=== PATIENT | male | born 1930 | race Caucasian/White ===

== ENCOUNTER 2016-04-29 08:45 | Outpatient (RCR) | payer MEDICARE ==
--- OUTSIDE RECORDS SUMMARY | 2016-04-17 16:05 | XMS REPORT | Continuity of Care Document ---
Author Author [facility] Organization [facility] Address Unknown Phone Unavailable Care Team Providers Care Plant Accountant Name Role Phone Vipul Lincoln PCP [phone] Source Comments Some departments are not documenting in the electronic medical record. If you do not see the information that you expected, contact Release of Information in the Health Information Management department at [phone] for further assistance in locating additional records.[facility] Active Allergies and Adverse Reactions No Known Allergies Current Medications Prescription Sig. Disp. Refills Start End Date Status Date vitamins, multiple cap Take 1 Cap by mouth Active daily. Centrum Silver for Men lisinopril (PRINIVIL; Take 20 mg by mouth Active ZESTRIL) 20 mg tablet daily. aspirin 81 mg chewable Take 1 Tab by mouth 90 Tab 3 10/08/19 Active tablet daily. 15 warfarin (COUMADIN) 5 mg Take 5 mg by mouth every Active tablet other day as needed (alternate with 7.5 every other day). warfarin (COUMADIN) 7.5 Take 7.5 mg by mouth Active mg tablet every other day as needed (alternate with 5 mg). FOLIC Take by mouth daily. Active ACID/MULTIVIT-MIN/LUTEIN (CENTRUM SILVER PO) VIT Take 2 Caps by mouth Active C/E/ZN/COPPR/LUTEIN/ZEAXA daily. N (PRESERVISION AREDS 2 PO) calcium carb and Take 1 Tab by mouth three 10/18/19 Active citrate-vit D3 (CITRACAL times daily with meals. 16 + D SLOW RELEASE) 600 mg calcium- 500 unit ER tablet amLODIPine (NORVASC) 5 mg Take 5 mg by mouth daily. Active tablet atorvastatin (LIPITOR) 20 TAKE ONE TABLET BY MOUTH 90 Tab 0 02/18/20 Active mg tablet ONCE DAILY AT BEDTIME 16 leuprolide 3 month Inject 11.25 mg into the Active (LUPRON DEPOT) 11.25 muscle every 90 days. mg/1.5 mL injection docusate (COLACE) 100 mg Take 100 mg by mouth as Active capsule Needed for Constipation. melatonin 10 mg tab Take 1 Tab by mouth Active daily. ciprofloxacin HCl (CIPRO) Take 1 Tab by mouth twice 2 Tab 0 03/26/20 Active 500 mg tablet daily. 16 Active Problems Problem Noted Date Hematuria, gross 01/29/2016 Last Assessment & Plan: I had an extensive consultation w/ the pt reviewing possible causes of hematuria, including both benign & malignant etiologies. Indications for complete hematuria work-up reviewed in detail. Cystoscopy procedure reviewed in detail. Based on his history & physical exam I recommended cysto --> next avail. Hold off on CT Urogram at this time, per Dr. Harris's recommendation. After careful consideration he wishes to proceed w/ cysto. Mood changes (HCC) 01/29/2016 Last Assessment & Plan: Recommend f/u w/ PCP for further evaluation. Consider possible Haldol Rx, but this should be prescribed & managed by PCP. Insomnia 01/29/2016 Last Assessment & Plan: See mood changes A&P note. Osteopenia 10/15/2015 Overview: DEXA (10/15/2015): Severe osteopenia. Moderate to high risk for fracture. L ast Assessment & Plan: Continue calcium + Vit D supplements. Prostate cancer metastatic to bone ([facility]) 09/26/2015 Overview: Non-Nerve Sparing RRP -- 09/03/2006; Dr. Harris pT3b N0 Mx, [place] 4+3=7 w/ Tertiary 5, (+)margins. Biochemical recurrence s/p Salvage XRT, completed May 2007. Post-Salvage XRT PSA; initially undetectable, but started to increase in 2012. Bone scan (09/27/2015): Scattered osseous metastatic disease. Initiate ADT, first Lupron injection 10/15/2015. L ast Assessment & Plan: See prostate cancer A&P note. Non-ST elevated myocardial infarction (HCC) 10/26/2014 Coronary artery disease 10/26/2014 Overview: 09/20/14 Echo: EF 60%. Mild concentric LVH. Mild left atrial dilation. No significant valvular abnormalities. Mildly dilated sinuses of Valsalva. 10/02/14 Regadenoson Thallium: EF 57%. Large intense mid to distal anteroapical and inferoapical perfusion abnormality which is mostly reversible, implying high grade proximal to mid LAD disease. 10/04/14 Cath: Multivessel coronary artery disease with greater than 90% heavily calcified stenosis in the mid LAD. Moderate disease in the mid circumflex with a calcific 40% to 50% stenosis. Moderate to severe disease in a large RCA with mid RCA having 60-70% focal stenosis and a PLV branch having 70% stenosis. 10/05/14 PCI/Stent Successful orbital atherectomy and stenting with DEVORA (Promus 2.75 X 20 mm stent) in mid LAD, which was post dilated to a 3.25 size at 20 atmospheres. Dual antiplatelet therapy continued at least 1 year unless contraindicated by bleeding. Diverticulitis 09/20/2014 Prostate cancer (HCC) 07/14/2006 Overview: Non-Nerve Sparing RRP -- 09/03/2006; Dr. Harris pT3b N0 Mx, [place] 4+3=7 w/ Tertiary 5, (+)margins. Biochemical recurrence s/p Salvage XRT, completed May 2007. Post-Salvage XRT PSA; initially undetectable, but started to increase in 2012. Bone scan (09/27/2015): Scattered osseous metastatic disease. Initiate ADT, first Lupron injection 10/15/2015. L ast Assessment & Plan: PSA reviewed & responding appropriately to ADT. ED (erectile dysfunction) Overview: (+)baseline ED prior to non-nerve sparing prostatectomy. L ast Assessment & Plan: Not interested in further tx options. Obesity (BMI 30-39.9) Most Recent Encounters Date Type Specialty Providers Description 03/26/2016 Procedure visit Urology Joo Harris MD Hematuria , gross (Primary Dx) 03/19/2016 Telephone Cardiology Jessica Soares, RN Echo Results 03/14/2016 Telephone Cardiology Yesenia De Leon RN Medication Question - patient needs to hold ASA for procedure 03/26/16 03/10/2016 Hospital Cardiology Darrell Velez MD Encounter 03/10/2016 Office Visit Cardiology Darrell Velez MD Cardiac Eval - follow-up CAD, HFpEF, HTN 02/19/2016 Telephone Cardiology Jeremy Haney RN Lab Request 02/16/2016 Refill Cardiology Darrell Velez MD Medication Refill - atorvastatin 02/04/2016 Hospital Oncology Joo Harris MD Encounter 01/29/2016 Office Visit Urology Joo Harris MD Prostate cancer (HCC) (Primary Dx); Prostate cancer metastatic to bone (HCC); Osteopenia; Obesity (BMI 30-39.9); Hematuria, gross; Mood changes (HCC); Insomnia, unspecified type 01/25/2016 [facility] Maldonado Melo PA-C Malignant neoplasm of Encounter prostate Social History Tobacco Use Types Packs/Day Years Used Date Current Every Day Smoker Cigars Smokeless Tobacco: Never Used Comments: 2-5 cigars/ day. Alcohol Use Drinks/Week oz/Week Comments Yes 0.0 Last Filed Vital Signs Vital Sign Reading Time Taken Blood Pressure 148/69 03/26/2016 12:55 PM PAPER FEEDER Pulse 86 03/26/2016 12:55 PM PAPER FEEDER Temperature 36.4 C (97.6 F) 02/04/2016 12:00 PM CDT Respiratory Rate - - Height 1.626 m (5' 4") 03/26/2016 12:55 PM PAPER FEEDER Weight 89.177 kg (196 lb 9.6 oz) 03/26/2016 12:55 PM PAPER FEEDER Body Mass Index 33.73 03/26/2016 12:55 PM PAPER FEEDER Oxygen Saturation 92% 03/10/2016 9:19 AM PAPER FEEDER Plan of Care Date Type Specialty Providers Description 05/29/2016 Appointment Oncology 05/29/2016 Appointment Oncology 06/04/2016 Appointment Urology Joo Harris MD [address] [place] [address] [phone] (Fax) 06/09/2016 Appointment Cardiology Darrell Velez MD [address] [place] [address] [phone] (Fax) Health Maintenance Due Date Last Done Comments Physical (Comprehensive) 08/18/1937 Exam Pertussis Vaccine 08/18/1942 Tetanus Vaccine 08/18/1948 Shingles Vaccine 1991 Prevnar/Pneumovax (#1) 08/18/1996 Influenza Vaccine 12/06/2015 Procedures from Last 3 Months Procedure Name Priority Date/Time Associated Diagnosis Comments [facility] CYSTOURE[facility] Routine 03/26/2016 Hematuria, gross Results for this 1:26 PM PAPER FEEDER procedure are in the results section. Results from Last 3 Months CYSTOSCOPY (03/26/2016 1:26 PM) Cholo Harris MD 03/26/20161:26 PM Procedure:Cystoscopy Surgeon:Joo Harris MD Preoperative Diagnosis:History of Gross Hematuria while on Coumadin Postoperative Diagnosis:ANDREW Anesthesia:Intraurethral 2% Lidocaine Gel Complications:None. Indications for Procedure:85 y.o. male with GPH.He signed informed consent prior to procedure. Description of Operative Procedure:After he was prepped and draped in the usual sterile fashion and placed in the low lithotomy position, a flexible cystoscope was advanced into his urethra, which was noted to be nl.The membranous urethra was noted to be nl.Bladder was then entered and systematically reviewed.Bilateral ureteral orifices were nl in size, shape and position with clear efflux.Rest of the bladder was reviewed and has 2+ trabeculations.No evidence of diverticula, lesions or stones.He tolerated the procedure very well. I gave him one more day of antibiotics.I read his CT scan results to him verbatim.He says he will watch for any stone pain on the Right. Follow-up is already set up. Joo Harris MD 2-D + DOPPLER ECHOCARDIOGRAM (03/10/2016 11:30 AM) Component Value Range BSA 2.04 m2 ECHO EF 50 % Referring Provider Vipul Lincoln LVIDD 5.0 4.2-5.9 cm LVIDS 3.4 cm IVS 1.1 0.6-1.0 cm PW 1.1 0.6-1.0 cm FS 32.00 28-44 % EF 54.40 % LA size 4.2 3.0-4.0 cm LA volume 56.8 18-58 mL Left Atrium Index 27.84 10-32 Right Ventricular Basal 3.8 cm (2.4-4.2) Diameter Right Atrial Area 16.2 cm2 (<=18) Right Ventricular Mid 2.8 cm (2.0-3.5) Diameter Right Ventricular Long 6.9 cm (5.6-8.6) Diameter Ao root annulus 2.2 1.4-2.6 cm Sinus 3.8 2.1-3.5 cm STJ 2.7 1.7-3.4 cm Proximal aorta 3.4 2.1-3.4 cm AV peak velocity 1.4 m/s TV rest pulmonary artery 22 mmHg pressure E/A ratio 0.55 TDI e' 0.060 m/s E/E' ratio 10.00 MV Peak E Hamlet PW 0.600 m/s MV Peak A Hamlet 1.100 m/s Narrative LVEH=50-55% With Mild Abnormal Septal Motion And Mid To Distal Anterosepal-Apical Hypokinesis Mild Concentric LVH Mild Left Atrial Dilatation Mild Aortic Valve Sclerosis Poorly Seen Mild Mitral Annular Calcification Mild Aortic Root Dilatation No Pericardial Effusion PASP=22mmHg PROSTATIC SPECIFIC ANTIGEN-PSA (01/25/2016 10:29 AM) Component Value Range Prostatic Specific 0.03 <4.0 NG/ML Antigen Specimen Blood
[2016-04-17 16:31] LABS: BASOPHILS % (AUTO) 1 % (0-10); EOSINOPHILS # (AUTO) 0.4 10^3/uL (0.0-0.3); EOSINOPHILS % (AUTO) 7 % (0-10); LYMPHOCYTES # (AUTO) 1.4 X 10^3 (1.0-4.0); LYMPHOCYTES % (AUTO) 24 % (12-44); MEAN CORPUSCULAR HGB CONC 34 G/DL (32-36); MEAN CORPUSCULAR VOLUME 92 FL (80-99); MONOCYTES # (AUTO) 0.6 X 10^3 (0.0-1.0); MONOCYTES % (AUTO) 11 % (0-12); NEUTROPHILS # (AUTO) 3.5 X 10^3 (1.8-7.8); NEUTROPHILS % (AUTO) 58 % (42-75); PLATELET COUNT 262 10^3/uL (130-400); RED BLOOD COUNT 3.81 10^6/uL (4.35-5.85)
[2016-04-17 16:32] LABS: MEAN CORPUSCULAR HEMOGLOBIN 31 PG (25-34)
[2016-04-17 17:08] LABS: ALANINE AMINOTRANSFERASE 27 U/L (0-55); ALBUMIN 4.2 G/DL (3.2-4.5); ANION GAP 8 MMOL/L (5-14); ASPARTATE AMINO TRANSFERASE 22 U/L (5-34); BILIRUBIN,TOTAL 0.5 MG/DL (0.1-1.0); BLOOD UREA NITROGEN 24 MG/DL (7-18); BUN/CREATININE RATIO 21; CALCIUM 10.6 MG/DL (8.5-10.1); CARBON DIOXIDE 26 MMOL/L (21-32); CHLORIDE 106 MMOL/L (98-107); CREATININE SERUM 1.12 MG/DL (0.60-1.30); GFR ESTIMATED > 60; GLUCOSE 114 MG/DL (70-105); POTASSIUM 4.2 MMOL/L (3.6-5.0); SODIUM 140 MMOL/L (135-145); TOTAL PROTEIN 7.1 G/DL (6.4-8.2)
[~2016-04-29 08:45] MED LIST: CALC-732 PO; CALTRATE; DOCU100T7 PO; DOXY25TA43 PO; GLUC-194 PO; HYDR-757 PO; LISI20TA PO; LISI5TAB14 PO; MULT-873 PO; MULT1TAB63; NAPR220C11 PO; NAPR220T76 PO; SENN1TAB76; WARF10TA4 PO; WARF5TAB PO; WARF7.5T PO; WRF10T PO; WRF2.5T PO; ZLP10T PO
== END 2016-07-16 | disposition home or self-care (01) ==
LOC: ONC 08:45
PROVIDERS: ATTEND Internal Medicine Hematology & Oncology
DX: Z08 Encounter for follow-up examination after completed treatment for malignant neoplasm (principal); Z85.46 Personal history of malignant neoplasm of prostate; Z85.038 Personal history of other malignant neoplasm of large intestine
CPT/HCPCS: 36415; 80053; 82378; 84153; 85025; 99213

== ENCOUNTER 2016-10-28 10:06 | Outpatient (RCR) | payer MEDICARE ==
[2016-10-23 13:43] LABS: BASOPHILS % (AUTO) 0 % (0-10); EOSINOPHILS # (AUTO) 0.4 10^3/uL (0.0-0.3); EOSINOPHILS % (AUTO) 4 % (0-10); LYMPHOCYTES # (AUTO) 1.6 X 10^3 (1.0-4.0); LYMPHOCYTES % (AUTO) 17 % (12-44); MEAN CORPUSCULAR HEMOGLOBIN 31 PG (25-34); MEAN CORPUSCULAR HGB CONC 33 G/DL (32-36); MEAN CORPUSCULAR VOLUME 94 FL (80-99); MEAN PLATELET VOLUME 9.5 FL (7.4-10.4); MONOCYTES # (AUTO) 0.9 X 10^3 (0.0-1.0); MONOCYTES % (AUTO) 10 % (0-12); NEUTROPHILS # (AUTO) 6.3 X 10^3 (1.8-7.8); NEUTROPHILS % (AUTO) 69 % (42-75); PLATELET COUNT 266 10^3/uL (130-400); RED BLOOD COUNT 3.86 10^6/uL (4.35-5.85); WHITE BLOOD COUNT 9.1 10^3/uL (4.3-11.0)
[2016-10-23 14:23] LABS: ALANINE AMINOTRANSFERASE 21 U/L (0-55); ALBUMIN 3.9 GM/DL (3.2-4.5); ANION GAP 5 MMOL/L (5-14); ASPARTATE AMINO TRANSFERASE 17 U/L (5-34); BILIRUBIN,TOTAL 0.7 MG/DL (0.1-1.0); BLOOD UREA NITROGEN 19 MG/DL (7-18); BUN/CREATININE RATIO 18; CALCIUM 10.7 MG/DL (8.5-10.1); CARBON DIOXIDE 29 MMOL/L (21-32); CHLORIDE 105 MMOL/L (98-107); CREATININE SERUM 1.03 MG/DL (0.60-1.30); GFR ESTIMATED > 60; GLUCOSE 106 MG/DL (70-105); POTASSIUM 4.6 MMOL/L (3.6-5.0); SODIUM 139 MMOL/L (135-145); TOTAL PROTEIN 7.2 GM/DL (6.4-8.2)
== END 2017-01-03 | disposition home or self-care (01) ==
LOC: ONC 10:06
PROVIDERS: ATTEND Internal Medicine Hematology & Oncology
DX: Z08 Encounter for follow-up examination after completed treatment for malignant neoplasm (principal); C79.51 Secondary malignant neoplasm of bone; Z85.46 Personal history of malignant neoplasm of prostate; Z85.038 Personal history of other malignant neoplasm of large intestine; D64.9 Anemia, unspecified; E83.52 Hypercalcemia; Z86.718 Personal history of other venous thrombosis and embolism; Z79.01 Long term (current) use of anticoagulants; Z79.899 Other long term (current) drug therapy
CPT/HCPCS: 36415; 80053; 82378; 82728; 83540; 84153; 85025; 99213

== ENCOUNTER 2016-12-22 12:44 | Emergency (ER) | payer MEDICARE ==
[~2016-12-22] VITALS: Ht 162.6 cm; Wt 85.1 kg
--- OUTSIDE RECORDS SUMMARY | 2016-12-22 13:10 | XMS REPORT | Clinical Summary ---
Author Author [facility] Organization [facility] Address Unknown Phone Unavailable Care Team Providers Care Marketing Operations Assistant Name Role Phone PCP Unavailable Source Comments Some departments are not documenting in the electronic medical record. If you do not see the information that you expected, contact Release of Information in the Health Information Management department at [phone] for further assistance in locating additional records.[facility] Allergies No Known Allergies Current Medications Prescription Sig. [...] every Active tablet other day as needed (Thursday and ). warfarin (COUMADIN) 7.5 Take 7.5 mg by mouth Active mg tablet every other day as needed (Thursday, Thursday, Thursday, Thursday and Thursday). FOLIC Take by mouth daily. Active ACID/MULTIVIT-MIN/LUTEIN (CENTRUM SILVER PO) VIT Take 2 Caps by mouth Active C/E/ZN/COPPR/LUTEIN/ZEAXA daily. N (PRESERVISION AREDS 2 PO) calcium carb and Take 1 Tab by mouth three 10/18/19 Active citrate-vit D3 (CITRACAL times daily with meals. 16 + D SLOW RELEASE) 600 mg calcium- 500 unit ER tabletIndications: Osteopenia leuprolide 3 month Inject 11.25 mg into the Active (LUPRON DEPOT) 11.25 muscle every 90 days. mg/1.5 mL injection docusate (COLACE) 100 mg Take 100 mg by mouth as Active capsule Needed for Constipation. LOPERAMIDE HCL (IMODIUM Take by mouth. Active PO) FERROUS SULFATE (IRON PO) Take by mouth. Active carvedilol (COREG) 6.25 Take 1 Tab by mouth twice 180 Tab 3 06/10/19 Active mg tablet daily with meals. Take 17 with food. atorvastatin (LIPITOR) 20 1 Tab at bedtime daily. 90 Tab 2 06/18/19 Active mg tablet 17 amLODIPine (NORVASC) 2.5 TAKE ONE TABLET BY MOUTH 90 tablet 3 Active mg tablet ONCE DAILY 17 amLODIPine (NORVASC) 2.5 Take 1 Tab by mouth 90 Tab 1 06/10/1912/01 Discontin mg tablet daily. 17 17 ued Active Problems Problem Noted Date Candidal dermatitis 06/04/2016 Last Assessment & Plan: Recommend topical antifungal powder prn. Mood changes ([facility]) 01/29/2016 Last Assessment & Plan: Recommend f/u w/ PCP for further evaluation. Consider possible Haldol Rx, but this should be prescribed & managed by PCP. Insomnia 01/29/2016 Last Assessment & Plan: See mood changes A&P note. Osteopenia 10/15/2015 Overview: DEXA (10/15/2015): Severe osteopenia. Moderate to high risk for fracture. DEXA Scan (11/19/2016): Statistically significant interval increase in bone mineral density, now with findings of moderate osteopenia, greatest within the bilateral femoral necks. L ast Assessment & Plan: May decrease Ca + Vit D supplement down to 1 tab BID w/ meals. If Oncologist feels that Zometa may be indicated, do not see urologic contraindication at this time. Repeat DEXA ~ Nov 2018. Prostate cancer metastatic to bone ([facility]) 09/26/2015 Overview: Non-Nerve Sparing RRP -- 09/03/2006; Dr. Harris pT3b N0 Mx, [place] 4+3=7 w/ Tertiary 5, (+)margins. Biochemical recurrence s/p Salvage XRT, completed May 2007. Post-Salvage XRT PSA; initially undetectable, but started to increase in 2012. Bone scan (09/27/2015): Scattered osseous metastatic disease. Initiate ADT, first Lupron injection 10/15/2015. L ast Assessment & Plan: PSA reviewed & stable compared to prior results. Continue Lupron inj q 4 mo. RTC 8 mo w/ PSA. Non-ST elevated myocardial infarction (HCC) 10/26/2014 Coronary [...] least 1 year unless contraindicated by bleeding. 03/10/16 Echo: EF 50-55% with mild abnormal septal motion and mid to distal anteroseptal-apical hypokinesis. Mild concentric LVH. Mild LA dilatation. Mild AV sclerosis. Mild mitral annular calcification. Mild aortic root dilatation. PAP=22 MmHg. Diverticulitis 09/20/2014 Prostate cancer ([facility]) 07/14/2006 Overview: Non-Nerve Sparing RRP -- 09/03/2006; Dr. Harris pT3b N0 Mx, [place] 4+3=7 w/ Tertiary 5, (+)margins. Biochemical recurrence [...] in further tx options. 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 Androgen deprivation therapy Chronic anticoagulation Resolved Problems Problem Noted Date Resolved Date Hematuria, gross 01/29/2016 06/04/2016 Last Assessment & Plan: I had an [...] consideration he wishes to proceed w/ cysto. Encounters Date Type Specialty Care Team Description 12/01/2016 Refill Cardiology Darrell Velez MD Medication Refill (amlodipine) 11/18/2016 Office Visit Urology Joo Harris MD Prostate cancer metastatic to bone (HCC) (Primary Dx);Osteopenia of multiple sites;Hypogonadism, male;Androgen deprivation therapy;Obesity (BMI 30-39.9) 11/18/2016 [facility] Maldonado Melo PA-C Encounter 11/18/2016 [facility] Maldonado Melo PA-C Encounter 11/18/2016 [facility] Maldonado Melo PA-C Encounter 11/17/2016 [facility] Joo Harris MD Malignant neoplasm of Encounter prostate (HCC) 11/17/2016 Orders Only Urology Joo Harris MD Prostate cancer (HCC) (Primary Dx) 09/26/2016 [facility] Maldonado Melo PA-C Encounter 09/26/2016 [facility] Joo Harris MD Encounter Maldonado Melo PA-C 09/25/2016 Orders Only Urology Maldonado Melo PA-C 09/25/2016 Orders Only Oncology Joo Harris MD from Last 3 Months Family History Medical History Relation Name Comments Diabetes Brother Cancer Father Diabetes Mother Diabetes Sister Relation Name Status Comments Brother Father Mother Sister Social History Tobacco Use Types Packs/Day Years Used Date Former Smoker Cigars Quit: 09/04/2014 Smokeless Tobacco: Never Used Comments: 2-5 cigars/ day. Alcohol Use Drinks/Week oz/Week Comments Yes 0.0 Sex Assigned at Date Recorded Not on file Last Filed Vital Signs Vital Sign Reading Time Taken Blood Pressure 172/82 11/18/2016 3:48 PM CDT Pulse 78 11/18/2016 3:48 PM CDT Temperature 36.6 C (97.8 F) 09/26/2016 9:47 AM CDT Respiratory Rate 16 09/26/2016 9:47 AM CDT Oxygen Saturation 98% 09/26/2016 9:47 AM CDT Inhaled Oxygen - - Concentration Weight 90.7 kg (200 lb) 11/18/2016 3:48 PM CDT Height 162.6 cm (5' 4") 11/18/2016 3:48 PM CDT Body Mass Index 34.33 11/18/2016 3:48 PM CDT Plan of Treatment Health Maintenance Due Date Last Done Comments PHYSICAL (COMPREHENSIVE) 08/18/1937 EXAM PERTUSSIS VACCINE 08/18/1942 TETANUS VACCINE 08/18/1948 SHINGLES VACCINE 1991 PREVNAR/PNEUMOVAX (#1) 08/18/1996 INFLUENZA VACCINE 01/04/2017 Results * NM BONE SCAN WHOLEBODY (11/18/2016 1:02 PM) Specimen Performing Laboratory [facility] RESULTS Impressions Interval improvement in scattered osseous metastatic disease as described above. Approved by Morales Sanders M.D. on 11/18/2016 4:04 PM By my electronic signature, I attest that I have personally reviewed the images for this examination and formulated the interpretations and opinions expressed in this report Finalized by Tim Cyr M.D. on 11/18/2016 4:15 PM. Dictated by Morales Sanders M.D. on 11/18/2016 1:01 PM. Narrative BONE SCAN OF THE WHOLE BODY CLINICAL HISTORY: 86-year-old male. Prostate cancer. RADIOPHARMACEUTICAL: 23.9 mCi IV Technetium-99m methylene diphosphonate (MDP) TECHNIQUE: Three hours following the intravenous injection of Tc-99m MDP, a whole body bone scan was performed. Images were acquired in the anterior and posterior projections. COMPARISON: September 27, 2015 FINDINGS: Physiologic activity is present within the kidneys and bladder. Degenerative changes are seen within the shoulders, wrists/hands, hips, knees, and ankles/feet. Interval decreased uptake within focal areas of abnormal uptake within the sacrum/lumbar spine, posterior right fourth rib, posterior medial right seventh rib/costovertebral junction, and thoracic spine. Procedure Note Interface, Radiant Results - 11/18/2016 4:19 PM CDT BONE SCAN OF THE WHOLE BODY CLINICAL HISTORY: 86-year-old male. Prostate cancer. RADIOPHARMACEUTICAL: 23.9 mCi IV Technetium-99m methylene diphosphonate (MDP) TECHNIQUE: Three hours following the intravenous injection of Tc-99m MDP, a whole body bone scan was performed. Images were acquired in the anterior and posterior projections. COMPARISON: September 27, 2015 FINDINGS: Physiologic activity is present within the kidneys and bladder. Degenerative changes are seen within the shoulders, wrists/hands, hips, knees, and ankles/feet. Interval decreased uptake within focal areas of abnormal uptake within the sacrum/lumbar spine, posterior right fourth rib, posterior medial right seventh rib/costovertebral junction, and thoracic spine. IMPRESSION Interval improvement in scattered osseous metastatic disease as described above. Approved by Morales Sanders M.D. on 11/18/2016 4:04 PM By my electronic signature, I attest that I have personally reviewed the images for this examination and formulated the interpretations and opinions expressed in this report Finalized by Tim Cyr M.D. on 11/18/2016 4:15 PM. Dictated by Morales Sanders M.D. on 11/18/2016 1:01 PM. * BONE DENSITY SPINE/HIP (11/18/2016 9:11 AM) Specimen Performing Laboratory [facility] RESULTS Impressions Statistically significant interval increase in bone mineral density, now with findings of moderate osteopenia, greatest within the bilateral femoral necks. Patient is considered at moderate risk for fracture and follow-up in one year is recommended. Approved by Morales Sanders M.D. on 11/18/2016 10:30 AM By my electronic signature, I attest that I have personally reviewed the images for this examination and formulated the interpretations and opinions expressed in this report Finalized by Kang Goetz M.D. on 11/18/2016 10:57 AM. Dictated by Morales Sanders M.D. on 11/18/2016 10:14 AM. Narrative DEXA Bone Mineral Density Clinical History: 86-year-old male. Severe osteopenia. Findings: Comparison: October 15, 2015 LUMBAR SPINE, L1-L4 Current: 1.155 g/cm2, T-score of -0.7 Previous: 1.139 g/cm2, T-score of -0.8 LEFT FEMORAL NECK Current: 0.861 g/cm2, T-score of -1.6 Previous: 0.761 g/cm2, T-score of -2.4 LEFT TOTAL HIP Current: 0.945 g/cm2, T-score of -1.1 Previous: 0.908 g/cm2, T-score of -1.3 RIGHT FEMORAL NECK Current: 0.859 g/cm2, T-score of -1.6 Previous: 0.777 g/cm2, T-score of -2.3 RIGHT TOTAL HIP Current: 0.904 g/cm2, T-score of -1.4 Previous: 0.859 g/cm2, T-score of -1.7 Definitions: T-score> -0.99=Normal T-score-1.00 to -1.49=mild osteopenia T-score-1.50 to -1.99=moderate osteopenia T-score-2.00 to -2.49=severe osteopenia T-score< -2.50=osteoporosis Changes in density of <=0.05 g/cm2 are not statistically significant. RECOMMENDATIONS: Normal: Low risk for fracture - f/u in 2 years Mild/Mod osteopenia: Moderate risk for fracture - f/u in 1 year Severe osteopenia: Moderate/high risk for fracture - f/u in 1 year Osteoporosis: High risk for fracture - f/u in 1 year Procedure Note Interface, Radiant Results - 11/18/2016 11:00 AM CDT DEXA Bone Mineral Density Clinical History: 86-year-old male. Severe osteopenia. Findings: Comparison: October 15, 2015 LUMBAR SPINE, L1-L4 Current: 1.155 g/cm2, T-score of -0.7 Previous: 1.139 g/cm2, T-score of -0.8 LEFT FEMORAL NECK Current: 0.861 g/cm2, T-score of -1.6 Previous: 0.761 g/cm2, T-score of -2.4 LEFT TOTAL HIP Current: 0.945 g/cm2, T-score of -1.1 Previous: 0.908 g/cm2, T-score of -1.3 RIGHT FEMORAL NECK Current: 0.859 g/cm2, T-score of -1.6 Previous: 0.777 g/cm2, T-score of -2.3 RIGHT TOTAL HIP Current: 0.904 g/cm2, T-score of -1.4 Previous: 0.859 g/cm2, T-score of -1.7 Definitions: T-score > -0.99=Normal T-score -1.00 to -1.49=mild osteopenia T-score -1.50 to -1.99=moderate osteopenia T-score -2.00 to -2.49=severe osteopenia T-score < -2.50=osteoporosis Changes in density of <=0.05 g/cm2 are not statistically significant. RECOMMENDATIONS: Normal: Low risk for fracture - f/u in 2 years Mild/Mod osteopenia: Moderate risk for fracture - f/u in 1 year Severe osteopenia: Moderate/high risk for fracture - f/u in 1 year Osteoporosis: High risk for fracture - f/u in 1 year IMPRESSION Statistically significant interval increase in bone mineral density, now with findings of moderate osteopenia, greatest within the bilateral femoral necks. Patient is considered at moderate risk for fracture and follow-up in one year is recommended. Approved by Morales Sanders M.D. on 11/18/2016 10:30 AM By my electronic signature, I attest that I have personally reviewed the images for this examination and formulated the interpretations and opinions expressed in this report Finalized by Kang Goetz M.D. on 11/18/2016 10:57 AM. Dictated by Morales Sanders M.D. on 11/18/2016 10:14 AM. * PROSTATIC SPECIFIC ANTIGEN-PSA (11/17/2016 9:41 AM) Only the most recent of 2 results within the time period is included. Component Value Ref Range Prostatic Specific 0.02 <4.0 NG/ML Antigen Specimen Performing Laboratory Blood [facility] [address] [place] [address] from Last 3 Months
--- OUTSIDE RECORDS SUMMARY | 2016-12-22 13:11 | XMS REPORT | Encounter Summary ---
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) [address] Osteopenia of [place] [address] [place] [address] multiple sites [place], [place] Phone: P [phone] rocedures Phone: [place] BONE SCAN [phone] WHOLEBODY * Radiology Services Status Reason Specialty Diagnoses / Referred By Referred To Procedures Contact Contact No Auth Needed Radiology Diagnoses Maldonado Melo Ww Nuclear Med 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) [address] Osteopenia of [place] [address] [place] [address] multiple sites [place], [place] Phone: P [phone] rocedures Phone: [place] BONE SCAN [phone] WHOLEBODY Reason for Visit * Radiology Services Status Reason Specialty Diagnoses / Referred By Referred To Procedures Contact Contact No Auth Needed Radiology Diagnoses Maldonado Melo Ww Nuclear Med 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) [address] Osteopenia of [place] [address] [place] [address] multiple sites [place], [place] Phone: P [phone] rocedures Phone: NM BONE SCAN [phone] WHOLEBODY Encounter Details Date Type Department Care Team Description 11/18/2016 [facility] Maldonado Melo PA-C Encounter [facility] [address] [place] [address] [place] [address] [place] [address] [phone] Social History Tobacco Use Types Packs/Day Years Used Date Former Smoker Cigars Quit: 09/04/2014 Smokeless Tobacco: Never Used Comments: 2-5 cigars/ day. Alcohol Use Drinks/Week oz/Week Comments Yes 0.0 Sex Assigned at Date Recorded Not on file as of this encounter Medications at Time of Discharge Medication Sig. Disp. Refills Start Date End Date aspirin 81 mg chewable Take 1 Tab by mouth 90 Tab 3 10/07/2014 tablet daily. atorvastatin (LIPITOR) 20 1 Tab at bedtime daily. 90 Tab 2 06/17/2016 mg tablet calcium carb and Take 1 Tab by mouth three 10/18/2015 citrate-vit D3 (CITRACAL times daily with meals. + D SLOW RELEASE) 600 mg calcium- 500 unit ER tabletIndications: Osteopenia carvedilol (COREG) 6.25 Take 1 Tab by mouth twice 180 Tab 3 2016 mg tablet daily with meals. Take with food. docusate (COLACE) 100 mg Take 100 mg by mouth as capsule Needed for Constipation. FERROUS SULFATE (IRON PO) Take by mouth. FOLIC Take by mouth daily. ACID/MULTIVIT-MIN/LUTEIN (CENTRUM SILVER PO) leuprolide 3 month Inject 11.25 mg into the (LUPRON DEPOT) 11.25 muscle every 90 days. mg/1.5 mL injection lisinopril (PRINIVIL; Take 20 mg by mouth ZESTRIL) 20 mg tablet daily. LOPERAMIDE HCL (IMODIUM Take by mouth. PO) VIT Take 2 Caps by mouth C/E/ZN/COPPR/LUTEIN/ZEAXA daily. N (PRESERVISION AREDS 2 PO) vitamins, multiple cap Take 1 Cap by mouth daily. Centrum Silver for Men warfarin (COUMADIN) 5 mg Take 5 mg by mouth every tablet other day as needed (Thursday and ). warfarin (COUMADIN) 7.5 Take 7.5 mg by mouth mg tablet every other day as needed (Thursday, Thursday, Thursday, Thursday and Thursday). amLODIPine (NORVASC) 2.5 Take 1 Tab by mouth 90 Tab 1 06/09/2016 mg tablet daily. as of this encounter Plan of Treatment Not on fileas of this encounter Results * NM BONE SCAN WHOLEBODY (11/18/2016 [...] Morales Sanders M.D. on 11/18/2016 1:01 PM. in this encounter Visit Diagnoses Diagnosis Prostate cancer metastatic to bone (HCC) Osteopenia of multiple sites in this encounter Administered Medications Medication Order MAR Action Action Date Dose Rate Site RP DX Tc-99m medronate (MDP) injection Given 11/18/2016 23.9 25 millicurie 09:18 CDT millicuries 25 millicurie, Intravenous, ONCE, 1 dose, 11/18/16 at 0945 in this encounter
--- OUTSIDE RECORDS SUMMARY | 2016-12-22 13:11 | XMS REPORT | Encounter Summary ---
Author Author [facility] Organization [facility] Address Unknown Phone Unavailable Care Team Providers Care Spare Fixer Name Role Phone PCP Unavailable Encounter Details Date Type Department Care Team Description 11/17/2016 Orders Only [facility] Joo Harris MD Prostate cancer (HCC) Physicians - Urology [address] [facility] (Primary Dx) 2ND FLOOR POD A [place] [address] [place] [address] OFFICE BLDG [phone] [place] [address] Social History Tobacco Use Types Packs/Day Years Used Date Former Smoker Cigars Quit: 09/04/2014 Smokeless Tobacco: Never Used Comments: 2-5 cigars/ day. Alcohol Use Drinks/Week oz/Week Comments Yes 0.0 Sex Assigned at Date Recorded Not on file as of this encounter Plan of Treatment Not on fileas of this encounter Results * PROSTATIC SPECIFIC ANTIGEN-PSA (11/17/2016 9:41 AM) Component Value Ref Range Prostatic Specific 0.02 <4.0 NG/ML Antigen Specimen Performing Laboratory Blood [facility] [address] [place] [address] in this encounter Visit Diagnoses Diagnosis Prostate cancer (HCC) - Primary Malignant neoplasm of prostate in this encounter
--- OUTSIDE RECORDS SUMMARY | 2016-12-22 13:11 | XMS REPORT | Encounter Summary ---
Author Author [facility] Organization [facility] Address Unknown Phone Unavailable Care Team Providers Care Fingernail Sculpturer Name Role Phone PCP Unavailable Reason for Visit * Reason Comments Prostate Cancer Encounter Details Date Type Department Care Team Description 11/18/2016 Office Visit [facility] Joo Harris MD Prostate cancer Physicians - Urology [address] [facility] metastatic to bone (HCC) 2ND FLOOR POD A [place] [address] (Primary Dx);Osteopenia [address] [place] [address] of multiple OFFICE BL [phone] sites;Hypogonadism, [place], [place] male;Androgen deprivation [phone] therapy;Obesity (BMI [phone] 30-39.9) Social History Tobacco Use Types Packs/Day Years Used Date Former Smoker Cigars Quit: 09/04/2014 Smokeless Tobacco: Never Used Comments: 2-5 cigars/ day. Alcohol Use Drinks/Week oz/Week Comments Yes 0.0 Sex Assigned at Date Recorded Not on file as of this encounter Last Filed Vital Signs Vital Sign Reading Time Taken Blood Pressure 172/82 11/18/2016 3:48 PM CDT Pulse 78 11/18/2016 3:48 PM CDT Temperature - - Respiratory Rate - - Oxygen Saturation - - Inhaled Oxygen - - Concentration Weight 90.7 kg (200 lb) 11/18/2016 3:48 PM CDT Height 162.6 cm (5' 4") 11/18/2016 3:48 PM CDT Body Mass Index 34.33 11/18/2016 3:48 PM CDT in this encounter Progress Notes * Joo Harris MD - 11/18/2016 3:15 PM CDT Formatting of this note may be different from the original. Date of Service: 11/18/2016 Subjective: Darrell Brown is a 86 y.o. male. Chief Complaint Patient presents with Prostate Cancer History of Present Illness Very pleasant w/ Prostate Cancer s/p non-nerve sparing RRP on 09/03/2006. (+) BCR s/p Salvage XRT, completed May 2007. Post-Salvage XRT PSA was undetectable until May 2012. PSA slowly increasing since that time. PSA hx detailed below. Bone scan (09/27/2015): Scattered osseous metastatic disease. CT A/P (09/27/2015): 1. Prior prostatectomy and pelvic lymph node dissection without recurrent pelvic mass or lymphadenopathy. 2. 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 Initiate ADT, first Lupron injection 10/15/2015. (+)hot flashes, but not bothersome. Continues to get his Lupron injection at the [facility]. Last Lupron given on 09/26/2016. Denies appetite loss, wt loss, or bone pain. (+)more easily fatigued. Denies chest pain or [employer]. (+)h/o severe osteopenia. Currently managed w/ Calcium + Vit D supplements. States his local oncologist is concerned about his borderline elevated hypercalcemia (10/23/2016=10.7). (+)HIREN, (+)frequency, urgency. (+)interval gross hematuria presumably d/t elevated INR. Prior hematuria w/u (Mar 2016) --> Negative. Interval Hx: Notes increased weakness x 1-2 d after Lupron inj, but slowly improved w/ time. Notes increased forgetfulness. PSA Hx: Lab Results Component Value Date PSA 0.02 11/17/2016 PSA 0.01 09/26/2016 PSA 0.01 05/29/2016 PSA 0.03 01/25/2016 PSA 3.27 09/10/2015 PSA 1.41 06/08/2015 PSA 0.39 12/07/2014 PSA 0.30 06/06/2014 PSA 0.09 11/22/2013 PSA 0.05 05/27/2013 PSA 0.01 05/21/2012 PSA <0.01 05/28/2011 PSA <0.01 04/26/2010 PSA <0.01 10/25/2009 PSA 0.01 05/21/2009 PSA <0.01 11/10/2008 PSA 0.01 05/15/2008 PSA 0.01 10/27/2007 PSA 0.01 06/23/2007 PSA 0.02 02/17/2007 PSA 0.01 11/19/2006 PSA 8.62 (H) 05/11/2006 PSA 6.45 (H) 10/02/2005 PSA 6.64 (H) 12/26/2004 PSA 7.05 (H) 05/24/2004 PSA 7.00 (H) 12/18/2003 PSA 12/18/2003 Reference range: 0.0 to 4.0 Unit: ng/mL (NOTE) TEST INFORMATION: Prostate Specific Antigen The Juan Modular E170 PSA method was used. Results obtained with different assay methods or kits cannot be used interchangeably. The Juan Modular E170 PSA method is approved for use as an aid in the detection of prostate cancer when used in conjunction with a digital rectal exam in men age 50 and older. The Juan Modular E170 PSA method is also indicated for the serial measurement of PSA to aid in the prognosis and management of prostate cancer patients. Elevated PSA concentrations can only suggest the presence of prostate cancer until biopsy is performed. PSA concentrations can also be elevated in benign prostatic hyperplasia or inflammatory conditions of the prostate. PSA is generally not elevated in healthy men or men with non-prostatic carcinoma. PSA 6.70 (H) 05/25/2003 PSA 05/25/2003 Reference range: 0.0 to 4.0 Unit: ng/mL (NOTE) TEST INFORMATION: Prostate Specific Antigen The Juan Modular E170 PSA method is used. Results obtained with different assay methods or kits cannot be used interchangeably. The Juan Modular E170 PSA method is approved for use as an aid in the detection of prostate cancer when used in conjunction with a digital rectal exam in men age 50 and older. The Juan Modular E170 PSA method is also indicated for the serial measurement of PSA to aid in the prognosis and management of prostate cancer patients. Elevated PSA concentrations can only suggest the presence of prostate cancer until biopsy is performed. PSA concentrations can also be elevated in benign prostatic hyperplasia or inflammatory conditions of the prostate. PSA is generally not elevated in healthy men or men with non-prostatic carcinoma. Review of Systems Constitutional: Positive for diaphoresis and fatigue. Negative for activity change, appetite change, chills, fever and unexpected weight change. HENT: Positive for hearing loss. Negative for congestion, mouth sores and sinus pressure. Eyes: Positive for visual disturbance. Respiratory: Negative for apnea, cough, chest tightness and shortness of breath. Cardiovascular: Positive for leg swelling. Negative for chest pain and palpitations. Gastrointestinal: Negative for abdominal pain, blood in stool, constipation, diarrhea, nausea, rectal pain and vomiting. Genitourinary: Positive for hematuria. Negative for decreased urine volume, difficulty urinating, discharge, dysuria, enuresis, flank pain, frequency, genital sores, penile pain, penile swelling, scrotal swelling, testicular pain and urgency. Musculoskeletal: Negative for arthralgias, back pain, gait problem and myalgias. Skin: Negative for rash and wound. Neurological: Negative for dizziness, tremors, seizures, syncope, weakness, light-headedness, numbness and headaches. Hematological: Negative for adenopathy. Bruises/bleeds easily. Psychiatric/Behavioral: Negative for decreased concentration and dysphoric mood. The patient is not nervous/anxious. Objective: amLODIPine (NORVASC) 2.5 mg tablet Take 1 Tab by mouth daily. aspirin 81 mg chewable tablet Take 1 Tab by mouth daily. atorvastatin (LIPITOR) 20 mg tablet 1 Tab at bedtime daily. calcium carb and citrate-vit D3 (CITRACAL + D SLOW RELEASE) 600 mg calcium- 500 unit ER tablet Take 1 Tab by mouth three times daily with meals. carvedilol (COREG) 6.25 mg tablet Take 1 Tab by mouth twice daily with meals. Take with food. docusate (COLACE) 100 mg capsule Take 100 mg by mouth as Needed for Constipation. FERROUS SULFATE (IRON PO) Take by mouth. FOLIC ACID/MULTIVIT-MIN/LUTEIN (CENTRUM SILVER PO) Take by mouth daily. leuprolide 3 month (LUPRON DEPOT) 11.25 mg/1.5 mL injection Inject 11.25 mg into the muscle every 90 days. lisinopril (PRINIVIL; ZESTRIL) 20 mg tablet Take 20 mg by mouth daily. LOPERAMIDE HCL (IMODIUM PO) Take by mouth. VIT C/E/ZN/COPPR/LUTEIN/ZEAXAN (PRESERVISION AREDS 2 PO) Take 2 Caps by mouth daily. vitamins, multiple cap Take 1 Cap by mouth daily. Centrum Silver for Men warfarin (COUMADIN) 5 mg tablet Take 5 mg by mouth every other day as needed (Thursday and ). warfarin (COUMADIN) 7.5 mg tablet Take 7.5 mg by mouth every other day as needed (Thursday, Thursday, Thursday, Thursday and Thursday). Vitals: 11/18/16 1548 BP: 172/82 Pulse: 78 Weight: 90.7 kg (200 lb) Height: 162.6 cm (64") Body mass index is 34.33 kg/(m^2). Physical Exam Constitutional: He is oriented to person, place, and time. He appears well- developed and well-nourished. No distress. HENT: Head: Normocephalic and atraumatic. Eyes: No scleral icterus. Pulmonary/Chest: No respiratory distress. Abdominal: Obese. Neurological: He is alert and oriented to person, place, and time. No cranial nerve deficit. Psychiatric: He has a normal mood and affect. His behavior is normal. Judgment and thought content normal. Vitals reviewed. Lab Results Component Value Date PSA 0.02 11/17/2016 Imaging: DEXA Scan (11/19/2016): Statistically significant interval increase in bone mineral density, now with findings of moderate osteopenia, greatest within the bilateral femoral necks. Patient is considered at moderate risk for fracture and follow-up in one year is recommended. Bone Scan (11/19/2016): Interval improvement in scattered osseous metastatic disease as described above. 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 Harris pT3b N0 Mx, Pool 4+3=7 w/ Tertiary 5, (+)margins. Biochemical recurrence s/p Salvage XRT, completed May 2007. Post-Salvage XRT PSA; initially undetectable, but started to increase in 2012. Bone scan (09/27/2015): Scattered osseous metastatic disease. Initiate ADT, first Lupron injection 10/15/2015. Osteopenia DEXA (10/15/2015): Severe osteopenia. Moderate to high risk for fracture. DEXA Scan (11/19/2016): Statistically significant interval increase in bone mineral density, now with findings of moderate osteopenia, greatest within the bilateral femoral necks. Prostate cancer metastatic to bone (HCC) PSA reviewed & stable compared to prior results. Continue Lupron inj q 4 mo. RTC 8 mo w/ PSA. Osteopenia May decrease Ca + Vit D supplement down to 1 tab BID w/ meals. If Oncologist feels that Zometa may be indicated, do not see urologic contraindication at this time. Repeat DEXA ~ Nov 2018. Orders Placed This Encounter PROSTATIC SPECIFIC ANTIGEN-PSA Laz Melo PA-C Urology 100% of today's 25 min appt spent in direct [id number] consultation & coordination of care. ATTESTATION I personally interviewed and examined the patient. I have reviewed the history , physical, impression and plan outlined by the Physician Education Managers. The patient presents with (HPI) mCRPC, On examination there is stable disease*, My impression is as above, My plan is continue present rx and follow with oncology. Staff name: Joo Harris MD Date: 11/19/2016 in this encounter Plan of Treatment Name Priority Associated Diagnoses Order Schedule PROSTATIC SPECIFIC ANTIGEN-PSA Routine Prostate cancer Expected: 2017 metastatic to bone (HCC) (Approximate), Expires: 11/19/2017 as of this encounter Visit Diagnoses Diagnosis Prostate cancer metastatic to bone (HCC) - Primary Osteopenia of multiple sites Hypogonadism, male Other testicular hypofunction Androgen deprivation therapy Encounter for therapeutic drug monitoring Obesity (BMI 30-39.9) Obesity, unspecified in this encounter
--- OUTSIDE RECORDS SUMMARY | 2016-12-22 13:11 | XMS REPORT | Encounter Summary ---
Author Author [facility] Organization [facility] Address Unknown Phone Unavailable Care Team Providers Care Rn Heart Name Role Phone PCP Unavailable Reason for Visit * Reason Comments Medication Refill amlodipine Encounter Details Date Type Department Care Team Description 12/01/2016 Refill [facility] Darrell Velez MD Medication Refill [address] [place] [address] (amlodipine) [address] [place] [address] [place] [address] [phone] Social History Tobacco Use Types Packs/Day Years Used Date Former Smoker Cigars Quit: 09/04/2014 Smokeless Tobacco: Never Used Comments: 2-5 cigars/ day. Alcohol Use Drinks/Week oz/Week Comments Yes 0.0 Sex Assigned at Date Recorded Not on file as of this encounter Plan of Treatment Not on fileas of this encounter Visit Diagnoses Not on filein this encounter
--- OUTSIDE RECORDS SUMMARY | 2016-12-22 13:11 | XMS REPORT | Encounter Summary ---
Author Author [facility] Organization [facility] Address Unknown Phone Unavailable Care Team Providers Care Cartridge Assembler Name Role Phone PCP Unavailable Reason for Referral * Radiology Services Status Reason Specialty Diagnoses / Referred By Referred To Procedures Contact Contact No Auth Needed Radiology Diagnoses Maldonado Melo Ww Gen Radiology Osteopenia of [address] multiple sites [address] [place] [address] [address] [address] B[place] DENSITY [place], [place] Phone: SPINE/HIP [phone] * Radiology Services Status Reason Specialty Diagnoses / Referred By Referred To Procedures Contact Contact No Auth Needed Radiology Diagnoses Maldonado Melo Ww Gen Radiology Osteopenia of [place]-C [address] [place] [address] multiple sites [address] [place] [address] [address] [address] B[place]ENS[place], [place] Phone: SPINE/HIP [phone] Reason for Visit * Radiology Services Status Reason Specialty Diagnoses / Referred By Referred To Procedures Contact Contact No Auth Needed Radiology Diagnoses Maldonado Melo Ww Gen Radiology Osteopenia of [place]-C [address] [place] [address] multiple sites [address] [place] [address] [address] [address] BONE DENSITY [place], [place] Phone: SPINE/HIP [phone] Encounter Details Date Type Department Care Team Description 11/18/2016 [facility] Maldonado Melo PA-C Encounter [facility] [address] [place] [address] [place] [address] [phone] Social History Tobacco Use Types Packs/Day Years [...] on fileas of this encounter Results * BONE DENSITY SPINE/HIP (11/18/2016 9:11 AM) [...] Morales Sanders M.D. on 11/18/2016 10:14 AM. in this encounter Visit Diagnoses Diagnosis Osteopenia of multiple sites in this encounter
--- OUTSIDE RECORDS SUMMARY | 2016-12-22 13:11 | XMS REPORT | Encounter Summary ---
Author Author [facility] Organization [facility] Address Unknown Phone Unavailable Care Team Providers Care Supervisor Photocomposition Name Role Phone PCP Unavailable Reason for Visit * Radiology Services Status Reason Specialty Diagnoses / Referred By Referred To Procedures Contact Contact No Auth Needed Radiology Diagnoses Maldonado Melo Ww Nuclear Med Prostate cancer GIA [address] [place] metastatic to [address] bone (HCC) [address] Osteopenia of [place] [address] [place] [address] multiple sites [place], [place] Phone: P [phone] rocedures Phone: NM BONE SCAN [phone] WHOLEBODY Encounter Details Date Type Department Care Team Description 11/18/[address] [facility] Maldonado Melo PA-C Encounter [facility] [address] [place] [address] [place] [address] [place] [address] [phone] Social History Tobacco Use Types Packs/Day Years [...]
--- OUTSIDE RECORDS SUMMARY | 2016-12-22 13:11 | XMS REPORT | Encounter Summary ---
Author Author [facility] Organization [facility] Address Unknown Phone Unavailable Care Team Providers Care Conference Planner Name Role Phone PCP Unavailable Encounter Details Date Type Department Care Team Description 11/17/2016 [facility] Joo Harris MD Malignant neoplasm of Encounter [address] prostate ([place]CC) [place] [address] [address] [place] [address] [phone] Social History Tobacco Use Types Packs/Day Years [...] Performing Laboratory Blood [facility] [address] [place] [address] in this encounter Visit Diagnoses Diagnosis Prostate cancer (HCC) Malignant neoplasm of prostate in this encounter Admitting Diagnoses Diagnosis Malignant neoplasm of prostate (HCC) Malignant neoplasm of prostate in this encounter
--- OUTSIDE RECORDS SUMMARY | 2016-12-22 13:12 | XMS REPORT | Encounter Summary ---
Author Author [facility] Organization [facility] Address Unknown Phone Unavailable Care Team Providers Care Outpatient Receptionist Name Role Phone PCP Unavailable Reason for Visit * Reason Comments Heme/Onc Care Encounter Details Date Type Department Care Team Description 09/26/2016 Hospital [facility] Maldonado Melo PA-C Encounter Cancer [place] - [address] [place] [address] [address] [address] [place] [address] [phone] Social History Tobacco Use Types Packs/Day Years Used Date Former Smoker Cigars Quit: 09/04/2014 Smokeless Tobacco: Never Used Comments: 2-5 cigars/ day. Alcohol Use Drinks/Week oz/Week Comments Yes 0.0 Sex Assigned at Date Recorded Not on file as of this encounter Last Filed Vital Signs Vital Sign Reading Time Taken Blood Pressure 143/74 09/26/2016 9:47 AM CDT Pulse 88 09/26/2016 9:47 AM CDT Temperature 36.6 C (97.8 F) 09/26/2016 9:47 AM CDT Respiratory Rate 16 09/26/2016 9:47 AM CDT Oxygen Saturation 98% 09/26/2016 9:47 AM CDT Inhaled Oxygen - - Concentration Weight - - Height - - Body Mass Index - - in this encounter Discharge Instructions * Patient Instructions - Valerie Tapia RN - 09/26/2016 9:55 AM CDT [facility] Chemotherapy Instructions Darrell Brown 09/26/2016 Call Immediately to report the following: Unexplained bleeding or bleeding that will not stop Difficulty swallowing Shortness of breath, wheezing, or trouble breathing Rapid, irregular heartbeat; chest pain Dizziness, lightheadedness Rash or cut that swells or turns red, feels hot or painful, or begin to ooze Diarrhea Uncontrolled nausea or vomiting Fever of 100.4 F or higher, or chills Important Phone Numbers: Cancer Center Main Number (answered 24 hours a day) [phone] [facility] Center Scheduling (appointments) [phone] Manager Sql [phone] [employer] [phone] in this encounter Medications at Time of Discharge [...] mg tablet daily. as of this encounter Progress Notes * Valerie Tapia RN - 09/26/2016 9:56 AM CDT Patient received Lupron 30mg given to right gluteal intramuscular and tolerated without difficulty. No pertinent changes since last assessment. in this encounter Plan of Treatment Not on fileas of this encounter Visit Diagnoses Diagnosis Hypogonadism, male Other testicular hypofunction Androgen deprivation therapy Encounter for therapeutic drug monitoring Osteopenia of multiple sites Prostate cancer metastatic to bone (HCC) Prostate cancer (HCC) Malignant neoplasm of prostate in this encounter Administered Medications Medication Order MAR Action Action Date Dose Rate Site leuprolide(+) 4 month (LUPRON DEPOT) Given 09/26/2016 30 mg Gluteal, injection 30 mg 09:52 CDT Right 30 mg, Intramuscular, ONCE, 1 dose, Thu09/26/16 at 0945, For Intramuscular use ONLY. NOTE: This is a HIGH ALERT Medication. in this encounter
--- OUTSIDE RECORDS SUMMARY | 2016-12-22 13:12 | XMS REPORT | Encounter Summary ---
Author Author [facility] Organization [facility] Address Unknown Phone Unavailable Care Team Providers Care Architectural Technologist Name Role Phone PCP Unavailable Encounter Details Date Type Department Care Team Description 09/25/2016 Orders Only [facility] Joo Harris MD [facility] - [facility] Exam [address] [place] [address] [place] [address] [phone] Social History Tobacco Use Types Packs/Day Years [...]
--- OUTSIDE RECORDS SUMMARY | 2016-12-22 13:12 | XMS REPORT | Encounter Summary ---
Author Author [facility] Organization [facility] Address Unknown Phone Unavailable Care Team Providers Care Door And Arrival Attendant Name Role Phone PCP Unavailable Encounter Details Date Type Department Care Team Description 09/25/2016 Orders Only [facility] Maldonado Melo PA-C Physicians - Urology [address] MED [address] [place] [address] [address]LO[address] [phone] [place] [address] [phone] Social History Tobacco Use Types Packs/Day Years [...]
--- OUTSIDE RECORDS SUMMARY | 2016-12-22 13:12 | XMS REPORT | Encounter Summary ---
Author Author [facility] Organization [facility] Address Unknown Phone Unavailable Care Team Providers Care Computer Network Specialist Name Role Phone PCP Unavailable Encounter Details Date Type Department Care Team Description 09/26/2016 Hospital [facility] Joo Harris MD Encounter Cancer [facility] - [facility] Lab [address] [place] [address] [facility] [address] [place] [address] [phone] Maldonado Ferro PA-C [address] [place] [address] [phone] Social History Tobacco Use Types Packs/Day Years [...] this encounter Results * PROSTATIC SPECIFIC ANTIGEN-PSA (09/26/2016 9:00 AM) Component Value Ref Range Prostatic Specific 0.01 <4.0 NG/ML Antigen Specimen Performing Laboratory Blood [facility] [address] [place] [address] in this encounter Visit Diagnoses Diagnosis Prostate cancer metastatic to bone (HCC) in this encounter
--- NOTE | 2016-12-22 13:35 | ED Upper Extremity ---
General Chief Complaint: Trauma-Non Activation Stated Complaint: FALL/LEFT ARM LAC Nursing Triage Note: Patient reports falling last night about 2100, patient c/o hitting elbow on nightstand and not being able to get it to stop bleeding. patient denies LOC or hitting head. Nursing Sepsis Screen: No Definite Risk Source: patient Exam Limitations: no limitations History of Present Illness Time seen by provider: 13:32 Initial Comments To ER with a persistently bleeding wound to the dorsal left elbow after striking it on the bedside table last night at 2100. Tetanus is not up-to- date. He is on Coumadin. Onset: just prior to arrival Severity: moderate (910) Pain/Injury Location: left elbow Modifying Factors: Improves With Movement Allergies and Home Medications Allergies Coded Allergies: NKANo Known Allergies (Verified Allergy, Unknown, 01/22/06) Home Medications Docusate Sodium 100 Mg Tablet, 200 MG PO DAILY PRN for CONSTIPATION, (Reported) TAKES 2 (100MG) TABLETS Glucosam/Chondroit/C/Manganese 1 Each Capsule, 2 CAP PO DAILY, (Reported) Hydrocodone/Acetaminophen 1 Each Tablet, 1 EACH PO Q4H PRN for PAIN, #10 Prescribed by: TJ FLOWER on 02/21/16 1838 Lisinopril 20 Mg Tablet, 20 MG PO DAILY, (Reported) Multivitamins-Min/Fa/Ginkgo 1 Each Tablet, 1 TAB PO DAILY, (Reported) Naproxen Sodium 220 Mg Capsule, 220 MG PO DAILY, (Reported) Warfarin Sod 7.5 Mg Tablet, 7.5 MG PO UD, (Reported) TAKES SUN, MON, WED, THURS, FRI. Warfarin Sodium 10 Mg Tablet, 10 MG PO UD, (Reported) PATIENT TAKES ON AND SAT Constitutional: see HPI EENTM: see HPI Respiratory: no symptoms reported Cardiovascular: no symptoms reported Genitourinary: no symptoms reported Musculoskeletal: no symptoms reported Skin: no symptoms reported Psychiatric/Neurological: No Symptoms Reported Past Oyutsec-Ekaqbk-Nhsekh Hx Patient Social History Alcohol Use: Occasionally Uses Number of Drinks Today: BB Alcohol Beverage of Choice: [place] Recreational Drug Use: No Smoking Status: Never a Smoker Recent Foreign Travel: No Contact w/Someone Who Travel: No Recent Infectious Disease Expo: No Recent Hopitalizations: No Physical Abuse: No Sexual Abuse: No Immunizations Up To Date Date of Influenza Vaccine: Jan 04, 2011 Surgeries History of Surgeries: Yes (PROSTATE, HERNIA REPAIR, Colon resection) Surgeries: Abdominal Respiratory History of Respiratory Disorde: No (SMOKER/CIGARS) Cardiovascular History of Cardiac Disorders: Yes Cardiac Disorders: Hypertension Neurological History of Neurological Disord: No Reproductive System Hx Reproductive Disorders: No Gastrointestinal History of Gastrointestinal Di: Yes (Hernia repair, Colon resection) Gastrointestinal Disorders: Gastrointestinal Bleed, Diverticulosis Musculoskeletal History of Musculoskeletal Dis: No Endocrine History of Endocrine Disorders: No Cancer History of Cancer: Yes Cancer: Colon Psychosocial History of Psychiatric Problem: Yes Behavioral Health Disorders: Anxiety Suicide Risk Score: 0 Integumentary History of Skin or Integumenta: No Blood Transfusions History of Blood Disorders: Yes (SEPSIS) Family Medical History Family Medial History: Cancer of mouth 19 FATHER (PT UNSURE OF TYPE OF CANCER FATHER HAD) Diabetes mellitus 19 MOTHER G8 BROTHER Physical Exam Vital Signs Vital Sign - Last 12Hours 12/22/16 13:04 Temp 98.7 Pulse 87 Resp 18 B/P (MAP) 164/82 Pulse Ox 99 Capillary Refill : Less Than 3 Seconds General Appearance: WD/WN, no apparent distress HEENT: PERRL/EOMI, normal ENT inspection Neck: non-tender, full range of motion Respiratory: no respiratory distress, no accessory muscle use Gastrointestinal: non tender, soft Shoulder: normal inspection, non-tender Elbow/Forearm: Left, abrasions (there is a superficial skin tear to the dorsal aspect of the left elbow that is persistently oozing blood easily controlled with direct pressure. I did clean this with chlorhexidine/saline and closed with skin glue then wrapped with nonadherent gauze and Coban.) Neurologic/Psychiatric: alert, normal mood/affect, oriented x 3 Skin: normal color, warm/dry Progress/Results/Core Measures Results/Orders My Orders Orders - TJ FLOWER MEDICAL RECEPTION SPECIALIST Dipht,Pertuss(Acell),Tet Adult (Boostrix (12/22/16 13:45) Vital Signs/I&O Vital Sign - Last 12Hours 12/22/16 13:04 Temp 98.7 Pulse 87 Resp 18 B/P (MAP) 164/82 Pulse Ox 99 Blood Pressure Mean: 109 Departure Impression Impression: Primary Impression: Skin tear Disposition: 01 HOME, SELF-CARE Condition: Stable Departure-Patient Inst. Decision time for Depature: 13:34 Referrals: JOSE ALEJANDRO DONALDSON MD (PCP/Family) Primary Care Physician Patient Instructions: NO INSTRUCTIONS GIVEN Add. Discharge Instructions: 1. Return to ER for any concerns 2. You may remove the bandage tomorrow 3. All discharge instructions reviewed with patient and/or family. Voiced understanding. TJ FLOWER APRN Dec 22, 2016 13:35
[2016-12-22 13:43] VITALS: BP 164/82
[2016-12-22] MEDS ORDERED: TETANUS,DIPTH,PERTUSS P/F (BOOSTRIX) 0.5 ML VIAL IM ONE (13:45)
== END 2016-12-22 13:42 | disposition home or self-care (01) ==
LOC: EDUNIT# 12:44 → ER 12:47
DX: S51.012A Laceration without foreign body of left elbow, initial encounter (principal); I10 Essential (primary) hypertension; F41.9 Anxiety disorder, unspecified; Z80.0 Family history of malignant neoplasm of digestive organs; Z85.038 Personal history of other malignant neoplasm of large intestine; Z79.01 Long term (current) use of anticoagulants; Z87.19 Personal history of other diseases of the digestive system; W22.03XA Walked into furniture, initial encounter
CPT/HCPCS: 90715; 99284

== ENCOUNTER 2017-01-16 10:19 | Outpatient (RCR) | payer MEDICARE ==
[2017-01-16 10:32] LABS: BASOPHILS % (AUTO) 1 % (0-10); EOSINOPHILS # (AUTO) 0.4 10^3/uL (0.0-0.3); EOSINOPHILS % (AUTO) 7 % (0-10); HEMATOCRIT 37 % (40-54); HEMOGLOBIN 12.4 G/DL (13.3-17.7); LYMPHOCYTES # (AUTO) 1.3 X 10^3 (1.0-4.0); LYMPHOCYTES % (AUTO) 23 % (12-44); MEAN CORPUSCULAR HEMOGLOBIN 32 PG (25-34); MEAN CORPUSCULAR HGB CONC 34 G/DL (32-36); MEAN CORPUSCULAR VOLUME 95 FL (80-99); MEAN PLATELET VOLUME 9.5 FL (7.4-10.4); MONOCYTES # (AUTO) 0.5 X 10^3 (0.0-1.0); MONOCYTES % (AUTO) 9 % (0-12); NEUTROPHILS # (AUTO) 3.4 X 10^3 (1.8-7.8); NEUTROPHILS % (AUTO) 60 % (42-75); PLATELET COUNT 250 10^3/uL (130-400); RED CELL DISTRIBUTION WIDTH 13.8 % (10.0-14.5); WHITE BLOOD COUNT 5.7 10^3/uL (4.3-11.0)
[2017-01-16 10:55] LABS: ALBUMIN 3.9 GM/DL (3.2-4.5); BILIRUBIN,TOTAL 0.7 MG/DL (0.1-1.0); CALCIUM 10.7 MG/DL (8.5-10.1); CREATININE SERUM 1.15 MG/DL (0.60-1.30); POTASSIUM 4.6 MMOL/L (3.6-5.0); TOTAL PROTEIN 7.3 GM/DL (6.4-8.2)
== END 2017-04-16 | disposition home or self-care (01) ==
LOC: ONC 10:19
PROVIDERS: ATTEND Internal Medicine Hematology & Oncology
DX: Z08 Encounter for follow-up examination after completed treatment for malignant neoplasm (principal); C79.51 Secondary malignant neoplasm of bone; Z85.46 Personal history of malignant neoplasm of prostate; Z85.038 Personal history of other malignant neoplasm of large intestine; D64.9 Anemia, unspecified; E83.52 Hypercalcemia; Z86.718 Personal history of other venous thrombosis and embolism; Z79.01 Long term (current) use of anticoagulants; Z79.899 Other long term (current) drug therapy
CPT/HCPCS: 36415; 80053; 82378; 84153; 85025; 99213

== ENCOUNTER 2017-08-19 12:47 | Outpatient (RCR) | payer MEDICARE ==
[2017-07-17 11:47] LABS: BASOPHILS % (AUTO) 0 % (0-10); EOSINOPHILS # (AUTO) 0.4 10^3/uL (0.0-0.3); EOSINOPHILS % (AUTO) 8 % (0-10); HEMATOCRIT 36 % (40-54); HEMOGLOBIN 12.3 G/DL (13.3-17.7); LYMPHOCYTES # (AUTO) 1.6 X 10^3 (1.0-4.0); LYMPHOCYTES % (AUTO) 29 % (12-44); MEAN CORPUSCULAR HEMOGLOBIN 33 PG (25-34); MEAN CORPUSCULAR HGB CONC 35 G/DL (32-36); MEAN CORPUSCULAR VOLUME 95 FL (80-99); MEAN PLATELET VOLUME 9.8 FL (7.4-10.4); MONOCYTES # (AUTO) 0.6 X 10^3 (0.0-1.0); MONOCYTES % (AUTO) 11 % (0-12); NEUTROPHILS # (AUTO) 2.9 X 10^3 (1.8-7.8); NEUTROPHILS % (AUTO) 52 % (42-75); PLATELET COUNT 224 10^3/uL (130-400); RED BLOOD COUNT 3.76 10^6/uL (4.35-5.85); RED CELL DISTRIBUTION WIDTH 13.5 % (10.0-14.5); WHITE BLOOD COUNT 5.5 10^3/uL (4.3-11.0)
[2017-07-17 12:05] LABS: ALANINE AMINOTRANSFERASE 25 U/L (0-55); ALKALINE PHOSPHATASE 59 U/L (40-136); BILIRUBIN,TOTAL 0.6 MG/DL (0.1-1.0); BUN/CREATININE RATIO 22; CALCIUM 10.3 MG/DL (8.5-10.1); CARBON DIOXIDE 26 MMOL/L (21-32); CHLORIDE 105 MMOL/L (98-107); CREATININE SERUM 1.02 MG/DL (0.60-1.30); GFR ESTIMATED > 60; GLUCOSE 88 MG/DL (70-105); POTASSIUM 4.7 MMOL/L (3.6-5.0); SODIUM 140 MMOL/L (135-145)
== END 2017-10-15 | disposition home or self-care (01) ==
LOC: ONC 12:47
PROVIDERS: ATTEND Internal Medicine Hematology & Oncology
DX: C61 Malignant neoplasm of prostate (principal); C79.51 Secondary malignant neoplasm of bone; Z85.038 Personal history of other malignant neoplasm of large intestine; D64.9 Anemia, unspecified; E83.52 Hypercalcemia; Z86.718 Personal history of other venous thrombosis and embolism; Z79.01 Long term (current) use of anticoagulants; Z79.899 Other long term (current) drug therapy; Z90.49 Acquired absence of other specified parts of digestive tract
CPT/HCPCS: 36415; 80053; 82378; 82728; 83540; 85025; 99213

== ENCOUNTER 2017-09-21 12:02 | Emergency (ER) | payer MEDICARE ==
[~2017-09-21] VITALS: Ht 162.6 cm; Wt 90.7 kg
--- OUTSIDE RECORDS SUMMARY | 2017-09-21 12:10 | XMS REPORT | Clinical Summary ---
Author Author [facility] Organization [facility] Address Unknown Phone Unavailable Care Team Providers Care Gambling Dealer Name Role Phone Maldonado Melo PA-C Unavailable Joo Harris MD Unavailable Brijesh West RN Unavailable Unavailable Pamela Gallardo MD PCP Source Comments Some departments are not documenting in the electronic medical record. If you do not see the information that you expected, contact Release of Information in the Health Information Management department at [phone] for further assistance in locating additional records.[facility] Allergies No Known Allergies Current Medications Prescription [...] 5 mg by mouth every Active tablet Thursday. warfarin (COUMADIN) 7.5 Take 7.5 mg by mouth Active mg tablet every other day as needed (Thursday, Thursday, Thursday, , Thursday, Thursday). VIT Take 2 Caps by mouth Active C/E/ZN/COPPR/LUTEIN/ZEAXA daily. N (PRESERVISION AREDS 2 PO) leuprolide 3 month Inject 11.25 mg into the Active (LUPRON DEPOT) 11.25 muscle every 90 days. mg/1.5 mL injection docusate (COLACE) 100 mg Take 100 mg by mouth as Active capsule Needed for Constipation. LOPERAMIDE HCL (IMODIUM Take 1 tablet by mouth as Active PO) Needed. FERROUS SULFATE (IRON PO) Take 1 tablet by mouth as Active Needed. amLODIPine (NORVASC) 2.5 TAKE ONE TABLET BY MOUTH 90 tablet 3 Active mg tablet ONCE DAILY 17 carvedilol (COREG) 6.25 TAKE ONE TABLET BY MOUTH 180 tablet 1 Active mg tablet TWICE DAILY WITH MEALS 18 atorvastatin (LIPITOR) 20 Take 1 tablet by mouth 90 tablet 0 06/24/19 Active mg tablet daily. 18 calcium carb and Take 1 tablet by mouth Active citrate-vit D3 (CITRACAL twice daily. + D SLOW RELEASE) 600 mg calcium- 500 unit ER tablet pseudoephedrine (SUDAFED) Take 60 mg by mouth every Active 30 mg tablet 4 hours as needed for Congestion. carboxymethyl/glycerin/po Place into or around Active ly80 (REFRESH OPTIVE eye(s) as Needed. ADVANCED OP) Active Problems Problem Noted Date Candidal dermatitis 06/04/2016 Last Assessment & Plan: Recommend topical antifungal powder prn. Mood changes ([facility]) 01/29/2016 Last Assessment & Plan: Recommend [...] femoral necks. L ast Assessment & Plan: Continue Ca + Vit D BID w/ meals. If Oncologist feels that Zometa/ Xgeva may be indicated, do not see urologic contraindication at this time. -- pt is not interested in starting IV meds at this time. Consider repeat DEXA ~ Nov 2018. Prostate cancer metastatic to bone (HCC) 09/26/2015 Overview: Non-Nerve Sparing RRP -- 09/03/2006; Dr. Harris pT3b N0 Mx, [place] 4+3=7 w/ Tertiary 5, (+)margins. Biochemical recurrence s/p Salvage XRT, completed May 2007. Post-Salvage XRT PSA; initially undetectable, but started to increase in 2012. Bone scan (09/27/2015): Scattered osseous metastatic disease. Initiate ADT, first Lupron injection 10/15/2015. L ast Assessment & Plan: PSA reviewed --> remains low & stable. Continue Lupron injections & PSA q 4 mo. RTC 8 mo w/ Dr. Gorman, w/ repeat PSA. Non-ST elevated myocardial infarction (HCC) 10/26/2014 [...] calcification. Mild aortic root dilatation. PAP=22 MmHg. 03/18/17 Echo: EF 65%. Trace MV and TV regurgitation. Sinuses of Valsalva are mildly dilated. PAP=28 mmHg Diverticulitis 09/20/2014 Prostate cancer (HCC) 07/14/2006 Overview: Non-Nerve Sparing RRP -- 09/03/2006; Dr. Harris pT3b N0 Mx, [place] 4+3=7 w/ Tertiary 5, (+)margins. Biochemical recurrence s/p Salvage XRT, completed May 2007. Post-Salvage XRT PSA; initially undetectable, but started to increase in 2012. Bone scan (09/27/2015): Scattered osseous metastatic disease. Initiate ADT, first Lupron injection 10/15/2015. L ast Assessment & Plan: PSA reviewed & responding appropriately to ADT. Erectile dysfunction following radical prostatectomy Overview: (+)baseline ED prior to non-nerve sparing [...] Encounters Date Type Specialty Care Team Description 09/08/2017 Hospital Oncology Darrell Gorman MD Encounter Maldonado Melo PA-C 08/04/2017 Telephone Oncology Maldonado Melo PA-C Appointment Request 07/29/2017 Orders Only Oncology Joo Harris MD Prostate cancer metastatic to bone (HCC) (Primary Dx) 07/28/2017 Office Visit Urology Joo Harris MD Prostate cancer metastatic to bone (HCC) (Primary Dx); Androgen deprivation therapy; Osteopenia of multiple sites 07/27/2017 Hospital Lab Joo Harris MD Malignant neoplasm of Encounter prostate (HCC) 07/06/2017 Office Visit Cardiology Darrell Velez MD Cardiac Eval ( follow-up CAD) 06/23/2017 Refill Cardiology Darrell Velez MD Medication Refill (atorvastatin) from Last 3 Months Family History Medical History Relation Name Comments Diabetes Brother Cancer Father Diabetes Mother Diabetes Sister Relation Name Status Comments Brother Father Mother Sister Social History Tobacco Use Types Packs/Day Years Used Date Former Smoker Cigars, Cigarettes Quit: 09/04/2014 Smokeless Tobacco: Never Used Comments: 2-5 cigars/ day. Alcohol Use Drinks/Week oz/Week Comments Yes 0.0 Sex Assigned at Date Recorded Not on file Last Filed Vital Signs Vital Sign Reading Time Taken Blood Pressure 168/69 09/08/2017 11:05 AM CDT Pulse 73 09/08/2017 11:05 AM CDT Temperature 36.8 C (98.2 F) 09/08/2017 11:05 AM CDT Respiratory Rate 16 09/08/2017 11:05 AM CDT Oxygen Saturation 99% 09/08/2017 11:05 AM CDT Inhaled Oxygen - - Concentration Weight 90.9 kg (200 lb 6.4 oz) 07/28/2017 11:02 AM CDT Height 162.6 cm (5' 4") 07/28/2017 11:02 AM CDT Body Mass Index 34.4 07/28/2017 11:02 AM CDT Plan of Treatment Health Maintenance Due Date Last Done Comments PHYSICAL (COMPREHENSIVE) 08/18/1938 EXAM PERTUSSIS VACCINE 08/18/1942 TETANUS VACCINE 08/18/1948 SHINGLES VACCINE 1991 PNEUMONIA (PCV13/PPSV23) 08/18/1996 VACCINES (1 of 2 - PCV13) INFLUENZA VACCINE 01/04/2018 01/18/2010 Results * PROSTATIC SPECIFIC ANTIGEN-PSA (07/27/2017 12:18 PM) Component Value Ref Range Prostatic Specific 0.07 <6.01 NG/ML Antigen Comment: REFERENCE RANGES AGEPSA VALUE <50<=1.5 50-54 <=2.0 55-59 <=3.0 60-69 <=4.0 70+<=6.0 NOTE NEW REFERENCE RANGES Specimen Performing Laboratory Blood [facility] [address] [place] [address] from Last 3 Months
--- OUTSIDE RECORDS SUMMARY | 2017-09-21 12:10 | XMS REPORT | Encounter Summary ---
Author Author [facility] Organization [facility] Address Unknown Phone Unavailable Care Team Providers Care Cotton Presser Name Role Phone Maldonado Melo PA-C Unavailable Joo Harris MD Unavailable Brijesh West RN Unavailable Unavailable Pamela Gallardo MD PCP Reason for Visit * Reason Comments Medication Refill atorvastatin Encounter Details Date Type Department Care Team Description 06/23/2017 Refill [facility] Darrell Velez MD Medication Refill [address] [place] [address] (atorvastatin) [address] [place] [address] [place] [address] [phone] Social History Tobacco Use Types Packs/Day Years [...]
--- OUTSIDE RECORDS SUMMARY | 2017-09-21 12:10 | XMS REPORT | Encounter Summary ---
Author Author [facility] Organization [facility] Address Unknown Phone Unavailable Care Team Providers Care Procedure Manager Name Role Phone Maldonado Melo PA-C Unavailable Joo Harris MD Unavailable Brijesh West RN Unavailable Unavailable Pamela Gallardo MD PCP Reason for Visit * Reason Comments Heme/Onc Care Injection Lupron * Treatment (Routine) Status Reason Specialty Diagnoses / Referred By Referred To Procedures Contact Contact Authorized Oncology Diagnoses Joo Harris J Prostate cancer MD Wilton Núñez MD ([facility]) [address] [place] [address] [place], [place] bone (HCC) [place] [address] [place] [address] Phone: multiple sites Hypogonadism, male Fax: Androgen [phone] deprivation therapy P rocedures leuprolide(+) 4 month (LUPRON DEPOT) Encounter Details Date Type Department Care Team Description 09/08/2017 [facility] Darrell Gorman MD Encounter [facility] - [facility] [address] [place] [address] [phone] [facility] [address] [place] [phone] Maldonado rossi PA-C [address] [place] [address] [phone] Social History Tobacco Use Types Packs/Day Years [...] Mass Index - - in this encounter Medications at Time of Discharge Medication Sig. Disp. Refills Start Date End Date amLODIPine (NORVASC) 2.5 TAKE ONE TABLET BY MOUTH 90 tablet 3 2016 mg tablet ONCE DAILY aspirin 81 mg chewable Take 1 Tab by mouth 90 Tab 3 10/07/2014 tablet daily. atorvastatin (LIPITOR) 20 Take 1 tablet by mouth 90 tablet 0 2017 mg tablet daily. calcium carb and Take 1 tablet by mouth citrate-vit D3 (CITRACAL twice daily. + D SLOW RELEASE) 600 mg calcium- 500 unit ER tablet carboxymethyl/glycerin/po Place into or around ly80 (REFRESH OPTIVE eye(s) as Needed. ADVANCED OP) carvedilol (COREG) 6.25 TAKE ONE TABLET BY MOUTH 180 tablet 1 2017 mg tablet TWICE DAILY WITH MEALS docusate (COLACE) 100 mg Take 100 mg by mouth as capsule Needed for Constipation. FERROUS SULFATE (IRON PO) Take 1 tablet by mouth as Needed. leuprolide 3 month Inject 11.25 mg into the (LUPRON DEPOT) 11.25 muscle every 90 days. mg/1.5 mL injection lisinopril (PRINIVIL; Take 20 mg by mouth ZESTRIL) 20 mg tablet daily. LOPERAMIDE HCL (IMODIUM Take 1 tablet by mouth as PO) Needed. pseudoephedrine (SUDAFED) Take 60 mg by mouth every 30 mg tablet 4 hours as needed for Congestion. VIT Take 2 Caps by mouth C/E/ZN/COPPR/LUTEIN/ZEAXA daily. N (PRESERVISION AREDS 2 PO) vitamins, multiple cap Take 1 Cap by mouth daily. Centrum Silver for Men warfarin (COUMADIN) 5 mg Take 5 mg by mouth every tablet Thursday. warfarin (COUMADIN) 7.5 Take 7.5 mg by mouth mg tablet every other day as needed (Thursday, Thursday, Thursday, , Thursday, Thursday). as of this encounter Progress Notes * Debora Benson RN - 09/08/2017 11:27 AM CDT Patient received Lupron and tolerated without difficulty. No pertinent changes since last assessment. in this encounter Miscellaneous Notes * Addendum Note - Genaro Funes - 09/08/2017 11:59 PM CDT Encounter addended by: Genaro Funes on: 09/16/2017 8:26 AM
Actions taken: Charge Capture section accepted in this encounter Plan of Treatment Not on fileas of this encounter Visit Diagnoses Diagnosis Androgen deprivation therapy Encounter for therapeutic drug monitoring Prostate cancer metastatic to bone (HCC) Prostate cancer (HCC) Malignant neoplasm of prostate Administered Medications Medication Order MAR Action Action Date Dose Rate Site leuprolide(+) 4 month (LUPRON DEPOT) Given 09/08/2017 30 mg Gluteal, injection 30 mg 11:19 CDT Left 30 mg, Intramuscular, ONCE, 1 dose, Thu09/08/17 at 1115, NURSING: For IM administration only. NOTE: This is a HIGH ALERT Medication. in this encounter
--- OUTSIDE RECORDS SUMMARY | 2017-09-21 12:10 | XMS REPORT | Encounter Summary ---
Author Author [facility] Organization [facility] Address Unknown Phone Unavailable Care Team Providers Care Manager Media Relations Name Role Phone Maldonado Melo PA-C Unavailable Joo Harris MD Unavailable Brijesh West RN Unavailable Unavailable Pamela Gallardo MD PCP Reason for Referral * Status Reason Specialty Diagnoses / Referred By Referred To Procedures Contact Contact New Request Procedures Darrell Velez, REQUEST FOR CARDIOLOGY [address] [place] [address] Reason for Visit * Reason Comments Cardiac Eval follow-up CAD Encounter Details Date Type Department Care Team Description 07/06/[address] [facility] Cardiology Darrell Velez MD Cardiac Eval (follow-up [address] [place] [address] CAD) [address] [place] [address] [place] [address] [phone] Social History Tobacco Use Types Packs/Day Years Used Date Former Smoker Cigars Quit: 09/04/2014 Smokeless Tobacco: Never Used Comments: 2-5 cigars/ day. Alcohol Use Drinks/Week oz/Week Comments Yes 0.0 Sex Assigned at Date Recorded Not on file as of this encounter Last Filed Vital Signs Vital Sign Reading Time Taken Blood Pressure 118/68 07/06/2017 12:57 PM CDT Pulse 76 07/06/2017 12:57 PM CDT Temperature - - Respiratory Rate - - Oxygen Saturation 96% 07/06/2017 12:57 PM CDT Inhaled Oxygen - - Concentration Weight 92.1 kg (203 lb) 07/06/2017 12:57 PM CDT Height 167.6 cm (5' 6") 07/06/2017 12:57 PM CDT Body Mass Index 32.77 07/06/2017 12:57 PM CDT in this encounter Instructions * Patient Instructions - Killian Macdonald MBBS - 07/06/2017 1:45 PM CDT Continue the current dose of medications for high blood pressure Follow up in one year in this encounter Progress Notes * Killian Macdonald MBBS - 07/06/2017 1:45 PM CDT Formatting of this note may be different from the original. Date of Service: 07/06/2017 Darrell Brown is a 86 y.o. male. HPI: Darrell Brown is an 85 y.o. 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 He currently denies any symptoms. His blood pressure has been well controlled. He denies any chest pain, shortness of breath, palpitations, orthopnea, paroxysmal nocturnal dyspnea and weight gain. He underwent an echocardiogram in March 2017 which showed normal ejection fraction with mild diastolic dysfunction. No significant valvular abnormalities were noted. Denies other symptoms. Vitals: 07/06/17 1257 BP: 118/68 Pulse: 76 SpO2: 96% Weight: 92.1 kg (203 lb) Height: 1.676 m (5' 6") Body mass index is 32.77 kg/m. 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 Androgen deprivation therapy Chronic anticoagulation Mood changes (HCC) 01/29/2016 Insomnia 01/29/2016 Obesity (BMI 30-39.9) Osteopenia 10/15/2015 DEXA (10/15/2015): Severe osteopenia. Moderate to high risk for fracture. DEXA Scan (11/19/2016): Statistically significant interval increase in bone mineral density, now with findings of moderate osteopenia, greatest within the bilateral femoral necks. Prostate cancer metastatic to bone (HCC) 09/26/2015 Non-Nerve Sparing RRP -- 09/03/2006; Dr. Harris pT3b N0 Mx, [place] 4+3=7 w/ Tertiary 5, (+)margins. Biochemical recurrence s/p Salvage XRT, completed May 2007. Post-Salvage XRT PSA; initially undetectable, but started to increase in 2012. Bone scan (09/27/2015): Scattered osseous metastatic disease. Initiate ADT, first Lupron injection 10/15/2015. Non-ST elevated myocardial infarction (HCC) 10/26/2014 Coronary artery disease 10/26/2014 09/20/14 Echo: EF 60%. Mild concentric LVH. [...] focal stenosis and a PLV branch having 70 % stenosis. 10/05/14 PCI/Stent Successful orbital atherectomy and stenting with DEVORA ( Promus 2.75 X 20 mm stent) in mid [...] are mildly dilated. PAP=28 mmHg Diverticulitis 09/20/2014 ED (erectile dysfunction) (+)baseline ED prior to non-nerve sparing prostatectomy. Prostate cancer (HCC) 07/14/2006 Non-Nerve Sparing RRP -- 09/03/2006; Dr. Harris pT3b N0 Mx, [place] 4+3=7 w/ Tertiary 5, (+)margins. Biochemical recurrence s/p Salvage XRT, completed May 2007. Post-Salvage XRT PSA; initially undetectable, but started to increase in 2012. Bone scan (09/27/2015): Scattered osseous metastatic disease. Initiate ADT, first Lupron injection 10/15/2015. ROS A 14 point review of systems was performed and was found unremarkable except for HPI General: negative/normal. Eyes: negative/normal. Ears/Nose/Throat: negative/normal. Cardiovascular: negative/normal. Respiratory: negative/normal. Gastrointestinal: negative/normal. Genitourinary: negative/normal. Musculoskeletal: negative/normal. Skin: negative/normal. Neurologic: negative/normal. Psychiatric: negative/normal. Endocrine: negative/normal. Heme/Lymphatic: negative/normal. Physical Exam General Appearance: moderately overweight, no distress Skin: warm, no ulcers or xanthomas; few ecchymoses Eyes: conjunctivae and lids normal, pupils are equal and round Neck Veins: normal JVP , neck veins are not distended Thyroid: no nodules, masses, tenderness or enlargement Cardiovascular system: Pulse 76/min, regular rhythm , normal volume, no specific character, felt equally in all peripheries and there was no radio femoral delay. PMI undisplaced, no palpable thrills/heaves, S1 S2 heard, no murmurs, no rub, no jugular venous distension, no carotid bruit. Peripheral Circulation: normal peripheral circulation Pedal Pulses: normal symmetric pedal pulses Carotid Arteries: normal carotid upstroke bilaterally, no bruits Respiratory system: No acute distress No use of accessory muscles Normal vesicular breath sounds over all the lung lu bilaterally No added sounds Abdominal Exam: mildly protuberant but soft, non-tender, no masses, bowel sounds normal, no organomegaly Gait & Station: walks without assistance Muscle Strength: normal muscle tone Neurologic Exam: alert and oriented x 3, neurological assessment grossly intact Extremities: Trace nonpitting pedal edema is noted on bilateral lower extremities. No clubbing and cyanosis noted. Cardiovascular Studies 03/18/17 - 2-D + DOPPLER ECHOCARDIOGRAM Normal left ventricular systolic function, estimated ejection fraction is 65% . Grade I (mild) left ventricular diastolic dysfunction. Right Ventricle: normal size and ejection fraction. Trace mitral and tricuspid valve regurgitation. The sinuses of Valsalva are mildly dilated. Estimated Peak Systolic PA Pressure=28 mmHg Problems Addressed Today Encounter Diagnoses Name Primary? Coronary artery disease involving [place] coronary artery of [place] heart without angina pectoris Yes Non-ST elevated myocardial infarction (HCC) Essential hypertension Hyperlipidemia, unspecified hyperlipidemia type Assessment and Plan: 1. CAD/HFpEF: Pt is s/p NSTEMI after having his colectomy and s/p LHC showing 90 % mid LAD lesion, s/p DEVORA to mid LAD on 10/05/14. Had moderate disease in both RCA and circumflex. Continue current management with aspirin 81 mg daily, Coreg 6.25 mg twice dailyand statin. He will not need any cardiac investigation at this point as he is asymptomatic. 2. HFPEF/NYHA I-II/Stage C/EF:60%: His most recent echocardiogram in March 2017 showed preserved ejection fraction with mild diastolic dysfunction. He is currently euvolemic. We will continue his current dose of Coreg 6.25 mg daily and lisinopril 20 mg daily. 3. HTN:His blood pressure has been well controlled. He does have trace lower extremity edema which appears to be nonpitting. Patient states that his edema has not significantly changed over the last few years. At this point of time we will continue his current dose of Coreg 6.25 mg twice daily, Norvasc 2.5 mg daily and lisinopril 20 mg daily. In the future if his lower extremity edema worsens we will discontinue his Norvasc and increase his lisinopril to 30 mg. 4. HLD:Continue current dose of Lipitor. 5. DVTs: His INR levels have been within the therapeutic range with Coumadin. We would recommend him an INR range of 2-2.5, which will help prevent hematuria. 6. Obesity: Advised him to continue with calorie control for further weight loss. It was a pleasure taking care of Mr. Brown. Please feel free to contact us if you have any questions. Pt seen, examined and discussed with Dr. Velez. RTC in12 months. STEVE Kimble. Sleeping Car Conductor [phone] ATTESTATION I personally performed the aguiar portions of the E/M visit, examined the patient and reviewed all relevant information in chart, including the EKG and other test results. I discussed the case with Dr. Macdonald, returned goods inspector, and concur with the findings and documentation of history, physical exam, assessment, and the overall management plans unless otherwise noted. I have made additions and corrections to the entry as needed. Physician: Darrell Velez M.D. Date: 07/06/17 Current Medications (including today's revisions) amLODIPine (NORVASC) 2.5 mg tablet TAKE ONE TABLET BY MOUTH ONCE DAILY aspirin 81 mg chewable tablet Take 1 Tab by mouth daily. atorvastatin (LIPITOR) 20 mg tablet Take 1 tablet by mouth daily. calcium carb and citrate-vit D3 (CITRACAL + D SLOW RELEASE) 600 mg calcium- 500 unit ER tablet Take 1 tablet by mouth twice daily. carvedilol (COREG) 6.25 mg tablet TAKE ONE TABLET BY MOUTH TWICE DAILY WITH MEALS docusate (COLACE) 100 mg capsule Take 100 mg by mouth as Needed for Constipation. FERROUS SULFATE (IRON PO) Take 1 tablet by mouth as Needed. leuprolide 3 month (LUPRON DEPOT) 11.25 mg/1.5 mL injection Inject 11.25 mg into the muscle every 90 days. lisinopril (PRINIVIL; ZESTRIL) 20 mg tablet Take 20 mg by mouth daily. LOPERAMIDE HCL (IMODIUM PO) Take 1 tablet by mouth as Needed. VIT C/E/ZN/COPPR/LUTEIN/ZEAXAN (PRESERVISION AREDS 2 PO) Take 2 Caps by mouth daily. vitamins, multiple cap Take 1 Cap by mouth daily. Centrum Silver for Men warfarin (COUMADIN) 5 mg tablet Take 5 mg by mouth every other day as needed (Thursday and ). warfarin (COUMADIN) 7.5 mg tablet Take 7.5 mg by mouth every other day as needed (Thursday, Thursday, , Thursday and Thursday). in this encounter Plan of Treatment Not on fileas of this encounter Visit Diagnoses Diagnosis Coronary artery disease involving [place] coronary artery of [place] heart without angina pectoris - Primary Non-ST elevated myocardial infarction (HCC) Essential hypertension Unspecified essential hypertension Hyperlipidemia, unspecified hyperlipidemia type
--- OUTSIDE RECORDS SUMMARY | 2017-09-21 12:10 | XMS REPORT | Encounter Summary ---
Author Author [facility] Organization [facility] Address Unknown Phone Unavailable Care Team Providers Care Pipe Assembly Worker Name Role Phone Maldonado Melo PA-C Unavailable Joo Harris MD Unavailable Brijesh West RN Unavailable Unavailable Pamela Gallardo MD PCP Reason for Visit * Reason Comments Appointment Request Encounter Details Date Type Department Care Team Description 08/04/2017 Telephone [facility] Maldonado Melo PA-C Appointment Request [facility] Exam [address] [facility] [address] [place] [address] [place] [address] [phone] Social History Tobacco Use Types Packs/Day Years Used Date Former Smoker Cigars, Cigarettes Quit: 09/04/2014 Smokeless Tobacco: Never Used Comments: 2-5 cigars/ day. Alcohol Use Drinks/Week oz/Week Comments Yes 0.0 Sex Assigned at Date Recorded Not on file as of this encounter Miscellaneous Notes * Telephone Encounter - Raiza Juarez - 08/04/2017 1:43 PM CDT ----- Message from Maldonado Melo PA-C sent at 08/03/2017 11:40 AM CDT ----- Regarding: Needs Lupron inj appt Mr Brown needs a Lupron injection appt --> AIRAM. Laz Trejo Per orders above, treatment scheduled on 09/08. Patient verbalized understanding of appointment date and time. in this encounter Plan of Treatment Not on fileas of this encounter Visit Diagnoses Not on filein this encounter
--- OUTSIDE RECORDS SUMMARY | 2017-09-21 12:10 | XMS REPORT | Encounter Summary ---
Author Author [facility] Organization [facility] Address Unknown Phone Unavailable Care Team Providers Care Chip Silo Tender Name Role Phone Maldonado Melo PA-C Unavailable Joo Harris MD Unavailable Brijesh West RN Unavailable Unavailable Pamela Gallardo MD PCP Reason for Visit * Reason Comments Prostate Cancer Encounter Details Date Type Department Care Team Description 07/28/2017 Office Visit [facility] Joo Harris MD Prostate cancer Physicians - Urology [address] metastatic to bone (HCC) [address] (Primary Dx); [address] [place] [address] Androgen deprivation OFFICE BLDG [phone] therapy; [place], [place] Osteopenia of multiple [id number] sites [phone] Social History Tobacco Use Types Packs/Day Years Used Date Former Smoker Cigars, Cigarettes Quit: 09/04/2014 Smokeless Tobacco: Never Used Comments: 2-5 cigars/ day. Alcohol Use Drinks/Week oz/Week Comments Yes 0.0 Sex Assigned at Date Recorded Not on file as of this encounter Last Filed Vital Signs Vital Sign Reading Time Taken Blood Pressure 149/76 07/28/2017 11:02 AM CDT Pulse 79 07/28/2017 11:02 AM CDT Temperature - - Respiratory Rate - - Oxygen Saturation - - Inhaled Oxygen - - Concentration Weight 90.9 kg (200 lb 6.4 oz) 07/28/2017 11:02 AM CDT Height 162.6 cm (5' 4") 07/28/2017 11:02 AM CDT Body Mass Index 34.4 07/28/2017 11:02 AM CDT in this encounter Progress Notes * Joo Harris MD - 07/28/2017 11:15 AM CDT Formatting of this note may be different from the original. Date of Service: 07/28/2017 Subjective: Darrell Brown is a 86 y.o. male. Chief Complaint Patient presents with Prostate Cancer History of Present Illness Very pleasant w/ prostate cancer s/p non-nerve sparing Radical retropubic prostatectomy (RRP) on 09/03/2006. (+)BCR s/p salvage XRT, completed May 2007. Post-salvage XRT PSA was undetectable until May 2012. PSA slowly increasing since that time. PSA hx reviewed in chart. Bone scan (09/27/2015): Scattered osseous metastatic disease. CT A/P (09/27/2015): 1. Prior prostatectomy and pelvic lymph node dissection without recurrent pelvic mass or lymphadenopathy. 2. 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 Initiate ADT, first Lupron injection 10/15/2015. (+)hot flashes, but not bothersome. Continues to get his Lupron injection at the [facility]. Last Lupron given on 05/19/2017. Denies appetite loss, wt loss, or bone pain. (+)fatigued. Denies chest pain or [employer]. (+)h/o severe osteopenia. Currently managed w/ Calcium + Vit D supplements. States his local oncologist is remains concerned about his borderline elevated hypercalcemia. (+)HIREN, (+)frequency, urgency. (+)interval gross hematuria presumably d/t elevated INR. Prior hematuria w/u (Mar 2016) --> Negative. HPI reviewed on 07/28/2017 & unchanged since last visit. Review of Systems Constitutional: Positive for fatigue. Negative for activity change, appetite change, chills, diaphoresis, fever and unexpected weight change. HENT: Positive for hearing loss. Negative for congestion, mouth sores and sinus pressure. Eyes: Negative for visual disturbance. Respiratory: Negative for apnea, cough, chest tightness and shortness of breath. Cardiovascular: Negative for chest pain, palpitations and leg swelling. Gastrointestinal: Negative for abdominal pain, blood in stool, constipation, diarrhea, nausea, rectal pain and vomiting. Genitourinary: Positive for frequency. Negative for decreased urine volume, difficulty urinating, discharge, dysuria, enuresis, flank pain, genital sores, hematuria, penile pain, penile swelling, scrotal swelling, testicular pain and urgency. Musculoskeletal: Negative for arthralgias, back pain, gait problem and myalgias. Skin: Negative for rash and wound. Neurological: Negative for dizziness, tremors, seizures, syncope, weakness, light-headedness, numbness and headaches. Hematological: Negative for adenopathy. Does not bruise/bleed easily. Psychiatric/Behavioral: Negative for decreased concentration and dysphoric mood. The patient is not nervous/anxious. Objective: amLODIPine (NORVASC) 2.5 mg tablet TAKE ONE TABLET BY MOUTH ONCE DAILY aspirin 81 mg chewable tablet Take 1 Tab by mouth daily. atorvastatin (LIPITOR) 20 mg tablet Take 1 tablet by mouth daily. calcium carb and citrate-vit D3 (CITRACAL + D SLOW RELEASE) 600 mg calcium- 500 unit ER tablet Take 1 tablet by mouth twice daily. carboxymethyl/glycerin/poly80 (REFRESH OPTIVE ADVANCED OP) Place into or around eye(s) as Needed. carvedilol (COREG) 6.25 mg tablet TAKE ONE [...] Take 1 tablet by mouth as Needed. pseudoephedrine (SUDAFED) 30 mg tablet Take 60 mg by mouth every 4 hours as needed for Congestion. VIT C/E/ZN/COPPR/LUTEIN/ZEAXAN (PRESERVISION AREDS 2 PO) Take 2 Caps by mouth daily. vitamins, multiple cap Take 1 Cap by mouth daily. Centrum Silver for Men warfarin (COUMADIN) 5 mg tablet Take 5 mg by mouth every Thursday. warfarin (COUMADIN) 7.5 mg tablet Take 7.5 mg by mouth every other day as needed (Thursday, Thursday, Thursday, , Thursday, Thursday). Vitals: 07/28/17 1102 BP: 149/76 Pulse: 79 Weight: 90.9 kg (200 lb 6.4 oz) Height: 162.6 cm (64") Body mass index is 34.4 kg/m. Physical Exam Constitutional: He is oriented to [...] reviewed. Lab Results Component Value Date PSA 0.07 07/27/2017 Assessment and Plan: Problem Prostate Cancer Metastatic [...] osteopenia, greatest within the bilateral femoral necks. Erectile Dysfunction Following Radical Prostatectomy (+)baseline ED prior to non-nerve sparing prostatectomy. Prostate cancer metastatic to bone (HCC) PSA reviewed --> remains low & stable. Continue Lupron injections & PSA q 4 mo. RTC 8 mo w/ Dr. Gorman, w/ repeat PSA. Osteopenia Continue Ca + Vit D BID w/ meals. If Oncologist feels that Zometa/ Xgeva may be indicated, do not see urologic contraindication at this time. -- pt is not interested in starting IV meds at this time. Consider repeat DEXA ~ Nov 2018. Orders Placed This Encounter PROSTATIC SPECIFIC ANTIGEN-PSA PROSTATIC SPECIFIC ANTIGEN-PSA Laz Melo PA-C Urology 100% of today's 21 min appt spent in direct [id number] consultation & coordination of care. ATTESTATION I personally interviewed and examined the patient. I have reviewed the history , physical, impression and plan outlined by the Physician Professional Caster. The patient presents with (HPI) met CaP, On examination there is a very low PSA responding to ADT, My impression is responding well to ADT but he refuses to go on a bisphosphonate. , My plan is RTC in [address] Gorman. Staff name: Joo Harris MD Date: 07/28/2017 in this encounter Miscellaneous Notes * Assessment & Plan Note - Maldonado Melo PA-C - 07/28/2017 12:01 PM CDT Associated Problem(s): Osteopenia Continue Ca + Vit D BID w/ meals. If Oncologist feels that Zometa/ Xgeva may be indicated, do not see urologic contraindication at this time. -- pt is not interested in starting IV meds at this time. Consider repeat DEXA ~ Nov 2018. * Assessment & Plan Note - Maldonado Melo PA-C - 07/28/2017 11:59 AM CDT Associated Problem(s): Prostate cancer metastatic to bone (HCC) PSA reviewed --> remains low & stable. Continue Lupron injections & PSA q 4 mo. RTC 8 mo w/ minor [place]/ repeat PSA. in this encounter Plan of Treatment Name Priority Associated Diagnoses Order Schedule PROSTATIC SPECIFIC ANTIGEN-PSA Routine Prostate cancer Expected: 2017 metastatic to bone (HCC) (Approximate), Expires: Androgen deprivation 07/29/2018 therapy PROSTATIC SPECIFIC ANTIGEN-PSA Routine Prostate cancer Expected: 2017 metastatic to bone (HCC) (Approximate), Expires: Androgen deprivation 07/28/2018 therapy as of this encounter Visit Diagnoses Diagnosis Prostate cancer metastatic to bone (HCC) - Primary Androgen deprivation therapy Encounter for therapeutic drug monitoring Osteopenia of multiple sites
--- OUTSIDE RECORDS SUMMARY | 2017-09-21 12:10 | XMS REPORT | Encounter Summary ---
Author Author [facility] Organization [facility] Address Unknown Phone Unavailable Care Team Providers Care Quick Mixer Operator Name Role Phone Maldonado Melo PA-C Unavailable Joo Harris MD Unavailable Brijesh West RN Unavailable Unavailable Pamela Gallardo MD PCP Encounter Details Date Type Department Care Team Description 07/27/2017 Hospital [facility] Joo Harris MD Malignant neoplasm of Encounter [address] prostate ([place]) [place] [address] [address] [place] [address] [phone] Social History Tobacco Use Types Packs/Day Years [...] 600 mg calcium- 500 unit ER tablet carvedilol (COREG) 6.25 TAKE ONE TABLET BY [...] 1 tablet by mouth as PO) Needed. VIT Take 2 Caps by mouth C/E/ZN/COPPR/LUTEIN/ZEAXA daily. N (PRESERVISION AREDS 2 PO) vitamins, multiple cap Take 1 Cap by mouth daily. Centrum Silver for Men warfarin (COUMADIN) 5 mg Take 5 mg by mouth every tablet Thursday. warfarin (COUMADIN) 7.5 Take 7.5 mg by mouth mg tablet every other day as needed (Thursday, Thursday, Thursday, , Thursday, Thursday). as of this encounter Plan of Treatment Not on fileas of this encounter Results * PROSTATIC SPECIFIC ANTIGEN-PSA (07/27/2017 12:18 PM) Component Value Ref Range Prostatic Specific 0.07 <6.01 NG/ML Antigen Comment: REFERENCE RANGES AGEPSA VALUE <50<=1.5 50-54 <=2.0 55-59 <=3.0 60-69 <=4.0 70+<=6.0 NOTE NEW REFERENCE RANGES Specimen Performing Laboratory Blood [facility] [address] [place] [address] in this encounter Visit Diagnoses Diagnosis Prostate cancer metastatic to bone (HCC) Admitting Diagnoses Diagnosis Malignant neoplasm of prostate (HCC) Malignant neoplasm of prostate Secondary malignant neoplasm of bone (HCC) Secondary malignant neoplasm of bone
--- OUTSIDE RECORDS SUMMARY | 2017-09-21 12:10 | XMS REPORT | Encounter Summary ---
Author Author [facility] Organization [facility] Address Unknown Phone Unavailable Care Team Providers Care Stave Jointer Name Role Phone Maldonado Melo PA-C Unavailable Joo Harris MD Unavailable Brijesh West RN Unavailable Unavailable Pamela Gallardo MD PCP Encounter Details Date Type Department Care Team Description 07/29/2017 Orders Only [facility] Joo Harris MD Prostate cancer [facility] Exam [address] metastatic to bone (HCC) [address] [facility] [address] (Primary Dx) [place] [address] [place] [address] [phone] Social History Tobacco Use Types Packs/Day Years Used Date Former Smoker Cigars, Cigarettes Quit: 09/04/2014 Smokeless Tobacco: Never Used Comments: 2-5 cigars/ day. Alcohol Use Drinks/Week oz/Week Comments Yes 0.0 Sex Assigned at Date Recorded Not on file as of this encounter Plan of Treatment Not on fileas of this encounter Visit Diagnoses Diagnosis Prostate cancer metastatic to bone (HCC) - Primary
--- OUTSIDE RECORDS SUMMARY | 2017-09-21 12:12 | XMS REPORT | CCD ---
Author Author [facility]ela [facility]ardo Organization [facility] Address [address] [place] [address] Phone Care Team Providers Care Mobile Equipment Servicer Name Role Phone PP Unavailable CCM Unavailable Summary Purpose Interface Exchange Insurance Providers Payer name Policy type / Coverage type Covered libertarian ID Effective Begin Date Effective End Date WPS Medicare Part B Medicare Part B [id number] Unknown [facility] Medicare Part B [id number] Unknown Family history Father Diagnosis Age At Onset Cancer Unknown Mother Diagnosis Age At Onset Diabetes mellitus Type 2 Unknown Sister Diagnosis Age At Onset Diabetes mellitus Type 2 Unknown Brother Diagnosis Age At Onset Diabetes mellitus Type 2 Unknown Social History Social History Element Codes Description Effective Dates Marital status Unknown Collen 09/10/2016 Number of children Unknown 3 2 children and 1 step-son 11/21/2015 Employment Unknown Retired 11/21/[address]: 5778304 Former smoker Quit September 2014 11/21/[address]: 650645 Currently drinks alcohol 11/21/2015 Has the patient ever used illegal drugs? 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 ICD-9: V58.61 ICD-10: Z79.01 Active 06/16/2016 Unknown Gross hematuria ICD-9 : 599.71 ICD-10: R31.0 Active 07/08/2016 Unknown Hematuria, unspecified ICD-9: 599.70 ICD-10: R31.9 Active 03/12/2016 Unknown Encounter for immunization ICD-9: V04.81 ICD-10: Z23 Active 01/02/2016 Unknown Impacted cerumen, bilateral ICD-9: 380.4 ICD-10: H61.23 Active 11/20/2015 Unknown Problems Condition Codes Effective Dates Condition Status Essential (primary) hypertension ICD-9: 401.1 ICD-10: I10 01/30/2016 Active 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 11/07/2016 Active Mixed hyperlipidemia ICD-9: 272.2 ICD-10: E78.2 01/30/2016 Active Unsteadiness on feet ICD-9: 781.2 ICD-10: R26.81 03/16/2017 Active 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 ICD-9: V58.61 ICD-10: Z79.01 06/16/2016 Active Gross hematuria ICD-9 : 599.71 ICD-10: R31.0 07/08/2016 Active Hematuria, unspecified ICD-9: 599.70 ICD-10: R31.9 03/12/2016 Active Encounter for immunization ICD-9: V04.81 ICD-10: Z23 01/02/2016 Active Impacted cerumen, bilateral ICD-9: 380.4 ICD-10: H61.23 11/20/2015 Active Medications Medication Codes Instructions Start Date Stop Date Status Fill Instructions warfarin 5 mg tablet RxNorm: 730192 1 Tablet(s) PO UD on Thursday and - goal for INR is 2.3 02/11/2017 10/08/2017 Active lisinopril 20 mg tablet RxNorm: 779476 1 Tablet(s) PO daily 06/26/2017 Active warfarin 7.5 mg tablet RxNorm: 655159 1 Tablet(s) PO daily except 10/14/2016 10/08/2017 Active warfarin 5 mg tablet RxNorm: 246252 1 Tablet(s) PO UD on Thursday and - goal for INR is 2.3 10/14/2016 02/10/2017 Inactive warfarin 5 mg tablet RxNorm: 872534 1 Tablet(s) PO UD on Thursday10/14/2016 10/13/2016 Inactive warfarin 7.5 mg tablet RxNorm: 261020 1 Tablet(s) PO daily 10/13/2016 Inactive warfarin 7.5 mg tablet RxNorm: 386386 1 Tablet(s) PO daily 03/201708/17/2016 Inactive Norvasc 5 mg tablet RxNorm: 778020 1 Tablet(s) PO QPM 201512/14/2016 Inactive aspirin 81 mg chewable tablet RxNorm: 349933 1 Tablet(s) PO daily No Start Date Active amlodipine 2.5 mg tablet RxNorm: 438177 1 Tablet(s) PO daily No Start Date Active PreserVision AREDS 2 oral RxNorm: 8889412 oral No Start Date Active Citracal + D3 (calcium phosphate) oral RxNorm: 8983310 oral No Start Date Active Centrum Silver tablet RxNorm: 1 Tablet(s) PO daily No Start Date Active Colace 100 mg capsule RxNorm: 8361949 1-2 Capsule(s) PO as needed constipation No Start Date Active Imodium A-D 2 mg tablet RxNorm: 025552 1 Tablet(s) PO as needed diarrhea No Start Date Active atorvastatin 20 mg tablet RxNorm: 812219 1 Tablet(s) PO daily No Start Date Active carvedilol 6.25 mg tablet RxNorm: 156327 1 Tablet(s) PO BID No Start Date Active Lupron Depot intramuscular RxNorm: 905615 intramuscular No Start Date Active warfarin 5 mg tablet RxNorm: 466270 1 Tablet(s) PO every other day No Start Date 10/13/2016 Inactive warfarin 7.5 mg tablet RxNorm: 960504 1 Tablet(s) PO every other day No Start Date 07/15/2016 Inactive lisinopril 20 mg tablet RxNorm: 527620 1 Tablet(s) PO daily No Start Date 12/28/2016 Inactive clopidogrel 75 mg tablet RxNorm: 750814 1 Tablet(s) PO daily No Start Date 03/10/2016 Inactive Medication Administered No Medication Administered data Immunizations Vaccine Codes Date Status Influenza CVX: 141 01/03/2016 completed Assessments Condition Codes Effective Dates Unsteadiness on feet ICD-10: R26.81 ICD-9: 781.2 03/16/2017 Iron deficiency anemia secondary to blood loss (chronic) ICD -10: D50.0 ICD-9: 280.0 03/16/2017 Mixed hyperlipidemia ICD-10: E78.2 ICD-9: 272.2 03/16/2017 Essential (primary) hypertension ICD-10: I10 ICD-9: 401.1 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 ICD-10: Z79.01 ICD-9: V58.61 12/15/2016 Gross hematuria ICD-10: R31.0 ICD-9: 599.71 11/07/2016 Hematuria, unspecified ICD-10: R31.9 ICD-9: 599.70 03/13/2016 Encounter for immunization ICD-10: Z23 ICD-9: V04.81 01/03/2016 Impacted cerumen, bilateral ICD-10: H61.23 ICD-9: 380.4 11/21/2015 Reason For Visit Reason For Visit Effective Dates Notes hypertension 03/16/2017 hypertension 12/15/2016 anemia 11/07/2016 hypertension 10/14/2016 hypertension 09/10/2016 hematuria 07/08/2016 hypertension 06/16/2016 hypertension 01/31/2016 hypertension 01/03/2016 hypertension 11/21/2015 Results Observation Observation Code Item Item Code Result Date Pt [id number] PT 18.6 seconds 04/27/2017 Pt Azo7497 INR 1.6 04/27/2017 Pt Gxy6126 Low Intensity - 1.5-2.0 04/27/2017 Pt Yvy5361 Mod intensity - 2.0-3.0 04/27/2017 Pt Fgo1071 Hi intensity - 3.0-4.0 04/27/2017 Pt Vyb6499 PT 26.1 seconds 04/13/2017 Pt Olx0190 INR 2.4 04/13/2017 Pt Nqn4175 Low Intensity - 1.5-2.0 04/13/2017 Pt Ojp9223 Mod intensity - 2.0-3.0 04/13/2017 Pt Xif3988 Hi intensity - 3.0-4.0 04/13/2017 Lipid Ord30 CHOL 115 mg/dL 03/17/2017 Lipid Ord30 HDL 54.0 mg/dl 03/17/2017 Lipid Ord30 TRIG 94 mg/dL 03/17/2017 Lipid Ord30 LDL 42 mg/dL 03/17/2017 Lipid Ord30 C/HDL 2.1 Ratio 03/17/2017 Comp Metabolic Xzj904 NA 140 mEq/L 03/17/2017 Comp Metabolic Ffy750 K 4.4 mEq/L 03/17/2017 Comp Metabolic Fsi163 CL 104 mEq/L 03/17/2017 Comp Metabolic Kyr708 CO2 30.0 mEq/L 03/17/2017 Comp Metabolic Qbq641 ANION GAP 10 03/17/2017 Comp Metabolic Krq804 GLUCOSE 122 mg/dL 03/17/2017 Comp Metabolic Vkw281 Creat 0.9 mg/dL 03/17/2017 Comp Metabolic Fsc822 eGFR 82 ml/min/1.73m2 03/17/2017 Comp Metabolic Smh397 BUN 22 mg/dL 03/17/2017 Comp Metabolic Ugd773 B/C Ratio 23.7 Ratio 03/17/2017 Comp Metabolic Vzk905 CALCIUM 10.3 mg/dL 03/17/2017 Comp Metabolic Fat566 ALK PHOS 62 U/L 03/17/2017 Comp Metabolic Gbn772 AST(SGOT) 19 U/L 03/17/2017 Comp Metabolic Ctf369 ALT(SGPT) 21 U/L 03/17/2017 Comp Metabolic Jkh891 BILI T 0.5 mg/dL 03/17/2017 Comp Metabolic Pxm634 ALBUMIN 4.1 g/dL 03/17/2017 Comp Metabolic Aka574 TPRO 6.9 g/dL 03/17/2017 Comp Metabolic Guy218 GLOB 2.8 g/dL 03/17/2017 Comp Metabolic Aic657 A/G Ratio 1.5 Ratio 03/17/2017 Comp Metabolic Vyr253 Osmo 284 mOsmo 03/17/2017 Comp Metabolic Nos711 NA 140 mEq/L 03/17/2017 Comp Metabolic Bgk426 K 4.4 mEq/L 03/17/2017 Comp Metabolic Feq585 CL 104 mEq/L 03/17/2017 Comp Metabolic Lmx573 CO2 30.0 mEq/L 03/17/2017 Comp Metabolic Ssd378 ANION GAP 10 03/17/2017 Comp Metabolic Fdk960 GLUCOSE 122 mg/dL 03/17/2017 Comp Metabolic Nvk450 Creat 0.9 mg/dL 03/17/2017 Comp Metabolic Rtn834 eGFR 82 ml/min/1.73m2 03/17/2017 Comp Metabolic Kdf554 BUN 22 mg/dL 03/17/2017 Comp Metabolic Lvw045 B/C Ratio 23.7 Ratio 03/17/2017 Comp Metabolic Egf753 CALCIUM 10.3 mg/dL 03/17/2017 Comp Metabolic Ckr000 ALK PHOS 62 U/L 03/17/2017 Comp Metabolic Kal589 AST(SGOT) 19 U/L 03/17/2017 Comp Metabolic Ijo701 ALT(SGPT) 21 U/L 03/17/2017 Comp Metabolic Vxc794 BILI T 0.5 mg/dL 03/17/2017 Comp Metabolic Dwr427 ALBUMIN 4.1 g/dL 03/17/2017 Comp Metabolic Odt808 TPRO 6.9 g/dL 03/17/2017 Comp Metabolic Sap243 GLOB 2.8 g/dL 03/17/2017 Comp Metabolic Jgk578 A/G Ratio 1.5 Ratio 03/17/2017 Comp Metabolic Urk822 Osmo 284 mOsmo 03/17/2017 Lipid Ord30 CHOL 115 mg/dL 03/17/2017 Lipid Ord30 HDL 54.0 mg/dl 03/17/2017 Lipid Ord30 TRIG 94 mg/dL 03/17/2017 Lipid Ord30 LDL 42 mg/dL 03/17/2017 Lipid Ord30 C/HDL 2.1 Ratio 03/17/2017 Pt Nqh8752 PT 23.7 seconds 03/12/2017 Pt Cih8835 INR 2.1 03/12/2017 Pt Kav7721 Low Intensity - 1.5-2.0 03/12/2017 Pt Qpl5545 Mod intensity - 2.0-3.0 03/12/2017 Pt Tjq1859 Hi intensity - 3.0-4.0 03/12/2017 Pt Hdu6853 PT 21.3 seconds 02/10/2017 Pt Psk8956 INR 1.9 02/10/2017 Pt Fca0025 Low Intensity - 1.5-2.0 02/10/2017 Pt Cae6312 Mod intensity - 2.0-3.0 02/10/2017 Pt Yoj8421 Hi intensity - 3.0-4.0 02/10/2017 Pt Key9985 PT 21.4 seconds 01/27/2017 Pt Dcj2456 INR 1.9 01/27/2017 Pt Qkq9212 Low Intensity - 1.5-2.0 01/27/2017 Pt Nab7948 Mod intensity - 2.0-3.0 01/27/2017 Pt Trn0956 Hi intensity - 3.0-4.0 01/27/2017 Pt Asz6545 PT 22.0 seconds 01/19/2017 Pt Xgt4772 INR 1.9 01/19/2017 Pt Who0548 Low Intensity - 1.5-2.0 01/19/2017 Pt Fnm1966 Mod intensity - 2.0-3.0 01/19/2017 Pt Qvx6802 Hi intensity - 3.0-4.0 01/19/2017 Pt Wmj3702 PT 28.3 seconds 01/05/2017 Pt Eum8497 INR 2.6 01/05/2017 Pt Hxp0694 Low Intensity - 1.5-2.0 01/05/2017 Pt Sbc7359 Mod intensity - 2.0-3.0 01/05/2017 Pt Yee2015 Hi intensity - 3.0-4.0 01/05/2017 Pt Bez5158 PT 29.1 seconds 12/15/2016 Pt Vdn1227 INR 2.7 12/15/2016 Pt Acs6756 Low Intensity - 1.5-2.0 12/15/2016 Pt Qco5605 Mod intensity - 2.0-3.0 12/15/2016 Pt Uas4856 Hi intensity - 3.0-4.0 12/15/2016 Urine Culture Ucult Preliminary NO Growth Day 1 11/10/2016 Urine Culture Ucult Complete NO Growth Day 2 11/10/2016 Pt Qdm2356 PT 23.7 seconds 11/07/2016 Pt Bkt1067 INR 2.1 11/07/2016 Pt Xkp2961 Low Intensity - 1.5-2.0 11/07/2016 Pt Cob3316 Mod intensity - 2.0-3.0 11/07/2016 Pt Own3399 Hi intensity - 3.0-4.0 11/07/2016 Pt Say5839 PT 27.1 seconds 10/13/2016 Pt Gjt1205 INR 2.7 10/13/2016 Pt Rrh9352 Low Intensity - 1.5-2.0 10/13/2016 Pt Jsc4344 Mod intensity - 2.0-3.0 10/13/2016 Pt Jfi6707 Hi intensity - 3.0-4.0 10/13/2016 Pt Vhs2070 PT 26.3 seconds 09/23/2016 Pt Liq5058 INR 2.6 09/23/2016 Pt Rvl8693 Low Intensity - 1.5-2.0 09/23/2016 Pt Wfb1079 Mod intensity - 2.0-3.0 09/23/2016 Pt Qvm7985 Hi intensity - 3.0-4.0 09/23/2016 Pt Bqc6636 PT 20.4 seconds 09/09/2016 Pt Oqs8169 INR 1.8 09/09/2016 Pt Uwz6145 Low Intensity - 1.5-2.0 09/09/2016 Pt Tng1536 Mod intensity - 2.0-3.0 09/09/2016 Pt Oev5162 Hi intensity - 3.0-4.0 09/09/2016 Pt Eyj9136 PT 24.1 seconds 08/26/2016 Pt Gyz7063 INR 2.3 08/26/2016 Pt Www5941 Low Intensity - 1.5-2.0 08/26/2016 Pt Yrv0073 Mod intensity - 2.0-3.0 08/26/2016 Pt Odw0420 Hi intensity - 3.0-4.0 08/26/2016 Pt Mee1163 PT 26.1 seconds 08/12/2016 Pt Hax6966 INR 2.6 08/12/2016 Pt Imq5681 Low Intensity - 1.5-2.0 08/12/2016 Pt Pha8911 Mod intensity - 2.0-3.0 08/12/2016 Pt Pug6709 Hi intensity - 3.0-4.0 08/12/2016 Pt Bal8545 PT 23.5 seconds 07/15/2016 Pt Iki6225 INR 2.2 07/15/2016 Pt Iix4923 Low Intensity - 1.5-2.0 07/15/2016 Pt Zws1229 Mod intensity - 2.0-3.0 07/15/2016 Pt Owp5975 Hi intensity - 3.0-4.0 07/15/2016 Urine Culture Ucult Preliminary NO Growth Day 1 07/10/2016 Urine Culture Ucult Complete NO Growth Day 2 07/10/2016 Pt Mne3527 PT 27.9 seconds 06/30/2016 Pt Kud7052 INR 2.8 06/30/2016 Pt Mhh3582 Low Intensity - 1.5-2.0 06/30/2016 Pt Cnz2611 Mod intensity - 2.0-3.0 06/30/2016 Pt Tle1233 Hi intensity - 3.0-4.0 06/30/2016 Pt Dfc5392 PT 23.7 seconds 06/12/2016 Pt Gpu2725 INR 2.3 06/12/2016 Pt Kns1950 Low Intensity - 1.5-2.0 06/12/2016 Pt Xey9158 Mod intensity - 2.0-3.0 06/12/2016 Pt Izg8608 Hi intensity - 3.0-4.0 06/12/2016 Pt Zyg0897 PT 36.5 seconds 06/06/2016 Pt Ypl0536 INR 4.0 06/06/2016 Pt Pfb9339 Low Intensity - 1.5-2.0 06/06/2016 Pt Aah7161 Mod intensity - 2.0-3.0 06/06/2016 Pt Tti2519 Hi intensity - 3.0-4.0 06/06/2016 Tibc Ord40 Iron 76 ug/dl 05/05/2016 Tibc Ord40 UIBC 210 ug/dL 05/05/2016 Tibc Ord40 TIBC 286 ug/dL 05/05/2016 Tibc Ord40 Fe-%Sat 26.6 % 05/05/2016 Pt Oxf7001 PT 29.0 seconds 05/05/2016 Pt Hdy9784 INR 2.9 05/05/2016 Pt Yha5253 Low Intensity - 1.5-2.0 05/05/2016 Pt Iag2250 Mod intensity - 2.0-3.0 05/05/2016 Pt Vxs5338 Hi intensity - 3.0-4.0 05/05/2016 Ferritin Ord22 FERRITIN 32.7 ng/mL 05/05/2016 Pt Lzx3633 PT 31.1 seconds 04/08/2016 Pt Ngz6781 INR 3.2 04/08/2016 Pt Ugi8122 Low Intensity - 1.5-2.0 04/08/2016 Pt Gro9280 Mod intensity - 2.0-3.0 04/08/2016 Pt Tts8640 Hi intensity - 3.0-4.0 04/08/2016 Pt Ocn4706 PT 17.3 seconds 03/24/2016 Pt Ufx0406 INR 1.5 03/24/2016 Pt Oaq5844 Low Intensity - 1.5-2.0 03/24/2016 Pt Zxt7314 Mod intensity - 2.0-3.0 03/24/2016 Pt Ncx8061 Hi intensity - 3.0-4.0 03/24/2016 Cbc With Differential Ord2 WBC 6.64 K/ul 03/24/2016 Cbc With Differential Ord2 RBC 3.70 M/ul 03/24/2016 Cbc With Differential Ord2 HGB 12.0 g/dl 03/24/2016 Cbc With Differential Ord2 Neut% 45.5 % 03/24/2016 Cbc With Differential Ord2 HCT 35.4 % 03/24/2016 Cbc With Differential Ord2 MCV 95.7 fl 03/24/2016 Cbc With Differential Ord2 Lymph% 34.5 % 03/24/2016 Cbc With Differential Ord2 MCH 32.4 pg 03/24/2016 Cbc With Differential Ord2 Andrew% 11.3 % 03/24/2016 Cbc With Differential Ord2 MCHC 33.9 pg 03/24/2016 Cbc With Differential Ord2 Eos% 8.1 % 03/24/2016 Cbc With Differential Ord2 PLT 279 K/ul 03/24/2016 Cbc With Differential Ord2 Baso% 0.6 % 03/24/2016 Cbc With Differential Ord2 RDW 14.3 % 03/24/2016 Cbc With Differential Ord2 Neut ABS# 3.02 K/ul 03/24/2016 Cbc With Differential Ord2 Lymph ABS# 2.29 K/ul 03/24/2016 Cbc With Differential Ord2 Andrew ABS# 0.8 K/ul 03/24/2016 Cbc With Differential Ord2 Eos ABS# 0.5 K/ul 03/24/2016 Cbc With Differential Ord2 Baso ABS# 0.0 K/ul 03/24/2016 Pt Hor6077 PT 17.8 seconds 03/12/2016 Pt Jda5135 INR 1.5 03/12/2016 Pt Imx9457 Low Intensity - 1.5-2.0 03/12/2016 Pt Qcg7447 Mod intensity - 2.0-3.0 03/12/2016 Pt Mqy1975 Hi intensity - 3.0-4.0 03/12/2016 Urine Culture Ucult Complete NO Growth Day 2 02/29/2016 Urine Culture Ucult Preliminary NO Growth Day 1 02/29/2016 Lipid Ord30 CHOL 129 mg/dL 02/21/2016 Lipid Ord30 HDL 59.0 mg/dl 02/21/2016 Lipid Ord30 TRIG 90 mg/dL 02/21/2016 Lipid Ord30 LDL 52 mg/dL 02/21/2016 Lipid Ord30 C/HDL 2.2 Ratio 02/21/2016 Comp Metabolic Fvz310 NA 136 mEq/L 02/21/2016 Comp Metabolic Dov725 K 4.4 mEq/L 02/21/2016 Comp Metabolic Hsk994 CL 102 mEq/L 02/21/2016 Comp Metabolic Dgy455 CO2 29.0 mEq/L 02/21/2016 Comp Metabolic Cjb272 ANION GAP 9 02/21/2016 Comp Metabolic Qbe638 GLUCOSE 118 mg/dL 02/21/2016 Comp Metabolic Jen335 Creat 1.0 mg/dL 02/21/2016 Comp Metabolic Rxl248 eGFR 72 ml/min/1.73m2 02/21/2016 Comp Metabolic Cyq096 BUN 23 mg/dL 02/21/2016 Comp Metabolic Daq405 B/C Ratio 22.1 Ratio 02/21/2016 Comp Metabolic Gse817 CALCIUM 9.9 mg/dL 02/21/2016 Comp Metabolic Vzk983 ALK PHOS 57 U/L 02/21/2016 Comp Metabolic Iqj381 AST(SGOT) 17 U/L 02/21/2016 Comp Metabolic Pom837 ALT(SGPT) 19 U/L 02/21/2016 Comp Metabolic Ksf437 BILI T 0.6 mg/dL 02/21/2016 Comp Metabolic Vqn373 ALBUMIN 3.9 g/dL 02/21/2016 Comp Metabolic Jlm543 TPRO 6.9 g/dL 02/21/2016 Comp Metabolic Sow276 GLOB 3.0 g/dL 02/21/2016 Comp Metabolic Vng753 A/G Ratio 1.3 Ratio 02/21/2016 Comp Metabolic Tlr942 Osmo 277 mOsmo 02/21/2016 Pt Qbl1229 PT 19.8 seconds 02/21/2016 Pt Fgx8039 INR 1.8 02/21/2016 Pt Dir7441 Low Intensity - 1.5-2.0 02/21/2016 Pt Osd1269 Mod intensity - 2.0-3.0 02/21/2016 Pt Qdc8611 Hi intensity - 3.0-4.0 02/21/2016 Pt Zwv9794 PT 24.1 seconds 01/15/2016 Pt Fut1959 INR 2.3 01/15/2016 Pt Pyp0309 Low Intensity - 1.5-2.0 01/15/2016 Pt Mhz1749 Mod intensity - 2.0-3.0 01/15/2016 Pt Obh0445 Hi intensity - 3.0-4.0 01/15/2016 Pt Zta1157 PT 26.5 seconds 01/03/2016 Pt Dsu3326 INR 2.6 01/03/2016 Pt Krp4186 Low Intensity - 1.5-2.0 01/03/2016 Pt Dhw9931 Mod intensity - 2.0-3.0 01/03/2016 Pt Ezb3613 Hi intensity - 3.0-4.0 01/03/2016 Pt Slg5317 PT 15.3 seconds 11/30/2015 Pt Yzt9832 INR 1.3 11/30/2015 Pt Jre8472 Low Intensity - 1.5-2.0 11/30/2015 Pt Csw9893 Mod intensity - 2.0-3.0 11/30/2015 Pt Ypv8536 Hi intensity - 3.0-4.0 11/30/2015 Review of Systems System Result Effective Dates Constitutional No recent illness 2016 Constitutional No chills 03/16/2017 Constitutional fatigue 03/16/2017 Constitutional No fever 03/16/2017 Constitutional No malaise 03/16/2017 Eyes No blindness 03/16/2017 Eyes No vision change 03/16/2017 Ears/Nose/Throat/Neck No dental pain 02/2017 Ears/Nose/Throat/Neck No dizziness 2016 Ears/Nose/Throat/Neck No dysphagia 2016 Ears/Nose/Throat/Neck No headache 2016 Ears/Nose/Throat/Neck No hearing loss 02/2017 Ears/Nose/Throat/Neck No nasal allergies 03/16/2017 Ears/Nose/Throat/Neck No sore throat 02/2017 Ears/Nose/Throat/Neck No postnasal drip 03/16/2017 Ears/Nose/Throat/Neck No sinus congestion 03/16/2017 Cardiovascular No chest pain/pressure 02/2017 Cardiovascular No dyspnea 03/16/2017 Cardiovascular No edema 03/16/2017 Cardiovascular No exercise intolerance Cardiovascular No fatigue 03/16/2017 Cardiovascular hypertension 03/16/2017 Cardiovascular No near-syncope/dizziness 03/16/2017 Respiratory No chest tightness 2016 Respiratory No cough 03/16/2017 Respiratory No dyspnea 03/16/2017 Respiratory No pedal edema 03/16/2017 Gastrointestinal No abdominal pain 2016 Gastrointestinal No constipation 2016 Gastrointestinal No diarrhea 03/16/2017 Gastrointestinal No gastroesophageal reflux 03/16/2017 Gastrointestinal No nausea 03/16/2017 Gastrointestinal No vomiting 03/16/2017 Genitourinary/Nephrology No dysuria 03/16 Genitourinary/Nephrology hematuria 2016 Genitourinary/Nephrology No nocturia 02/2017 Genitourinary/Nephrology No urinary incontinence 03/16/2017 Musculoskeletal No stiffness 03/16/2017 Musculoskeletal No swelling 03/16/2017 Musculoskeletal No muscle weakness 2016 Musculoskeletal No myalgias 03/16/2017 Neurologic No dizziness 03/16/2017 Neurologic No headache 03/16/2017 Neurologic No neck pain 03/16/2017 Neurologic No syncope 03/16/2017 Psychiatric No anxiety 03/16/2017 Psychiatric No depression 03/16/2017 Constitutional No recent illness 2016 Constitutional No chills 12/15/2016 Constitutional fatigue 12/15/2016 Constitutional No fever 12/15/2016 Constitutional No malaise 12/15/2016 Eyes No blindness 12/15/2016 Eyes No vision change 12/15/2016 Ears/Nose/Throat/Neck No dental pain 02/2017 Ears/Nose/Throat/Neck No dizziness 2016 Ears/Nose/Throat/Neck No dysphagia 2016 Ears/Nose/Throat/Neck No headache 2016 Ears/Nose/Throat/Neck No hearing loss 02/2017 Ears/Nose/Throat/Neck No nasal allergies 12/15/2016 Ears/Nose/Throat/Neck No sore throat 02/2017 Ears/Nose/Throat/Neck No postnasal drip 12/15/2016 Ears/Nose/Throat/Neck No sinus congestion 12/15/2016 Cardiovascular No chest pain/pressure 02/2017 Cardiovascular No dyspnea 12/15/2016 Cardiovascular No edema 12/15/2016 Cardiovascular No exercise intolerance Cardiovascular No fatigue 12/15/2016 Cardiovascular hypertension 12/15/2016 Cardiovascular No near-syncope/dizziness 12/15/2016 Respiratory No chest tightness 2016 Respiratory No cough 12/15/2016 Respiratory No dyspnea 12/15/2016 Respiratory No pedal edema 12/15/2016 Gastrointestinal No abdominal pain 2016 Gastrointestinal No constipation 2016 Gastrointestinal No diarrhea 12/15/2016 Gastrointestinal No gastroesophageal reflux 12/15/2016 Gastrointestinal No nausea 12/15/2016 Gastrointestinal No vomiting 12/15/2016 Genitourinary/Nephrology No dysuria 12/15 Genitourinary/Nephrology hematuria 2016 Genitourinary/Nephrology No nocturia 02/2017 Genitourinary/Nephrology No urinary incontinence 12/15/2016 Musculoskeletal No stiffness 12/15/2016 Musculoskeletal No swelling 12/15/2016 Musculoskeletal No muscle weakness 2016 Musculoskeletal No myalgias 12/15/2016 Dermatologic No rash 12/15/2016 Neurologic No dizziness 12/15/2016 Neurologic No headache 12/15/2016 Neurologic No neck pain 12/15/2016 Neurologic No syncope 12/15/2016 Psychiatric No anxiety 12/15/2016 Psychiatric No depression 12/15/2016 Constitutional No recent illness 2016 Constitutional No chills 11/07/2016 Constitutional fatigue 11/07/2016 Constitutional No fever 11/07/2016 Constitutional No malaise 11/07/2016 Eyes No blindness 11/07/2016 Eyes No vision change 11/07/2016 Ears/Nose/Throat/Neck No dental pain 07/2016 Ears/Nose/Throat/Neck No dizziness 2016 Ears/Nose/Throat/Neck No dysphagia 2016 Ears/Nose/Throat/Neck No headache 2016 Ears/Nose/Throat/Neck No hearing loss 07/2016 Ears/Nose/Throat/Neck No nasal allergies 11/07/2016 Ears/Nose/Throat/Neck No sore throat 07/2016 Ears/Nose/Throat/Neck No postnasal drip 11/07/2016 Ears/Nose/Throat/Neck No sinus congestion 11/07/2016 Cardiovascular No chest pain/pressure 07/2016 Cardiovascular No dyspnea 11/07/2016 Cardiovascular No edema 11/07/2016 Cardiovascular No exercise intolerance Cardiovascular No fatigue 11/07/2016 Cardiovascular hypertension 11/07/2016 Cardiovascular No near-syncope/dizziness 11/07/2016 Respiratory No chest tightness 2016 Respiratory No cough 11/07/2016 Respiratory No dyspnea 11/07/2016 Respiratory No pedal edema 11/07/2016 Gastrointestinal No abdominal pain 2016 Gastrointestinal No constipation 2016 Gastrointestinal No diarrhea 11/07/2016 Gastrointestinal No gastroesophageal reflux 11/07/2016 Gastrointestinal No nausea 11/07/2016 Gastrointestinal No vomiting 11/07/2016 Genitourinary/Nephrology No dysuria 11/07 Genitourinary/Nephrology hematuria 2016 Genitourinary/Nephrology No nocturia 07/2016 Genitourinary/Nephrology No urinary incontinence 11/07/2016 Musculoskeletal No stiffness 11/07/2016 Musculoskeletal No swelling 11/07/2016 Musculoskeletal No muscle weakness 2016 Musculoskeletal No myalgias 11/07/2016 Dermatologic No rash 11/07/2016 Neurologic No dizziness 11/07/2016 Neurologic No headache 11/07/2016 Neurologic No neck pain 11/07/2016 Neurologic No syncope 11/07/2016 Psychiatric No anxiety 11/07/2016 Psychiatric No depression 11/07/2016 Constitutional No recent illness 2016 Constitutional No chills 10/14/2016 Constitutional fatigue 10/14/2016 Constitutional No fever 10/14/2016 Constitutional No malaise 10/14/2016 Eyes No blindness 10/14/2016 Eyes No vision change 10/14/2016 Ears/Nose/Throat/Neck No dental pain 02/2017 Ears/Nose/Throat/Neck No dizziness 2016 Ears/Nose/Throat/Neck No dysphagia 2016 Ears/Nose/Throat/Neck No headache 2016 Ears/Nose/Throat/Neck No hearing loss 02/2017 Ears/Nose/Throat/Neck No nasal allergies 10/14/2016 Ears/Nose/Throat/Neck No sore throat 02/2017 Ears/Nose/Throat/Neck No postnasal drip 10/14/2016 Ears/Nose/Throat/Neck No sinus congestion 10/14/2016 Cardiovascular No chest pain/pressure 02/2017 Cardiovascular No dyspnea 10/14/2016 Cardiovascular No edema 10/14/2016 Cardiovascular No exercise intolerance Cardiovascular No fatigue 10/14/2016 Cardiovascular hypertension 10/14/2016 Cardiovascular No near-syncope/dizziness 10/14/2016 Respiratory No chest tightness 2016 Respiratory No cough 10/14/2016 Respiratory No dyspnea 10/14/2016 Respiratory No pedal edema 10/14/2016 Gastrointestinal No abdominal pain 2016 Gastrointestinal No constipation 2016 Gastrointestinal No diarrhea 10/14/2016 Gastrointestinal No gastroesophageal reflux 10/14/2016 Gastrointestinal No nausea 10/14/2016 Gastrointestinal No vomiting 10/14/2016 Genitourinary/Nephrology No dysuria 10/14 Genitourinary/Nephrology hematuria 2016 Genitourinary/Nephrology No nocturia 02/2017 Genitourinary/Nephrology No urinary incontinence 10/14/2016 Musculoskeletal No stiffness 10/14/2016 Musculoskeletal No swelling 10/14/2016 Musculoskeletal No muscle weakness 2016 Musculoskeletal No myalgias 10/14/2016 Dermatologic No rash 10/14/2016 Neurologic No dizziness 10/14/2016 Neurologic No headache 10/14/2016 Neurologic No neck pain 10/14/2016 Neurologic No syncope 10/14/2016 Psychiatric No anxiety 10/14/2016 Psychiatric No depression 10/14/2016 Constitutional No recent illness 2016 Constitutional No chills 09/10/2016 Constitutional fatigue 09/10/2016 Constitutional No fever 09/10/2016 Constitutional No malaise 09/10/2016 Eyes No blindness 09/10/2016 Eyes No vision change 09/10/2016 Ears/Nose/Throat/Neck No dental pain 10/2016 Ears/Nose/Throat/Neck No dizziness 2016 Ears/Nose/Throat/Neck No dysphagia 2016 Ears/Nose/Throat/Neck No headache 2016 Ears/Nose/Throat/Neck No hearing loss 10/2016 Ears/Nose/Throat/Neck No nasal allergies 09/10/2016 Ears/Nose/Throat/Neck No sore throat 10/2016 Ears/Nose/Throat/Neck No postnasal drip 09/10/2016 Ears/Nose/Throat/Neck No sinus congestion 09/10/2016 Cardiovascular No chest pain/pressure 10/2016 Cardiovascular No dyspnea 09/10/2016 Cardiovascular No edema 09/10/2016 Cardiovascular No exercise intolerance Cardiovascular No fatigue 09/10/2016 Cardiovascular hypertension 09/10/2016 Cardiovascular No near-syncope/dizziness 09/10/2016 Respiratory No chest tightness 2016 Respiratory No cough 09/10/2016 Respiratory No dyspnea 09/10/2016 Respiratory No pedal edema 09/10/2016 Gastrointestinal No abdominal pain 2016 Gastrointestinal No constipation 2016 Gastrointestinal No diarrhea 09/10/2016 Gastrointestinal No gastroesophageal reflux 09/10/2016 Gastrointestinal No nausea 09/10/2016 Gastrointestinal No vomiting 09/10/2016 Genitourinary/Nephrology No dysuria 09/10 Genitourinary/Nephrology hematuria 2016 Genitourinary/Nephrology No nocturia 10/2016 Genitourinary/Nephrology No urinary incontinence 09/10/2016 Musculoskeletal No stiffness 09/10/2016 Musculoskeletal No swelling 09/10/2016 Musculoskeletal No muscle weakness 2016 Musculoskeletal No myalgias 09/10/2016 Dermatologic No rash 09/10/2016 Neurologic No dizziness 09/10/2016 Neurologic No headache 09/10/2016 Neurologic No neck pain 09/10/2016 Neurologic No syncope 09/10/2016 Psychiatric No anxiety 09/10/2016 Psychiatric No depression 09/10/2016 Constitutional No recent illness 2016 Constitutional No chills 07/08/2016 Constitutional No fever 07/08/2016 Eyes No eye erythema 07/08/2016 Ears/Nose/Throat/Neck No nasal allergies 07/08/2016 Cardiovascular No chest pain/pressure 07/2016 Cardiovascular No dyspnea 07/08/2016 Respiratory No dyspnea 07/08/2016 Respiratory No cough 07/08/2016 Gastrointestinal No abdominal pain 2016 Gastrointestinal No nausea 07/08/2016 Gastrointestinal No vomiting 07/08/2016 Genitourinary/Nephrology hematuria 2016 Genitourinary/Nephrology No flank pain Genitourinary/Nephrology No dysuria 07/08 Neurologic No alteration of consciousness 07/08/2016 Neurologic No mental status change 2016 Constitutional No recent illness 2016 Constitutional No chills 06/16/2016 Constitutional fatigue 06/16/2016 Constitutional No fever 06/16/2016 Constitutional No malaise 06/16/2016 Eyes No blindness 06/16/2016 Eyes No vision change 06/16/2016 Ears/Nose/Throat/Neck No dental pain Ears/Nose/Throat/Neck No dizziness 2016 Ears/Nose/Throat/Neck No dysphagia 2016 Ears/Nose/Throat/Neck No headache 2016 Ears/Nose/Throat/Neck No hearing loss Ears/Nose/Throat/Neck No nasal allergies 06/16/2016 Ears/Nose/Throat/Neck No sore throat Ears/Nose/Throat/Neck No postnasal drip 06/16/2016 Ears/Nose/Throat/Neck No sinus congestion 06/16/2016 Cardiovascular No chest pain/pressure Cardiovascular No dyspnea 06/16/2016 Cardiovascular No edema 06/16/2016 Cardiovascular No exercise intolerance Cardiovascular No fatigue 06/16/2016 Cardiovascular hypertension 06/16/2016 Cardiovascular No near-syncope/dizziness 06/16/2016 Respiratory No chest tightness 2016 Respiratory No cough 06/16/2016 Respiratory No dyspnea 06/16/2016 Respiratory No pedal edema 06/16/2016 Gastrointestinal No abdominal pain 2016 Gastrointestinal No constipation 2016 Gastrointestinal No diarrhea 06/16/2016 Gastrointestinal No gastroesophageal reflux 06/16/2016 Gastrointestinal No nausea 06/16/2016 Gastrointestinal No vomiting 06/16/2016 Genitourinary/Nephrology No dysuria 06/16 Genitourinary/Nephrology hematuria 2016 Genitourinary/Nephrology No nocturia Genitourinary/Nephrology No urinary incontinence 06/16/2016 Musculoskeletal No stiffness 06/16/2016 Musculoskeletal No swelling 06/16/2016 Musculoskeletal No muscle weakness 2016 Musculoskeletal No myalgias 06/16/2016 Dermatologic No rash 06/16/2016 Neurologic No dizziness 06/16/2016 Neurologic No headache 06/16/2016 Neurologic No neck pain 06/16/2016 Neurologic No syncope 06/16/2016 Psychiatric No anxiety 06/16/2016 Psychiatric No depression 06/16/2016 Constitutional No recent illness 2015 Constitutional No chills 01/31/2016 Constitutional fatigue 01/31/2016 Constitutional No fever 01/31/2016 Constitutional insomnia 01/31/2016 Constitutional No malaise 01/31/2016 Eyes No blindness 01/31/2016 Eyes No vision change 01/31/2016 Ears/Nose/Throat/Neck No dental pain Ears/Nose/Throat/Neck No dizziness 2015 Ears/Nose/Throat/Neck No dysphagia 2015 Ears/Nose/Throat/Neck No headache 2015 Ears/Nose/Throat/Neck No hearing loss Ears/Nose/Throat/Neck No nasal allergies 01/31/2016 Ears/Nose/Throat/Neck No sore throat Ears/Nose/Throat/Neck No postnasal drip 01/31/2016 Ears/Nose/Throat/Neck No sinus congestion 01/31/2016 Cardiovascular No chest pain/pressure Cardiovascular No dyspnea 01/31/2016 Cardiovascular No edema 01/31/2016 Cardiovascular No exercise intolerance Cardiovascular No fatigue 01/31/2016 Cardiovascular hypertension 01/31/2016 Cardiovascular No near-syncope/dizziness 01/31/2016 Respiratory No chest tightness 2015 Respiratory No cough 01/31/2016 Respiratory No dyspnea 01/31/2016 Respiratory No pedal edema 01/31/2016 Gastrointestinal No abdominal pain 2015 Gastrointestinal No constipation 2015 Gastrointestinal No diarrhea 01/31/2016 Gastrointestinal No gastroesophageal reflux 01/31/2016 Gastrointestinal No nausea 01/31/2016 Gastrointestinal No vomiting 01/31/2016 Genitourinary/Nephrology No dysuria 01/30 Genitourinary/Nephrology No nocturia Genitourinary/Nephrology No urinary incontinence 01/31/2016 Musculoskeletal No stiffness 01/31/2016 Musculoskeletal No swelling 01/31/2016 Musculoskeletal No muscle weakness 2015 Musculoskeletal No myalgias 01/31/2016 Dermatologic No rash 01/31/2016 Neurologic No dizziness 01/31/2016 Neurologic No headache 01/31/2016 Neurologic No neck pain 01/31/2016 Neurologic No syncope 01/31/2016 Psychiatric No anxiety 01/31/2016 Psychiatric No depression 01/31/2016 Genitourinary/Nephrology hematuria 2015 Constitutional No recent illness 2015 Constitutional No chills 01/03/2016 Constitutional fatigue 01/03/2016 Constitutional No fever 01/03/2016 Constitutional No insomnia 01/03/2016 Constitutional No malaise 01/03/2016 Eyes No blindness 01/03/2016 Eyes No vision change 01/03/2016 Ears/Nose/Throat/Neck No dental pain Ears/Nose/Throat/Neck No dizziness 2015 Ears/Nose/Throat/Neck No dysphagia 2015 Ears/Nose/Throat/Neck No headache 2015 Ears/Nose/Throat/Neck No hearing loss Ears/Nose/Throat/Neck No nasal allergies 01/03/2016 Ears/Nose/Throat/Neck No sore throat Ears/Nose/Throat/Neck No postnasal drip 01/03/2016 Ears/Nose/Throat/Neck No sinus congestion 01/03/2016 Cardiovascular No chest pain/pressure Cardiovascular No dyspnea 01/03/2016 Cardiovascular No edema 01/03/2016 Cardiovascular No exercise intolerance Cardiovascular No fatigue 01/03/2016 Cardiovascular hypertension 01/03/2016 Cardiovascular No near-syncope/dizziness 01/03/2016 Respiratory No chest tightness 2015 Respiratory No cough 01/03/2016 Respiratory No dyspnea 01/03/2016 Respiratory No pedal edema 01/03/2016 Gastrointestinal No abdominal pain 2015 Gastrointestinal No constipation 2015 Gastrointestinal No diarrhea 01/03/2016 Gastrointestinal No gastroesophageal reflux 01/03/2016 Gastrointestinal No nausea 01/03/2016 Gastrointestinal No vomiting 01/03/2016 Genitourinary/Nephrology No dysuria 01/02 Genitourinary/Nephrology No nocturia Genitourinary/Nephrology No urinary incontinence 01/03/2016 Musculoskeletal No stiffness 01/03/2016 Musculoskeletal No swelling 01/03/2016 Musculoskeletal No muscle weakness 2015 Musculoskeletal No myalgias 01/03/2016 Dermatologic No rash 01/03/2016 Dermatologic sores 01/03/2016 Dermatologic No scar 01/03/2016 Neurologic No dizziness 01/03/2016 Neurologic No headache 01/03/2016 Neurologic No neck pain 01/03/2016 Neurologic No syncope 01/03/2016 Psychiatric No anxiety 01/03/2016 Psychiatric No depression 01/03/2016 Constitutional No recent illness 2015 Constitutional No chills 11/21/2015 Constitutional fatigue 11/21/2015 Constitutional No fever 11/21/2015 Constitutional No insomnia 11/21/2015 Constitutional No malaise 11/21/2015 Eyes No blindness 11/21/2015 Eyes No vision change 11/21/2015 Ears/Nose/Throat/Neck No dental pain Ears/Nose/Throat/Neck No dizziness 2015 Ears/Nose/Throat/Neck No dysphagia 2015 Ears/Nose/Throat/Neck No headache 2015 Ears/Nose/Throat/Neck No hearing loss Ears/Nose/Throat/Neck No nasal allergies 11/21/2015 Ears/Nose/Throat/Neck No sore throat Ears/Nose/Throat/Neck No postnasal drip 11/21/2015 Ears/Nose/Throat/Neck No sinus congestion 11/21/2015 Cardiovascular No chest pain/pressure Cardiovascular No dyspnea 11/21/2015 Cardiovascular No edema 11/21/2015 Cardiovascular No exercise intolerance Cardiovascular No fatigue 11/21/2015 Cardiovascular No near-syncope/dizziness 11/21/2015 Respiratory No chest tightness 2015 Respiratory No cough 11/21/2015 Respiratory No dyspnea 11/21/2015 Respiratory No pedal edema 11/21/2015 Gastrointestinal No abdominal pain 2015 Gastrointestinal No constipation 2015 Gastrointestinal No diarrhea 11/21/2015 Gastrointestinal No gastroesophageal reflux 11/21/2015 Gastrointestinal No nausea 11/21/2015 Gastrointestinal No vomiting 11/21/2015 Genitourinary/Nephrology No dysuria 11/20 Genitourinary/Nephrology No nocturia Genitourinary/Nephrology No urinary incontinence 11/21/2015 Musculoskeletal No stiffness 11/21/2015 Musculoskeletal No swelling 11/21/2015 Musculoskeletal No muscle weakness 2015 Musculoskeletal No myalgias 11/21/2015 Dermatologic No rash 11/21/2015 Dermatologic No sores 11/21/2015 Dermatologic No scar 11/21/2015 Neurologic No dizziness 11/21/2015 Neurologic No headache 11/21/2015 Neurologic No neck pain 11/21/2015 Neurologic No syncope 11/21/2015 Psychiatric No anxiety 11/21/2015 Psychiatric No depression 11/21/2015 Cardiovascular hypertension 11/21/2015 Hematologic/Lymphatic abnormal ecchymoses 11/21/2015 Physical Exam Exam Name System Name Item Name Status Result Effective Dates Notes Full Exam - General 1994 Constitutional general appearance Development: well developed 03/16/2017 None Full Exam - General 1994 Constitutional general appearance Development: appears stated age 1203/16/2017 None Full Exam - General 1994 Constitutional general appearance Hygiene/Attention to Grooming: good hygiene 03/16/2017 None Full Exam - General 1994 Eyes conjunctiva /eyelids Overall: conjunctiva clear 03/16/2017 None Full Exam - General 1994 Eyes conjunctiva /eyelids Overall: cornea clear 03/16/2017 None Full Exam - General 1994 Eyes conjunctiva /eyelids Overall: eyelids normal 03/16/2017 None Full Exam - General 1994 Eyes pupils and irises Overall: pupils equal, round, reactive to light and accomodation 03/16/2017 None Full Exam - General 1994 Ears/Nose/Throat otoscopic exam External auditory canal: complete cerumen impaction 03/16/2017 None Full Exam - General 1994 Ears/Nose/Throat lips/teeth/gingiva Overall: benign lips 03/16/2017 None Full Exam - General 1994 Ears/Nose/Throat lips/teeth/gingiva Overall: normal dentition 03/16/2017 None Full Exam - General 1994 Ears/Nose/Throat oral cavity/pharynx/larynx Overall: oral mucosa clear 03/16/2017 None Full Exam - General 1994 Ears/Nose/Throat oral cavity/pharynx/larynx Overall: oropharyngeal mucosa clear 03/16/2017 None Full Exam - General 1994 Ears/Nose/Throat oral cavity/pharynx/larynx Overall: hypopharynx benign 03/16/2017 None Full Exam - General 1994 Ears/Nose/Throat oral cavity/pharynx/larynx Overall: no masses 03/16/2017 None Full Exam - General 1994 Respiratory auscultation Overall: breath sounds clear bilaterally 03/16/2017 None Full Exam - General 1994 Respiratory respiratory effort/rhythm Overall: no retractions 03/16/2017 None Full Exam - General 1994 Respiratory respiratory effort/rhythm Overall: normal rate 03/16/2017 None Full Exam - General 1994 Cardiovascular extremities Overall: no clubbing 03/16/2017 None Full Exam - General 1994 Cardiovascular auscultation of heart Overall: regular rate 03/16/2017 None Full Exam - General 1994 Cardiovascular auscultation of heart Overall: normal heart sounds 03/16/2017 None Full Exam - General 1994 Abdomen abdominal exam Overall: no tenderness 03/16/2017 None Full Exam - General 1994 Abdomen abdominal exam Overall: normal bowel sounds 03/16/2017 None Full Exam - General 1994 Musculoskeletal spine, ribs and pelvis Overall: spine benign 03/16/2017 None Full Exam - General 1994 Musculoskeletal spine, ribs and pelvis Overall: sacroiliac joint benign 03/16/2017 None Full Exam - General 1994 Musculoskeletal spine, ribs and pelvis Overall: good posture 03/16/2017 None Full Exam - General 1994 Musculoskeletal head and neck Overall: head atraumatic 03/16/2017 None Full Exam - General 1994 Musculoskeletal head and neck Overall: cervical spine benign 03/16/2017 None Full Exam - General 1994 Neurologic deep tendon reflexes Overall: deep tendon reflexes intact 03/16/2017 None Full Exam - General 1994 Neurologic cranial nerves Overall: crainial nerves 2 - 12 grossly intact 03/16/2017 None Full Exam - General 1994 Psychiatric orientation/consciousness Overall: oriented to person, place and time 03/16/2017 None Full Exam - General 1994 Psychiatric mood and affect Overall: normal mood and affect 03/16/2017 None Full Exam - General 1994 Constitutional general appearance Development: well developed 12/15/2016 None Full Exam - General 1994 Constitutional general appearance Development: appears stated age 0912/15/2016 None Full Exam - General 1994 Constitutional general appearance Hygiene/Attention to Grooming: good hygiene 12/15/2016 None Full Exam - General 1994 Eyes conjunctiva /eyelids Overall: conjunctiva clear 12/15/2016 None Full Exam - General 1994 Eyes conjunctiva /eyelids Overall: cornea clear 12/15/2016 None Full Exam - General 1994 Eyes conjunctiva /eyelids Overall: eyelids normal 12/15/2016 None Full Exam - General 1994 Eyes pupils and irises Overall: pupils equal, round, reactive to light and accomodation 12/15/2016 None Full Exam - General 1994 Ears/Nose/Throat otoscopic exam External auditory canal: complete cerumen impaction 12/15/2016 None Full Exam - General 1994 Ears/Nose/Throat lips/teeth/gingiva Overall: benign lips 12/15/2016 None Full Exam - General 1994 Ears/Nose/Throat lips/teeth/gingiva Overall: normal dentition 12/15/2016 None Full Exam - General 1994 Ears/Nose/Throat oral cavity/pharynx/larynx Overall: oral mucosa clear 12/15/2016 None Full Exam - General 1994 Ears/Nose/Throat oral cavity/pharynx/larynx Overall: oropharyngeal mucosa clear 12/15/2016 None Full Exam - General 1994 Ears/Nose/Throat oral cavity/pharynx/larynx Overall: hypopharynx benign 12/15/2016 None Full Exam - General 1994 Ears/Nose/Throat oral cavity/pharynx/larynx Overall: no masses 12/15/2016 None Full Exam - General 1994 Respiratory auscultation Overall: breath sounds clear bilaterally 12/15/2016 None Full Exam - General 1994 Respiratory respiratory effort/rhythm Overall: no retractions 12/15/2016 None Full Exam - General 1994 Respiratory respiratory effort/rhythm Overall: normal rate 12/15/2016 None Full Exam - General 1994 Cardiovascular extremities Overall: no clubbing 12/15/2016 None Full Exam - General 1994 Cardiovascular auscultation of heart Overall: regular rate 12/15/2016 None Full Exam - General 1994 Cardiovascular auscultation of heart Overall: normal heart sounds 12/15/2016 None Full Exam - General 1994 Abdomen abdominal exam Overall: no tenderness 12/15/2016 None Full Exam - General 1994 Abdomen abdominal exam Overall: normal bowel sounds 12/15/2016 None Full Exam - General 1994 Musculoskeletal spine, ribs and pelvis Overall: spine benign 12/15/2016 None Full Exam - General 1994 Musculoskeletal spine, ribs and pelvis Overall: sacroiliac joint benign 12/15/2016 None Full Exam - General 1994 Musculoskeletal spine, ribs and pelvis Overall: good posture 12/15/2016 None Full Exam - General 1994 Musculoskeletal head and neck Overall: head atraumatic 12/15/2016 None Full Exam - General 1994 Musculoskeletal head and neck Overall: cervical spine benign 12/15/2016 None Full Exam - General 1994 Neurologic deep tendon reflexes Overall: deep tendon reflexes intact 12/15/2016 None Full Exam - General 1994 Neurologic cranial nerves Overall: crainial nerves 2 - 12 grossly intact 12/15/2016 None Full Exam - General 1994 Psychiatric orientation/consciousness Overall: oriented to person, place and time 12/15/2016 None Full Exam - General 1994 Psychiatric mood and affect Overall: normal mood and affect 12/15/2016 None Full Exam - General 1994 Constitutional general appearance Development: well developed 11/07/2016 None Full Exam - General 1994 Constitutional general appearance Development: appears stated age 0811/07/2016 None Full Exam - General 1994 Constitutional general appearance Hygiene/Attention to Grooming: good hygiene 11/07/2016 None Full Exam - General 1994 Eyes conjunctiva /eyelids Overall: conjunctiva clear 11/07/2016 None Full Exam - General 1994 Eyes conjunctiva /eyelids Overall: cornea clear 11/07/2016 None Full Exam - General 1994 Eyes conjunctiva /eyelids Overall: eyelids normal 11/07/2016 None Full Exam - General 1994 Eyes pupils and irises Overall: pupils equal, round, reactive to light and accomodation 11/07/2016 None Full Exam - General 1994 Ears/Nose/Throat otoscopic exam External auditory canal: complete cerumen impaction 11/07/2016 None Full Exam - General 1994 Ears/Nose/Throat lips/teeth/gingiva Overall: benign lips 11/07/2016 None Full Exam - General 1994 Ears/Nose/Throat lips/teeth/gingiva Overall: normal dentition 11/07/2016 None Full Exam - General 1994 Ears/Nose/Throat oral cavity/pharynx/larynx Overall: oral mucosa clear 11/07/2016 None Full Exam - General 1994 Ears/Nose/Throat oral cavity/pharynx/larynx Overall: oropharyngeal mucosa clear 11/07/2016 None Full Exam - General 1994 Ears/Nose/Throat oral cavity/pharynx/larynx Overall: hypopharynx benign 11/07/2016 None Full Exam - General 1994 Ears/Nose/Throat oral cavity/pharynx/larynx Overall: no masses 11/07/2016 None Full Exam - General 1994 Respiratory auscultation Overall: breath sounds clear bilaterally 11/07/2016 None Full Exam - General 1994 Respiratory respiratory effort/rhythm Overall: no retractions 11/07/2016 None Full Exam - General 1994 Respiratory respiratory effort/rhythm Overall: normal rate 11/07/2016 None Full Exam - General 1994 Cardiovascular extremities Overall: no clubbing 11/07/2016 None Full Exam - General 1994 Cardiovascular auscultation of heart Overall: regular rate 11/07/2016 None Full Exam - General 1994 Cardiovascular auscultation of heart Overall: normal heart sounds 11/07/2016 None Full Exam - General 1994 Abdomen abdominal exam Overall: no tenderness 11/07/2016 None Full Exam - General 1994 Abdomen abdominal exam Overall: normal bowel sounds 11/07/2016 None Full Exam - General 1994 Lymphatic neck nodes Overall: anterior cervical chain benign 11/07/2016 None Full Exam - General 1994 Lymphatic neck nodes Overall: posterior cervical chain benign 11/07/2016 None Full Exam - General 1994 Musculoskeletal spine, ribs and pelvis Overall: spine benign 11/07/2016 None Full Exam - General 1994 Musculoskeletal spine, ribs and pelvis Overall: sacroiliac joint benign 11/07/2016 None Full Exam - General 1994 Musculoskeletal spine, ribs and pelvis Overall: good posture 11/07/2016 None Full Exam - General 1994 Musculoskeletal head and neck Overall: head atraumatic 11/07/2016 None Full Exam - General 1994 Musculoskeletal head and neck Overall: cervical spine benign 11/07/2016 None Full Exam - General 1994 Neurologic deep tendon reflexes Overall: deep tendon reflexes intact 11/07/2016 None Full Exam - General 1994 Neurologic cranial nerves Overall: crainial nerves 2 - 12 grossly intact 11/07/2016 None Full Exam - General 1994 Psychiatric orientation/consciousness Overall: oriented to person, place and time 11/07/2016 None Full Exam - General 1994 Psychiatric mood and affect Overall: normal mood and affect 11/07/2016 None Full Exam - General 1994 Constitutional general appearance Development: well developed 10/14/2016 None Full Exam - General 1994 Constitutional general appearance Development: appears stated age 0710/14/2016 None Full Exam - General 1994 Constitutional general appearance Hygiene/Attention to Grooming: good hygiene 10/14/2016 None Full Exam - General 1994 Eyes conjunctiva /eyelids Overall: conjunctiva clear 10/14/2016 None Full Exam - General 1994 Eyes conjunctiva /eyelids Overall: cornea clear 10/14/2016 None Full Exam - General 1994 Eyes conjunctiva /eyelids Overall: eyelids normal 10/14/2016 None Full Exam - General 1994 Eyes pupils and irises Overall: pupils equal, round, reactive to light and accomodation 10/14/2016 None Full Exam - General 1994 Ears/Nose/Throat otoscopic exam External auditory canal: complete cerumen impaction 10/14/2016 None Full Exam - General 1994 Ears/Nose/Throat lips/teeth/gingiva Overall: benign lips 10/14/2016 None Full Exam - General 1994 Ears/Nose/Throat lips/teeth/gingiva Overall: normal dentition 10/14/2016 None Full Exam - General 1994 Ears/Nose/Throat oral cavity/pharynx/larynx Overall: oral mucosa clear 10/14/2016 None Full Exam - General 1994 Ears/Nose/Throat oral cavity/pharynx/larynx Overall: oropharyngeal mucosa clear 10/14/2016 None Full Exam - General 1994 Ears/Nose/Throat oral cavity/pharynx/larynx Overall: hypopharynx benign 10/14/2016 None Full Exam - General 1994 Ears/Nose/Throat oral cavity/pharynx/larynx Overall: no masses 10/14/2016 None Full Exam - General 1994 Respiratory auscultation Overall: breath sounds clear bilaterally 10/14/2016 None Full Exam - General 1994 Respiratory respiratory effort/rhythm Overall: no retractions 10/14/2016 None Full Exam - General 1994 Respiratory respiratory effort/rhythm Overall: normal rate 10/14/2016 None Full Exam - General 1994 Cardiovascular extremities Overall: no clubbing 10/14/2016 None Full Exam - General 1994 Cardiovascular auscultation of heart Overall: regular rate 10/14/2016 None Full Exam - General 1994 Cardiovascular auscultation of heart Overall: normal heart sounds 10/14/2016 None Full Exam - General 1994 Abdomen abdominal exam Overall: no tenderness 10/14/2016 None Full Exam - General 1994 Abdomen abdominal exam Overall: normal bowel sounds 10/14/2016 None Full Exam - General 1994 Lymphatic neck nodes Overall: anterior cervical chain benign 10/14/2016 None Full Exam - General 1994 Lymphatic neck nodes Overall: posterior cervical chain benign 10/14/2016 None Full Exam - General 1994 Musculoskeletal spine, ribs and pelvis Overall: spine benign 10/14/2016 None Full Exam - General 1994 Musculoskeletal spine, ribs and pelvis Overall: sacroiliac joint benign 10/14/2016 None Full Exam - General 1994 Musculoskeletal spine, ribs and pelvis Overall: good posture 10/14/2016 None Full Exam - General 1994 Musculoskeletal head and neck Overall: head atraumatic 10/14/2016 None Full Exam - General 1994 Musculoskeletal head and neck Overall: cervical spine benign 10/14/2016 None Full Exam - General 1994 Neurologic deep tendon reflexes Overall: deep tendon reflexes intact 10/14/2016 None Full Exam - General 1994 Neurologic cranial nerves Overall: crainial nerves 2 - 12 grossly intact 10/14/2016 None Full Exam - General 1994 Psychiatric orientation/consciousness Overall: oriented to person, place and time 10/14/2016 None Full Exam - General 1994 Psychiatric mood and affect Overall: normal mood and affect 10/14/2016 None Full Exam - General 1994 Constitutional general appearance Development: well developed 09/10/2016 None Full Exam - General 1994 Constitutional general appearance Development: appears stated age 0609/10/2016 None Full Exam - General 1994 Constitutional general appearance Hygiene/Attention to Grooming: good hygiene 09/10/2016 None Full Exam - General 1994 Eyes conjunctiva /eyelids Overall: conjunctiva clear 09/10/2016 None Full Exam - General 1994 Eyes conjunctiva /eyelids Overall: cornea clear 09/10/2016 None Full Exam - General 1994 Eyes conjunctiva /eyelids Overall: eyelids normal 09/10/2016 None Full Exam - General 1994 Eyes pupils and irises Overall: pupils equal, round, reactive to light and accomodation 09/10/2016 None Full Exam - General 1994 Ears/Nose/Throat otoscopic exam External auditory canal: complete cerumen impaction 09/10/2016 None Full Exam - General 1994 Ears/Nose/Throat lips/teeth/gingiva Overall: benign lips 09/10/2016 None Full Exam - General 1994 Ears/Nose/Throat lips/teeth/gingiva Overall: normal dentition 09/10/2016 None Full Exam - General 1994 Ears/Nose/Throat oral cavity/pharynx/larynx Overall: oral mucosa clear 09/10/2016 None Full Exam - General 1994 Ears/Nose/Throat oral cavity/pharynx/larynx Overall: oropharyngeal mucosa clear 09/10/2016 None Full Exam - General 1994 Ears/Nose/Throat oral cavity/pharynx/larynx Overall: hypopharynx benign 09/10/2016 None Full Exam - General 1994 Ears/Nose/Throat oral cavity/pharynx/larynx Overall: no masses 09/10/2016 None Full Exam - General 1994 Respiratory auscultation Overall: breath sounds clear bilaterally 09/10/2016 None Full Exam - General 1994 Respiratory respiratory effort/rhythm Overall: no retractions 09/10/2016 None Full Exam - General 1994 Respiratory respiratory effort/rhythm Overall: normal rate 09/10/2016 None Full Exam - General 1994 Cardiovascular extremities Overall: no clubbing 09/10/2016 None Full Exam - General 1994 Cardiovascular auscultation of heart Overall: regular rate 09/10/2016 None Full Exam - General 1994 Cardiovascular auscultation of heart Overall: normal heart sounds 09/10/2016 None Full Exam - General 1994 Abdomen abdominal exam Overall: no tenderness 09/10/2016 None Full Exam - General 1994 Abdomen abdominal exam Overall: normal bowel sounds 09/10/2016 None Full Exam - General 1994 Lymphatic neck nodes Overall: anterior cervical chain benign 09/10/2016 None Full Exam - General 1994 Lymphatic neck nodes Overall: posterior cervical chain benign 09/10/2016 None Full Exam - General 1994 Musculoskeletal spine, ribs and pelvis Overall: spine benign 09/10/2016 None Full Exam - General 1994 Musculoskeletal spine, ribs and pelvis Overall: sacroiliac joint benign 09/10/2016 None Full Exam - General 1994 Musculoskeletal spine, ribs and pelvis Overall: good posture 09/10/2016 None Full Exam - General 1994 Musculoskeletal head and neck Overall: head atraumatic 09/10/2016 None Full Exam - General 1994 Musculoskeletal head and neck Overall: cervical spine benign 09/10/2016 None Full Exam - General 1994 Neurologic deep tendon reflexes Overall: deep tendon reflexes intact 09/10/2016 None Full Exam - General 1994 Neurologic cranial nerves Overall: crainial nerves 2 - 12 grossly intact 09/10/2016 None Full Exam - General 1994 Psychiatric orientation/consciousness Overall: oriented to person, place and time 09/10/2016 None Full Exam - General 1994 Psychiatric mood and affect Overall: normal mood and affect 09/10/2016 None Full Exam - General 1994 Constitutional general appearance Overall: well developed 07/08/2016 None Full Exam - General 1994 Constitutional general appearance Overall: in no acute distress 07/08/2016 None Full Exam - General 1994 Constitutional general appearance Overall: well nourished 07/08/2016 None Full Exam - General 1994 Eyes conjunctiva /eyelids Overall: conjunctiva clear 07/08/2016 None Full Exam - General 1994 Eyes conjunctiva /eyelids Overall: eyelids normal 07/08/2016 None Full Exam - General 1994 Ears/Nose/Throat lips/teeth/gingiva Overall: benign lips 07/08/2016 None Full Exam - General 1994 Ears/Nose/Throat oral cavity/pharynx/larynx Overall: oral mucosa clear 07/08/2016 None Full Exam - General 1994 Respiratory respiratory effort/rhythm Overall: no retractions 07/08/2016 None Full Exam - General 1994 Respiratory respiratory effort/rhythm Overall: normal rate 07/08/2016 None Full Exam - General 1994 Integument inspection of skin Overall: few scattered moles, no gross abnormalities 07/08/2016 None Full Exam - General 1994 Neurologic cranial nerves Overall: crainial nerves 2 - 12 grossly intact 07/08/2016 None Full Exam - General 1994 Psychiatric orientation/consciousness Overall: oriented to person, place and time 07/08/2016 None Full Exam - General 1994 Psychiatric mood and affect Overall: normal mood and affect 07/08/2016 None Full Exam - General 1994 Psychiatric appearance Overall: well-groomed, good eye contact 07/08/2016 None Full Exam - General 1994 Musculoskeletal head and neck Overall: head atraumatic 07/08/2016 None Full Exam - General 1994 Respiratory auscultation Overall: breath sounds clear bilaterally 07/08/2016 None Full Exam - General 1994 Cardiovascular auscultation of heart Overall: regular rate 07/08/2016 None Full Exam - General 1994 Cardiovascular auscultation of heart Overall: normal heart sounds 07/08/2016 None Full Exam - General 1994 Constitutional general appearance Development: well developed 06/16/2016 None Full Exam - General 1994 Constitutional general appearance Development: appears stated age 0306/16/2016 None Full Exam - General 1994 Constitutional general appearance Hygiene/Attention to Grooming: good hygiene 06/16/2016 None Full Exam - General 1994 Eyes conjunctiva /eyelids Overall: conjunctiva clear 06/16/2016 None Full Exam - General 1994 Eyes conjunctiva /eyelids Overall: cornea clear 06/16/2016 None Full Exam - General 1994 Eyes conjunctiva /eyelids Overall: eyelids normal 06/16/2016 None Full Exam - General 1994 Eyes pupils and irises Overall: pupils equal, round, reactive to light and accomodation 06/16/2016 None Full Exam - General 1994 Ears/Nose/Throat otoscopic exam External auditory canal: complete cerumen impaction 06/16/2016 None Full Exam - General 1994 Ears/Nose/Throat lips/teeth/gingiva Overall: benign lips 06/16/2016 None Full Exam - General 1994 Ears/Nose/Throat lips/teeth/gingiva Overall: normal dentition 06/16/2016 None Full Exam - General 1994 Ears/Nose/Throat oral cavity/pharynx/larynx Overall: oral mucosa clear 06/16/2016 None Full Exam - General 1994 Ears/Nose/Throat oral cavity/pharynx/larynx Overall: oropharyngeal mucosa clear 06/16/2016 None Full Exam - General 1994 Ears/Nose/Throat oral cavity/pharynx/larynx Overall: hypopharynx benign 06/16/2016 None Full Exam - General 1994 Ears/Nose/Throat oral cavity/pharynx/larynx Overall: no masses 06/16/2016 None Full Exam - General 1994 Respiratory auscultation Overall: breath sounds clear bilaterally 06/16/2016 None Full Exam - General 1994 Respiratory respiratory effort/rhythm Overall: no retractions 06/16/2016 None Full Exam - General 1994 Respiratory respiratory effort/rhythm Overall: normal rate 06/16/2016 None Full Exam - General 1994 Cardiovascular extremities Overall: no clubbing 06/16/2016 None Full Exam - General 1994 Cardiovascular auscultation of heart Overall: regular rate 06/16/2016 None Full Exam - General 1994 Cardiovascular auscultation of heart Overall: normal heart sounds 06/16/2016 None Full Exam - General 1994 Abdomen abdominal exam Overall: no tenderness 06/16/2016 None Full Exam - General 1994 Abdomen abdominal exam Overall: normal bowel sounds 06/16/2016 None Full Exam - General 1994 Lymphatic neck nodes Overall: anterior cervical chain benign 06/16/2016 None Full Exam - General 1994 Lymphatic neck nodes Overall: posterior cervical chain benign 06/16/2016 None Full Exam - General 1994 Musculoskeletal spine, ribs and pelvis Overall: spine benign 06/16/2016 None Full Exam - General 1994 Musculoskeletal spine, ribs and pelvis Overall: sacroiliac joint benign 06/16/2016 None Full Exam - General 1994 Musculoskeletal spine, ribs and pelvis Overall: good posture 06/16/2016 None Full Exam - General 1994 Musculoskeletal head and neck Overall: head atraumatic 06/16/2016 None Full Exam - General 1994 Musculoskeletal head and neck Overall: cervical spine benign 06/16/2016 None Full Exam - General 1994 Neurologic deep tendon reflexes Overall: deep tendon reflexes intact 06/16/2016 None Full Exam - General 1994 Neurologic cranial nerves Overall: crainial nerves 2 - 12 grossly intact 06/16/2016 None Full Exam - General 1994 Psychiatric orientation/consciousness Overall: oriented to person, place and time 06/16/2016 None Full Exam - General 1994 Psychiatric mood and affect Overall: normal mood and affect 06/16/2016 None Full Exam - General 1994 Constitutional general appearance Development: well developed 01/31/2016 None Full Exam - General 1994 Constitutional general appearance Development: appears stated age 1001/31/2016 None Full Exam - General 1994 Constitutional general appearance Hygiene/Attention to Grooming: good hygiene 01/31/2016 None Full Exam - General 1994 Eyes conjunctiva /eyelids Overall: conjunctiva clear 01/31/2016 None Full Exam - General 1994 Eyes conjunctiva /eyelids Overall: cornea clear 01/31/2016 None Full Exam - General 1994 Eyes conjunctiva /eyelids Overall: eyelids normal 01/31/2016 None Full Exam - General 1994 Eyes pupils and irises Overall: pupils equal, round, reactive to light and accomodation 01/31/2016 None Full Exam - General 1994 Ears/Nose/Throat otoscopic exam External auditory canal: complete cerumen impaction 01/31/2016 None Full Exam - General 1994 Ears/Nose/Throat lips/teeth/gingiva Overall: benign lips 01/31/2016 None Full Exam - General 1994 Ears/Nose/Throat lips/teeth/gingiva Overall: normal dentition 01/31/2016 None Full Exam - General 1994 Ears/Nose/Throat oral cavity/pharynx/larynx Overall: oral mucosa clear 01/31/2016 None Full Exam - General 1994 Ears/Nose/Throat oral cavity/pharynx/larynx Overall: oropharyngeal mucosa clear 01/31/2016 None Full Exam - General 1994 Ears/Nose/Throat oral cavity/pharynx/larynx Overall: hypopharynx benign 01/31/2016 None Full Exam - General 1994 Ears/Nose/Throat oral cavity/pharynx/larynx Overall: no masses 01/31/2016 None Full Exam - General 1994 Respiratory auscultation Overall: breath sounds clear bilaterally 01/31/2016 None Full Exam - General 1994 Respiratory respiratory effort/rhythm Overall: no retractions 01/31/2016 None Full Exam - General 1994 Respiratory respiratory effort/rhythm Overall: normal rate 01/31/2016 None Full Exam - General 1994 Cardiovascular extremities Overall: no clubbing 01/31/2016 None Full Exam - General 1994 Cardiovascular auscultation of heart Overall: regular rate 01/31/2016 None Full Exam - General 1994 Cardiovascular auscultation of heart Overall: normal heart sounds 01/31/2016 None Full Exam - General 1994 Abdomen abdominal exam Overall: no tenderness 01/31/2016 None Full Exam - General 1994 Abdomen abdominal exam Overall: normal bowel sounds 01/31/2016 None Full Exam - General 1994 Lymphatic neck nodes Overall: anterior cervical chain benign 01/31/2016 None Full Exam - General 1994 Lymphatic neck nodes Overall: posterior cervical chain benign 01/31/2016 None Full Exam - General 1994 Musculoskeletal spine, ribs and pelvis Overall: spine benign 01/31/2016 None Full Exam - General 1994 Musculoskeletal spine, ribs and pelvis Overall: sacroiliac joint benign 01/31/2016 None Full Exam - General 1994 Musculoskeletal spine, ribs and pelvis Overall: good posture 01/31/2016 None Full Exam - General 1994 Musculoskeletal head and neck Overall: head atraumatic 01/31/2016 None Full Exam - General 1994 Musculoskeletal head and neck Overall: cervical spine benign 01/31/2016 None Full Exam - General 1994 Neurologic deep tendon reflexes Overall: deep tendon reflexes intact 01/31/2016 None Full Exam - General 1994 Neurologic cranial nerves Overall: crainial nerves 2 - 12 grossly intact 01/31/2016 None Full Exam - General 1994 Psychiatric orientation/consciousness Overall: oriented to person, place and time 01/31/2016 None Full Exam - General 1994 Psychiatric mood and affect Overall: normal mood and affect 01/31/2016 None Full Exam - General 1994 Constitutional general appearance Development: well developed 01/03/2016 None Full Exam - General 1994 Constitutional general appearance Development: appears stated age 0901/03/2016 None Full Exam - General 1994 Constitutional general appearance Hygiene/Attention to Grooming: good hygiene 01/03/2016 None Full Exam - General 1994 Eyes conjunctiva /eyelids Overall: conjunctiva clear 01/03/2016 None Full Exam - General 1994 Eyes conjunctiva /eyelids Overall: cornea clear 01/03/2016 None Full Exam - General 1994 Eyes conjunctiva /eyelids Overall: eyelids normal 01/03/2016 None Full Exam - General 1994 Eyes pupils and irises Overall: pupils equal, round, reactive to light and accomodation 01/03/2016 None Full Exam - General 1994 Ears/Nose/Throat otoscopic exam External auditory canal: complete cerumen impaction 01/03/2016 None Full Exam - General 1994 Ears/Nose/Throat lips/teeth/gingiva Overall: benign lips 01/03/2016 None Full Exam - General 1994 Ears/Nose/Throat lips/teeth/gingiva Overall: normal dentition 01/03/2016 None Full Exam - General 1994 Ears/Nose/Throat oral cavity/pharynx/larynx Overall: oral mucosa clear 01/03/2016 None Full Exam - General 1994 Ears/Nose/Throat oral cavity/pharynx/larynx Overall: oropharyngeal mucosa clear 01/03/2016 None Full Exam - General 1994 Ears/Nose/Throat oral cavity/pharynx/larynx Overall: hypopharynx benign 01/03/2016 None Full Exam - General 1994 Ears/Nose/Throat oral cavity/pharynx/larynx Overall: no masses 01/03/2016 None Full Exam - General 1994 Respiratory auscultation Overall: breath sounds clear bilaterally 01/03/2016 None Full Exam - General 1994 Respiratory respiratory effort/rhythm Overall: no retractions 01/03/2016 None Full Exam - General 1994 Respiratory respiratory effort/rhythm Overall: normal rate 01/03/2016 None Full Exam - General 1994 Cardiovascular extremities Overall: no clubbing 01/03/2016 None Full Exam - General 1994 Cardiovascular auscultation of heart Overall: regular rate 01/03/2016 None Full Exam - General 1994 Cardiovascular auscultation of heart Overall: normal heart sounds 01/03/2016 None Full Exam - General 1994 Abdomen abdominal exam Overall: no tenderness 01/03/2016 None Full Exam - General 1994 Abdomen abdominal exam Overall: normal bowel sounds 01/03/2016 None Full Exam - General 1994 Lymphatic neck nodes Overall: anterior cervical chain benign 01/03/2016 None Full Exam - General 1994 Lymphatic neck nodes Overall: posterior cervical chain benign 01/03/2016 None Full Exam - General 1994 Musculoskeletal spine, ribs and pelvis Overall: spine benign 01/03/2016 None Full Exam - General 1994 Musculoskeletal spine, ribs and pelvis Overall: sacroiliac joint benign 01/03/2016 None Full Exam - General 1994 Musculoskeletal spine, ribs and pelvis Overall: good posture 01/03/2016 None Full Exam - General 1994 Musculoskeletal head and neck Overall: head atraumatic 01/03/2016 None Full Exam - General 1994 Musculoskeletal head and neck Overall: cervical spine benign 01/03/2016 None Full Exam - General 1994 Integument inspection of skin Overall: few scattered moles, no gross abnormalities 01/03/2016 None Full Exam - General 1994 Neurologic deep tendon reflexes Overall: deep tendon reflexes intact 01/03/2016 None Full Exam - General 1994 Neurologic cranial nerves Overall: crainial nerves 2 - 12 grossly intact 01/03/2016 None Full Exam - General 1994 Psychiatric orientation/consciousness Overall: oriented to person, place and time 01/03/2016 None Full Exam - General 1994 Psychiatric mood and affect Overall: normal mood and affect 01/03/2016 None Full Exam - General 1994 Constitutional general appearance Development: well developed 11/21/2015 None Full Exam - General 1994 Constitutional general appearance Development: appears stated age 0811/21/2015 None Full Exam - General 1994 Constitutional general appearance Hygiene/Attention to Grooming: good hygiene 11/21/2015 None Full Exam - General 1994 Eyes conjunctiva /eyelids Overall: conjunctiva clear 11/21/2015 None Full Exam - General 1994 Eyes conjunctiva /eyelids Overall: cornea clear 11/21/2015 None Full Exam - General 1994 Eyes conjunctiva /eyelids Overall: eyelids normal 11/21/2015 None Full Exam - General 1994 Eyes pupils and irises Overall: pupils equal, round, reactive to light and accomodation 11/21/2015 None Full Exam - General 1994 Ears/Nose/Throat lips/teeth/gingiva Overall: benign lips 11/21/2015 None Full Exam - General 1994 Ears/Nose/Throat lips/teeth/gingiva Overall: normal dentition 11/21/2015 None Full Exam - General 1994 Ears/Nose/Throat oral cavity/pharynx/larynx Overall: oral mucosa clear 11/21/2015 None Full Exam - General 1994 Ears/Nose/Throat oral cavity/pharynx/larynx Overall: oropharyngeal mucosa clear 11/21/2015 None Full Exam - General 1994 Ears/Nose/Throat oral cavity/pharynx/larynx Overall: hypopharynx benign 11/21/2015 None Full Exam - General 1994 Ears/Nose/Throat oral cavity/pharynx/larynx Overall: no masses 11/21/2015 None Full Exam - General 1994 Respiratory auscultation Overall: breath sounds clear bilaterally 11/21/2015 None Full Exam - General 1994 Respiratory respiratory effort/rhythm Overall: no retractions 11/21/2015 None Full Exam - General 1994 Respiratory respiratory effort/rhythm Overall: normal rate 11/21/2015 None Full Exam - General 1994 Cardiovascular extremities Overall: no clubbing 11/21/2015 None Full Exam - General 1994 Cardiovascular auscultation of heart Overall: regular rate 11/21/2015 None Full Exam - General 1994 Cardiovascular auscultation of heart Overall: normal heart sounds 11/21/2015 None Full Exam - General 1994 Abdomen abdominal exam Overall: no tenderness 11/21/2015 None Full Exam - General 1994 Abdomen abdominal exam Overall: normal bowel sounds 11/21/2015 None Full Exam - General 1994 Lymphatic neck nodes Overall: anterior cervical chain benign 11/21/2015 None Full Exam - General 1994 Lymphatic neck nodes Overall: posterior cervical chain benign 11/21/2015 None Full Exam - General 1994 Musculoskeletal spine, ribs and pelvis Overall: spine benign 11/21/2015 None Full Exam - General 1994 Musculoskeletal spine, ribs and pelvis Overall: sacroiliac joint benign 11/21/2015 None Full Exam - General 1994 Musculoskeletal spine, ribs and pelvis Overall: good posture 11/21/2015 None Full Exam - General 1994 Musculoskeletal head and neck Overall: head atraumatic 11/21/2015 None Full Exam - General 1994 Musculoskeletal head and neck Overall: cervical spine benign 11/21/2015 None Full Exam - General 1994 Integument inspection of skin Overall: few scattered moles, no gross abnormalities 11/21/2015 None Full Exam - General 1994 Neurologic deep tendon reflexes Overall: deep tendon reflexes intact 11/21/2015 None Full Exam - General 1994 Neurologic cranial nerves Overall: crainial nerves 2 - 12 grossly intact 11/21/2015 None Full Exam - General 1994 Psychiatric orientation/consciousness Overall: oriented to person, place and time 11/21/2015 None Full Exam - General 1994 Psychiatric mood and affect Overall: normal mood and affect 11/21/2015 None Full Exam - General 1994 Ears/Nose/Throat otoscopic exam External auditory canal: complete cerumen impaction 11/21/2015 None Procedures Procedure Codes Date URINALYSIS NONAUTO W/O SCOPE CPT-4: 47286 11/07/2016 URINALYSIS NONAUTO W/O SCOPE CPT-4: 89364 02/26/2016 ADMIN INFLUENZA VIRUS VAC CPT-4: G0008 01/03/2016 FLU VACC 4 ARIANNA 3 YRS PLUS IM SNOMED CT: [id number] CPT-4: 01037 01/03/2016 Vital Signs Date Vital 03/16/2017 Blood Pressure 1: 132/70 Code : 8480-6 BMI: 34.5 Code : 26057-0 Heart Rate 1 : 78 bpm Height: 5'4" SpO2: 98% Weight: 201 lbs 12/15/2016 Blood Pressure 1: 140/80 Code : 8480-6 BMI: 34.2 Code : 95536-8 Heart Rate 1 : 69 bpm Height: 5'4" SpO2: 98% Weight: 199 lbs 11/07/2016 Blood Pressure 1: 158/82 Code : 8480-6 BMI: 34.7 Code : 67323-1 Heart Rate 1 : 76 bpm Height: 5'4" SpO2: 98% Weight: 202 lbs 10/14/2016 Blood Pressure 1: 140/80 Code : 8480-6 BMI: 34.0 Code : 00814-1 Heart Rate 1 : 79 bpm Height: 5'4" SpO2: 96% Weight: 198 lbs 09/10/2016 Blood Pressure 1: 158/80 Code : 8480-6 BMI: 34.3 Code : 86249-9 Heart Rate 1 : 75 bpm Height: 5'4" SpO2: 98% Weight: 200 lbs 07/08/2016 Blood Pressure 1: 160/74 Code : 8480-6 BMI: 35.2 Code : 34233-2 Heart Rate 1 : 94 bpm Height: 5'4" SpO2: 97% Weight: 205 lbs 06/16/2016 Blood Pressure 1: 138/76 Code : 8480-6 BMI: 35.0 Code : 10353-1 Heart Rate 1 : 68 bpm Height: 5'4" SpO2: 98% Weight: 204 lbs 01/31/2016 Blood Pressure 1: 136/64 Code : 8480-6 BMI: 33.6 Code : 57760-9 Heart Rate 1 : 92 bpm Height: 5'4" SpO2: 98% Weight: 196 lbs 01/03/2016 Blood Pressure 1: 142/68 Code : 8480-6 BMI: 33.8 Code : 25378-1 Heart Rate 1 : 80 bpm Height: 5'4" SpO2: 97% Weight: 197 lbs 11/30/2015 Blood Pressure 1: 158/80 Code : 8480-6 Heart Rate 1: 83 bpm SpO2: 98% 11/21/2015 Blood Pressure 1: 172/80 Code : 8480-6 BMI: 32.8 Code : 39847-6 Heart Rate 1 : 87 bpm Height: 5'4" SpO2: 98% Weight: 191 lbs Functional Status No Functional Status data History of Present Illness Symptom Name Status Result Effective Date Notes hypertension Quality primary hypertension 03/16/2017 None hypertension Onset and Resolution ongoing 03/16/2017 None hypertension Onset of Symptom during adulthood 03/16/2017 None hypertension Alleviating Factors medication 03/16/2017 None hypertension Exacerbating Factors stress 03/16/2017 None hypertension Pertinent Findings Denies dizziness 03/16/2017 --Only on rare occasions hypertension Pertinent Findings Denies dyspnea 03/16/2017 None hypertension Pertinent Findings edema 03/16/2017 in his left leg-- from a blood clot in 2006 hypertension Blood Pressure Values not checking blood pressure at home 03/16/2017 None hypertension Quality primary hypertension 12/15/2016 None hypertension Onset and Resolution ongoing 12/15/2016 None hypertension Onset of Symptom during adulthood 12/15/2016 None hypertension Blood Pressure Values patient checking blood pressure at home - did not bring in readings 12/15/2016 None hypertension Alleviating Factors medication 12/15/2016 None hypertension Exacerbating Factors stress 12/15/2016 None hypertension Pertinent Findings Denies dizziness 12/15/2016 None hypertension Pertinent Findings Denies dyspnea 12/15/2016 None hypertension Pertinent Findings edema 12/15/2016 in his left leg-- from a blood clot in 2006 anemia Onset and Resolution ongoing 11/07/2016 None anemia Onset of Symptom during adulthood 11/07/2016 None anemia Pertinent Findings decreased energy 11/07/2016 None anemia Pertinent Findings Denies weakness 11/07/2016 None anemia Pertinent Findings Denies tachycardia 11/07/2016 None anemia Frequency of Episodes unchanged 11/07/2016 None anemia Triggers no known associated factors 11/07/2016 None anemia Significant Medical Conditions gastrointestinal bleeding 11/07/2016 None hypertension Quality primary hypertension 10/14/2016 None hypertension Onset and Resolution ongoing 10/14/2016 None hypertension Onset of Symptom during adulthood 10/14/2016 None hypertension Blood Pressure Values patient checking blood pressure at home - did not bring in readings 10/14/2016 None hypertension Alleviating Factors medication 10/14/2016 None hypertension Exacerbating Factors stress 10/14/2016 None hypertension Pertinent Findings Denies dizziness 10/14/2016 None hypertension Pertinent Findings Denies dyspnea 10/14/2016 None hypertension Pertinent Findings edema 10/14/2016 in his left leg-- from a blood clot in 2006 hematuria Quality intermittent 10/14/2016 None hematuria Onset and Resolution ongoing 10/14/2016 None hematuria Pertinent Findings Denies bladder pain 10/14/2016 None hematuria Pertinent Findings Denies pelvic pain 10/14/2016 None hematuria Pertinent Findings Denies testicular pain 10/14/2016 None hypertension Onset and Resolution ongoing 09/10/2016 None hypertension Onset of Symptom during adulthood 09/10/2016 None hypertension Alleviating Factors medication 09/10/2016 None hypertension Exacerbating Factors stress 09/10/2016 None hypertension Pertinent Findings Denies dizziness 09/10/2016 None hypertension Pertinent Findings Denies dyspnea 09/10/2016 None hypertension Pertinent Findings edema 09/10/2016 in his left leg-- from a blood clot in 2006 hyperlipidemia Onset and Resolution gradual in onset 09/10/2016 None hyperlipidemia Onset and Resolution ongoing 09/10/2016 None hyperlipidemia Onset of Symptom during adulthood 09/10/2016 None hyperlipidemia Alleviating Factors medication 09/10/2016 None hyperlipidemia Exacerbating Factors diet 09/10/2016 None hypertension Quality primary hypertension 09/10/2016 None hypertension Blood Pressure Values patient checking blood pressure at home - did not bring in readings 09/10/2016 None hematuria Quality intermittent 07/08/2016 None hematuria Onset and Resolution sudden in onset 07/08/2016 None hematuria Onset of Symptom 3 days ago 07/08/2016 None hypertension Onset and Resolution ongoing 06/16/2016 None hypertension Onset of Symptom during adulthood 06/16/2016 None hypertension Blood Pressure Values pt checking blood pressure - see scanned document 06/16/2016 None hypertension Alleviating Factors medication 06/16/2016 None hypertension Exacerbating Factors stress 06/16/2016 None hypertension Pertinent Findings Denies dizziness 06/16/2016 None hypertension Pertinent Findings Denies dyspnea 06/16/2016 None hypertension Pertinent Findings edema 06/16/2016 in his left leg-- from a blood clot in 2006 hyperlipidemia Onset and Resolution gradual in onset 06/16/2016 None hyperlipidemia Onset and Resolution ongoing 06/16/2016 None hyperlipidemia Onset of Symptom during adulthood 06/16/2016 None hyperlipidemia Alleviating Factors medication 06/16/2016 None hyperlipidemia Exacerbating Factors diet 06/16/2016 None hyperlipidemia Pertinent Findings edema 06/16/2016 None hyperlipidemia Pertinent Findings Denies weight loss 06/16/2016 None hyperlipidemia Pertinent Findings obesity 06/16/2016 None hypertension Onset and Resolution ongoing 01/31/2016 None hypertension Onset of Symptom during adulthood 01/31/2016 None hypertension Blood Pressure Values pt checking blood pressure - see scanned document 01/31/2016 None hypertension Alleviating Factors medication 01/31/2016 None hypertension Exacerbating Factors stress 01/31/2016 None hypertension Pertinent Findings Denies dizziness 01/31/2016 None hypertension Pertinent Findings Denies dyspnea 01/31/2016 None hypertension Pertinent Findings edema 01/31/2016 in his left leg-- from a blood clot in 2006 hyperlipidemia Onset and Resolution gradual in onset 01/31/2016 None hyperlipidemia Onset and Resolution ongoing 01/31/2016 None hyperlipidemia Onset of Symptom during adulthood 01/31/2016 None hyperlipidemia Alleviating Factors medication 01/31/2016 None hyperlipidemia Exacerbating Factors diet 01/31/2016 None hypertension Onset and Resolution ongoing 01/03/2016 None hypertension Onset of Symptom during adulthood 01/03/2016 None hypertension Blood Pressure Values pt checking blood pressure - see scanned document 01/03/2016 None hypertension Alleviating Factors medication 01/03/2016 None hypertension Exacerbating Factors stress 01/03/2016 None hypertension Pertinent Findings Denies dizziness 01/03/2016 None hypertension Pertinent Findings Denies dyspnea 01/03/2016 None hypertension Pertinent Findings edema 01/03/2016 in his left leg-- from a blood clot in 2006 hyperlipidemia Onset and Resolution gradual in onset 01/03/2016 None hyperlipidemia Onset and Resolution ongoing 01/03/2016 None hyperlipidemia Onset of Symptom during adulthood 01/03/2016 None hyperlipidemia Alleviating Factors medication 01/03/2016 None hyperlipidemia Exacerbating Factors diet 01/03/2016 None hypertension Quality constant 01/03/2016 None skin lesion Quality enlarging 01/03/2016 None skin lesion Onset of Symptom 2 weeks ago 01/03/2016 None skin lesion Quality firm 01/03/2016 None skin lesion Location on the nose 01/03/2016 None hypertension Onset and Resolution ongoing 11/21/2015 None hypertension Onset of Symptom during adulthood 11/21/2015 None hypertension Blood Pressure Values pt checking blood pressure - see scanned document 11/21/2015 None hypertension Alleviating Factors medication 11/21/2015 None hypertension Pertinent Findings Denies dizziness 11/21/2015 None hypertension Pertinent Findings Denies dyspnea 11/21/2015 None hypertension Pertinent Findings edema 11/21/2015 in his left leg-- from a blood clot in 2006 hyperlipidemia Onset and Resolution gradual in onset 11/21/2015 None hyperlipidemia Onset and Resolution ongoing 11/21/2015 None hyperlipidemia Onset of Symptom during adulthood 11/21/2015 None hyperlipidemia Alleviating Factors medication 11/21/2015 None hyperlipidemia Exacerbating Factors diet 11/21/2015 None hypertension Exacerbating Factors stress 11/21/2015 None Advance Directives No Advance Directive data Encounters Encounter Performer Location Codes Date ([id number]) [id number] EST. 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 PATIENT, LEVEL IV Diagnosis: Essential (primary) hypertension[ICD10: I10] Diagnosis: Mixed hyperlipidemia[ICD10: E78.2] Diagnosis: Gross hematuria[ICD10: R31.0] Pamela Gallardo MD [facility] CPT- 4: 28792 10/14/2016 ([id number]) 90151 EST. 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 PATIENT, LEVEL III Diagnosis: Gross hematuria[ICD10: R31.0] Octavia Gallardo MD [facility] CPT-4 : 03941 07/08/2016 ([id number]) 28172 EST. 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 PATIENT, LEVEL IV Diagnosis: Essential (primary) hypertension[ICD10: I10] Diagnosis: Mixed hyperlipidemia[ICD10: E78.2] Pamela Gallardo MD [facility] CPT-4: 62431 01/31/2016 ([id number]) 31486 EST. PATIENT, LEVEL IV Diagnosis: Essential (primary) hypertension[ICD10: I10] Diagnosis: Mixed hyperlipidemia[ICD10: E78.2] Diagnosis: Encounter for immunization[ICD10: Z23] Pamela Gallardo MD [facility] CPT-4: 86183 01/03/2016 ([id number]) Miscellaneous no charge Diagnosis: Essential (primary) hypertension[ICD10: I10] Octavia Gallardo MD, [facility] CPT-4: 03789 11/30/2015 ([id number]) OFFICE VISIT, NEW - LEVEL 4 Diagnosis: Essential (primary) hypertension[ICD10: I10] Diagnosis: Mixed hyperlipidemia[ICD10: E78.2] Diagnosis: Impacted cerumen, bilateral[ICD10: H61.23] [facility] CPT-4: 22420 11/21/2015 Plan of Care Planned Activity Notes Codes Status Date Visit Plan: Hypertension - well controlled - continue with current medications, continue with no added salt diet. Pt has been encouraged to exercise daily. The pt has been advised to call the office if there are any acute concerns about change in blood pressure readings at home. Unsteady on feet - discussed pt needs to be scheduled for physical therapy - he will talk to his and let us know who he would like to go to for physical therapy Hyperlipidemia - pt has been counseled about appropriate diet, exercise, and need for low fat food choices. I have discussed the need for the patient to take medications as prescribed. If the patient has negative side effects from the medication, they are to CALL the office and not abruptly discontinue the medication without discussion with a practitioner in the office. We will check labs in 3-6 months for follow up on the patient's chronic medical problem and to assure normal liver response to medications. Iron deficiency anemia - chronic but stable, monitor symptoms. 03/16/2017 Appointment: Pamela Gallardo WPtel: [address] [place], [place] [id number] (15 min) Moderate 03/16/2017 Patient Education: Patient Medication Summary Completed 03/16/2017 Patient Education: Obesity Completed 03/16/2017 Appointment: Pamela Gallardo WPtel: [address] [place], [place] [id number] (15 min) Moderate 12/30/2016 Visit Plan: Hypertension - well controlled - continue with current medications, continue with no added salt diet. Pt has been encouraged to exercise daily. The pt has been advised to call the office if there are any acute concerns about change in blood pressure readings at home. Hyperlipidemia - pt has been counseled about appropriate diet, exercise, and need for low fat food choices. I have discussed the need for the patient to take medications as prescribed. If the patient has negative side effects from the medication, they are to CALL the office and not abruptly discontinue the medication without discussion with a practitioner in the office. We will check labs in 3-6 months for follow up on the patient's chronic medical problem and to assure normal liver response to medications. Chronic anticoagulation - continue with current management - check labs today. 12/15/2016 Appointment: Pamela Gallardo WPtel: [phone] [facility] [place] (15 min) Moderate 12/15/2016 Patient Education: Patient Medication Summary Completed 12/15/2016 Visit Plan: Iron deficiency [id number] bleeding- INR has been stable-continue multivitamin with iron daily Hematuria-3+ blood in urine-check PT/INR today-culture urine 11/07/2016 Appointment: Kelli Mccullough WPtel: [phone] [phone] [place] (15 min) Moderate 11/07/2016 Patient Education: Patient Medication Summary Completed 11/07/2016 Patient Education: Obesity Completed 11/07/2016 Care Plan: Pt Pending 11/07/2016 Visit Plan: Hypertension - well controlled - continue with current medications, continue with no added salt diet. Pt has been encouraged to exercise daily. The pt has been advised to call the office if there are any acute concerns about change in blood pressure readings at home. Hematuria - due to his coumadin level being above 2.3 - will decrease dose of coumadin if needed to keep INR below 2.3. Hyperlipidemia - pt has been counseled about appropriate diet, exercise, and need for low fat food choices. I have discussed the need for the patient to take medications as prescribed. If the patient has negative side effects from the medication, they are to CALL the office and not abruptly discontinue the medication without discussion with a practitioner in the office. We will check labs in 3-6 months for follow up on the patient's chronic medical problem and to assure normal liver response to medications. 10/14/2016 Appointment: [phone] [facility] [place] (15 min) Moderate 10/14/2016 Patient Education: Patient Medication Summary Completed 10/14/2016 Patient Education: Obesity Completed 10/14/2016 Appointment: Pamela Gallardo WPtel: [phone] [facility] [place] (15 min) Moderate 10/09/2016 Visit Plan: Hypertension - well controlled - continue with current medications, continue with no added salt diet. Pt has been encouraged to exercise daily. The pt has been advised to call the office if there are any acute concerns about change in blood pressure readings at home. 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 Therapeutic goal for INR is between 2.0 and 3.5. Medication changes as follows: increase the coumadin to 5mg on Tuesdays, and 7.5mg all other days of the week - repeat INR in two weeks. 09/10/2016 Patient Education: Patient Medication Summary Completed 09/10/2016 Patient Education: Obesity Completed 09/10/2016 Visit Plan: Hematuria - normal cystoscopy on 03/26/16 - Pt states that Dr. Lincoln used to keep his INR between 2.1 and 2.3. Will have pt take coumadin 5mg on Thursday and 7.5mg all other days - repeat next Thursday morning. Will culture urine, if symptoms persist will order bladder US and have pt follow up with his urologist. Pt is to notify clinic if symptoms do not improve, if they worsen, or with any questions or concerns. 07/08/2016 Visit Plan: Hematuria - normal cystoscopy on 03/26/16 - Pt states that Dr. Lincoln used to keep his INR between 2.1 and 2.3. Will have pt take coumadin 5mg on Thursday and 7.5mg all other days - repeat next Thursday morning. Will culture urine, if symptoms persist will order bladder US and have pt follow up with his urologist. Pt is to notify clinic if symptoms do not improve, if they worsen, or with any questions or concerns. 07/08/2016 Appointment: [phone] [facility] [place] (15 min) Moderate 07/08/2016 Patient Education: Patient Medication Summary Completed 07/08/2016 Visit Plan: Hypertension - well controlled - continue with current medications, continue with no added salt diet. Pt has been encouraged to exercise daily. The pt has been advised to call the office if there are any acute concerns about change in blood pressure readings at home. Hyperlipidemia - pt has been counseled about appropriate diet, exercise, and need for low fat food choices. I have discussed the need for the patient to take medications as prescribed. If the patient has negative side effects from the medication, they are to CALL the office and not abruptly discontinue the medication without discussion with a practitioner in the office. We will check labs in 3-6 months for follow up on the patient's chronic medical problem and to assure normal liver response to medications. Chronic anticoagulation - continue with coumadin. 06/16/2016 Appointment: Pamela Gallardo WPtel: [phone] [facility] (15 min) Moderate 06/16/2016 Patient Education: Patient Medication Summary Completed 06/16/2016 Patient Education: Obesity Completed 06/16/2016 Appointment: Pamela Gallardo WPtel: [facility] [place] (15 min) Moderate 05/22/2016 Patient Education: Patient Medication Summary Completed 03/13/2016 Appointment: Nurse Visit 02/26/2016 Patient Education: Patient Medication Summary Completed 02/26/2016 Visit Plan: Hypertension - well controlled - continue with current medications, continue with no added salt diet. Pt has been encouraged to exercise daily. The pt has been advised to call the office if there are any acute concerns about change in blood pressure readings at home. Hyperlipidemia - pt has been counseled about appropriate diet, exercise, and need for low fat food choices. I have discussed the need for the patient to take medications as prescribed. If the patient has negative side effects from the medication, they are to CALL the office and not abruptly discontinue the medication without discussion with a practitioner in the office. We will check labs in 3-6 months for follow up on the patient's chronic medical problem and to assure normal liver response to medications. 01/31/2016 Appointment: Pamela Gallardo WPtel: [phone] [facility] (15 min) Moderate 01/31/2016 Patient Education: Patient Medication Summary Completed 01/31/2016 Patient Education: Obesity Completed 01/31/2016 Visit Plan: Hypertension - well controlled - continue with current medications, continue with no added salt diet. Pt has been encouraged to exercise daily. The pt has been advised to call the office if there are any acute concerns about change in blood pressure readings at home. Hyperlipidemia - pt has been counseled about appropriate diet, exercise, and need for low fat food choices. I have discussed the need for the patient to take medications as prescribed. If the patient has negative side effects from the medication, they are to CALL the office and not abruptly discontinue the medication without discussion with a practitioner in the office. We will check labs in 3-6 months for follow up on the patient's chronic medical problem and to assure normal liver response to medications. 01/03/2016 Appointment: Pamela Gallardo WPtel: [id number] (15 min) Moderate 01/03/2016 Patient Education: Patient Medication Summary Completed 01/03/2016 Patient Education: Obesity Completed 01/03/2016 Appointment: Nurse Visit 11/30/2015 Patient Education: Patient Medication Summary Completed 11/30/2015 Visit Plan: Hypertension - uncontrolled - the patient's medications have been modified as documented in the visit note. The patient has been counseled to cut back on salt in diet for a no added salt diet, low fat diet, start an exercise program with low weight bearing exercises and higher aerobic activity for heart health. The patient is to check blood pressure readings as an outpatient and either fax, call, or email the readings to the office next week for practitioner to review. The pt is to call for acute concerns. blood pressure is uncontrolled - i recommend pt to continue with lisinopril and to start on norvasc (amlodipine) 5mg daily - take in the evening. Cerumen impaction - -use sweet oil, or olive oil, or debrox ear wax drops to the plugged right ear nightly until hearing improves or until next office visit. Hyperlipidemia - pt has been counseled about appropriate diet, exercise, and need for low fat food choices. I have discussed the need for the patient to take medications as prescribed. If the patient has negative side effects from the medication, they are to CALL the office and not abruptly discontinue the medication without discussion with a practitioner in the office. We will check labs in 3-6 months for follow up on the patient's chronic medical problem and to assure normal liver response to medications. 11/21/2015 Appointment: Pamela Gallardo WPtel: [id number] New Patient 11/21/2015 Patient Education: Patient Medication Summary Completed 11/21/2015 Patient Education: Obesity Completed 11/21/2015 Instructions Comment blood pressure is uncontrolled - i recommend pt to continue with lisinopril and to start on norvasc (amlodipine) 5mg daily - take in the evening. use sweet oil, or olive oil, or debrox ear wax drops to the plugged right ear nightly until hearing improves or until next office visit. . Hypertension - uncontrolled - the patient's medications have been modified as documented in the visit note. The patient has been counseled to cut back on salt in diet for a no added salt diet, low fat diet, start an exercise program with low weight bearing exercises and higher aerobic activity for heart health. The patient is to check blood pressure readings as an outpatient and either fax , call, or email the readings to the office next week for practitioner to review. The pt is to call for acute concerns. blood pressure is uncontrolled - i recommend pt to continue with lisinopril and to start on norvasc (amlodipine) 5mg daily - take in the evening. Cerumen impaction - -use sweet oil, or olive oil, or debrox ear wax drops to the plugged right ear nightly until hearing improves or until next office visit. Hyperlipidemia - pt has been counseled about appropriate diet, exercise, and need for low fat food choices. I have discussed the need for the patient to take medications as prescribed. If the patient has negative side effects from the medication, they are to CALL the office and not abruptly discontinue the medication without discussion with a practitioner in the office. We will check labs in 3-6 months for follow up on the patient's chronic medical problem and to assure normal liver response to medications. . Iron deficiency kcqskf-[id number] bleeding-INR has been stable-continue multivitamin with iron daily Hematuria-3+ blood in urine-check PT/INR today-culture urine . Hypertension - well controlled - continue with current medications, continue with no added salt diet. Pt has been encouraged to exercise daily. The pt has been advised to call the office if there are any acute concerns about change in blood pressure readings at home. Hyperlipidemia - pt has been counseled about appropriate diet, exercise, and need for low fat food choices. I have discussed the need for the patient to take medications as prescribed. If the patient has negative side effects from the medication, they are to CALL the office and not abruptly discontinue the medication without discussion with a practitioner in the office. We will check labs in 3-6 months for follow up on the patient's chronic medical problem and to assure normal liver response to medications. . Hypertension - well controlled - continue with current medications, continue with no added salt diet. Pt has been encouraged to exercise daily. The pt has been advised to call the office if there are any acute concerns about change in blood pressure readings at home. Hyperlipidemia - pt has been counseled about appropriate diet, exercise, and need for low fat food choices. I have discussed the need for the patient to take medications as prescribed. If the patient has negative side effects from the medication, they are to CALL the office and not abruptly discontinue the medication without discussion with a practitioner in the office. We will check labs in 3-6 months for follow up on the patient's chronic medical problem and to assure normal liver response to medications. Dr. Lincoln always kept INR close to 2.1-2.3 Decrease coumadin 5mg on Thursday and 7.5 mg on all other days. Repeat INR next Thursday morning. . Hematuria - normal cystoscopy on 03/26/16 - Pt states that Dr. Lincoln used to keep his INR between 2.1 and 2.3. Will have pt take coumadin 5mg on Thursday and 7.5mg all other days - repeat next Thursday morning. Will culture urine, if symptoms persist will order bladder US and have pt follow up with his urologist. Pt is to notify clinic if symptoms do not improve, if they worsen, or with any questions or concerns. . Hypertension - well controlled - continue with current medications, continue with no added salt diet. Pt has been encouraged to exercise daily. The pt has been advised to call the office if there are any acute concerns about change in blood pressure readings at home. Hyperlipidemia - pt has been counseled about appropriate diet, exercise, and need for low fat food choices. I have discussed the need for the patient to take medications as prescribed. If the patient has negative side effects from the medication, they are to CALL the office and not abruptly discontinue the medication without discussion with a practitioner in the office. We will check labs in 3-6 months for follow up on the patient's chronic medical problem and to assure normal liver response to medications. Chronic anticoagulation - continue with current management - check labs today. increase the coumadin to 5mg on tuesdays, and 7.5mg all other days of the week - repeat INR in two weeks. check your blood pressures at home, come by with a copy of your blood pressure readings in one month when you have your repeat appointment. . Hypertension - well controlled - continue with current medications, continue with no added salt diet. Pt has been encouraged to exercise daily. The pt has been advised to call the office if there are any acute concerns about change in blood pressure readings at home. 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 Therapeutic goal for INR is between 2.0 and 3.5. Medication changes as follows : increase the coumadin to 5mg on Tuesdays, and 7.5mg all other days of the week - repeat INR in two weeks. . Hypertension - well controlled - continue with current medications, continue with no added salt diet. Pt has been encouraged to exercise daily. The pt has been advised to call the office if there are any acute concerns about change in blood pressure readings at home. Hematuria - due to his coumadin level being above 2.3 - will decrease dose of coumadin if needed to keep INR below 2.3. Hyperlipidemia - pt has been counseled about appropriate diet, exercise, and need for low fat food choices. I have discussed the need for the patient to take medications as prescribed. If the patient has negative side effects from the medication, they are to CALL the office and not abruptly discontinue the medication without discussion with a practitioner in the office. We will check labs in 3-6 months for follow up on the patient's chronic medical problem and to assure normal liver response to medications. . Hypertension - well controlled - continue with current medications, continue with no added salt diet. Pt has been encouraged to exercise daily. The pt has been advised to call the office if there are any acute concerns about change in blood pressure readings at home. Hyperlipidemia - pt has been counseled about appropriate diet, exercise, and need for low fat food choices. I have discussed the need for the patient to take medications as prescribed. If the patient has negative side effects from the medication, they are to CALL the office and not abruptly discontinue the medication without discussion with a practitioner in the office. We will check labs in 3-6 months for follow up on the patient's chronic medical problem and to assure normal liver response to medications. Chronic anticoagulation - continue with coumadin. . Hypertension - well controlled - continue with current medications, continue with no added salt diet. Pt has been encouraged to exercise daily. The pt has been advised to call the office if there are any acute concerns about change in blood pressure readings at home. Unsteady on feet - discussed pt needs to be scheduled for physical therapy - he will talk to his and let us know who he would like to go to for physical therapy Hyperlipidemia - pt has been counseled about appropriate diet, exercise, and need for low fat food choices. I have discussed the need for the patient to take medications as prescribed. If the patient has negative side effects from the medication, they are to CALL the office and not abruptly discontinue the medication without discussion with a practitioner in the office. We will check labs in 3-6 months for follow up on the patient's chronic medical problem and to assure normal liver response to medications. Iron deficiency anemia - chronic but stable, monitor symptoms. Dr. Lincoln always kept INR close to 2.1-2.3 Decrease coumadin 5mg on Thursday and 7.5 mg on all other days. Repeat INR next Thursday morning. . Hematuria - normal cystoscopy on 03/26/16 - Pt states that Dr. Lincoln used to keep his INR between 2.1 and 2.3. Will have pt take coumadin 5mg on Thursday and 7.5mg all other days - repeat next Thursday morning. Will culture urine, if symptoms persist will order bladder US and have pt follow up with his urologist. Pt is to notify clinic if symptoms do not improve, if they worsen, or with any questions or concerns.
--- OUTSIDE RECORDS SUMMARY | 2017-09-21 12:16 | XMS REPORT | Continuity of Care Document ---
Author Author [facility] Organization [facility] Address Unknown Phone Unavailable Allergies Active Description Code Type Severity Reaction Onset Reported/Identified Relationship to Patient Clinical Status Yes NKANo Known Allergies NKA Miscellaneous Allergy Unknown N/A 01/22/2006 Medications There is no data. 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 10/06/2011 Ot 185 MALIGN NEOPL PROSTATE 10/06/2011 Ot V10.05 HX OF COLONIC MALIGNANCY 04/13/2012 Ot 401.9 HYPERTENSION NOS 04/13/2012 Ot V10.05 HX OF COLONIC MALIGNANCY 04/13/2012 Ot V10.46 HX- PROSTATIC MALIGNANCY 04/13/2012 Ot V12.51 HX-VENOUS THROMBOSIS EMBOLISM 04/13/2012 Ot V45.72 ACQRD ABSENCE INTESTINE - LARGE/SMALL 04/13/2012 Ot V58.61 ANTICOAGULANTS,LT,CURRENT USE 04/13/2012 Ot V58.69 OTH MED,LT, CURRENT USE 04/13/2012 Ot V67.1 RADIOTHERAPY FOLLOW-UP 12/14/2012 REECE WILSON MD Ot 185 MALIGN NEOPL PROSTATE 12/14/2012 REECE WILSON MD Ot V10.05 HX OF COLONIC MALIGNANCY 06/14/2013 REECE WILSON MD Ot 185 MALIGN NEOPL PROSTATE 06/14/2013 REECE WILSON MD Ot V10.05 HX OF COLONIC MALIGNANCY 09/24/2013 SVITLANA SIMMONS MD Ot 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 09/24/2013 SVITLANA SIMMONS MD Ot 401.9 HYPERTENSION NOS 09/24/2013 SVITLANA SIMMONS MD Ot 719.7 DIFFICULTY IN WALKING 09/24/2013 SVITLANA SIMMONS MD Ot V58.61 ANTICOAGULANTS,LT,CURRENT USE 09/24/2013 SVITLANA SIMMONS MD Ot V58.69 OTH MED,LT,CURRENT USE 11/29/2013 QUYEN RAMIREZ MD Ot 305.1 TOBACCO USE DISORDER 11/29/2013 QUYEN RAMIREZ MD Ot 401.9 HYPERTENSION NOS 11/29/2013 QUYEN RAMIREZ MD S Ot 562.12 DIVERTICULOSIS OF COLON WITH HEMORRHAGE 11/29/2013 QUYEN RAMIREZ MD Ot V10.05 HX OF COLONIC MALIGNANCY 11/29/2013 QUYEN RAMIREZ MD Ot V12.51 HX-VENOUS THROMBOSIS EMBOLISM 11/29/2013 QUYEN RAMIREZ MD Ot V45.72 ACQRD ABSENCE INTESTINE - LARGE/SMALL 11/29/2013 QUYEN RAMIREZ MD Ot V58.61 ANTICOAGULANTS,LT,CURRENT USE 01/01/2014 REECE WILSON MD Ot 401.9 HYPERTENSION NOS 01/01/2014 REECE WILSON MD Ot V10.05 HX OF COLONIC MALIGNANCY 01/01/2014 REECE WILSON MD Ot V10.46 HX-PROSTATIC MALIGNANCY 01/01/2014 REECE WILSON MD Ot V12.51 HX-VENOUS THROMBOSIS EMBOLISM 01/01/2014 REECE WILSON MD Ot V45.72 ACQRD ABSENCE INTESTINE - LARGE/SMALL 01/01/2014 REECE WILSON MD Ot V58.61 ANTICOAGULANTS,LT,CURRENT USE 01/01/2014 REECE WILSON MD Ot V58.69 OTH MED,LT,CURRENT USE 01/01/2014 REECE WILSON MD Ot V67.1 RADIOTHERAPY FOLLOW-UP 04/12/2014 REECE WILSON MD Ot 401.9 04/12/2014 REECE WILSON MD Ot V10.05 04/12/2014 REECE WILSON MD Ot V10.46 04/12/2014 REECE WILSON MD Ot V12.51 04/12/2014 STEVE LEYVA, EUBANKS-RUBEN Ot V45.72 04/12/2014 STEVE LEYVA, EUBANKS-RUBEN Ot V58.61 04/12/2014 STEVE LEYVA, EUBANKS-RUBEN Ot V58.69 04/12/2014 STEVE LEYVA, EUBANKS-RUBEN Ot V67.1 04/12/2014 STEVE LEYVA, EUBANKS-RUBEN Ot 401.9 04/12/2014 STEVE LEYVA, EUBANKS-RUBEN Ot V10.05 04/12/2014 STEVE LEYVA, EUBANKS-RUBEN Ot V10.46 04/12/2014 STEVE LEYVA, EUBANKS-RUBEN Ot V12.51 04/12/2014 STEVE LEYVA, EUBANKS-RUBEN Ot V45.72 04/12/2014 STEVE LEYVA, EUBANKS-RUBEN Ot V58.61 04/12/2014 STEVE LEYVA, EUBANKS-RUBEN Ot V58.69 04/12/2014 STEVE LEYVA, EUBANKS-RUBEN Ot V67.1 04/17/2014 STEVE LEYVA, EUBANKS-RUBEN Ot 401.9 04/17/2014 STEVE LEYVA, EUBANKS-RUBEN Ot V10.05 04/17/2014 STEVE LEYVA, EUBANKS-RUBEN Ot V10.46 04/17/2014 STEVE LEYVA, EUBANKS-RUBEN Ot V12.51 04/17/2014 STEVE LEYVA, EUBANKS-RUBEN Ot V45.72 04/17/2014 STEVE LEYVA, EUBANKS-RUBEN Ot V58.61 04/17/2014 STEVE LEYVA, EUBANKS-RUBEN Ot V58.69 04/17/2014 STEVE LEYVA, EUBANKS-RUBEN Ot V67.1 04/18/2014 STEVE LEYVA, EUBANKS-RUBEN Ot 401.9 04/18/2014 STEVE LEYVA, EUBANKS-RUBEN Ot V10.05 04/18/2014 STEVE LEYVA, EUBANKS-RUBEN Ot V10.46 04/18/2014 STEVE LEYVA, EUBANKS-RUBEN Ot V12.51 04/18/2014 STEVE LEYVA, EUBANKS-RUBEN Ot V45.72 04/18/2014 STEVE LEYVA, EUBANKS-RUBEN Ot V58.61 04/18/2014 STEVE LEYVA, EUBANKS-RUBEN Ot V58.69 04/18/2014 STEVE LEYVA, EUBANKS-RUBEN Ot V67.1 06/01/2014 STEVE LEYVA, EUBANKS-RUBEN Ot 401.9 06/01/2014 STEVE LEYVA, EUBANKS-RUBEN Ot V10.05 06/01/2014 STEVE LEYVA, REECE Ot V10.46 06/01/2014 STEVE LEYVA, REECE Ot V12.51 06/01/2014 STEVE LEYVA, REECE Ot V45.72 06/01/2014 STEVE LEYVA, REECE Ot V58.61 06/01/2014 STEVE LEYVA, REECE Ot V58.69 06/01/2014 STEVE LEYVA, REECE Ot V67.1 06/01/2014 STEVE LEYVA, REECE Ot 401.9 06/01/2014 STEVE LEYVA, REECE Ot V10.05 06/01/2014 STEVE LEYVA, REECE Ot V10.46 06/01/2014 STEVE LEYVA, REECE Ot V12.51 06/01/2014 STEVE LEYVA, REECE Ot V45.72 06/01/2014 STEVE LEYVA, REECE Ot V58.61 06/01/2014 STEVE LEYVA, REECE Ot V58.69 06/01/2014 STEVE LEYVA, REECE Ot V67.1 07/16/2014 STEVE LEYVA, REECE Ot 401.9 HYPERTENSION NOS 07/16/2014 STEVE LEYVA, REECE Ot V10.05 HX OF COLONIC MALIGNANCY 07/16/2014 STEVE LEYVA, REECE Ot V10.46 HX-PROSTATIC MALIGNANCY 07/16/2014 STEVE LEYVA, REECE Ot V12.51 HX-VENOUS THROMBOSIS EMBOLISM 07/16/2014 STEVE LEYVA, REECE Ot V45.72 ACQRD ABSENCE INTESTINE - LARGE/SMALL 07/16/2014 STEVE LEYVA, REECE Ot V58.61 ANTICOAGULANTS,LT,CURRENT USE 07/16/2014 STEVE LEYVA, REECE Ot V58.69 OTH MED,LT,CURRENT USE 07/16/2014 STEVE LEYVA, REECE Ot V67.1 RADIOTHERAPY FOLLOW-UP 09/03/2014 QUYEN RAMIREZ MD Ot 305.1 TOBACCO USE DISORDER 09/03/2014 QUYEN RAMRIEZ MD Ot 401.9 HYPERTENSION NOS 09/03/2014 JAMES LEYVA, QUYEN Maravilla Ot 562.12 DIVERTICULOSIS OF COLON WITH HEMORRHAGE 09/03/2014 QUYEN RAMIREZ MD Ot 780.2 SYNCOPE AND COLLAPSE 09/03/2014 QUYEN RAMIREZ MD S Ot V10.05 HX OF COLONIC MALIGNANCY 09/03/2014 QUYEN RAMIREZ MD Ot V12.51 HX-VENOUS THROMBOSIS EMBOLISM 09/03/2014 QUYEN RAMIREZ MD Ot V15.88 HISTORY OF FALL 09/03/2014 QUYEN RAMIREZ MD Ot V45.72 ACQRD ABSENCE INTESTINE - LARGE/SMALL 09/03/2014 QUYEN RAMIREZ MD Ot V58.61 ANTICOAGULANTS,LT,CURRENT USE 09/20/2014 QUYEN RAMIREZ MD S Ot 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 09/20/2014 JAMES LEYVA, QUYEN S Ot 275.2 DIS MAGNESIUM METABOLISM 09/20/2014 QUYEN RAMIREZ MD Ot 276.51 DEHYDRATION 09/20/2014 QUYEN RAMIREZ MD Ot 276.8 HYPOPOTASSEMIA 09/20/2014 QUYEN RAMIREZ MD S Ot 300.00 ANXIETY STATE NOS 09/20/2014 JAMES LEYVA, QUYEN S Ot 305.1 TOBACCO USE DISORDER 09/20/2014 QUYEN RAMIREZ MD S Ot 338.29 OTHER CHRONIC PAIN 09/20/2014 QUYEN RAMIREZ MD S Ot 401.9 HYPERTENSION NOS 09/20/2014 JAMES LEYVA, QUYEN S Ot 410.91 ACUTE MYOCARD INFARCT,UNSPEC SITE,INITIA 09/20/2014 JAMES LEYVA, QUYEN S Ot 414.01 CORONARY ATHEROSCLEROSIS OF [place] CORON 09/20/2014 QUYEN RAMIREZ MD S Ot 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 09/20/2014 QUYEN RAMIREZ MD S Ot 530.11 REFLUX ESOPHAGITIS 09/20/2014 QUYEN RAMIREZ MD S Ot 530.3 ESOPHAGEAL STRICTURE 09/20/2014 QUYEN RAMIREZ MD S Ot 560.1 PARALYTIC ILEUS 09/20/2014 QUYEN RAMIREZ MD S Ot 562.12 DIVERTICULOSIS OF COLON WITH HEMORRHAGE 09/20/2014 QUYEN RAMIREZ MD S Ot 573.8 LIVER DISORDERS NEC 09/20/2014 QUYEN RAMIREZ MD S Ot 584.9 ACUTE RENAL FAILURE, UNSPECIFIED 09/20/2014 QUYEN RAMIREZ MD S Ot 719.40 JOINT PAIN-UNSPEC 09/20/2014 QUYEN RAMIREZ MD S Ot 724.5 BACKACHE NOS 09/20/2014 JAMES LEYVA, QUYEN Maravilla Ot 997.1 SURG COMPL-HEART 09/20/2014 JAMES LEYVA, QUYEN Maravilla Ot 997.49 OTHER DIGESTIVE SYSTEM COMPLICATIONS 09/20/2014 JAMES LEYVA, QUYEN Maravilla Ot V10.05 HX OF COLONIC MALIGNANCY 10/03/2014 STEVE LEYVA, REECE Ot 401.9 10/03/2014 STEVE LEYVA, CHA-RUBEN Ot V10.05 10/03/2014 STEVE LEYVA, CHA-RUBEN Ot V10.46 10/03/2014 STEVE LEYVA, CHA-RUBEN Ot V12.51 10/03/2014 STEVE LEYVA, CHA-RUBEN Ot V45.72 10/03/2014 STEVE LEYVA, CHA-RUBEN Ot V58.61 10/03/2014 STEVE LEYVA, CHA-RUBEN Ot V58.69 10/03/2014 STEVE LEYVA, CHA-RUBEN Ot V67.1 11/07/2014 STEVE LEYVA, CHA-RUBEN Ot 401.9 11/07/2014 STEVE LEYVA, CHA-RUBEN Ot V10.05 11/07/2014 STEVE LEYVA, CHA-RUBEN Ot V10.46 11/07/2014 STEVE LEYVA, CHA-RUBEN Ot V12.51 11/07/2014 STEVE LEYVA, CHA-RUBEN Ot V45.72 11/07/2014 STEVE LEYVA, CHA-RUBEN Ot V58.61 11/07/2014 STEVE LEYVA, CHA-RUBEN Ot V58.69 11/07/2014 STEVE LEYVA, CHA-RUBEN Ot V67.1 11/08/2014 STEVE LEYVA, CHA-RUBEN Ot 401.9 11/08/2014 STEVE LEYVA, CHA-RUBEN Ot V10.05 11/08/2014 STEVE LEYVA, CHA-RUBEN Ot V10.46 11/08/2014 STEVE LEYVA, CHA-RUBEN Ot V12.51 11/08/2014 STEVE LEYVA, CHA-RUBEN Ot V45.72 11/08/2014 STEVE LEYVA, HCA-RUBEN Ot V58.61 11/08/2014 STEVE LEYVA, CHA-RUBEN Ot V58.69 11/08/2014 STEVE LEYVA, CHA-RUBEN Ot V67.1 11/22/2014 STEVE LEYVA, CHA-RUBEN Ot 401.9 11/22/2014 STEVE LEYVA, CHA-RUBEN Ot V10.05 11/22/2014 STEVE LEYVA, HCA-RUBEN Ot V10.46 11/22/2014 STEVE LEYVA, CHA-RUBEN Ot V12.51 11/22/2014 STEVE LEYVA, REECE Ot V45.72 11/22/2014 STEVE LEYVA, REECE Ot V58.61 11/22/2014 STEVE LEYVA, REECE Ot V58.69 11/22/2014 STEVE LEYVA, REECE Ot V67.1 11/23/2014 OTHER, UNLISTED Ot V45.82 11/23/2014 OTHER, UNLISTED Ot V57.89 01/02/2015 STEVE LEYVA, REECE Ot 401.9 01/02/2015 STEVE LEYVA, REECE Ot V10.05 01/02/2015 STEVE LEYVA, REECE Ot V10.46 01/02/2015 STEVE LEYVA, REECE Ot V12.51 01/02/2015 STEVE LEYVA, REECE Ot V45.72 01/02/2015 STEVE LEYVA, REECE Ot V58.61 01/02/2015 STEVE LEYVA, REECE Ot V58.69 01/02/2015 STEVE LEYVA, REECE Ot V67.1 01/02/2015 OTHER, UNLISTED Ot V45.82 01/02/2015 OTHER, UNLISTED Ot V57.89 01/03/2015 STEVE LEYVA, REECE Ot 401.9 HYPERTENSION NOS 01/03/2015 STEVE LEYVA, REECE Ot V10.05 HX OF COLONIC MALIGNANCY 01/03/2015 STEVE LEYVA, REECE Ot V10.46 HX-PROSTATIC MALIGNANCY 01/03/2015 STEVE LEYVA, REECE Ot V12.51 HX-VENOUS THROMBOSIS EMBOLISM 01/03/2015 STEVE LEYVA, REECE Ot V45.72 ACQRD ABSENCE INTESTINE - LARGE/SMALL 01/03/2015 STEVE LEYVA, REECE Ot V58.61 ANTICOAGULANTS,LT,CURRENT USE 01/03/2015 STEVE LEYVA, REECE Ot V58.69 OTH MED,LT,CURRENT USE 01/03/2015 STEVE LEYVA, REECE Ot V67.1 RADIOTHERAPY FOLLOW-UP 01/03/2015 OTHER, UNLISTED Ot V45.82 PERCUTANEOUS TRANSLUM CORON ANGIOPLASTY 01/03/2015 OTHER, UNLISTED Ot V57.89 REHABILITATION PROC NEC 01/06/2015 OTHER, UNLISTED Ot V45.82 01/06/2015 OTHER, UNLISTED Ot V57.89 01/09/2015 OTHER, UNLISTED Ot V45.82 01/09/2015 OTHER, UNLISTED Ot V57.89 01/09/2015 OTHER, UNLISTED Ot V45.82 01/09/2015 OTHER, UNLISTED Ot V57.89 01/09/2015 OTHER, UNLISTED Ot V45.82 01/09/2015 OTHER, UNLISTED Ot V57.89 01/31/2015 OTHER, UNLISTED Ot V45.82 01/31/2015 OTHER, UNLISTED Ot V57.89 02/26/2015 OTHER, UNLISTED Ot Z48.812 02/26/2015 OTHER, UNLISTED Ot Z95.5 03/06/2015 OTHER, UNLISTED Ot Z48.812 03/06/2015 OTHER, UNLISTED Ot Z95.5 04/05/2015 OTHER, UNLISTED Ot Z48.812 ENCNTR FOR SURGICAL AFTCR FOLLOWING SURG 04/05/2015 OTHER, UNLISTED Ot Z95.5 PRESENCE OF CORONARY ANGIOPLASTY IMPLANT 04/27/2015 Ot F17.290 NICOTINE DEPENDENCE, OTHER TOBACCO PRODU 04/27/2015 Ot S01.512A LACERATION WITHOUT FOREIGN BODY OF ORAL 04/27/2015 Ot X58.XXXA EXPOSURE TO OTHER SPECIFIED FACTORS, INI 04/27/[address] IN [facility] NON-INSTITUT (PRIVATE 04/27/2015 Ot Y99.8 OTHER EXTERNAL CAUSE STATUS 04/27/2015 Ot Z79.01 HALFWAY ( CURRENT) USE OF ANTICOAGULANT 06/26/2015 STEVE LEYVA, REECE Ot Z08 06/26/2015 TSEVE LEYVA, REECE Ot Z85.038 06/26/2015 STEVE LEYVA, CHA-RUBEN Ot Z85.46 07/04/2015 STEVE LEYVA, CHA-RUBEN Ot Z08 07/04/2015 STEVE LEYVA, CHA-RUBEN Ot Z85.038 07/04/2015 STEVE LEYVA, CHA-RUBEN Ot Z85.46 08/12/2015 STEVE LEYVA, REECE Ot D64.9 ANEMIA, UNSPECIFIED 08/12/2015 STEVE LEYVA, REECE Ot Z08 ENCNTR FOR FOLLOW-UP EXAM AFTER TRTMT FO 08/12/2015 REECE WILSON MD Ot 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 08/12/2015 REECE WILSON MD Ot Z85.038 PERSONAL HISTORY OF MALIGNANT NEOPLASM O 08/12/2015 REECE WILSON MD Ot Z85.46 PERSONAL HISTORY OF MALIGNANT NEOPLASM O 08/12/2015 REECE WILSON MD Ot Z86.718 PERSONAL HISTORY OF OTHER VENOUS THROMBO 11/16/2015 REECE WILSON MD Ot Z08 ENCNTR FOR FOLLOW-UP EXAM AFTER TRTMT FO 11/16/2015 REECE WILSON MD Ot Z85.038 PERSONAL HISTORY OF MALIGNANT NEOPLASM O 11/16/2015 REECE WILSON MD, Ot Z85.46 PERSONAL HISTORY OF MALIGNANT NEOPLASM O 11/22/2015 Ot 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 11/22/2015 Ot 562.10 DIVERTICULOSIS COLON (W/O MENT OF HEMORR 11/22/2015 Ot 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 11/22/2015 Ot V45.72 ACQRD ABSENCE INTESTINE - LARGE/SMALL 11/22/2015 Ot V58.61 ANTICOAGULANTS,LT,CURRENT USE 11/22/2015 Ot V76.51 SCREEN MAL NEOP-COLON 11/22/2015 Ot 553.1 UMBILICAL HERNIA 11/22/2015 Ot V72.81 EXAM-PRE- OPERATIVE CARDIOVASCULAR 11/22/2015 Ot V74.8 SCREEN- BACTERIAL DIS NEC 11/22/2015 PETER HARDY MD Ot V72.84 EXAM PRE-OPERATIVE NOS 11/22/2015 HAYLEY LEYVA, PETER Ot 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 11/22/2015 PETER HARDY MD Ot 455.0 INT HEMORRHOID W/O COMPL 11/22/2015 PETER HARDY MD Ot 455.3 EXT HEMORRHOID W/O COMPL 11/22/2015 PETER HARDY MD Ot 562.10 DIVERTICULOSIS COLON (W/O MENT OF HEMORR 11/22/2015 PETER HARDY MD Ot V10.05 HX OF COLONIC MALIGNANCY 11/22/2015 PETER HARDY MD Ot V58.61 ANTICOAGULANTS,LT,CURRENT USE 11/22/2015 PETER HARDY MD Ot V58.69 OTH MED,LT,CURRENT USE 11/22/2015 TROY LEYVA, SVITLANA Salcedo Ot 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 11/22/2015 OTHER, UNLISTED Ot Z48.812 ENCNTR FOR SURGICAL AFTCR FOLLOWING SURG 11/22/2015 OTHER, UNLISTED Ot Z95.5 PRESENCE OF CORONARY ANGIOPLASTY IMPLANT 11/22/2015 REECE WILSON MD, Ot Z08 ENCNTR FOR FOLLOW-UP EXAM AFTER TRTMT FO 11/22/2015 REECE WILSON MD, Ot Z85.038 PERSONAL HISTORY OF MALIGNANT NEOPLASM O 11/22/2015 REECE WILSON MD, Ot Z85.46 PERSONAL HISTORY OF MALIGNANT NEOPLASM O 12/06/2015 REECE WILSON MD, Ot Z08 ENCNTR FOR FOLLOW-UP EXAM AFTER TRTMT FO 12/06/2015 REECE WILSON MD, Ot Z85.038 PERSONAL HISTORY OF MALIGNANT NEOPLASM O 12/06/2015 REECE WILSON MD, Ot Z85.46 PERSONAL HISTORY OF MALIGNANT NEOPLASM O 12/27/2015 JOSE ALEJANDRO DONALDSON MD Ot E78.2 MIXED HYPERLIPIDEMIA 12/27/2015 JOSE ALEJANDRO DONALDSON MD Ot I10 ESSENTIAL (PRIMARY) HYPERTENSION 12/27/2015 JOSE ALEJANDRO DONALDSON MD Ot Z79.01 HALFWAY (CURRENT) USE OF ANTICOAGULANT 01/02/2016 REECE WILSON MD, Ot Z08 ENCNTR FOR FOLLOW-UP EXAM AFTER TRTMT FO 01/02/2016 REECE WILSON MD, Ot Z85.038 PERSONAL HISTORY OF MALIGNANT NEOPLASM O 01/02/2016 REECE WILSON MD, Ot Z85.46 PERSONAL HISTORY OF MALIGNANT NEOPLASM O 01/27/2016 REECE WILSON MD Ot D64.9 ANEMIA, UNSPECIFIED 01/27/2016 REECE WILSON MD, Ot Z08 ENCNTR FOR FOLLOW-UP EXAM AFTER TRTMT FO 01/27/2016 REECE WILSON MD, Ot 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 01/27/2016 REECE WILSON MD, Ot Z85.038 PERSONAL HISTORY OF MALIGNANT NEOPLASM O 01/27/2016 REECE WILSON MD, Ot Z85.46 PERSONAL HISTORY OF MALIGNANT NEOPLASM O 01/27/2016 REECE WILSON MD, Ot Z86.718 PERSONAL HISTORY OF OTHER VENOUS THROMBO 01/28/2016 REECE WILSON MD, Ot D64.9 ANEMIA, UNSPECIFIED 01/28/2016 REECE WILSON MD, Ot Z08 ENCNTR FOR FOLLOW-UP EXAM AFTER TRTMT FO 01/28/2016 REECE WILSON MD, Ot 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 01/28/2016 REECE WILSON MD, Ot Z85.038 PERSONAL HISTORY OF MALIGNANT NEOPLASM O 01/28/2016 REECE WILSON MD, Ot Z85.46 PERSONAL HISTORY OF MALIGNANT NEOPLASM O 01/28/2016 REECE WILSON MD, Ot Z86.718 PERSONAL HISTORY OF OTHER VENOUS THROMBO 02/20/2016 JOSE ALEJANDRO DONALDSON MD Ot E78.2 MIXED HYPERLIPIDEMIA 02/20/2016 JOSE ALEJANDRO DONALDSON MD Ot I10 ESSENTIAL (PRIMARY) HYPERTENSION 02/20/2016 JOSE ALEJANDRO DONALDSON MD Ot Z79.01 HALFWAY (CURRENT) USE OF ANTICOAGULANT 02/21/2016 JOSE ALEJANDRO DONALDSON MD, Ot E78.2 MIXED HYPERLIPIDEMIA 02/21/2016 JOSE ALEJANDRO DONALDSON MD Ot I10 ESSENTIAL (PRIMARY) HYPERTENSION 02/21/2016 JOSE ALEJANDRO DONALDSON MD, Ot Z79.01 HALFWAY (CURRENT) USE OF ANTICOAGULANT 02/21/2016 TJ FLOWER APRN Ot F17.290 NICOTINE DEPENDENCE, OTHER TOBACCO PRODU 02/21/2016 TJ FLOWER APRN Ot I10 ESSENTIAL (PRIMARY) HYPERTENSION 02/21/2016 TJ FLOWER APRN Ot M19.071 PRIMARY OSTEOARTHRITIS, RIGHT ANKLE AND 02/21/2016 TJ FLOWER APRN Ot M77.31 CALCANEAL SPUR, RIGHT FOOT 02/21/2016 TJ FLOWER APRN Ot S92.424A NONDISP FX OF DISTAL PHALANX OF RIGHT GR 02/21/2016 TJ FLOWER APRN Ot S99.922A UNSPECIFIED INJURY OF LEFT FOOT, INITIAL 02/21/2016 TJ FLOWER APRN Ot W20.8XXA OTH CAUSE OF STRIKE BY THROWN, PROJECTED 02/21/2016 TJ FLOWER APRN Ot Y92.[address] IN [facility] NON-INSTITUT (PRIVATE 02/21/2016 TJ FLOWER APRN Ot Y93.9 ACTIVITY, UNSPECIFIED 02/21/2016 TJ FLOWER APRN Ot Y99.8 OTHER EXTERNAL CAUSE STATUS 02/21/2016 TJ FLOWER APRN Ot 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 02/21/2016 TJ FLOWER APRN Ot 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 02/21/2016 TJ FLOWER APRN Ot Z86.718 PERSONAL HISTORY OF OTHER VENOUS THROMBO 02/22/2016 TJ FLOWER APRN Ot F17.290 NICOTINE DEPENDENCE, OTHER TOBACCO PRODU 02/22/2016 TJ FLOWER APRN Ot I10 ESSENTIAL (PRIMARY) HYPERTENSION 02/22/2016 TJ FLOWER APRN Ot M19.071 PRIMARY OSTEOARTHRITIS, RIGHT ANKLE AND 02/22/2016 TJ FLOWER APRN Ot M77.31 CALCANEAL SPUR, RIGHT FOOT 02/22/2016 TJ FLOWER APRN Ot S92.424A NONDISP FX OF DISTAL PHALANX OF RIGHT GR 02/22/2016 TJ FLOWER APRN Ot S99.922A UNSPECIFIED INJURY OF LEFT FOOT, INITIAL 02/22/2016 TJ FLOWER APRN Ot W20.8XXA OTH CAUSE OF STRIKE BY THROWN, PROJECTED 02/22/2016 TJ FLOWER APRN Ot Y92.[address] [facility] [address] IN [facility] 02/22/2016 TJ FLOWER APRN Ot Y93.9 ACTIVITY, UNSPECIFIED 02/22/2016 TJ FLOWER APRN Ot Y99.8 OTHER EXTERNAL CAUSE STATUS 02/22/2016 TJ FLOWER APRN Ot 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 02/22/2016 TJ FLOWER APRN Ot Z79.899 OTHER HALFWAY (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 THERAPY 02/22/2016 TJ FLOWER APRN Ot Z86.718 PERSONAL HISTORY OF OTHER VENOUS THROMBO 02/22/2016 Ot 553.1 UMBILICAL HERNIA 02/22/2016 Ot V72.81 EXAM-PRE- OPERATIVE CARDIOVASCULAR 02/22/2016 Ot V74.8 SCREEN- BACTERIAL DIS NEC 02/22/2016 PETER HARDY MD Ot V72.84 EXAM PRE-OPERATIVE NOS 02/22/2016 HAYLEY LEYVA, PETER Ot 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 02/22/2016 PETER HARDY MD Ot 455.0 INT HEMORRHOID W/O COMPL 02/22/2016 PETER HARDY MD Ot 455.3 EXT HEMORRHOID W/O COMPL 02/22/2016 PETER HARDY MD Ot 562.10 DIVERTICULOSIS COLON (W/O MENT OF HEMORR 02/22/2016 PETER HARDY MD Ot V10.05 HX OF COLONIC MALIGNANCY 02/22/2016 PETER HARDY MD Ot V58.61 ANTICOAGULANTS,LT,CURRENT USE 02/22/2016 PETER HARDY MD, Ot V58.69 OTH MED,LT,CURRENT USE 02/22/2016 SVITLANA SIMMONS MD Ot 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 02/22/2016 OTHER, UNLISTED Ot Z48.812 ENCNTR FOR SURGICAL AFTCR FOLLOWING SURG 02/22/2016 OTHER, UNLISTED Ot Z95.5 PRESENCE OF CORONARY ANGIOPLASTY IMPLANT 02/22/2016 REECE WILSON MD, Ot Z08 ENCNTR FOR FOLLOW-UP EXAM AFTER TRTMT FO 02/22/2016 REECE WILSON MD Ot Z85.038 PERSONAL HISTORY OF MALIGNANT NEOPLASM O 02/22/2016 REECE WILSON MD Ot Z85.46 PERSONAL HISTORY OF MALIGNANT NEOPLASM O 02/22/2016 JOSE ALEJANDRO DONALDSON MD Ot E78.2 MIXED HYPERLIPIDEMIA 02/22/2016 JOSE ALEJANDRO DONALDSON MD Ot I10 ESSENTIAL (PRIMARY) HYPERTENSION 02/22/2016 JOSE ALEJANDRO DONALDSON MD Ot Z79.01 HALFWAY (CURRENT) USE OF ANTICOAGULANT 02/27/2016 TJ FLOWER APRN Ot F17.290 NICOTINE DEPENDENCE, OTHER TOBACCO PRODU 02/27/2016 TJ FLOWER APRN Ot I10 ESSENTIAL (PRIMARY) HYPERTENSION 02/27/2016 TJ FLOWER APRN Ot M19.071 PRIMARY OSTEOARTHRITIS, RIGHT ANKLE AND 02/27/2016 TJ FLOWER APRN Ot M77.31 CALCANEAL SPUR, RIGHT FOOT 02/27/2016 TJ FLOWER APRN Ot S92.424A NONDISP FX OF DISTAL PHALANX OF RIGHT GR 02/27/2016 TJ FLOWER APRN Ot S99.922A UNSPECIFIED INJURY OF LEFT FOOT, INITIAL 02/27/2016 TJ FLOWER APRN Ot W20.8XXA OTH CAUSE OF STRIKE BY THROWN, PROJECTED 02/27/2016 TJ FLOWER APRN Ot Y92.009 [facility] PL[facility] IN [facility] NON-INSTITUT (PRIVATE 02/27/2016 TJ FLOWER APRN Ot Y93.9 ACTIVITY, UNSPECIFIED 02/27/2016 TJ FLOWER APRN Ot Y99.8 OTHER EXTERNAL CAUSE STATUS 02/27/2016 TJ FLOWER APRN Ot 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 02/27/2016 TJ FLOWER APRN Ot Z79.899 OTHER HALFWAY (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 THERAPY 02/27/2016 TJ FLOWER APRN Ot Z86.718 PERSONAL HISTORY OF OTHER VENOUS THROMBO 05/14/2016 REECE WILSON MD, Ot Z08 ENCNTR FOR FOLLOW-UP EXAM AFTER TRTMT FO 05/14/2016 REECE WILSON MD Ot Z85.038 PERSONAL HISTORY OF MALIGNANT NEOPLASM O 05/14/2016 REECE WILSON MD Ot Z85.46 PERSONAL HISTORY OF MALIGNANT NEOPLASM O 06/02/2016 REECE WILSON MD, Ot Z08 ENCNTR FOR FOLLOW-UP EXAM AFTER TRTMT FO 06/02/2016 REECE WILSON MD Ot Z85.038 PERSONAL HISTORY OF MALIGNANT NEOPLASM O 06/02/2016 REECE WILSON MD Ot Z85.46 PERSONAL HISTORY OF MALIGNANT NEOPLASM O 06/05/2016 REECE WILSON MD, Ot Z08 ENCNTR FOR FOLLOW-UP EXAM AFTER TRTMT FO 06/05/2016 REECE WILSON MD Ot Z85.038 PERSONAL HISTORY OF MALIGNANT NEOPLASM O 06/05/2016 REECE WILSON MD Ot Z85.46 PERSONAL HISTORY OF MALIGNANT NEOPLASM O 07/16/2016 REECE WILSON MD, Ot Z08 ENCNTR FOR FOLLOW-UP EXAM AFTER TRTMT FO 07/16/2016 REECE WILSON MD Ot Z85.038 PERSONAL HISTORY OF MALIGNANT NEOPLASM O 07/16/2016 REECE WILSON MD Ot Z85.46 PERSONAL HISTORY OF MALIGNANT NEOPLASM O 11/12/2016 REECE WILSON MD Ot C79.51 SECONDARY MALIGNANT NEOPLASM OF BONE 11/12/2016 REECE WILSON MD Ot D64.9 ANEMIA, UNSPECIFIED 11/12/2016 REECE WILSON MD Ot E83.52 HYPERCALCEMIA 11/12/2016 REECE WILSON MD, Ot Z08 ENCNTR FOR FOLLOW-UP EXAM AFTER TRTMT FO 11/12/2016 REECE WILSON MD, Ot 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 11/12/2016 REECE WILSON MD Ot Z79.899 OTHER HALFWAY (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 THERAPY 11/12/2016 REECE WILSON MD, Ot Z85.038 PERSONAL HISTORY OF MALIGNANT NEOPLASM O 11/12/2016 REECE WILSON MD Ot Z85.46 PERSONAL HISTORY OF MALIGNANT NEOPLASM O 11/12/2016 REECE WILSON MD, Ot Z86.718 PERSONAL HISTORY OF OTHER VENOUS THROMBO 12/01/2016 REECE WILSON MD, Ot C79.51 SECONDARY MALIGNANT NEOPLASM OF BONE 12/01/2016 REECE WILSON MD, Ot D64.9 ANEMIA, UNSPECIFIED 12/01/2016 REECE WILSON MD Ot E83.52 HYPERCALCEMIA 12/01/2016 REECE WILSON MD, Ot Z08 ENCNTR FOR FOLLOW-UP EXAM AFTER TRTMT FO 12/01/2016 REECE WILSON MD, Ot Z79.01 HALFWAY (CURRENT) USE OF ANTICOAGULANT 12/01/2016 REECE WILSON MD Ot Z79.899 OTHER HALFWAY (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 THERAPY 12/01/2016 REECE WILSON MD Ot Z85.038 PERSONAL HISTORY OF MALIGNANT NEOPLASM O 12/01/2016 REECE WILSON MD, Ot Z85.46 PERSONAL HISTORY OF MALIGNANT NEOPLASM O 12/01/2016 REECE WILSON MD Ot Z86.718 PERSONAL HISTORY OF OTHER VENOUS THROMBO 12/09/2016 REECE WILSON MD Ot C79.51 SECONDARY MALIGNANT NEOPLASM OF BONE 12/09/2016 REECE WILSON MD, Ot D64.9 ANEMIA, UNSPECIFIED 12/09/2016 REECE WILSON MD Ot E83.52 HYPERCALCEMIA 12/09/2016 REECE WILSON MD Ot Z08 ENCNTR FOR FOLLOW-UP EXAM AFTER TRTMT FO 12/09/2016 REECE WILSON MD Ot 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 12/09/2016 REECE WILSON MD Ot Z79.899 OTHER HALFWAY (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 THERAPY 12/09/2016 REECE WILSON MD Ot Z85.038 PERSONAL HISTORY OF MALIGNANT NEOPLASM O 12/09/2016 REECE WILSON MD Ot Z85.46 PERSONAL HISTORY OF MALIGNANT NEOPLASM O 12/09/2016 REECE WILSON MD Ot Z86.718 PERSONAL HISTORY OF OTHER VENOUS THROMBO 12/22/2016 Ot 553.1 UMBILICAL HERNIA 12/22/2016 Ot V72.81 EXAM-PRE- OPERATIVE CARDIOVASCULAR 12/22/2016 Ot V74.8 SCREEN- BACTERIAL DIS NEC 12/22/2016 PETER HARDY MD, Ot V72.84 EXAM PRE-OPERATIVE NOS 12/22/2016 PETER HARDY MD Ot 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 12/22/2016 PETER HARDY MD Ot 455.0 INT HEMORRHOID W/O COMPL 12/22/2016 PETER HARDY MD Ot 455.3 EXT HEMORRHOID W/O COMPL 12/22/2016 EPTER HARDY MD Ot 562.10 DIVERTICULOSIS COLON (W/O MENT OF HEMORR 12/22/2016 PETER HARDY MD Ot V10.05 HX OF COLONIC MALIGNANCY 12/22/2016 PETER HARDY MD Ot V58.61 ANTICOAGULANTS,LT,CURRENT USE 12/22/2016 PETER HARDY MD, Ot V58.69 OTH MED,LT,CURRENT USE 12/22/2016 SVITLANA SIMMONS MD Ot 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 12/22/2016 OTHER, UNLISTED Ot Z48.812 ENCNTR FOR SURGICAL AFTCR FOLLOWING SURG 12/22/2016 OTHER, UNLISTED Ot Z95.5 PRESENCE OF CORONARY ANGIOPLASTY IMPLANT 12/22/2016 JOSE ALEJANDRO DONALDSON MD Ot E78.2 MIXED HYPERLIPIDEMIA 12/22/2016 JOSE ALEJANDRO DONALDSON MD Ot I10 ESSENTIAL (PRIMARY) HYPERTENSION 12/22/2016 JOSE ALEJANDRO DONALDSON MD Ot 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 12/22/2016 REECE WILSON MD Ot C79.51 SECONDARY MALIGNANT NEOPLASM OF BONE 12/22/2016 REECE WILSON MD Ot D64.9 ANEMIA, UNSPECIFIED 12/22/2016 REECE WILSON MD Ot E83.52 HYPERCALCEMIA 12/22/2016 REECE WILSON MD Ot Z08 ENCNTR FOR FOLLOW-UP EXAM AFTER TRTMT FO 12/22/2016 REECE WILSON MD Ot Z79.01 HALFWAY (CURRENT) USE OF ANTICOAGULANT 12/22/2016 REECE WILSON MD Ot Z79.899 OTHER HALFWAY (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 THERAPY 12/22/2016 REECE WILSON MD Ot Z85.038 PERSONAL HISTORY OF MALIGNANT NEOPLASM O 12/22/2016 REECE WILSON MD Ot Z85.46 PERSONAL HISTORY OF MALIGNANT NEOPLASM O 12/22/2016 REECE WILSON MD Ot Z86.718 PERSONAL HISTORY OF OTHER VENOUS THROMBO 12/22/2016 TJ FLOWER APRN Ot F41.9 ANXIETY DISORDER, UNSPECIFIED 12/22/2016 TJ FLOWER APRN Ot I10 ESSENTIAL (PRIMARY) HYPERTENSION 12/22/2016 TJ FLOWER APRN Ot M25.522 PAIN IN LEFT ELBOW 12/22/2016 TJ FLOWER APRN Ot S51.012A LACERATION WITHOUT FOREIGN BODY OF LEFT 12/22/2016 TJ FLOWER APRN Ot W22.03XA WALKED INTO FURNITURE, INITIAL ENCOUNTER 12/22/2016 TJ FLOWER APRN Ot Z79.01 HALFWAY (CURRENT) USE OF ANTICOAGULANT 12/22/2016 TJ FLOWER APRN Ot Z80.0 FAMILY HISTORY OF MALIGNANT NEOPLASM OF 12/22/2016 TJ FLOWER APRN Ot Z85.038 PERSONAL HISTORY OF MALIGNANT NEOPLASM O 12/22/2016 TJ FLOWER APRN Ot Z87.19 PERSONAL HISTORY OF OTHER DISEASES OF TH 12/28/2016 TJ FLOWER APRN Ot F41.9 ANXIETY DISORDER, UNSPECIFIED 12/28/2016 TJ FLOWER APRN Ot I10 ESSENTIAL (PRIMARY) HYPERTENSION 12/28/2016 TJ FLOWER APRN Ot M25.522 PAIN IN LEFT ELBOW 12/28/2016 TJ FLOWER APRN Ot S51.012A LACERATION WITHOUT FOREIGN BODY OF LEFT 12/28/2016 TJ FLOWER APRN Ot W22.03XA WALKED INTO FURNITURE, INITIAL ENCOUNTER 12/28/2016 TJ FLOWER APRN Ot 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 12/28/2016 TJ FLOWER APRN Ot Z80.0 FAMILY HISTORY OF MALIGNANT NEOPLASM OF 12/28/2016 TJ FLOWER APRN Ot Z85.038 PERSONAL HISTORY OF MALIGNANT NEOPLASM O 12/28/2016 TJ FLOWER APRN Ot Z87.19 PERSONAL HISTORY OF OTHER DISEASES OF TH 01/03/2017 REECE WILSON MD Ot C79.51 SECONDARY MALIGNANT NEOPLASM OF BONE 01/03/2017 REECE WILSON MD Ot D64.9 ANEMIA, UNSPECIFIED 01/03/2017 REECE WILSON MD Ot E83.52 HYPERCALCEMIA 01/03/2017 REECE WILSON MD, Ot Z08 ENCNTR FOR FOLLOW-UP EXAM AFTER TRTMT FO 01/03/2017 REECE WILSON MD, Ot 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 01/03/2017 REECE WILSON MD Ot Z79.899 OTHER HALFWAY (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 THERAPY 01/03/2017 REECE WILSON MD Ot Z85.038 PERSONAL HISTORY OF MALIGNANT NEOPLASM O 01/03/2017 REECE WILSON MD Ot Z85.46 PERSONAL HISTORY OF MALIGNANT NEOPLASM O 01/03/2017 REECE WILSON MD Ot Z86.718 PERSONAL HISTORY OF OTHER VENOUS THROMBO 02/09/2017 REECE WILSON MD Ot C79.51 SECONDARY MALIGNANT NEOPLASM OF BONE 02/09/2017 REECE WILSON MD Ot D64.9 ANEMIA, UNSPECIFIED 02/09/2017 REECE WILSON MD Ot E83.52 HYPERCALCEMIA 02/09/2017 REECE WILSON MD Ot Z08 ENCNTR FOR FOLLOW-UP EXAM AFTER TRTMT FO 02/09/2017 REECE WILSON MD Ot 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 02/09/2017 REECE WILSON MD Ot Z79.899 OTHER HALFWAY (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 THERAPY 02/09/2017 REECE WILSON MD Ot Z85.038 PERSONAL HISTORY OF MALIGNANT NEOPLASM O 02/09/2017 REECE WILSON MD Ot Z85.46 PERSONAL HISTORY OF MALIGNANT NEOPLASM O 02/09/2017 REECE WILSON MD Ot Z86.718 PERSONAL HISTORY OF OTHER VENOUS THROMBO 03/02/2017 REECE WILSON MD Ot C79.51 SECONDARY MALIGNANT NEOPLASM OF BONE 03/02/2017 REECE WILSON MD, Ot D64.9 ANEMIA, UNSPECIFIED 03/02/2017 REECE WILSON MD Ot E83.52 HYPERCALCEMIA 03/02/2017 REECE WILSON MD, Ot Z08 ENCNTR FOR FOLLOW-UP EXAM AFTER TRTMT FO 03/02/2017 REECE WILSON MD, Ot Z79.01 HALFWAY (CURRENT) USE OF ANTICOAGULANT 03/02/2017 REECE WILSON MD Ot 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 03/02/2017 REECE WILSON MD, Ot Z85.038 PERSONAL HISTORY OF MALIGNANT NEOPLASM O 03/02/2017 REECE WILSON MD, Ot Z85.46 PERSONAL HISTORY OF MALIGNANT NEOPLASM O 03/02/2017 REECE WILSON MD, Ot Z86.718 PERSONAL HISTORY OF OTHER VENOUS THROMBO 03/05/2017 REECE WILSON MD, Ot C79.51 SECONDARY MALIGNANT NEOPLASM OF BONE 03/05/2017 ERECE WILSON MD, Ot D64.9 ANEMIA, UNSPECIFIED 03/05/2017 REECE WILSON MD Ot E83.52 HYPERCALCEMIA 03/05/2017 REECE WILSON MD, Ot Z08 ENCNTR FOR FOLLOW-UP EXAM AFTER TRTMT FO 03/05/2017 REECE WILSON MD, Ot 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 03/05/2017 REECE WILSON MD Ot Z79.899 OTHER HALFWAY (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 THERAPY 03/05/2017 REECE WILSON MD Ot Z85.038 PERSONAL HISTORY OF MALIGNANT NEOPLASM O 03/05/2017 REECE WILSON MD Ot Z85.46 PERSONAL HISTORY OF MALIGNANT NEOPLASM O 03/05/2017 REECE WILSON MD, Ot Z86.718 PERSONAL HISTORY OF OTHER VENOUS THROMBO 04/16/2017 REECE WILSON MD Ot C79.51 SECONDARY MALIGNANT NEOPLASM OF BONE 04/16/2017 REECE WILSON MD, Ot D64.9 ANEMIA, UNSPECIFIED 04/16/2017 REECE WILSON MD Ot E83.52 HYPERCALCEMIA 04/16/2017 REECE WILSON MD, Ot Z08 ENCNTR FOR FOLLOW-UP EXAM AFTER TRTMT FO 04/16/2017 REECE WILSON MD, Ot Z79.01 HALFWAY (CURRENT) USE OF ANTICOAGULANT 04/16/2017 REECE WILSON MD, Ot 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 04/16/2017 REECE WILSON MD, Ot Z85.038 PERSONAL HISTORY OF MALIGNANT NEOPLASM O 04/16/2017 REECE WILSON MD, Ot Z85.46 PERSONAL HISTORY OF MALIGNANT NEOPLASM O 04/16/2017 REECE WILSON MD, Ot Z86.718 PERSONAL HISTORY OF OTHER VENOUS THROMBO 07/17/2017 PETER HARDY MD Ot V72.84 EXAM PRE-OPERATIVE NOS 07/17/2017 PETER HARDY MD Ot 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 07/17/2017 PETER HARDY MD Ot 455.0 INT HEMORRHOID W/O COMPL 07/17/2017 PETER HARDY MD, Ot 455.3 EXT HEMORRHOID W/O COMPL 07/17/2017 PETER HARDY MD Ot 562.10 DIVERTICULOSIS COLON (W/O MENT OF HEMORR 07/17/2017 PETER HARDY MD Ot V10.05 HX OF COLONIC MALIGNANCY 07/17/2017 PETER HARDY MD Ot V58.61 ANTICOAGULANTS,LT,CURRENT USE 07/17/2017 PETER HARDY MD, Ot V58.69 OTH MED,LT,CURRENT USE 07/17/2017 SVITLANA SIMMONS MD Ot 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 07/17/2017 OTHER, UNLISTED Ot Z48.812 ENCNTR FOR SURGICAL AFTCR FOLLOWING SURG 07/17/2017 OTHER, UNLISTED Ot Z95.5 PRESENCE OF CORONARY ANGIOPLASTY IMPLANT 07/17/2017 JOSE ALEJANDRO DONALDSON MD Ot E78.2 MIXED HYPERLIPIDEMIA 07/17/2017 JOSE ALEJANDRO DONALDSON MD Ot I10 ESSENTIAL (PRIMARY) HYPERTENSION 07/17/2017 JOSE ALEJANDRO DONALDSON MD Ot Z79.01 HALFWAY (CURRENT) USE OF ANTICOAGULANT 08/25/2017 REECE WILSON MD Ot C61 MALIGNANT NEOPLASM OF PROSTATE 08/25/2017 REECE WILSON MD, Ot C79.51 SECONDARY MALIGNANT NEOPLASM OF BONE 08/25/2017 REECE WILSON MD, Ot D64.9 ANEMIA, UNSPECIFIED 08/25/2017 REECE WILSON MD, Ot E83.52 HYPERCALCEMIA 08/25/2017 REECE WILSON MD, Ot 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 08/25/2017 REECE WILSON MD, Ot 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 08/25/2017 REECE WILSON MD, Ot Z85.038 PERSONAL HISTORY OF MALIGNANT NEOPLASM O 08/25/2017 REECE WILSON MD, Ot Z86.718 PERSONAL HISTORY OF OTHER VENOUS THROMBO 08/25/2017 REECE WILSON MD, Ot Z90.49 ACQUIRED ABSENCE OF OTHER SPECIFIED PART 09/02/2017 REECE WILSON MD, Ot C61 MALIGNANT NEOPLASM OF PROSTATE 09/02/2017 REECE WILSON MD, Ot C79.51 SECONDARY MALIGNANT NEOPLASM OF BONE 09/02/2017 REECE WILSON MD, Ot D64.9 ANEMIA, UNSPECIFIED 09/02/2017 REECE WILSON MD, Ot E83.52 HYPERCALCEMIA 09/02/2017 REECE WILSON MD, Ot 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 09/02/2017 REECE WILSON MD, Ot Z79.899 OTHER HALFWAY (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 THERAPY 09/02/2017 REECE WILSON MD, Ot Z85.038 PERSONAL HISTORY OF MALIGNANT NEOPLASM O 09/02/2017 REECE WILSON MD, Ot Z86.718 PERSONAL HISTORY OF OTHER VENOUS THROMBO 09/02/2017 REECE WILSON MD, Ot Z90.49 ACQUIRED ABSENCE OF OTHER SPECIFIED PART Procedures Code Description Performed By Performed On 45.23 COLONOSCOPY 11/28/2013 45.16 ESOPHAGOGASTRODUODENOSCOPY [ EGD] W/CLOSE 09/11/2014 45.23 COLONOSCOPY 09/11/2014 45.75 OPEN AND OTHER LEFT HEMICOLECTOMY 09/13/2014 38.93 VENOUS CATHETERIZATION NEC 09/19/2014 99.15 PARENTERAL INFUSION OF CONCENTRATED NUT. 09/19/2014 Results Test Result Range PT panel in platelet poor plasma by coagulation assay - 11/22/15 07:08 Prothrombin time (PT) in platelet poor plasma by coagulation assay 13.8 s 12.2-14.7 INR in platelet poor plasma or blood by coagulation assay 1.1 0.8-1.4 Lipid 1996 panel - 11/22/15 07:08 Serum or plasma triglyceride measurement (mass/volume) 51 mg/dL <150 Serum or plasma cholesterol measurement (mass/volume) 122 mg/dL < 200 Serum or plasma cholesterol in HDL measurement (mass/volume) 55 mg/ dL 40-60 Cholesterol in LDL [mass/volume] in serum or plasma by direct assay 52 mg/dL 1-129 Serum or plasma cholesterol in VLDL measurement (mass/volume) 10 mg/ dL 5-40 THYROID STIMULATING HORMONE - 11/22/15 07:08 THYROID STIMULATING HORMONE 2.17 u[iU]/mL 0.35-4.94 PT panel in platelet poor plasma by coagulation assay - 12/04/15 08:58 Prothrombin time (PT) in platelet poor plasma by coagulation assay 18.7 s 12.2-14.7 INR in platelet poor plasma or blood by coagulation assay 1.6 0.8-1.4 PT panel in platelet poor plasma by coagulation assay - 12/11/15 09:12 Prothrombin time (PT) in platelet poor plasma by coagulation assay 21.0 s 12.2-14.7 INR in platelet poor plasma or blood by coagulation assay 1.8 0.8-1.4 PT panel in platelet poor plasma by coagulation assay - 12/26/15 08:47 Prothrombin time (PT) in platelet poor plasma by coagulation assay 17.1 s 12.2-14.7 INR in platelet poor plasma or blood by coagulation assay 1.4 0.8-1.4 Encounters ACCT No. Visit Date/Time Discharge Status Pt. Type Provider Facility Loc./Unit Complaint [id number] 2017 12:47:00 2017 23:59:59 CLS Outpatient REECE WILSON MD [facility] ONC [id number] 01/16/2017 10:19:00 04/16/2017 00:01:00 DIS Outpatient REECE WILSON MD [facility] ONC [id number] 10/28/2016 10:06:00 01/03/2017 00:01:00 DIS Outpatient REECE WILSON MD [facility] ONC [id number] 12/22/2016 12:47:00 12/22/2016 13:42:00 DIS Emergency TJ FLOWER EQUITY DIRECTOR [facility] ER FALL/LEFT ARM LAC [id number] 04/29/2016 08:45:00 07/16/2016 00:01:00 DIS Outpatient REECE WILSON MD [facility] ONC [id number] 02/21/2016 00:08:00 02/21/2016 23:59:59 CLS Preadmit JOSE ALEJANDRO DONALDSON MD [facility] LAB HTN,HYPERLIPIDEMIA [id number] 02/21/2016 18:00:00 02/21/2016 18:51:00 DIS Emergency TJ FLOWER EQUITY DIRECTOR [facility] ER TOE INJ [id number] 12/26/2015 08:39:00 02/20/2016 00:01:00 DIS Outpatient JOSE ALEJANDRO DONALDSON MD [facility] LAB HTN,HYPERLIPIDEMIA [id number] 11/07/2015 13:12:00 01/27/2016 00:01:00 DIS Outpatient REECE WILSON MD [facility] ONC [id number] 05/28/2015 12:39:00 08/12/2015 00:01:00 DIS Outpatient REECE WILSON MD [facility] ONC [id number] 04/06/2015 11:00:00 04/06/2015 23:59:59 CLS Preadmit OTHER, UNLISTED [facility] CR STENT [id number] 02/26/2015 12:01:00 04/05/2015 00:01:00 DIS Outpatient OTHER, UNLISTED [facility] CR STENT [id number] 01/03/2015 11:43:00 01/03/2015 00:01:00 DIS Outpatient OTHER, UNLISTED [facility] CR STENT [id number] 11/14/2014 12:39:00 01/03/2015 00:01:00 DIS Outpatient REECE WILSON MD [facility] ONC LAB [id number] 09/08/2014 19:35:00 09/20/2014 15:15:00 DIS Inpatient QUYEN RAMIREZ MD [facility] SURGICAL GI BLEED [id number] 09/01/2014 13:25:00 09/03/2014 11:05:00 DIS Inpatient QUYEN RAMIREZ MD [facility] SURGICAL LOWER GI BLEED [id number] 04/18/2014 13:14:00 07/16/2014 00:01:00 DIS Outpatient REECE WILSON MD [facility] ONC LAB [id number] 01/09/2014 12:17:00 01/09/2014 23:59:59 CLS Outpatient SVITLANA SIMMONS MD [facility] RAD REDNESS, NODULES LEFT UPPER INNER THIGH [id number] 10/11/2013 13:19:00 01/01/2014 00:01:00 DIS Outpatient REECE WILSON MD [facility] ONC LAB [id number] 11/25/2013 22:50:00 11/29/2013 17:00:00 DIS Inpatient QUYEN RAMIREZ MD [facility] SURGICAL LOWER GI BLEED [id number] 09/24/2013 07:45:00 09/24/2013 09:53:00 DIS Emergency SVITLANA SIMMONS MD [facility] ER CONFUSION, DIFFICULTY WALKING [id number] 03/22/2013 09:16:00 06/14/2013 00:01:00 DIS Outpatient REECE WILSON MD [facility] ONC LAB [id number] 09/20/2012 09:16:00 12/14/2012 00:01:00 DIS Outpatient REECE WILSON MD [facility] ONC LAB [id number] 10/23/2012 09:06:00 10/23/2012 23:59:59 CLS Outpatient [id number] 09/01/2012 07:54:00 09/01/2012 23:59:59 CLS Outpatient PETER HARDY MD [facility] SDC HX POLYPS [id number] 08/25/2012 07:18:00 08/25/2012 23:59:59 CLS Outpatient PETER HARDY MD [facility] PREOP HX POLYPS [id number] 04/27/2015 18:16:00 Document Registration [id number] 01/19/2012 08:51:00 Document Registration [id number] 09/25/2011 05:51:00 Document Registration [id number] 09/22/2011 07:43:00 Document Registration [id number] 09/16/2011 10:49:00 Document Registration [id number] 01/14/2011 08:50:00 Document Registration [id number] 07/09/2010 09:11:00 Document Registration [id number] 07/08/2010 06:42:00 Document Registration [id number] 01/15/2015 13:25:27 ACT Document Registration [id number] 12/11/2016 23:49:04 12/11/2016 23:59:59 [facility] Outpatient
[2017-09-21 12:36] LABS: BASOPHILS % (AUTO) 0 % (0-10); EOSINOPHILS # (AUTO) 0.4 10^3/uL (0.0-0.3); EOSINOPHILS % (AUTO) 6 % (0-10); HEMATOCRIT 36 % (40-54); HEMOGLOBIN 12.4 G/DL (13.3-17.7); LYMPHOCYTES # (AUTO) 1.6 X 10^3 (1.0-4.0); LYMPHOCYTES % (AUTO) 25 % (12-44); MEAN CORPUSCULAR HEMOGLOBIN 33 PG (25-34); MEAN CORPUSCULAR HGB CONC 35 G/DL (32-36); MEAN CORPUSCULAR VOLUME 95 FL (80-99); MONOCYTES # (AUTO) 0.6 X 10^3 (0.0-1.0); MONOCYTES % (AUTO) 10 % (0-12); NEUTROPHILS # (AUTO) 3.8 X 10^3 (1.8-7.8); NEUTROPHILS % (AUTO) 59 % (42-75); PLATELET COUNT 256 10^3/uL (130-400); RED BLOOD COUNT 3.76 10^6/uL (4.35-5.85); WHITE BLOOD COUNT 6.4 10^3/uL (4.3-11.0)
--- NOTE | 2017-09-21 12:44 | ED Trauma-Multisystem ---
General Chief Complaint: Trauma-Non Activation Stated Complaint: FALL/LEFT SIDE PAIN Source of Information: Patient, Family Exam Limitations: No Limitations History of Present Illness Date Seen by Provider: Sep 21, 2017 Time Seen by Provider: 11:30 Initial Comments Patient is a 87-year-old male who presents to the emergency room with complaints of a fall causing left-sided abdominal and chest wall pain 4 days ago. He reports he was getting up from a chair when he lost his footing and fell landing on what he thinks was the armrest. He said he did not notice the pain at first but when he strains to have a bowel movement the pain is intensified. He denies any other injuries such as head or neck pain from the fall. Occurred: Last Week Pain/Injury Location: Abdomen, Chest Method of Injury: Fall Modifying Factors: Immobilization Associated Symptoms (Fall): Denies Symptoms Allergies and Home Medications Allergies Coded Allergies: NKANo Known Allergies (Verified Allergy, Unknown, 01/22/06) Home Medications Docusate Sodium 100 Mg Tablet, 200 MG PO DAILY PRN for CONSTIPATION, (Reported) TAKES 2 (100MG) TABLETS Glucosam/Chondroit/C/Manganese 1 Each Capsule, 2 CAP PO DAILY, (Reported) Hydrocodone/Acetaminophen 1 Each Tablet, 1 EACH PO Q4H PRN for PAIN Prescribed by: TJ FLOWER on 02/21/161837 Lisinopril 20 Mg Tablet, 20 MG PO DAILY, (Reported) Multivitamins-Min/Fa/Ginkgo 1 Each Tablet, 1 TAB PO DAILY, (Reported) Naproxen Sodium 220 Mg Capsule, 220 MG PO DAILY, (Reported) Warfarin Sod 7.5 Mg Tablet, 7.5 MG PO UD, (Reported) TAKES SUN, MON, WED, TH, FRI. Warfarin Sodium 10 Mg Tablet, 10 MG PO UD, (Reported) PATIENT TAKES ON AND THU Patient Home Medication List Home Medication List Reviewed: Yes Review of Systems Constitutional: see HPI; No chills, No diaphoresis Eyes: See HPI; Denies Blindness, Denies Blurred Vision Ears: See HPI; Denies Dizziness, Denies Pain Nose: See HPI; No Bloody Discharge, No Clear Discharge Mouth: See HPI; No Bloody Discharge, No Clear Discharge Throat: See HPI; No Aphonia, No Difficulty With Fluids Respiratory: see HPI; No dyspnea on exertion, No short of breath, No wheezing Cardiovascular: See HPI, Other (chest wall pain) Gastrointestinal: see HPI, abdominal pain; No constipation, No diarrhea, No nausea, No vomiting Genitourinary: see HPI; No discharge, No dysuria, No frequency, No hematuria Musculoskeletal: see HPI; No joint swelling, No muscle pain, No muscle stiffness Skin: see HPI; No dryness, No hx of skin cancer, No lesions Psychiatric/Neurological: See HPI; Denies Anxiety, Denies Depressed, Denies Emotional Problems All Other Systems Reviewed Negative Unless Noted: Yes Past Vgntzng-Dzmgii-Ymwmji Hx Past Med/Social Hx: Reviewed Nursing Past Med/Soc Hx Patient Social History Alcohol Beverage of Choice: [place] Recent Foreign Travel: No Contact w/Someone Who Travel: No Recent Hopitalizations: No Immunizations Up To Date Date of Influenza Vaccine: Jan 04, 2011 Past Medical History Surgeries: Yes (PROSTATE, HERNIA REPAIR, Colon resection) Abdominal Respiratory: No (SMOKER/CIGARS) Cardiac: Yes Hypertension Neurological: No Reproductive Disorders: No Gastrointestinal: Yes (Hernia repair, Colon resection) Gastrointestinal Bleed, Diverticulosis Musculoskeletal: No Endocrine: No Cancer: Yes Colon Psychosocial: Yes Anxiety Integumentary: No Blood Disorders: Yes (SEPSIS) Family Medical History Reviewed Nursing Family Hx Cancer of mouth 19 FATHER (PT UNSURE OF TYPE OF CANCER FATHER HAD) Diabetes mellitus 19 MOTHER G8 BROTHER Physical Exam Vital Signs Vital Signs - First Documented 09/21/17 12:13 Temp 97.0 Pulse 74 Resp 18 B/P (MAP) 162/78 (106) Pulse Ox 98 General Appearance: No Apparent Distress, WD/WN Head: No Evidence of Injury Ears, Nose, Throat: Hearing Grossly Normal, No Evidence of ENT Injury, No Dental Injury Neck: Full Range of Motion, Normal Inspection, Non Tender, Supple Cardiovascular: Regular Rate, Rhythm, No Edema, No Gallop, No JVD, No Murmur, Normal Peripheral Pulses Respiratory: Chest Non Tender, Lungs Clear, Normal Breath Sounds, No Accessory Muscle Use, No Respiratory Distress Gastrointestinal: Normal Bowel Sounds, No Organomegaly, No Pulsatile Mass, Non Tender, Soft Rectal: Normal Exam, Normal Rectal Tone, Heme Negative Stool, Deferred Genital/Rectal: Normal Genital Exam, Normal Rectal Exam, Normal Rectal Tone, Normal Vaginal Exam Back: Normal Inspection, No CVA Tenderness, No Vertebral Tenderness Extremity: Normal Capillary Refill, Normal Inspection, Normal Range of Motion, Non Tender, No Calf Tenderness Neurologic/Psychiatric: Alert, Oriented x3, Normal Mood/Affect Skin: Normal Color, Warm/Dry Lymphatic: No Adenopathy Progress/Results/Core Measures Results/Orders Lab Results Laboratory Tests Test 09/21/17 12:25 Range/Units White Blood Count 6.4 4.3-11.0 10^3/uL Red Blood Count 3.76 L 4.35-5.85 10^6/uL Hemoglobin 12.4 L 13.3-17.7 G/DL Hematocrit 36 L 40-54 % Mean Corpuscular Volume 95 80-99 FL Mean Corpuscular Hemoglobin 33 25-34 PG Mean Corpuscular Hemoglobin Concent 35 32-36 G/DL Red Cell Distribution Width 14.0 10.0-14.5 % Platelet Count 256 130-400 10^3/uL Mean Platelet Volume 9.0 7.4-10.4 FL Neutrophils (%) (Auto) 59 42-75 % Lymphocytes (%) (Auto) 25 12-44 % Monocytes (%) (Auto) 10 0-12 % Eosinophils (%) (Auto) 6 0-10 % Basophils (%) (Auto) 0 0-10 % Neutrophils # (Auto) 3.8 1.8-7.8 X 10^3 Lymphocytes # (Auto) 1.6 1.0-4.0 X 10^3 Monocytes # (Auto) 0.6 0.0-1.0 X 10^3 Eosinophils # (Auto) 0.4 H 0.0-0.3 10^3/uL Basophils # (Auto) 0.0 0.0-0.1 10^3/uL Prothrombin Time 33.0 H 12.2-14.7 SEC INR Comment 3.2 H 0.8-1.4 Sodium Level 141 135-145 MMOL/L Potassium Level 4.8 3.6-5.0 MMOL/L Chloride Level 107 98-107 MMOL/L Carbon Dioxide Level 28 21-32 MMOL/L Anion Gap 6 5-14 MMOL/L Blood Urea Nitrogen 22 H 7-18 MG/DL Creatinine 1.03 0.60-1.30 MG/DL Estimat Glomerular Filtration Rate > 60 BUN/Creatinine Ratio 21 Glucose Level 99 70-105 MG/DL Calcium Level 11.0 H 8.5-10.1 MG/DL Total Bilirubin 0.6 0.1-1.0 MG/DL Aspartate Amino Transf (AST/SGOT) 18 5-34 U/L Alanine Aminotransferase (ALT/SGPT) 24 0-55 U/L Alkaline Phosphatase 67 40-136 U/L Total Protein 7.3 6.4-8.2 GM/DL Albumin 4.1 3.2-4.5 GM/DL My Orders Orders - TJ FLOWER APRN Cbc With Automated Diff (09/21/17 12:17) Comprehensive Metabolic Panel (09/21/17 12:17) Protime With Inr (09/21/17 12:17) Ct Chest/Abdomen/Pelvis W (09/21/17 12:17) Iohexol Injection (Omnipaque 350 Mg/Ml 1 (09/21/17 13:00) Ns (Ivpb) (Sodium Chloride 0.9%) (09/21/17 13:00) Medications Given in ED Current Medications Medications Dose Ordered Sig/Yoni Route Start Time Stop Time Status Last Admin Dose Admin Iohexol 100 ml ONCE ONCE IV 09/21/17 13:00 09/21/17 13:01 DC 09/21/17 13:21 100 ML Sodium Chloride 250 ml ONCE ONCE IV 09/21/17 13:00 09/21/17 13:01 DC 09/21/17 13:21 80 ML Vital Signs/I&O 09/21/17 09/21/17 12:13 14:24 Temp 97.0 97.0 Pulse 74 74 Resp 18 18 B/P (MAP) 162/78 (106) 162/78 (106) Pulse Ox 98 98 Progress Progress Note : Time: 14:15 Progress Note After reviewing the CT results with the patient hhe reports the findings of bone metastasis is nothing new and he was aware of this. Diagnostic Imaging Diagonstic Imaging: CT Plain Films/CT/US/NM/MRI: chest, abdomen, pelvis Comments VIA [facility]. [place], [place] NAME: KYLEDOMITILA Bryanna [facility] REC#: [id number] PT STATUS: REG ER : 1930 PHYSICIAN: TJ FLOWER APRN ADMIT DATE: 09/21/17/ER Draft Date of Exam:06/18/18 CT CHEST/ABDOMEN/PELVIS W PROCEDURE: CT chest, abdomen, and pelvis with contrast. TECHNIQUE: Multiple contiguous axial images were obtained through the chest, abdomen, and pelvis after the administration of intravenous contrast. INDICATION: Fall with left-sided pain. COMPARISON: Comparison is made with prior CT abdomen and pelvis from 09/01/2014. FINDINGS: CT chest: No definite mediastinal hematoma or evidence of great vessel injury is seen. No pulmonary contusion or hemothorax is detected. Nonspecific sclerotic focus involving the left third posterior rib is seen. No definite rib fracture is identified. No axillary, hilar or mediastinal lymphadenopathy is seen. There are coronary arterial calcifications present. IMPRESSION: No acute feature in the chest is identified. CT abdomen and pelvis: No definite liver or splenic laceration is seen. Multiple rounded low density masses within the liver again noted suggestive of cysts. There is generalized low density throughout the liver consistent with hepatic steatosis. Gallbladder is unremarkable. Pancreas is unremarkable. No adrenal mass is seen. There are renal low densities, similar to prior exam and consistent with cysts. Aorta is heavily calcified but nonaneurysmal. Bowel loops are of normal caliber. There is no free fluid identified. Bladder is unremarkable. Several sclerotic foci have developed in the pelvis and lumbar spine since prior study. 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 Whole body bone scan would be useful for further evaluation. IMPRESSION: 1. No evidence of abdominal or pelvic visceral injury. 2. 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 Whole body bone scan would be useful for further evaluation. Dictated on workstation # [id number] Dict: 09/21/17 1348 Trans: 09/21/17 1401 [facility] [id number] Interpreted by: LELA WATKINS MD Electronically signed by: Departure Impression Primary Impression: Contusion Qualified Codes: S30.1XXA - Contusion of abdominal wall, initial encounter Disposition: 01 HOME, SELF-CARE Condition: Stable/Unchanged Departure-Patient Inst. Decision time for Depature: 14:13 Referrals: JOSE ALEJANDRO DONALDSON MD (PCP/Family) Primary Care Physician Patient Instructions: Contusion (DC) Add. Discharge Instructions: Continue medications as prescribed, follow up with your doctor within 1 week for recheck and call today for an appointment time. Return back to the emergency room for any worsening pain, shortness of breath, bleeding, or any other concerns as needed. All discharge instructions reviewed with patient and/ or family. Voiced understanding. [employer] Sep 21, 2017 12:44
[2017-09-21 12:45] LABS: INR 3.2 (0.8-1.4)
[2017-09-21 12:52] LABS: ALANINE AMINOTRANSFERASE 24 U/L (0-55); ALBUMIN 4.1 GM/DL (3.2-4.5); ALKALINE PHOSPHATASE 67 U/L (40-136); BILIRUBIN,TOTAL 0.6 MG/DL (0.1-1.0); BUN/CREATININE RATIO 21; CARBON DIOXIDE 28 MMOL/L (21-32); CHLORIDE 107 MMOL/L (98-107); CREATININE SERUM 1.03 MG/DL (0.60-1.30); GFR ESTIMATED > 60; GLUCOSE 99 MG/DL (70-105); POTASSIUM 4.8 MMOL/L (3.6-5.0); SODIUM 141 MMOL/L (135-145); TOTAL PROTEIN 7.3 GM/DL (6.4-8.2)
[2017-09-21] MEDS ORDERED: IOHEXOL 350 MG/ML 100 ML (OMNIPAQUE 350) VIAL IV ONE (13:00)
[2017-09-21] MEDS ORDERED: NS 250 ML (IVPB) BAG IV ONE (13:00)
--- NOTE | 2017-09-21 14:02 | Diagnostic Imaging Report ---
PROCEDURE: CT chest, abdomen, and pelvis with contrast. TECHNIQUE: Multiple contiguous axial images were obtained through the chest, abdomen, and pelvis after the administration of intravenous contrast. INDICATION: Fall with left-sided pain. COMPARISON: Comparison is made with prior CT abdomen and pelvis from 09/01/2014. FINDINGS: CT chest: No definite mediastinal hematoma or evidence of great vessel injury is seen. No pulmonary contusion or hemothorax is detected. Nonspecific sclerotic focus involving the left third posterior rib is seen. No definite rib fracture is identified. No axillary, hilar or mediastinal lymphadenopathy is seen. There are coronary arterial calcifications present. IMPRESSION: No acute feature in the chest is identified. CT abdomen and pelvis: No definite liver or splenic laceration is seen. Multiple rounded low density masses within the liver again noted suggestive of cysts. There is generalized low density throughout the liver consistent with hepatic steatosis. Gallbladder is unremarkable. Pancreas is unremarkable. No adrenal mass is seen. There are renal low densities, similar to prior exam and consistent with cysts. Aorta is heavily calcified but nonaneurysmal. Bowel loops are of normal caliber. There is no free fluid identified. Bladder is unremarkable. Several sclerotic foci have developed in the pelvis and lumbar spine since prior study. 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 Whole body bone scan would be useful for further evaluation. IMPRESSION: 1. No evidence of abdominal or pelvic visceral injury. 2. 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 Whole body bone scan would be useful for further evaluation. Dictated by: Dictated on workstation # [id number]
[2017-09-21 14:24] VITALS: BP 162/78
== END 2017-09-21 14:24 | disposition home or self-care (01) ==
LOC: EDUNIT# 12:02 → ER 12:05
DX: S30.1XXA Contusion of abdominal wall, initial encounter (principal); I10 Essential (primary) hypertension; F41.9 Anxiety disorder, unspecified; Z87.19 Personal history of other diseases of the digestive system; Z85.038 Personal history of other malignant neoplasm of large intestine; Z79.01 Long term (current) use of anticoagulants; Z90.49 Acquired absence of other specified parts of digestive tract; Z98.890 Other specified postprocedural states; W01.198A Fall on same level from slipping, tripping and stumbling with subsequent striking against other object, initial encounter
CPT/HCPCS: 36415; 71260; 74177; 80053; 85025; 85610

== ENCOUNTER 2017-11-10 05:35 | Outpatient (CLI) | payer MEDICARE ==
[~2017-11-10] VITALS: Ht 162.6 cm; Wt 90.7 kg
[2017-11-10] MEDS ORDERED: MULT-1061 PO (10:15)
[2017-11-10] MEDS ORDERED: ASPI-586 PO (10:15)
[2017-11-10] MEDS ORDERED: CALC-146 PO (10:15)
[2017-11-10] MEDS ORDERED: WARF-48 PO (10:15)
[2017-11-10] MEDS ORDERED: WARF7.5T49 PO (10:15)
[2017-11-10] MEDS ORDERED: ASCO1TAB12 PO (10:15)
[2017-11-10] MEDS ORDERED: LISI-552 PO (10:15)
[2017-11-10] MEDS ORDERED: AMLO2.5T PO (10:15)
[2017-11-10] MEDS ORDERED: DOCU100T2 PO (10:15)
[2017-11-10] MEDS ORDERED: ATOR20TA66 PO (10:15)
[2017-11-10] MEDS ORDERED: CARV6.252 PO (10:15)
== END 2017-11-10 10:16 | disposition home or self-care (01) ==
LOC: PREOP 05:35
PROVIDERS: ATTEND Surgery
DX: Z01.818 Encounter for other preprocedural examination (principal)

== ENCOUNTER 2018-01-11 22:06 | Emergency (ER) | payer MEDICARE ==
[~2018-01-11] VITALS: Ht 162.6 cm; Wt 90.7 kg
[~2018-01-11 22:06] MED LIST changes: +AMLO2.5T3 PO; +ASCO1TAB12 PO; +ASPI-586 PO; +ATOR20TA66 PO; +CALC-146 PO; +CARV6.252 PO; +DOCU100T2 PO; +HYDR-4226 PO; -HYDR-757 PO; +LISI-552 PO; +MULT-1061 PO; +WARF-48 PO; +WARF7.5T49 PO
[2018-01-11 22:35] LABS: BASOPHILS % (AUTO) 0 % (0-10); EOSINOPHILS # (AUTO) 0.6 10^3/uL (0.0-0.3); EOSINOPHILS % (AUTO) 9 % (0-10); HEMATOCRIT 33 % (40-54); HEMOGLOBIN 11.4 G/DL (13.3-17.7); LYMPHOCYTES # (AUTO) 1.9 X 10^3 (1.0-4.0); LYMPHOCYTES % (AUTO) 30 % (12-44); MEAN CORPUSCULAR HEMOGLOBIN 33 PG (25-34); MEAN CORPUSCULAR HGB CONC 35 G/DL (32-36); MEAN CORPUSCULAR VOLUME 96 FL (80-99); MEAN PLATELET VOLUME 9.4 FL (7.4-10.4); MONOCYTES # (AUTO) 0.6 X 10^3 (0.0-1.0); MONOCYTES % (AUTO) 10 % (0-12); NEUTROPHILS # (AUTO) 3.3 X 10^3 (1.8-7.8); NEUTROPHILS % (AUTO) 51 % (42-75); PLATELET COUNT 239 10^3/uL (130-400); RED BLOOD COUNT 3.41 10^6/uL (4.35-5.85); RED CELL DISTRIBUTION WIDTH 13.9 % (10.0-14.5); WHITE BLOOD COUNT 6.4 10^3/uL (4.3-11.0)
[2018-01-11 22:57] LABS: INR 2.4 (0.8-1.4); PROTHROMBIN TIME PATIENT 26.6 SEC (12.2-14.7)
[2018-01-11] MEDS ORDERED: LIDOCAINE/EPI 2% 1:100,00 (XYLOCAINE) 20 ML VIAL INJ ONE (23:00)
[2018-01-11 23:05] LABS: ALANINE AMINOTRANSFERASE 23 U/L (0-55); ALKALINE PHOSPHATASE 53 U/L (40-136); BILIRUBIN,TOTAL 0.4 MG/DL (0.1-1.0); BUN/CREATININE RATIO 24; CARBON DIOXIDE 21 MMOL/L (21-32); CHLORIDE 109 MMOL/L (98-107); CREATININE SERUM 0.99 MG/DL (0.60-1.30); GFR ESTIMATED > 60; GLUCOSE 103 MG/DL (70-105); POTASSIUM 3.6 MMOL/L (3.6-5.0); SODIUM 141 MMOL/L (135-145); TOTAL PROTEIN 6.8 GM/DL (6.4-8.2)
[2018-01-12] MEDS ORDERED: RX-HYDROCODONE/APAP 5/325 MG #4 TAB PK PO PRN (00:15)
[2018-01-12] MEDS ORDERED: HYDR-3812 PO (00:20)
--- NOTE | 2018-01-12 00:23 | ED Lower Extremity ---
General Chief Complaint: Lower Extremity Stated Complaint: TOE INJURY Nursing Triage Note: TO ED VIA AMBULANCE C/O LEFT PINKY TOE SLICED BY LADDER. Nursing Sepsis Screen: No Definite Risk Source: patient, family, EMS Exam Limitations: no limitations History of Present Illness Date Seen by Provider: Jan 11, 2018 Time Seen by Provider: 22:08 Initial Comments This 87 year old gentleman presents to the ER via EMS after suffering a near amputation of the left fifth toe. Patient was walking in his living room when he snagged the toe on a ladder that was in the room. He denies any other injury. There was significant bleeding at the seen but no bleeding on arrival. Patient reports drinking some bourbon tonight but does not appear intoxicated. He is alert and oriented. He denies significant pain. 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 Onset: just prior to arrival Allergies and Home Medications Allergies Coded Allergies: Ajit Known Allergies (Verified Allergy, Unknown, 01/22/06) Home Medications Amlodipine Besylate 2.5 Mg Tablet, 2.5 MG PO DAILY, (Reported) Ascorbate Calcium/Bioflavonoid 1 Each Tablet, 1 EACH PO BID, (Reported) Aspirin 81 Mg Tablet.dr, 81 MG PO DAILY, (Reported) Atorvastatin Calcium 20 Mg Tablet, 20 MG PO DAILY, (Reported) Calcium Crb&Cit/D3/Min34/Ana 1 Each Tablet, 1 EACH PO BID, (Reported) Carvedilol 6.25 Mg Tablet, 6.25 MG PO BID, (Reported) Docusate Sodium 100 Mg Tablet, 100 MG PO DAILY PRN for CONSTIPATION-1ST LINE, ( Reported) Hydrocodone/Acetaminophen 1 Each Tablet, 0.5-1 EACH PO Q4-6HR PRN for PAIN- MODERATE Prescribed by: NALDO SIFUENTES on 01/12/18 0020 Lisinopril 20 Mg Tablet, 20 MG PO DAILY, (Reported) Multivit-Min/FA/Lycopen/Lutein 1 Each Tablet, 1 EACH PO DAILY, (Reported) Sulfamethoxazole/Trimethoprim 1 Each Tablet, 1 EACH PO BID Prescribed by: NLADO SIFUENTES on 01/12/18 002 Warfarin Sodium 7.5 Mg Tablet, 7.5 MG PO [id number], (Reported) Warfarin Sodium 5 Mg Tablet, 5 MG PO Sa, (Reported) Patient Home Medication List Home Medication List Reviewed: Yes Review of Systems Constitutional: no symptoms reported EENTM: no symptoms reported Respiratory: no symptoms reported Cardiovascular: no symptoms reported Gastrointestinal: no symptoms reported Genitourinary: no symptoms reported Musculoskeletal: see HPI Skin: see HPI Psychiatric/Neurological: See HPI Past Zzqmgta-Mkxllw-Qkmrld Hx Past Med/Social Hx: Reviewed and Corrections made Patient Social History Alcohol Use: Regular Use Number of Drinks Today: BB Alcohol Beverage of Choice: [place] Recreational Drug Use: No Smoking Status: Former Smoker Type Used: Cigarettes Former Smoker, Quit: Oct 10, 2014 2nd Hand Smoke Exposure: No Recent Foreign Travel: No Contact w/Someone Who Travel: No Recent Infectious Disease Expo: No Recent Hopitalizations: No Immunizations Up To Date Tetanus Booster (TDap): Unknown Date of Influenza Vaccine: Jan 04, 2011 Seasonal Allergies Seasonal Allergies: No Past Medical History Surgeries: Yes (PROSTATE, HERNIA REPAIR, Colon resection x2) Abdominal, Prostatectomy Respiratory: No (SMOKER/CIGARS) Currently Using CPAP: No Currently Using BIPAP: No Cardiac: Yes Deep Vein Thrombosis, Hypertension Neurological: No Reproductive Disorders: No Sexually Transmitted Disease: No HIV/AIDS: No Gastrointestinal: Yes (Hernia repair, Colon resection) Gastrointestinal Bleed, Diverticulosis Musculoskeletal: No Endocrine: No Cancer: Yes Prostate, Colon Did You Recieve Any Treatments: Yes What Type of Treatment Did You: Radiation, Surgical Intervention Psychosocial: Yes Anxiety Integumentary: No Blood Disorders: Yes (hx of SEPSIS, hx of dvt) Family Medical History Reviewed Nursing Family Hx Cancer of mouth 19 FATHER (PT UNSURE OF TYPE OF CANCER FATHER HAD) Diabetes mellitus 19 MOTHER G8 BROTHER Physical Exam Vital Signs Vital Signs - First Documented 01/11/18 01/12/18 22:09 00:40 Temp 98.7 Pulse 75 Resp 19 B/P (MAP) 132/75 (94) Pulse Ox 98 Capillary Refill : Less Than 3 Seconds Height, Weight, BMI Height: 5'4.00" Weight: 200lbs. 0.0oz. 90.740806qp; 34.3 BMI Method:Stated General Appearance: WD/WN, no apparent distress HEENT: PERRL/EOMI, normal ENT inspection Neck: normal inspection Cardiovascular: regular rate, rhythm, no edema, no murmur Respiratory: lungs clear, normal breath sounds, no respiratory distress Gastrointestinal: non tender, soft Hips: bilateral hip normal inspection, bilateral hip no evidence of injury Legs: bilateral leg non-tender, bilateral leg normal inspection, bilateral leg normal range of motion, bilateral leg no evidence of injury Knees: bilateral knee non-tender, bilateral knee normal inspection, bilateral knee normal range of motion, bilateral knee no evidence of injury Ankles: bilateral ankle non-tender, bilateral ankle normal inspection, bilateral ankle normal range of motion, bilateral ankle no evidence of injury Feet: right foot normal inspection, right foot no evidence of injury; bilateral foot other (near amputation of the left fifth toe with no significant bleeding) 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 Tissue was anesthetized with lidocaine with epinephrine. Wound was then irrigated. The remaining tissue was removed with scissors. Excess tendon was also removed. Wound was then approximated with 4-0 Prolene. It was dressed with Xeroform and sterile gauze. Pain patient tolerated the procedure well. Progress/Results/Core Measures Results/Orders Lab Results Laboratory Tests Test 01/11/18 22:12 Range/Units White Blood Count 6.4 4.3-11.0 10^3/uL Red Blood Count 3.41 L 4.35-5.85 10^6/uL Hemoglobin 11.4 L 13.3-17.7 G/DL Hematocrit 33 L 40-54 % Mean Corpuscular Volume 96 80-99 FL Mean Corpuscular Hemoglobin 33 25-34 PG Mean Corpuscular Hemoglobin Concent 35 32-36 G/DL Red Cell Distribution Width 13.9 10.0-14.5 % Platelet Count 239 130-400 10^3/uL Mean Platelet Volume 9.4 7.4-10.4 FL Neutrophils (%) (Auto) 51 42-75 % Lymphocytes (%) (Auto) 30 12-44 % Monocytes (%) (Auto) 10 0-12 % Eosinophils (%) (Auto) 9 0-10 % Basophils (%) (Auto) 0 0-10 % Neutrophils # (Auto) 3.3 1.8-7.8 X 10^3 Lymphocytes # (Auto) 1.9 1.0-4.0 X 10^3 Monocytes # (Auto) 0.6 0.0-1.0 X 10^3 Eosinophils # (Auto) 0.6 H 0.0-0.3 10^3/uL Basophils # (Auto) 0.0 0.0-0.1 10^3/uL Prothrombin Time 26.6 H 12.2-14.7 SEC INR Comment 2.4 H 0.8-1.4 Activated Partial Thromboplast Time 40 H 24-35 SEC Sodium Level 141 135-145 MMOL/L Potassium Level 3.6 3.6-5.0 MMOL/L Chloride Level 109 H 98-107 MMOL/L Carbon Dioxide Level 21 21-32 MMOL/L Anion Gap 11 5-14 MMOL/L Blood Urea Nitrogen 24 H 7-18 MG/DL Creatinine 0.99 0.60-1.30 MG/DL Estimat Glomerular Filtration Rate > 60 BUN/Creatinine Ratio 24 Glucose Level 103 70-105 MG/DL Calcium Level 10.0 8.5-10.1 MG/DL Corrected Calcium 10.0 8.5-10.1 MG/DL Total Bilirubin 0.4 0.1-1.0 MG/DL Aspartate Amino Transf (AST/SGOT) 20 5-34 U/L Alanine Aminotransferase (ALT/SGPT) 23 0-55 U/L Alkaline Phosphatase 53 40-136 U/L Total Protein 6.8 6.4-8.2 GM/DL Albumin 4.0 3.2-4.5 GM/DL My Orders Orders - NALDO GLEASON MD Cbc With Automated Diff (01/11/18 22:21) Comprehensive Metabolic Panel (01/11/18 22:21) Protime With Inr (01/11/18 22:21) Partial Thromboplastin Time (01/11/18 22:21) Foot, Left, 3 Views (01/11/18 22:21) Lidocaine/Epi 2% 1:100,000 (Xylocaine/Ep (01/11/18 23:00) Rx-Hydrocodone/Apap 5-325 Mg (Rx-Vicodin (01/12/18 00:15) Vital Signs/I&O 01/11/18 01/12/18 22:09 00:40 Temp 98.7 98.7 Pulse 75 75 Resp 19 19 B/P (MAP) 132/75 (94) 132/75 (94) Pulse Ox 98 Blood Pressure Mean: 94 Progress Progress Note : Progress Note X-rays were obtained. There was a fracture of the proximal phalanx of the little toe but no other fractures identified. Dr. Lehman was consulted and advised removal of the remaining tissue, treatment with antibiotics, repair with suture, and follow-up in the clinic. Wound was anesthetized, irrigated, and repaired. The remaining tissue was removed during repair. Patient reports he is up-to-date on his tetanus immunization. Antibiotics were prescribed. Hydrocodone was given prior to dismissal. Wound was dressed with Xeroform and sterile gauze. A postop shoe was provided. See discharge instructions. Diagnostic Imaging Diagonstic Imaging: Xray Plain Films/CT/US/NM/MRI: other Comments Left foot x-ray viewed by me. Report not yet available. There is a displaced fracture of the proximal phalanx of the left fifth toe with no other injuries identified. Departure Impression Primary Impression: Traumatic amputation of toe of left foot Qualified Codes: S98.132A - Complete traumatic amputation of one left lesser toe, initial encounter Disposition: HOME, SELF-CARE Condition: Improved Departure-Patient Inst. Decision time for Depature: 00:00 Referrals: JOSE ALEJANDRO DONALDSON MD (PCP/Family) Primary Care Physician NEREYDA LEHMAN MD Patient Instructions: Amputation of the Foot or Toe Add. Discharge Instructions: Keep the wound clean and dry. After 24 hours you may shower but do not submerge or scrub directly over the sutures. Change the dressing within 48 hours. Apply the yellow Xeroform directly over the sutures and then wrap with gauze. Follow-up with Dr. Lehman as soon as possible. Please contact his office in the morning to schedule a follow-up. You may bear weight on your foot as tolerated. Complete your antibiotics as prescribed. Monitor the wound for signs of infection such as increasing redness, increasing swelling, puslike drainage, fever, or increasing pain. Return to care promptly if you notice these problems. Elevate the foot when possible at rest. You may wear the postop shoe or a soft shoe such as a house shoe if tolerated. Use your pain medications as prescribed. Have your INR monitored closely while you are on antibiotics. It would be advisable to have your INR checked again toward the end of this week. All discharge instructions reviewed with patient and/or family. Voiced understanding. Scripts Sulfamethoxazole/Trimethoprim (Bactrim Ds Tablet) 1 Each Tablet 1 EACH PO BID, #20 TAB Prov: NALDO GLEASON MD 01/12/18 Hydrocodone/Acetaminophen (Hydrocodone-Acetamin 5-325 mg) 1 Each Tablet 0.5-1 EACH PO Q4-6HR PRN for PAIN-MODERATE, #15 TAB Prov: NALDO GLEASON MD 01/12/18 Copy Copies To 1: JOSE ALEJANDRO DONALDSON MD Copies To 2: NEREYDA LEHMAN MD, JOSHUA T MD Jan 12, 2018 00:23
[2018-01-12] MEDS ORDERED: SULF1TAB35 PO (00:24)
[2018-01-12 00:40] VITALS: BP 132/75
--- NOTE | 2018-01-12 08:24 | Diagnostic Imaging Report ---
EXAMINATION: Left foot at 1034 AM INDICATION: Laceration to toes Three views were obtained. The prior left foot exam of 02/21/2016 noted a nondisplaced fracture of the distal phalanx of the great toe. That fracture has healed. However, in the interval since the prior exam a displaced fracture of the base of the proximal phalanx of the fifth digit has developed. The distal fracture fragment is displaced laterally by half the width of the phalangeal shaft. There is no other fracture or acute bony abnormality appreciated. 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 These findings are similar to the prior study. The soft tissues are unremarkable. In particular, there is no sign of a radiopaque foreign body. IMPRESSION: There is a displaced fracture of the proximal phalanx of the fifth digit. There is no acute bony abnormality noted otherwise. Dictated by: Dictated on workstation # [id number]
== END 2018-01-12 00:45 | disposition home or self-care (01) ==
LOC: EDUNIT# 22:06 → ER 22:08
DX: S98.132A Complete traumatic amputation of one left lesser toe, initial encounter (principal); I10 Essential (primary) hypertension; F41.9 Anxiety disorder, unspecified; Z85.46 Personal history of malignant neoplasm of prostate; Z85.038 Personal history of other malignant neoplasm of large intestine; Z79.82 Long term (current) use of aspirin; Z80.0 Family history of malignant neoplasm of digestive organs; Z79.01 Long term (current) use of anticoagulants; Z87.891 Personal history of nicotine dependence; Z98.890 Other specified postprocedural states; Z87.19 Personal history of other diseases of the digestive system; Z90.49 Acquired absence of other specified parts of digestive tract; W26.8XXA Contact with other sharp object(s), not elsewhere classified, initial encounter
CPT/HCPCS: 36415; 73630; 80053; 85025; 85610; 85730

== ENCOUNTER 2018-01-14 11:22 | Emergency (ER) | payer MEDICARE ==
[~2018-01-14] VITALS: Ht 162.6 cm; Wt 90.7 kg
[~2018-01-14 11:22] MED LIST changes: +HYDR-3812 PO; +SULF1TAB35 PO
--- NOTE | 2018-01-14 11:52 | ED Suture Removal/Wound Check ---
Suture/Wound Re-check General Appearance: WD/WN, no apparent distress Skin Exam: normal color, warm/dry Comments Minimal erythema surrounding the wound extending about 2-3 cm proximal. No fluctuance, minimal tenderness. No drainage. The wound is clean dry and intact. Looks to be healing very well. Dressing was changed, new Xeroform gauze was applied and wrapped with gauze roll. Physical Exam Vital Signs Vital Signs - First Documented 01/14/18 11:39 Pulse 80 Resp 18 B/P (MAP) 117/83 Pulse Ox 97 O2 Delivery Room Air Capillary Refill : General Appearance: WD/WN, no apparent distress Respiratory: no respiratory distress, no accessory muscle use Skin: normal color, warm/dry Skin Problem Location: lower extremities Skin Problem Character: other (as mentioned previously) Departure Impression Primary Impression: Encounter for wound re-check Disposition: 01 HOME, SELF-CARE Condition: Stable Departure-Patient Inst. Decision time for Depature: 11:52 Referrals: JOSE ALEJANDRO DONALDSON MD (PCP/Family) Primary Care Physician NEREYDA LEHMAN MD Patient Instructions: Wound Care (DC) Add. Discharge Instructions: Return to ER for any fevers, swelling, increasing redness or other concerns. Continue to take pain medication and antibiotics as directed. Change the dressing every other day. Call Dr. Lehman today to make an appointment to be seen for follow-up. All discharge instructions reviewed with patient and/or family. Voiced understanding. TJ FLOWER APRN Jan 14, 2018 11:52
[2018-01-14 11:57] VITALS: BP 117/83
== END 2018-01-14 11:57 | disposition home or self-care (01) ==
LOC: EDUNIT# 11:22 → ER 11:24
DX: S98.132D Complete traumatic amputation of one left lesser toe, subsequent encounter (principal); X58.XXXD Exposure to other specified factors, subsequent encounter
CPT/HCPCS: 99282

== ENCOUNTER 2018-01-26 14:13 | Outpatient (RCR) | payer MEDICARE ==
[2018-01-19 08:23] LABS: BASOPHILS % (AUTO) 0 % (0-10); EOSINOPHILS # (AUTO) 0.5 10^3/uL (0.0-0.3); EOSINOPHILS % (AUTO) 8 % (0-10); HEMATOCRIT 34 % (40-54); HEMOGLOBIN 11.5 G/DL (13.3-17.7); LYMPHOCYTES # (AUTO) 1.4 X 10^3 (1.0-4.0); LYMPHOCYTES % (AUTO) 24 % (12-44); MEAN CORPUSCULAR HEMOGLOBIN 33 PG (25-34); MEAN CORPUSCULAR HGB CONC 34 G/DL (32-36); MEAN CORPUSCULAR VOLUME 97 FL (80-99); MEAN PLATELET VOLUME 9.2 FL (7.4-10.4); MONOCYTES # (AUTO) 0.5 X 10^3 (0.0-1.0); MONOCYTES % (AUTO) 9 % (0-12); NEUTROPHILS # (AUTO) 3.5 X 10^3 (1.8-7.8); NEUTROPHILS % (AUTO) 59 % (42-75); PLATELET COUNT 331 10^3/uL (130-400); RED BLOOD COUNT 3.53 10^6/uL (4.35-5.85); RED CELL DISTRIBUTION WIDTH 14.2 % (10.0-14.5); WHITE BLOOD COUNT 5.9 10^3/uL (4.3-11.0)
[2018-01-19 08:47] LABS: BILIRUBIN,TOTAL 0.5 MG/DL (0.1-1.0); CALCIUM 10.4 MG/DL (8.5-10.1); CREATININE SERUM 1.34 MG/DL (0.60-1.30); POTASSIUM 4.9 MMOL/L (3.6-5.0); TOTAL PROTEIN 7.3 GM/DL (6.4-8.2)
== END 2018-04-19 | disposition home or self-care (01) ==
LOC: ONC 14:13
PROVIDERS: ATTEND Internal Medicine Hematology & Oncology
DX: C61 Malignant neoplasm of prostate (principal); C79.51 Secondary malignant neoplasm of bone; Z85.038 Personal history of other malignant neoplasm of large intestine; D64.9 Anemia, unspecified; E83.52 Hypercalcemia; Z86.718 Personal history of other venous thrombosis and embolism; Z79.01 Long term (current) use of anticoagulants; Z79.899 Other long term (current) drug therapy; Z90.49 Acquired absence of other specified parts of digestive tract
CPT/HCPCS: 36415; 80053; 82378; 84153; 85025; 99213

== ENCOUNTER 2018-02-20 09:03 | Emergency (ER) | payer MEDICARE ==
[~2018-02-20] VITALS: Ht 170.2 cm; Wt 79.4 kg
--- OUTSIDE RECORDS SUMMARY | 2018-02-20 09:10 | XMS REPORT | Clinical Summary ---
Author Author [facility] Organization [facility] Address Unknown Phone Unavailable Care Team Providers Care Helicopter Pilot Name Role Phone Maldonado Melo PA-C Unavailable Joo Harris MD Unavailable Pamela Gallardo MD PCP Source Comments Some departments are not documenting in the electronic medical record. If you do not see the information that you expected, contact Release of Information in the Health Information Management department at [phone] for further assistance in locating additional records.[facility] Allergies No Known Allergies Current Medications [...] 1 tablet by mouth as Active Needed. calcium carb and Take 1 tablet by mouth Active citrate-vit D3 (CITRACAL twice daily. + D SLOW RELEASE) 600 mg calcium- 500 unit ER tablet pseudoephedrine (SUDAFED) Take 60 mg by mouth every Active 30 mg tablet 4 hours as needed for Congestion. carboxymethyl/glycerin/po Place into or around Active ly80 (REFRESH OPTIVE eye(s) as Needed. ADVANCED OP) atorvastatin (LIPITOR) 20 TAKE 1 TABLET BY MOUTH 90 tablet 1 10/10/19 Active mg tablet ONCE DAILY 18 carvedilol (COREG) 6.25 TAKE 1 TABLET BY MOUTH 180 tablet 1 12/17/19 Active mg tablet TWICE DAILY WITH MEALS 18 amLODIPine (NORVASC) 2.5 TAKE ONE TABLET BY MOUTH 90 tablet 1 Active mg tablet ONCE DAILY 18 Active Problems Problem Noted Date Candidal dermatitis 06/04/2016 Last Assessment & Plan: Recommend topical antifungal powder prn. Mood changes 01/29/2016 Last Assessment & Plan: Recommend f/u [...] -- 09/03/2006; Dr. Harris pT3b N0 Mx, Happy 4+3=7 w/ Tertiary 5, (+)margins. Biochemical recurrence [...] -- 09/03/2006; Dr. Harris pT3b N0 Mx, Happy 4+3=7 w/ Tertiary 5, (+)margins. Biochemical recurrence [...] Encounters Date Type Specialty Care Team Description 01/13/2018 Hospital Oncology Darrell Gorman MD Encounter 12/29/2017 Refill Cardiology Darrell Velez MD Medication Refill (amlodipine) 12/16/2017 Refill Cardiology Darrell Velez MD Medication Refill (carvediolol) 11/24/2017 Telephone Urology Maldonado Melo PA-C Results (PSA) 11/23/2017 Hospital Lab Maldonado Melo PA-C Malignant neoplasm of Encounter prostate (HCC) from Last 3 Months Family History Medical [...] Vital Sign Reading Time Taken Blood Pressure 155/56 01/13/2018 12:45 PM CDT Pulse 75 01/13/2018 12:45 PM CDT Temperature 36.7 C (98.1 F) 01/13/2018 12:45 PM CDT Respiratory Rate 16 01/13/2018 12:45 PM CDT Oxygen Saturation 100% 01/13/2018 12:45 PM CDT Inhaled Oxygen - - Concentration Weight 90.9 kg (200 lb 6.4 oz) 07/28/2017 11:02 AM CDT Height 162.6 cm (5' 4") 07/28/2017 11:02 AM CDT Body Mass Index 34.4 07/28/2017 11:02 AM CDT Plan of Treatment Health Maintenance Due Date Last Done Comments PHYSICAL (COMPREHENSIVE) 08/18/1937 EXAM DTAP/TDAP VACCINES (1 - 08/18/1949 Tdap) SHINGLES RECOMBINANT 08/18/1981 VACCINE (1 of 2) PNEUMONIA (PCV13/PPSV23) 08/18/1996 VACCINES (1 of 2 - PCV13) INFLUENZA VACCINE 11/04/2017 01/18/2010 Procedures Procedure Name Priority Date/Time Associated Diagnosis Comments PROSTATIC SPECIFIC Routine 11/23/2017 Prostate cancer Results for this ANTIGEN-PSA 3:20 PM CDT 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 therapy from Last 3 Months Results * PROSTATIC SPECIFIC ANTIGEN-PSA (11/23/2017 3:20 PM) Prostatic Specific 0.24 <6.01 NG/ML [facility] Antigen Comment: REFERENCE RANGES AGEPSA VALUE <50<=1.5 50-54 <=2.0 55-59 <=3.0 60-69 <=4.0 70+<=6.0 Specimen Blood Performing Organization Address City/State/Zipcode Phone Number [facility] [address] [place] [address] from Last 3 Months
--- OUTSIDE RECORDS SUMMARY | 2018-02-20 09:10 | XMS REPORT | Encounter Summary ---
Author Author [facility] Organization [facility] Address Unknown Phone Unavailable Care Team Providers Care Top And Seat Cover Fitter Name Role Phone Maldonado Melo PA-C Unavailable Joo Harris MD Unavailable Pamela Gallardo MD PCP Reason for Visit * Treatment (Routine) Status Reason Specialty Diagnoses / Referred By Referred To Procedures Contact Contact Authorized Oncology Diagnoses Joo Harris J Prostate cancer MD Wilton Núñez MD ([facility]) [address] [place] [address] metastatic to [place] [address] [facility] bone (HCC) [place] [address] [place] [phone] Phone: multiple sites Hypogonadism, male Fax: Androgen [phone] deprivation therapy P rocedures leuprolide(+) 4 month (LUPRON DEPOT) Encounter Details Date Type Department Care Team Description 01/13/2018 Hospital [facility] Darrell Gorman MD Encounter [facility] [address] [place] [address] [facility] [place] [phone] [facility] [address] [place], [place] [phone] Social History Tobacco Use Types Packs/Day Years [...] ONE TABLET BY MOUTH 90 tablet 1 2017 mg tablet ONCE DAILY aspirin 81 mg chewable Take 1 Tab by mouth 90 Tab 3 10/07/2014 tablet daily. atorvastatin (LIPITOR) 20 TAKE 1 TABLET BY MOUTH 90 tablet 1 2017 mg tablet ONCE DAILY calcium carb and Take 1 tablet by mouth citrate-vit D3 (CITRACAL twice daily. + D SLOW RELEASE) 600 mg calcium- 500 unit ER tablet carboxymethyl/glycerin/po Place into or around ly80 (REFRESH OPTIVE eye(s) as Needed. ADVANCED OP) carvedilol (COREG) 6.25 TAKE 1 TABLET BY MOUTH 180 tablet 1 2017 [...] as of this encounter Progress Notes * Janie Garcia RN - 01/13/2018 12:47 PM CDT Patient received Lupron and tolerated without difficulty. No pertinent changes since last assessment. in this encounter Miscellaneous Notes * Addendum Note - Shikha Chen - 01/13/2018 11:59 PM CDT Encounter addended by: Shikha Chen on: 01/18/2018 11:39 AM
Actions taken: Charge Capture section accepted in this encounter Plan of Treatment Not on fileas of this encounter Visit Diagnoses Diagnosis Androgen deprivation therapy Encounter for therapeutic drug monitoring Prostate cancer metastatic to bone (HCC) Prostate cancer (HCC) Malignant neoplasm of prostate Administered Medications Medication Order MAR Action Action Date Dose Rate Site leuprolide(+) 4 month (LUPRON DEPOT) Given 01/13/2018 30 mg Abdomen: RLQ injection 30 mg 12:44 CDT 30 mg, Intramuscular, ONCE, 1 dose, Thu01/13/18 at 1245, NURSING: For IM administration only. NOTE: This is a HIGH ALERT Medication. in this encounter
--- OUTSIDE RECORDS SUMMARY | 2018-02-20 09:11 | XMS REPORT | Encounter Summary ---
Author Author [facility] Organization [facility] Address Unknown Phone Unavailable Care Team Providers Care Cda Teacher Name Role Phone Maldonado Melo PA-C Unavailable Joo Harris MD Unavailable Pamela Gallardo MD PCP Reason for Visit * Reason Comments Results PSA Encounter Details Date Type Department Care Team Description 11/24/2017 Telephone [facility] Maldonado Melo PA-C Results (PSA) Physicians - Urology [address] [facility] [address] [place] [address] [address] [facility] [phone] [place] [address] Social History Tobacco Use Types Packs/Day Years Used Date Former Smoker Cigars, Cigarettes Quit: 09/04/2014 Smokeless Tobacco: Never Used Comments: 2-5 cigars/ day. Alcohol Use Drinks/Week oz/Week Comments Yes 0.0 Sex Assigned at Date Recorded Not on file as of this encounter Miscellaneous Notes * Telephone Encounter - Maldonado Melo PA-C - 11/25/2017 1:44 PM CDT Formatting of this note may be different from the original. Called pt w/ PSA result. I read the results verbatim & then explained them in non-medical terms. PSA slightly higher than prior results Lab Results Component Value Date PSA 0.24 11/23/2017 RTC as scheduled w/ Dr. Gorman w/ PSA ~ 1 wk prior. Pt demonstrated an understanding & agrees w/ plan. Laz Melo PA-C Urology Non-Urgent Medical Question You routed conversation to You 1 hour ago (11/25/2017 @ 12:18 PM) Darrell Harris MD 3 hours ago (9:48 AM) This is Darrell Brown-- date--31 I received a message on my home phone to call J"yamilka Ramirez @ [phone] option 2" to review lab results, etc---I cannot reach a Laz Ramirez--when I do make a selection i 'm returned to the lagging machine operator who trys to make a selection--one time I received the "receiving Dock" Can you let me know what I should do? Thanks Returning call Received: 11/25/2017 Message Contents Joelle Lopez James, PA-C Mr. Brown called, returning your phone call. Joelle Trejo in this encounter Plan of Treatment Not on fileas of this encounter Visit Diagnoses Not on filein this encounter
--- OUTSIDE RECORDS SUMMARY | 2018-02-20 09:11 | XMS REPORT | Encounter Summary ---
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
--- OUTSIDE RECORDS SUMMARY | 2018-02-20 09:11 | XMS REPORT | Encounter Summary ---
Author Author [facility] Organization [facility] Address Unknown Phone Unavailable Care Team Providers Care Sales Operations Manager Name Role Phone Maldonado Melo PA-C Unavailable Joo Harris MD Unavailable Brijesh West RN Unavailable Unavailable Pamela Gallardo MD PCP Encounter Details Date Type Department Care Team Description 11/23/2017 Hospital [facility] Maldonado Melo PA-C Malignant neoplasm of Encounter [facility] 1st fl [address] prostate (HCC) [address] [place] [address] [place] [address] [phone] Social History Tobacco Use Types Packs/Day Years [...] (REFRESH OPTIVE eye(s) as Needed. ADVANCED OP) docusate (COLACE) 100 mg Take 100 mg [...] needed (Thursday, Thursday, Thursday, , Thursday, Thursday). amLODIPine (NORVASC) 2.5 TAKE ONE TABLET BY MOUTH 90 tablet 3 201612/29/2017 mg tablet ONCE DAILY carvedilol (COREG) 6.25 TAKE ONE TABLET BY MOUTH 180 tablet 1 201712/16/2017 mg tablet TWICE DAILY WITH MEALS as of this encounter Plan of Treatment Not on fileas of this encounter Procedures Procedure Name Priority Date/Time Associated Diagnosis Comments PROSTATIC SPECIFIC Routine 11/23/2017 Prostate cancer Results for this ANTIGEN-PSA 3:20 PM CDT 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 therapy in this encounter Results * PROSTATIC SPECIFIC ANTIGEN-PSA (11/23/2017 3:20 PM) Prostatic Specific 0.24 <6.01 NG/ML [facility] Antigen Comment: REFERENCE RANGES AGEPSA VALUE <50<=1.5 50-54 <=2.0 55-59 <=3.0 60-69 <=4.0 70+<=6.0 Specimen Blood Performing Organization Address City/State/Zipcode Phone Number [facility]IN [facility] [address] [place] [address] in this encounter Visit Diagnoses Diagnosis Prostate cancer metastatic to bone (HCC) Androgen deprivation therapy Encounter for therapeutic drug monitoring Admitting Diagnoses Diagnosis Malignant neoplasm of prostate (HCC) Malignant neoplasm of prostate
--- OUTSIDE RECORDS SUMMARY | 2018-02-20 09:11 | XMS REPORT | Encounter Summary ---
Author Author [facility] Organization [facility] Address Unknown Phone Unavailable Care Team Providers Care Activities Assistant Name Role Phone Maldonado Melo PA-C Unavailable Joo Harris MD Unavailable Pamela Gallardo MD PCP Reason for Visit * Reason Comments Medication Refill amlodipine Encounter Details Date Type Department Care Team Description 12/29/2017 Refill Cardiovascular Medicine Darrell Velez MD Medication Refill [facility] [id number] Forwarding Address (amlodipine) [address] [place] [address] Social History Tobacco Use Types [...]
--- OUTSIDE RECORDS SUMMARY | 2018-02-20 09:13 | XMS REPORT | CCD ---
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 Unknown Has never used illegal drugs 11/21/2015 Allergies, Adverse Reactions, Alerts Substance Reaction Codes Entered Date Inactivated Date Status * NO KNOWN DRUG ALLERGIES Unknown 11/21/2015 No Inactive Date Active Past Medical History Illness Codes Condition Status Onset Date Resolved Date Cellulitis of left lower limb ICD-9: 682.7 ICD-10: L03.116 Active 01/28/2018 Unknown Encounter for immunization ICD-9: V04.81 ICD-10: Z23 Active 01/02/2016 Unknown Essential (primary) hypertension ICD-9: 401.1 ICD-10: I10 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/2016 Unknown correction (current) use of anticoagulants ICD-9: V58.61 ICD-10: Z79.01 Active 06/16/2016 Unknown Nocturia ICD-9: 788.43 ICD-10: R35.1 Active 12/29/2017 Unknown Urge incontinence ICD- 9: 788.31 ICD-10: N39.41 Active 09/29/2017 Unknown Mixed hyperlipidemia ICD-9: 272.2 ICD-10: E78.2 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/2016 Unknown 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 Active 11/07/2016 Unknown Unsteadiness on feet ICD-9: 781.2 ICD-10: R26.81 Active 03/16/2017 Unknown Gross hematuria ICD-9 : 599.71 ICD-10: R31.0 Active 07/08/2016 Unknown Hematuria, unspecified ICD-9: 599.70 ICD-10: R31.9 Active 03/12/2016 Unknown Impacted cerumen, bilateral ICD-9: 380.4 ICD-10: H61.23 Active 11/20/2015 Unknown Problems Condition Codes Effective Dates Condition Status Cellulitis of left lower limb ICD-9: 682.7 ICD-10: L03.116 01/28/2018 Active Encounter for immunization ICD-9: V04.81 ICD-10: Z23 01/02/2016 Active Essential (primary) hypertension ICD-9: 401.1 ICD-10: I10 01/30/2016 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 ICD-9: V58.61 ICD-10: Z79.01 06/16/2016 Active Nocturia ICD-9: 788.43 ICD-10: R35.1 12/29/2017 Active Urge incontinence ICD- 9: 788.31 ICD-10: N39.41 09/29/2017 Active Mixed hyperlipidemia ICD-9: 272.2 ICD-10: E78.2 01/30/2016 Active 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 11/07/2016 Active Unsteadiness on feet ICD-9: 781.2 ICD-10: R26.81 03/16/2017 Active Gross hematuria ICD-9 : 599.71 ICD-10: R31.0 07/08/2016 Active Hematuria, unspecified ICD-9: 599.70 ICD-10: R31.9 03/12/2016 Active Impacted cerumen, bilateral ICD-9: 380.4 ICD-10: H61.23 11/20/2015 Active Medications Medication Codes Instructions Start Date Stop Date Status Fill Instructions Bactrim DS 800 mg-160 mg tablet RxNorm: 559472 1 Tablet(s) PO BID 01/28/2018 02/06/2018 Inactive warfarin 5 mg tablet RxNorm: 419779 1 Tablet(s) PO UD on Thursday - goal for INR is 2.3 12/25/2017 08/21/2018 Active warfarin 7.5 mg tablet RxNorm: 367633 1 Tablet(s) PO daily except Sat take 5mg 12/25/2017 12/19/2018 Active Lovenox 40 mg/0.4 mL subcutaneous syringe RxNorm: 652095 1 Milliliter(s) SQ BID 10/14/2017 No Stop Date Active Holding coumadin x 5 days. Start the day after stopping coumadin for procedure. Hold the day of surgery. The day after surgery resume BID x 4 days. Vesicare 10 mg tablet RxNorm: 294084 1 Tablet(s) PO QPM 2017 No Stop Date Active lisinopril 20 mg tablet RxNorm: 564532 TAKE ONE TABLET BY MOUTH ONCE DAILY 06/23/2017 No Stop Date Active warfarin 5 mg tablet RxNorm: 120144 1 Tablet(s) PO UD on Thursday and - goal for INR is 2.3 02/11/2017 10/08/2017 Inactive lisinopril 20 mg tablet RxNorm: 209999 1 Tablet(s) PO daily 06/22/2017 Inactive warfarin 7.5 mg tablet RxNorm: 736446 1 Tablet(s) PO daily except 10/14/2016 10/08/2017 Inactive warfarin 5 mg tablet RxNorm: 039910 1 Tablet(s) PO UD on Thursday and - goal for INR is 2.3 10/14/2016 02/10/2017 Inactive warfarin 5 mg tablet RxNorm: 279099 1 Tablet(s) PO UD on Thursday10/14/2016 10/13/2016 Inactive warfarin 7.5 mg tablet RxNorm: 783816 1 Tablet(s) PO daily 10/13/2016 Inactive warfarin 7.5 mg tablet RxNorm: 222441 1 Tablet(s) PO daily 03/201708/17/2016 Inactive Norvasc 5 mg tablet RxNorm: 567780 1 Tablet(s) PO QPM 201512/14/2016 Inactive aspirin 81 mg chewable tablet RxNorm: 024684 1 Tablet(s) PO daily No Start Date Active amlodipine 2.5 mg tablet RxNorm: 443242 1 Tablet(s) PO daily No Start Date Active PreserVision AREDS 2 oral RxNorm: 6414133 oral No Start Date Active Citracal + D3 (calcium phosphate) oral RxNorm: 9364607 oral No Start Date Active Centrum Silver tablet RxNorm: 1 Tablet(s) PO daily No Start Date Active Colace 100 mg capsule RxNorm: 8416335 1-2 Capsule(s) PO as needed constipation No Start Date Active Imodium A-D 2 mg tablet RxNorm: 486123 1 Tablet(s) PO as needed diarrhea No Start Date Active atorvastatin 20 mg tablet RxNorm: 115970 1 Tablet(s) PO daily No Start Date Active carvedilol 6.25 mg tablet RxNorm: 374652 1 Tablet(s) PO BID No Start Date Active Lupron Depot intramuscular RxNorm: 318574 intramuscular No Start Date Active Lovenox 40 mg/0.4 mL subcutaneous syringe RxNorm: 358542 1 Milliliter(s) SQ BID No Start Date 10/13/2017 Inactive Holding coumadin x 5 days. Start the day after stopping coumadin for procedure. Hold the day of surgery. The day after surgery resume BID x 4 days. warfarin 5 mg tablet RxNorm: 986840 1 Tablet(s) PO every other day No Start Date 10/13/2016 Inactive warfarin 7.5 mg tablet RxNorm: 409176 1 Tablet(s) PO every other day No Start Date 07/15/2016 Inactive lisinopril 20 mg tablet RxNorm: 541917 1 Tablet(s) PO daily No Start Date 12/28/2016 Inactive clopidogrel 75 mg tablet RxNorm: 071815 1 Tablet(s) PO daily No Start Date 03/10/2016 Inactive Medication Administered No Medication Administered data Immunizations Vaccine Codes Date Status Influenza CVX: 141 01/04/2018 completed Influenza CVX: 141 01/03/2016 completed Assessments Condition Codes Effective Dates Cellulitis of left lower limb ICD-10: L03.116 ICD-9: 682.7 01/28/2018 Encounter for immunization ICD-10: Z23 ICD-9: V04.81 01/04/2018 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 ICD-10: Z79.01 ICD-9: V58.61 12/29/2017 Essential (primary) hypertension ICD-10: I10 ICD-9: 401.1 12/29/2017 Nocturia ICD-10: R35.1 ICD-9: 788.43 12/29/2017 Urge incontinence ICD-10: N39.41 ICD-9: 788.31 09/29/2017 Mixed hyperlipidemia ICD-10: E78.2 ICD-9: 272.2 08/11/2017 Unsteadiness on feet ICD-10: R26.81 ICD-9: 781.2 03/16/2017 Iron deficiency anemia secondary to blood loss (chronic) ICD -10: D50.0 ICD-9: 280.0 03/16/2017 Gross hematuria ICD-10: R31.0 ICD-9: 599.71 11/07/2016 Hematuria, unspecified ICD-10: R31.9 ICD-9: 599.70 03/13/2016 Impacted cerumen, bilateral ICD-10: H61.23 ICD-9: 380.4 11/21/2015 Reason For Visit Reason For Visit Effective Dates Notes foot pain 01/28/2018 vaccination against influenza 01/04/2018 nocturia 12/29/2017 Hospital Follow Up 09/29/2017 hypertension 08/11/2017 hypertension 03/16/2017 hypertension 12/15/2016 anemia 11/07/2016 hypertension 10/14/2016 hypertension 09/10/2016 hematuria 07/08/2016 hypertension 06/16/2016 hypertension 01/31/2016 hypertension 01/03/2016 hypertension 11/21/2015 Results Observation Observation Code Item Item Code Result Date Pt Qff3087 PT 28.9 seconds 02/15/2018 Pt Xcg6736 INR 2.8 02/15/2018 Pt Kkx9370 Low Intensity - 1.5-2.0 02/15/2018 Pt Cja7311 Mod intensity - 2.0-3.0 02/15/2018 Pt Oiy5352 Hi intensity - 3.0-4.0 02/15/2018 Pt Rbl8773 PT 27.2 seconds 02/02/2018 Pt Wcb3327 INR 2.6 02/02/2018 Pt Pny9745 Low Intensity - 1.5-2.0 02/02/2018 Pt Ffx8022 Mod intensity - 2.0-3.0 02/02/2018 Pt Uqd0870 Hi intensity - 3.0-4.0 02/02/2018 Pt Jql2882 PT 18.2 seconds 01/28/2018 Pt Fwu5979 INR 1.6 01/28/2018 Pt Zxx0649 Low Intensity - 1.5-2.0 01/28/2018 Pt Sne3160 Mod intensity - 2.0-3.0 01/28/2018 Pt Dsn4881 Hi intensity - 3.0-4.0 01/28/2018 Pt Pxc6289 PT 19.8 seconds 01/22/2018 Pt Qwx0322 INR 1.7 01/22/2018 Pt Isk8902 Low Intensity - 1.5-2.0 01/22/2018 Pt Gta5934 Mod intensity - 2.0-3.0 01/22/2018 Pt Bgb2400 Hi intensity - 3.0-4.0 01/22/2018 Pt Xyx7895 PT 38.3 seconds 01/15/2018 Pt Sgx0748 INR 3.8 01/15/2018 Pt Rjx4657 Low Intensity - 1.5-2.0 01/15/2018 Pt Skz2663 Mod intensity - 2.0-3.0 01/15/2018 Pt Asa1953 Hi intensity - 3.0-4.0 01/15/2018 Pt Wdz1841 PT 27.1 seconds 01/05/2018 Pt Qeb2028 INR 2.5 01/05/2018 Pt Zko9096 Low Intensity - 1.5-2.0 01/05/2018 Pt Dpk0897 Mod intensity - 2.0-3.0 01/05/2018 Pt Hhk3759 Hi intensity - 3.0-4.0 01/05/2018 Pt Npy7756 PT 27.2 seconds 12/25/2017 Pt Qsb5983 INR 2.5 12/25/2017 Pt Xxr9040 Low Intensity - 1.5-2.0 12/25/2017 Pt Iqp7741 Mod intensity - 2.0-3.0 12/25/2017 Pt Fwj0773 Hi intensity - 3.0-4.0 12/25/2017 Pt Lkj2602 PT 22.2 seconds 12/09/2017 Pt Haz2549 INR 2.0 12/09/2017 Pt Wec9075 Low Intensity - 1.5-2.0 12/09/2017 Pt Zsk6896 Mod intensity - 2.0-3.0 12/09/2017 Pt Jsk2074 Hi intensity - 3.0-4.0 12/09/2017 Pt Wqi4321 PT 20.5 seconds 11/27/2017 Pt Fyi4730 INR 1.8 11/27/2017 Pt Rxo3412 Low Intensity - 1.5-2.0 11/27/2017 Pt Fwj2515 Mod intensity - 2.0-3.0 11/27/2017 Pt Fob9140 Hi intensity - 3.0-4.0 11/27/2017 Pt Crl6130 PT 16.8 seconds 11/23/2017 Pt Iyk2828 INR 1.4 11/23/2017 Pt Jen1948 Low Intensity - 1.5-2.0 11/23/2017 Pt Rha3185 Mod intensity - 2.0-3.0 11/23/2017 Pt Uue8862 Hi intensity - 3.0-4.0 11/23/2017 Pt Cil7356 PT 13.4 seconds 11/20/2017 Pt Hjk6115 INR 1.1 11/20/2017 Pt Hsr6259 Low Intensity - 1.5-2.0 11/20/2017 Pt Sdb4770 Mod intensity - 2.0-3.0 11/20/2017 Pt Hth8331 Hi intensity - 3.0-4.0 11/20/2017 Pt Neq3442 PT 29.3 seconds 09/22/2017 Pt Qux0096 INR 2.7 09/22/2017 Pt Det5237 Low Intensity - 1.5-2.0 09/22/2017 Pt Gef3250 Mod intensity - 2.0-3.0 09/22/2017 Pt Jnn4262 Hi intensity - 3.0-4.0 09/22/2017 Pt Eni9196 PT 24.6 seconds 08/27/2017 Pt Xxv6399 INR 2.2 08/27/2017 Pt Bqa3106 Low Intensity - 1.5-2.0 08/27/2017 Pt Bmo7379 Mod intensity - 2.0-3.0 08/27/2017 Pt Sfr6683 Hi intensity - 3.0-4.0 08/27/2017 Pt Ppq5159 PT 24.9 seconds 08/03/2017 Pt Xsg1253 INR 2.3 08/03/2017 Pt Uqc0552 Low Intensity - 1.5-2.0 08/03/2017 Pt Bhj9963 Mod intensity - 2.0-3.0 08/03/2017 Pt Ctd4990 Hi intensity - 3.0-4.0 08/03/2017 Pt Jau8406 PT 24.4 seconds 06/17/2017 Pt Wqh9164 INR 2.2 06/17/2017 Pt Lsl7585 Low Intensity - 1.5-2.0 06/17/2017 Pt Usn8200 Mod intensity - 2.0-3.0 06/17/2017 Pt Yhn7045 Hi intensity - 3.0-4.0 06/17/2017 Pt Idj6933 PT 26.8 seconds 06/01/2017 Pt Lmk4645 INR 2.5 06/01/2017 Pt Nsp2074 Low Intensity - 1.5-2.0 06/01/2017 Pt Lbt4322 Mod intensity - 2.0-3.0 06/01/2017 Pt Dgu3579 Hi intensity - 3.0-4.0 06/01/2017 Pt Poj7707 PT 18.8 seconds 05/18/2017 Pt Dow2775 INR 1.6 05/18/2017 Pt Rgr2768 Low Intensity - 1.5-2.0 05/18/2017 Pt Yus7268 Mod intensity - 2.0-3.0 05/18/2017 Pt Xjh5556 Hi intensity - 3.0-4.0 05/18/2017 Pt Fia2148 PT 18.6 seconds 04/27/2017 Pt Que6024 INR 1.6 04/27/2017 Pt Avz6260 Low Intensity - 1.5-2.0 04/27/2017 Pt Kyp4326 Mod intensity - 2.0-3.0 04/27/2017 Pt Dhj5266 Hi intensity - 3.0-4.0 04/27/2017 Pt Ebu9918 PT 26.1 seconds 04/13/2017 Pt Pfh7639 INR 2.4 04/13/2017 Pt Jfj3360 Low Intensity - 1.5-2.0 04/13/2017 Pt Yvh4754 Mod intensity - 2.0-3.0 04/13/2017 Pt Pgj4705 Hi intensity - 3.0-4.0 04/13/2017 Lipid Ord30 CHOL 115 mg/dL 03/17/2017 Lipid Ord30 HDL 54.0 mg/dl 03/17/2017 Lipid Ord30 TRIG 94 mg/dL 03/17/2017 Lipid Ord30 LDL 42 mg/dL 03/17/2017 Lipid Ord30 C/HDL 2.1 Ratio 03/17/2017 Comp Metabolic Mfo626 NA 140 mEq/L 03/17/2017 Comp Metabolic Nup839 K 4.4 mEq/L 03/17/2017 Comp Metabolic Ced122 CL 104 mEq/L 03/17/2017 Comp Metabolic Vvv556 CO2 30.0 mEq/L 03/17/2017 Comp Metabolic Bpz916 ANION GAP 10 03/17/2017 Comp Metabolic Huw034 GLUCOSE 122 mg/dL 03/17/2017 Comp Metabolic Vyd557 Creat 0.9 mg/dL 03/17/2017 Comp Metabolic Tcd772 eGFR 82 ml/min/1.73m2 03/17/2017 Comp Metabolic Smk592 BUN 22 mg/dL 03/17/2017 Comp Metabolic Ldi048 B/C Ratio 23.7 Ratio 03/17/2017 Comp Metabolic Vua967 CALCIUM 10.3 mg/dL 03/17/2017 Comp Metabolic Olx049 ALK PHOS 62 U/L 03/17/2017 Comp Metabolic Yos747 AST(SGOT) 19 U/L 03/17/2017 Comp Metabolic Gll966 ALT(SGPT) 21 U/L 03/17/2017 Comp Metabolic Nsa517 BILI T 0.5 mg/dL 03/17/2017 Comp Metabolic Aeh038 ALBUMIN 4.1 g/dL 03/17/2017 Comp Metabolic Deu867 TPRO 6.9 g/dL 03/17/2017 Comp Metabolic Jzq204 GLOB 2.8 g/dL 03/17/2017 Comp Metabolic Zwv483 A/G Ratio 1.5 Ratio 03/17/2017 Comp Metabolic Pke817 Osmo 284 mOsmo 03/17/2017 Comp Metabolic Sjs846 NA 140 mEq/L 03/17/2017 Comp Metabolic Lyz750 K 4.4 mEq/L 03/17/2017 Comp Metabolic Khl937 CL 104 mEq/L 03/17/2017 Comp Metabolic Mpd344 CO2 30.0 mEq/L 03/17/2017 Comp Metabolic Kok702 ANION GAP 10 03/17/2017 Comp Metabolic Lud094 GLUCOSE 122 mg/dL 03/17/2017 Comp Metabolic Nhl091 Creat 0.9 mg/dL 03/17/2017 Comp Metabolic Awc311 eGFR 82 ml/min/1.73m2 03/17/2017 Comp Metabolic Ouh117 BUN 22 mg/dL 03/17/2017 Comp Metabolic Cjr249 B/C Ratio 23.7 Ratio 03/17/2017 Comp Metabolic Tdr814 CALCIUM 10.3 mg/dL 03/17/2017 Comp Metabolic Bvf999 ALK PHOS 62 U/L 03/17/2017 Comp Metabolic Elp068 AST(SGOT) 19 U/L 03/17/2017 Comp Metabolic Uzw062 ALT(SGPT) 21 U/L 03/17/2017 Comp Metabolic Lta067 BILI T 0.5 mg/dL 03/17/2017 Comp Metabolic Kak297 ALBUMIN 4.1 g/dL 03/17/2017 Comp Metabolic Mgv274 TPRO 6.9 g/dL 03/17/2017 Comp Metabolic Uuj575 GLOB 2.8 g/dL 03/17/2017 Comp Metabolic Fvd156 A/G Ratio 1.5 Ratio 03/17/2017 Comp Metabolic Qvg083 Osmo 284 mOsmo 03/17/2017 Lipid Ord30 CHOL 115 mg/dL 03/17/2017 Lipid Ord30 HDL 54.0 mg/dl 03/17/2017 Lipid Ord30 TRIG 94 mg/dL 03/17/2017 Lipid Ord30 LDL 42 mg/dL 03/17/2017 Lipid Ord30 C/HDL 2.1 Ratio 03/17/2017 Pt Erw8038 PT 23.7 seconds 03/12/2017 Pt Zlf8480 INR 2.1 03/12/2017 Pt Bnv8708 Low Intensity - 1.5-2.0 03/12/2017 Pt Fwo6715 Mod intensity - 2.0-3.0 03/12/2017 Pt Oek2620 Hi intensity - 3.0-4.0 03/12/2017 Pt Sth3690 PT 21.3 seconds 02/10/2017 Pt Oyw2234 INR 1.9 02/10/2017 Pt Ocz0281 Low Intensity - 1.5-2.0 02/10/2017 Pt Pgc7161 Mod intensity - 2.0-3.0 02/10/2017 Pt Mxv7266 Hi intensity - 3.0-4.0 02/10/2017 Pt Pqr1993 PT 21.4 seconds 01/27/2017 Pt Jwg7098 INR 1.9 01/27/2017 Pt Hrd4639 Low Intensity - 1.5-2.0 01/27/2017 Pt Lrj1925 Mod intensity - 2.0-3.0 01/27/2017 Pt Lyd3046 Hi intensity - 3.0-4.0 01/27/2017 Pt Myq0305 PT 22.0 seconds 01/19/2017 Pt Phd5626 INR 1.9 01/19/2017 Pt Dez4263 Low Intensity - 1.5-2.0 01/19/2017 Pt Llo9759 Mod intensity - 2.0-3.0 01/19/2017 Pt Ggk5078 Hi intensity - 3.0-4.0 01/19/2017 Pt Jqa1622 PT 28.3 seconds 01/05/2017 Pt Jef9966 INR 2.6 01/05/2017 Pt Zgg0924 Low Intensity - 1.5-2.0 01/05/2017 Pt Ldp6621 Mod intensity - 2.0-3.0 01/05/2017 Pt Kwk7006 Hi intensity - 3.0-4.0 01/05/2017 Pt Umt5702 PT 29.1 seconds 12/15/2016 Pt Bui7008 INR 2.7 12/15/2016 Pt Pkj7898 Low Intensity - 1.5-2.0 12/15/2016 Pt Rnc5997 Mod intensity - 2.0-3.0 12/15/2016 Pt Vha4006 Hi intensity - 3.0-4.0 12/15/2016 Urine Culture Ucult Preliminary NO Growth Day 1 11/10/2016 Urine Culture Ucult Complete NO Growth Day 2 11/10/2016 Pt Cst6410 PT 23.7 seconds 11/07/2016 Pt Esc7477 INR 2.1 11/07/2016 Pt Yfj3167 Low Intensity - 1.5-2.0 11/07/2016 Pt Bez2171 Mod intensity - 2.0-3.0 11/07/2016 Pt Ckr8361 Hi intensity - 3.0-4.0 11/07/2016 Pt Ity2791 PT 27.1 seconds 10/13/2016 Pt Dpq4589 INR 2.7 10/13/2016 Pt Rvk1424 Low Intensity - 1.5-2.0 10/13/2016 Pt Fgw9556 Mod intensity - 2.0-3.0 10/13/2016 Pt Xhb5240 Hi intensity - 3.0-4.0 10/13/2016 Pt Ltp0519 PT 26.3 seconds 09/23/2016 Pt Hpi6455 INR 2.6 09/23/2016 Pt Umz3309 Low Intensity - 1.5-2.0 09/23/2016 Pt Ruf6078 Mod intensity - 2.0-3.0 09/23/2016 Pt Uuf4576 Hi intensity - 3.0-4.0 09/23/2016 Pt Btd3385 PT 20.4 seconds 09/09/2016 Pt Brl4173 INR 1.8 09/09/2016 Pt Eve1126 Low Intensity - 1.5-2.0 09/09/2016 Pt Kwm1383 Mod intensity - 2.0-3.0 09/09/2016 Pt Ofy0498 Hi intensity - 3.0-4.0 09/09/2016 Pt Lqc4961 PT 24.1 seconds 08/26/2016 Pt Jmt1163 INR 2.3 08/26/2016 Pt Mun9660 Low Intensity - 1.5-2.0 08/26/2016 Pt Qvi3585 Mod intensity - 2.0-3.0 08/26/2016 Pt Shy3500 Hi intensity - 3.0-4.0 08/26/2016 Pt Sun5170 PT 26.1 seconds 08/12/2016 Pt Ntz0442 INR 2.6 08/12/2016 Pt Xkj1974 Low Intensity - 1.5-2.0 08/12/2016 Pt Wqk0709 Mod intensity - 2.0-3.0 08/12/2016 Pt Dzt6619 Hi intensity - 3.0-4.0 08/12/2016 Pt Fka2803 PT 23.5 seconds 07/15/2016 Pt Xem1781 INR 2.2 07/15/2016 Pt Qma7197 Low Intensity - 1.5-2.0 07/15/2016 Pt Eba6466 Mod intensity - 2.0-3.0 07/15/2016 Pt Ikk3202 Hi intensity - 3.0-4.0 07/15/2016 Urine Culture Ucult Preliminary NO Growth Day 1 07/10/2016 Urine Culture Ucult Complete NO Growth Day 2 07/10/2016 Pt Kwq1538 PT 27.9 seconds 06/30/2016 Pt Rji2702 INR 2.8 06/30/2016 Pt Tki9394 Low Intensity - 1.5-2.0 06/30/2016 Pt Xsv4721 Mod intensity - 2.0-3.0 06/30/2016 Pt Xgb8975 Hi intensity - 3.0-4.0 06/30/2016 Pt Brp8628 PT 23.7 seconds 06/12/2016 Pt Tiy6083 INR 2.3 06/12/2016 Pt Xfs3368 Low Intensity - 1.5-2.0 06/12/2016 Pt Zkx7936 Mod intensity - 2.0-3.0 06/12/2016 Pt Bxu1345 Hi intensity - 3.0-4.0 06/12/2016 Pt Aza2464 PT 36.5 seconds 06/06/2016 Pt Dkb7468 INR 4.0 06/06/2016 Pt Bdm1140 Low Intensity - 1.5-2.0 06/06/2016 Pt Iud7511 Mod intensity - 2.0-3.0 06/06/2016 Pt Nzm5874 Hi intensity - 3.0-4.0 06/06/2016 Tibc Ord40 Iron 76 ug/dl 05/05/2016 Tibc Ord40 UIBC 210 ug/dL 05/05/2016 Tibc Ord40 TIBC 286 ug/dL 05/05/2016 Tibc Ord40 Fe-%Sat 26.6 % 05/05/2016 Pt Uyz8109 PT 29.0 seconds 05/05/2016 Pt Igd8859 INR 2.9 05/05/2016 Pt Xux8867 Low Intensity - 1.5-2.0 05/05/2016 Pt Hwd9063 Mod intensity - 2.0-3.0 05/05/2016 Pt Suc9974 Hi intensity - 3.0-4.0 05/05/2016 Ferritin Ord22 FERRITIN 32.7 ng/mL 05/05/2016 Pt Izu6396 PT 31.1 seconds 04/08/2016 Pt Hrz8372 INR 3.2 04/08/2016 Pt Zmm1151 Low Intensity - 1.5-2.0 04/08/2016 Pt Lzq3084 Mod intensity - 2.0-3.0 04/08/2016 Pt Jyw6346 Hi intensity - 3.0-4.0 04/08/2016 Cbc With Differential Ord2 WBC 6.64 K/ul 03/24/2016 Cbc With Differential Ord2 RBC 3.70 M/ul 03/24/2016 Cbc With Differential Ord2 HGB 12.0 g/dl 03/24/2016 Cbc With Differential Ord2 HCT 35.4 % 03/24/2016 Cbc With Differential Ord2 Neut% 45.5 % 03/24/2016 Cbc With Differential Ord2 Lymph% 34.5 % 03/24/2016 Cbc With Differential Ord2 MCV 95.7 fl 03/24/2016 Cbc With Differential Ord2 [place]% 11.3 % 03/24/2016 Cbc With Differential Ord2 MCH 32.4 pg 03/24/2016 Cbc With Differential Ord2 MCHC 33.9 pg 03/24/2016 Cbc With Differential Ord2 Eos% 8.1 % 03/24/2016 Cbc With Differential Ord2 PLT 279 K/ul 03/24/2016 Cbc With Differential Ord2 Baso% 0.6 % 03/24/2016 Cbc With Differential Ord2 Neut ABS# 3.02 K/ul 03/24/2016 Cbc With Differential Ord2 RDW 14.3 % 03/24/2016 Cbc With Differential Ord2 Lymph ABS# 2.29 K/ul 03/24/2016 Cbc With Differential Ord2 [place] ABS# 0.8 K/ul 03/24/2016 Cbc With Differential Ord2 Eos ABS# 0.5 K/ul 03/24/2016 Cbc With Differential Ord2 Baso ABS# 0.0 K/ul 03/24/2016 Pt Ybj5223 PT 17.3 seconds 03/24/2016 Pt Hkh4976 INR 1.5 03/24/2016 Pt Bah5487 Low Intensity - 1.5-2.0 03/24/2016 Pt Cht7043 Mod intensity - 2.0-3.0 03/24/2016 Pt Fok5255 Hi intensity - 3.0-4.0 03/24/2016 Pt Qlj5058 PT 17.8 seconds 03/12/2016 Pt Sox6483 INR 1.5 03/12/2016 Pt Syh5005 Low Intensity - 1.5-2.0 03/12/2016 Pt Aux3094 Mod intensity - 2.0-3.0 03/12/2016 Pt Fbs4204 Hi intensity - 3.0-4.0 03/12/2016 Urine Culture Ucult Complete NO Growth Day 2 02/29/2016 Urine Culture Ucult Preliminary NO Growth Day 1 02/29/2016 Lipid Ord30 CHOL 129 mg/dL 02/21/2016 Lipid Ord30 HDL 59.0 mg/dl 02/21/2016 Lipid Ord30 TRIG 90 mg/dL 02/21/2016 Lipid Ord30 LDL 52 mg/dL 02/21/2016 Lipid Ord30 C/HDL 2.2 Ratio 02/21/2016 Comp Metabolic Pgv994 NA 136 mEq/L 02/21/2016 Comp Metabolic Bbj350 K 4.4 mEq/L 02/21/2016 Comp Metabolic Adl102 CL 102 mEq/L 02/21/2016 Comp Metabolic Clq223 CO2 29.0 mEq/L 02/21/2016 Comp Metabolic Eat757 ANION GAP 9 02/21/2016 Comp Metabolic Wjv580 GLUCOSE 118 mg/dL 02/21/2016 Comp Metabolic Mkd861 Creat 1.0 mg/dL 02/21/2016 Comp Metabolic Crh023 eGFR 72 ml/min/1.73m2 02/21/2016 Comp Metabolic Zya978 BUN 23 mg/dL 02/21/2016 Comp Metabolic Zpf127 B/C Ratio 22.1 Ratio 02/21/2016 Comp Metabolic Bbk391 CALCIUM 9.9 mg/dL 02/21/2016 Comp Metabolic Puf065 ALK PHOS 57 U/L 02/21/2016 Comp Metabolic Qwb026 AST(SGOT) 17 U/L 02/21/2016 Comp Metabolic Kzt544 ALT(SGPT) 19 U/L 02/21/2016 Comp Metabolic Ugl422 BILI T 0.6 mg/dL 02/21/2016 Comp Metabolic Vfs693 ALBUMIN 3.9 g/dL 02/21/2016 Comp Metabolic Bwo401 TPRO 6.9 g/dL 02/21/2016 Comp Metabolic Hpf653 GLOB 3.0 g/dL 02/21/2016 Comp Metabolic Pva667 A/G Ratio 1.3 Ratio 02/21/2016 Comp Metabolic Nzi732 Osmo 277 mOsmo 02/21/2016 Pt Izb3586 PT 19.8 seconds 02/21/2016 Pt Pdv4984 INR 1.8 02/21/2016 Pt Kti5729 Low Intensity - 1.5-2.0 02/21/2016 Pt Cxz3252 Mod intensity - 2.0-3.0 02/21/2016 Pt Skv7667 Hi intensity - 3.0-4.0 02/21/2016 Pt Jog9311 PT 24.1 seconds 01/15/2016 Pt Jzt0834 INR 2.3 01/15/2016 Pt Dup4624 Low Intensity - 1.5-2.0 01/15/2016 Pt Uii5469 Mod intensity - 2.0-3.0 01/15/2016 Pt Fgs1972 Hi intensity - 3.0-4.0 01/15/2016 Pt Qbz4694 PT 26.5 seconds 01/03/2016 Pt Gyc3998 INR 2.6 01/03/2016 Pt [id number] Low Intensity - 1.5-2.0 01/03/2016 Pt [id number] Mod intensity - 2.0-3.0 01/03/2016 Pt [id number] Hi intensity - 3.0-4.0 01/03/2016 Pt [id number] PT 15.3 seconds 11/30/2015 Pt [id number] INR 1.3 11/30/2015 Pt [id number] Low Intensity - 1.5-2.0 11/30/2015 Pt [id number] Mod intensity - 2.0-3.0 11/30/2015 Pt [id number] Hi intensity - 3.0-4.0 11/30/2015 Review of Systems System Result Effective Dates Constitutional No recent illness 2017 Constitutional No chills 01/28/2018 Constitutional No diaphoresis 01/28/2018 Constitutional No fever 01/28/2018 Eyes No eye erythema 01/28/2018 Ears/Nose/Throat/Neck No nasal discharge 01/28/2018 Respiratory No dyspnea 01/28/2018 Musculoskeletal joint complaint 2017 Dermatologic erythema 01/28/2018 Neurologic No alteration of consciousness 01/28/2018 Neurologic No mental status change 2017 Constitutional No recent illness 2017 Constitutional No chills 12/29/2017 Constitutional fatigue 12/29/2017 Constitutional No fever 12/29/2017 Constitutional No malaise 12/29/2017 Eyes No blindness 12/29/2017 Eyes No vision change 12/29/2017 Ears/Nose/Throat/Neck No dental pain Ears/Nose/Throat/Neck No dizziness 2017 Ears/Nose/Throat/Neck No dysphagia 2017 Ears/Nose/Throat/Neck No headache 2017 Ears/Nose/Throat/Neck No hearing loss Ears/Nose/Throat/Neck No nasal allergies 12/29/2017 Ears/Nose/Throat/Neck No sore throat Ears/Nose/Throat/Neck No postnasal drip 12/29/2017 Ears/Nose/Throat/Neck No sinus congestion 12/29/2017 Cardiovascular No chest pain/pressure Cardiovascular No dyspnea 12/29/2017 Cardiovascular No edema 12/29/2017 Cardiovascular No exercise intolerance Cardiovascular No fatigue 12/29/2017 Cardiovascular hypertension 12/29/2017 Cardiovascular No near-syncope/dizziness 12/29/2017 Respiratory No chest tightness 2017 Respiratory No cough 12/29/2017 Respiratory No dyspnea 12/29/2017 Respiratory No pedal edema 12/29/2017 Gastrointestinal No abdominal pain 2017 Gastrointestinal No constipation 2017 Gastrointestinal No diarrhea 12/29/2017 Gastrointestinal No gastroesophageal reflux 12/29/2017 Gastrointestinal No nausea 12/29/2017 Gastrointestinal No vomiting 12/29/2017 Genitourinary/Nephrology No dysuria 12/29 Genitourinary/Nephrology hematuria 2017 Genitourinary/Nephrology nocturia 2017 Genitourinary/Nephrology No urinary incontinence 12/29/2017 Musculoskeletal No stiffness 12/29/2017 Musculoskeletal No swelling 12/29/2017 Musculoskeletal No muscle weakness 2017 Musculoskeletal No myalgias 12/29/2017 Dermatologic No rash 12/29/2017 Neurologic No dizziness 12/29/2017 Neurologic No headache 12/29/2017 Neurologic No neck pain 12/29/2017 Neurologic No syncope 12/29/2017 Psychiatric No anxiety 12/29/2017 Psychiatric No depression 12/29/2017 Constitutional No recent illness 2017 Constitutional No chills 09/29/2017 Constitutional fatigue 09/29/2017 Constitutional No fever 09/29/2017 Constitutional No malaise 09/29/2017 Eyes No blindness 09/29/2017 Eyes No vision change 09/29/2017 Ears/Nose/Throat/Neck No dental pain Ears/Nose/Throat/Neck No dizziness 2017 Ears/Nose/Throat/Neck No dysphagia 2017 Ears/Nose/Throat/Neck No headache 2017 Ears/Nose/Throat/Neck No hearing loss Ears/Nose/Throat/Neck No nasal allergies 09/29/2017 Ears/Nose/Throat/Neck No sore throat Ears/Nose/Throat/Neck No postnasal drip 09/29/2017 Ears/Nose/Throat/Neck No sinus congestion 09/29/2017 Cardiovascular No chest pain/pressure Cardiovascular No dyspnea 09/29/2017 Cardiovascular No edema 09/29/2017 Cardiovascular No exercise intolerance Cardiovascular No fatigue 09/29/2017 Cardiovascular hypertension 09/29/2017 Cardiovascular No near-syncope/dizziness 09/29/2017 Respiratory No chest tightness 2017 Respiratory No cough 09/29/2017 Respiratory No dyspnea 09/29/2017 Respiratory No pedal edema 09/29/2017 Gastrointestinal No abdominal pain 2017 Gastrointestinal No constipation 2017 Gastrointestinal No diarrhea 09/29/2017 Gastrointestinal No gastroesophageal reflux 09/29/2017 Gastrointestinal No nausea 09/29/2017 Gastrointestinal No vomiting 09/29/2017 Genitourinary/Nephrology No dysuria 09/29 Genitourinary/Nephrology hematuria 2017 Genitourinary/Nephrology No nocturia Genitourinary/Nephrology urinary incontinence 09/29/2017 Musculoskeletal No stiffness 09/29/2017 Musculoskeletal No swelling 09/29/2017 Musculoskeletal No muscle weakness 2017 Musculoskeletal No myalgias 09/29/2017 Dermatologic No rash 09/29/2017 Neurologic No dizziness 09/29/2017 Neurologic No headache 09/29/2017 Neurologic No neck pain 09/29/2017 Neurologic No syncope 09/29/2017 Psychiatric No anxiety 09/29/2017 Psychiatric No depression 09/29/2017 Genitourinary/Nephrology urinary urgency 09/29/2017 Constitutional No recent illness 2017 Constitutional No chills 08/11/2017 Constitutional fatigue 08/11/2017 Constitutional No fever 08/11/2017 Constitutional No malaise 08/11/2017 Eyes No blindness 08/11/2017 Eyes No vision change 08/11/2017 Ears/Nose/Throat/Neck No dental pain 11/2017 Ears/Nose/Throat/Neck No dizziness 2017 Ears/Nose/Throat/Neck No dysphagia 2017 Ears/Nose/Throat/Neck No headache 2017 Ears/Nose/Throat/Neck No hearing loss 11/2017 Ears/Nose/Throat/Neck No nasal allergies 08/11/2017 Ears/Nose/Throat/Neck No sore throat 11/2017 Ears/Nose/Throat/Neck No postnasal drip 08/11/2017 Ears/Nose/Throat/Neck No sinus congestion 08/11/2017 Cardiovascular No chest pain/pressure 11/2017 Cardiovascular No dyspnea 08/11/2017 Cardiovascular No edema 08/11/2017 Cardiovascular No exercise intolerance Cardiovascular No fatigue 08/11/2017 Cardiovascular hypertension 08/11/2017 Cardiovascular No near-syncope/dizziness 08/11/2017 Respiratory No chest tightness 2017 Respiratory No cough 08/11/2017 Respiratory No dyspnea 08/11/2017 Respiratory No pedal edema 08/11/2017 Gastrointestinal No abdominal pain 2017 Gastrointestinal No constipation 2017 Gastrointestinal No diarrhea 08/11/2017 Gastrointestinal No gastroesophageal reflux 08/11/2017 Gastrointestinal No nausea 08/11/2017 Gastrointestinal No vomiting 08/11/2017 Genitourinary/Nephrology No dysuria 08/11 Genitourinary/Nephrology hematuria 2017 Genitourinary/Nephrology No nocturia 11/2017 Genitourinary/Nephrology No urinary incontinence 08/11/2017 Musculoskeletal No stiffness 08/11/2017 Musculoskeletal No swelling 08/11/2017 Musculoskeletal No muscle weakness 2017 Musculoskeletal No myalgias 08/11/2017 Dermatologic No rash 08/11/2017 Neurologic No dizziness 08/11/2017 Neurologic No headache 08/11/2017 Neurologic No neck pain 08/11/2017 Neurologic No syncope 08/11/2017 Psychiatric No anxiety 08/11/2017 Psychiatric No depression 08/11/2017 Constitutional No recent illness 2016 Constitutional No [...] Result Effective Dates Notes Full Exam - Dermatology Constitutional general appearance Overall: well nourished 01/28/2018 None Full Exam - Dermatology Constitutional general appearance Overall: well developed 01/28/2018 None Full Exam - Dermatology Constitutional general appearance Overall: in no acute distress 01/28/2018 None Full Exam - Dermatology Eyes conjunctiva/ eyelids Overall: clear conjunctiva bilaterally 01/28/2018 None Full Exam - Dermatology Eyes conjunctiva/ eyelids Overall: clear corneas 01/28/2018 None Full Exam - Dermatology Eyes conjunctiva/ eyelids Overall: normal eyelids 01/28/2018 None Full Exam - Dermatology Ears/Nose/Throat lips/teeth/gingiva Overall: benign lips 01/28/2018 None Full Exam - Dermatology Ears/Nose/Throat oropharynx Overall: clear oral mucosa 01/28/2018 None Full Exam - Dermatology Respiratory respiratory effort/rhythm Overall: normal rate 01/28/2018 None Full Exam - Dermatology Respiratory respiratory effort/rhythm Overall: no retractions 01/28/2018 None Full Exam - Dermatology Musculoskeletal gait and station Overall: normal station 01/28/2018 None Full Exam - Dermatology Musculoskeletal gait and station Overall: normal gait 01/28/2018 None Full Exam - Dermatology Integument insp & palp - left lower extremity Location: on the foot 01/28/2018 None Full Exam - Dermatology Integument insp & palp - left lower extremity Color: erythematous 01/28/2018 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 stitches in place - edges well approximated no erythema at incision site. Full Exam - Dermatology Psychiatric orientation Overall: oriented to person, place and time 01/28/2018 None Full Exam - Dermatology Psychiatric mood and affect Overall: normal mood and affect 01/28/2018 None Full Exam - General 1994 Constitutional general appearance Development: well developed 12/29/2017 None Full Exam - General 1994 Constitutional general appearance Development: appears stated age 0912/29/2017 None Full Exam - General 1994 Constitutional general appearance Hygiene/Attention to Grooming: good hygiene 12/29/2017 None Full Exam - General 1994 Eyes conjunctiva /eyelids Overall: conjunctiva clear 12/29/2017 None Full Exam - General 1994 Eyes conjunctiva /eyelids Overall: cornea clear 12/29/2017 None Full Exam - General 1994 Eyes conjunctiva /eyelids Overall: eyelids normal 12/29/2017 None Full Exam - General 1994 Eyes pupils and irises Overall: pupils equal, round, reactive to light and accomodation 12/29/2017 None Full Exam - General 1994 Ears/Nose/Throat otoscopic exam External auditory canal: complete cerumen impaction 12/29/2017 None Full Exam - General 1994 Ears/Nose/Throat lips/teeth/gingiva Overall: benign lips 12/29/2017 None Full Exam - General 1994 Ears/Nose/Throat lips/teeth/gingiva Overall: normal dentition 12/29/2017 None Full Exam - General 1994 Ears/Nose/Throat oral cavity/pharynx/larynx Overall: oral mucosa clear 12/29/2017 None Full Exam - General 1994 Ears/Nose/Throat oral cavity/pharynx/larynx Overall: oropharyngeal mucosa clear 12/29/2017 None Full Exam - General 1994 Ears/Nose/Throat oral cavity/pharynx/larynx Overall: hypopharynx benign 12/29/2017 None Full Exam - General 1994 Ears/Nose/Throat oral cavity/pharynx/larynx Overall: no masses 12/29/2017 None Full Exam - General 1994 Respiratory auscultation Overall: breath sounds clear bilaterally 12/29/2017 None Full Exam - General 1994 Respiratory respiratory effort/rhythm Overall: no retractions 12/29/2017 None Full Exam - General 1994 Respiratory respiratory effort/rhythm Overall: normal rate 12/29/2017 None Full Exam - General 1994 Cardiovascular extremities Overall: no clubbing 12/29/2017 None Full Exam - General 1994 Cardiovascular auscultation of heart Overall: regular rate 12/29/2017 None Full Exam - General 1994 Cardiovascular auscultation of heart Overall: normal heart sounds 12/29/2017 None Full Exam - General 1994 Abdomen abdominal exam Overall: no tenderness 12/29/2017 None Full Exam - General 1994 Abdomen abdominal exam Overall: normal bowel sounds 12/29/2017 None Full Exam - General 1994 Musculoskeletal spine, ribs and pelvis Overall: spine benign 12/29/2017 None Full Exam - General 1994 Musculoskeletal spine, ribs and pelvis Overall: sacroiliac joint benign 12/29/2017 None Full Exam - General 1994 Musculoskeletal spine, ribs and pelvis Overall: good posture 12/29/2017 None Full Exam - General 1994 Musculoskeletal head and neck Overall: head atraumatic 12/29/2017 None Full Exam - General 1994 Musculoskeletal head and neck Overall: cervical spine benign 12/29/2017 None Full Exam - General 1994 Neurologic deep tendon reflexes Overall: deep tendon reflexes intact 12/29/2017 None Full Exam - General 1994 Neurologic cranial nerves Overall: crainial nerves 2 - 12 grossly intact 12/29/2017 None Full Exam - General 1994 Psychiatric orientation/consciousness Overall: oriented to person, place and time 12/29/2017 None Full Exam - General 1994 Psychiatric mood and affect Overall: normal mood and affect 12/29/2017 None Full Exam - General 1994 Constitutional general appearance Development: well developed 09/29/2017 None Full Exam - General 1994 Constitutional general appearance Development: appears stated age 0609/29/2017 None Full Exam - General 1994 Constitutional general appearance Hygiene/Attention to Grooming: good hygiene 09/29/2017 None Full Exam - General 1994 Eyes conjunctiva /eyelids Overall: conjunctiva clear 09/29/2017 None Full Exam - General 1994 Eyes conjunctiva /eyelids Overall: cornea clear 09/29/2017 None Full Exam - General 1994 Eyes conjunctiva /eyelids Overall: eyelids normal 09/29/2017 None Full Exam - General 1994 Eyes pupils and irises Overall: pupils equal, round, reactive to light and accomodation 09/29/2017 None Full Exam - General 1994 Ears/Nose/Throat otoscopic exam External auditory canal: complete cerumen impaction 09/29/2017 None Full Exam - General 1994 Ears/Nose/Throat lips/teeth/gingiva Overall: benign lips 09/29/2017 None Full Exam - General 1994 Ears/Nose/Throat lips/teeth/gingiva Overall: normal dentition 09/29/2017 None Full Exam - General 1994 Ears/Nose/Throat oral cavity/pharynx/larynx Overall: oral mucosa clear 09/29/2017 None Full Exam - General 1994 Ears/Nose/Throat oral cavity/pharynx/larynx Overall: oropharyngeal mucosa clear 09/29/2017 None Full Exam - General 1994 Ears/Nose/Throat oral cavity/pharynx/larynx Overall: hypopharynx benign 09/29/2017 None Full Exam - General 1994 Ears/Nose/Throat oral cavity/pharynx/larynx Overall: no masses 09/29/2017 None Full Exam - General 1994 Respiratory auscultation Overall: breath sounds clear bilaterally 09/29/2017 None Full Exam - General 1994 Respiratory respiratory effort/rhythm Overall: no retractions 09/29/2017 None Full Exam - General 1994 Respiratory respiratory effort/rhythm Overall: normal rate 09/29/2017 None Full Exam - General 1994 Cardiovascular extremities Overall: no clubbing 09/29/2017 None Full Exam - General 1994 Cardiovascular auscultation of heart Overall: regular rate 09/29/2017 None Full Exam - General 1994 Cardiovascular auscultation of heart Overall: normal heart sounds 09/29/2017 None Full Exam - General 1994 Abdomen abdominal exam Overall: no tenderness 09/29/2017 None Full Exam - General 1994 Abdomen abdominal exam Overall: normal bowel sounds 09/29/2017 None Full Exam - General 1994 Musculoskeletal spine, ribs and pelvis Overall: spine benign 09/29/2017 None Full Exam - General 1994 Musculoskeletal spine, ribs and pelvis Overall: sacroiliac joint benign 09/29/2017 None Full Exam - General 1994 Musculoskeletal spine, ribs and pelvis Overall: good posture 09/29/2017 None Full Exam - General 1994 Musculoskeletal head and neck Overall: head atraumatic 09/29/2017 None Full Exam - General 1994 Musculoskeletal head and neck Overall: cervical spine benign 09/29/2017 None Full Exam - General 1994 Neurologic deep tendon reflexes Overall: deep tendon reflexes intact 09/29/2017 None Full Exam - General 1994 Neurologic cranial nerves Overall: crainial nerves 2 - 12 grossly intact 09/29/2017 None Full Exam - General 1994 Psychiatric orientation/consciousness Overall: oriented to person, place and time 09/29/2017 None Full Exam - General 1994 Psychiatric mood and affect Overall: normal mood and affect 09/29/2017 None Full Exam - General 1994 Constitutional general appearance Development: well developed 08/11/2017 None Full Exam - General 1994 Constitutional general appearance Development: appears stated age 0508/11/2017 None Full Exam - General 1994 Constitutional general appearance Hygiene/Attention to Grooming: good hygiene 08/11/2017 None Full Exam - General 1994 Eyes conjunctiva /eyelids Overall: conjunctiva clear 08/11/2017 None Full Exam - General 1994 Eyes conjunctiva /eyelids Overall: cornea clear 08/11/2017 None Full Exam - General 1994 Eyes conjunctiva /eyelids Overall: eyelids normal 08/11/2017 None Full Exam - General 1994 Eyes pupils and irises Overall: pupils equal, round, reactive to light and accomodation 08/11/2017 None Full Exam - General 1994 Ears/Nose/Throat otoscopic exam External auditory canal: complete cerumen impaction 08/11/2017 None Full Exam - General 1994 Ears/Nose/Throat lips/teeth/gingiva Overall: benign lips 08/11/2017 None Full Exam - General 1994 Ears/Nose/Throat lips/teeth/gingiva Overall: normal dentition 08/11/2017 None Full Exam - General 1994 Ears/Nose/Throat oral cavity/pharynx/larynx Overall: oral mucosa clear 08/11/2017 None Full Exam - General 1994 Ears/Nose/Throat oral cavity/pharynx/larynx Overall: oropharyngeal mucosa clear 08/11/2017 None Full Exam - General 1994 Ears/Nose/Throat oral cavity/pharynx/larynx Overall: hypopharynx benign 08/11/2017 None Full Exam - General 1994 Ears/Nose/Throat oral cavity/pharynx/larynx Overall: no masses 08/11/2017 None Full Exam - General 1994 Respiratory auscultation Overall: breath sounds clear bilaterally 08/11/2017 None Full Exam - General 1994 Respiratory respiratory effort/rhythm Overall: no retractions 08/11/2017 None Full Exam - General 1994 Respiratory respiratory effort/rhythm Overall: normal rate 08/11/2017 None Full Exam - General 1994 Cardiovascular extremities Overall: no clubbing 08/11/2017 None Full Exam - General 1994 Cardiovascular auscultation of heart Overall: regular rate 08/11/2017 None Full Exam - General 1994 Cardiovascular auscultation of heart Overall: normal heart sounds 08/11/2017 None Full Exam - General 1994 Abdomen abdominal exam Overall: no tenderness 08/11/2017 None Full Exam - General 1994 Abdomen abdominal exam Overall: normal bowel sounds 08/11/2017 None Full Exam - General 1994 Musculoskeletal spine, ribs and pelvis Overall: spine benign 08/11/2017 None Full Exam - General 1994 Musculoskeletal spine, ribs and pelvis Overall: sacroiliac joint benign 08/11/2017 None Full Exam - General 1994 Musculoskeletal spine, ribs and pelvis Overall: good posture 08/11/2017 None Full Exam - General 1994 Musculoskeletal head and neck Overall: head atraumatic 08/11/2017 None Full Exam - General 1994 Musculoskeletal head and neck Overall: cervical spine benign 08/11/2017 None Full Exam - General 1994 Neurologic deep tendon reflexes Overall: deep tendon reflexes intact 08/11/2017 None Full Exam - General 1994 Neurologic cranial nerves Overall: crainial nerves 2 - 12 grossly intact 08/11/2017 None Full Exam - General 1994 Psychiatric orientation/consciousness Overall: oriented to person, place and time 08/11/2017 None Full Exam - General 1994 Psychiatric mood and affect Overall: normal mood and affect 08/11/2017 None Full Exam - General 1994 Constitutional [...] impaction 11/21/2015 None Procedures Procedure Codes Date ADMIN INFLUENZA VIRUS VAC CPT-4: G0008 01/04/2018 FLU VACC PRSV FREE INC ANTIG Formatting Model/CDA Sections, Assigned to/Arabella Carballo CPT-4: 60275Cirulrp 01/04/2018 URINALYSIS NONAUTO W/O SCOPE CPT-4: 32970 11/07/2016 URINALYSIS NONAUTO W/O SCOPE CPT-4: 75803 02/26/2016 ADMIN INFLUENZA VIRUS VAC CPT-4: G0008 01/03/2016 FLU VACC 4 ARIANNA 3 YRS PLUS IM SNOMED CT: 83485102 CPT-4: 24397 01/03/2016 Vital Signs Date Vital 01/28/2018 Blood Pressure 1: 150/60 Code : 8480-6 Heart Rate 1: 91 bpm SpO2: 92% 12/29/2017 Blood Pressure 1: 144/62 Code : 8480-6 BMI: 34.7 Code : 83453-7 Heart Rate 1 : 73 bpm Height: 5'4" SpO2: 97% Weight: 202 lbs 09/29/2017 Blood Pressure 1: 132/80 Code : 8480-6 Heart Rate 1: 76 bpm SpO2: 97% Weight: 204 lbs 08/11/2017 Blood Pressure 1: 132/66 Code : 8480-6 BMI: 35.0 Code : 35084-4 Heart Rate 1 : 81 bpm Height: 5'4" SpO2: 96% Weight: 204 lbs 03/16/2017 Blood Pressure 1: 132/70 Code : 8480-6 BMI: 34.5 Code : 03891-8 Heart Rate 1 : 78 bpm Height: 5'4" SpO2: 98% Weight: 201 lbs 12/15/2016 Blood Pressure 1: 140/80 Code : 8480-6 BMI: 34.2 Code : 51371-5 Heart Rate 1 : 69 bpm Height: 5'4" SpO2: 98% Weight: 199 lbs 11/07/2016 Blood Pressure 1: 158/82 Code : 8480-6 BMI: 34.7 Code : 88484-5 Heart Rate 1 : 76 bpm Height: 5'4" SpO2: 98% Weight: 202 lbs 10/14/2016 Blood Pressure 1: 140/80 Code : 8480-6 BMI: 34.0 Code : 00415-7 Heart Rate 1 : 79 bpm Height: 5'4" SpO2: 96% Weight: 198 lbs 09/10/2016 Blood Pressure 1: 158/80 Code : 8480-6 BMI: 34.3 Code : 88356-4 Heart Rate 1 : 75 bpm Height: 5'4" SpO2: 98% Weight: 200 lbs 07/08/2016 Blood Pressure 1: 160/74 Code : 8480-6 BMI: 35.2 Code : 34074-7 Heart Rate 1 : 94 bpm Height: 5'4" SpO2: 97% Weight: 205 lbs 06/16/2016 Blood Pressure 1: 138/76 Code : 8480-6 BMI: 35.0 Code : 97997-6 Heart Rate 1 : 68 bpm Height: 5'4" SpO2: 98% Weight: 204 lbs 01/31/2016 Blood Pressure 1: 136/64 Code : 8480-6 BMI: 33.6 Code : 41513-1 Heart Rate 1 : 92 bpm Height: 5'4" SpO2: 98% Weight: 196 lbs 01/03/2016 Blood Pressure 1: 142/68 Code : 8480-6 BMI: 33.8 Code : 02569-3 Heart Rate 1 : 80 bpm Height: 5'4" SpO2: 97% Weight: 197 lbs 11/30/2015 Blood Pressure 1: 158/80 Code : 8480-6 Heart Rate 1: 83 bpm SpO2: 98% 11/21/2015 Blood Pressure 1: 172/80 Code : 8480-6 BMI: 32.8 Code : 35551-2 Heart Rate 1 : 87 bpm Height: 5'4" SpO2: 98% Weight: 191 lbs Functional Status No Functional Status data History of Present Illness Symptom Name Status Result Effective Date Notes foot pain Location on the left 01/28/2018 None foot pain Location at the MP joint of the fifth toe 01/28/2018 None foot pain Quality intermittent 01/28/2018 None foot pain Onset of Symptom 2 weeks ago 01/28/2018 None foot pain Frequency of Episodes daily 01/28/2018 None foot pain Pertinent Findings limping 01/28/2018 None foot pain Pertinent Findings redness 01/28/2018 None foot pain Pertinent Findings swelling 01/28/2018 None nocturia Quality intermittent 12/29/2017 None nocturia Onset and Resolution ongoing 12/29/2017 None nocturia Pertinent Findings Denies back pain 12/29/2017 None nocturia Pertinent Findings Denies bladder pain 12/29/2017 None hypertension Quality chronic 12/29/2017 None hypertension Onset and Resolution ongoing 12/29/2017 None hypertension Onset of Symptom during adulthood 12/29/2017 None Hospital Follow Up _ pain 09/29/2017 left ribs Hospital Follow Up Quality acute 09/29/2017 None Hospital Follow Up Onset and Resolution resolved 09/29/2017 None nocturia Quality intermittent 09/29/2017 None nocturia Onset and Resolution ongoing 09/29/2017 None nocturia Pertinent Findings Denies back pain 09/29/2017 None nocturia Pertinent Findings Denies bladder pain 09/29/2017 None hypertension Quality primary hypertension 08/11/2017 None hypertension Onset and Resolution ongoing 08/11/2017 None hypertension Onset of Symptom during adulthood 08/11/2017 None hypertension Blood Pressure Values not checking blood pressure at home 08/11/2017 None hypertension Alleviating Factors medication 08/11/2017 None hypertension Exacerbating Factors stress 08/11/2017 None hypertension Pertinent Findings Denies dizziness 08/11/2017 --Only on rare occasions hypertension Pertinent Findings Denies dyspnea 08/11/2017 None hypertension Pertinent Findings edema 08/11/2017 in his left leg-- from a blood clot in 2006 hypertension Quality primary hypertension 03/16/2017 None hypertension [...] data Encounters Encounter Performer Location Codes Date EST. PATIENT, LEVEL III Diagnosis: Cellulitis of left lower limb[ICD10: L03.116] Octavia Gallardo MD, [facility] CPT-4: 57536 01/28/2018 ([id number]) [id number] EST. 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 PATIENT, LEVEL IV Diagnosis: Essential (primary) hypertension[ICD10: I10] Diagnosis: Urge incontinence[ICD10: N39.41] Pamela Gallardo MD, [facility] CPT-4: 59027 09/29/2017 ([id number]) [id number] EST. 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 PATIENT, LEVEL IV Diagnosis: Essential (primary) hypertension[ICD10: I10] Diagnosis: Mixed hyperlipidemia[ICD10: E78.2] Diagnosis: Gross hematuria[ICD10: R31.0] Pamela Gallardo MD, [facility] CPT- 4: 77913 10/14/2016 ([id number]) 60657 EST. PATIENT, LEVEL IV Diagnosis: Essential (primary) hypertension[ICD10: I10] Diagnosis: correction (current) use of anticoagulants[ICD10: Z79.01] Diagnosis: Mixed hyperlipidemia[ICD10: E78.2] Pamela Gallardo MD, [facility] CPT-4: 75825 09/10/2016 [id number] EST. PATIENT, LEVEL III Diagnosis: Gross hematuria[ICD10: R31.0] Octavia Gallardo MD, [facility] CPT-4 : 99765 07/08/2016 ([id number]) 70297 EST. PATIENT, LEVEL IV Diagnosis: Essential (primary) hypertension[ICD10: I10] Diagnosis: Mixed hyperlipidemia[ICD10: E78.2] Diagnosis: correction (current) use of anticoagulants[ICD10: Z79.01] Pamela Gallardo MD, [facility] CPT-4: 80419 06/16/2016 ([id number]) 33952 EST. PATIENT, LEVEL IV Diagnosis: Essential (primary) hypertension[ICD10: I10] Diagnosis: Mixed hyperlipidemia[ICD10: E78.2] Pamela Gallardo MD [facility] CPT-4: 89068 01/31/2016 ([id number]) 27940 EST. PATIENT, LEVEL IV Diagnosis: Essential (primary) hypertension[ICD10: I10] Diagnosis: Mixed hyperlipidemia[ICD10: E78.2] Diagnosis: Encounter for immunization[ICD10: Z23] Pamela Gallardo MD, [facility] CPT-4: 47964 01/03/2016 ([id number]) Miscellaneous no charge Diagnosis: Essential (primary) hypertension[ICD10: I10] [facility] CPT-4: 94398 11/30/2015 ([id number]) OFFICE VISIT, NEW - LEVEL 4 Diagnosis: Essential (primary) hypertension[ICD10: I10] Diagnosis: Mixed hyperlipidemia[ICD10: E78.2] Diagnosis: Impacted cerumen, bilateral[ICD10: H61.23] [facility] CPT-4: 81791 11/21/2015 Plan of Care Planned Activity Notes Codes Status Date Visit Plan: Cellulitis - pt is to follow up with his surgeon - continue with oral antibiotics as previously directed, return to clinic as previously directed, call for acute change in symptoms, worsening redness, warmth, discharge. 01/28/2018 Appointment: Octavia Zarate WPtel: [facility] (15 min) Moderate 01/28/2018 Patient Education: Patient Medication Summary Completed 01/28/2018 Appointment: Nurse Visit 01/15/2018 Appointment: Injection 01/04/2018 Patient Education: Patient Medication Summary Completed 01/04/2018 Visit Plan: Hypertension - well controlled - continue with current medications, continue with no added salt diet. Pt has been encouraged to exercise daily. The pt has been advised to call the office if there are any acute concerns about change in blood pressure readings at home. Chronic anticoagulation - continue with current management - check labs serially - last INR good Nocturia - continue with supportive care. 12/29/2017 Appointment: Pamela Gallardo WPtel: [address] [place], [place] [id number] [place] (15 min) Moderate 12/29/2017 Patient Education: Patient Medication Summary Completed 12/29/2017 Appointment: Pamela Gallardo WPtel: [address] [place], [place] [id number] Same Day appointments 12/16/2017 Visit Plan: Hypertension - well controlled - continue with current medications, continue with no added salt diet. Pt has been encouraged to exercise daily. The pt has been advised to call the office if there are any acute concerns about change in blood pressure readings at home. Urge incontinence - vesicare 10mg one pill nightly - call to let me know if the symptoms are improving - if not, we can try a different medication - if it has helped, we can send a script for it to the pharmacy 09/29/2017 Appointment: Pamela Gallardo WPtel: [phone] [id number] (15 min) Moderate 09/29/2017 Patient Education: Patient Medication Summary Completed 09/29/2017 Visit Plan: Hypertension - well controlled - [...] to assure normal liver response to medications. His last labs were in March of 2017 and his LDL was in the 40's, HDL was in the 50's - Chol/HDL ratio was 2.1. Chronic anticoagulation - continue with current management - check labs serially - last INR good 08/11/2017 Appointment: Pamela Gallardo WPtel: [phone] [id number] (15 min) Moderate 08/11/2017 Patient Education: Patient Medication Summary Completed 08/11/2017 [phone] [facility] [place] (15 min) Moderate 08/06/2017 Appointment: Pamela Gallardo [facility]Ptel[id number] (15 min) Moderate 08/04/2017 Visit Plan: Hypertension - well controlled - [...] monitor symptoms. 03/16/2017 Appointment: Pamela Gallardo WPtel: [phone] [facility] (15 min) Moderate 03/16/2017 Patient Education: Patient Medication Summary Completed 03/16/2017 Patient Education: Obesity Completed 03/16/2017 Appointment: Pamela Gallardo WPtel: [phone] [facility] [place] (15 min) Moderate 12/30/2016 Visit Plan: Hypertension [...] labs today. 12/15/2016 Appointment: Pamela Gallardo WPtel: [phone] [facility] (15 min) Moderate 12/15/2016 Patient Education: Patient Medication Summary Completed 12/15/2016 Visit Plan: Iron deficiency [id number]-[id number] bleeding- INR has been stable-continue multivitamin with iron daily Hematuria-3+ blood in urine-check PT/INR today-culture urine 11/07/2016 Appointment: Kelli Mccullough WPtel: [phone] (15 min) Moderate 11/07/2016 Patient Education: Patient [...] to medications. 10/14/2016 Appointment: Pamela Gallardo WPtel: [facility] (15 min) Moderate 10/14/2016 Patient Education: Patient Medication Summary Completed 10/14/2016 Patient Education: Obesity Completed 10/14/2016 Appointment: Pamela Gallardo WPtel: [facility] [place] (15 min) Moderate 10/09/2016 Visit [...] or concerns. 07/08/2016 Appointment: Octavia Zarate WPtel: [address] [place], [place] [id number] (15 min) Moderate 07/08/2016 Patient Education: Patient [...] with coumadin. 06/16/2016 Appointment: Pamela Gallardo WPtel: [phone] [facility] (15 min) Moderate 06/16/2016 Patient Education: Patient Medication Summary Completed 06/16/2016 Patient Education: Obesity Completed 06/16/2016 Appointment: Pamela Gallardo WPtel: [phone] [facility] (15 min) Moderate 05/22/2016 Patient Education: Patient [...] to medications. 01/31/2016 Appointment: Pamela Gallardo WPtel: [phone] [facility] (15 min) Moderate 01/31/2016 Patient Education: [...] to medications. 01/03/2016 [facility]ment: [phone] [facility] ([facility] min) Moderate 01/03/2016 Patient Education: Patient [...] to medications. 11/21/2015 Appointment: [phone] [facility] [facility] 11/21/2015 Patient Education: Patient Medication Summary Completed 11/21/2015 Patient Education: Obesity Completed 11/21/2015 Instructions Comment . Hypertension - well controlled - continue [...] worsen, or with any questions or concerns. Dr. Lincoln always kept INR close to [...] worsen, or with any questions or concerns. blood pressure is uncontrolled - i [...] to assure normal liver response to medications. vesicare 10mg one pill nightly - call to let me know if the symptoms are improving - if not, we can try a different medication - if it has helped, we can send a script for it to the pharmacy . Hypertension - well controlled - continue with current medications, continue with no added salt diet. Pt has been encouraged to exercise daily. The pt has been advised to call the office if there are any acute concerns about change in blood pressure readings at home. Urge incontinence - vesicare 10mg one pill nightly - call to let me know if the symptoms are improving - if not, we can try a different medication - if it has helped, we can send a script for it to the pharmacy . Iron deficiency [id number] bleeding-INR has been stable-continue multivitamin with iron [...] to assure normal liver response to medications. His last labs were in March of 2017 and his LDL was in the 40's, HDL was in the 50's - Chol/HDL ratio was 2.1. Chronic anticoagulation - continue with current management - check labs serially - last INR good . Cellulitis - pt is to follow up with his surgeon - continue with oral antibiotics as previously directed, return to clinic as previously directed, call for acute change in symptoms, worsening redness, warmth, discharge. . Hypertension - well controlled - continue [...] in blood pressure readings at home. Chronic anticoagulation - continue with current management - check labs serially - last INR good Nocturia - continue with supportive care.
--- OUTSIDE RECORDS SUMMARY | 2018-02-20 09:15 | XMS REPORT | CCD ---
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 Name Role Phone PP Unavailable CCM Unavailable Summary Purpose Interface Exchange Insurance Providers Payer name Policy type / Coverage type Covered democrat ID Effective Begin Date Effective End Date WPS Medicare Part B Medicare Part B [id number] Unknown [facility] Medicare Part B [id number] Unknown Family history Father Diagnosis Age At [...] Unknown Retired 11/21/[address]: 0979687 Former smoker Quit September 2014 11/21/[address]: 634273 Currently drinks alcohol 11/21/2015 Has the patient [...] ICD-9: 401.1 ICD-10: I10 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/2016 Unknown custodial (current) use of anticoagulants ICD-9: V58.61 ICD-10: [...] hypertension ICD-9: 401.1 ICD-10: I10 01/30/2016 Active 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 Start the day after stopping coumadin for procedure. Hold the day of surgery. The day after surgery resume BID x 4 days. Vesicare 10 mg tablet RxNorm: 873403 1 Tablet(s) PO QPM 2017 No Stop Date Active lisinopril 20 mg tablet RxNorm: 099431 TAKE ONE TABLET BY MOUTH ONCE DAILY 06/23/2017 No Stop Date Active warfarin 5 mg tablet RxNorm: 792701 1 Tablet(s) PO UD on Thursday and - goal for INR is 2.3 02/11/2017 10/08/2017 Inactive lisinopril 20 mg tablet RxNorm: 269169 1 Tablet(s) PO daily 06/22/2017 Inactive warfarin 7.5 mg tablet RxNorm: 811565 1 Tablet(s) PO daily except 10/14/2016 10/08/2017 Inactive warfarin 5 mg tablet RxNorm: 975877 1 Tablet(s) PO UD on Thursday and - goal for INR is 2.3 10/14/2016 02/10/2017 Inactive warfarin 5 mg tablet RxNorm: 445383 1 Tablet(s) PO UD on Thursday10/14/2016 10/13/2016 Inactive warfarin 7.5 mg tablet RxNorm: 417073 1 Tablet(s) PO daily 10/13/2016 Inactive warfarin 7.5 mg tablet RxNorm: 036119 1 Tablet(s) PO daily 03/201708/17/2016 Inactive Norvasc 5 mg tablet RxNorm: 005046 1 Tablet(s) PO QPM 201512/14/2016 Inactive aspirin 81 mg chewable tablet RxNorm: 450189 1 Tablet(s) PO daily No Start Date Active amlodipine 2.5 mg tablet RxNorm: 486316 1 Tablet(s) PO daily No Start Date Active PreserVision AREDS 2 oral RxNorm: 3635425 oral No Start Date Active Citracal + D3 (calcium phosphate) oral RxNorm: 4340750 oral No Start Date Active Centrum Silver tablet RxNorm: 1 Tablet(s) PO daily No Start Date Active Colace 100 mg capsule RxNorm: 8126060 1-2 Capsule(s) PO as needed constipation No Start Date Active Imodium A-D 2 mg tablet RxNorm: 794158 1 Tablet(s) PO as needed diarrhea No Start Date Active atorvastatin 20 mg tablet RxNorm: 874331 1 Tablet(s) PO daily No Start Date Active carvedilol 6.25 mg tablet RxNorm: 492542 1 Tablet(s) PO BID No Start Date Active Lupron Depot intramuscular RxNorm: 354463 intramuscular No Start Date Active Lovenox 40 mg/0.4 mL subcutaneous syringe RxNorm: 023501 1 Milliliter(s) SQ BID No Start Date 10/13/2017 Inactive Holding coumadin x 5 days. Start the day after stopping coumadin for procedure. Hold the day of surgery. The day after surgery resume BID x 4 days. warfarin 5 mg tablet RxNorm: 205722 1 Tablet(s) PO every other day No Start Date 10/13/2016 Inactive warfarin 7.5 mg tablet RxNorm: 309554 1 Tablet(s) PO every other day No Start Date 07/15/2016 Inactive lisinopril 20 mg tablet RxNorm: 086561 1 Tablet(s) PO daily No Start Date 12/28/2016 Inactive clopidogrel 75 mg tablet RxNorm: 644667 1 Tablet(s) PO daily No Start Date 03/10/2016 Inactive Medication Administered No Medication Administered data Immunizations Vaccine Codes Date Status Influenza CVX: 141 01/04/2018 completed Influenza CVX: 141 01/03/2016 completed Assessments Condition Codes Effective Dates Cellulitis of left lower limb ICD-10: L03.116 ICD-9: 682.7 01/28/2018 Encounter for immunization ICD-10: Z23 ICD-9: V04.81 01/04/2018 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 ICD-10: Z79.01 ICD-9: [...] Code Item Item Code Result Date Pt Kau2544 PT 27.2 seconds 02/02/2018 Pt Tuu5783 INR 2.6 02/02/2018 Pt Lxa5036 Low Intensity - 1.5-2.0 02/02/2018 Pt Xoo1655 Mod intensity - 2.0-3.0 02/02/2018 Pt Skk7142 Hi intensity - 3.0-4.0 02/02/2018 Pt Ynu3584 PT 18.2 seconds 01/28/2018 Pt Irt6121 INR 1.6 01/28/2018 Pt Cgv7441 Low Intensity - 1.5-2.0 01/28/2018 Pt Ghu4046 Mod intensity - 2.0-3.0 01/28/2018 Pt Nws1611 Hi intensity - 3.0-4.0 01/28/2018 Pt Tdn5066 PT 19.8 seconds 01/22/2018 Pt Huz3422 INR 1.7 01/22/2018 Pt Xoi5176 Low Intensity - 1.5-2.0 01/22/2018 Pt Wqb0364 Mod intensity - 2.0-3.0 01/22/2018 Pt Fbi8849 Hi intensity - 3.0-4.0 01/22/2018 Pt Wjp8981 PT 38.3 seconds 01/15/2018 Pt Ccu5060 INR 3.8 01/15/2018 Pt Stg7511 Low Intensity - 1.5-2.0 01/15/2018 Pt Fcb7109 Mod intensity - 2.0-3.0 01/15/2018 Pt Bdn2863 Hi intensity - 3.0-4.0 01/15/2018 Pt Had3323 PT 27.1 seconds 01/05/2018 Pt Rdb1435 INR 2.5 01/05/2018 Pt Twd2000 Low Intensity - 1.5-2.0 01/05/2018 Pt Qvz4888 Mod intensity - 2.0-3.0 01/05/2018 Pt Ziz8203 Hi intensity - 3.0-4.0 01/05/2018 Pt Dos3325 PT 27.2 seconds 12/25/2017 Pt Mtz4219 INR 2.5 12/25/2017 Pt Jab4287 Low Intensity - 1.5-2.0 12/25/2017 Pt Dvg1895 Mod intensity - 2.0-3.0 12/25/2017 Pt Uev5679 Hi intensity - 3.0-4.0 12/25/2017 Pt Csr3244 PT 22.2 seconds 12/09/2017 Pt Rkp8323 INR 2.0 12/09/2017 Pt Xuo8493 Low Intensity - 1.5-2.0 12/09/2017 Pt Zoa7242 Mod intensity - 2.0-3.0 12/09/2017 Pt Dwr8650 Hi intensity - 3.0-4.0 12/09/2017 Pt Vpz3950 PT 20.5 seconds 11/27/2017 Pt Cgi9444 INR 1.8 11/27/2017 Pt Ysc6258 Low Intensity - 1.5-2.0 11/27/2017 Pt Kye7928 Mod intensity - 2.0-3.0 11/27/2017 Pt Rrb4442 Hi intensity - 3.0-4.0 11/27/2017 Pt Ofk3975 PT 16.8 seconds 11/23/2017 Pt Adm1818 INR 1.4 11/23/2017 Pt Lfz7985 Low Intensity - 1.5-2.0 11/23/2017 Pt Gys3397 Mod intensity - 2.0-3.0 11/23/2017 Pt Cir2157 Hi intensity - 3.0-4.0 11/23/2017 Pt Hyz0833 PT 13.4 seconds 11/20/2017 Pt Lvh6225 INR 1.1 11/20/2017 Pt Gim6075 Low Intensity - 1.5-2.0 11/20/2017 Pt Jiv2142 Mod intensity - 2.0-3.0 11/20/2017 Pt Zqi7214 Hi intensity - 3.0-4.0 11/20/2017 Pt Oeh8858 PT 29.3 seconds 09/22/2017 Pt Txg3025 INR 2.7 09/22/2017 Pt Uql2962 Low Intensity - 1.5-2.0 09/22/2017 Pt Lti5158 Mod intensity - 2.0-3.0 09/22/2017 Pt Hgp1067 Hi intensity - 3.0-4.0 09/22/2017 Pt Tjr2908 PT 24.6 seconds 08/27/2017 Pt Bxu3403 INR 2.2 08/27/2017 Pt Bqu7590 Low Intensity - 1.5-2.0 08/27/2017 Pt Vrp9379 Mod intensity - 2.0-3.0 08/27/2017 Pt Hmp4575 Hi intensity - 3.0-4.0 08/27/2017 Pt Uez4612 PT 24.9 seconds 08/03/2017 Pt Ujk0770 INR 2.3 08/03/2017 Pt Eyh9491 Low Intensity - 1.5-2.0 08/03/2017 Pt Dyv2151 Mod intensity - 2.0-3.0 08/03/2017 Pt Oxq3898 Hi intensity - 3.0-4.0 08/03/2017 Pt Lxh3888 PT 24.4 seconds 06/17/2017 Pt Idf1046 INR 2.2 06/17/2017 Pt Rme5787 Low Intensity - 1.5-2.0 06/17/2017 Pt Bzr5806 Mod intensity - 2.0-3.0 06/17/2017 Pt Bjm2466 Hi intensity - 3.0-4.0 06/17/2017 Pt Uvo7180 PT 26.8 seconds 06/01/2017 Pt Udp5743 INR 2.5 06/01/2017 Pt Mcs8747 Low Intensity - 1.5-2.0 06/01/2017 Pt Hhz5126 Mod intensity - 2.0-3.0 06/01/2017 Pt Sug3976 Hi intensity - 3.0-4.0 06/01/2017 Pt Hmp5173 PT 18.8 seconds 05/18/2017 Pt Axz2886 INR 1.6 05/18/2017 Pt Rdl7771 Low Intensity - 1.5-2.0 05/18/2017 Pt Qvh0517 Mod intensity - 2.0-3.0 05/18/2017 Pt Egw2330 Hi intensity - 3.0-4.0 05/18/2017 Pt Tkh6937 PT 18.6 seconds 04/27/2017 Pt Wzc6437 INR 1.6 04/27/2017 Pt Jlh4272 Low Intensity - 1.5-2.0 04/27/2017 Pt Szm0216 Mod intensity - 2.0-3.0 04/27/2017 Pt Sqb4786 Hi intensity - 3.0-4.0 04/27/2017 Pt Tjv8308 PT 26.1 seconds 04/13/2017 Pt Tmx6971 INR 2.4 04/13/2017 Pt Gvl8396 Low Intensity - 1.5-2.0 04/13/2017 Pt Qfg9077 Mod intensity - 2.0-3.0 04/13/2017 Pt Aim1173 Hi intensity - 3.0-4.0 04/13/2017 Lipid Ord30 CHOL 115 mg/dL 03/17/2017 Lipid Ord30 HDL 54.0 mg/dl 03/17/2017 Lipid Ord30 TRIG 94 mg/dL 03/17/2017 Lipid Ord30 LDL 42 mg/dL 03/17/2017 Lipid Ord30 C/HDL 2.1 Ratio 03/17/2017 Comp Metabolic Yae271 NA 140 mEq/L 03/17/2017 Comp Metabolic Wpi626 K 4.4 mEq/L 03/17/2017 Comp Metabolic Vhs753 CL 104 mEq/L 03/17/2017 Comp Metabolic Ghv883 CO2 30.0 mEq/L 03/17/2017 Comp Metabolic Yvg673 ANION GAP 10 03/17/2017 Comp Metabolic Kxc606 GLUCOSE 122 mg/dL 03/17/2017 Comp Metabolic Iks978 Creat 0.9 mg/dL 03/17/2017 Comp Metabolic Kzs906 eGFR 82 ml/min/1.73m2 03/17/2017 Comp Metabolic Ezy474 BUN 22 mg/dL 03/17/2017 Comp Metabolic Mzx818 B/C Ratio 23.7 Ratio 03/17/2017 Comp Metabolic Dym883 CALCIUM 10.3 mg/dL 03/17/2017 Comp Metabolic Bfd074 ALK PHOS 62 U/L 03/17/2017 Comp Metabolic Czo330 AST(SGOT) 19 U/L 03/17/2017 Comp Metabolic Fdb185 ALT(SGPT) 21 U/L 03/17/2017 Comp Metabolic Hlp931 BILI T 0.5 mg/dL 03/17/2017 Comp Metabolic Hye693 ALBUMIN 4.1 g/dL 03/17/2017 Comp Metabolic Jre436 TPRO 6.9 g/dL 03/17/2017 Comp Metabolic Trb050 GLOB 2.8 g/dL 03/17/2017 Comp Metabolic Fvz180 A/G Ratio 1.5 Ratio 03/17/2017 Comp Metabolic Tuf148 Osmo 284 mOsmo 03/17/2017 Comp Metabolic Dwy846 NA 140 mEq/L 03/17/2017 Comp Metabolic Rky109 K 4.4 mEq/L 03/17/2017 Comp Metabolic Qfk249 CL 104 mEq/L 03/17/2017 Comp Metabolic Hpw760 CO2 30.0 mEq/L 03/17/2017 Comp Metabolic Itm971 ANION GAP 10 03/17/2017 Comp Metabolic Zfg191 GLUCOSE 122 mg/dL 03/17/2017 Comp Metabolic Wpw355 Creat 0.9 mg/dL 03/17/2017 Comp Metabolic Xlw160 eGFR 82 ml/min/1.73m2 03/17/2017 Comp Metabolic Ncv714 BUN 22 mg/dL 03/17/2017 Comp Metabolic Hmo508 B/C Ratio 23.7 Ratio 03/17/2017 Comp Metabolic Gyb043 CALCIUM 10.3 mg/dL 03/17/2017 Comp Metabolic Upq779 ALK PHOS 62 U/L 03/17/2017 Comp Metabolic Qnj626 AST(SGOT) 19 U/L 03/17/2017 Comp Metabolic Wxw677 ALT(SGPT) 21 U/L 03/17/2017 Comp Metabolic Vwz121 BILI T 0.5 mg/dL 03/17/2017 Comp Metabolic Drw346 ALBUMIN 4.1 g/dL 03/17/2017 Comp Metabolic Zbb376 TPRO 6.9 g/dL 03/17/2017 Comp Metabolic Wdq709 GLOB 2.8 g/dL 03/17/2017 Comp Metabolic Eff309 A/G Ratio 1.5 Ratio 03/17/2017 Comp Metabolic Bdj206 Osmo 284 mOsmo 03/17/2017 Lipid Ord30 CHOL 115 mg/dL 03/17/2017 Lipid Ord30 HDL 54.0 mg/dl 03/17/2017 Lipid Ord30 TRIG 94 mg/dL 03/17/2017 Lipid Ord30 LDL 42 mg/dL 03/17/2017 Lipid Ord30 C/HDL 2.1 Ratio 03/17/2017 Pt Hct0416 PT 23.7 seconds 03/12/2017 Pt Jos1749 INR 2.1 03/12/2017 Pt Hqx8902 Low Intensity - 1.5-2.0 03/12/2017 Pt Mtj0900 Mod intensity - 2.0-3.0 03/12/2017 Pt Qjr0040 Hi intensity - 3.0-4.0 03/12/2017 Pt Hud0212 PT 21.3 seconds 02/10/2017 Pt Gvs4076 INR 1.9 02/10/2017 Pt Mnz7849 Low Intensity - 1.5-2.0 02/10/2017 Pt Gur5939 Mod intensity - 2.0-3.0 02/10/2017 Pt Xov8462 Hi intensity - 3.0-4.0 02/10/2017 Pt Wnr2553 PT 21.4 seconds 01/27/2017 Pt Htf7131 INR 1.9 01/27/2017 Pt Fcu9818 Low Intensity - 1.5-2.0 01/27/2017 Pt Jfq1086 Mod intensity - 2.0-3.0 01/27/2017 Pt Zrg6159 Hi intensity - 3.0-4.0 01/27/2017 Pt Ncz7030 PT 22.0 seconds 01/19/2017 Pt Ghs6726 INR 1.9 01/19/2017 Pt Brk0730 Low Intensity - 1.5-2.0 01/19/2017 Pt Nwh0346 Mod intensity - 2.0-3.0 01/19/2017 Pt Tsw4249 Hi intensity - 3.0-4.0 01/19/2017 Pt Fxk0489 PT 28.3 seconds 01/05/2017 Pt Vjs6561 INR 2.6 01/05/2017 Pt Njs2167 Low Intensity - 1.5-2.0 01/05/2017 Pt Obj0736 Mod intensity - 2.0-3.0 01/05/2017 Pt Puc2432 Hi intensity - 3.0-4.0 01/05/2017 Pt Itj1803 PT 29.1 seconds 12/15/2016 Pt Gir3301 INR 2.7 12/15/2016 Pt Dip6436 Low Intensity - 1.5-2.0 12/15/2016 Pt Qqq7039 Mod intensity - 2.0-3.0 12/15/2016 Pt Qom3109 Hi intensity - 3.0-4.0 12/15/2016 Urine Culture Ucult Preliminary NO Growth Day 1 11/10/2016 Urine Culture Ucult Complete NO Growth Day 2 11/10/2016 Pt Zhe5792 PT 23.7 seconds 11/07/2016 Pt Ldb0251 INR 2.1 11/07/2016 Pt Niv1146 Low Intensity - 1.5-2.0 11/07/2016 Pt Azo8694 Mod intensity - 2.0-3.0 11/07/2016 Pt Iuw0339 Hi intensity - 3.0-4.0 11/07/2016 Pt Mgt0077 PT 27.1 seconds 10/13/2016 Pt Swp7825 INR 2.7 10/13/2016 Pt Bkj6070 Low Intensity - 1.5-2.0 10/13/2016 Pt Hdb6383 Mod intensity - 2.0-3.0 10/13/2016 Pt Hgp9257 Hi intensity - 3.0-4.0 10/13/2016 Pt Ymr1834 PT 26.3 seconds 09/23/2016 Pt Zsu9596 INR 2.6 09/23/2016 Pt Bgj3699 Low Intensity - 1.5-2.0 09/23/2016 Pt Rqb9484 Mod intensity - 2.0-3.0 09/23/2016 Pt Pdj2006 Hi intensity - 3.0-4.0 09/23/2016 Pt Nbw0138 PT 20.4 seconds 09/09/2016 Pt Nnz2496 INR 1.8 09/09/2016 Pt Igl1571 Low Intensity - 1.5-2.0 09/09/2016 Pt Wbz5520 Mod intensity - 2.0-3.0 09/09/2016 Pt Lmg1196 Hi intensity - 3.0-4.0 09/09/2016 Pt Cuy3458 PT 24.1 seconds 08/26/2016 Pt Yqn4564 INR 2.3 08/26/2016 Pt Sxe1797 Low Intensity - 1.5-2.0 08/26/2016 Pt Ppn0049 Mod intensity - 2.0-3.0 08/26/2016 Pt Rjr6038 Hi intensity - 3.0-4.0 08/26/2016 Pt Bsa1965 PT 26.1 seconds 08/12/2016 Pt Vco1947 INR 2.6 08/12/2016 Pt Erq5675 Low Intensity - 1.5-2.0 08/12/2016 Pt Ryz6481 Mod intensity - 2.0-3.0 08/12/2016 Pt Lpv5851 Hi intensity - 3.0-4.0 08/12/2016 Pt Tut0696 PT 23.5 seconds 07/15/2016 Pt Xjp5338 INR 2.2 07/15/2016 Pt Wiy5592 Low Intensity - 1.5-2.0 07/15/2016 Pt Wsm2773 Mod intensity - 2.0-3.0 07/15/2016 Pt Azp2738 Hi intensity - 3.0-4.0 07/15/2016 Urine Culture Ucult Preliminary NO Growth Day 1 07/10/2016 Urine Culture Ucult Complete NO Growth Day 2 07/10/2016 Pt Ivl4320 PT 27.9 seconds 06/30/2016 Pt Hgj1708 INR 2.8 06/30/2016 Pt Tlo3670 Low Intensity - 1.5-2.0 06/30/2016 Pt Whq2848 Mod intensity - 2.0-3.0 06/30/2016 Pt Oxc9769 Hi intensity - 3.0-4.0 06/30/2016 Pt Oar1198 PT 23.7 seconds 06/12/2016 Pt Hxk0981 INR 2.3 06/12/2016 Pt Ivc7160 Low Intensity - 1.5-2.0 06/12/2016 Pt Yjn3358 Mod intensity - 2.0-3.0 06/12/2016 Pt Kju0944 Hi intensity - 3.0-4.0 06/12/2016 Pt Gvc7068 PT 36.5 seconds 06/06/2016 Pt Ejm2475 INR 4.0 06/06/2016 Pt Zyb6495 Low Intensity - 1.5-2.0 06/06/2016 Pt Rat7915 Mod intensity - 2.0-3.0 06/06/2016 Pt Yrg6359 Hi intensity - 3.0-4.0 06/06/2016 Tibc Ord40 Iron 76 ug/dl 05/05/2016 Tibc Ord40 UIBC 210 ug/dL 05/05/2016 Tibc Ord40 TIBC 286 ug/dL 05/05/2016 Tibc Ord40 Fe-%Sat 26.6 % 05/05/2016 Pt Qdc9312 PT 29.0 seconds 05/05/2016 Pt Cwh2066 INR 2.9 05/05/2016 Pt Vkm6865 Low Intensity - 1.5-2.0 05/05/2016 Pt Uks5036 Mod intensity - 2.0-3.0 05/05/2016 Pt Lbb1639 Hi intensity - 3.0-4.0 05/05/2016 Ferritin Ord22 FERRITIN 32.7 ng/mL 05/05/2016 Pt Tes0738 PT 31.1 seconds 04/08/2016 Pt Ibf0450 INR 3.2 04/08/2016 Pt Ggp9041 Low Intensity - 1.5-2.0 04/08/2016 Pt Hjn4613 Mod intensity - 2.0-3.0 04/08/2016 Pt Yss9178 Hi intensity - 3.0-4.0 04/08/2016 Cbc With [...] 95.7 fl 03/24/2016 Cbc With Differential Ord2 Posey% 11.3 % 03/24/2016 Cbc With Differential Ord2 [...] 2.29 K/ul 03/24/2016 Cbc With Differential Ord2 Posey ABS# 0.8 K/ul 03/24/2016 Cbc With Differential Ord2 Eos ABS# 0.5 K/ul 03/24/2016 Cbc With Differential Ord2 Baso ABS# 0.0 K/ul 03/24/2016 Pt Rwt6633 PT 17.3 seconds 03/24/2016 Pt Kgp3031 INR 1.5 03/24/2016 Pt Lus6252 Low Intensity - 1.5-2.0 03/24/2016 Pt Hon6349 Mod intensity - 2.0-3.0 03/24/2016 Pt Tcm3954 Hi intensity - 3.0-4.0 03/24/2016 Pt Mpj0617 PT 17.8 seconds 03/12/2016 Pt Wef7367 INR 1.5 03/12/2016 Pt Aqn3509 Low Intensity - 1.5-2.0 03/12/2016 Pt Xrj6532 Mod intensity - 2.0-3.0 03/12/2016 Pt Zeg8908 Hi intensity - 3.0-4.0 03/12/2016 Urine Culture Ucult Preliminary NO Growth Day 1 02/29/2016 Urine Culture Ucult Complete NO Growth Day 2 02/29/2016 Lipid Ord30 CHOL 129 mg/dL 02/21/2016 Lipid Ord30 HDL 59.0 mg/dl 02/21/2016 Lipid Ord30 TRIG 90 mg/dL 02/21/2016 Lipid Ord30 LDL 52 mg/dL 02/21/2016 Lipid Ord30 C/HDL 2.2 Ratio 02/21/2016 Comp Metabolic Fzu213 NA 136 mEq/L 02/21/2016 Comp Metabolic Rat419 K 4.4 mEq/L 02/21/2016 Comp Metabolic Uda755 CL 102 mEq/L 02/21/2016 Comp Metabolic Ccz387 CO2 29.0 mEq/L 02/21/2016 Comp Metabolic Bfd553 ANION GAP 9 02/21/2016 Comp Metabolic Dle466 GLUCOSE 118 mg/dL 02/21/2016 Comp Metabolic Vah888 Creat 1.0 mg/dL 02/21/2016 Comp Metabolic Uct931 eGFR 72 ml/min/1.73m2 02/21/2016 Comp Metabolic Xua716 BUN 23 mg/dL 02/21/2016 Comp Metabolic Qai410 B/C Ratio 22.1 Ratio 02/21/2016 Comp Metabolic Ued369 CALCIUM 9.9 mg/dL 02/21/2016 Comp Metabolic Jzi665 ALK PHOS 57 U/L 02/21/2016 Comp Metabolic Biz827 AST(SGOT) 17 U/L 02/21/2016 Comp Metabolic Fvq546 ALT(SGPT) 19 U/L 02/21/2016 Comp Metabolic Sck507 BILI T 0.6 mg/dL 02/21/2016 Comp Metabolic Tre646 ALBUMIN 3.9 g/dL 02/21/2016 Comp Metabolic Cxh057 TPRO 6.9 g/dL 02/21/2016 Comp Metabolic Uhv426 GLOB 3.0 g/dL 02/21/2016 Comp Metabolic Yfm027 A/G Ratio 1.3 Ratio 02/21/2016 Comp Metabolic Oej764 Osmo 277 mOsmo 02/21/2016 Pt Gse7831 PT 19.8 seconds 02/21/2016 Pt Iej5463 INR 1.8 02/21/2016 Pt Hmz2927 Low Intensity - 1.5-2.0 02/21/2016 Pt She5407 Mod intensity - 2.0-3.0 02/21/2016 Pt Rcu4895 Hi intensity - 3.0-4.0 02/21/2016 Pt Qxa9892 PT 24.1 seconds 01/15/2016 Pt Blf6712 INR 2.3 01/15/2016 Pt Caq7521 Low Intensity - 1.5-2.0 01/15/2016 Pt Eep2903 Mod intensity - 2.0-3.0 01/15/2016 Pt Ixf3847 Hi intensity - 3.0-4.0 01/15/2016 Pt Zvg7024 PT 26.5 seconds 01/03/2016 Pt Wqg8114 INR 2.6 01/03/2016 Pt Tmc5418 Low Intensity - 1.5-2.0 01/03/2016 Pt Sqj3541 Mod intensity - 2.0-3.0 01/03/2016 Pt Ceh3146 Hi intensity - 3.0-4.0 01/03/2016 Pt Hlj8396 PT 15.3 seconds 11/30/2015 Pt Ity0703 INR 1.3 11/30/2015 Pt Kns6656 Low Intensity - 1.5-2.0 11/30/2015 Pt Ltg5584 Mod intensity - 2.0-3.0 11/30/2015 Pt Jtb7641 Hi intensity - 3.0-4.0 11/30/2015 Review of [...] impaction 09/10/2016 None Full Exam - General 1995 Ears/Nose/Throat lips/teeth/gingiva Overall: benign lips 09/10/2016 None Full Exam - General 1995 Ears/Nose/Throat lips/teeth/gingiva Overall: normal dentition 09/10/2016 None Full Exam - General 1994 Ears/Nose/Throat oral cavity/pharynx/larynx Overall: oral mucosa clear 09/10/2016 None Full Exam - General 1994 Ears/Nose/Throat oral cavity/pharynx/larynx Overall: oropharyngeal mucosa clear 09/10/2016 None Full Exam - General 1995 Ears/Nose/Throat oral cavity/pharynx/larynx Overall: hypopharynx benign 09/10/2016 [...] Formatting Model/CDA Sections, Assigned to/Arabella Carballo CPT-4: [id number] 01/04/2018 URINALYSIS NONAUTO W/O SCOPE CPT-4: 77192 11/07/2016 URINALYSIS NONAUTO W/O SCOPE CPT-4: 24079 02/26/2016 ADMIN INFLUENZA VIRUS VAC CPT-4: G0008 01/03/2016 FLU VACC 4 ARIANNA 3 YRS PLUS IM SNOMED CT: [id number] CPT-4: 84733 01/03/2016 Vital Signs Date Vital 01/28/2018 Blood Pressure 1: 150/60 Code : 8480-6 Heart Rate 1: 91 bpm SpO2: 92% 12/29/2017 Blood Pressure 1: 144/62 Code : 8480-6 BMI: 34.7 Code : 45827-6 Heart Rate 1 : 73 bpm Height: 5'4" SpO2: 97% Weight: 202 lbs 09/29/2017 Blood Pressure 1: 132/80 Code : 8480-6 Heart Rate 1: 76 bpm SpO2: 97% Weight: 204 lbs 08/11/2017 Blood Pressure 1: 132/66 Code : 8480-6 BMI: 35.0 Code : 99992-3 Heart Rate 1 : 81 bpm Height: 5'4" SpO2: 96% Weight: 204 lbs 03/16/2017 Blood Pressure 1: 132/70 Code : 8480-6 BMI: 34.5 Code : 27654-5 Heart Rate 1 : 78 bpm Height: 5'4" SpO2: 98% Weight: 201 lbs 12/15/2016 Blood Pressure 1: 140/80 Code : 8480-6 BMI: 34.2 Code : 67231-4 Heart Rate 1 : 69 bpm Height: 5'4" SpO2: 98% Weight: 199 lbs 11/07/2016 Blood Pressure 1: 158/82 Code : 8480-6 BMI: 34.7 Code : 66546-0 Heart Rate 1 : 76 bpm Height: 5'4" SpO2: 98% Weight: 202 lbs 10/14/2016 Blood Pressure 1: 140/80 Code : 8480-6 BMI: 34.0 Code : 63053-9 Heart Rate 1 : 79 bpm Height: 5'4" SpO2: 96% Weight: 198 lbs 09/10/2016 Blood Pressure 1: 158/80 Code : 8480-6 BMI: 34.3 Code : 71906-7 Heart Rate 1 : 75 bpm Height: 5'4" SpO2: 98% Weight: 200 lbs 07/08/2016 Blood Pressure 1: 160/74 Code : 8480-6 BMI: 35.2 Code : 03722-1 Heart Rate 1 : 94 bpm Height: 5'4" SpO2: 97% Weight: 205 lbs 06/16/2016 Blood Pressure 1: 138/76 Code : 8480-6 BMI: 35.0 Code : 55266-6 Heart Rate 1 : 68 bpm Height: 5'4" SpO2: 98% Weight: 204 lbs 01/31/2016 Blood Pressure 1: 136/64 Code : 8480-6 BMI: 33.6 Code : 08516-7 Heart Rate 1 : 92 bpm Height: 5'4" SpO2: 98% Weight: 196 lbs 01/03/2016 Blood Pressure 1: 142/68 Code : 8480-6 BMI: 33.8 Code : 86044-0 Heart Rate 1 : 80 bpm Height: 5'4" SpO2: 97% Weight: 197 lbs 11/30/2015 Blood Pressure 1: 158/80 Code : 8480-6 Heart Rate 1: 83 bpm SpO2: 98% 11/21/2015 Blood Pressure 1: 172/80 Code : 8480-6 BMI: 32.8 Code : 97552-0 Heart Rate 1 : 87 bpm Height: [...] Hospital Follow Up _ pain 09/29/2017 left [facility] Hospital Follow Up Quality acute 09/29/2017 None [...] data Encounters Encounter Performer Location Codes Date [id number] EST. PATIENT, LEVEL III Diagnosis: Cellulitis of left lower limb[ICD10: L03.116] [facility] CPT-4: 03582 01/28/2018 ([id number]) [id number] EST. 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 PATIENT, LEVEL IV Diagnosis: Essential (primary) hypertension[ICD10: I10] Diagnosis: Urge incontinence[ICD10: N39.41] Pamela Gallardo MD [facility] CPT-4: 51461 09/29/2017 ([id number]) 21144 EST. 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 PATIENT, LEVEL IV Diagnosis: Essential (primary) hypertension[ICD10: I10] Diagnosis: Mixed hyperlipidemia[ICD10: E78.2] Diagnosis: Gross hematuria[ICD10: R31.0] Pamela Gallardo MD, [facility] CPT- 4: 59418 10/14/2016 ([id number]) 16464 EST. 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 PATIENT, LEVEL III Diagnosis: Gross hematuria[ICD10: R31.0] Octavia Gallardo MD, [facility] CPT-4 : 53306 07/08/2016 ([id number]) 73670 EST. 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 PATIENT, LEVEL IV Diagnosis: Essential (primary) hypertension[ICD10: I10] Diagnosis: Mixed hyperlipidemia[ICD10: E78.2] Pamela Gallardo MD, [facility] CPT-4: 14166 01/31/2016 ([id number]) 54103 EST. PATIENT, LEVEL IV Diagnosis: Essential (primary) hypertension[ICD10: I10] Diagnosis: Mixed hyperlipidemia[ICD10: E78.2] Diagnosis: Encounter for immunization[ICD10: Z23] [facility] CPT-4: 19921 01/03/2016 ([id number]) Miscellaneous no charge Diagnosis: Essential (primary) hypertension[ICD10: I10] [facility] CPT-4: 92482 11/30/2015 ([id number]) OFFICE VISIT, NEW - LEVEL 4 Diagnosis: Essential (primary) hypertension[ICD10: I10] Diagnosis: Mixed hyperlipidemia[ICD10: E78.2] Diagnosis: Impacted cerumen, bilateral[ICD10: H61.23] [facility] CPT-4: 70571 11/21/2015 Plan of Care Planned Activity Notes Codes Status Date Visit Plan: Cellulitis - pt is to follow up with his surgeon - continue with oral antibiotics as previously directed, return to clinic as previously directed, call for acute change in symptoms, worsening redness, warmth, discharge. 01/28/2018 Appointment: Octavia Zarate WPtel: [phone] [facility] (15 min) Moderate 01/28/2018 Patient Education: Patient [...] supportive care. 12/29/2017 Appointment: Pamela Gallardo WPtel: [facility] [place] (15 min) Moderate 12/29/2017 Patient Education: Patient Medication Summary Completed 12/29/2017 Appointment: Pamela Gallardo WPtel: [facility] Same Day appointments 12/16/2017 Visit Plan: Hypertension [...] pharmacy 09/29/2017 Appointment: Pamela Gallardo WPtel: [phone] [facility] [place] (15 min) Moderate 09/29/2017 Patient Education: Patient [...] good 08/11/2017 Appointment: Pamela Gallardo WPtel: [phone] [facility] (15 min) Moderate 08/11/2017 Patient Education: Patient Medication Summary Completed 08/11/2017 Appointment: Pam[facility]el[facility] ([facility]) Moderate 08/06/2017 Appointment: Pamela Gallardo WPtel: [facility] (15 min) Moderate 08/04/2017 Visit Plan: Hypertension [...] monitor symptoms. 03/16/2017 [facility]: [phone] [place] (15 min) Moderate 03/16/2017 Patient Education: Patient Medication Summary Completed 03/16/2017 Patient Education: Obesity Completed 03/16/2017 [facility]: [phone] [place] (15 min) Moderate 12/30/2016 Visit Plan: [...] labs today. 12/15/2016 [phone] [place] (15 min) Moderate 12/15/2016 Patient Education: Patient Medication Summary Completed 12/15/2016 Visit Plan: Iron deficiency nogyar-zlzj-bewmnc bleeding- INR has been stable-continue multivitamin with iron daily Hematuria-3+ blood in urine-check PT/INR today-culture urine 11/07/2016 Appointment: Kelli Mccullough WPtel: [phone] [phone] [place] (15 min) Moderate 11/07/2016 Patient Education: [...] to medications. 10/14/2016 Appointment: Pamela Gallardo WPtel: [facility] (15 min) Moderate 10/14/2016 Patient Education: Patient Medication Summary Completed 10/14/2016 Patient Education: Obesity Completed 10/14/2016 Appointment: Pamela Gallardo WPtel[facility] (15 min) Moderate 10/09/2016 Visit Plan: Hypertension [...] or concerns. 07/08/2016 Appointment: Octavia Zarate WPtel[facility] [place] (15 min) Moderate 07/08/2016 Patient [...] with coumadin. 06/16/2016 Appointment: Pamela Gallardo WPtel[facility] [place] (15 min) Moderate 06/16/2016 Patient Education: Patient Medication Summary Completed 06/16/2016 Patient Education: Obesity Completed 06/16/2016 [facility]ment: [phone] (15 min) Moderate 05/22/2016 Patient Education: Patient [...] to medications. 01/31/2016 App[facility]ment: [phone] (15 min) Moderate 01/31/2016 Patient Education: Patient [...] to medications. 01/03/2016 Appointment: [phone] [place] (15 min) Moderate 01/03/2016 Patient Education: Patient [...] to medications. 11/21/2015 Appointment: Pamela Gallardo WPtel[facility] [facility] 11/21/2015 Patient Education: Patient Medication [...] with current management - check labs today. . Hypertension - well controlled - continue [...] check labs serially - last INR good increase the coumadin to 5mg on tuesdays, [...] - repeat INR in two weeks. . Cellulitis - pt is to follow [...] good Nocturia - continue with supportive care. . Hypertension - well controlled - continue [...] close to 2.1-2.3 Decrease coumadin 5mg on Jennie and 7.5 mg on all other days. [...] close to 2.1-2.3 Decrease coumadin 5mg on Jennie and 7.5 mg on all other days. Repeat INR next Thursday morning. . Hematuria - normal cystoscopy on 03/26/16 - Pt states that Dr. Lincoln used to keep his INR between 2.1 and 2.3. Will have pt take coumadin 5mg on Jennie and 7.5mg all other days - repeat [...] it to the pharmacy . Iron deficiency emjxtv-fein-btultx bleeding-INR has been stable-continue multivitamin with iron [...]
--- OUTSIDE RECORDS SUMMARY | 2018-02-20 09:18 | XMS REPORT | CCD ---
Author Author [facility] Organization [facility] Address [address] [place] [address] Phone Care Team Providers Care Admitting Interviewer Name Role Phone PP Unavailable CCM Unavailable Summary Purpose Interface Exchange Insurance Providers Payer name Policy type / Coverage type Covered republican ID Effective Begin Date Effective End Date WPS Medicare Part B Medicare Part B [id number] Unknown [facility] Medicare Part B [id number] Unknown Family history Father Diagnosis Age At [...] Unknown Retired 11/21/[address]: 6641642 Former smoker Quit September 2014 11/21/[address]: 649376 Currently drinks alcohol 11/21/2015 Has the patient ever used illegal drugs? 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: [...] Problems Condition Codes Effective Dates Condition Status Encounter for immunization ICD-9: V04.81 ICD-10: Z23 01/02/2016 Active Essential (primary) hypertension ICD-9: 401.1 ICD-10: I10 01/30/2016 Active [facility] (current) use of anticoagulants ICD-9: V58.61 ICD-10: [...] Fill Instructions warfarin 5 mg tablet RxNorm: 254815 1 Tablet(s) PO UD on Thursday - goal for INR is 2.3 12/25/2017 08/21/2018 Active warfarin 7.5 mg tablet RxNorm: 560608 1 Tablet(s) PO daily except Sat take 5mg 12/25/2017 12/19/2018 Active Lovenox 40 mg/0.4 mL subcutaneous syringe RxNorm: 176576 1 Milliliter(s) SQ BID 10/14/2017 No Stop Date Active Holding coumadin x 5 days. Start the day after stopping coumadin for procedure. Hold the day of surgery. The day after surgery resume BID x 4 days. Vesicare 10 mg tablet RxNorm: 463193 1 Tablet(s) PO QPM 2017 No Stop Date Active lisinopril 20 mg tablet RxNorm: 151736 TAKE ONE TABLET BY MOUTH ONCE DAILY 06/23/2017 No Stop Date Active warfarin 5 mg tablet RxNorm: 150844 1 Tablet(s) PO UD on Thursday and - goal for INR is 2.3 02/11/2017 10/08/2017 Inactive lisinopril 20 mg tablet RxNorm: 408412 1 Tablet(s) PO daily 06/22/2017 Inactive warfarin 7.5 mg tablet RxNorm: 288772 1 Tablet(s) PO daily except 10/14/2016 10/08/2017 Inactive warfarin 5 mg tablet RxNorm: 018045 1 Tablet(s) PO UD on Thursday and - goal for INR is 2.3 10/14/2016 02/10/2017 Inactive warfarin 5 mg tablet RxNorm: 194321 1 Tablet(s) PO UD on Thursday10/14/2016 10/13/2016 Inactive warfarin 7.5 mg tablet RxNorm: 244892 1 Tablet(s) PO daily 10/13/2016 Inactive warfarin 7.5 mg tablet RxNorm: 253803 1 Tablet(s) PO daily 03/201708/17/2016 Inactive Norvasc 5 mg tablet RxNorm: 752771 1 Tablet(s) PO QPM 201512/14/2016 Inactive aspirin 81 mg chewable tablet RxNorm: 155051 1 Tablet(s) PO daily No Start Date Active amlodipine 2.5 mg tablet RxNorm: 843726 1 Tablet(s) PO daily No Start Date Active PreserVision AREDS 2 oral RxNorm: 9432380 oral No Start Date Active Citracal + D3 (calcium phosphate) oral RxNorm: 7729177 oral No Start Date Active Centrum Silver tablet RxNorm: 1 Tablet(s) PO daily No Start Date Active Colace 100 mg capsule RxNorm: 3285151 1-2 Capsule(s) PO as needed constipation No Start Date Active Imodium A-D 2 mg tablet RxNorm: 073917 1 Tablet(s) PO as needed diarrhea No Start Date Active atorvastatin 20 mg tablet RxNorm: 330715 1 Tablet(s) PO daily No Start Date Active carvedilol 6.25 mg tablet RxNorm: 064702 1 Tablet(s) PO BID No Start Date Active Lupron Depot intramuscular RxNorm: 211762 intramuscular No Start Date Active Lovenox 40 mg/0.4 mL subcutaneous syringe RxNorm: 214725 1 Milliliter(s) SQ BID No Start Date 10/13/2017 Inactive Holding coumadin x 5 days. Start the day after stopping coumadin for procedure. Hold the day of surgery. The day after surgery resume BID x 4 days. warfarin 5 mg tablet RxNorm: 509126 1 Tablet(s) PO every other day No Start Date 10/13/2016 Inactive warfarin 7.5 mg tablet RxNorm: 878182 1 Tablet(s) PO every other day No Start Date 07/15/2016 Inactive lisinopril 20 mg tablet RxNorm: 496805 1 Tablet(s) PO daily No Start Date 12/28/2016 Inactive clopidogrel 75 mg tablet RxNorm: 500537 1 Tablet(s) PO daily No Start Date 03/10/2016 Inactive Medication Administered No Medication Administered data Immunizations Vaccine Codes Date Status Influenza CVX: 141 01/04/2018 completed Influenza CVX: 141 01/03/2016 completed Assessments Condition Codes Effective Dates Encounter for immunization ICD-10: Z23 ICD-9: V04.81 01/04/2018 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: [...] Visit Reason For Visit Effective Dates Notes vaccination against influenza 01/04/2018 nocturia 12/29/2017 Hospital Follow Up 09/29/2017 hypertension 08/11/2017 hypertension 03/16/2017 hypertension 12/15/2016 anemia 11/07/2016 hypertension 10/14/2016 hypertension 09/10/2016 hematuria 07/08/2016 hypertension 06/16/2016 hypertension 01/31/2016 hypertension 01/03/2016 hypertension 11/21/2015 Results Observation Observation Code Item Item Code Result Date Pt Dug7653 PT 18.2 seconds 01/28/2018 Pt Ckr7182 INR 1.6 01/28/2018 Pt Zkf2805 Low Intensity - 1.5-2.0 01/28/2018 Pt Bau2300 Mod intensity - 2.0-3.0 01/28/2018 Pt Pwr2624 Hi intensity - 3.0-4.0 01/28/2018 Pt Cyf9266 PT 19.8 seconds 01/22/2018 Pt Onu7298 INR 1.7 01/22/2018 Pt Tjy5210 Low Intensity - 1.5-2.0 01/22/2018 Pt Dkt5210 Mod intensity - 2.0-3.0 01/22/2018 Pt Qnv5663 Hi intensity - 3.0-4.0 01/22/2018 Pt Bwv1512 PT 38.3 seconds 01/15/2018 Pt Iam2285 INR 3.8 01/15/2018 Pt Grq9893 Low Intensity - 1.5-2.0 01/15/2018 Pt Uds0714 Mod intensity - 2.0-3.0 01/15/2018 Pt Btm1296 Hi intensity - 3.0-4.0 01/15/2018 Pt Nln8578 PT 27.1 seconds 01/05/2018 Pt Bwr1723 INR 2.5 01/05/2018 Pt Ole5985 Low Intensity - 1.5-2.0 01/05/2018 Pt Ulx3413 Mod intensity - 2.0-3.0 01/05/2018 Pt Vrw1006 Hi intensity - 3.0-4.0 01/05/2018 Pt Rjq5989 PT 27.2 seconds 12/25/2017 Pt Cti0112 INR 2.5 12/25/2017 Pt Oji7347 Low Intensity - 1.5-2.0 12/25/2017 Pt Hci8585 Mod intensity - 2.0-3.0 12/25/2017 Pt Ewt3357 Hi intensity - 3.0-4.0 12/25/2017 Pt Uks3928 PT 22.2 seconds 12/09/2017 Pt Rkb4029 INR 2.0 12/09/2017 Pt Nqm5098 Low Intensity - 1.5-2.0 12/09/2017 Pt Ljt1275 Mod intensity - 2.0-3.0 12/09/2017 Pt Hjx0122 Hi intensity - 3.0-4.0 12/09/2017 Pt Umq2592 PT 20.5 seconds 11/27/2017 Pt Lvx8671 INR 1.8 11/27/2017 Pt Ekv2586 Low Intensity - 1.5-2.0 11/27/2017 Pt Qev5998 Mod intensity - 2.0-3.0 11/27/2017 Pt Lwc4461 Hi intensity - 3.0-4.0 11/27/2017 Pt Mel0169 PT 16.8 seconds 11/23/2017 Pt Yxv0532 INR 1.4 11/23/2017 Pt Wvb8993 Low Intensity - 1.5-2.0 11/23/2017 Pt Fnr8089 Mod intensity - 2.0-3.0 11/23/2017 Pt Kyf4275 Hi intensity - 3.0-4.0 11/23/2017 Pt Svu6548 PT 13.4 seconds 11/20/2017 Pt Vlw8504 INR 1.1 11/20/2017 Pt Exv9929 Low Intensity - 1.5-2.0 11/20/2017 Pt Cna4633 Mod intensity - 2.0-3.0 11/20/2017 Pt Rqx9943 Hi intensity - 3.0-4.0 11/20/2017 Pt Liq8750 PT 29.3 seconds 09/22/2017 Pt Zoy6630 INR 2.7 09/22/2017 Pt Hpf8794 Low Intensity - 1.5-2.0 09/22/2017 Pt Lhm9222 Mod intensity - 2.0-3.0 09/22/2017 Pt Fyu4939 Hi intensity - 3.0-4.0 09/22/2017 Pt Cnk8641 PT 24.6 seconds 08/27/2017 Pt Pdz4982 INR 2.2 08/27/2017 Pt Lzm4223 Low Intensity - 1.5-2.0 08/27/2017 Pt Bcc7431 Mod intensity - 2.0-3.0 08/27/2017 Pt Ymu7763 Hi intensity - 3.0-4.0 08/27/2017 Pt Rql4068 PT 24.9 seconds 08/03/2017 Pt Wwq9527 INR 2.3 08/03/2017 Pt Fin6330 Low Intensity - 1.5-2.0 08/03/2017 Pt Qbj5342 Mod intensity - 2.0-3.0 08/03/2017 Pt Udc2769 Hi intensity - 3.0-4.0 08/03/2017 Pt Dox5333 PT 24.4 seconds 06/17/2017 Pt Xtc5026 INR 2.2 06/17/2017 Pt Emz8066 Low Intensity - 1.5-2.0 06/17/2017 Pt Muq6417 Mod intensity - 2.0-3.0 06/17/2017 Pt Kfk1659 Hi intensity - 3.0-4.0 06/17/2017 Pt Tty3332 PT 26.8 seconds 06/01/2017 Pt Bwm4132 INR 2.5 06/01/2017 Pt Fai6010 Low Intensity - 1.5-2.0 06/01/2017 Pt Wuk7058 Mod intensity - 2.0-3.0 06/01/2017 Pt Woc6542 Hi intensity - 3.0-4.0 06/01/2017 Pt Owl8089 PT 18.8 seconds 05/18/2017 Pt Ata6772 INR 1.6 05/18/2017 Pt Tsz6282 Low Intensity - 1.5-2.0 05/18/2017 Pt Uua9367 Mod intensity - 2.0-3.0 05/18/2017 Pt Dkc9622 Hi intensity - 3.0-4.0 05/18/2017 Pt Cub1315 PT 18.6 seconds 04/27/2017 Pt Tjw3879 INR 1.6 04/27/2017 Pt Vvb9765 Low Intensity - 1.5-2.0 04/27/2017 Pt Eod2950 Mod intensity - 2.0-3.0 04/27/2017 Pt Fqi1427 Hi intensity - 3.0-4.0 04/27/2017 Pt Wiv8938 PT 26.1 seconds 04/13/2017 Pt Jiw9309 INR 2.4 04/13/2017 Pt Qfw5725 Low Intensity - 1.5-2.0 04/13/2017 Pt Rbv5771 Mod intensity - 2.0-3.0 04/13/2017 Pt Zxs4412 Hi intensity - 3.0-4.0 04/13/2017 Lipid Ord30 CHOL 115 mg/dL 03/17/2017 Lipid Ord30 HDL 54.0 mg/dl 03/17/2017 Lipid Ord30 TRIG 94 mg/dL 03/17/2017 Lipid Ord30 LDL 42 mg/dL 03/17/2017 Lipid Ord30 C/HDL 2.1 Ratio 03/17/2017 Comp Metabolic Swb915 NA 140 mEq/L 03/17/2017 Comp Metabolic Yom205 K 4.4 mEq/L 03/17/2017 Comp Metabolic Nzi686 CL 104 mEq/L 03/17/2017 Comp Metabolic Amz753 CO2 30.0 mEq/L 03/17/2017 Comp Metabolic Rth048 ANION GAP 10 03/17/2017 Comp Metabolic Uan272 GLUCOSE 122 mg/dL 03/17/2017 Comp Metabolic Sfe226 Creat 0.9 mg/dL 03/17/2017 Comp Metabolic Daf261 eGFR 82 ml/min/1.73m2 03/17/2017 Comp Metabolic Lxr059 BUN 22 mg/dL 03/17/2017 Comp Metabolic Kkk462 B/C Ratio 23.7 Ratio 03/17/2017 Comp Metabolic Kqb729 CALCIUM 10.3 mg/dL 03/17/2017 Comp Metabolic Bbo958 ALK PHOS 62 U/L 03/17/2017 Comp Metabolic Lfw621 AST(SGOT) 19 U/L 03/17/2017 Comp Metabolic Kuu260 ALT(SGPT) 21 U/L 03/17/2017 Comp Metabolic Awr753 BILI T 0.5 mg/dL 03/17/2017 Comp Metabolic Grx045 ALBUMIN 4.1 g/dL 03/17/2017 Comp Metabolic Dhi124 TPRO 6.9 g/dL 03/17/2017 Comp Metabolic Epv430 GLOB 2.8 g/dL 03/17/2017 Comp Metabolic Kjs053 A/G Ratio 1.5 Ratio 03/17/2017 Comp Metabolic Vox071 Osmo 284 mOsmo 03/17/2017 Comp Metabolic Frq515 NA 140 mEq/L 03/17/2017 Comp Metabolic Yow017 K 4.4 mEq/L 03/17/2017 Comp Metabolic Pyg226 CL 104 mEq/L 03/17/2017 Comp Metabolic Yad539 CO2 30.0 mEq/L 03/17/2017 Comp Metabolic Yjz650 ANION GAP 10 03/17/2017 Comp Metabolic Zxm614 GLUCOSE 122 mg/dL 03/17/2017 Comp Metabolic Nsn131 Creat 0.9 mg/dL 03/17/2017 Comp Metabolic Sgs932 eGFR 82 ml/min/1.73m2 03/17/2017 Comp Metabolic Lwg416 BUN 22 mg/dL 03/17/2017 Comp Metabolic Gqp054 B/C Ratio 23.7 Ratio 03/17/2017 Comp Metabolic Uhh517 CALCIUM 10.3 mg/dL 03/17/2017 Comp Metabolic Jfn001 ALK PHOS 62 U/L 03/17/2017 Comp Metabolic Zsm712 AST(SGOT) 19 U/L 03/17/2017 Comp Metabolic Owo342 ALT(SGPT) 21 U/L 03/17/2017 Comp Metabolic Ebi084 BILI T 0.5 mg/dL 03/17/2017 Comp Metabolic Upu879 ALBUMIN 4.1 g/dL 03/17/2017 Comp Metabolic Yop382 TPRO 6.9 g/dL 03/17/2017 Comp Metabolic Suq973 GLOB 2.8 g/dL 03/17/2017 Comp Metabolic Xgw741 A/G Ratio 1.5 Ratio 03/17/2017 Comp Metabolic Ucb396 Osmo 284 mOsmo 03/17/2017 Lipid Ord30 CHOL 115 mg/dL 03/17/2017 Lipid Ord30 HDL 54.0 mg/dl 03/17/2017 Lipid Ord30 TRIG 94 mg/dL 03/17/2017 Lipid Ord30 LDL 42 mg/dL 03/17/2017 Lipid Ord30 C/HDL 2.1 Ratio 03/17/2017 Pt Ien9461 PT 23.7 seconds 03/12/2017 Pt Eak8338 INR 2.1 03/12/2017 Pt Ave2624 Low Intensity - 1.5-2.0 03/12/2017 Pt Ffv3562 Mod intensity - 2.0-3.0 03/12/2017 Pt Tho3288 Hi intensity - 3.0-4.0 03/12/2017 Pt Skb1493 PT 21.3 seconds 02/10/2017 Pt Uzz8524 INR 1.9 02/10/2017 Pt Svu8505 Low Intensity - 1.5-2.0 02/10/2017 Pt Eys7325 Mod intensity - 2.0-3.0 02/10/2017 Pt Dxt2111 Hi intensity - 3.0-4.0 02/10/2017 Pt Pqj0680 PT 21.4 seconds 01/27/2017 Pt Axn5037 INR 1.9 01/27/2017 Pt Enq3596 Low Intensity - 1.5-2.0 01/27/2017 Pt Tfu5406 Mod intensity - 2.0-3.0 01/27/2017 Pt Iou6157 Hi intensity - 3.0-4.0 01/27/2017 Pt Ocs4711 PT 22.0 seconds 01/19/2017 Pt Rbi7243 INR 1.9 01/19/2017 Pt Smp8530 Low Intensity - 1.5-2.0 01/19/2017 Pt Vju7545 Mod intensity - 2.0-3.0 01/19/2017 Pt Wqf8027 Hi intensity - 3.0-4.0 01/19/2017 Pt Spu5814 PT 28.3 seconds 01/05/2017 Pt Eeq2582 INR 2.6 01/05/2017 Pt Bqs7131 Low Intensity - 1.5-2.0 01/05/2017 Pt Rkb8044 Mod intensity - 2.0-3.0 01/05/2017 Pt Ldm4217 Hi intensity - 3.0-4.0 01/05/2017 Pt Qut7592 PT 29.1 seconds 12/15/2016 Pt Sws8026 INR 2.7 12/15/2016 Pt Pdx1346 Low Intensity - 1.5-2.0 12/15/2016 Pt Jxn4520 Mod intensity - 2.0-3.0 12/15/2016 Pt Qhv6797 Hi intensity - 3.0-4.0 12/15/2016 Urine Culture Ucult Preliminary NO Growth Day 1 11/10/2016 Urine Culture Ucult Complete NO Growth Day 2 11/10/2016 Pt Kjx0838 PT 23.7 seconds 11/07/2016 Pt Vam2240 INR 2.1 11/07/2016 Pt Ysf3669 Low Intensity - 1.5-2.0 11/07/2016 Pt Luq7893 Mod intensity - 2.0-3.0 11/07/2016 Pt Qsg8984 Hi intensity - 3.0-4.0 11/07/2016 Pt Yfk3851 PT 27.1 seconds 10/13/2016 Pt Kxq7820 INR 2.7 10/13/2016 Pt Pfk4825 Low Intensity - 1.5-2.0 10/13/2016 Pt Lrk8375 Mod intensity - 2.0-3.0 10/13/2016 Pt Qxl4478 Hi intensity - 3.0-4.0 10/13/2016 Pt Mmw6690 PT 26.3 seconds 09/23/2016 Pt Ygg5697 INR 2.6 09/23/2016 Pt Gsl8589 Low Intensity - 1.5-2.0 09/23/2016 Pt Dcs8966 Mod intensity - 2.0-3.0 09/23/2016 Pt Ugb2691 Hi intensity - 3.0-4.0 09/23/2016 Pt Vsx3075 PT 20.4 seconds 09/09/2016 Pt Ezj8503 INR 1.8 09/09/2016 Pt Ufj8024 Low Intensity - 1.5-2.0 09/09/2016 Pt Qwn8004 Mod intensity - 2.0-3.0 09/09/2016 Pt Kvc6815 Hi intensity - 3.0-4.0 09/09/2016 Pt Cxb2034 PT 24.1 seconds 08/26/2016 Pt Uho1210 INR 2.3 08/26/2016 Pt Ufq7957 Low Intensity - 1.5-2.0 08/26/2016 Pt Jjd0041 Mod intensity - 2.0-3.0 08/26/2016 Pt Lak2682 Hi intensity - 3.0-4.0 08/26/2016 Pt Fei0338 PT 26.1 seconds 08/12/2016 Pt Dqt0857 INR 2.6 08/12/2016 Pt Ywa7896 Low Intensity - 1.5-2.0 08/12/2016 Pt Djh7813 Mod intensity - 2.0-3.0 08/12/2016 Pt Qis7051 Hi intensity - 3.0-4.0 08/12/2016 Pt Hvc7552 PT 23.5 seconds 07/15/2016 Pt Nbz6749 INR 2.2 07/15/2016 Pt Qhw2701 Low Intensity - 1.5-2.0 07/15/2016 Pt Zhq5579 Mod intensity - 2.0-3.0 07/15/2016 Pt Qxl3462 Hi intensity - 3.0-4.0 07/15/2016 Urine Culture Ucult Preliminary NO Growth Day 1 07/10/2016 Urine Culture Ucult Complete NO Growth Day 2 07/10/2016 Pt Lpa1104 PT 27.9 seconds 06/30/2016 Pt Xtb1442 INR 2.8 06/30/2016 Pt Ela0191 Low Intensity - 1.5-2.0 06/30/2016 Pt Hzx3541 Mod intensity - 2.0-3.0 06/30/2016 Pt Isb0604 Hi intensity - 3.0-4.0 06/30/2016 Pt Njo5885 PT 23.7 seconds 06/12/2016 Pt Cke2264 INR 2.3 06/12/2016 Pt Coy8060 Low Intensity - 1.5-2.0 06/12/2016 Pt Ojp0594 Mod intensity - 2.0-3.0 06/12/2016 Pt Kwn8135 Hi intensity - 3.0-4.0 06/12/2016 Pt Fmv2851 PT 36.5 seconds 06/06/2016 Pt Noc1898 INR 4.0 06/06/2016 Pt Iry1230 Low Intensity - 1.5-2.0 06/06/2016 Pt Jkd8968 Mod intensity - 2.0-3.0 06/06/2016 Pt Xgi4874 Hi intensity - 3.0-4.0 06/06/2016 Tibc Ord40 Iron 76 ug/dl 05/05/2016 Tibc Ord40 UIBC 210 ug/dL 05/05/2016 Tibc Ord40 TIBC 286 ug/dL 05/05/2016 Tibc Ord40 Fe-%Sat 26.6 % 05/05/2016 Pt Jxk2556 PT 29.0 seconds 05/05/2016 Pt Aqn4747 INR 2.9 05/05/2016 Pt Evs7296 Low Intensity - 1.5-2.0 05/05/2016 Pt Tbf3919 Mod intensity - 2.0-3.0 05/05/2016 Pt Wry7622 Hi intensity - 3.0-4.0 05/05/2016 Ferritin Ord22 FERRITIN 32.7 ng/mL 05/05/2016 Pt Hmg8227 PT 31.1 seconds 04/08/2016 Pt Jrx5113 INR 3.2 04/08/2016 Pt Byp2201 Low Intensity - 1.5-2.0 04/08/2016 Pt Qxn0305 Mod intensity - 2.0-3.0 04/08/2016 Pt Stb8195 Hi intensity - 3.0-4.0 04/08/2016 Cbc With [...] 95.7 fl 03/24/2016 Cbc With Differential Ord2 [place]% 11.3 % 03/24/2016 Cbc With Differential Ord2 [...] 2.29 K/ul 03/24/2016 Cbc With Differential Ord2 [place] ABS# 0.8 K/ul 03/24/2016 Cbc With Differential Ord2 Eos ABS# 0.5 K/ul 03/24/2016 Cbc With Differential Ord2 Baso ABS# 0.0 K/ul 03/24/2016 Pt Dxy9264 PT 17.3 seconds 03/24/2016 Pt Hxr8617 INR 1.5 03/24/2016 Pt Ryt8595 Low Intensity - 1.5-2.0 03/24/2016 Pt Vbm8633 Mod intensity - 2.0-3.0 03/24/2016 Pt Get0408 Hi intensity - 3.0-4.0 03/24/2016 Pt Nwa2169 PT 17.8 seconds 03/12/2016 Pt Yez1914 INR 1.5 03/12/2016 Pt Oia6621 Low Intensity - 1.5-2.0 03/12/2016 Pt Ase9010 Mod intensity - 2.0-3.0 03/12/2016 Pt Ugg5491 Hi intensity - 3.0-4.0 03/12/2016 Urine Culture Ucult Complete NO Growth Day 2 02/29/2016 Urine Culture Ucult Preliminary NO Growth Day 1 02/29/2016 Lipid Ord30 CHOL 129 mg/dL 02/21/2016 Lipid Ord30 HDL 59.0 mg/dl 02/21/2016 Lipid Ord30 TRIG 90 mg/dL 02/21/2016 Lipid Ord30 LDL 52 mg/dL 02/21/2016 Lipid Ord30 C/HDL 2.2 Ratio 02/21/2016 Comp Metabolic Uln964 NA 136 mEq/L 02/21/2016 Comp Metabolic Qro417 K 4.4 mEq/L 02/21/2016 Comp Metabolic Clb090 CL 102 mEq/L 02/21/2016 Comp Metabolic Yeu367 CO2 29.0 mEq/L 02/21/2016 Comp Metabolic Ktp234 ANION GAP 9 02/21/2016 Comp Metabolic Iau257 GLUCOSE 118 mg/dL 02/21/2016 Comp Metabolic Dgg076 Creat 1.0 mg/dL 02/21/2016 Comp Metabolic Qfx975 eGFR 72 ml/min/1.73m2 02/21/2016 Comp Metabolic Zdu111 BUN 23 mg/dL 02/21/2016 Comp Metabolic Jca322 B/C Ratio 22.1 Ratio 02/21/2016 Comp Metabolic Oej459 CALCIUM 9.9 mg/dL 02/21/2016 Comp Metabolic Laz386 ALK PHOS 57 U/L 02/21/2016 Comp Metabolic Whv811 AST(SGOT) 17 U/L 02/21/2016 Comp Metabolic Afl566 ALT(SGPT) 19 U/L 02/21/2016 Comp Metabolic Hih344 BILI T 0.6 mg/dL 02/21/2016 Comp Metabolic Wxi945 ALBUMIN 3.9 g/dL 02/21/2016 Comp Metabolic Onz804 TPRO 6.9 g/dL 02/21/2016 Comp Metabolic Ixd773 GLOB 3.0 g/dL 02/21/2016 Comp Metabolic Xax816 A/G Ratio 1.3 Ratio 02/21/2016 Comp Metabolic Cxi636 Osmo 277 mOsmo 02/21/2016 Pt Jew2557 PT 19.8 seconds 02/21/2016 Pt Spw2577 INR 1.8 02/21/2016 Pt Isb3598 Low Intensity - 1.5-2.0 02/21/2016 Pt Lrh2917 Mod intensity - 2.0-3.0 02/21/2016 Pt Bwq4151 Hi intensity - 3.0-4.0 02/21/2016 Pt Cwe2427 PT 24.1 seconds 01/15/2016 Pt Cvz9561 INR 2.3 01/15/2016 Pt Ekk2325 Low Intensity - 1.5-2.0 01/15/2016 Pt Fnn2938 Mod intensity - 2.0-3.0 01/15/2016 Pt Snq5784 Hi intensity - 3.0-4.0 01/15/2016 Pt Lnq6409 PT 26.5 seconds 01/03/2016 Pt Vru1407 INR 2.6 01/03/2016 Pt Ebl3727 Low Intensity - 1.5-2.0 01/03/2016 Pt Hwd4017 Mod intensity - 2.0-3.0 01/03/2016 Pt Vwv3166 Hi intensity - 3.0-4.0 01/03/2016 Pt Qtu4745 PT 15.3 seconds 11/30/2015 Pt Jwg9639 INR 1.3 11/30/2015 Pt Ppu2846 Low Intensity - 1.5-2.0 11/30/2015 Pt Ytl5200 Mod intensity - 2.0-3.0 11/30/2015 Pt Pfl9421 Hi intensity - 3.0-4.0 11/30/2015 Review of [...] clear 12/15/2016 None Full Exam - General 1995 Ears/Nose/Throat oral cavity/pharynx/larynx Overall: oropharyngeal mucosa clear 12/15/2016 None Full Exam - General 1995 Ears/Nose/Throat oral cavity/pharynx/larynx Overall: hypopharynx benign 12/15/2016 [...] affect 11/21/2015 None Full Exam - General 1995 Ears/Nose/Throat otoscopic exam External auditory canal: complete cerumen impaction 11/21/2015 None Procedures Procedure Codes Date ADMIN INFLUENZA VIRUS VAC CPT-4: G0008 01/04/2018 FLU VACC PRSV FREE INC ANTIG Formatting Model/CDA Sections, Assigned to/Arabella Carballo CPT-4: 59361Gsihfrw 01/04/2018 URINALYSIS NONAUTO W/O SCOPE CPT-4: 54781 11/07/2016 URINALYSIS NONAUTO W/O SCOPE CPT-4: 63792 02/26/2016 ADMIN INFLUENZA VIRUS VAC CPT-4: G0008 01/03/2016 FLU VACC 4 ARIANNA 3 YRS PLUS IM SNOMED CT: [id number] CPT-4: 05828 01/03/2016 Vital Signs Date Vital 12/29/2017 Blood Pressure 1: 144/62 Code : 8480-6 BMI: 34.7 Code : 10377-6 Heart Rate 1 : 73 bpm Height: 5'4" SpO2: 97% Weight: 202 lbs 09/29/2017 Blood Pressure 1: 132/80 Code : 8480-6 Heart Rate 1: 76 bpm SpO2: 97% Weight: 204 lbs 08/11/2017 Blood Pressure 1: 132/66 Code : 8480-6 BMI: 35.0 Code : 98174-3 Heart Rate 1 : 81 bpm Height: 5'4" SpO2: 96% Weight: 204 lbs 03/16/2017 Blood Pressure 1: 132/70 Code : 8480-6 BMI: 34.5 Code : 17649-7 Heart Rate 1 : 78 bpm Height: 5'4" SpO2: 98% Weight: 201 lbs 12/15/2016 Blood Pressure 1: 140/80 Code : 8480-6 BMI: 34.2 Code : 59192-4 Heart Rate 1 : 69 bpm Height: 5'4" SpO2: 98% Weight: 199 lbs 11/07/2016 Blood Pressure 1: 158/82 Code : 8480-6 BMI: 34.7 Code : 72048-0 Heart Rate 1 : 76 bpm Height: 5'4" SpO2: 98% Weight: 202 lbs 10/14/2016 Blood Pressure 1: 140/80 Code : 8480-6 BMI: 34.0 Code : 47956-1 Heart Rate 1 : 79 bpm Height: 5'4" SpO2: 96% Weight: 198 lbs 09/10/2016 Blood Pressure 1: 158/80 Code : 8480-6 BMI: 34.3 Code : 69183-6 Heart Rate 1 : 75 bpm Height: 5'4" SpO2: 98% Weight: 200 lbs 07/08/2016 Blood Pressure 1: 160/74 Code : 8480-6 BMI: 35.2 Code : 76877-8 Heart Rate 1 : 94 bpm Height: 5'4" SpO2: 97% Weight: 205 lbs 06/16/2016 Blood Pressure 1: 138/76 Code : 8480-6 BMI: 35.0 Code : 49977-4 Heart Rate 1 : 68 bpm Height: 5'4" SpO2: 98% Weight: 204 lbs 01/31/2016 Blood Pressure 1: 136/64 Code : 8480-6 BMI: 33.6 Code : 38088-4 Heart Rate 1 : 92 bpm Height: 5'4" SpO2: 98% Weight: 196 lbs 01/03/2016 Blood Pressure 1: 142/68 Code : 8480-6 BMI: 33.8 Code : 12816-0 Heart Rate 1 : 80 bpm Height: 5'4" SpO2: 97% Weight: 197 lbs 11/30/2015 Blood Pressure 1: 158/80 Code : 8480-6 Heart Rate 1: 83 bpm SpO2: 98% 11/21/2015 Blood Pressure 1: 172/80 Code : 8480-6 BMI: 32.8 Code : 99273-1 Heart Rate 1 : 87 bpm Height: 5'4" SpO2: 98% Weight: 191 lbs Functional Status No Functional Status data History of Present Illness Symptom Name Status Result Effective Date Notes nocturia Quality intermittent 12/29/2017 None nocturia Onset [...] data Encounters Encounter Performer Location Codes Date ([id number]) [id number] EST. 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 PATIENT, LEVEL IV Diagnosis: Essential (primary) hypertension[ICD10: I10] Diagnosis: Urge incontinence[ICD10: N39.41] Pamela Gallardo MD, [facility] CPT-4: 06661 09/29/2017 ([id number]) 42199 EST. 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 PATIENT, LEVEL IV Diagnosis: Essential (primary) hypertension[ICD10: I10] Diagnosis: Mixed hyperlipidemia[ICD10: E78.2] Diagnosis: [facility] (current) use of anticoagulants[ICD10: Z79.01] Pamela Gallardo MD [facility] CPT-4: 24317 12/15/2016 ([id number]) 50020 EST. 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 PATIENT, LEVEL IV Diagnosis: Essential (primary) hypertension[ICD10: I10] Diagnosis: Mixed hyperlipidemia[ICD10: E78.2] Diagnosis: Gross hematuria[ICD10: R31.0] Pamela Gallardo MD [facility] CPT- 4: 99218 10/14/2016 ([id number]) 21561 EST. PATIENT, LEVEL IV Diagnosis: Essential (primary) hypertension[ICD10: I10] Diagnosis: [facility] (current) use of anticoagulants[ICD10: Z79.01] Diagnosis: Mixed hyperlipidemia[ICD10: E78.2] Pamela Gallardo MD [facility] CPT-4: 87916 09/10/2016 [id number] EST. PATIENT, LEVEL III Diagnosis: Gross hematuria[ICD10: R31.0] Octavia Gallardo MD [facility] CPT-4 : 24563 07/08/2016 ([id number]) 71687 EST. PATIENT, LEVEL IV Diagnosis: Essential (primary) hypertension[ICD10: I10] Diagnosis: Mixed hyperlipidemia[ICD10: E78.2] Diagnosis: [facility] (current) use of anticoagulants[ICD10: Z79.01] Pamela Gallardo MD [facility] CPT-4: 32297 06/16/2016 ([id number]) 06381 EST. PATIENT, LEVEL IV Diagnosis: Essential (primary) hypertension[ICD10: I10] Diagnosis: Mixed hyperlipidemia[ICD10: E78.2] Pamela Gallardo MD [facility] CPT-4: 59701 01/31/2016 ([id number]) 03883 EST. PATIENT, LEVEL IV Diagnosis: Essential (primary) hypertension[ICD10: I10] Diagnosis: Mixed hyperlipidemia[ICD10: E78.2] Diagnosis: Encounter for immunization[ICD10: Z23] [facility] CPT-4: 61411 01/03/2016 ([id number]) Miscellaneous no charge Diagnosis: Essential (primary) hypertension[ICD10: I10] Octavia [facility] CPT-4: 43614 11/30/2015 ([id number]) OFFICE VISIT, NEW - LEVEL 4 Diagnosis: Essential (primary) hypertension[ICD10: I10] Diagnosis: Mixed hyperlipidemia[ICD10: E78.2] Diagnosis: Impacted cerumen, bilateral[ICD10: H61.23] [facility] CPT-4: 45343 11/21/2015 Plan of Care Planned Activity Notes Codes Status Date Appointment: Nurse Visit 01/15/2018 Appointment: Injection 01/04/2018 [...] supportive care. 12/29/2017 Appointment: Pamela Gallardo WPtel: [facility] (15 min) Moderate 12/29/2017 Patient Education: Patient Medication Summary Completed 12/29/2017 Appointment: Pamela Gallardo WPtel: [facility] [facility] 12/16/2017 Visit Plan: Hypertension [...] pharmacy 09/29/2017 Appointment: Pamela Gallardo WPtel: [phone] [facility] (15 min) Moderate 09/29/2017 Patient Education: Patient [...] INR good 08/11/2017 Appointment: Pamela Gallardo WPtel: [facility] (15 min) Moderate 08/11/2017 Patient Education: Patient Medication Summary Completed 08/11/2017 Appointment: Pamela Gallardo WPtel: [phone] [facility] (15 min) Moderate 08/06/2017 Appointment: [phone] (15 min) Moderate 08/04/2017 Visit Plan: Hypertension [...] monitor symptoms. 03/16/2017 Appointment: Pamela Gallardo WPtel: [phone] [facility] (15 min) Moderate 03/16/2017 Patient Education: Patient Medication Summary Completed 03/16/2017 Patient Education: Obesity Completed 03/16/2017 Appointment: Pamela Gallardo WPtel: [phone] [facility] (15 min) Moderate 12/30/2016 Visit Plan: Hypertension [...] labs today. 12/15/2016 Appointment: Pamela Gallardo WPtel: [phone] [facility] [place] (15 min) Moderate 12/15/2016 Patient Education: Patient Medication Summary Completed 12/15/2016 Visit Plan: Iron deficiency chvtjq-ktmy-waigov bleeding- INR has been stable-continue multivitamin with iron daily Hematuria-3+ blood in urine-check PT/INR today-culture urine 11/07/2016 [facility]ment[id number] [place] (15 min) Moderate 11/07/2016 Patient Education: [...] to medications. 10/14/2016 Appointment: [phone] (15 min) Moderate 10/14/2016 Patient Education: Patient Medication Summary Completed 10/14/2016 Patient Education: Obesity Completed 10/14/2016 Appointment: [phone] (15 min) Moderate 10/09/2016 Visit Plan: [...] concerns. 07/08/2016 Appointment: Octavia Zarate WPtel: [phone] [facility] (15 min) Moderate 07/08/2016 Patient Education: Patient [...] coumadin. 06/16/2016 Appointment: Pamela Gallardo WPtel: [phone] [facility] (15 min) Moderate 06/16/2016 Patient Education: Patient Medication Summary Completed 06/16/2016 Patient Education: Obesity Completed 06/16/2016 Appointment: Pamela Gallardo WPtel: [phone] [facility] (15 min) Moderate 05/22/2016 Patient Education: Patient [...] medications. 01/31/2016 Appointment: Pamela Gallardo WPtel: [phone] [facility] (15 min) Moderate 01/31/2016 Patient Education: Patient [...] medications. 01/03/2016 Appointment: [phone] (15 min) Moderate 01/03/2016 Patient Education: Patient [...] to medications. 11/21/2015 Appointment: [facility]Ptel[phone] [facility] 11/21/2015 Patient Education: Patient [...] good Nocturia - continue with supportive care. Dr. Lincoln always kept INR close to [...] or with any questions or concerns. . Iron deficiency hrchdu-bbsw-wsbxor bleeding-INR has been stable-continue multivitamin with iron [...]
--- OUTSIDE RECORDS SUMMARY | 2018-02-20 09:20 | XMS REPORT | CCD ---
Author Author [facility] Organization [facility] Address [address] [place] [address] Phone Care Team Providers Care Manager Validation Name Role Phone PP Unavailable CCM Unavailable Summary Purpose Interface Exchange Insurance Providers Payer name Policy type / Coverage type Covered alliance party ID Effective Begin Date Effective End Date WPS Medicare Part B Medicare Part B [id number] Unknown [facility] Medicare Part B [id number] Unknown Family history Father Diagnosis Age At [...] Unknown Retired 11/21/[address]: 6818771 Former smoker Quit September 2014 11/21/[address]: 085079 Currently drinks alcohol 11/21/2015 Has the patient ever used illegal drugs? 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 Start the day after stopping coumadin for procedure. Hold the day of surgery. The day after surgery resume BID x 4 days. Vesicare 10 mg tablet RxNorm: 630613 1 Tablet(s) PO QPM 2017 No Stop Date Active lisinopril 20 mg tablet RxNorm: 520621 TAKE ONE TABLET BY MOUTH ONCE DAILY 06/23/2017 No Stop Date Active warfarin 5 mg tablet RxNorm: 423442 1 Tablet(s) PO UD on Thursday and - goal for INR is 2.3 02/11/2017 10/08/2017 Inactive lisinopril 20 mg tablet RxNorm: 097337 1 Tablet(s) PO daily 06/22/2017 Inactive warfarin 7.5 mg tablet RxNorm: 529502 1 Tablet(s) PO daily except Thu10/14/2016 10/08/2017 Inactive warfarin 5 mg tablet RxNorm: 816582 1 Tablet(s) PO UD on Thursday and - goal for INR is 2.3 10/14/2016 02/10/2017 Inactive warfarin 5 mg tablet RxNorm: 453766 1 Tablet(s) PO UD on Thursday10/14/2016 10/13/2016 Inactive warfarin 7.5 mg tablet RxNorm: 981714 1 Tablet(s) PO daily 10/13/2016 Inactive warfarin 7.5 mg tablet RxNorm: 815614 1 Tablet(s) PO daily 03/201708/17/2016 Inactive Norvasc 5 mg tablet RxNorm: 650364 1 Tablet(s) PO QPM 201512/14/2016 Inactive aspirin 81 mg chewable tablet RxNorm: 962969 1 Tablet(s) PO daily No Start Date Active amlodipine 2.5 mg tablet RxNorm: 961805 1 Tablet(s) PO daily No Start Date Active PreserVision AREDS 2 oral RxNorm: 8738895 oral No Start Date Active Citracal + D3 (calcium phosphate) oral RxNorm: 9034762 oral No Start Date Active Centrum Silver tablet RxNorm: 1 Tablet(s) PO daily No Start Date Active Colace 100 mg capsule RxNorm: 8120564 1-2 Capsule(s) PO as needed constipation No Start Date Active Imodium A-D 2 mg tablet RxNorm: 641010 1 Tablet(s) PO as needed diarrhea No Start Date Active atorvastatin 20 mg tablet RxNorm: 272411 1 Tablet(s) PO daily No Start Date Active carvedilol 6.25 mg tablet RxNorm: 658349 1 Tablet(s) PO BID No Start Date Active Lupron Depot intramuscular RxNorm: 772263 intramuscular No Start Date Active Lovenox 40 mg/0.4 mL subcutaneous syringe RxNorm: 719950 1 Milliliter(s) SQ BID No Start Date 10/13/2017 Inactive Holding coumadin x 5 days. Start the day after stopping coumadin for procedure. Hold the day of surgery. The day after surgery resume BID x 4 days. warfarin 5 mg tablet RxNorm: 985069 1 Tablet(s) PO every other day No Start Date 10/13/2016 Inactive warfarin 7.5 mg tablet RxNorm: 540048 1 Tablet(s) PO every other day No Start Date 07/15/2016 Inactive lisinopril 20 mg tablet RxNorm: 283968 1 Tablet(s) PO daily No Start Date 12/28/2016 Inactive clopidogrel 75 mg tablet RxNorm: 256761 1 Tablet(s) PO daily No Start Date 03/10/2016 Inactive Medication Administered No Medication Administered data Immunizations Vaccine Codes Date Status Influenza CVX: 141 01/03/2016 completed Assessments Condition Codes Effective Dates Essential (primary) hypertension ICD-10: I10 ICD-9: 401.1 09/29/2017 Urge incontinence ICD-10: N39.41 ICD-9: 788.31 09/29/2017 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 ICD-10: Z79.01 ICD-9: V58.61 08/11/2017 Mixed hyperlipidemia ICD-10: E78.2 ICD-9: 272.2 08/11/2017 [...] Visit Reason For Visit Effective Dates Notes Hospital Follow Up 09/29/2017 hypertension 08/11/2017 hypertension 03/16/2017 hypertension 12/15/2016 anemia 11/07/2016 hypertension 10/14/2016 hypertension 09/10/2016 hematuria 07/08/2016 hypertension 06/16/2016 hypertension 01/31/2016 hypertension 01/03/2016 hypertension 11/21/2015 Results Observation Observation Code Item Item Code Result Date Pt Clk1811 PT 13.4 seconds 11/20/2017 Pt Khq7214 INR 1.1 11/20/2017 Pt Fwk3861 Low Intensity - 1.5-2.0 11/20/2017 Pt Wyf8374 Mod intensity - 2.0-3.0 11/20/2017 Pt Jcx0015 Hi intensity - 3.0-4.0 11/20/2017 Pt Rum6774 PT 29.3 seconds 09/22/2017 Pt Fgf9724 INR 2.7 09/22/2017 Pt Zrk0035 Low Intensity - 1.5-2.0 09/22/2017 Pt Spv9059 Mod intensity - 2.0-3.0 09/22/2017 Pt Fpd8008 Hi intensity - 3.0-4.0 09/22/2017 Pt Zzw5349 PT 24.6 seconds 08/27/2017 Pt Xib3725 INR 2.2 08/27/2017 Pt Nic6982 Low Intensity - 1.5-2.0 08/27/2017 Pt Puf1287 Mod intensity - 2.0-3.0 08/27/2017 Pt Ipi1961 Hi intensity - 3.0-4.0 08/27/2017 Pt Clr3896 PT 24.9 seconds 08/03/2017 Pt Jtn6590 INR 2.3 08/03/2017 Pt Kjm3094 Low Intensity - 1.5-2.0 08/03/2017 Pt Ibk7794 Mod intensity - 2.0-3.0 08/03/2017 Pt Ggq4539 Hi intensity - 3.0-4.0 08/03/2017 Pt Aew6209 PT 24.4 seconds 06/17/2017 Pt Yyg1261 INR 2.2 06/17/2017 Pt Uzu4742 Low Intensity - 1.5-2.0 06/17/2017 Pt Zex8159 Mod intensity - 2.0-3.0 06/17/2017 Pt Uph0378 Hi intensity - 3.0-4.0 06/17/2017 Pt Gsz7132 PT 26.8 seconds 06/01/2017 Pt Obe3631 INR 2.5 06/01/2017 Pt Uux5512 Low Intensity - 1.5-2.0 06/01/2017 Pt Oye0559 Mod intensity - 2.0-3.0 06/01/2017 Pt Ghd8996 Hi intensity - 3.0-4.0 06/01/2017 Pt Ejn3886 PT 18.8 seconds 05/18/2017 Pt Nvj0724 INR 1.6 05/18/2017 Pt Ics7930 Low Intensity - 1.5-2.0 05/18/2017 Pt Rkx3416 Mod intensity - 2.0-3.0 05/18/2017 Pt Elz2403 Hi intensity - 3.0-4.0 05/18/2017 Pt Uac2077 PT 18.6 seconds 04/27/2017 Pt Plk4027 INR 1.6 04/27/2017 Pt Zlb9796 Low Intensity - 1.5-2.0 04/27/2017 Pt Iuw2812 Mod intensity - 2.0-3.0 04/27/2017 Pt Ska9740 Hi intensity - 3.0-4.0 04/27/2017 Pt Lgt9234 PT 26.1 seconds 04/13/2017 Pt Woh7677 INR 2.4 04/13/2017 Pt Oal5151 Low Intensity - 1.5-2.0 04/13/2017 Pt Quo7498 Mod intensity - 2.0-3.0 04/13/2017 Pt Hjt3394 Hi intensity - 3.0-4.0 04/13/2017 Comp Metabolic Ykl278 NA 140 mEq/L 03/17/2017 Comp Metabolic Xbi019 K 4.4 mEq/L 03/17/2017 Comp Metabolic Muj269 CL 104 mEq/L 03/17/2017 Comp Metabolic Doj398 CO2 30.0 mEq/L 03/17/2017 Comp Metabolic Fsb733 ANION GAP 10 03/17/2017 Comp Metabolic Faa695 GLUCOSE 122 mg/dL 03/17/2017 Comp Metabolic Ylu624 Creat 0.9 mg/dL 03/17/2017 Comp Metabolic Qon313 eGFR 82 ml/min/1.73m2 03/17/2017 Comp Metabolic Sfs488 BUN 22 mg/dL 03/17/2017 Comp Metabolic Lvv262 B/C Ratio 23.7 Ratio 03/17/2017 Comp Metabolic Xyp220 CALCIUM 10.3 mg/dL 03/17/2017 Comp Metabolic Pfc113 ALK PHOS 62 U/L 03/17/2017 Comp Metabolic Auj956 AST(SGOT) 19 U/L 03/17/2017 Comp Metabolic Guf710 ALT(SGPT) 21 U/L 03/17/2017 Comp Metabolic Bxk095 BILI T 0.5 mg/dL 03/17/2017 Comp Metabolic Orh990 ALBUMIN 4.1 g/dL 03/17/2017 Comp Metabolic Giu312 TPRO 6.9 g/dL 03/17/2017 Comp Metabolic Ybu309 GLOB 2.8 g/dL 03/17/2017 Comp Metabolic Hgs493 A/G Ratio 1.5 Ratio 03/17/2017 Comp Metabolic Koh232 Osmo 284 mOsmo 03/17/2017 Lipid Ord30 CHOL 115 mg/dL 03/17/2017 Lipid Ord30 HDL 54.0 mg/dl 03/17/2017 Lipid Ord30 TRIG 94 mg/dL 03/17/2017 Lipid Ord30 LDL 42 mg/dL 03/17/2017 Lipid Ord30 C/HDL 2.1 Ratio 03/17/2017 Lipid Ord30 CHOL 115 mg/dL 03/17/2017 Lipid Ord30 HDL 54.0 mg/dl 03/17/2017 Lipid Ord30 TRIG 94 mg/dL 03/17/2017 Lipid Ord30 LDL 42 mg/dL 03/17/2017 Lipid Ord30 C/HDL 2.1 Ratio 03/17/2017 Comp Metabolic Ebc073 NA 140 mEq/L 03/17/2017 Comp Metabolic Oov090 K 4.4 mEq/L 03/17/2017 Comp Metabolic Dzx829 CL 104 mEq/L 03/17/2017 Comp Metabolic Aap873 CO2 30.0 mEq/L 03/17/2017 Comp Metabolic Uja857 ANION GAP 10 03/17/2017 Comp Metabolic Dkt193 GLUCOSE 122 mg/dL 03/17/2017 Comp Metabolic Eae808 Creat 0.9 mg/dL 03/17/2017 Comp Metabolic Uho524 eGFR 82 ml/min/1.73m2 03/17/2017 Comp Metabolic Oyy283 BUN 22 mg/dL 03/17/2017 Comp Metabolic Uuu502 B/C Ratio 23.7 Ratio 03/17/2017 Comp Metabolic Pex596 CALCIUM 10.3 mg/dL 03/17/2017 Comp Metabolic Qhx017 ALK PHOS 62 U/L 03/17/2017 Comp Metabolic Sjd821 AST(SGOT) 19 U/L 03/17/2017 Comp Metabolic Ovd814 ALT(SGPT) 21 U/L 03/17/2017 Comp Metabolic Jrg450 BILI T 0.5 mg/dL 03/17/2017 Comp Metabolic Jpa998 ALBUMIN 4.1 g/dL 03/17/2017 Comp Metabolic Agz706 TPRO 6.9 g/dL 03/17/2017 Comp Metabolic Dkf282 GLOB 2.8 g/dL 03/17/2017 Comp Metabolic Wlc677 A/G Ratio 1.5 Ratio 03/17/2017 Comp Metabolic Qhi116 Osmo 284 mOsmo 03/17/2017 Pt Wyz2117 PT 23.7 seconds 03/12/2017 Pt Nzd4074 INR 2.1 03/12/2017 Pt Zcm0106 Low Intensity - 1.5-2.0 03/12/2017 Pt Vzq1336 Mod intensity - 2.0-3.0 03/12/2017 Pt Ueg5659 Hi intensity - 3.0-4.0 03/12/2017 Pt Oow2682 PT 21.3 seconds 02/10/2017 Pt Dgm0878 INR 1.9 02/10/2017 Pt Nbu5475 Low Intensity - 1.5-2.0 02/10/2017 Pt Dku2159 Mod intensity - 2.0-3.0 02/10/2017 Pt Spp0966 Hi intensity - 3.0-4.0 02/10/2017 Pt Ikr4326 PT 21.4 seconds 01/27/2017 Pt Cct6869 INR 1.9 01/27/2017 Pt Qse9118 Low Intensity - 1.5-2.0 01/27/2017 Pt Iqc9111 Mod intensity - 2.0-3.0 01/27/2017 Pt Ucb3147 Hi intensity - 3.0-4.0 01/27/2017 Pt Ojq8897 PT 22.0 seconds 01/19/2017 Pt Opu8510 INR 1.9 01/19/2017 Pt Kxy8168 Low Intensity - 1.5-2.0 01/19/2017 Pt Ogk3553 Mod intensity - 2.0-3.0 01/19/2017 Pt Txj5804 Hi intensity - 3.0-4.0 01/19/2017 Pt Xbo2042 PT 28.3 seconds 01/05/2017 Pt Djs2060 INR 2.6 01/05/2017 Pt Rrs4797 Low Intensity - 1.5-2.0 01/05/2017 Pt Qsh3544 Mod intensity - 2.0-3.0 01/05/2017 Pt Ked4668 Hi intensity - 3.0-4.0 01/05/2017 Pt Sjv5677 PT 29.1 seconds 12/15/2016 Pt Uhs4720 INR 2.7 12/15/2016 Pt Ils1653 Low Intensity - 1.5-2.0 12/15/2016 Pt Nif5501 Mod intensity - 2.0-3.0 12/15/2016 Pt Lyi7732 Hi intensity - 3.0-4.0 12/15/2016 Urine Culture Ucult Complete NO Growth Day 2 11/10/2016 Urine Culture Ucult Preliminary NO Growth Day 1 11/10/2016 Pt Jdd4164 PT 23.7 seconds 11/07/2016 Pt Bjq1918 INR 2.1 11/07/2016 Pt Ndk6000 Low Intensity - 1.5-2.0 11/07/2016 Pt Szg7934 Mod intensity - 2.0-3.0 11/07/2016 Pt Hhb9840 Hi intensity - 3.0-4.0 11/07/2016 Pt Mjr4598 PT 27.1 seconds 10/13/2016 Pt Nuu8976 INR 2.7 10/13/2016 Pt Ggq6518 Low Intensity - 1.5-2.0 10/13/2016 Pt Hfx8004 Mod intensity - 2.0-3.0 10/13/2016 Pt Ied7209 Hi intensity - 3.0-4.0 10/13/2016 Pt Nii8520 PT 26.3 seconds 09/23/2016 Pt Mhs2297 INR 2.6 09/23/2016 Pt Sgh7287 Low Intensity - 1.5-2.0 09/23/2016 Pt Ezv3033 Mod intensity - 2.0-3.0 09/23/2016 Pt Ghh4229 Hi intensity - 3.0-4.0 09/23/2016 Pt Aeg8089 PT 20.4 seconds 09/09/2016 Pt Hal4372 INR 1.8 09/09/2016 Pt Wes6600 Low Intensity - 1.5-2.0 09/09/2016 Pt Hfa8588 Mod intensity - 2.0-3.0 09/09/2016 Pt Ysr6178 Hi intensity - 3.0-4.0 09/09/2016 Pt Svk9078 PT 24.1 seconds 08/26/2016 Pt Wjc3940 INR 2.3 08/26/2016 Pt Bqo7743 Low Intensity - 1.5-2.0 08/26/2016 Pt Ojd4831 Mod intensity - 2.0-3.0 08/26/2016 Pt Ani8965 Hi intensity - 3.0-4.0 08/26/2016 Pt Btj0505 PT 26.1 seconds 08/12/2016 Pt Pqg4468 INR 2.6 08/12/2016 Pt Fuf1239 Low Intensity - 1.5-2.0 08/12/2016 Pt Pzr8668 Mod intensity - 2.0-3.0 08/12/2016 Pt Aya1944 Hi intensity - 3.0-4.0 08/12/2016 Pt Sdj2551 PT 23.5 seconds 07/15/2016 Pt Zsw3647 INR 2.2 07/15/2016 Pt Bnq0339 Low Intensity - 1.5-2.0 07/15/2016 Pt Sxa5502 Mod intensity - 2.0-3.0 07/15/2016 Pt Vzt6304 Hi intensity - 3.0-4.0 07/15/2016 Urine Culture Ucult Complete NO Growth Day 2 07/10/2016 Urine Culture Ucult Preliminary NO Growth Day 1 07/10/2016 Pt Jra4632 PT 27.9 seconds 06/30/2016 Pt Ssa0153 INR 2.8 06/30/2016 Pt Upt1487 Low Intensity - 1.5-2.0 06/30/2016 Pt Ons8672 Mod intensity - 2.0-3.0 06/30/2016 Pt Evp5667 Hi intensity - 3.0-4.0 06/30/2016 Pt Iib8396 PT 23.7 seconds 06/12/2016 Pt Mbm2220 INR 2.3 06/12/2016 Pt Azv2704 Low Intensity - 1.5-2.0 06/12/2016 Pt Vlr7307 Mod intensity - 2.0-3.0 06/12/2016 Pt Dvj6071 Hi intensity - 3.0-4.0 06/12/2016 Pt Ucx1525 PT 36.5 seconds 06/06/2016 Pt Muq4190 INR 4.0 06/06/2016 Pt Jui0545 Low Intensity - 1.5-2.0 06/06/2016 Pt Igw6312 Mod intensity - 2.0-3.0 06/06/2016 Pt Rtp0947 Hi intensity - 3.0-4.0 06/06/2016 Pt Vnf2306 PT 29.0 seconds 05/05/2016 Pt Lta1058 INR 2.9 05/05/2016 Pt Ljb5597 Low Intensity - 1.5-2.0 05/05/2016 Pt Dbq9839 Mod intensity - 2.0-3.0 05/05/2016 Pt Dio6772 Hi intensity - 3.0-4.0 05/05/2016 Ferritin Ord22 FERRITIN 32.7 ng/mL 05/05/2016 Tibc Ord40 Iron 76 ug/dl 05/05/2016 Tibc Ord40 UIBC 210 ug/dL 05/05/2016 Tibc Ord40 TIBC 286 ug/dL 05/05/2016 Tibc Ord40 Fe-%Sat 26.6 % 05/05/2016 Pt Xsx6333 PT 31.1 seconds 04/08/2016 Pt Cpz3689 INR 3.2 04/08/2016 Pt Ufg2874 Low Intensity - 1.5-2.0 04/08/2016 Pt Qyu0220 Mod intensity - 2.0-3.0 04/08/2016 Pt Dqq2384 Hi intensity - 3.0-4.0 04/08/2016 Pt Cao4683 PT 17.3 seconds 03/24/2016 Pt Djj3508 INR 1.5 03/24/2016 Pt Swh2268 Low Intensity - 1.5-2.0 03/24/2016 Pt Rro7510 Mod intensity - 2.0-3.0 03/24/2016 Pt Voc9480 Hi intensity - 3.0-4.0 03/24/2016 Cbc With [...] 32.4 pg 03/24/2016 Cbc With Differential Ord2 Frio% 11.3 % 03/24/2016 Cbc With Differential Ord2 Eos% 8.1 % 03/24/2016 Cbc With Differential Ord2 MCHC 33.9 pg 03/24/2016 Cbc With Differential Ord2 Baso% 0.6 % 03/24/2016 Cbc With Differential Ord2 PLT 279 K/ul 03/24/2016 Cbc With Differential Ord2 Neut ABS# 3.02 K/ul 03/24/2016 Cbc With Differential Ord2 RDW 14.3 % 03/24/2016 Cbc With Differential Ord2 Lymph ABS# 2.29 K/ul 03/24/2016 Cbc With Differential Ord2 Frio ABS# 0.8 K/ul 03/24/2016 Cbc With Differential Ord2 Eos ABS# 0.5 K/ul 03/24/2016 Cbc With Differential Ord2 Baso ABS# 0.0 K/ul 03/24/2016 Pt Tfr6666 PT 17.8 seconds 03/12/2016 Pt Hni0076 INR 1.5 03/12/2016 Pt Wsz7391 Low Intensity - 1.5-2.0 03/12/2016 Pt Dym0706 Mod intensity - 2.0-3.0 03/12/2016 Pt Qzx9602 Hi intensity - 3.0-4.0 03/12/2016 Urine Culture Ucult Preliminary NO Growth Day 1 02/29/2016 Urine Culture Ucult Complete NO Growth Day 2 02/29/2016 Lipid Ord30 CHOL 129 mg/dL 02/21/2016 Lipid Ord30 HDL 59.0 mg/dl 02/21/2016 Lipid Ord30 TRIG 90 mg/dL 02/21/2016 Lipid Ord30 LDL 52 mg/dL 02/21/2016 Lipid Ord30 C/HDL 2.2 Ratio 02/21/2016 Pt Ida6843 PT 19.8 seconds 02/21/2016 Pt Swl1076 INR 1.8 02/21/2016 Pt Wbc6332 Low Intensity - 1.5-2.0 02/21/2016 Pt Ckk0967 Mod intensity - 2.0-3.0 02/21/2016 Pt Qtx6540 Hi intensity - 3.0-4.0 02/21/2016 Comp Metabolic Uam887 NA 136 mEq/L 02/21/2016 Comp Metabolic Atw219 K 4.4 mEq/L 02/21/2016 Comp Metabolic Gcb395 CL 102 mEq/L 02/21/2016 Comp Metabolic Pam474 CO2 29.0 mEq/L 02/21/2016 Comp Metabolic Mhm900 ANION GAP 9 02/21/2016 Comp Metabolic Yyf252 GLUCOSE 118 mg/dL 02/21/2016 Comp Metabolic Gsn692 Creat 1.0 mg/dL 02/21/2016 Comp Metabolic Hgx524 eGFR 72 ml/min/1.73m2 02/21/2016 Comp Metabolic Pql363 BUN 23 mg/dL 02/21/2016 Comp Metabolic Oqa707 B/C Ratio 22.1 Ratio 02/21/2016 Comp Metabolic Zvf888 CALCIUM 9.9 mg/dL 02/21/2016 Comp Metabolic Lkx038 ALK PHOS 57 U/L 02/21/2016 Comp Metabolic Oma412 AST(SGOT) 17 U/L 02/21/2016 Comp Metabolic Jxi173 ALT(SGPT) 19 U/L 02/21/2016 Comp Metabolic Dwl850 BILI T 0.6 mg/dL 02/21/2016 Comp Metabolic Prj790 ALBUMIN 3.9 g/dL 02/21/2016 Comp Metabolic Osm523 TPRO 6.9 g/dL 02/21/2016 Comp Metabolic Gnw197 GLOB 3.0 g/dL 02/21/2016 Comp Metabolic Evf086 A/G Ratio 1.3 Ratio 02/21/2016 Comp Metabolic Dfm383 Osmo 277 mOsmo 02/21/2016 Pt Fqs2464 PT 24.1 seconds 01/15/2016 Pt Woz4159 INR 2.3 01/15/2016 Pt Umu8332 Low Intensity - 1.5-2.0 01/15/2016 Pt Xzv5719 Mod intensity - 2.0-3.0 01/15/2016 Pt Ovn7500 Hi intensity - 3.0-4.0 01/15/2016 Pt Qis0592 PT 26.5 seconds 01/03/2016 Pt Yyr2361 INR 2.6 01/03/2016 Pt Wqf4511 Low Intensity - 1.5-2.0 01/03/2016 Pt Ydz4476 Mod intensity - 2.0-3.0 01/03/2016 Pt Sdj6430 Hi intensity - 3.0-4.0 01/03/2016 Pt Hqv9008 PT 15.3 seconds 11/30/2015 Pt Sqw1486 INR 1.3 11/30/2015 Pt Udc3698 Low Intensity - 1.5-2.0 11/30/2015 Pt Bmc7532 Mod intensity - 2.0-3.0 11/30/2015 Pt Tdq3217 Hi intensity - 3.0-4.0 11/30/2015 Review of [...] lips 12/15/2016 None Full Exam - General 1995 Ears/Nose/Throat lips/teeth/gingiva Overall: normal dentition 12/15/2016 None [...] lips 10/14/2016 None Full Exam - General 1995 Ears/Nose/Throat lips/teeth/gingiva Overall: normal dentition 10/14/2016 None [...] Codes Date URINALYSIS NONAUTO W/O SCOPE CPT-4: 61559 11/07/2016 URINALYSIS NONAUTO W/O SCOPE CPT-4: 75117 02/26/2016 ADMIN INFLUENZA VIRUS VAC CPT-4: G0008 01/03/2016 FLU VACC 4 ARIANNA 3 YRS PLUS IM SNOMED CT: 10519825 CPT-4: 88289 01/03/2016 Vital Signs Date Vital 09/29/2017 Blood Pressure 1: 132/80 Code : 8480-6 Heart Rate 1: 76 bpm SpO2: 97% Weight: 204 lbs 08/11/2017 Blood Pressure 1: 132/66 Code : 8480-6 BMI: 35.0 Code : 60188-9 Heart Rate 1 : 81 bpm Height: 5'4" SpO2: 96% Weight: 204 lbs 03/16/2017 Blood Pressure 1: 132/70 Code : 8480-6 BMI: 34.5 Code : 24219-6 Heart Rate 1 : 78 bpm Height: 5'4" SpO2: 98% Weight: 201 lbs 12/15/2016 Blood Pressure 1: 140/80 Code : 8480-6 BMI: 34.2 Code : 75131-3 Heart Rate 1 : 69 bpm Height: 5'4" SpO2: 98% Weight: 199 lbs 11/07/2016 Blood Pressure 1: 158/82 Code : 8480-6 BMI: 34.7 Code : 07797-6 Heart Rate 1 : 76 bpm Height: 5'4" SpO2: 98% Weight: 202 lbs 10/14/2016 Blood Pressure 1: 140/80 Code : 8480-6 BMI: 34.0 Code : 41652-2 Heart Rate 1 : 79 bpm Height: 5'4" SpO2: 96% Weight: 198 lbs 09/10/2016 Blood Pressure 1: 158/80 Code : 8480-6 BMI: 34.3 Code : 28145-8 Heart Rate 1 : 75 bpm Height: 5'4" SpO2: 98% Weight: 200 lbs 07/08/2016 Blood Pressure 1: 160/74 Code : 8480-6 BMI: 35.2 Code : 09880-4 Heart Rate 1 : 94 bpm Height: 5'4" SpO2: 97% Weight: 205 lbs 06/16/2016 Blood Pressure 1: 138/76 Code : 8480-6 BMI: 35.0 Code : 49906-8 Heart Rate 1 : 68 bpm Height: 5'4" SpO2: 98% Weight: 204 lbs 01/31/2016 Blood Pressure 1: 136/64 Code : 8480-6 BMI: 33.6 Code : 92890-6 Heart Rate 1 : 92 bpm Height: 5'4" SpO2: 98% Weight: 196 lbs 01/03/2016 Blood Pressure 1: 142/68 Code : 8480-6 BMI: 33.8 Code : 56441-3 Heart Rate 1 : 80 bpm Height: 5'4" SpO2: 97% Weight: 197 lbs 11/30/2015 Blood Pressure 1: 158/80 Code : 8480-6 Heart Rate 1: 83 bpm SpO2: 98% 11/21/2015 Blood Pressure 1: 172/80 Code : 8480-6 BMI: 32.8 Code : 04515-5 Heart Rate 1 : 87 bpm Height: 5'4" SpO2: 98% Weight: 191 lbs Functional Status No Functional Status data History of Present Illness Symptom Name Status Result Effective Date Notes Hospital Follow Up _ pain 09/29/2017 left [...] data Encounters Encounter Performer Location Codes Date ([id number]) [id number] EST. PATIENT, LEVEL IV Diagnosis: Essential (primary) hypertension[ICD10: I10] Diagnosis: Urge incontinence[ICD10: N39.41] [facility] CPT-4: 98975 09/29/2017 ([id number]) [id number] EST. PATIENT, LEVEL IV Diagnosis: Essential (primary) hypertension[ICD10: I10] Diagnosis: Mixed hyperlipidemia[ICD10: E78.2] Diagnosis: [facility] (current) use of anticoagulants[ICD10: Z79.01] Pamela [facility] MD [facility] CPT-4: 70567 08/11/2017 ([id number]) [id number] EST. 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 PATIENT, LEVEL IV Diagnosis: Essential (primary) hypertension[ICD10: I10] Diagnosis: Mixed hyperlipidemia[ICD10: E78.2] Diagnosis: [facility] (current) use of anticoagulants[ICD10: Z79.01] Pamela Gallardo MD [facility] CPT-4: 40652 12/15/2016 ([id number]) 62939 EST. 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 PATIENT, LEVEL IV Diagnosis: Essential (primary) hypertension[ICD10: I10] Diagnosis: Mixed hyperlipidemia[ICD10: E78.2] Diagnosis: Gross hematuria[ICD10: R31.0] Pamela Gallardo MD [facility] CPT- 4: 47008 10/14/2016 ([id number]) 73840 EST. PATIENT, LEVEL IV Diagnosis: Essential (primary) hypertension[ICD10: I10] Diagnosis: [facility] (current) use of anticoagulants[ICD10: Z79.01] Diagnosis: Mixed hyperlipidemia[ICD10: E78.2] Pamela Gallardo MD [facility] CPT-4: 93809 09/10/2016 [id number] EST. PATIENT, LEVEL III Diagnosis: Gross hematuria[ICD10: R31.0] Octavia Gallardo MD [facility] CPT-4 : 12235 07/08/2016 [id number]) [id number] EST. PATIENT, LEVEL IV Diagnosis: Essential (primary) hypertension[ICD10: I10] Diagnosis: Mixed hyperlipidemia[ICD10: E78.2] Diagnosis: [facility] (current) use of anticoagulants[ICD10: Z79.01] [facility] CPT-4: 42429 06/16/2016 ([id number]) [id number] EST. PATIENT, LEVEL IV Diagnosis: Essential (primary) hypertension[ICD10: I10] Diagnosis: Mixed hyperlipidemia[ICD10: E78.2] [facility] CPT-4: 26008 01/31/2016 ([id number]) [id number] EST. PATIENT, LEVEL IV Diagnosis: Essential (primary) hypertension[ICD10: I10] Diagnosis: Mixed hyperlipidemia[ICD10: E78.2] Diagnosis: Encounter for immunization[ICD10: Z23] [facility] CPT-4: 21262 01/03/2016 ([id number]) Miscellaneous no charge Diagnosis: Essential (primary) hypertension[ICD10: I10] [facility] CPT-4: 03834 11/30/2015 ([id number]) OFFICE VISIT, NEW - LEVEL 4 Diagnosis: Essential (primary) hypertension[ICD10: I10] Diagnosis: Mixed hyperlipidemia[ICD10: E78.2] Diagnosis: Impacted cerumen, bilateral[ICD10: H61.23] [facility] CPT-4: 52090 11/21/2015 Plan of Care Planned Activity Notes [...] the pharmacy 09/29/2017 Appointment: Pamela Gallardo WPtel: [address] [place], [place] [id number] [place] (15 min) Moderate 09/29/2017 Patient Education: [...] good 08/11/2017 [facility] [phone] [facility] ([facility]) Moderate 08/11/2017 Patient Education: Patient Medication Summary Completed 08/11/2017 Appointment: Pam[facility]ardo [facility]el[facility] ([facility] min) Moderate 08/06/2017 Appointment: Pam[facility] Gallardo WPtel[facility] (15 min) Moderate 08/04/2017 Visit Plan: [...] monitor symptoms. 03/16/2017 [facility]: [facility] [phone] [facility] [place] (15 min) Moderate 03/16/2017 Patient Education: Patient Medication Summary Completed 03/16/2017 Patient Education: Obesity Completed 03/16/2017 [facility]: [facility] [phone] [facility] [place] (15 min) Moderate 12/30/2016 Visit Plan: [...] today. 12/15/2016 [facility]: [facility] [phone] [facility] [place] (15 min) Moderate 12/15/2016 Patient Education: Patient Medication Summary Completed 12/15/2016 Visit Plan: Iron deficiency rinjiv-bbvm-oilsrx bleeding- INR has been stable-continue multivitamin with iron daily Hematuria-3+ blood in urine-check PT/INR today-culture urine 11/07/2016 Appointment: [facility]ccullough [facility] [phone] [facility] [phone] [place] (15 min) Moderate 11/07/2016 Patient Education: [...] to medications. 10/14/2016 Appointment: Pamela Gallardo WPtel: [facility] (15 min) Moderate 10/14/2016 Patient Education: Patient Medication Summary Completed 10/14/2016 Patient Education: Obesity Completed 10/14/2016 Appointment: Pamela Gallardo WPtel[id number] (15 min) Moderate 10/09/2016 Visit Plan: Hypertension [...] concerns. 07/08/2016 Appointment: Oct[facility]arate [facility] [phone] [facility] [id number] [place] (15 min) Moderate 07/08/2016 Patient Education: [...] with coumadin. 06/16/2016 Appointment: Pam[facility] Gallardo [facility] [phone] [id number] [place] (15 min) Moderate 06/16/2016 Patient Education: Patient Medication Summary Completed 06/16/2016 Patient Education: Obesity Completed 06/16/2016 App[facility]ment: [facility] [phone] [id number] (15 min) Moderate 05/22/2016 Patient Education: Patient [...] to medications. 01/31/2016 Appointment: [facility] [phone] [id number] (15 min) Moderate 01/31/2016 Patient Education: Patient [...] to medications. 01/03/2016 Appointment: [facility] [phone] [id number] [place] (15 min) Moderate 01/03/2016 Patient Education: [...] to medications. 11/21/2015 Appointment: Pamela Gallardo WPtel: [address] [place], [place] [id number] New Patient 11/21/2015 Patient Education: Patient Medication Summary Completed 11/21/2015 Patient Education: Obesity Completed 11/21/[address] Lincoln always kept INR close to [...] any questions or concerns. . Iron deficiency mgoxvi-hnez-ryaoto bleeding-INR has been stable-continue multivitamin with iron [...] labs serially - last INR good . Hypertension - well controlled - continue [...] medications. Chronic anticoagulation - continue with coumadin. blood pressure is uncontrolled - i recommend [...]
--- OUTSIDE RECORDS SUMMARY | 2018-02-20 09:25 | XMS REPORT | Continuity of Care Document ---
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 09/20/2014 QUYEN RAMIREZ MD S Ot [...] LEYVA, CHA-RUBEN Ot V45.72 11/08/2014 STEVE LEYVA, CHA-RUBEN Ot V58.61 11/08/2014 STEVE LEYVA, CHA-RUBEN Ot V58.69 11/08/2014 STEVE LEYVA, CHA-RUBEN Ot V67.1 11/22/2014 STEVE LEYVA, CHA-RUBEN Ot 401.9 11/22/2014 STEVE LEYVA, CHA-RUBEN Ot V10.05 11/22/2014 STEVE LEYVA, CHA-RUBEN Ot V10.46 11/22/2014 STEVE LEYVA, CAH-RUBEN Ot V12.51 11/22/2014 STEVE LEYVA, REECE Ot [...] INI 04/27/[address] IN [facility] NON-INSTITUT (PRIVATE 04/27/2015 Ot Y99.8 OTHER EXTERNAL CAUSE STATUS 04/27/2015 Ot Z79.01 FPC ( CURRENT) USE OF ANTICOAGULANT 06/26/2015 STEVE LEYVA, REECE Ot Z08 06/26/2015 STEVE LEYVA, REECE Ot Z85.038 06/26/2015 STEVE LEYVA, CHA-RUBEN Ot Z85.46 07/04/2015 STEVE LEYVA, CHA-RUBEN Ot Z08 07/04/2015 STEVE LEYVA, CHA-RUBEN Ot Z85.038 07/04/2015 STEVE LEYVA, CHA-RUBEN Ot Z85.46 08/12/2015 STEVE LEYVA, REECE Ot D64.9 ANEMIA, UNSPECIFIED 08/12/2015 STEVE LEYVA, REECE Ot Z08 ENCNTR FOR FOLLOW-UP EXAM AFTER TRTMT FO 08/12/2015 REECE WILSON MD Ot Z79.01 DIGITAL PRODUCTION MANAGER (CURRENT) USE OF ANTICOAGULANT 08/12/2015 REECE WILSON [...] 12/27/2015 JOSE ALEJANDRO DONALDSON MD Ot Z79.01 FPC (CURRENT) USE OF ANTICOAGULANT 01/02/2016 REECE WILSON MD, Ot Z08 ENCNTR FOR FOLLOW-UP EXAM AFTER TRTMT FO 01/02/2016 REECE WILSON MD, Ot Z85.038 PERSONAL HISTORY OF MALIGNANT NEOPLASM O 01/02/2016 REECE WILSON MD, Ot Z85.46 PERSONAL HISTORY OF MALIGNANT NEOPLASM O 01/27/2016 REECE WILSON MD Ot D64.9 ANEMIA, UNSPECIFIED 01/27/2016 ERECE WILSON MD, Ot Z08 ENCNTR FOR FOLLOW-UP EXAM AFTER TRTMT FO 01/27/2016 REECE WILSON MD, Ot Z79.01 DIGITAL PRODUCTION MANAGER (CURRENT) USE OF ANTICOAGULANT 01/27/2016 REECE WILSON [...] FO 01/28/2016 REECE WILSON MD, Ot Z79.01 DIGITAL PRODUCTION MANAGER (CURRENT) USE OF ANTICOAGULANT 01/28/2016 REECE WILSON [...] 02/20/2016 JOSE ALEJANDRO DONALDSON MD Ot Z79.01 FPC (CURRENT) USE OF ANTICOAGULANT 02/21/2016 JOSE ALEJANDRO DONALDSON MD, Ot E78.2 MIXED HYPERLIPIDEMIA 02/21/2016 JOSE ALEJANDRO DONALDSON MD Ot I10 ESSENTIAL (PRIMARY) HYPERTENSION 02/21/2016 JOSE ALEJANDRO DONALDSON MD, Ot Z79.01 FPC (CURRENT) USE OF ANTICOAGULANT 02/21/2016 TJ FLOWER [...] FLOWER APRN Ot Y92.[address] IN [facility] NON-INSTITUT (PRIVATE 02/21/2016 TJ FLOWER APRN Ot Y93.9 ACTIVITY, UNSPECIFIED 02/21/2016 TJ FLOWER APRN Ot Y99.8 OTHER EXTERNAL CAUSE STATUS 02/21/2016 TJ FLOWER APRN Ot Z79.01 DIGITAL PRODUCTION MANAGER (CURRENT) USE OF ANTICOAGULANT 02/21/2016 TJ FLOWER APRN Ot Z79.899 OTHER DIGITAL PRODUCTION MANAGER (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 THERAPY 02/21/2016 TJ FLOWER APRN [...] PROJECTED 02/22/2016 TJ FLOWER APRN Ot Y92.[address] [facility] [address] IN [facility] 02/22/2016 TJ FLOWER APRN Ot Y93.9 ACTIVITY, UNSPECIFIED 02/22/2016 TJ FLOWER APRN Ot Y99.8 OTHER EXTERNAL CAUSE STATUS 02/22/2016 TJ FLOWER APRN Ot Z79.01 DIGITAL PRODUCTION MANAGER (CURRENT) USE OF ANTICOAGULANT 02/22/2016 TJ FLOWER APRN Ot Z79.899 OTHER FPC (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 THERAPY 02/22/2016 TJ FLOWER APRN [...] 02/22/2016 JOSE ALEJANDRO DONALDSON MD Ot Z79.01 FPC (CURRENT) USE OF ANTICOAGULANT 02/27/2016 TJ FLOWER [...] PROJECTED 02/27/2016 TJ FLOWER APRN Ot Y92.[address] [facility] [address] IN [facility] NON-INSTIT[facility] (PRIVATE 02/27/2016 TJ FLOWER APRN Ot Y93.9 ACTIVITY, UNSPECIFIED 02/27/2016 TJ FLOWER APRN Ot Y99.8 OTHER EXTERNAL CAUSE STATUS 02/27/2016 TJ FLOWER APRN Ot Z79.01 DIGITAL PRODUCTION MANAGER (CURRENT) USE OF ANTICOAGULANT 02/27/2016 TJ FLOWER APRN Ot Z79.899 OTHER FPC (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 THERAPY 02/27/2016 TJ FLOWER APRN [...] FO 11/12/2016 REECE WILSON MD, Ot Z79.01 DIGITAL PRODUCTION MANAGER (CURRENT) USE OF ANTICOAGULANT 11/12/2016 REECE WILSON MD Ot Z79.899 OTHER FPC (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 THERAPY 11/12/2016 REECE WILSON MD, [...] FO 12/01/2016 REECE WILSON MD, Ot Z79.01 FPC (CURRENT) USE OF ANTICOAGULANT 12/01/2016 REECE WILSON MD Ot Z79.899 OTHER FPC (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 THERAPY 12/01/2016 REECE WILSON MD [...] FO 12/09/2016 REECE WILSON MD Ot Z79.01 DIGITAL PRODUCTION MANAGER (CURRENT) USE OF ANTICOAGULANT 12/09/2016 REECE WILSON MD Ot Z79.899 OTHER FPC (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 THERAPY 12/09/2016 REECE WILSON MD [...] Ot 455.3 EXT HEMORRHOID W/O COMPL 12/22/2016 PETER HARDY MD Ot 562.10 DIVERTICULOSIS COLON [...] 12/22/2016 JOSE ALEJANDRO DONALDSON MD Ot Z79.01 DIGITAL PRODUCTION MANAGER (CURRENT) USE OF ANTICOAGULANT 12/22/2016 REECE WILSON MD Ot C79.51 SECONDARY MALIGNANT NEOPLASM OF BONE 12/22/2016 REECE WILSON MD Ot D64.9 ANEMIA, UNSPECIFIED 12/22/2016 REECE WILSON MD Ot E83.52 HYPERCALCEMIA 12/22/2016 REECE WILSON MD Ot Z08 ENCNTR FOR FOLLOW-UP EXAM AFTER TRTMT FO 12/22/2016 REECE WILSON MD Ot Z79.01 FPC (CURRENT) USE OF ANTICOAGULANT 12/22/2016 REECE WILSON MD Ot Z79.899 OTHER FPC (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 THERAPY 12/22/2016 REECE WILSON MD [...] ENCOUNTER 12/22/2016 TJ FLOWER APRN Ot Z79.01 FPC (CURRENT) USE OF ANTICOAGULANT 12/22/2016 TJ FLOWER [...] ENCOUNTER 12/28/2016 TJ FLOWER APRN Ot Z79.01 DIGITAL PRODUCTION MANAGER (CURRENT) USE OF ANTICOAGULANT 12/28/2016 TJ FLOWER [...] FO 01/03/2017 REECE WILSON MD, Ot Z79.01 DIGITAL PRODUCTION MANAGER (CURRENT) USE OF ANTICOAGULANT 01/03/2017 REECE WILSON MD Ot Z79.899 OTHER FPC (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 THERAPY 01/03/2017 REECE WILSON MD [...] FO 02/09/2017 REECE WILSON MD Ot Z79.01 DIGITAL PRODUCTION MANAGER (CURRENT) USE OF ANTICOAGULANT 02/09/2017 REECE WILSON MD Ot Z79.899 OTHER FPC (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 THERAPY 02/09/2017 REECE WILSON MD [...] FO 03/02/2017 REECE WILSON MD, Ot Z79.01 FPC (CURRENT) USE OF ANTICOAGULANT 03/02/2017 REECE WILSON MD Ot Z79.899 OTHER DIGITAL PRODUCTION MANAGER (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 THERAPY 03/02/2017 REECE WILSON MD, Ot Z85.038 PERSONAL HISTORY OF MALIGNANT NEOPLASM O 03/02/2017 REECE WILSON MD, Ot Z85.46 PERSONAL HISTORY OF MALIGNANT NEOPLASM O 03/02/2017 REECE WILSON MD, Ot Z86.718 PERSONAL HISTORY OF OTHER VENOUS THROMBO 03/05/2017 REECE WILSON MD, Ot C79.51 SECONDARY MALIGNANT NEOPLASM OF BONE 03/05/2017 REECE WILSON MD, Ot D64.9 ANEMIA, UNSPECIFIED 03/05/2017 REECE WILSON MD Ot E83.52 HYPERCALCEMIA 03/05/2017 REECE WILSON MD, Ot Z08 ENCNTR FOR FOLLOW-UP EXAM AFTER TRTMT FO 03/05/2017 REECE WILSON MD, Ot Z79.01 DIGITAL PRODUCTION MANAGER (CURRENT) USE OF ANTICOAGULANT 03/05/2017 REECE WILSON MD Ot Z79.899 OTHER FPC (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 THERAPY 03/05/2017 REECE WILSON MD [...] FO 04/16/2017 REECE WILSON MD, Ot Z79.01 FPC (CURRENT) USE OF ANTICOAGULANT 04/16/2017 REECE WILSON MD, Ot Z79.899 OTHER DIGITAL PRODUCTION MANAGER (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 THERAPY 04/16/2017 REECE WILSON MD, [...] 07/17/2017 JOSE ALEJANDRO DONALDSON MD Ot Z79.01 FPC (CURRENT) USE OF ANTICOAGULANT 08/25/2017 REECE WILSON MD Ot C61 MALIGNANT NEOPLASM OF PROSTATE 08/25/2017 REECE WILSON MD, Ot C79.51 SECONDARY MALIGNANT NEOPLASM OF BONE 08/25/2017 REECE WILSON MD, Ot D64.9 ANEMIA, UNSPECIFIED 08/25/2017 REECE WILSON MD, Ot E83.52 HYPERCALCEMIA 08/25/2017 REECE WILSON MD, Ot Z79.01 DIGITAL PRODUCTION MANAGER (CURRENT) USE OF ANTICOAGULANT 08/25/2017 REECE WILSON MD, Ot Z79.899 OTHER DIGITAL PRODUCTION MANAGER (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 THERAPY 08/25/2017 REECE WILSON MD, [...] HYPERCALCEMIA 09/02/2017 REECE WILSON MD, Ot Z79.01 DIGITAL PRODUCTION MANAGER (CURRENT) USE OF ANTICOAGULANT 09/02/2017 REECE WILSON MD, Ot Z79.899 OTHER FPC (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 THERAPY 09/02/2017 REECE WILSON MD, Ot Z85.038 PERSONAL HISTORY OF MALIGNANT NEOPLASM O 09/02/2017 REECE WILSON MD, Ot Z86.718 PERSONAL HISTORY OF OTHER VENOUS THROMBO 09/02/2017 REECE WILSON MD, Ot Z90.49 ACQUIRED ABSENCE OF OTHER SPECIFIED PART 09/21/2017 PETER HARDY MD, Ot V72.84 EXAM PRE-OPERATIVE NOS 09/21/2017 PETER HARDY MD, Ot 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 09/21/2017 PETER HARDY MD, Ot 455.0 INT HEMORRHOID W/O COMPL 09/21/2017 PETER HARDY MD, Ot 455.3 EXT HEMORRHOID W/O COMPL 09/21/2017 PETER HARDY MD Ot 562.10 DIVERTICULOSIS COLON (W/O MENT OF HEMORR 09/21/2017 PETER HARDY MD, Ot V10.05 HX OF COLONIC MALIGNANCY 09/21/2017 PETER HARDY MD Ot V58.61 ANTICOAGULANTS,LT,CURRENT USE 09/21/2017 PETER HARDY MD Ot V58.69 OTH MED,LT,CURRENT USE 09/21/2017 TROY LEYVA, SVITLANA Salcedo Ot 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 09/21/2017 OTHER, UNLISTED Ot Z48.812 ENCNTR FOR SURGICAL AFTCR FOLLOWING SURG 09/21/2017 OTHER, UNLISTED Ot Z95.5 PRESENCE OF CORONARY ANGIOPLASTY IMPLANT 09/21/2017 JOSE ALEJANDRO DONALDSON MD Ot E78.2 MIXED HYPERLIPIDEMIA 09/21/2017 JOSE ALEJANDRO DONALDSON MD Ot I10 ESSENTIAL (PRIMARY) HYPERTENSION 09/21/2017 JOSE ALEJANDRO DONALDSON MD Ot Z79.01 FPC (CURRENT) USE OF ANTICOAGULANT 09/21/2017 REECE WILSON MD Ot C61 MALIGNANT NEOPLASM OF PROSTATE 09/21/2017 REECE WILSON MD Ot C79.51 SECONDARY MALIGNANT NEOPLASM OF BONE 09/21/2017 REECE WILSON MD Ot D64.9 ANEMIA, UNSPECIFIED 09/21/2017 REECE WILSON MD Ot E83.52 HYPERCALCEMIA 09/21/2017 REECE WILSON MD, Ot Z79.01 DIGITAL PRODUCTION MANAGER (CURRENT) USE OF ANTICOAGULANT 09/21/2017 REECE WILSON MD, Ot Z79.899 OTHER DIGITAL PRODUCTION MANAGER (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 THERAPY 09/21/2017 REECE WILSON MD Ot Z85.038 PERSONAL HISTORY OF MALIGNANT NEOPLASM O 09/21/2017 REECE WILSON MD Ot Z86.718 PERSONAL HISTORY OF OTHER VENOUS THROMBO 09/21/2017 REECE WILSON MD Ot Z90.49 ACQUIRED ABSENCE OF OTHER SPECIFIED PART 09/21/2017 TJ FLOWER APRN Ot F41.9 ANXIETY DISORDER, UNSPECIFIED 09/21/2017 TJ FLOWER APRN Ot I10 ESSENTIAL (PRIMARY) HYPERTENSION 09/21/2017 TJ FLOWER APRN Ot R07.89 OTHER CHEST PAIN 09/21/2017 TJ FLOWER APRN Ot S30.1XXA CONTUSION OF ABDOMINAL WALL, INITIAL ENC 09/21/2017 TJ FLOWER APRN Ot W01.198A FALL SAME LEV FROM SLIP/TRIP W STRIKE AG 09/21/2017 TJ FLOWER APRN Ot Z79.01 DIGITAL PRODUCTION MANAGER (CURRENT) USE OF ANTICOAGULANT 09/21/2017 TJ FLOWER APRN Ot Z85.038 PERSONAL HISTORY OF MALIGNANT NEOPLASM O 09/21/2017 TJ FLOWER APRN Ot Z87.19 PERSONAL HISTORY OF OTHER DISEASES OF TH 09/21/2017 TJ FLOWER APRN Ot Z90.49 ACQUIRED ABSENCE OF OTHER SPECIFIED PART 09/21/2017 TJ FLOWER APRN Ot Z98.890 OTHER SPECIFIED POSTPROCEDURAL STATES 09/23/2017 TJ FLOWER APRN Ot F41.9 ANXIETY DISORDER, UNSPECIFIED 09/23/2017 TJ FLOWER APRN Ot I10 ESSENTIAL (PRIMARY) HYPERTENSION 09/23/2017 TJ FLOWER APRN Ot R07.89 OTHER CHEST PAIN 09/23/2017 TJ FLOWER APRN Ot S30.1XXA CONTUSION OF ABDOMINAL WALL, INITIAL ENC 09/23/2017 TJ FLOWER APRN Ot W01.198A FALL SAME LEV FROM SLIP/TRIP W STRIKE AG 09/23/2017 TJ FLOWER APRN Ot Z79.01 DIGITAL PRODUCTION MANAGER (CURRENT) USE OF ANTICOAGULANT 09/23/2017 TJ FLOWER APRN Ot Z85.038 PERSONAL HISTORY OF MALIGNANT NEOPLASM O 09/23/2017 TJ FLOWER APRN Ot Z87.19 PERSONAL HISTORY OF OTHER DISEASES OF TH 09/23/2017 TJ FLOWER APRN Ot Z90.49 ACQUIRED ABSENCE OF OTHER SPECIFIED PART 09/23/2017 TJ FLOWER APRN Ot Z98.890 OTHER SPECIFIED POSTPROCEDURAL STATES 10/15/2017 REECE WILSON MD Ot C61 MALIGNANT NEOPLASM OF PROSTATE 10/15/2017 REECE WILSON MD Ot C79.51 SECONDARY MALIGNANT NEOPLASM OF BONE 10/15/2017 REECE WILSON MD Ot D64.9 ANEMIA, UNSPECIFIED 10/15/2017 REECE WILSON MD Ot E83.52 HYPERCALCEMIA 10/15/2017 REECE WILSON MD Ot Z79.01 DIGITAL PRODUCTION MANAGER (CURRENT) USE OF ANTICOAGULANT 10/15/2017 REECE WILSON MD Ot Z79.899 OTHER FPC (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 THERAPY 10/15/2017 REECE WILSON MD, Ot Z85.038 PERSONAL HISTORY OF MALIGNANT NEOPLASM O 10/15/2017 STEVE LEYVA, REECE Ot Z86.718 PERSONAL HISTORY OF OTHER VENOUS THROMBO 10/15/2017 REECE WILSON MD Ot Z90.49 ACQUIRED ABSENCE OF OTHER SPECIFIED PART 11/17/2017 ORTIZ HONEYCUTT DO Ot D12.0 BENIGN NEOPLASM OF CECUM 11/17/2017 ORTIZ HONEYCUTT DO Ot D12.3 BENIGN NEOPLASM OF TRANSVERSE COLON 11/17/2017 ORTIZ HONEYCUTT DO Ot I10 ESSENTIAL (PRIMARY) HYPERTENSION 11/17/2017 ORTIZ HONEYCUTT DO Ot K21.9 GASTRO-ESOPHAGEAL REFLUX DISEASE WITHOUT 11/17/2017 ORTIZ HONEYCUTT DO Ot Z12.11 ENCOUNTER FOR SCREENING FOR MALIGNANT NE 11/17/2017 ORTIZ HONEYCUTT DO Ot Z79.01 DIGITAL PRODUCTION MANAGER (CURRENT) USE OF ANTICOAGULANT 11/17/2017 ORTIZ HONEYCUTT DO Ot Z79.82 DIGITAL PRODUCTION MANAGER (CURRENT) USE OF ASPIRIN 11/17/2017 ORTIZ HONEYCUTT DO Ot Z85.038 PERSONAL HISTORY OF MALIGNANT NEOPLASM O 11/17/2017 ORTIZ HONEYCUTT DO Ot Z87.891 PERSONAL HISTORY OF NICOTINE DEPENDENCE 11/17/2017 ORTIZ HONEYCUTT DO Ot Z95.5 PRESENCE OF CORONARY ANGIOPLASTY IMPLANT 11/17/2017 ORTIZ HONEYCUTT DO Ot 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 11/26/2017 ORTIZ HONEYCUTT DO Ot D12.0 BENIGN NEOPLASM OF CECUM 11/26/2017 ORTIZ HONEYCUTT DO Ot D12.3 BENIGN NEOPLASM OF TRANSVERSE COLON 11/26/2017 ORTIZ HONEYCUTT DO Ot I10 ESSENTIAL (PRIMARY) HYPERTENSION 11/26/2017 ORTIZ HONEYCUTT DO Ot K21.9 GASTRO-ESOPHAGEAL REFLUX DISEASE WITHOUT 11/26/2017 ORTIZ HONEYCUTT DO Ot Z12.11 ENCOUNTER FOR SCREENING FOR MALIGNANT NE 11/26/2017 ORTZI HONEYCUTT DO Ot Z79.01 DIGITAL PRODUCTION MANAGER (CURRENT) USE OF ANTICOAGULANT 11/26/2017 ORTIZ HONEYCUTT DO Ot Z79.82 DIGITAL PRODUCTION MANAGER (CURRENT) USE OF ASPIRIN 11/26/2017 ORTIZ HONEYCUTT DO Ot Z85.038 PERSONAL HISTORY OF MALIGNANT NEOPLASM O 11/26/2017 ORTIZ HONEYCUTT DO Ot Z87.891 PERSONAL HISTORY OF NICOTINE DEPENDENCE 11/26/2017 ORTIZ HONEYCUTT DO Ot Z95.5 PRESENCE OF CORONARY ANGIOPLASTY IMPLANT 11/26/2017 ORTIZ HONEYCUTT DO Ot 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 01/12/2018 NALDO GLEASON MD, Ot F41.9 ANXIETY DISORDER, UNSPECIFIED 01/12/2018 NALDO GLEASON MD Ot I10 ESSENTIAL (PRIMARY) HYPERTENSION 01/12/2018 NALDO GLEASON MD Ot S91.115A LAC W/O FB OF LEFT LESSER TOE(S) W/O DAM 01/12/2018 NALDO GLEASON MD Ot 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 01/12/2018 NALDO GLEASON MD Ot W26.8XXA CONTACT WITH OTHER SHARP OBJECT(S), NEC, 01/12/2018 NALDO GLEASON MD Ot Z79.01 DIGITAL PRODUCTION MANAGER (CURRENT) USE OF ANTICOAGULANT 01/12/2018 NALDO GLEASON MD Ot Z79.82 DIGITAL PRODUCTION MANAGER (CURRENT) USE OF ASPIRIN 01/12/2018 NALDO GLEASON MD Ot Z80.0 FAMILY HISTORY OF MALIGNANT NEOPLASM OF 01/12/2018 NALDO GLEASON MD Ot Z85.038 PERSONAL HISTORY OF MALIGNANT NEOPLASM O 01/12/2018 NALDO GLEASON MD Ot Z85.46 PERSONAL HISTORY OF MALIGNANT NEOPLASM O 01/12/2018 NALDO GLEASON MD Ot Z87.19 PERSONAL HISTORY OF OTHER DISEASES OF TH 01/12/2018 NALDO GLEASON MD Ot Z87.891 PERSONAL HISTORY OF NICOTINE DEPENDENCE 01/12/2018 NALDO GLEASON MD Ot Z90.49 ACQUIRED ABSENCE OF OTHER SPECIFIED PART 01/12/2018 NALDO GLEASON MD Ot Z98.890 OTHER SPECIFIED POSTPROCEDURAL STATES 01/13/2018 NALDO GLEASON MD, Ot F41.9 ANXIETY DISORDER, UNSPECIFIED 01/13/2018 NALDO GLEASON MD Ot I10 ESSENTIAL (PRIMARY) HYPERTENSION 01/13/2018 NALDO GLEASON MD Ot S91.115A LAC W/O FB OF LEFT LESSER TOE(S) W/O DAM 01/13/2018 NALDO GLEASON MD Ot 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 01/13/2018 NALDO GLEASON MD, Ot W26.8XXA CONTACT WITH OTHER SHARP OBJECT(S), NEC, 01/13/2018 NALDO GLEASON MD Ot Z79.01 DIGITAL PRODUCTION MANAGER (CURRENT) USE OF ANTICOAGULANT 01/13/2018 NALDO GLEASON MD Ot Z79.82 FPC (CURRENT) USE OF ASPIRIN 01/13/2018 NALDO GLEASON MD Ot Z80.0 FAMILY HISTORY OF MALIGNANT NEOPLASM OF 01/13/2018 NALDO GLEASON MD Ot Z85.038 PERSONAL HISTORY OF MALIGNANT NEOPLASM O 01/13/2018 NALDO GLEASON MD Ot Z85.46 PERSONAL HISTORY OF MALIGNANT NEOPLASM O 01/13/2018 NALDO GLEASON MD Ot Z87.19 PERSONAL HISTORY OF OTHER DISEASES OF TH 01/13/2018 NALDO GLEASON MD Ot Z87.891 PERSONAL HISTORY OF NICOTINE DEPENDENCE 01/13/2018 NALDO GLEASON MD Ot Z90.49 ACQUIRED ABSENCE OF OTHER SPECIFIED PART 01/13/2018 NALDO GLEASON MD Ot Z98.890 OTHER SPECIFIED POSTPROCEDURAL STATES 01/14/2018 TJ FLOWER GAS UTILITY WORKER Ot 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 01/14/2018 TJ FLOWER GAS UTILITY WORKER Ot X58.XXXD EXPOSURE TO OTHER SPECIFIED FACTORS, SUB 01/21/2018 NALDO GLEASON MD Ot F41.9 ANXIETY DISORDER, UNSPECIFIED 01/21/2018 NALDO GLEASON MD Ot I10 ESSENTIAL (PRIMARY) HYPERTENSION 01/21/2018 NALDO GLEASON MD Ot S91.115A LAC W/O FB OF LEFT LESSER TOE(S) W/O DAM 01/21/2018 NALDO GLEASON MD Ot 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 01/21/2018 NALDO GLEASON MD, Ot W26.8XXA CONTACT WITH OTHER SHARP OBJECT(S), NEC, 01/21/2018 NALDO GLEASON MD, Ot Z79.01 DIGITAL PRODUCTION MANAGER (CURRENT) USE OF ANTICOAGULANT 01/21/2018 NALDO GLEASON MD, Ot Z79.82 DIGITAL PRODUCTION MANAGER (CURRENT) USE OF ASPIRIN 01/21/2018 NALDO GLEASON MD, Ot Z80.0 FAMILY HISTORY OF MALIGNANT NEOPLASM OF 01/21/2018 NALDO GLEASON MD, Ot Z85.038 PERSONAL HISTORY OF MALIGNANT NEOPLASM O 01/21/2018 NALDO GLEASON MD, Ot Z85.46 PERSONAL HISTORY OF MALIGNANT NEOPLASM O 01/21/2018 NALDO GLEASON MD, Ot Z87.19 PERSONAL HISTORY OF OTHER DISEASES OF TH 01/21/2018 NALDO GLEASON MD, Ot Z87.891 PERSONAL HISTORY OF NICOTINE DEPENDENCE 01/21/2018 NALDO GLEASON MD, Ot Z90.49 ACQUIRED ABSENCE OF OTHER SPECIFIED PART 01/21/2018 NALDO GLEASON MD, Ot Z98.890 OTHER SPECIFIED POSTPROCEDURAL STATES Procedures Code Description Performed By Performed On [...] or blood by coagulation assay 1.4 0.8-1.4 Complete blood count (CBC) with automated white blood cell (WBC) differential - 09/21/17 12:25 Blood leukocytes automated count (number/volume) 6.4 10*3/uL 4.3-11.0 Blood erythrocytes automated count (number/volume) 3.76 10*6/uL 4.35-5.85 Venous blood hemoglobin measurement (mass/volume) 12.4 g/dL 13.3-17.7 Blood hematocrit (volume fraction) 36 % 40-54 Automated erythrocyte mean corpuscular volume 95 [foz_us] 80-99 Automated erythrocyte mean corpuscular hemoglobin (mass per erythrocyte) 33 pg 25-34 Automated erythrocyte mean corpuscular hemoglobin concentration measurement ( mass/volume) 35 g/dL 32-36 Automated erythrocyte distribution width ratio 14.0 % 10.0-14.5 Automated blood platelet count (count/volume) 256 10*3/uL 130-400 Automated blood platelet mean volume measurement 9.0 [foz_us] 7.4-10.4 Automated blood neutrophils/100 leukocytes 59 % 42-75 Automated blood lymphocytes/100 leukocytes 25 % 12-44 Blood monocytes/100 leukocytes 10 % 0-12 Automated blood eosinophils/100 leukocytes 6 % 0-10 Automated blood basophils/100 leukocytes 0 % 0-10 Blood neutrophils automated count (number/volume) 3.8 10*3 1.8-7.8 Blood lymphocytes automated count (number/volume) 1.6 10*3 1.0-4.0 Blood monocytes automated count (number/volume) 0.6 10*3 0.0-1.0 Automated eosinophil count 0.4 10*3/uL 0.0-0.3 Automated blood basophil count (count/volume) 0.0 10*3/uL 0.0-0.1 PT panel in platelet poor plasma by coagulation assay - 09/21/17 12:25 Prothrombin time (PT) in platelet poor plasma by coagulation assay 33.0 s 12.2-14.7 INR in platelet poor plasma or blood by coagulation assay 3.2 0.8-1.4 Comprehensive metabolic panel - 09/21/17 12:25 Serum or plasma sodium measurement (moles/volume) 141 mmol/L 135-145 Serum or plasma potassium measurement (moles/volume) 4.8 mmol/L 3.6-5.0 Serum or plasma chloride measurement (moles/volume) 107 mmol/L 98-107 Carbon dioxide 28 mmol/L 21-32 Serum or plasma anion gap determination (moles/volume) 6 mmol/L 5-14 Serum or plasma urea nitrogen measurement (mass/volume) 22 mg/dL 7-18 Serum or plasma creatinine measurement (mass/volume) 1.03 mg/dL 0.60-1.30 Serum or plasma urea nitrogen/creatinine mass ratio 21 NRG Serum or plasma creatinine measurement with calculation of estimated glomerular filtration rate > NRG Serum or plasma glucose measurement (mass/volume) 99 mg/dL 70-105 Serum or plasma calcium measurement (mass/volume) 11.0 mg/dL 8.5-10.1 Serum or plasma total bilirubin measurement (mass/volume) 0.6 mg/dL 0.1-1.0 Serum or plasma alkaline phosphatase measurement (enzymatic activity/volume) 67 U/L 40-136 Serum or plasma aspartate aminotransferase measurement (enzymatic activity/ volume) 18 U/L 5-34 Serum or plasma alanine aminotransferase measurement (enzymatic activity/volume ) 24 U/L 0-55 Serum or plasma protein measurement (mass/volume) 7.3 g/dL 6.4-8.2 Serum or plasma albumin measurement (mass/volume) 4.1 g/dL 3.2-4.5 Complete blood count (CBC) with automated white blood cell (WBC) differential - 01/11/18 22:12 Blood leukocytes automated count (number/volume) 6.4 10*3/uL 4.3-11.0 Blood erythrocytes automated count (number/volume) 3.41 10*6/uL 4.35-5.85 Venous blood hemoglobin measurement (mass/volume) 11.4 g/dL 13.3-17.7 Blood hematocrit (volume fraction) 33 % 40-54 Automated erythrocyte mean corpuscular volume 96 [foz_us] 80-99 Automated erythrocyte mean corpuscular hemoglobin (mass per erythrocyte) 33 pg 25-34 Automated erythrocyte mean corpuscular hemoglobin concentration measurement ( mass/volume) 35 g/dL 32-36 Automated erythrocyte distribution width ratio 13.9 % 10.0-14.5 Automated blood platelet count (count/volume) 239 10*3/uL 130-400 Automated blood platelet mean volume measurement 9.4 [foz_us] 7.4-10.4 Automated blood neutrophils/100 leukocytes 51 % 42-75 Automated blood lymphocytes/100 leukocytes 30 % 12-44 Blood monocytes/100 leukocytes 10 % 0-12 Automated blood eosinophils/100 leukocytes 9 % 0-10 Automated blood basophils/100 leukocytes 0 % 0-10 Blood neutrophils automated count (number/volume) 3.3 10*3 1.8-7.8 Blood lymphocytes automated count (number/volume) 1.9 10*3 1.0-4.0 Blood monocytes automated count (number/volume) 0.6 10*3 0.0-1.0 Automated eosinophil count 0.6 10*3/uL 0.0-0.3 Automated blood basophil count (count/volume) 0.0 10*3/uL 0.0-0.1 PT panel in platelet poor plasma by coagulation assay - 01/11/18 22:12 Prothrombin time (PT) in platelet poor plasma by coagulation assay 26.6 s 12.2-14.7 INR in platelet poor plasma or blood by coagulation assay 2.4 0.8-1.4 Activated partial thromboplastin time (aPTT) in platelet poor plasma bycoagulation assay - 01/11/18 22:12 Activated partial thromboplastin time (aPTT) in platelet poor plasma bycoagulation assay 40 s 24-35 Comprehensive metabolic panel - 01/11/18 22:12 Serum or plasma sodium measurement (moles/volume) 141 mmol/L 135-145 Serum or plasma potassium measurement (moles/volume) 3.6 mmol/L 3.6-5.0 Serum or plasma chloride measurement (moles/volume) 109 mmol/L 98-107 Carbon dioxide 21 mmol/L 21-32 Serum or plasma anion gap determination (moles/volume) 11 mmol/L 5-14 Serum or plasma urea nitrogen measurement (mass/volume) 24 mg/dL 7-18 Serum or plasma creatinine measurement (mass/volume) 0.99 mg/dL 0.60-1.30 Serum or plasma urea nitrogen/creatinine mass ratio 24 NRG Serum or plasma creatinine measurement with calculation of estimated glomerular filtration rate > NRG Serum or plasma glucose measurement (mass/volume) 103 mg/dL 70-105 Serum or plasma calcium measurement (mass/volume) 10.0 mg/dL 8.5-10.1 Serum or plasma total bilirubin measurement (mass/volume) 0.4 mg/dL 0.1-1.0 Serum or plasma alkaline phosphatase measurement (enzymatic activity/volume) 53 U/L 40-136 Serum or plasma aspartate aminotransferase measurement (enzymatic activity/ volume) 20 U/L 5-34 Serum or plasma alanine aminotransferase measurement (enzymatic activity/volume ) 23 U/L 0-55 Serum or plasma protein measurement (mass/volume) 6.8 g/dL 6.4-8.2 Serum or plasma albumin measurement (mass/volume) 4.0 g/dL 3.2-4.5 CALCIUM CORRECTED 10.0 mg/dL 8.5-10.1 Encounters ACCT No. Visit Date/Time Discharge Status Pt. Type Provider Facility Loc./Unit Complaint [id number] 01/26/2018 14:13:00 01/26/2018 23:59:59 CLS Outpatient STEVE LEYVA, REECE [facility] ONC [id number] 01/14/2018 11:24:00 01/14/2018 11:57:00 DIS Emergency TJ FLOWER APRN [facility] ER WOUND CHECK [id number] 01/11/2018 22:08:00 01/12/2018 00:45:00 DIS Emergency NALDO GLEASON MD [facility] ER TOE INJURY [id number] 10/27/2017 09:30:00 10/27/2017 23:59:59 CLS Outpatient ORTIZ HONEYCUTT DO [facility] ENDO SCREENING/HX COLON CANCER [id number] 2017 12:47:00 10/15/2017 00:01:00 DIS Outpatient REECE WILSON MD [facility] ONC [id number] 09/21/2017 12:05:00 09/21/2017 14:24:00 DIS Emergency [facility] [facility] [id number] 01/16/2017 10:19:00 04/16/2017 00:01:00 DIS Outpatient REECE WILSON MD [facility] ONC [id number] 10/28/2016 10:06:00 01/03/2017 00:01:00 DIS Outpatient REECE WILSON MD [facility] ONC [id number] 12/22/2016 12:47:00 12/22/2016 13:42:00 DIS Emergency TJ FLOWER APRN [facility] ER FALL/LEFT ARM LAC [id number] 04/29/2016 08:45:00 07/16/2016 00:01:00 DIS Outpatient REEEC WILSON MD [facility] ONC [id number] 02/21/2016 00:08:00 02/21/2016 23:59:59 CLS Preadmit JOSE ALEJANDRO DONALDSON MD [facility] LAB HTN,HYPERLIPIDEMIA [id number] 02/21/2016 18:00:00 02/21/2016 18:51:00 DIS Emergency TJ FLOWER APRN [facility] ER TOE INJ [id number] 12/26/2015 08:39:00 02/20/2016 00:01:00 DIS Outpatient JOSE ALEJANDRO DONALDSON MD [facility] LAB HTN,HYPERLIPIDEMIA [id number] 11/07/2015 13:12:00 01/27/2016 00:01:00 DIS Outpatient REECE WILSON MD [facility] ONC [id number] 05/28/2015 12:39:00 08/12/2015 00:01:00 DIS Outpatient REECE WILSON MD [facility] ONC [id number] 04/06/2015 11:00:00 04/06/2015 23:59:59 CLS Preadmit OTHER, UNLISTED [facility] CR STENT [id number] 02/26/2015 12:01:00 04/05/2015 00:01:00 DIS Outpatient OTHER, UNLISTED [facility] CR STENT [id number] 01/03/2015 11:43:00 01/03/2015 00:01:00 DIS Outpatient OTHER, UNLISTED [facility] CR STENT [id number] 11/14/2014 12:39:00 01/03/2015 00:01:00 DIS Outpatient REECE WILSON MD [facility] ONC LAB [id number] 09/08/2014 19:35:00 09/20/2014 15:15:00 DIS Inpatient QUYEN RAMIREZ MD [facility] SURGICAL GI BLEED [id number] 09/01/2014 13:25:00 09/03/2014 11:05:00 DIS Inpatient QUYEN RAMIREZ MD [facility] SURGICAL LOWER GI BLEED [id number] 04/18/2014 13:14:00 07/16/2014 00:01:00 DIS Outpatient REECE WILSON MD [facility] ONC LAB [id number] 01/09/2014 12:17:00 01/09/2014 23:59:59 CLS Outpatient SVITLANA SIMMONS MD [facility] RAD REDNESS, NODULES LEFT UPPER INNER THIGH [id number] 10/11/2013 13:19:00 01/01/2014 00:01:00 DIS Outpatient REECE WILSON MD [facility] ONC LAB [id number] 11/25/2013 22:50:00 11/29/2013 17:00:00 DIS Inpatient QUYEN RAMIREZ MD [facility] SURGICAL LOWER GI BLEED [id number] 09/24/2013 07:45:00 09/24/2013 09:53:00 DIS Emergency TROY LEYVA, SVITLANA Salcedo [facility] ER CONFUSION, DIFFICULTY WALKING [id number] 03/22/2013 09:16:00 06/14/2013 00:01:00 DIS Outpatient REECE WILSON MD [facility] ONC LAB [id number] 09/20/2012 09:16:00 12/14/2012 00:01:00 DIS Outpatient REECE WILSON MD [facility] ONC LAB [id number] 10/23/2012 09:06:00 10/23/2012 23:59:59 CLS Outpatient [id number] 09/01/2012 07:54:00 09/01/2012 23:59:59 CLS Outpatient PETER HARDY MD [facility] SDC HX POLYPS [id number] 08/25/2012 07:18:00 08/25/2012 23:59:59 CLS Outpatient PETER HARDY MD [facility] PREOP HX POLYPS [id number] 04/27/2015 18:16:00 Document Registration [id number] 01/19/2012 08:51:00 Document Registration [id number] 09/25/2011 05:51:00 Document Registration [id number] 09/22/2011 07:43:00 Document Registration [id number] 09/16/2011 10:49:00 Document Registration [id number] 01/14/2011 08:50:00 Document Registration [id number] 07/09/2010 09:11:00 Document Registration [id number] 07/08/2010 06:42:00 Document Registration [id number] 01/15/2015 13:25:27 ACT Document Registration [id number] 12/11/2016 23:49:04 12/11/2016 23:59:59 CLS Outpatient
--- NOTE | 2018-02-20 09:28 | ED Lower Extremity ---
General Stated Complaint: FALL,RIGHT FOOT PAIN Source: patient Exam Limitations: no limitations History of Present Illness Date Seen by Provider: Feb 20, 2018 Time Seen by Provider: 09:14 Initial Comments Here with complaint of right foot pain after slipping and falling today. Did not hit his head or injure anything else. States that he twisted his foot. He' s been able to walk on for the last 2 days but states that it swelling and it hurts and is noted that it started black and blue. He is on blood thinners. States that it hurts when he puts his sock on and he is having a hard time bending his foot. Pain is mostly to the lateral aspect. Onset: other (2 days ago) Severity: mild Pain/Injury Location: right leg, right foot, right ankle Method of Injury: fell, twisted Modifying Factors: Improves With Immobilization; Worse With Movement Allergies and Home Medications Allergies Coded Allergies: Ajit Known Allergies (Verified Allergy, Unknown, 01/22/06) Home Medications Amlodipine Besylate 2.5 Mg Tablet, 2.5 MG PO DAILY, (Reported) Ascorbate Calcium/Bioflavonoid 1 Each Tablet, 1 EACH PO BID, (Reported) Aspirin 81 Mg Tablet.dr, 81 MG PO DAILY, (Reported) Atorvastatin Calcium 20 Mg Tablet, 20 MG PO DAILY, (Reported) Calcium Crb&Cit/D3/Min34/Ana 1 Each Tablet, 1 EACH PO BID, (Reported) Carvedilol 6.25 Mg Tablet, 6.25 MG PO BID, (Reported) Docusate Sodium 100 Mg Tablet, 100 MG PO DAILY PRN for CONSTIPATION-1ST LINE, ( Reported) Hydrocodone/Acetaminophen 1 Each Tablet, 0.5-1 EACH PO Q4-6HR PRN for PAIN- MODERATE Prescribed by: NALDO SIFUENTES on 01/12/18 0020 Lisinopril 20 Mg Tablet, 20 MG PO DAILY, (Reported) Multivit-Min/FA/Lycopen/Lutein 1 Each Tablet, 1 EACH PO DAILY, (Reported) Sulfamethoxazole/Trimethoprim 1 Each Tablet, 1 EACH PO BID Prescribed by: NALDO SIFUENTES on 01/12/18 0024 Warfarin Sodium 7.5 Mg Tablet, 7.5 MG PO [id number], (Reported) Warfarin Sodium 5 Mg Tablet, 5 MG PO Sa, (Reported) Patient Home Medication List Home Medication List Reviewed: Yes Review of Systems Constitutional: see HPI; No chills, No fever Respiratory: no symptoms reported Cardiovascular: no symptoms reported Musculoskeletal: see HPI, joint pain, joint swelling, muscle pain Skin: change in color; No lesions Past Kbcmvgg-Qizuia-Knwunt Hx Past Med/Social Hx: Reviewed Nursing Past Med/Soc Hx Patient Social History Alcohol Use: Occasionally Uses Alcohol Beverage of Choice: Hoke Smoking Status: Former Smoker Type Used: Cigarettes Former Smoker, Quit: Oct 10, 2014 2nd Hand Smoke Exposure: No Recent Foreign Travel: No Contact w/Someone Who Travel: No Recent Hopitalizations: No Immunizations Up To Date Tetanus Booster (TDap): Unknown Date of Influenza Vaccine: Jan 04, 2011 Seasonal Allergies Seasonal Allergies: No Past Medical History Surgeries: Yes (PROSTATE, HERNIA REPAIR, Colon resection x2) Abdominal Respiratory: No (SMOKER/CIGARS) Currently Using CPAP: No Currently Using BIPAP: No Cardiac: Yes Hypertension Neurological: No Reproductive Disorders: No Sexually Transmitted Disease: No HIV/AIDS: No Gastrointestinal: Yes (Hernia repair, Colon resection) Gastrointestinal Bleed, Diverticulosis Musculoskeletal: No Endocrine: No Cancer: Yes Prostate, Colon What Type of Treatment Did You: Radiation, Surgical Intervention Psychosocial: Yes Anxiety Integumentary: No Blood Disorders: Yes (hx of SEPSIS, hx of dvt) Family Medical History Reviewed Nursing Family Hx Cancer of mouth 19 FATHER (PT UNSURE OF TYPE OF CANCER FATHER HAD) Diabetes mellitus 19 MOTHER G8 BROTHER Physical Exam Vital Signs Vital Signs - First Documented 02/20/18 09:12 Temp 98.0 Pulse 71 Resp 16 B/P (MAP) 169/89 (115) Pulse Ox 97 O2 Delivery Room Air Capillary Refill : Height, Weight, BMI Height: 5'4.00" Weight: 200lbs. 0.0oz. 90.569476nm; 28.12 BMI Method:Stated General Appearance: WD/WN, no apparent distress Cardiovascular: regular rate, rhythm, no murmur Respiratory: lungs clear, normal breath sounds Ankles: right ankle limited range of motion, right ankle pain, right ankle soft tissue tenderness, right ankle swelling, right ankle other (tenderness noted to the lateral aspect and slightly above the lateral malleolus. Bruising noted throughout the ankle and foot down to the toes.) Feet: right foot ecchymosis (noted throughout the foot from lateral aspect of the ankle to the toes.), right foot soft tissue tenderness (proximal lateral aspect) Neurologic/Psychiatric: alert, oriented x 3 Skin: warm/dry, ecchymosis (as noted above) Progress/Results/Core Measures Results/Orders My Orders Orders - MARYBEL REYNOLDS MD Foot, Right, 3 View (02/20/18 09:20) Ankle, Right, 3 Views (02/20/18 09:20) Vital Signs/I&O 02/20/18 09:12 Temp 98.0 Pulse 71 Resp 16 B/P (MAP) 169/89 (115) Pulse Ox 97 O2 Delivery Room Air Progress Progress Note : Progress Note Seen and evaluated. X-ray right foot and ankle ordered. Monitor patient. 1000 : Distal fibula fracture noted. Walking boot applied. I did discuss with the patient and family about orthopedic follow-up. They have establish care with Dr. LEHMAN. They will call him on Thursday. Pain is otherwise controlled. I will send a copy of the chart to Dr. LEHMAN. Discharged home with return precautions. Patient and family verbalize understanding of instructions and agreement with plan. Diagnostic Imaging Diagonstic Imaging: Xray Plain Films/CT/US/NM/MRI: ankle Comments [facility]IA [facility]. [place], [place] NAME: DOMITILA WRIGHT [facility] REC#: [id number] PT STATUS: REG ER : 1930 PHYSICIAN: MARYBEL REYNOLDS MD ADMIT DATE: 02/20/18/ER Draft Date of Exam:02/20/18 ANKLE, RIGHT, 3 VIEWS EXAMINATION: Right ankle, 3 views. COMPARISON: None. HISTORY: 87-year-old male, fall. Right ankle and foot pain. FINDINGS: There is an oblique mildly displaced distal fibular diaphyseal fracture extending upwards from the level of the tibial plafond. There is no identified large tibiotalar joint effusion. The alignment of the ankle mortise is unremarkable. There is soft tissue swelling adjacent to the lateral malleolus. There is no additional identified fracture. There are vascular calcifications. IMPRESSION: 1. Oblique mildly displaced distal fibular fracture extending upwards from the level of the tibial plafond. 2. No identified abnormal alignment of the ankle mortise. 3. No additional identified fracture. Dictated on workstation # [id number] Dict: 02/20/18950 Trans: 02/20/1855 [facility] [id number] Interpreted by: JAMARCUS KERR MD Electronically signed by: [facility]o Imaging: Xray Plain Films/CT/US/NM/MRI: other Comments NAME: DOMITILA WRIGHT [facility] REC#: [id number] PT STATUS: REG ER : 1930 PHYSICIAN: MARYBEL REYNOLDS MD ADMIT DATE: 02/20/18/ER Draft Date of Exam:02/20/18 FOOT, RIGHT, 3 VIEW INDICATION: Fall, right foot pain. COMPARISON: None. FINDINGS: 3 views of right foot demonstrate advanced degenerative changes of the first metatarsophalangeal joint. There is no acute fracture or dislocation. No bony erosion identified. There is no radiopaque foreign body. IMPRESSION: No acute fracture or dislocation. Dictated on workstation # [id number] Dict: 02/20/1851 Trans: 02/20/1858 [id number] Interpreted by: MARCI PEREZ Electronically signed by: Departure Impression Primary Impression: Fracture of right fibula Qualified Codes: S82.831A - Other fracture of upper and lower end of right fibula, initial encounter for closed fracture Disposition: HOME, SELF-CARE Condition: Stable Departure-Patient Inst. Decision time for Depature: 10:03 Referrals: JOSE ALEJANDRO DONALDSON MD (PCP/Family) Primary Care Physician NEREYDA LEHMAN MD Patient Instructions: Ankle Fracture (DC) Add. Discharge Instructions: Use walking boot at all times while moving around. You may take it off if you' re not walking. Call Dr. Lehman's office on Thursday for appointment for recheck and further evaluation. You may use walker or cane as needed to assist with balance. You may take Tylenol/acetaminophen 1000 mg every 8 hours as needed for pain. Use ice packs 20 minutes per hour as needed for swelling to area of concern. Elevate leg to reduce swelling. Return for worse pain, swelling, weakness, numbness or other concerns as needed. Copy Copies To 1: IPSEN,MARYBEL PHILIP MD, MD Feb 20, 2018 09:28
--- NOTE | 2018-02-20 09:56 | Diagnostic Imaging Report ---
EXAMINATION: Right ankle, 3 views. COMPARISON: None. HISTORY: 87-year-old male, fall. Right ankle and foot pain. FINDINGS: There is an oblique mildly displaced distal fibular diaphyseal fracture extending upwards from the level of the tibial plafond. There is no identified large tibiotalar joint effusion. The alignment of the ankle mortise is unremarkable. There is soft tissue swelling adjacent to the lateral malleolus. There is no additional identified fracture. There are vascular calcifications. IMPRESSION: 1. Oblique mildly displaced distal fibular fracture extending upwards from the level of the tibial plafond. 2. No identified abnormal alignment of the ankle mortise. 3. No additional identified fracture. Dictated by: Dictated on workstation # [id number]
--- NOTE | 2018-02-20 09:58 | Diagnostic Imaging Report ---
INDICATION: Fall, right foot pain. COMPARISON: None. FINDINGS: 3 views of right foot demonstrate advanced degenerative changes of the first metatarsophalangeal joint. There is no acute fracture or dislocation. No bony erosion identified. There is no radiopaque foreign body. IMPRESSION: No acute fracture or dislocation. Dictated by: Dictated on workstation # [id number]
[2018-02-20 10:10] VITALS: BP 169/89
== END 2018-02-20 10:10 | disposition home or self-care (01) ==
LOC: EDUNIT# 09:03 → ER 09:06
DX: S82.831A Other fracture of upper and lower end of right fibula, initial encounter for closed fracture (principal); I10 Essential (primary) hypertension; F41.9 Anxiety disorder, unspecified; Z85.038 Personal history of other malignant neoplasm of large intestine; Z85.46 Personal history of malignant neoplasm of prostate; Z80.0 Family history of malignant neoplasm of digestive organs; Z87.19 Personal history of other diseases of the digestive system; Z79.82 Long term (current) use of aspirin; Z79.01 Long term (current) use of anticoagulants; Z87.891 Personal history of nicotine dependence; Z98.890 Other specified postprocedural states; Z90.49 Acquired absence of other specified parts of digestive tract; W01.0XXA Fall on same level from slipping, tripping and stumbling without subsequent striking against object, initial encounter; X50.1XXA Overexertion from prolonged static or awkward postures, initial encounter
CPT/HCPCS: 73610; 73630

== ENCOUNTER 2018-07-09 11:01 | Emergency (ER) | payer MEDICARE ==
[~2018-07-09] VITALS: Ht 162.6 cm; Wt 90.7 kg
[~2018-07-09 11:01] MED LIST changes: -AMLO2.5T3 PO; +AMLO2.5T4 PO
--- OUTSIDE RECORDS SUMMARY | 2018-07-09 11:07 | XMS REPORT | Clinical Summary ---
Author Author [facility] Organization [facility] Address Unknown Phone Unavailable Care Team Providers Care Classroom Coordinator Name Role Phone Maldonado Melo PA-C Unavailable Joo Harris MD Unavailable Pamela Gallardo MD PCP Adriana Amin MD 3 Darrell Gorman MD 3 Source Comments Some departments are not documenting in the electronic medical record. If you do not see the information that you expected, contact Release of Information in the Health Information Management department at [phone] for further assistance in locating additional records.[facility] Allergies No Known Allergies Medications End Date Status Medication Sig Dispensed Refills Start Date Active vitamins, multiple cap Take 1 Cap by 0 mouth daily. Centrum Silver for Men Active lisinopril (PRINIVIL; Take 20 mg by 0 ZESTRIL) 20 mg tablet mouth daily. Active aspirin 81 mg chewable Take 1 Tab by 90 Tab 3 tablet mouth daily. 5 Active warfarin (COUMADIN) 7.5 Take 7.5 mg 0 mg tablet by mouth as directed. Take 7.5 mg on Thursday, Thursday, Thursday, , Thursday, Thursday; take 5 mg by mouth on Saturdays Active VIT Take 2 Caps 0 C/E/ZN/COPPR/LUTEIN/ZEAXA by mouth N (PRESERVISION AREDS 2 daily. PO) Active leuprolide 3 month Inject 11.25 0 (LUPRON DEPOT) 11.25 mg into the mg/1.5 mL injection muscle every 90 days. Active docusate (COLACE) 100 mg Take 100 mg 0 capsule by mouth as Needed for Constipation. Active LOPERAMIDE HCL (IMODIUM Take 1 tablet 0 PO) by mouth as Needed. Active FERROUS SULFATE (IRON PO) Take 1 tablet 0 by mouth as Needed. Active pseudoephedrine (SUDAFED) Take 60 mg by 0 30 mg tablet mouth every 4 hours as needed for Congestion. Active carboxymethyl/glycerin/po Place into 0 ly80 (REFRESH OPTIVE or around ADVANCED OP) eye(s) as Needed. Active atorvastatin (LIPITOR) 20 TAKE 1 TABLET 90 tablet 0 mg tablet BY MOUTH ONCE 8 DAILY Active prednisone (DELTASONE) 5 Take one 60 tablet 3 201 mg tabletIndications: tablet by 9 Prostate cancer mouth twice metastatic to bone (HCC) daily with meals. Active abiraterone (ZYTIGA) 500 Take 2 60 tablet 3 mg tabletIndications: tablets 9 Prostate cancer (1,000 mg by metastatic to bone (HCC) mouth daily. Take on an empty stomach, at least 1 hour before or 2 hours after food. Active carvedilol (COREG) 6.25 TAKE 1 TABLET 180 tablet 1 201 mg tablet BY MOUTH 9 TWICE DAILY WITH MEALS Active ascorbate Twice A Day 0 calcium-bioflavonoid 1,000-200 mg tab Active Calcium Carbonate-Vit Take by 0 D3-Min 600 mg calcium- mouth. 3 400 unit tab Active amLODIPine (NORVASC) 2.5 TAKE 1 TABLET 90 tablet 3 201 mg tablet BY MOUTH ONCE 9 DAILY 06/18/2018 Discontinued warfarin (COUMADIN) 5 mg Take 5 mg by 0 tablet mouth every Thursday. 06/12/2018 Discontinued carvedilol (COREG) 6.25 TAKE 1 TABLET 180 tablet 1 mg tablet BY MOUTH 8 TWICE DAILY WITH MEALS 07/03/2018 Discontinued amLODIPine (NORVASC) 2.5 TAKE ONE 90 tablet 1 12/29/201 mg tablet TABLET BY 8 MOUTH ONCE DAILY 06/18/2018 Discontinued other medication Take 1 Dose 0 by mouth daily. Medication Name & Strength: Oriana-C Dose(how many): 1000mg (2) Frequency(how often): daukt 06/18/2018 Discontinued other medication Take 1 Dose 0 by mouth daily. Medication Name & Strength: Citracal+D Dose(how many): 630mg Frequency(how often): daily 06/28/2018 Discontinued calcium phosphate Citracal + D3 0 trib/vit D3 (CALCIUM (calcium PHOSPHATE-VITAMIN D3 PO) phosphate) oral Active Problems Problem Noted Date Essential hypertension 06/18/2018 Other hyperlipidemia 06/18/2018 Osteopenia of lumbar spine 05/17/2018 Candidal dermatitis 06/04/2016 Last Assessment & Plan: [...] Nov 2018. 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 Harris pT3b N0 Mx, [place] 4+3=7 w/ Tertiary 5, (+)margins. Biochemical recurrence s/p Salvage XRT, completed May 2007. Post-Salvage XRT PSA; initially undetectable, but started to increase in 2012. Bone scan (09/27/2015): Scattered osseous metastatic disease. Initiate ADT, first Lupron injection 10/15/2015. L ast Assessment & Plan: I had the pleasure of visiting with Mr. Brown. Based on his current PSA and presentation he has metastatic castration resistant prostate cancer with a recent skeletal related event secondary to his severe osteopenia. I recommended: 1. Continue Calcium and Vitamin D 2. Medical oncology consultation to discuss the role of advance ADT for his mCRPC and in particular bone anti-resorptive treatment given his recent fracture. I explained that my role, as a surgeon, would be to address surgical related issues, but that his prostate cancer treatment needs to be performed under the auspices of a medical oncologist given his progression to castrate resistant disease. Plan: 1. Referral to medical oncology - Dr. Adams 2. Follow-up to be determined based on evaluation and treatment recommendations by Dr. Adams Non-ST elevated myocardial infarction 10/26/2014 Coronary artery disease 10/26/2014 Overview: 1. 09/20/14 Echo: EF 60%. Mild concentric LVH. Mild left atrial dilation. No significant valvular abnormalities. Mildly dilated sinuses of Valsalva. 2. 10/02/14 Regadenoson Thallium: EF 57%. Large intense mid to distal anteroapical and inferoapical perfusion abnormality which is mostly reversible, implying high grade proximal to mid LAD disease. 3. 10/04/14 Cath: Multivessel coronary artery disease with greater than 90% heavily calcified stenosis in the mid LAD. Moderate disease in the mid circumflex with a calcific 40% to 50% stenosis. Moderate to severe disease in a large RCA with mid RCA having 60-70% focal stenosis and a PLV branch having 70% stenosis. 4. 10/05/14 PCI/Stent Successful orbital atherectomy and stenting with DEVORA (Promus 2.75 X 20 mm stent) in mid LAD, which was post dilated to a 3.25 size at 20 atmospheres. Dual antiplatelet therapy continued at least 1 year unless contraindicated by bleeding. 5. 03/10/16 Echo: EF 50-55% with mild abnormal septal motion and mid to distal anteroseptal-apical hypokinesis. Mild concentric LVH. Mild LA dilatation. Mild AV sclerosis. Mild mitral annular calcification. Mild aortic root dilatation. PAP=22 MmHg. 6. 03/18/17 Echo: EF 65%. Trace MV and TV regurgitation. Sinuses of Valsalva are mildly dilated. PAP=28 mmHg Diverticulitis 09/20/2014 Prostate cancer 07/14/2006 Overview: Non-Nerve Sparing RRP -- 09/03/2006; [...] he wishes to proceed w/ cysto. Encounters Care Team Description Date Type Specialty Francisco Javier Lee MD Medication Refill (amlodipine) 07/03/2018 Refill Cardiology Adriana Amin MD 06/29/2018 Documentation Oncology Cher Cee RN Results (Nuc results discussed wit patient) 06/29/2018 Telephone Cardiology Adriana Amin MD Prostate cancer metastatic to bone (HCC) ( Primary Dx); Hot flash due to medication 06/28/2018 Office Visit Oncology Adriana Amin MD 06/28/2018 Hospital Lab Encounter Francisco Javier Lee MD 06/28/2018 Hospital Cardiology Encounter Melania Rodríguez RN Lab Results (FLP) 06/28/2018 Telephone Cardiology Nanci Lopez Stress Test Instructions (Thall Prep reviewed w/ pt. RX Meds ok in AM. Hold diuretics & OTC Meds. Advised to get labs prior (Cher) to Nuclear Stress, Understanding expressed) 06/24/2018 Telephone Cardiology Sofie Perkins RN Lab Results (FLP, ALT, AST) 06/23/2018 Documentation Cardiology Sofie Perkins RN Other hyperlipidemia 06/23/2018 Orders Only Cardiology Francisco Javier Lee MD Cardiac Eval 06/18/2018 Office Visit Cardiology Darrell Velez MD Medication Refill 06/12/2018 Refill Cardiology Adriana Amin MD 05/18/2018 Orders Only Oncology Adriana Amin MD 05/17/2018 Hospital Oncology Encounter Adriana Amin MD Prostate cancer (HCC) (Primary Dx); Osteopenia of lumbar spine; Secondary malignant neoplasm of bone (HCC); Diarrhea due to drug 05/17/2018 Office Visit Oncology Adriana Amin MD Hypogonadism, male (Primary Dx); Prostate cancer metastatic to bone (HCC); Prostate cancer (HCC) 05/17/2018 Lab Only Oncology Adriana Amin MD 05/17/2018 Hospital Radiology Encounter Shiloh Alcazar PHARMD Chemotherapy Follow up 05/05/2018 Telephone Oncology Raymundo Brady PHARMD Chemotherapy Follow up 04/28/2018 Telephone Oncology Adriana Amin MD Medication Follow-up 04/20/2018 Telephone Oncology Leonila Shepard 04/14/2018 Documentation Leonila Shepard 04/13/2018 Documentation Raymundo Brady PHARMD Chemotherapy Follow up 04/12/2018 Telephone Oncology Raymundo Brady PHARMD Chemotherapy 04/12/2018 Documentation Oncology from Last 3 Months Family History Medical History Relation Name Comments Diabetes Brother Cancer Father Diabetes Mother Diabetes Sister Relation Name Status Comments Brother Father Mother Sister Social History Date Tobacco Use Types Packs/Day Years Used Quit: 09/04/2014 Former Smoker Cigars, Cigarettes Smokeless Tobacco: Never Used Comments: 2-5 cigars/ day. Alcohol Use Drinks/Week oz/Week Comments Yes 0.0 Sex Assigned at Date Recorded Not on file Industry Job Start Date Occupation Not on file Not on file Not on file Travel End Travel History Travel Start No recent travel history available. Last Filed Vital Signs Time Taken Vital Sign Reading 06/28/2018 11:03 AM CDT Blood Pressure 133/84 06/28/2018 11:03 AM CDT Pulse 93 06/28/2018 11:03 AM CDT Temperature 36.6 C (97.8 F) 06/28/2018 11:03 AM CDT Respiratory Rate 16 06/28/2018 11:03 AM CDT Oxygen Saturation 98% - Inhaled Oxygen - Concentration 06/28/2018 11:03 AM CDT Weight 92.8 kg (204 lb 9.6 oz) 06/28/2018 11:03 AM CDT Height 167.6 cm (5' 5.98") 06/28/2018 11:03 AM CDT Body Mass Index 33.04 Plan of Treatment Health Maintenance Due Date Last Done Comments PHYSICAL (COMPREHENSIVE) 08/18/1937 EXAM DTAP/TDAP VACCINES (1 - 08/18/1949 Tdap) SHINGLES RECOMBINANT 08/18/1981 VACCINE (1 of 2) PNEUMONIA (PCV13/PPSV23) 08/18/1996 VACCINES (1 of 2 - PCV13) INFLUENZA VACCINE 11/04/2018 01/04/2018, 01/18/2010 Procedures Comments Procedure Name Priority Date/Time Associated Diagnosis PROSTATIC SPECIFIC Routine 06/28/2018 Prostate cancer (HCC) ANTIGEN-PSA 10:31 AM CDT COMPREHENSIVE METABOLIC Routine 06/28/2018 Prostate cancer (HCC) PANEL 10:31 AM CDT MULTI GATED Routine 06/28/2018 Coronary artery disease 10:12 AM CDT involving sitka coronary artery of sitka heart without angina pectoris Essential hypertension ALT (SGPT) Routine 06/21/2018 Other hyperlipidemia AST (SGOT) Routine 06/21/2018 Other hyperlipidemia LIPID PROFILE Routine 06/21/2018 Other hyperlipidemia CBC AND DIFF Routine 05/17/2018 Prostate cancer (HCC) 10:53 AM CLINICAL RN TESTOSTERONE,TOTAL Routine 05/17/2018 Hypogonadism, male 10:53 AM CLINICAL RN Prostate cancer metastatic to bone (HCC) Prostate cancer (HCC) COMPREHENSIVE METABOLIC Routine 05/17/2018 Hypogonadism, male PANEL 10:53 AM CLINICAL RN Prostate cancer metastatic to bone (HCC) Prostate cancer (HCC) PROSTATIC SPECIFIC Routine 05/17/2018 Hypogonadism, male ANTIGEN-PSA 10:53 AM CLINICAL RN Prostate cancer metastatic to bone (HCC) Prostate cancer (HCC) BONE DENSITY SPINE/HIP Routine 05/17/2018 Prostate cancer 10:46 AM CLINICAL RN metastatic to bone (HCC) Osteopenia of multiple sites from Last 3 Months Results * PROSTATIC SPECIFIC ANTIGEN-PSA (06/28/2018 10:31 AM CDT) Only the most recent of 2 results within the time period is included. Prostatic 0.54 <6.01 NG/ML [facility] MAIN [facility] Specific Comment: Antigen REFERENCE RANGES AGEPSA VALUE <50<=1.5 50-54 <=2.0 55-59 <=3.0 60-69 <=4.0 70+<=6.0 Specimen Blood Performing Organization Address City/State/Zipcode Phone Number MAIN LAB [address] [place] [address] * COMPREHENSIVE METABOLIC PANEL (06/28/2018 10:31 AM CDT) Only the most recent of 2 results within the time period is included. Sodium 137 137 - 147 MMOL/L [facility] Potassium 3.9 3.5 - 5.1 MMOL/L [facility] Chloride 104 98 - 110 MMOL/L [facility] Glucose 116 (H) 70 - 100 MG/DL [facility] Blood Urea 24 7 - 25 MG/DL [facility] Nitrogen Creatinine 1.14 0.4 - 1.24 MG/DL [facility] Calcium 10.8 (H) 8.5 - 10.6 MG/DL [facility] Total Protein 7.3 6.0 - 8.0 G/DL [facility] Total Bilirubin 0.9 0.3 - 1.2 MG/DL [facility] Albumin 4.2 3.5 - 5.0 G/DL [facility] Alk Phosphatase 55 25 - 110 U/L [facility] AST (SGOT) 15 7 - 40 U/L [facility] CO2 29 21 - 30 MMOL/L [facility] ALT (SGPT) 15 7 - 56 U/L [facility] Anion Gap 4 3 - 12 [facility] eGFR Non >60 >60 mL/min [facility] Comment: [place] The eGFR is not validated for use in drug dosing adjustments.Continue to use estimated creatinine clearance per dosing reference text.Please contact the Clinical Pharmacist for questions. eGFR >60 >60 mL/min [facility] [place]ian Comment: The eGFR is not validated for use in drug dosing adjustments.Continue to use estimated creatinine clearance per dosing reference text.Please contact the Clinical Pharmacist for questions. Specimen Blood Performing Organization Address City/State/Zipcode Phone Number [facility] [address] [place] [address] * REGADENOSON MPI STRESS TEST (06/28/2018 10:12 AM CDT) Baseline HR 74 bpm OTHER OUTSIDE LAB Baseline BP - 114 mmHg OTHER OUTSIDE Sys LAB Peak HR 90 bpm OTHER OUTSIDE LAB Peak BP - Sys 129 mmHg OTHER OUTSIDE LAB Referring Pamela Gallardo MD OTHER OUTSIDE Provider LAB Stress Dose 2.36 mCi OTHER OUTSIDE LAB CV NUCLEAR BMI 34.7 kg/m2 OTHER OUTSIDE LAB Baseline BP - 80 mmHg OTHER OUTSIDE Abel LAB Peak BP - Abel 64 OTHER OUTSIDE LAB Study Number [id number] OTHER OUTSIDE LAB PUL TO MARRY 0.29 OTHER OUTSIDE COUNT RATIO LAB Rest Dose 0.52 mCi OTHER OUTSIDE LAB MPI EF 50 % OTHER OUTSIDE LAB TID Ratio 1.11 OTHER OUTSIDE LAB Summed Stress 0 OTHER OUTSIDE Score LAB Summed Rest 0 OTHER OUTSIDE Score LAB LV volume 50 mL OTHER OUTSIDE LAB Nuclear In aggregate the current study OTHER OUTSIDE Cardiology is low risk in regards to LAB Mortality Risk predicted annual cardiovascular mortality rate. Narrative Performed At OTHER OUTSIDE LAB Nuclear Report [facility] Division of Nuclear Cardiac Imaging Consultation Report EXAMINATION:D-SPECT Gated [id number] Chloride myocardial perfusion single-photon emission computed tomography for viability, resting regional wall function, resting ejection fraction, and perfusion imaging utilizing Regadenoson pharmacological stress. Date of Study:06/28/18 Study #:[id number] [facility] Billing ID:[id number] Referring Physician:Pamela Gallardo MD Requested by:Francisco Javier Lee MD BMI: 34.7 kg/m2 INDICATIONS FOR STUDY (HISTORY):This is a 87 year old male with a history of Hypertension, Hypercholesterolemia and Coronary artery disease status- post percutaneous intervention.This study is being done to rule out significant myocardial ischemia. PROCEDURAL DETAILS:Initially, the patient received a 5 ml intravenous infusion of Regadenoson at 0.08 mg/ml over 10 to 15 seconds. Approximately 20 seconds later 2.36 mCi of [id number] was injected intravenously. Throughout the infusion continuous electrocardiographic monitoring and serial electrocardiograms were obtained, as well as intermittent blood pressure recordings.Gated upright D-SPECT tomographic images were then acquired approximately 5 minutes after discontinuation of the regadenoson infusion. When indicated supine D-SPECT images were also obtained.The patient returned in approximately 4 hours and received an additional intravenous injection of 0.52 mCi of [id number] Chloride as a reinjected dose to assist in the detection of myocardial ischemia and viability.Images were then reacquired and compared to post stress images. FINDINGS: Pharmacological Stress Electrocardiogram:The patient's resting heart rate was 74 bpm and the resting blood pressure was 114/80.The patient s peak stress heart rate was 90 bpm and the peak stress blood pressure was 129/64. The patient experienced shortness of breath and flushing. The resting ECG shows Sinus rhythm with T wave inversion in lead aVR and V1.Following Regadenoson infusion there are no new diagnostic ECG changes and there is no significant ectopy. Conclusion:Pharmacologic stress ECG is negative for ischemia. Tzfxmiwxf-yr-Kfhbkapuxe Count Ratio:0.29(normal=or < 0.52). Scintigraphic Findings:Raw images reveal the left ventricular cavity is normal in size.There is normal pulmonary tracer uptake.There is a mild degree of diaphragmatic attenuation present.No transient ischemic dilation is present. Tomographic images were reconstructed in three orthogonal views.There is scattered inhomogeneity noted in the inferior wall in all 3 image acquisitions.There are no definite perfusion defects in all 3 image acquisitions were carefully compared and analyzed.All myocardial segments appear viable. Polar coordinate map identifies no perfusion abnormalities. TID Ratio:1.11(normal <1.36). Summed Stress Score:0 , Summed Rest Score:0 Regional Wall Thickening and Motion Post Stress: There is normal left ventricular wall motion and thickening of all myocardial segments. Left Ventricular Ejection Fraction=50 %. Left Ventricular End Diastolic Volume: 50 mL SUMMARY/OPINION:This study is probably normal with no evidence of significant myocardial ischemia. Left ventricular systolic function is borderline normal. There are no high risk prognostic indicators present. The ECG portion of the study is negative for ischemia. Comparison is made with a prior [facility] study completed 10/02/2014.Ejection fraction was 57 %.There was a large, mostly reversible, mid to distal anteroapical and inferoapical perfusion abnormality.The mentioned perfusion abnormality is not present in the current study. I personally reviewed this myocardial perfusion study and jointly formulated the interpretation and opinion as outlined by the piggery worker, Dr. Carlos Hampton In aggregate the current study is low risk in regards to predicted annual cardiovascular mortality rate. Performing Organization Address City/[facility] [[email or web address] Phone Number OTHER OUTSIDE LAB * ALT (SGPT) (06/21/2018) ALT (SGPT) 18 MAIN LAB Specimen Blood - Blood Performing Organization Address [facility] [[email or web address] Phone Number MAIN LAB [address] [phone] * AST (SGOT) (06/21/2018) AST (SGOT) 14 MAIN LAB Specimen Blood - Blood Performing Organization Address [facility] Phone Number [facility] [address] [place] [address] * LIPID PROFILE (06/21/2018) [facility] Cholesterol 121 [facility] MAIN [facility] Triglycerides 76 [facility] MAIN [facility] HDL 57 [facility] MA[facility] LDL 49 [facility] MAIN [facility] VLDL [facility] MAIN LAB Non HDL [facility] MAIN LAB Cholesterol Cholesterol/HDL 2.1 [facility] MAIN LAB Ratio Specimen Blood - Blood Narrative Performed At MAIN LAB Pt on Lipitor 20 mg daily Performing Organization Address [facility] [[email or web address] Phone Number MAIN LAB [address] [place] [address] * CBC AND DIFF (05/17/2018 10:53 AM CLINICAL RN) White Blood 8.0 4.5 - 11.0 K/UL [facility] Cells RBC 3.92 (L) 4.4 - 5.5 M/UL [facility] Hemoglobin 12.9 (L) 13.5 - 16.5 GM/DL [facility] Hematocrit 36.9 (L) 40 - 50 % [facility] MCV 94.1 80 - 100 FL [facility] MCH 32.9 26 - 34 PG [facility] MCHC 34.9 32.0 - 36.0 G/DL [facility] RDW 14.4 11 - 15 % [facility] Platelet Count 259 150 - 400 K/UL [facility] MPV 7.7 7 - 11 FL [facility] Neutrophils 69 41 - 77 % [facility] Lymphocytes 18 (L) 24 - 44 % [facility] Monocytes 10 4 - 12 % [facility] Eosinophils 2 0 - 5 % [facility] Basophils 1 0 - 2 % [facility] Absolute 5.60 1.8 - 7.0 K/UL [facility] Neutrophil Count Absolute Lymph 1.40 1.0 - 4.8 K/UL [facility] Count Absolute 0.80 0 - 0.80 K/UL [facility] Monocyte Count Absolute 0.20 0 - 0.45 K/UL [facility] Eosinophil Count Absolute 0.00 0 - 0.20 K/UL [facility] Basophil Count Specimen Blood Performing Organization Address City/State/Zipcode Phone Number [facility] [address] [place] [address] * TESTOSTERONE,TOTAL (05/17/2018 10:53 AM CLINICAL RN) Testosterone,To <10 (L) 270 - 1070 NG/DL [facility] MAIN LAB ulises Specimen Blood Performing Organization Address City/[facility]/Zipcode Phone Number MAIN LAB [address] [place] [address] * BONE DENSITY SPINE/HIP (05/17/2018 10:46 AM CLINICAL RN) Impressions Performed At Statistically stable bone mineral density of lumbar spine and both hips. [facility] RAD RESULTS Persistent low bone mass (osteopenia). General comments regarding interpretation of bone mineral density measurements : a) Consider FDA-approved medical therapies in the setting of 1) Hip or vertebral fracture, 2) Osteoporosis, and 3) low bone mass, referred to as osteopenia, with FRAX score of greater than or equal to 3% for hip fracture or greater than or equal to 20% for major osteoporotic fracture. Treatment may also be indicated based on clinical judgement and/or patient preference. b) Interval between BMD testing should be determined according to each patient 's clinical status: typically one year after initiation or change of therapy is appropriate, with longer intervals once therapeutic effect is established. In conditions with rapid bone loss, such as glucocorticoid therapy, testing more frequently is appropriate. Finalized by Tim Cyr M.D. on 05/17/2018 1:01 PM. Dictated by Tim Cyr M.D. on 05/17/2018 12:59 PM. Narrative Performed At BONE DENSITOMETRY [facility] RESULTS CLINICAL INDICATION:87 years old Male, prostate cancer metastatic to bone. Osteopenia of multiple sites. COMPARISON: 11/18/2016 FINDINGS: DEXA scan of the lumbar spine and bilateral hips were performed with [employer]. FRAX score was calculated from patient reported risk factors and femoral neck bone density. LUMBAR SPINE, L1-L4 Current: 1.148 g/cm2, T-score of -0.7 Previous: 1.155 g/cm2, T-score of -0.7 There are however hypertrophic degenerative changes of the lumbar spine which could artificially elevate the bone mineral density. LEFT FEMORAL NECK Current: 0.838 g/cm2, T-score of -1.8 Previous: 0.861 g/cm2, T-score of -1.6 LEFT TOTAL HIP Current: 0.929 g/cm2, T-score of -1.2 Previous: 0.945 g/cm2, T-score of -1.1 RIGHT FEMORAL NECK Current: 0.825 g/cm2, T-score of -1.9 Previous:0.859 g/cm2, T-score of -1.6 RIGHT TOTAL HIP Current: 0.864 g/cm2, T-score of -1.6 Previous: 0.904 g/cm2, T-score of -1.4 FRAX SCORE 10 year risk hip fracture=2.8% 10 year risk major osteoporotic fracture=6.9% WHO Criteria for Diagnosis of Osteoporosis (T-score)* Normal (-1.0 and above) Low bone mass, referred to as osteopenia (Between -1.0 and -2.5) Osteoporosis (-2.5 and below) *Based on region with lowest bone mineral density. Procedure Note Interface, Radiant Results - 05/17/2018 1:05 PM CLINICAL RN BONE DENSITOMETRY CLINICAL INDICATION: 87 years old Male, prostate cancer metastatic to bone. Osteopenia of multiple sites. COMPARISON: 11/18/2016 FINDINGS: DEXA scan of the lumbar spine and bilateral hips were performed with [employer]. FRAX score was calculated from patient reported risk factors and femoral neck bone density. LUMBAR SPINE, L1-L4 Current: 1.148 g/cm2, T-score of -0.7 Previous: 1.155 g/cm2, T-score of -0.7 There are however hypertrophic degenerative changes of the lumbar spine which could artificially elevate the bone mineral density. LEFT FEMORAL NECK Current: 0.838 g/cm2, T-score of -1.8 Previous: 0.861 g/cm2, T-score of -1.6 LEFT TOTAL HIP Current: 0.929 g/cm2, T-score of -1.2 Previous: 0.945 g/cm2, T-score of -1.1 RIGHT FEMORAL NECK Current: 0.825 g/cm2, T-score of -1.9 Previous: 0.859 g/cm2, T-score of -1.6 RIGHT TOTAL HIP Current: 0.864 g/cm2, T-score of -1.6 Previous: 0.904 g/cm2, T-score of -1.4 FRAX SCORE 10 year risk hip fracture=2.8% 10 year risk major osteoporotic fracture=6.9% WHO Criteria for Diagnosis of Osteoporosis (T-score)* Normal (-1.0 and above) Low bone mass, referred to as osteopenia (Between -1.0 and -2.5) Osteoporosis (-2.5 and below) *Based on region with lowest bone mineral density. IMPRESSION Statistically stable bone mineral density of lumbar spine and both hips. Persistent low bone mass (osteopenia). General comments regarding interpretation of bone mineral density measurements: a) Consider FDA-approved medical therapies in the setting of 1) Hip or vertebral fracture, 2) Osteoporosis, and 3) low bone mass, referred to as osteopenia, with FRAX score of greater than or equal to 3% for hip fracture or greater than or equal to 20% for major osteoporotic fracture. Treatment may also be indicated based on clinical judgement and/or patient preference. b) Interval between BMD testing should be determined according to each patient' s clinical status: typically one year after initiation or change of therapy is appropriate, with longer intervals once therapeutic effect is established. In conditions with rapid bone loss, such as glucocorticoid therapy, testing more frequently is appropriate. Finalized by Tim Cyr M.D. on 05/17/2018 1:01 PM. Dictated by Tim Cyr M.D. on 05/17/2018 12:59 PM. Performing Organization Address City/State/Zipcode Phone Number [facility] RAD RESULTS from Last 3 Months Insurance Type Payer Benefit Subscriber ID Effective Phone Address Plan / Dates Group Medicare MEDICARE MEDICARE xxxxxxxxxxx 1996-P PART A AND resent B Medicare BCBS JESSE BCBS xxxxxxxxxxxx 1985-P SUPPLEMENT resent Dr lee ([place]) [place] [address] Advance Directives Patient has advance care planning documents, and code status on file. For more information, please contact: [facility] [address] [place] [address] Date Inactivated Comments Code Status Date Activated 10/07/2014 8:25 PM Full Code 09/20/2014 5:48 PM Provider has discussed Code Status Yes w/Patient or Family?
--- OUTSIDE RECORDS SUMMARY | 2018-07-09 11:08 | XMS REPORT | Encounter Summary ---
Author Author [facility] Organization [facility] Address Unknown Phone Unavailable Care Team Providers Care Seat Cover Cutter Name Role Phone Maldonado Melo PA-C Unavailable Joo Harris MD Unavailable Pamela Gallardo MD PCP Adriana Amin MD 3 Darrell Gorman MD 3 Reason for Referral * Consult, Test & Treat (Routine) Referred By Contact Referred To Contact Status Reason Specialty Diagnoses / Procedures Francisco Javier Lee MD [address] [place] [address] [facility] [address] [place] [address] No Auth Needed Cardiology Diagnoses Coronary artery disease involving jackson coronary artery of jackson heart without angina pectoris Essential hypertension P rocedures REGADENOSON MPI STRESS TEST CHG MYOCARDIAL SPECT MULTIPLE STUDIES * Consult, Test & Treat (Routine) Referred By Contact Referred To Contact Status Reason Specialty Diagnoses / Procedures Francisco Javier Lee MD [address] [place] [address] [facility] [address] [place], [place] [id number] No Auth Needed Cardiology Diagnoses Coronary artery disease involving jackson coronary artery of jackson heart without angina pectoris Essential hypertension P rocedures REGADENOSON MPI STRESS TEST CHG MYOCARDIAL SPECT MULTIPLE STUDIES Reason for Visit * Consult, Test & Treat (Routine) Referred By Contact Referred To Contact Status Reason Specialty Diagnoses / Procedures Francisco Javier Lee MD [address] [address] [facility] [address] [address] No Auth Needed Cardiology Diagnoses Coronary artery disease involving jackson coronary artery of jackson heart without angina pectoris Essential hypertension P rocedures REGADENOSON MPI STRESS TEST CHG MYOCARDIAL SPECT MULTIPLE STUDIES Encounter Details Care Team Description Date Type Department Francisco Javier Lee MD [address] [address] [phone] 06/28/2018 [facility] [address] [address] Social History Date Tobacco Use Types Packs/Day Years Used Quit: 09/04/2014 Former Smoker Cigars, Cigarettes Smokeless Tobacco: Never Used Comments: 2-5 cigars/ day. Alcohol Use Drinks/Week oz/Week Comments Yes 0.0 Sex Assigned at Date Recorded Not on file Industry Job Start Date Occupation Not on file Not on file Not on file Travel End Travel History Travel Start No recent travel history available. documented as of this encounter Medications at Time of Discharge Start Date End Date Medication Sig Dispensed Refills 04/09/2018 abiraterone (ZYTIGA) 500 Take 2 60 tablet 3 mg tabletIndications: tablets Prostate cancer (1,000 mg by metastatic to bone (HCC) mouth daily. Take on an empty stomach, at least 1 hour before or 2 hours after food. ascorbate Twice A Day 0 calcium-bioflavonoid 1,000-200 mg tab 10/07/2014 aspirin 81 mg chewable Take 1 Tab by 90 Tab 3 tablet mouth daily. 03/15/2018 atorvastatin (LIPITOR) 20 TAKE 1 TABLET 90 tablet 0 mg tablet BY MOUTH ONCE DAILY 08/27/2012 Calcium Carbonate-Vit Take by 0 D3-Min 600 mg calcium- mouth. 400 unit tab carboxymethyl/glycerin/po Place into 0 ly80 (REFRESH OPTIVE or around ADVANCED OP) eye(s) as Needed. 06/14/2018 carvedilol (COREG) 6.25 TAKE 1 TABLET 180 tablet 1 mg tablet BY MOUTH TWICE DAILY WITH MEALS docusate (COLACE) 100 mg Take 100 mg 0 capsule by mouth as Needed for Constipation. FERROUS SULFATE (IRON PO) Take 1 tablet 0 by mouth as Needed. leuprolide 3 month Inject 11.25 0 (LUPRON DEPOT) 11.25 mg into the mg/1.5 mL injection muscle every 90 days. lisinopril (PRINIVIL; Take 20 mg by 0 ZESTRIL) 20 mg tablet mouth daily. LOPERAMIDE HCL (IMODIUM Take 1 tablet 0 PO) by mouth as Needed. 04/09/2018 prednisone (DELTASONE) 5 Take one 60 tablet 3 mg tabletIndications: tablet by Prostate cancer mouth twice metastatic to bone (HCC) daily with meals. pseudoephedrine (SUDAFED) Take 60 mg by 0 30 mg tablet mouth every 4 hours as needed for Congestion. VIT Take 2 Caps 0 C/E/ZN/COPPR/LUTEIN/ZEAXA by mouth N (PRESERVISION AREDS 2 daily. PO) vitamins, multiple cap Take 1 Cap by 0 mouth daily. Centrum Silver for Men warfarin (COUMADIN) 7.5 Take 7.5 mg 0 mg tablet by mouth as directed. Take 7.5 mg on Thursday, Thursday, Thursday, , Thursday, Thursday; take 5 mg by mouth on Saturdays12/29/2017 07/03/2018 amLODIPine (NORVASC) 2.5 TAKE ONE 90 tablet 1 mg tablet TABLET BY MOUTH ONCE DAILY documented as of this encounter Progress Notes * Adriana Rendon RN - 06/28/2018 8:52 AM CDT Peripheral IV Insertion Note: Patient Side: right Line Orientation:Antecubital IV Catheter Size: 22G Number of Attempts:1. IV capped and flushed with Normal Saline. IV site without redness, swelling, or pain. New dressing placed. After procedure IV cannula removed intact and hemostasis achieved. documented in this encounter Plan of Treatment Not on filedocumented as of this encounter Procedures Comments Procedure Name Priority Date/Time Associated Diagnosis MULTI GATED Routine 06/28/2018 Coronary artery disease 10:12 AM CDT involving jackson coronary artery of jackson heart without angina pectoris Essential hypertension documented in this encounter Results * REGADENOSON MPI STRESS TEST (06/28/2018 10:12 [...] Abel 64 OTHER OUTSIDE LAB Study Number [id number] OTHER OUTSIDE LAB PUL TO MARRY 0.29 [...] At OTHER OUTSIDE LAB Nuclear Report [facility] Division of Nuclear Cardiac Imaging Consultation Report EXAMINATION:D-SPECT Gated [id number] Chloride myocardial perfusion single-photon emission computed tomography for viability, resting regional wall function, resting ejection fraction, and perfusion imaging utilizing Regadenoson pharmacological stress. Date of Study:06/28/18 Study #:[id number] [facility] Billing ID:[id number] Referring Physician:Pamela Gallardo MD Requested by:Francisco Javier [...] Approximately 20 seconds later 2.36 mCi of [id number] was injected intravenously. Throughout the infusion continuous electrocardiographic monitoring and serial electrocardiograms were obtained, as well as intermittent blood pressure recordings.Gated upright D-SPECT tomographic images were then acquired approximately 5 minutes after discontinuation of the regadenoson infusion. When indicated supine D-SPECT images were also obtained.The patient returned in approximately 4 hours and received an additional intravenous injection of 0.52 mCi of [id number] Chloride as a reinjected dose to assist [...] Conclusion:Pharmacologic stress ECG is negative for ischemia. Nmrkpmzmg-em-Yelltxmizp Count Ratio:0.29(normal=or < 0.52). Scintigraphic Findings:Raw images [...] ischemia. Comparison is made with a prior [facility] study completed 10/02/2014.Ejection fraction was 57 %.There was a large, mostly reversible, mid to distal anteroapical and inferoapical perfusion abnormality.The mentioned perfusion abnormality is not present in the current study. I personally reviewed this myocardial perfusion study and jointly formulated the interpretation and opinion as outlined by the computer programmer analyst, Dr. Carlos Hampton In aggregate the current study is low risk in regards to predicted annual cardiovascular mortality rate. Performing Organization Address City/State/Zipcode Phone Number OTHER OUTSIDE LAB documented in this encounter Visit Diagnoses Diagnosis Coronary artery disease involving jackson coronary artery of jackson heart without angina pectoris Essential hypertension Unspecified essential hypertension documented in this encounter Administered Medications Action Date Dose Rate Site Medication Order MAR Action 06/28/2018 8:57 AM CDT 0.4 mg regadenoson (LEXISCAN) injection 0.4 mg Given 0.4 mg, Intravenous, ONCE, 1 dose, 06/28/18 at 0845, Inject 0.4 mg Regadenoson IV over 10 to 15 seconds, flush with 10 mL 0.9% Sodium Chloride solution IV over 10-20 seconds., MAC Procedure Area Only - Medications documented in this encounter
--- OUTSIDE RECORDS SUMMARY | 2018-07-09 11:08 | XMS REPORT | Encounter Summary ---
Author Author [facility] Organization [facility] Address Unknown Phone Unavailable Care Team Providers Care Senior Sourcing Manager Name Role Phone Maldonado Melo PA-C Unavailable Joo Harris MD Unavailable Pamela Gallardo MD PCP Adriana Amin MD 3 Darrell Gorman MD 3 Reason for Visit * Reason Comments Lab Results FLP Encounter Details Care Team Description Date Type Department Melania Rodríguez RN Lab Results (FLP) 06/28/2018 Telephone [facility] [address] [place], [place] [address] Social History Date Tobacco Use Types Packs/Day [...] history available. documented as of this encounter Miscellaneous Notes * Telephone Encounter - Melania Rodríguez RN - 06/28/2018 3:58 PM CDT Called and spoke with patient and his . I told them JOHN had reviewed his FLP and it was excellent. He is to continue Lipitor 20mg daily * Telephone Encounter - Melania Rodríguez RN - 06/28/2018 3:58 PM CDT ----- Message from Francisco Javier Lee MD sent at 06/27/2018 1:13 PM CDT ----- Continue same medications ----- Message ----- From: Sofie Perkins RN Sent: 06/24/2018 11:41 AM To: Francisco Javier Lee MD Pt on Lipitor 20 mg daily. documented in this encounter Plan of Treatment Not on filedocumented as of this encounter Visit Diagnoses Not on filedocumented in this encounter
--- OUTSIDE RECORDS SUMMARY | 2018-07-09 11:08 | XMS REPORT | Encounter Summary ---
Author Author [facility] Organization [facility] Address Unknown Phone Unavailable Care Team Providers Care Tear Down Man Name Role Phone Maldonado Melo PA-C Unavailable Joo Harris MD Unavailable Pamela Gallardo MD PCP Adriana Amin MD 3 Darrell Gorman MD 3 Reason for Visit * Reason Comments Medication Refill amlodipine Encounter Details Care Team Description Date Type Department Francisco Javier Lee MD [address] [address] [phone] Medication Refill (amlodipine) 07/03/2018 Refill [facility] [address] [address] Social History Date Tobacco Use Types Packs/Day [...] history available. documented as of this encounter Plan of Treatment Not on filedocumented as of this encounter Visit Diagnoses Not on filedocumented in this encounter
--- OUTSIDE RECORDS SUMMARY | 2018-07-09 11:08 | XMS REPORT | Encounter Summary ---
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 documented as of this encounter Last Filed Vital Signs Time Taken Vital [...] 11:03 AM CDT Body Mass Index 33.04 documented in this encounter Patient Instructions * Patient Instructions* Adriana Amin MD - 06/28/2018 11:40 AM CDT - Please stop taking Citrical because your calcium level in the blood was a little on the high side. documented in this encounter Progress Notes * Adriana Amin MD - 06/28/2018 11:40 AM CDT Name: Darrell Brown : 1930 AGE: 87 y.o. DATE OF SERVICE: 06/28/2018 Subjective: Reason for Visit: Heme/Onc Care Cancer Staging Prostate cancer metastatic to bone (HCC) Staging form: Prostate, AJCC 8th Edition - Pathologic stage from 09/26/2005: Stage IVB (pT3b, pN0, cM1b, Grade Group: 3) - Signed by Adriana Amin MD on 04/07/2018 Prostate cancer (HCC) 07/14/2006 Initial Diagnosis Prostate cancer (HCC) 09/03/2006 Surgery Oqk-ouvuo-gijsfxc radical retropubic prostatectomy, pathology revealing pT3bN0 , Marixa 4+3=7, tertiary 5, positive margins. 03/2007 - 05/2007 Radiation Salvage radiation 09/27/2015 Progression Nuclear medicine bone scan: multifocal osseous metastatic disease 10/15/2015 - Chemotherapy Lupron 22.5 mg IM q12 weeks 04/08/2018 Progression Nuclear medicine bone scan with progressive metastatic disease 04/09/2018 - Chemotherapy Abiraterone 1000 mg PO daily + Prednisone 5 mg PO BID History of Present Illness Mr. Brown returns for ongoing symptom and lab evaluation while on Abiraterone + prednisone with ADT. He reports that he has been doing quite well overall lately. He has mild fatigue and has been taking 1 short nap per day, but this seems to refresh him nicely. He has good sleep quality at night and feels rested in the morning. He also reports that the diarrhea he initially experienced after starting Abiraterone has resolved and he has one soft but formed stool per day. Denies abdominal pain, nausea, vomiting. He has been having hot flashes 1-2 times per day, which is a notable improvement. States that this is not distressing to him and doesn't take away from his QOL. Review of Systems Constitutional: +hot flashes HENT: Negative. Eyes: Negative. Respiratory: Negative. Cardiovascular: Negative. Gastrointestinal: Negative. Negative for diarrhea. Endocrine: Negative. Genitourinary: Positive for frequency and urgency. Musculoskeletal: Negative. Skin: Negative. Allergic/Immunologic: Negative. Neurological: Negative. Hematological: Negative. Psychiatric/Behavioral: Negative. 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 Harris HX CORONARY STENT PLACEMENT 10/06/2014 COLON SURGERY HX HERNIA REPAIR Umbilical Hernia Repair HX PROSTATECTOMY SIGMOIDECTOMY Family History Problem Relation Age of Onset Diabetes Mother Cancer Father Diabetes Sister Diabetes Brother Social History Socioeconomic History Marital status: Spouse name: Not on file Number of children: Not on file Years of education: Not on file Highest education level: Not on file Occupational History Not on file Tobacco Use Smoking status: Former Smoker Types: Cigars, Cigarettes Last attempt to quit: 09/04/2014 Years since quittin.8 Smokeless tobacco: Never Used Tobacco comment: 2-5 cigars/ day. Substance and Sexual Activity Alcohol use: Yes Alcohol/week: 0.0 oz Drug use: No Sexual activity: Never Other Topics Concern Not on file Social History Narrative Not on file Mr. Brown is and lives with his in [place], [place]. abiraterone (ZYTIGA) 500 mg tablet Take 2 tablets (1,000 mg by mouth daily. Take on an empty stomach, at least 1 hour before or 2 hours after food. amLODIPine (NORVASC) 2.5 mg tablet TAKE ONE TABLET BY MOUTH ONCE DAILY ascorbate calcium-bioflavonoid 1,000-200 mg tab Twice A Day aspirin 81 mg chewable tablet Take 1 Tab by mouth daily. atorvastatin (LIPITOR) 20 mg tablet TAKE 1 TABLET BY MOUTH ONCE DAILY Calcium Carbonate-Vit D3-Min 600 mg calcium- 400 unit tab Take by mouth. carboxymethyl/glycerin/poly80 (REFRESH OPTIVE ADVANCED OP) Place into or around eye(s) as Needed. carvedilol (COREG) 6.25 mg tablet TAKE 1 TABLET BY MOUTH TWICE DAILY WITH MEALS [...] Take 1 tablet by mouth as Needed. prednisone (DELTASONE) 5 mg tablet Take one tablet by mouth twice daily with meals. (Patient taking differently: Take 5 mg by mouth twice daily with meals.) pseudoephedrine (SUDAFED) 30 mg tablet Take 60 mg by mouth every 4 hours as needed for Congestion. VIT C/E/ZN/COPPR/LUTEIN/ZEAXAN (PRESERVISION AREDS 2 PO) Take 2 Caps by mouth daily. vitamins, multiple cap Take 1 Cap by mouth daily. Centrum Silver for Men warfarin (COUMADIN) 7.5 mg tablet Take 7.5 mg by mouth as directed. Take 7.5 mg on Thursday, Thursday, Thursday, , Thursday, Thursday; take 5 mg by mouth on Saturdays Vitals: 06/28/18 1103 BP: 133/84 Pulse: 93 Resp: 16 Temp: 36.6 C (97.8 F) TempSrc: Oral SpO2: 98% Weight: 92.8 kg (204 lb 9.6 oz) Height: 167.6 cm (65.98") Body mass index is 33.04 kg/m. Pain Score: Zero Pain Addressed: Patient declines intervention Patient Evaluated for a Clinical Trial: No treatment clinical trial available for this patient. Eastern Cooperative Oncology Group performance status is 1, Restricted in physically strenuous activity but ambulatory and able to carry out work of a light or sedentary nature, e.g., light house work, office work. Physical Exam Constitutional: Well-developed, well-nourished older gentleman sitting comfortably in exam room. Eyes: EOMI, no conjunctival injection, anicteric sclerae ENT: Nares patent, lips and oral mucosae moist, no exudates or ulcerations. Good dentition. No stridor. CV: Normal rate, regular rhythm, no murmur, rub, or gallop. No pitting edema. Respiratory: Normal work of breathing on room air. Good air movement throughout chest, no wheeze, rales, or rhonchi. GI: Abdomen soft and nondistended. Bowel sounds present in all 4 quadrants. No tenderness to palpation. No hepatomegaly, spleen tip not palpated. : No catheter present Msk: Normal muscle bulk and tone. No joint deformities or arthritic abnormalities. Neuro: Cranial nerves grossly intact and symmetric. No focal neurologic deficits. Slow, cautious gait. Integument/skin: No rash visualized nor any skin eruptions palpated. Heme/lymph: No pathologic-appearing bruising. No cervical or supraclavicular lymphdenopathy. Psych: Alert and oriented to person, place, date, and situation. Affect normal. Good insight and judgement. Data: I have ordered and reviewed the patient's CBC/differential and compared to prior values. The full CBC is as follows: CBC with Diff Latest Ref Rng & Units 05/17/2018 04/09/2018 10/07/2014 10/06/20142014 WBC 4.5 - 11.0 K/UL 8.0 7.0 6.7 7.9 8.8 RBC 4.4 - 5.5 M/UL 3.92(L) 3.90(L) 3.01(L) 3.27(L) 3.31(L) HGB 13.5 - 16.5 GM/DL 12.9(L) 12.5(L) 9.1(L) 9.8(L) 10.1(L) HCT 40 - 50 % 36.9(L) 36.7(L) 27.5(L) 29.8(L) 30.3(L) MCV 80 - 100 FL 94.1 94.2 91.5 91.1 91.6 MCH 26 - 34 PG 32.9 32.1 30.2 29.9 30.4 MCHC 32.0 - 36.0 G/DL 34.9 34.0 33.0 32.9 33.2 RDW 11 - 15 % 14.4 14.1 15.5(H) 15.5(H) 15.1(H) PLT 150 - 400 K/UL 259 289 377 412(H) 398 MPV 7 - 11 FL 7.7 7.5 6.7(L) 6.5(L) 6.6(L) NEUT 41 - 77 % 69 60 72 - 81(H) ANC 1.8 - 7.0 K/UL 5.60 4.30 4.90 - 7.10(H) LYMA 24 - 44 % 18(L) 23(L) 14(L) - 9(L) ALYM 1.0 - 4.8 K/UL 1.40 1.60 0.90(L) - 0.80(L) JONES 4 - 12 % 10 9 8 - 8 AMONO 0 - 0.80 K/UL 0.80 0.60 0.50 - 0.70 EOSA 0 - 5 % 2 7(H) 5 - 2 AEOS 0 - 0.45 K/UL 0.20 0.50(H) 0.30 - 0.20 BASA 0 - 2 % 1 1 1 - 0 ABAS 0 - 0.20 K/UL 0.00 0.10 0.00 - 0.00 I have ordered and reviewed the patient's CMP and compared to prior values. The full CMP is as follows: CMP Latest Ref Rng & Units 06/28/2018 06/21/2018 05/17/2018 04/09/2018 03/17/2017 NA 137 - 147 MMOL/L 137 - 137 137 140 K 3.5 - 5.1 MMOL/L 3.9 - 4.6 4.8 4.4 CL 98 - 110 MMOL/L 104 - 104 103 104 CO2 21 - 30 MMOL/L 29 - 30 28 30.0 GAP 3 - 12 4 - 3 6 10 BUN 7 - 25 MG/DL 24 - 23 22 22 CR 0.4 - 1.24 MG/DL 1.14 - 1.25(H) 1.09 0.9 GLUX 70 - 100 MG/DL 116(H) - 86 96 122 CA 8.5 - 10.6 MG/DL 10.8(H) - 10.3 10.5 10.3 TP 6.0 - 8.0 G/DL 7.3 - 6.9 7.2 6.9 ALB 3.5 - 5.0 G/DL 4.2 - 3.9 4.0 4.1 ALKP 25 - 110 U/L 55 - 63 67 62 ALT 7 - 56 U/L 15 18 17 16 21 TBILI 0.3 - 1.2 MG/DL 0.9 - 0.6 0.5 0.6 GFR >60 mL/min >60 - 55(L) >60 82 GFRAA >60 mL/min >60 - >60 >60 - I have reviewed the patient's magnesium and compared to prior values. The magnesium value is as follows: Lab Results Component Value Date MG 1.9 10/07/2014 MG 1.7 10/06/2014 MG 1.8 10/06/2014 MG 1.7 10/05/2014 MG 1.8 10/05/2014 I have reviewed the patient's PSA and compared to prior values. PSA trend is as follows: Lab Results Component Value Date PSA 0.54 06/28/2018 PSA 0.54 05/17/2018 PSA 2.24 04/09/2018 PSA 1.76 03/18/2018 PSA 0.24 11/23/2017 TESTOSTER <10 (L) 05/17/2018 TESTOSTER <10 (L) 04/09/2018 Assessment and Plan: Mr. Brown is a 87 y.o. gentleman with metastatic, castrate- resistant prostate cancer and presents for ongoing evaluation and management of this. 1. mCRPC: Reviewed PSA trend, and informed Mr. Brown (and by phone) that this is consistent with ongoing biochemical response to treatment. RTC 6 weeks for lab/toxicity check while on ADT + Abiraterone and prednisone and to receive Lupron. Will reach out to his dentist (Dr. Torres Salter in [place], [place]) to discuss dental clearance for antiresorptive therapy. If Mr. Brown has dental clearance, we will also proceed with Denosumab at that time. 2. Osteopenia (by imaging, although R ankle fracture more clinically consistent with osteoporosis): Denosumab 120 mg SQ q3 months for mCRPC 3. Diarrhea: Resolved 4. Hot flashes: Grade 1, stable, no indication for treatment 5. Goals: 04/09/18: Mr. Brown voiced a goal to try more cancer treatment with the intent of helping prolong his life but ideally without resulting in significant symptom burden or frequent travel. Total cgdw-np-fady time for visit: 19minutes, all (> 50%) of which was spent in education and counseling with patient and in clinic. Discussed the patient' s cancer diagnosis, management, and reviewed goals. documented in this encounter Plan of Treatment Not on filedocumented as of this encounter Visit Diagnoses Diagnosis Prostate cancer metastatic to bone (HCC) - Primary Hot flash due to medication documented in this encounter
--- OUTSIDE RECORDS SUMMARY | 2018-07-09 11:08 | XMS REPORT | Encounter Summary ---
Author Author [facility] Organization [facility] Address Unknown Phone Unavailable Care Team Providers Care Nuclear Operator Name Role Phone Maldonado Melo PA-C Unavailable Joo Harris MD Unavailable Pamela Gallardo MD PCP Adriana Amin MD 3 Darrell Gorman MD 3 Encounter Details Care Team Description Date Type Department Adriana Amin MD [address] [place] [address] [phone] 06/29/2018 Documentation The [address] [address] Social History Date Tobacco Use Types Packs/Day [...] history available. documented as of this encounter Progress Notes * Jeremy Milton RN - 06/29/2018 3:57 PM CDT Results request on PSA. Message to Dr. Bonilla Dodd . Left VM to patient should receive results by tomorrow am documented in this encounter Plan of Treatment Not on filedocumented as of this encounter Visit Diagnoses Not on filedocumented in this encounter
--- OUTSIDE RECORDS SUMMARY | 2018-07-09 11:08 | XMS REPORT | Encounter Summary ---
Author Author [facility] Organization [facility] Address Unknown Phone Unavailable Care Team Providers Care Production Planner Name Role Phone Maldonado Melo PA-C Unavailable Joo Harris MD Unavailable Pamela Gallardo MD PCP Adriana Amin MD 3 Darrell Gorman MD 3 Reason for Visit * Reason Comments Results Nuc results discussed wit patient Encounter Details Care Team Description Date Type Department Cher Cee RN Results (Nuc results discussed wit patient) 06/29/2018 Telephone The [facility] [address] [place], [place] [id number] Social History Date Tobacco Use Types Packs/Day [...] encounter Miscellaneous Notes * Telephone Encounter - Cher Cee RN - 06/29/2018 1:46 PM CDT ----- Message from Francisco Javier Lee MD sent at 06/29/2018 12:51 PM CDT ----- Stress test is ok. Please let the patient know. documented in this encounter Plan of Treatment Not on filedocumented as of this encounter Visit Diagnoses Not on filedocumented in this encounter
--- OUTSIDE RECORDS SUMMARY | 2018-07-09 11:08 | XMS REPORT | Encounter Summary ---
Author Author [facility] Organization [facility] Address Unknown Phone Unavailable Care Team Providers Care Dishwashing Machine Operator Name Role Phone Maldonado Melo PA-C Unavailable Joo Harris MD Unavailable Pamela Gallardo MD PCP Adriana Amin MD 3 Darrell Gorman MD 3 Encounter Details Care Team Description [place] [address] [place] [address] [phone] 06/28/2018 [facility] [address] [place] [address] Social History Date Tobacco Use Types Packs/Day [...] ONCE DAILY documented as of this encounter Plan of Treatment Not on filedocumented as of this encounter Procedures Comments Procedure Name Priority Date/Time Associated Diagnosis PROSTATIC SPECIFIC Routine 06/28/2018 Prostate cancer (HCC) ANTIGEN-PSA 10:31 AM CDT COMPREHENSIVE METABOLIC Routine 06/28/2018 Prostate cancer (HCC) PANEL 10:31 AM CDT documented in this encounter Results * PROSTATIC SPECIFIC ANTIGEN-PSA (06/28/2018 10:31 AM CDT) Prostatic 0.54 <6.01 NG/ML [facility] Specific Comment: Antigen REFERENCE RANGES AGEPSA VALUE <50<=1.5 50-54 <=2.0 55-59 <=3.0 60-69 <=4.0 70+<=6.0 Specimen Blood Performing Organization Address City/State/Zipcode Phone Number [facility] [address] [place] [address] * COMPREHENSIVE METABOLIC PANEL (06/28/2018 10:31 AM CDT) Sodium 137 137 - 147 MMOL/L [facility] [...] AST (SGOT) 15 7 - 40 U/L [facility] CO2 29 21 - 30 MMOL/L [facility] ALT (SGPT) 15 7 - 56 U/L [facility] Anion Gap 4 3 - 12 [facility] eGFR Non >60 >60 mL/min [facility] Comment: [place] The eGFR is not validated for use in drug dosing adjustments.Continue to use estimated creatinine clearance per dosing reference text.Please contact the Clinical Pharmacist for questions. eGFR >60 >60 mL/min [facility] [place] Comment: The eGFR is not validated for use in drug dosing adjustments.Continue to use estimated creatinine clearance per dosing reference text.Please contact the Clinical Pharmacist for questions. Specimen Blood Performing Organization Address City/State/Zipcode Phone Number [facility] [address] [place] [address] documented in this encounter Visit Diagnoses Diagnosis Prostate cancer (HCC) Malignant neoplasm of prostate documented in this encounter
--- OUTSIDE RECORDS SUMMARY | 2018-07-09 11:09 | XMS REPORT | Encounter Summary ---
Author Author [facility] Organization [facility] Address Unknown Phone Unavailable Care Team Providers Care Front Load Trash Truck Driver Name Role Phone Maldonado Melo PA-C Unavailable Joo Harris MD Unavailable Pamela Gallardo MD PCP Adriana Amin MD 3 Darrell Gorman MD 3 Reason for Visit * Reason Comments Lab Results FLP, ALT, AST Encounter Details Care Team Description Date Type Department Sofie Perkins, surgical corsetier Results (FLP, ALT, AST) 06/23/2018 Documentation The [facility] [address] [place] [address] Social History Date Tobacco Use Types Packs/Day [...]
--- OUTSIDE RECORDS SUMMARY | 2018-07-09 11:09 | XMS REPORT | Encounter Summary ---
Author Author [facility] Organization [facility] Address Unknown Phone Unavailable Care Team Providers Care Precision Lens Generator Name Role Phone Maldonado Melo PA-C Unavailable Joo Harris MD Unavailable Pamela Gallardo MD PCP Adriana Amin MD 3 Darrell Gorman MD 3 Reason for Visit * Reason Comments Stress Test Instructions Thall Prep reviewed w/ pt. RX Meds ok in AM. Hold diuretics & OTC Meds. Advised to get labs prior (Cher) to Nuclear Stress, Understanding expressed Encounter Details Care Team Description Date Type Department August, Stress Test Instructions (Thall Prep reviewed w/ pt. RX Meds ok in AM. Hold diuretics & OTC Meds. Advised to get labs prior (Cher) to Nuclear Stress, Understanding expressed) 06/24/2018 Telephone The [facility] [id number] [place] [address] Social History Date Tobacco Use Types Packs/Day [...]
--- OUTSIDE RECORDS SUMMARY | 2018-07-09 11:09 | XMS REPORT | Encounter Summary ---
Author Author [facility] Organization [facility] Address Unknown Phone Unavailable Care Team Providers Care Waste Treatment Operator Name Role Phone Maldonado Melo PA-C Unavailable Joo Harris MD Unavailable Pamela Gallardo MD PCP Adriana Amin MD 3 Darrell Gorman MD 3 Reason for Referral * Radiology Services (Routine) Referred By Contact Referred To Contact Status Reason Specialty Diagnoses / Procedures Adriana Amin MD [address] [place] [address] [facility] [address] [place] [address] No Auth Needed Radiology Diagnoses Prostate cancer metastatic to bone (HCC) Osteopenia of multiple sites P rocedures BONE DENSITY SPINE/HIP * Radiology Services (Routine) Referred By Contact Referred To Contact Status Reason Specialty Diagnoses / Procedures Adriana Amin MD [address] [place] [address] [facility] [address] [place], [place] [id number] No Auth Needed Radiology Diagnoses Prostate cancer metastatic to bone (HCC) Osteopenia of multiple sites P rocedures BONE DENSITY SPINE/HIP Reason for Visit * Radiology Services (Routine) Referred By Contact Referred To Contact Status Reason Specialty Diagnoses / [place] [address] [place] [address] [facility] [address] [place] [address] No Auth Needed Radiology Diagnoses Prostate cancer metastatic to bone (HCC) Osteopenia of multiple sites P rocedures BONE DENSITY SPINE/HIP Encounter Details Care Team Description Date [place] [address] [place] [address] 05/17/[address] [address] Social History Date Tobacco Use Types Packs/Day [...] hour before or 2 hours after food. 10/07/2014 aspirin 81 mg chewable Take 1 Tab by 90 Tab 3 tablet mouth daily. 03/15/2018 atorvastatin (LIPITOR) 20 TAKE 1 TABLET 90 tablet 0 mg tablet BY MOUTH ONCE DAILY 08/27/2012 Calcium Carbonate-Vit Take by 0 D3-Min 600 mg calcium- mouth. 400 unit tab carboxymethyl/glycerin/po Place into 0 ly80 (REFRESH OPTIVE or around ADVANCED OP) eye(s) as Needed. docusate (COLACE) 100 mg Take 100 mg [...] mg tablet TABLET BY MOUTH ONCE DAILY 06/28/2018 calcium phosphate Citracal + D3 0 trib/vit D3 (CALCIUM (calcium PHOSPHATE-VITAMIN D3 PO) phosphate) oral 12/16/2017 06/12/2018 carvedilol (COREG) 6.25 TAKE 1 TABLET 180 tablet 1 mg tablet BY MOUTH TWICE DAILY WITH MEALS 06/18/2018 other medication Take 1 Dose 0 by mouth daily. Medication Name & Strength: Oriana-C Dose(how many): 1000mg (2) Frequency(how often): daukt 06/18/2018 other medication Take 1 Dose 0 by mouth daily. Medication Name & Strength: Citracal+D Dose(how many): 630mg Frequency(how often): daily 06/18/2018 warfarin (COUMADIN) 5 mg Take 5 mg by 0 tablet mouth every Thursday. documented as of this encounter Plan of Treatment Not on filedocumented as of this encounter Procedures Comments Procedure Name Priority Date/Time Associated Diagnosis BONE DENSITY SPINE/HIP Routine 05/17/2018 Prostate cancer 10:46 AM PIPE PULLER metastatic to bone (HCC) Osteopenia of multiple sites documented in this encounter Results * BONE DENSITY SPINE/HIP (05/17/2018 10:46 AM PIPE PULLER) Impressions Performed At Statistically stable bone mineral [...] 12:59 PM. Narrative Performed At BONE DENSITOMETRY [facility] CLINICAL INDICATION:87 years old Male, prostate cancer metastatic to bone. Osteopenia of multiple sites. COMPARISON: 11/18/2016 FINDINGS: DEXA scan of the lumbar spine and bilateral hips were performed with [employer]. FRAX score was calculated from patient reported [...] Interface, Radiant Results - 05/17/2018 1:05 PM PIPE PULLER BONE DENSITOMETRY CLINICAL INDICATION: 87 years old Male, prostate cancer metastatic to bone. Osteopenia of multiple sites. COMPARISON: 11/18/2016 FINDINGS: DEXA scan of the lumbar spine and bilateral hips were performed with [employer]. FRAX score was calculated from patient reported [...] Address City/State/Zipcode Phone Number [facility] documented in this encounter Visit Diagnoses Diagnosis Prostate cancer metastatic to bone (HCC) Osteopenia of multiple sites documented in this encounter
--- OUTSIDE RECORDS SUMMARY | 2018-07-09 11:09 | XMS REPORT | Encounter Summary ---
Author Author [facility] Organization [facility] Address Unknown Phone Unavailable Care Team Providers Care Framing Machine Tender Name Role Phone Maldonado Melo PA-C Unavailable Joo Harris MD Unavailable Pamela Gallardo MD PCP Adriana Amin MD 3 Darrell Gorman MD 3 Reason for Visit * Reason Comments Injection Lupron * Treatment (Routine) Referred By Contact Referred To Contact Status Reason Specialty Diagnoses / Procedures Joo Harris MD [address] [address] [place] [address] Joo Harris MD [address] [facility] [address] [place] [address] Authorized Oncology Diagnoses Prostate cancer (HCC) Prostate cancer metastatic to bone (HCC) Osteopenia of multiple sites Hypogonadism, male Androgen deprivation therapy P rocedures leuprolide(+) 4 month (LUPRON DEPOT) Encounter Details Care Team Description Date Type Department Adriana Amin MD [address] [place] [address] [phone] 05/17/2018 [facility] [place] [address] [place] [phone] Social History Date Tobacco Use Types Packs/Day [...] every Thursday. documented as of this encounter Progress Notes * Graeme Liu RN - 05/17/2018 2:24 PM FOOD SAFETY OFFICER Patient received Lupron and tolerated without difficulty. No pertinent changes since last assessment. 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 NOTE: This is a HIGH ALERT Medication., documented in this encounter
--- OUTSIDE RECORDS SUMMARY | 2018-07-09 11:09 | XMS REPORT | Encounter Summary ---
Author Author [facility] Organization [facility] Address Unknown Phone Unavailable Care Team Providers Care Manager Field Service Name Role Phone Maldonado Melo PA-C Unavailable Joo Harris MD Unavailable Pamela Gallardo MD PCP Adriana Amin MD 3 Darrell Gorman MD 3 Encounter Details Care Team Description Date Type Department Adriana Amin MD [address] [place] [address] [phone] 05/18/2018 Orders Only The [address] [address] Social History Date Tobacco Use Types Packs/Day [...]
--- OUTSIDE RECORDS SUMMARY | 2018-07-09 11:09 | XMS REPORT | Encounter Summary ---
Author Author [facility] Organization [facility] Address Unknown Phone Unavailable Care Team Providers Care Traffic Enumerator Name Role Phone Maldonado Melo PA-C Unavailable Joo Harris MD Unavailable Pamela Gallardo MD PCP Adriana Amin MD 3 Darrell Gorman MD 3 Reason for Referral * Consult, Test & Treat (Routine) Referred By Contact Referred To Contact Status Reason Specialty Diagnoses / Procedures Francisco Javier Lee MD [address] [place] [address] New Request Procedures REQUEST FOR CARDIOLOGY APPOINTMENT * Consult, Test & Treat (Routine) Referred By Contact Referred To Contact Status Reason Specialty Diagnoses / Procedures Francisco Javier Lee MD [address] [place] [id number] [facility] [address] [place], [place] [id number] No Auth Needed Cardiology Diagnoses Coronary artery disease involving [place] coronary artery of [place] heart without angina pectoris Essential hypertension P rocedures REGADENOSON MPI STRESS TEST CHG MYOCARDIAL SPECT MULTIPLE STUDIES * Consult, Test & Treat Referred By Contact Referred To Contact Status Reason Specialty Diagnoses / Procedures Darrell Velez MD Forwarding Address Unknown [facility] [address] [address] Closed Cardiology Procedures REQUEST FOR CARDIOLOGY APPOINTMENT Reason for Visit * Reason Comments Cardiac Eval * Consult, Test & Treat Referred By Contact Referred To Contact Status Reason Specialty Diagnoses / Procedures Darrell Velez MD Forwarding Address Unknown [facility] [address] [place] [id number] Closed Cardiology Procedures REQUEST FOR CARDIOLOGY APPOINTMENT Encounter Details Care Team Description Date Type Department Francisco Javier Lee MD [address] [place], [place] [id number] [phone] Cardiac Eval 06/18/2018 Office Visit [facility] [place] [id number] Social History Date Tobacco Use Types Packs/Day [...] Vital Signs Time Taken Vital Sign Reading 06/18/2018 12:42 PM CDT Blood Pressure 138/72 06/18/2018 12:42 PM CDT Pulse 65 - Temperature - - Respiratory Rate - - Oxygen Saturation - - Inhaled Oxygen - Concentration 06/18/2018 12:42 PM CDT Weight 97.5 kg (215 lb) 06/18/2018 12:42 PM CDT Height 167.6 cm (5' 6") 06/18/2018 12:42 PM CDT Body Mass Index 34.7 documented in this encounter Patient Instructions * Patient Instructions* Francisco Javier Lee MD - 06/18/2018 1:00 PM CDT Lipid, AST and ALT Reg stress thallium Continue same medications Follow up in 6 months [facility] Stress Test Instructions PLEASE REPORT TO: ____[facility] ([address], [address], [place], [place]) - ____[place] ([address], [address], [place], [place]) - ____[place] [facility] ([address], [place]) - ____[place] [facility] ([address], [place], [place]) - ____[facility] ([address], [place], [place]) - ____[place] [facility] ([address] [place] ) - [facility] Date of Test at for Are you able to raise your arm up by your head for about 20 minutes? yes Can you lie on your back for approximately 20 minutes with minimal movement? yes The Thallium evaluation has two parts -- two nuclear scans. The first scan is done in the morning and the second three to four hours later. Wear comfortable clothing. Bring or wear comfortable walking shoes. It is recommended not to hold infants for 2 to 3 days after the test. Please let the nuclear technologists know if you plan on flying after the test. NO CAFFEINE 24 HOURS PRIOR TO TEST. Examples: coffee, tea, decaf coffee or tea, cola, chocolate. DO NOT EAT OR DRINK THE MORNING OF YOUR TEST unless otherwise instructed. (You may have a couple sips of water.) If you are a diabetic, if insulin dependent: please take one third of your insulin with a light breakfast (two pieces of dry toast and a small juice). Bring insulin and medication with you to the test. _X__ TAKE MORNING MEDICATIONS WITH A COUPLE SIPS OF WATER PRIOR TO TEST. HOLD THE FOLLOWING MEDICATIONS INDICATED BELOW: Beta blockers -- carvedilol -- on the morning before the procedure. Please hold all vitamins morning of the procedure. WHAT TO DO BETWEEN THE FIRST TWO THALLIUM SCANS: 1. No strenuous exercise should be performed during this time. 2. A light lunch is permissible. The technologist will give you a list of appropriate foods. 3. Please return 15 minutes prior to the schedule of your second scan. Our nuclear licensing engineer will tell you exactly what time to return. 4. Please do not use tobacco products in between scans. 5. After the first scan is completed, you may resume usual medications. TEST FINDINGS: You will receive the results of the test within 7 business days of its completion by telephone, unless arranged differently at the time of the procedure. If you have any questions concerning your thallium test or if you do not hear from your MAC physician/or nurse within 7 business days, please call the appropriate office checked above. Instructions given by Sofie Perkins RN documented in this encounter Progress Notes * Francisco Javier Lee MD - 06/18/2018 1:00 PM CDT Date of Service: 06/18/2018 Darrell Brown is a 87 y.o. male. HPI Mr. Brown is a pleasant 87-year-old male with a history of hypertension, hyperlipidemia, coronary artery disease status post stenting of the left anterior descending artery in 2014. He had an abnormal stress thallium study at that time. LAD had 90% mid-stenosis. There was also about 60% to 70% stenosis in the mid-right coronary artery and posterolateral branch had 70% stenosis. An echocardiogram in March 2017 demonstrated ejection fraction of 65%, trace mitral and tricuspid regurgitation. Sinus of Valsalva was mildly dilated. He had a history of prostate cancer as well as deep venous thrombosis. He has been on Coumadin for a long time. Deep venous thrombosis mostly involved left lower extremity. His recent INR has been 1.5, which has been checked through your office. He denies any blood in the stool or black stool. The patient denies any complaint of chest pain at rest or with limited walking. He and his used to walk about 20-25 minutes before the winter weather, but in the last couple of months, they have not done much walking. They started again and walked for about 10 minutes. He has some leg swelling in the left lower extremity off and on because of history of deep venous thrombosis. He denies any orthopnea or paroxysmal nocturnal dyspnea. His cholesterol was not checked recently. He denies any muscle ache. He is currently on Lipitor 20 mg daily. His blood pressure has been a bit on the high side during [facility] over the last 3 months and varies between 140-155 mmHg systolic. He denies any headache or blurred vision. CARDIOVASCULAR STUDIES: EKG demonstrates sinus rhythm and no significant ST-T abnormalities. QTc is 391 milliseconds. ASSESSMENT AND PLAN: 1. Coronary artery disease. The patient had stenting of the LAD in 2014 but had moderate disease in the right coronary artery as well. No stenting was done to the right coronary artery. I will schedule him for a pharmacological stress thallium study to evaluate significant ischemia. He will not be able to walk on the treadmill. He is to continue with the aspirin 81 mg daily. 2. Hypertension. His blood pressure is borderline today. We discussed the option of increasing the medications. We can increase both lisinopril or amlodipine which he is on lower doses. Coreg is also low dose, but his heart rate is already in the 60s. I will prefer to increase BEN inhibitors or amlodipine if needed. His left ventricular systolic function has been normal in the past, and we can increase either of these medications. Likely, I will consider increasing the dose of amlodipine which is a very low dose at present. I advised him to check his blood pressure at home and call us and we will make a determination at that time. 3. Hypercholesterolemia. He is to continue the Lipitor. I have given him a lab slip to have repeat lipid check, which he will get it checked in [place]. Patient is to continue to follow in your office for INR management for deep venous thrombosis. ([id number]) We appreciate the opportunity in taking care of Darrell Brown, please feel free to contact us if there is any further question. On examination, the patient is sitting comfortably on exam bed in no respiratory distress. No cyanosis, clubbing or icterus noted. Neck is supple. No jugular venous distention, lymphadenopathy or carotid bruit. Chest is clear to auscultation. No wheeze or crackles. Cardiovascular: S1, S2 are normal. No S3 , S4 or murmur. Abdomen is soft, nontender. There is no organomegaly. Neurologically, the patient is alert, oriented times 3. Strength is normal. Extremities: No pedal edema noted. Peripheral pulses, anterior and posterior tibial are 2+. 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 Androgen deprivation therapy Chronic anticoagulation Mood changes 01/29/2016 Insomnia 01/29/2016 Obesity (BMI 30-39.9) Osteopenia [...] infarction (HCC) 10/26/2014 Coronary artery disease 10/26/2014 1. 09/20/14 Echo: EF 60%. Mild concentric [...] a PLV branch having 70 % stenosis. 4. 10/05/14 PCI/Stent Successful orbital atherectomy [...] are mildly dilated. PAP=28 mmHg Diverticulitis 09/20/2014 Erectile dysfunction following radical prostatectomy (+)baseline ED prior to non-nerve sparing prostatectomy. Prostate cancer (HCC) 07/14/2006 Non-Nerve Sparing RRP -- 09/03/2006; Dr. Harris pT3b N0 Mx, [place] 4+3=7 w/ Tertiary 5, (+)margins. Biochemical recurrence s/p Salvage XRT, completed May 2007. Post-Salvage XRT PSA; initially undetectable, but started to increase in 2012. Bone scan (09/27/2015): Scattered osseous metastatic disease. Initiate ADT, first Lupron injection 10/15/2015. Vitals: 06/18/18 1242 BP: 138/72 Pulse: 65 Weight: 97.5 kg (215 lb) Height: 1.676 m (5' 6") Body mass index is 34.7 kg/m. 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 Androgen deprivation therapy Chronic anticoagulation Mood changes 01/29/2016 Insomnia 01/29/2016 Obesity (BMI 30-39.9) Osteopenia 10/15/2015 DEXA (10/15/2015): Severe osteopenia. Moderate to high risk for fracture. DEXA Scan (11/19/2016): Statistically significant interval increase in bone mineral density, now with findings of moderate osteopenia, greatest within the bilateral femoral necks. 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 Harris pT3b N0 Mx, [place] 4+3=7 w/ Tertiary 5, (+)margins. Biochemical recurrence s/p Salvage XRT, completed May 2007. Post-Salvage XRT PSA; initially undetectable, but started to increase in 2012. Bone scan (09/27/2015): Scattered osseous metastatic disease. Initiate ADT, first Lupron injection 10/15/2015. Non-ST elevated myocardial infarction (HCC) 10/26/2014 Coronary artery disease 10/26/2014 7. 09/20/14 Echo: EF 60%. Mild concentric LVH. Mild left atrial dilation. No significant valvular abnormalities. Mildly dilated sinuses of Valsalva. 8. 10/02/14 Regadenoson Thallium: EF 57%. Large intense mid to distal anteroapical and inferoapical perfusion abnormality which is mostly reversible, implying high grade proximal to mid LAD disease. 9. 10/04/14 Cath: Multivessel coronary artery disease with greater than 90% heavily calcified stenosis in the mid LAD. Moderate disease in the mid circumflex with a calcific 40% to 50% stenosis. Moderate to severe disease in a large RCA with mid RCA having 60-70% focal stenosis and a PLV branch having 70 % stenosis. 10. 10/05/14 PCI/Stent Successful orbital atherectomy and stenting with DEVORA ( Promus 2.75 X 20 mm stent) in mid LAD, which was post dilated to a 3.25 size at 20 atmospheres. Dual antiplatelet therapy continued at least 1 year unless contraindicated by bleeding. 11. 03/10/16 Echo: EF 50-55% with mild abnormal septal motion and mid to distal anteroseptal-apical hypokinesis. Mild concentric LVH. Mild LA dilatation. Mild AV sclerosis. Mild mitral annular calcification. Mild aortic root dilatation. PAP=22 MmHg. 12. 03/18/17 Echo: EF 65%. Trace MV and TV regurgitation. Sinuses of Valsalva are mildly dilated. PAP=28 mmHg Diverticulitis 09/20/2014 Erectile dysfunction following radical prostatectomy (+)baseline ED prior to non-nerve sparing prostatectomy. Prostate cancer (HCC) 07/14/2006 Non-Nerve Sparing RRP -- 09/03/2006; Dr. Harris pT3b N0 Mx, [place] 4+3=7 w/ Tertiary 5, (+)margins. Biochemical recurrence s/p Salvage XRT, completed May 2007. Post-Salvage XRT PSA; initially undetectable, but started to increase in 2012. Bone scan (09/27/2015): Scattered osseous metastatic disease. Initiate ADT, first Lupron injection 10/15/2015. Review of Systems Constitution: Positive for weakness. HENT: Positive for congestion, hearing loss, stridor and tinnitus. Eyes: Positive for photophobia. Cardiovascular: Positive for leg swelling. Respiratory: Positive for cough. Endocrine: Positive for polyuria. Hematologic/Lymphatic: Bruises/bleeds easily. Skin: Negative. Musculoskeletal: Positive for back pain. Gastrointestinal: Positive for flatus. Genitourinary: Positive for bladder incontinence, decreased libido, incomplete emptying and nocturia. Psychiatric/Behavioral: Positive for memory loss. The patient has insomnia. Allergic/Immunologic: Negative. Physical Exam Cardiovascular Studies Problems Addressed Today Encounter Diagnoses Name Primary? Coronary artery disease involving [place] coronary artery of [place] heart without angina pectoris Yes Essential hypertension Other hyperlipidemia Assessment and Plan Current Medications (including today's revisions) abiraterone (ZYTIGA) 500 mg tablet Take 2 [...] calcium- 400 unit tab Take by mouth. calcium phosphate trib/vit D3 (CALCIUM PHOSPHATE-VITAMIN D3 PO) Citracal + D3 (calcium phosphate) oral carboxymethyl/glycerin/poly80 (REFRESH OPTIVE ADVANCED OP) Place into [...] needed (Thursday, Thursday, Thursday, , Thursday, Thursday). documented in this encounter Plan of Treatment Order Schedule Name Priority Associated Diagnoses Ordered: 06/18/2018 ECG 12-LEAD Routine Coronary artery disease involving [place] coronary artery of [place] heart without angina pectoris Essential hypertension documented as of this encounter Results * REGADENOSON MPI STRESS [...] Abel 64 OTHER OUTSIDE LAB Study Number [id number] OTHER OUTSIDE LAB PUL TO MARRY 0.29 [...] At OTHER OUTSIDE LAB Nuclear Report [facility] Division of Nuclear Cardiac Imaging Consultation Report EXAMINATION:D-SPECT Gated [id number] Chloride myocardial perfusion single-photon emission computed tomography for viability, resting regional wall function, resting ejection fraction, and perfusion imaging utilizing Regadenoson pharmacological stress. Date of Study:06/28/18 Study #:[id number] [facility] Billing ID:[id number] Referring Physician:Pamela Gallardo MD Requested by:Francisco Javier [...] Approximately 20 seconds later 2.36 mCi of [id number] was injected intravenously. Throughout the infusion continuous electrocardiographic monitoring and serial electrocardiograms were obtained, as well as intermittent blood pressure recordings.Gated upright D-SPECT tomographic images were then acquired approximately 5 minutes after discontinuation of the regadenoson infusion. When indicated supine D-SPECT images were also obtained.The patient returned in approximately 4 hours and received an additional intravenous injection of 0.52 mCi of [id number] Chloride as a reinjected dose to assist [...] Conclusion:Pharmacologic stress ECG is negative for ischemia. Jncjupkhp-id-Luzldgiktp Count Ratio:0.29(normal=or < 0.52). Scintigraphic Findings:Raw images [...] ischemia. Comparison is made with a prior [facility] study completed 10/02/2014.Ejection fraction was 57 %.There was a large, mostly reversible, mid to distal anteroapical and inferoapical perfusion abnormality.The mentioned perfusion abnormality is not present in the current study. I personally reviewed this myocardial perfusion study and jointly formulated the interpretation and opinion as outlined by the biomedical photographer, Dr. Carlos Hampton In aggregate the current study is low risk in regards to predicted annual cardiovascular mortality rate. Performing Organization Address [facility] [employer] Phone Number OTHER OUTSIDE LAB * ALT (SGPT) (06/21/2018) ALT (SGPT) 18 [facility] Specimen Blood - Blood Performing Organization Address [facility] [place] Phone Number [facility] [address] [place] [address] * AST (SGOT) (06/21/2018) AST (SGOT) 14 [facility] Specimen Blood - Blood Performing Organization Address [facility] [place] Phone Number [facility] [address] [place] [address] * LIPID PROFILE (06/21/2018) Cholesterol 121 [facility] Triglycerides 76 [facility] HDL 57 [facility] LDL 49 [facility] VLDL [facility] Non HDL [facility] Cholesterol Cholesterol/HDL 2.1 [facility] Ratio Specimen Blood - Blood Narrative Performed At [facility] Pt on Lipitor 20 mg daily Performing Organization Address [facility]/[employer] Phone Number MAIN LAB [address] [place] [address] documented in this encounter Visit Diagnoses Diagnosis Coronary artery disease involving [place] coronary artery of [place] heart without angina pectoris - Primary Essential hypertension Unspecified essential hypertension Other hyperlipidemia documented in this encounter
--- OUTSIDE RECORDS SUMMARY | 2018-07-09 11:09 | XMS REPORT | Encounter Summary ---
Author Author [facility] Organization [facility] Address Unknown Phone Unavailable Care Team Providers Care Horologist Apprentice Name Role Phone Maldonado Melo PA-C Unavailable Joo Harris MD Unavailable Pamela Gallardo MD PCP Adriana Amin MD 3 Darrell Gorman MD 3 Reason for Visit * Reason Comments Heme/Onc Care Encounter Details Care Team Description Date Type Department Adriana Amin MD [address] [place], [place] [id number] Prostate cancer (HCC) (Primary Dx); Osteopenia of lumbar spine; Secondary malignant neoplasm of bone (HCC); Diarrhea due to drug 05/17/2018 Office Visit The [address] [phone] Social History Date Tobacco Use Types Packs/Day [...] Vital Signs Time Taken Vital Sign Reading 05/17/2018 1:00 PM [facility] Blood Pressure 155/75 05/17/2018 1:00 PM [facility] Pulse 69 05/17/2018 1:00 PM [facility] Temperature 36.8 C (98.2 F) 05/17/2018 1:00 PM [facility] Respiratory Rate 16 05/17/2018 1:00 PM [facility] Oxygen Saturation 98% - Inhaled Oxygen - Concentration 05/17/2018 1:00 PM [facility] Weight 94 kg (207 lb 3.2 oz) 05/17/2018 1:00 PM [facility] Height 162.7 cm (5' 4.06") 05/17/2018 1:00 PM [facility] Body Mass Index 35.5 documented in this encounter Patient Instructions * Patient Instructions* Adriana Amin MD - 05/17/2018 1:00 PM [facility] Today your PSA was quite a bit lower than before, as it has decreased from 2.24 to 0.54. You have osteopenia, but because of being treated for prostate cancer you are at a qgimhx-epup-gxikvj risk for a broken bone. Therefore, we will give you a dose of a medication called Reclast at the time of your next Lupron. We will give it to you as a one-hour injection once per day. For diarrhea you can take Imodium (Loperamide) as needed for diarrhea, maximum of 8 pills per day. IFFS documented in this encounter Progress Notes * Adriana Amin MD - 05/17/2018 1:00 PM [facility] Name: Darrell Brown : 1930 AGE: 87 y.o. DATE OF SERVICE: 05/17/2018 Subjective: Reason for Visit: Heme/Onc Care Cancer Staging Prostate cancer metastatic to bone (HCC) Staging form: Prostate, AJCC 8th Edition - Pathologic stage from 09/26/2005: Stage IVB (pT3b, pN0, cM1b, Grade Group: 3) - Signed by Adriana Amin MD on 04/07/2018 Prostate cancer (HCC) 07/14/2006 Initial Diagnosis Prostate cancer (HCC) 09/03/2006 Surgery Lpz-jdlku-rivvbtp radical retropubic prostatectomy, pathology revealing pT3bN0 , [...] while on Abiraterone + prednisone with ADT. Will also review bone density testing. Mr. Brown states that he has been feeling great overall, but that he has developed two weeks of mild bloating and diarrhea. He notes that this developed approximately 2 weeks ago and is characterized by loose stools 2-3 times per day. This was accompanied by bloating not any melena, hematochezia, abdominal pain, nausea, or vomiting. He has not tried any treatment for this and reports that it is not distressing to him. He has ongoing hot flashes that have been stable for years. They occur multiple times per day and are associated with mild sweating. Denies any significant night sweats. He reports that these are "hardly anything" and do not interrupt his life much right now. Otherwise, he denies any other new concerns or symptoms. Denies any pain, dyspnea, cough, chest pain, headache, rash, or other symptoms. Review of Systems Constitutional: +hot flashes HENT: Negative. Eyes: Negative. Respiratory: Negative. Cardiovascular: Negative. Gastrointestinal: Positive for diarrhea (with bloating). Endocrine: Negative. Genitourinary: Positive for frequency and urgency. Musculoskeletal: Negative. Skin: Negative. Allergic/Immunologic: Negative. Neurological: Negative. Hematological: Negative. Psychiatric/Behavioral: Negative. Objective: Past medical, surgical, family, and social history have been reviewed with the patient on 05/17/2018, and confirmed accuracy of the information outlined [...] file Highest education level: Not on file Social Needs Financial resource strain: Not on file Food insecurity - worry: Not on file Food insecurity - inability: Not on file Transportation needs - medical: Not on file Transportation needs - non-medical: Not on file Occupational History Not on file Tobacco Use Smoking status: Former Smoker Types: Cigars, Cigarettes Last attempt to quit: 09/04/2014 Years since quittin.7 Smokeless tobacco: Never Used Tobacco comment: 2-5 cigars/ day. Substance and Sexual Activity Alcohol use: Yes Alcohol/week: 0.0 oz Drug use: No Sexual activity: No Other Topics Concern Not on file Social History Narrative Not on file Mr. Brown is and lives with his in [place], [place]. abiraterone (ZYTIGA) 500 mg tablet Take 1,000 mg by mouth daily. Take on an empty stomach, at least 1 hour before or 2 hours after food. amLODIPine (NORVASC) 2.5 mg tablet TAKE ONE TABLET BY MOUTH ONCE DAILY aspirin 81 mg chewable tablet Take 1 Tab by mouth daily. atorvastatin (LIPITOR) 20 mg tablet TAKE 1 TABLET BY MOUTH ONCE DAILY calcium phosphate trib/vit D3 (CALCIUM PHOSPHATE-VITAMIN D3 [...] Take 1 tablet by mouth as Needed. other medication Take 1 Dose by mouth daily. Medication Name & Strength: Oriana-C Dose(how many): 1000mg (2) Frequency(how often): daukt other medication Take 1 Dose by mouth daily. Medication Name & Strength: Citracal+D Dose(how many): 630mg Frequency(how often): daily prednisone (DELTASONE) 5 mg tablet Take one tablet by mouth twice daily with meals. pseudoephedrine (SUDAFED) 30 mg tablet Take 60 [...] (Thursday, Thursday, Thursday, , Thursday, Thursday). Vitals: 05/17/18 1300 BP: 155/75 Pulse: 69 Resp: 16 Temp: 36.8 C (98.2 F) TempSrc: Oral SpO2: 98% Weight: 94 kg (207 lb 3.2 oz) Height: 162.7 cm (64.06") Body mass index is 35.5 kg/m. Pain Score: Zero Pain Addressed: Patient [...] follows: CMP Latest Ref Rng & Units 05/17/2018 04/09/2018 03/17/2017 01/30/2015 10/07/2014 NA 137 - 147 MMOL/L 137 137 140 - 139 K 3.5 - 5.1 MMOL/L 4.6 4.8 4.4 - 3.9 CL 98 - 110 MMOL/L 104 103 104 - 108 CO2 21 - 30 MMOL/L 30 28 30.0 - 27 GAP 3 - 12 3 6 10 - 4 BUN 7 - 25 MG/DL 23 22 22 - 16 CR 0.4 - 1.24 MG/DL 1.25(H) 1.09 0.9 - 0.98 GLUX 70 - 100 MG/DL 86 96 122 - 107(H) CA 8.5 - 10.6 MG/DL 10.3 10.5 10.3 - 10.1 TP 6.0 - 8.0 G/DL 6.9 7.2 6.9 - 6.1 ALB 3.5 - 5.0 G/DL 3.9 4.0 4.1 - 3.1(L) ALKP 25 - 110 U/L 63 67 62 - 47 ALT 7 - 56 U/L 17 16 21 14 9 TBILI 0.3 - 1.2 MG/DL 0.6 0.5 0.6 - 0.5 GFR >60 mL/min 55(L) >60 82 - >60 GFRAA >60 mL/min >60 >60 - - >60 I have reviewed the patient's magnesium and compared to prior values. The magnesium value is as follows: Lab Results Component Value Date MG 1.9 10/07/2014 MG 1.7 10/06/2014 MG 1.8 10/06/2014 MG 1.7 10/05/2014 MG 1.8 10/05/2014 I have reviewed the patient's PSA and compared to prior values. PSA trend is as follows: Lab Results Component Value Date PSA 0.54 05/17/2018 PSA 2.24 04/09/2018 PSA 1.76 03/18/2018 PSA 0.24 11/23/2017 PSA 0.07 07/27/2017 TESTOSTER <10 (L) 05/17/2018 TESTOSTER <10 (L) 04/09/2018 I reviewed results of bone density test, which are as follows: "IMPRESSION Statistically stable bone mineral density of lumbar [...] testing should be determined according to each patient's clinical status: typically one year after initiation or change of therapy is appropriate, with longer intervals once therapeutic effect is established. In conditions with rapid bone loss, such as glucocorticoid therapy, testing more frequently is appropriate. Finalized by Tim Cyr M.D. on 05/17/2018 1:01 PM. Dictated by Tim Cyr M.D. on 05/17/2018 12:59 PM." Assessment and Plan: Mr. Brown is a 87 y.o. gentleman with metastatic, castrate- resistant prostate cancer and presents for ongoing evaluation and management of this. 1. mCRPC: Reviewed PSA trend, and informed Mr. Brown (and by phone) that this is consistent with biochemical response to treatment. Reviewed bone density test: No osteoporosis but given that he has castrate- resistant prostate cancer I would recommend Denosumab 120 mg SQ q3 months, beginning at the time of his next Lupron. He will obtain dental clearance in the interim. RTC 6 weeks for lab/toxicity check while on ADT + Abiraterone and prednisone 2. Osteopenia (by imaging, although R ankle fracture more clinically consistent with osteoporosis): Denosumab 120 mg SQ q3 months for mCRPC 3. Diarrhea: Grade 1, duspect due to Abiraterone acetate (incidence in literature ~20%). Begin Loperamide 2 mg PO PRN, max of 8 per day 4. Goals: 04/09/18: Mr. Brown voiced a goal to try more cancer treatment with the intent of helping prolong his life but ideally without resulting in significant symptom burden or frequent travel. Total uynu-aw-pdsw time for visit: 20 minutes, all (> 50%) of which was spent in education and counseling with patient in clinic and by phone. Discussed the patient's cancer diagnosis, management, and reviewed goals. IFFS documented in this encounter Plan of Treatment Not on filedocumented as of this encounter Results * PROSTATIC SPECIFIC ANTIGEN-PSA (06/28/2018 10:31 AM CDT) Prostatic 0.54 <6.01 NG/ML [facility] Specific Comment: Antigen REFERENCE RANGES AGEPSA VALUE <50<=1.5 50-54 <=2.0 55-59 <=3.0 60-69 <=4.0 70+<=6.0 Specimen Blood Performing Organization Address City/State/Zipcode Phone Number [facility] [address] [place] [address] * COMPREHENSIVE METABOLIC PANEL (06/28/2018 10:31 AM CDT) Sodium 137 137 - 147 MMOL/L [facility] Potassium 3.9 3.5 - 5.1 MMOL/L [facility] Chloride 104 98 - 110 MMOL/L [...] Non >60 >60 mL/min [facility] Comment: [place] The eGFR is not validated for use in drug dosing adjustments.Continue to use estimated creatinine clearance per dosing reference text.Please contact the Clinical Pharmacist for questions. eGFR >60 >60 mL/min [facility] [place] Comment: The eGFR is not validated for use in drug dosing adjustments.Continue to use estimated creatinine clearance per dosing reference text.Please contact the Clinical Pharmacist for questions. 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
--- OUTSIDE RECORDS SUMMARY | 2018-07-09 11:09 | XMS REPORT | Encounter Summary ---
Author Author [facility] Organization [facility] Address Unknown Phone Unavailable Care Team Providers Care Lubricating Machine Tender Name Role Phone Maldonado Melo PA-C Unavailable Joo Harris MD Unavailable Pamela Gallardo MD PCP Adriana Amin MD 3 Darrell Gorman MD 3 Encounter Details Care Team Description Date Type Department Sofie Perkins RN Other hyperlipidemia 06/23/[address] [facility] [address] [place] [address] Social History Date Tobacco Use Types Packs/Day [...] Comments Procedure Name Priority Date/Time Associated Diagnosis ALT (SGPT) Routine 06/21/2018 Other hyperlipidemia AST (SGOT) Routine 06/21/2018 Other hyperlipidemia LIPID PROFILE Routine 06/21/2018 Other hyperlipidemia documented in this encounter Results * ALT (SGPT) (06/21/2018) ALT (SGPT) 18 [facility] Specimen Blood - Blood Performing Organization Address [facility] Phone Number [facility] [address] [place] [address] * AST (SGOT) (06/21/2018) AST (SGOT) 14 [facility] Specimen Blood - Blood Performing Organization Address [facility] Phone Number [facility] [address] [place] [address] * LIPID PROFILE (06/21/2018) Cholesterol 121 [facility] Triglycerides 76 [facility] HDL 57 [facility] LDL 49 [facility] VLDL [facility] Non HDL [facility] Cholesterol Cholesterol/HDL 2.1 [facility] Ratio Specimen Blood - Blood Narrative Performed At [facility] Pt on Lipitor 20 mg daily Performing Organization Address [facility] Phone Number [facility] [address] [place] [address] documented in this encounter Visit Diagnoses Diagnosis Other hyperlipidemia documented in this encounter
--- OUTSIDE RECORDS SUMMARY | 2018-07-09 11:09 | XMS REPORT | Encounter Summary ---
Author Author [facility] Organization [facility] Address Unknown Phone Unavailable Care Team Providers Care Slat Grader Name Role Phone Maldonado Melo PA-C Unavailable Joo Harris MD Unavailable Pamela Gallardo MD PCP Adriana Amin MD 3 Darrell Gorman MD 3 Reason for Visit * Reason Comments Medication Refill Encounter Details Care Team Description Date Type Department Darrell Velez MD Forwarding Address Unknown Medication Refill 06/12/2018 Refill The [facility] [address] [facility] [place] [address] Social History Date Tobacco Use Types Packs/Day [...]
--- OUTSIDE RECORDS SUMMARY | 2018-07-09 11:10 | XMS REPORT | Encounter Summary ---
Author Author [facility] Organization [facility] Address Unknown Phone Unavailable Care Team Providers Care Counsellors Name Role Phone Maldonado Melo PA-C Unavailable Joo Harris MD Unavailable Pamela Gallardo MD PCP Adriana Amin MD 3 Darrell Gorman MD 3 Reason for Visit * Reason Comments Medication Follow-up Encounter Details Care Team Description Date Type Department Adriana Amin MD [address] [place] [address] [phone] Medication Follow-up 04/20/[address] [phone] Social History Date Tobacco Use Types Packs/Day [...] encounter Miscellaneous Notes * Telephone Encounter - Betty Thomason RN - 04/20/2018 3:43 PM PRINCIPAL BIOSTATISTICIAN Patient left a message checking on status of Zytiga. This RN called [facility] who will be reaching out to patient to set up delivery. Left patient a message with this information. Left call back number to clinic for any other questions or concerns. CIPAL BIOSTATISTICIAN documented in this encounter Plan of Treatment Not on filedocumented as of this encounter Visit Diagnoses Not on filedocumented in this encounter
--- OUTSIDE RECORDS SUMMARY | 2018-07-09 11:10 | XMS REPORT | Encounter Summary ---
Author Author [facility] Organization [facility] Address Unknown Phone Unavailable Care Team Providers Care Prn Physical Therapist Name Role Phone Maldonado Melo PA-C Unavailable Joo Harris MD Unavailable Pamela Gallardo MD PCP Adriana Amin MD 3 Darrell Gorman MD 3 Reason for Visit * Reason Comments Chemotherapy Follow up Encounter Details Care Team Description Date Type Department Shiloh Alcazar PHARMD Chemotherapy Follow up 05/05/2018 Telephone [facility] [address] [place] [phone] Social History Date Tobacco Use Types Packs/Day [...] as of this encounter Progress Notes * Shiloh Alcazar PHARMD - 05/05/2018 9:36 AM BURIAL AGENT Oral Chemotherapy Cycle 1 Toxicity Check Summary of Therapy/Adherence Assessment Darrell Cincinnaticharlee Brown continues on abiraterone for the treatment of prostate cancer. Cycle 1 start date was 04/25/18. Darrell Brown confirms he is taking the medication as prescribed - 1000mg daily on empty stomach. Darrell Brown reports missing 0 doses over the past 2 week(s) not related to toxicity. Patient was re-educated on importance of adherence. No dose adjustments based on toxicity are required at this time. Treatment will continue until progression or unacceptable toxicity. CBC w/Diff Lab Results Component Value Date/Time WBC 7.0 04/09/2018 10:29 AM RBC 3.90 (L) 04/09/2018 10:29 AM HGB 12.5 (L) 04/09/2018 10:29 AM HCT 36.7 (L) 04/09/2018 10:29 AM MCV 94.2 04/09/2018 10:29 AM MCH 32.1 04/09/2018 10:29 AM MCHC 34.0 04/09/2018 10:29 AM RDW 14.1 04/09/2018 10:29 AM PLTCT 289 04/09/2018 10:29 AM MPV 7.5 04/09/2018 10:29 AM Lab Results Component Value Date/Time NEUT 60 04/09/2018 10:29 AM ANC 4.30 04/09/2018 10:29 AM LYMA 23 (L) 04/09/2018 10:29 AM ALC 1.60 04/09/2018 10:29 AM JONES 9 04/09/2018 10:29 AM AMC 0.60 04/09/2018 10:29 AM EOSA 7 (H) 04/09/2018 10:29 AM AEC 0.50 (H) 04/09/2018 10:29 AM BASA 1 04/09/2018 10:29 AM ABC 0.10 04/09/2018 10:29 AM Comprehensive Metabolic Profile Lab Results Component Value Date/Time NA 137 04/09/2018 10:29 AM K 4.8 04/09/2018 10:29 AM CL 103 04/09/2018 10:29 AM CO2 28 04/09/2018 10:29 AM GAP 6 04/09/2018 10:29 AM BUN 22 04/09/2018 10:29 AM CR 1.09 04/09/2018 10:29 AM GLU 96 04/09/2018 10:29 AM GLU 129 (H) 09/04/2006 04:40 AM Lab Results Component Value Date/Time CA 10.5 04/09/2018 10:29 AM PO4 2.1 10/07/2014 04:50 AM ALBUMIN 4.0 04/09/2018 10:29 AM TOTPROT 7.2 04/09/2018 10:29 AM ALKPHOS 67 04/09/2018 10:29 AM AST 16 04/09/2018 10:29 AM ALT 16 04/09/2018 10:29 AM TOTBILI 0.5 04/09/2018 10:29 AM GFR >60 04/09/2018 10:29 AM GFRAA >60 04/09/2018 10:29 AM Serum creatinine: 1.09 mg/dL 04/09/18 1029 Estimated creatinine clearance: 50.6 mL/min Adverse Effects Assessment Darrell Brown is not experiencing any significant adverse effects to this medication regimen. Interaction Check Darrell Brown reports the following medication changes since the last medication history during their education visit: none Drug-drug and drug-food interactions were assessed and reviewed. DDIs were evaluated:there is a category D drug-drug interaction between abiraterone and carvedilol, as abiraterone has the potential to elevate serum carvedilol concentrations due to CYP2D6 enzyme inhibition. This will be monitored by educating the patient regarding the importance of routine BP monitoring, and his BP will be followed closely in clinic. The patient was instructed to speak with their health care provider and/or the oral chemotherapy pharmacist before starting any new drug, including prescription or over the counter, natural / herbal products, or vitamins. Risk Evaluation and Mitigation Strategy (REMS) Assessment No REMS is required for this medication. Followup Plan The patient was encouraged to call the oral chemotherapy pharmacist at [phone] with questions. Re-assessment has been completed. Next reassessment planned for 1 year. Shiloh Alcazar PHARMD Oncology Clinical Pharmacist 05/05/2018 AL AGENT documented in this encounter Plan of Treatment Not on filedocumented as of this encounter Visit Diagnoses Not on filedocumented in this encounter
--- OUTSIDE RECORDS SUMMARY | 2018-07-09 11:10 | XMS REPORT | Encounter Summary ---
Author Author [facility] Organization [facility] Address Unknown Phone Unavailable Care Team Providers Care Intranet Developer Name Role Phone Maldonado Melo PA-C Unavailable Joo Harris MD Unavailable Pamela Gallardo MD PCP Adriana Amin MD 3 Darrell Gorman MD 3 Reason for Visit * Reason Comments Chemotherapy Encounter Details Care Team Description Date Type Department Raymundo Brady PHARMD Chemotherapy 04/12/2018 Documentation The [facility] [address] [place] [phone] Social History Date Tobacco Use Types Packs/Day [...] as of this encounter Progress Notes * Raymundo Brady PHARMD - 04/12/2018 9:11 AM IT SALES REPRESENTATIVE Initial Assessment: Oral Chemotherapy Abiraterone (Zytiga) and Prednisone Darrell Brown is a 87 y.o. male with a diagnosis of metastatic castration- resistant prostate cancer. Indication/Regimen Abiraterone (Zytiga) is being used appropriately for treatment of metastatic castration-resistant prostate cancer. The dosing regimen of 1000 mg (two 500-mg tablets) by mouth once daily is appropriate for Darrell Brown. It is planned to continue until progression or unacceptable toxicity. Abiraterone (Zytiga) is being prescribed in combination with prednisone 5 mg by mouth twice daily. Patient History: Cancer Diagnosis: Metastatic prostate cancer Relevant drug-specific markers: PSA 04/09/2018: 2.24 Past Treatment Plans SUPPORTIVE CARE Plan Name Cycles Start Date Discontinue Date Discontinue Reason Discontinue User OP SUPPORT LEUPROLIDE DEPOT (EVERY 4 MONTHS) 3 of 3 cycles started 10/15/2015 Therapy Complete Deidre Davies, PHARMD Wt Readings from Last 1 Encounters: 04/09/18 95.1 kg (209 lb 9.6 oz) Estimated body surface area is 2.07 meters squared as calculated from the following: Height as of 04/09/18: 162.7 cm (64.06"). Weight as of 04/09/18: 95.1 kg (209 lb 9.6 oz). Allergies: No Known Allergies Baseline Labs: CBC w/Diff Lab Results Component Value Date/Time [...] 04/09/18 1029 Estimated creatinine clearance: 50.6 mL/min status As patient is a male, education will be provided regarding adequate contraception for female partners of reproductive potential and contacting his physician immediately should his partner become . Medication Reconciliation Home Medications Medication Sig abiraterone (ZYTIGA) 500 mg tablet Take 1,000 mg by mouth daily. Take on an empty stomach, at least 1 hour before or 2 hours after food. amLODIPine (NORVASC) 2.5 mg tablet TAKE ONE TABLET BY MOUTH ONCE DAILY aspirin 81 mg chewable tablet Take 1 Tab by mouth daily. atorvastatin (LIPITOR) 20 mg tablet TAKE 1 TABLET BY MOUTH ONCE DAILY calcium carb and citrate-vit D3 (CITRACAL + [...] needed (Thursday, Thursday, Thursday, , Thursday, Thursday). Medication reconciliation is based on the patients most recent medication list in the electronic medical record (EMR) including herbal products and OTC medications. The patient's medication list will be updated during patient education, after speaking with the patient and prior to dispensing the medication. Drug-drug interactions (DDIs) DDIs were evaluated: there is a category D drug-drug interaction between abiraterone and carvedilol, as abiraterone has the potential to elevate serum carvedilol concentrations due to CYP2D6 enzyme inhibition. This will be monitored by educating the patient regarding the importance of routine BP monitoring, and his BP will be followed closely in clinic. Follow up plan: will discuss with Patient and determine if alternative therapy is appropriate. Drug-Food Interactions Drug-food interactions were evaluated. Doses should be administered on an empty stomach, at least 1 hour before and 2 hours after food. Contraindications No contraindications to therapy were identified as there are no contraindications in the prescribing information. Safety Precautions The following safety precautions to the use of Abiraterone (Zytiga) were reviewed: Adrenocortical insufficiency Hepatotoxicity Mineralocorticoid excess (hypertension, hypokalemia, fluid retention) Cardiovascular disease Safety precautions for this medication have been reviewed. No concerns have been identified. Risk Evaluation and Mitigation Strategy (REMS) Assessment No REMS is required for this medication. Initial therapy assessment has been completed and the patient will be contacted to complete education on their regimen. Raymundo Brady PHARMD Clinical Pharmacist 04/12/18 SALES REPRESENTATIVE documented in this encounter Plan of Treatment Not on filedocumented as of this encounter Visit Diagnoses Not on filedocumented in this encounter
--- OUTSIDE RECORDS SUMMARY | 2018-07-09 11:10 | XMS REPORT | Encounter Summary ---
Author Author [facility] Address Unknown Phone Unavailable Care Team Providers Care Fancy Wire Drawer Name Role Phone Maldonado Melo PA-C Unavailable Joo Harris MD Unavailable Pamela Gallardo MD PCP Adriana Amin MD 3 Darrell Gorman MD 3 Reason for Visit * Reason Comments Chemotherapy Follow up Encounter Details Care Team Description Date Type Department Raymundo Brady PHARMD Chemotherapy Follow up 04/28/2018 Telephone [facility] [address] [place] [phone] Social History Date Tobacco Use Types Packs/Day [...] encounter Miscellaneous Notes * Telephone Encounter - Raymundo Brady PHARMD - 04/28/2018 10:56 AM PIPE LAYER HELPER Attempted to call Darrell Licea Kevin to perform a cycle 1 toxicity assessment. Mr. Brown reports that he just started taking abiraterone on 04/25/18, and has not yet experienced adverse effects. Will call Mr. Brown next week to perform cycle 1 toxicity assessment, as he has had fewer than 5 doses of the medication. Provided Mr. Brown with our contact information at [phone]. Raymundo Brady, SABRINAD Oncology Clinical Pharmacist 04/28/2018 LAYER HELPER documented in this encounter Plan of Treatment Not on filedocumented as of this encounter Visit Diagnoses Not on filedocumented in this encounter
--- OUTSIDE RECORDS SUMMARY | 2018-07-09 11:10 | XMS REPORT | Encounter Summary ---
Author Author [facility] Organization [facility] Address Unknown Phone Unavailable Care Team Providers Care Health Analyst Name Role Phone Maldonado Melo PA-C Unavailable Joo Harris MD Unavailable Pamela Gallardo MD PCP Adriana Amin MD 3 Darrell Gorman MD 3 Encounter Details Care Team Description Date Type Department Adriana Amin MD [address] [place] [address] [phone] Hypogonadism, male (Primary Dx); Prostate cancer metastatic to bone (HCC); Prostate cancer (HCC) 05/17/2018 Lab Only The [address] [phone] Social History Date Tobacco Use Types Packs/Day [...] Comments Procedure Name Priority Date/Time Associated Diagnosis CBC AND DIFF Routine 05/17/2018 Prostate cancer (HCC) 10:53 AM HOTEL ASSISTANT GENERAL MANAGER TESTOSTERONE,TOTAL Routine 05/17/2018 Hypogonadism, male 10:53 AM HOTEL ASSISTANT GENERAL MANAGER Prostate cancer metastatic to bone (HCC) Prostate cancer (HCC) PROSTATIC SPECIFIC Routine 05/17/2018 Hypogonadism, male ANTIGEN-PSA 10:53 AM HOTEL ASSISTANT GENERAL MANAGER Prostate cancer metastatic to bone (HCC) Prostate cancer (HCC) COMPREHENSIVE METABOLIC Routine 05/17/2018 Hypogonadism, male PANEL 10:53 AM HOTEL ASSISTANT GENERAL MANAGER Prostate cancer metastatic to bone (HCC) Prostate cancer (HCC) documented in this encounter Results * CBC AND DIFF (05/17/2018 10:53 AM HOTEL ASSISTANT GENERAL MANAGER) White Blood 8.0 4.5 - 11.0 K/UL [facility] Cells RBC 3.92 (L) 4.4 - 5.5 M/UL [facility] Hemoglobin 12.9 (L) 13.5 - 16.5 GM/DL [facility] Hematocrit 36.9 (L) 40 - 50 [...] Organization Address City/State/Zipcode Phone Number [facility] [address] [place] [address] * TESTOSTERONE,TOTAL (05/17/2018 10:53 AM HOTEL ASSISTANT GENERAL MANAGER) Pathologist [facility] Testosterone,To <10 (L) 270 - 1070 NG/DL [facility] ulises Specimen Blood Performing Organization Address [facility] Phone Number [facility] [address] [place] [address] * COMPREHENSIVE METABOLIC PANEL (05/17/2018 10:53 AM HOTEL ASSISTANT GENERAL MANAGER) [facility] Sodium 137 137 - 147 MMOL/L [facility] Potassium 4.6 3.5 - 5.1 MMOL/L [facility] Chloride 104 98 - 110 MMOL/L [facility] Glucose 86 70 - 100 MG/DL [facility] Blood Urea 23 7 - 25 MG/DL [facility] Nitrogen Creatinine 1.25 (H) 0.4 - 1.24 MG/DL [facility] Calcium 10.3 8.5 - 10.6 MG/DL [facility] Total Protein 6.9 6.0 - 8.0 G/DL [facility] Total Bilirubin 0.6 0.3 - 1.2 MG/DL [facility] Albumin 3.9 3.5 - 5.0 G/DL [facility] Alk Phosphatase 63 25 - 110 U/L [facility] AST (SGOT) 13 7 - 40 U/L [facility] CO2 30 21 - 30 MMOL/L [facility] ALT (SGPT) 17 7 - 56 U/L [facility] Anion Gap 3 3 - 12 [facility] eGFR Non 55 (L) >60 mL/min [facility] Comment: Greek The eGFR is not validated for use in drug dosing adjustments.Continue to use estimated creatinine clearance per dosing reference text.Please contact the Clinical Pharmacist for questions. eGFR >60 >60 mL/min [facility] Greek Comment: The eGFR is not validated for use in drug dosing adjustments.Continue to use estimated creatinine clearance per dosing reference text.Please contact the Clinical Pharmacist for questions. Specimen Blood Performing Organization Address [facility]/Zipcode Phone Number [facility] [address] [place] [address] * PROSTATIC SPECIFIC ANTIGEN-PSA (05/17/2018 10:53 AM HOTEL ASSISTANT GENERAL MANAGER) [facility] Prostatic 0.54 <6.01 NG/ML [facility] Specific Comment: Antigen REFERENCE RANGES AGEPSA VALUE <50<=1.5 50-54 <=2.0 55-59 <=3.0 60-69 <=4.0 70+<=6.0 Specimen Blood Performing Organization Address City/State/Zipcode Phone Number [facility] [address] [place] [address] documented in this encounter Visit Diagnoses Diagnosis Hypogonadism, male - Primary 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
--- OUTSIDE RECORDS SUMMARY | 2018-07-09 11:10 | XMS REPORT | Encounter Summary ---
Author Author [facility] Organization [facility] Address Unknown Phone Unavailable Care Team Providers Care Estimator Lumber Name Role Phone Maldonado Melo PA-C Unavailable Joo Harris MD Unavailable Pamela Gallardo MD PCP Adriana Amin MD 3 Darrell Gorman MD 3 Encounter Details Care Team Description Date Type Department Leonila Shepard 04/13/2018 Documentation The [address] [id number] Social History Date Tobacco Use Types Packs/Day [...] as of this encounter Progress Notes * Leonila Shepard - 04/13/2018 9:04 AM CLIENT SALES AND SERVICE OFFICER The Prior Authorization for Zytiga was submitted for Darrell Brown via CM. Will continue to follow. Leonila Shepard Pharmacy Patient Advocate NT SALES AND SERVICE OFFICER documented in this encounter Plan of Treatment Not on filedocumented as of this encounter Visit Diagnoses Not on filedocumented in this encounter
--- OUTSIDE RECORDS SUMMARY | 2018-07-09 11:10 | XMS REPORT | Encounter Summary ---
Author Author [facility] Organization [facility] Address Unknown Phone Unavailable Care Team Providers Care Aluminum Sheet Cutter Name Role Phone Maldonado Melo PA-C Unavailable Joo Harris MD Unavailable Pamela Gallardo MD PCP Adriana Amin MD 3 Darrell Gorman MD 3 Reason for Visit * Reason Comments Chemotherapy Follow up Encounter Details Care Team Description Date Type Department Raymundo Brady PHARMD Chemotherapy Follow up 04/12/2018 Telephone [facility] [address] [place] [phone] Social History Date Tobacco Use Types Packs/Day [...] Telephone Encounter - Raymundo Brady PHARMD - 04/12/2018 9:[address] STREETCAR STARTER Oral Specialty Medication Counseling Abiraterone (Zytiga) and Prednisone Darrell Licea Brown was provided medication education regarding his new oral hormonal agent. I reviewed the role of [facility] specialty pharmacy, including access to medication assistance specialists if needed. How to take the medication: Darrell Brown was educated on abiraterone (Zytiga) and prednisone for metastatic prostate cancer; the indication for treatment, dose, route, frequency and duration of therapy were reviewed. Directions: Abiraterone (Zytiga) 1000 mg (two 500mg tablets) by mouth on an empty stomach, at least 1 hour before and 2 hours after food, once daily until unacceptable toxicity or lack of efficacy. Take in combination with prednisone 5 mg by mouth twice daily. Patient was educated to swallow tablets whole and not to crush, chew or open capsules. How to Store Medication: Darrell Brown was educated to store abiraterone (Zytiga) at room temperature in a safe place away from humidity, pets, and children. I instructed the patient that it was okay to store abiraterone (Zytiga) in a pill box, if needed. I recommended if family members would be handling the medication, they should use gloves. Additionally, I recommended cleaning any surfaces touched by abiraterone (Zytiga) with bleach, if possible. Adherence: Patient was educated on the importance of adherence and that the consequences of non-adherence could include disease progression. The patient's ability to be adherent with drug therapies was discussed and the patient was provided options for tools/resources that promote adherence to therapy. For Darrell Brown, alarms, calendars, pillboxes, and technology (reminder apps) were recommended and/or provided. How to Manage Missed Doses: I instructed the patient that if a dose is missed, he should take it as soon as he remembers on the same day and to return to normally scheduled doses the following day; however, not to take extra tablets to make up for the missed dose. If tablets are vomited up, I recommended not taking additional doses that day. Instead, resume the medication at the next scheduled dose. Contraindications / Safety Precautions / Adverse Effects: Contraindications to therapy, safety precautions, and common adverse effects ( listed below) were discussed with the patient. I explained that most patients do NOT experience all these side effects and that this list was not inclusive. I instructed patient to report any adverse effects to their doctor, pharmacist or nurse. ? Mineralocorticoid excess (hypertension, hypokalemia, fluid retention) ? Fatigue or insomnia ? Excessive bruising ? Hypertriglyceridemia, hyperglycemia ? Hot flashes ? Constipation, diarrhea, or dyspepsia ? Myalgia ? Transaminitis REMS Program: No REMS is required for this medication. Drug-Drug Interactions: A medication history and reconciliation was performed (including prescription medications, supplements, over the counter medications, and herbal products). The medication list was updated and the patients current medication list is included below. I stressed the importance of maintaining an accurate medication list and informing their medical team prior to taking any new medications. Home Medications Medication Sig abiraterone (ZYTIGA) 500 [...] needed (Thursday, Thursday, Thursday, , Thursday, Thursday). Drug-drug and drug-food interactions with the new therapy were assessed and reviewed with the patient. DDIs were evaluated: there is a category D drug-drug interaction between abiraterone and carvedilol, as abiraterone has the potential to elevate serum carvedilol concentrations due to CYP2D6 enzyme inhibition. This will be monitored by educating the patient regarding the importance of routine BP monitoring, and his BP will be followed closely in clinic. Reproductive Concerns: Reproductive concerns were reviewed with the patient. As patient is a male, education was provided regarding adequate contraception for female partners of reproductive potential and contacting his physician immediately should his partner become . What to do with any unused or medications: Darrell Brown was instructed to return any unused or medication to a disposal bin at one of the retail pharmacy locations or to utilize a community drug take back program. Instructed the patient not to flush the medication down the toilet. Monitoring: Monitoring and follow-up plan was discussed with patient. Darrell Brown was instructed to contact the oral chemotherapy/specialty medication pharmacist at [phone] if they have any questions or concerns regarding their medication therapy. Informed the patient that we would send the prescription to a specialty pharmacy and that the pharmacy would be calling the patient to schedule a shipment. Emphasized if their phone calls were not answered, the specialty pharmacy would not ship the medication. This medication is considered low risk per our internal oral chemotherapy risk categorization and the patient will be contacted for education, toxicity check at 2 weeks, and reassessment annually, if applicable (low risk monitoring). Patient was given the opportunity to ask questions. Patient verbalized understanding, agreed with the plan and had no questions or concerns regarding therapy. Raymundo Brady PHARMD Clinical Pharmacist 04/12/18 ETCAR STARTER documented in this encounter Plan of Treatment Not on filedocumented as of this encounter Visit Diagnoses Not on filedocumented in this encounter
--- OUTSIDE RECORDS SUMMARY | 2018-07-09 11:10 | XMS REPORT | Encounter Summary ---
Author Author [facility] Organization [facility] Address Unknown Phone Unavailable Care Team Providers Care Load Dispatcher Name Role Phone Maldonado Melo PA-C Unavailable Joo Harris MD Unavailable Pamela Gallardo MD PCP Adriana Amin MD 3 Darrell Gorman MD 3 Encounter Details Care Team Description Date Type Department Leonila Shepard 04/14/2018 Documentation The [address] [phone] Social History Date Tobacco Use Types Packs/Day [...] encounter Progress Notes * Leonila Shepard - 04/14/2018 4:12 PM PI/SENIOR RESEARCH ASSOCIATE The Prior Authorization for Zytiga was approved for Darrell Brown from to 04/05/19. The copay is $0. Copay assistance of $6500 was obtained for the patient using PAF and now the copay is $0. I left Darrell Brown a voicemail to set up the delivery. Leonila Shepard Pharmacy Patient Advocate /SENIOR RESEARCH ASSOCIATE documented in this encounter Plan of Treatment Not on filedocumented as of this encounter Visit Diagnoses Not on filedocumented in this encounter
--- OUTSIDE RECORDS SUMMARY | 2018-07-09 11:13 | XMS REPORT | CCD ---
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 Role Phone PP Unavailable CCM Unavailable Summary Purpose Interface Exchange Insurance Providers Payer name Policy type / Coverage type Covered democrat ID Effective Begin Date Effective End Date WPS Medicare Part B Medicare Part B [id number] Unknown [facility] Medicare Part B [id number] Unknown Family history Father Diagnosis Age At [...] Unknown Retired 11/21/[address]: 0169494 Former smoker Quit September 2014 11/21/[address]: 366723 Currently drinks alcohol 11/21/2015 Has the patient ever used illegal drugs? Unknown Has never used illegal drugs 11/21/2015 Allergies, Adverse Reactions, Alerts Substance Reaction Codes Entered Date Inactivated Date Status * NO KNOWN DRUG ALLERGIES Unknown 11/21/2015 No Inactive Date Active Past Medical History Illness Codes Condition Status Onset Date Resolved Date Acute laryngopharyngitis ICD-9: 465.0 ICD-10: J06.0 Active 06/16/2018 Unknown [facility] (current) use of anticoagulants ICD-9: V58.61 ICD-10: Z79.01 Active 06/16/2016 Unknown Other allergic rhinitis ICD-9: 477.8 ICD-10: J30.89 Active 06/16/2018 Unknown Acute upper respiratory infection, unspecified ICD-9: 465.9 ICD-10: J06.9 Active 04/23/2018 Unknown Cough ICD-9: 786.2 ICD-10: R05 Active 04/23/2018 Unknown Essential (primary) hypertension ICD-9: 401.1 ICD-10: I10 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/2016 Unknown Malignant neoplasm of prostate ICD-9: 185 ICD-10: C61 Active 04/12/2018 Unknown Personal history of malignant neoplasm of prostate ICD-9: V10.46 ICD-10: Z85.46 Active 04/12/2018 Unknown Cellulitis of right lower limb ICD-9: 682.6 ICD-10: L03.115 Active 02/26/2018 Unknown Cellulitis of left lower limb ICD-9: 682.7 ICD-10: L03.116 Active 01/28/2018 Unknown Encounter for immunization ICD-9: V04.81 ICD-10: Z23 Active 01/02/2016 Unknown Nocturia ICD-9: 788.43 ICD-10: R35.1 Active [...] Problems Condition Codes Effective Dates Condition Status Acute laryngopharyngitis ICD-9: 465.0 ICD-10: J06.0 06/16/2018 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 ICD-9: V58.61 ICD-10: Z79.01 06/16/2016 Active Other allergic rhinitis ICD-9: 477.8 ICD-10: J30.89 06/16/2018 Active Acute upper respiratory infection, unspecified ICD-9: 465.9 ICD-10: J06.9 04/23/2018 Active Cough ICD-9: 786.2 ICD-10: R05 04/23/2018 Active Essential (primary) hypertension ICD-9: 401.1 ICD-10: I10 01/30/2016 Active Malignant neoplasm of prostate ICD-9: 185 ICD-10: C61 04/12/2018 Active Personal history of malignant neoplasm of prostate ICD-9: V10.46 ICD-10: Z85.46 04/12/2018 Active Cellulitis of right lower limb ICD-9: 682.6 ICD-10: L03.115 02/26/2018 Active Cellulitis of left lower limb ICD-9: 682.7 ICD-10: L03.116 01/28/2018 Active Encounter for immunization ICD-9: V04.81 ICD-10: Z23 01/02/2016 Active Nocturia ICD-9: 788.43 ICD-10: R35.1 12/29/2017 [...] Start Date Stop Date Status Fill Instructions lisinopril 20 mg tablet RxNorm: 364986 TAKE 1 TABLET BY MOUTH ONCE DAILY 07/05/2018 No Stop Date Active mupirocin 2 % topical ointment RxNorm: 823806 1 Application TOP BID 06/17/2018 No Stop Date Active amoxicillin 500 mg capsule RxNorm: 425509 1 Capsule(s) PO TID 06/17/2018 06/16/2018 Inactive amoxicillin 500 mg capsule RxNorm: 877947 1 Capsule(s) PO TID 06/17/2018 06/26/2018 Inactive Kenalog 40 mg/mL suspension for injection RxNorm: 1212049 Milliliter(s) Inj 06/16/2018 06/16/2018 Inactive Kenalog 40 mg/mL suspension for injection RxNorm: 0550469 Milliliter(s) Inj 04/23/2018 04/23/2018 Inactive Keflex 500 mg capsule RxNorm: 686788 1 Capsule(s) PO TID 201804/29/2018 Inactive Keflex 500 mg capsule RxNorm: 694769 1 Capsule(s) PO TID 201703/04/2018 Inactive Bactrim DS 800 mg-160 mg tablet RxNorm: 529762 1 Tablet(s) PO BID 01/28/2018 02/06/2018 Inactive warfarin 5 mg tablet RxNorm: 190089 1 Tablet(s) PO UD on Thursday - goal for INR is 2.3 12/25/2017 08/21/2018 Active warfarin 7.5 mg tablet RxNorm: 713249 1 Tablet(s) PO daily except Sat take 5mg 12/25/2017 12/19/2018 Active Lovenox 40 mg/0.4 mL subcutaneous syringe RxNorm: 968062 1 Milliliter(s) SQ BID 10/14/2017 No Stop Date Active Holding coumadin x 5 days. Start the day after stopping coumadin for procedure. Hold the day of surgery. The day after surgery resume BID x 4 days. Vesicare 10 mg tablet RxNorm: 326381 1 Tablet(s) PO QPM 2017 No Stop Date Active lisinopril 20 mg tablet RxNorm: 437545 TAKE ONE TABLET BY MOUTH ONCE DAILY 06/23/2017 07/04/2018 Inactive warfarin 5 mg tablet RxNorm: 479536 1 Tablet(s) PO UD on Thursday and - goal for INR is 2.3 02/11/2017 10/08/2017 Inactive lisinopril 20 mg tablet RxNorm: 518696 1 Tablet(s) PO daily 06/22/2017 Inactive warfarin 7.5 mg tablet RxNorm: 419151 1 Tablet(s) PO daily except 10/14/2016 10/08/2017 Inactive warfarin 5 mg tablet RxNorm: 028339 1 Tablet(s) PO UD on Thursday and - goal for INR is 2.3 10/14/2016 02/10/2017 Inactive warfarin 5 mg tablet RxNorm: 327806 1 Tablet(s) PO UD on Thursday10/14/2016 10/13/2016 Inactive warfarin 7.5 mg tablet RxNorm: 357097 1 Tablet(s) PO daily 10/13/2016 Inactive warfarin 7.5 mg tablet RxNorm: 657595 1 Tablet(s) PO daily 03/201708/17/2016 Inactive Norvasc 5 mg tablet RxNorm: 153347 1 Tablet(s) PO QPM 201512/14/2016 Inactive iron 65 mg RxNorm: 1 PO daily No Start Date Active aspirin 81 mg chewable tablet RxNorm: 344790 1 Tablet(s) PO daily No Start Date Active amlodipine 2.5 mg tablet RxNorm: 107228 1 Tablet(s) PO daily No Start Date Active PreserVision AREDS 2 oral RxNorm: 4872655 oral No Start Date Active prednisone 5 mg tablet RxNorm: 036013 1 Tablet(s) PO BID No Start Date Active Citracal + D3 (calcium phosphate) oral RxNorm: 3130436 oral No Start Date Active Centrum Silver tablet RxNorm: 1 Tablet(s) PO daily No Start Date Active Zytiga 500 mg tablet RxNorm: 3391157 2 Tablet(s) PO daily No Start Date Active Colace 100 mg capsule RxNorm: 9770615 1-2 Capsule(s) PO as needed constipation No Start Date Active Oriana-C ER 1,000 mg-200 mg tablet,extended release RxNorm: 024583 1 Tablet(s) PO BID No Start Date Active carvedilol 6.25 mg tablet RxNorm: 239241 1 Tablet(s) PO BID No Start Date Active Imodium A-D 2 mg tablet RxNorm: 368947 1 Tablet(s) PO as needed diarrhea No Start Date Active atorvastatin 20 mg tablet RxNorm: 397667 1 Tablet(s) PO daily No Start Date Active carvedilol 6.25 mg tablet RxNorm: 470676 1 Tablet(s) PO BID No Start Date Active Lupron Depot intramuscular RxNorm: 153888 intramuscular No Start Date Active Lovenox 40 mg/0.4 mL subcutaneous syringe RxNorm: 131067 1 Milliliter(s) SQ BID No Start Date 10/13/2017 Inactive Holding coumadin x 5 days. Start the day after stopping coumadin for procedure. Hold the day of surgery. The day after surgery resume BID x 4 days. warfarin 5 mg tablet RxNorm: 199329 1 Tablet(s) PO every other day No Start Date 10/13/2016 Inactive warfarin 7.5 mg tablet RxNorm: 340140 1 Tablet(s) PO every other day No Start Date 07/15/2016 Inactive lisinopril 20 mg tablet RxNorm: 486141 1 Tablet(s) PO daily No Start Date 12/28/2016 Inactive clopidogrel 75 mg tablet RxNorm: 099394 1 Tablet(s) PO daily No Start Date 03/10/2016 Inactive Medication Administered Medication Codes Instructions Start Date Status Kenalog 40 mg/mL suspension for injection RxNorm: 2701766 Milliliter 06/16/2018 No longer Active Kenalog 40 mg/mL suspension for injection RxNorm: 9614414 Milliliter 04/23/2018 No longer Active Immunizations Vaccine Codes Date Status Influenza CVX: 141 01/04/2018 completed Influenza CVX: 141 01/03/2016 completed Assessments Condition Codes Effective Dates Acute laryngopharyngitis ICD-10: J06.0 ICD-9: 465.0 06/16/2018 [facility] (current) use of anticoagulants ICD-10: Z79.01 ICD-9: V58.61 06/16/2018 Other allergic rhinitis ICD-10: J30.89 ICD-9: 477.8 06/16/2018 Cough ICD-10: R05 ICD-9: 786.2 04/23/2018 Acute upper respiratory infection, unspecified ICD-10: J06.9 ICD-9: 465.9 04/23/2018 Personal history of malignant neoplasm of prostate ICD-10: Z85.46 ICD-9: V10.46 04/12/2018 Malignant neoplasm of prostate ICD-10: C61 ICD-9: 185 04/12/2018 Essential (primary) hypertension ICD-10: I10 ICD-9: 401.1 04/12/2018 Cellulitis of right lower limb ICD-10: L03.115 ICD-9: 682.6 03/08/2018 Cellulitis of left lower limb ICD-10: L03.116 ICD-9: 682.7 01/28/2018 Encounter for immunization ICD-10: Z23 ICD-9: V04.81 01/04/2018 Nocturia ICD-10: R35.1 ICD-9: 788.43 12/29/2017 Urge [...] Visit Reason For Visit Effective Dates Notes sinus congestion 06/16/2018 sinus congestion 04/23/2018 hypertension 04/12/2018 skin lesion 03/08/2018 skin lesion 03/02/2018 skin lesion 02/26/2018 foot pain 01/28/2018 vaccination against influenza 01/04/2018 nocturia 12/29/2017 Hospital Follow Up 09/29/2017 hypertension 08/11/2017 hypertension 03/16/2017 hypertension 12/15/2016 anemia 11/07/2016 hypertension 10/14/2016 hypertension 09/10/2016 hematuria 07/08/2016 hypertension 06/16/2016 hypertension 01/31/2016 hypertension 01/03/2016 hypertension 11/21/2015 Results Observation Observation Code Item Item Code Result Date Pt Pjw6768 PT 31.1 seconds 07/07/2018 Pt Sab4847 INR 3.0 07/07/2018 Pt Jck6776 Low Intensity - 1.5-2.0 07/07/2018 Pt Fnc5679 Mod intensity - 2.0-3.0 07/07/2018 Pt Pxc9754 Hi intensity - 3.0-4.0 07/07/2018 Pt Guk5106 PT 19.1 seconds 06/29/2018 Pt Vzp5476 INR 1.7 06/29/2018 Pt Jbg5658 Low Intensity - 1.5-2.0 06/29/2018 Pt Ggu7680 Mod intensity - 2.0-3.0 06/29/2018 Pt Sfi8133 Hi intensity - 3.0-4.0 06/29/2018 Pt Iuh8255 PT 17.3 seconds 06/16/2018 Pt Lzw3615 INR 1.5 06/16/2018 Pt Bom3532 Low Intensity - 1.5-2.0 06/16/2018 Pt Wlg8465 Mod intensity - 2.0-3.0 06/16/2018 Pt Rjv8349 Hi intensity - 3.0-4.0 06/16/2018 C A/B FLU 0582307 Influenza A Scr Negative 06/16/2018 C A/B FLU 4531362 Influenza B Scr Negative 06/16/2018 C A/B FLU 7146042 Influenza Intrp B AG: PRID:PT:NOSE:NOM:IF See Footnote 06/16/2018 Pt Ydw3230 PT 14.3 seconds 06/11/2018 Pt Wxf9872 INR 1.1 06/11/2018 Pt Pqr1615 Low Intensity - 1.5-2.0 06/11/2018 Pt Umd6671 Mod intensity - 2.0-3.0 06/11/2018 Pt Gmr9599 Hi intensity - 3.0-4.0 06/11/2018 Pt Kkh5953 PT 25.1 seconds 05/06/2018 Pt Xqh9097 INR 2.3 05/06/2018 Pt Leg3310 Low Intensity - 1.5-2.0 05/06/2018 Pt Xyi8159 Mod intensity - 2.0-3.0 05/06/2018 Pt Lzo9885 Hi intensity - 3.0-4.0 05/06/2018 Pt Rqf7568 PT 28.0 seconds 04/12/2018 Pt Tmh6606 INR 2.7 04/12/2018 Pt Lcy3069 Low Intensity - 1.5-2.0 04/12/2018 Pt Vfi9457 Mod intensity - 2.0-3.0 04/12/2018 Pt Fjl1072 Hi intensity - 3.0-4.0 04/12/2018 Pt Oqh6704 PT 24.4 seconds 03/03/2018 Pt Kod4916 INR 2.2 03/03/2018 Pt Ufb1218 Low Intensity - 1.5-2.0 03/03/2018 Pt Bcu9417 Mod intensity - 2.0-3.0 03/03/2018 Pt Xkc9543 Hi intensity - 3.0-4.0 03/03/2018 Pt Wuw6881 PT 28.9 seconds 02/15/2018 Pt Hgi6430 INR 2.8 02/15/2018 Pt Dhn5489 Low Intensity - 1.5-2.0 02/15/2018 Pt Iys3245 Mod intensity - 2.0-3.0 02/15/2018 Pt Ueg2404 Hi intensity - 3.0-4.0 02/15/2018 Pt Eny4670 PT 27.2 seconds 02/02/2018 Pt Dvj9746 INR 2.6 02/02/2018 Pt Lhn1260 Low Intensity - 1.5-2.0 02/02/2018 Pt Vjv1667 Mod intensity - 2.0-3.0 02/02/2018 Pt Hsd5945 Hi intensity - 3.0-4.0 02/02/2018 Pt Nvd1792 PT 18.2 seconds 01/28/2018 Pt Fmm1512 INR 1.6 01/28/2018 Pt Smf1294 Low Intensity - 1.5-2.0 01/28/2018 Pt Aax5075 Mod intensity - 2.0-3.0 01/28/2018 Pt Weo8605 Hi intensity - 3.0-4.0 01/28/2018 Pt Dct6515 PT 19.8 seconds 01/22/2018 Pt Kyg6787 INR 1.7 01/22/2018 Pt Zhn8927 Low Intensity - 1.5-2.0 01/22/2018 Pt Pgp7056 Mod intensity - 2.0-3.0 01/22/2018 Pt Qcw8674 Hi intensity - 3.0-4.0 01/22/2018 Pt Xan5114 PT 38.3 seconds 01/15/2018 Pt Aiy0817 INR 3.8 01/15/2018 Pt Qqy3098 Low Intensity - 1.5-2.0 01/15/2018 Pt Our6456 Mod intensity - 2.0-3.0 01/15/2018 Pt Yjc1748 Hi intensity - 3.0-4.0 01/15/2018 Pt Dds2249 PT 27.1 seconds 01/05/2018 Pt Mie2711 INR 2.5 01/05/2018 Pt Gmg1068 Low Intensity - 1.5-2.0 01/05/2018 Pt Wpz5925 Mod intensity - 2.0-3.0 01/05/2018 Pt Luj4461 Hi intensity - 3.0-4.0 01/05/2018 Pt Oiy9593 PT 27.2 seconds 12/25/2017 Pt Mvg2911 INR 2.5 12/25/2017 Pt Hqe1394 Low Intensity - 1.5-2.0 12/25/2017 Pt Toa5603 Mod intensity - 2.0-3.0 12/25/2017 Pt Rot5992 Hi intensity - 3.0-4.0 12/25/2017 Pt Dxm3773 PT 22.2 seconds 12/09/2017 Pt Dlq7220 INR 2.0 12/09/2017 Pt Uzh4162 Low Intensity - 1.5-2.0 12/09/2017 Pt Ocf9889 Mod intensity - 2.0-3.0 12/09/2017 Pt Fvg3233 Hi intensity - 3.0-4.0 12/09/2017 Pt Npi3860 PT 20.5 seconds 11/27/2017 Pt Dhb8516 INR 1.8 11/27/2017 Pt Ufi3011 Low Intensity - 1.5-2.0 11/27/2017 Pt Nvd3156 Mod intensity - 2.0-3.0 11/27/2017 Pt Cpy0015 Hi intensity - 3.0-4.0 11/27/2017 Pt Wuw0270 PT 16.8 seconds 11/23/2017 Pt Ioy0455 INR 1.4 11/23/2017 Pt Efq0008 Low Intensity - 1.5-2.0 11/23/2017 Pt Rfe7327 Mod intensity - 2.0-3.0 11/23/2017 Pt Lfh4813 Hi intensity - 3.0-4.0 11/23/2017 Pt Xnv0478 PT 13.4 seconds 11/20/2017 Pt Ozq8905 INR 1.1 11/20/2017 Pt Qax6700 Low Intensity - 1.5-2.0 11/20/2017 Pt Quc2224 Mod intensity - 2.0-3.0 11/20/2017 Pt Jsg6286 Hi intensity - 3.0-4.0 11/20/2017 Pt Yqp3687 PT 29.3 seconds 09/22/2017 Pt Gpb5671 INR 2.7 09/22/2017 Pt Tcu7982 Low Intensity - 1.5-2.0 09/22/2017 Pt Ahb2572 Mod intensity - 2.0-3.0 09/22/2017 Pt Twb4051 Hi intensity - 3.0-4.0 09/22/2017 Pt Yjo7826 PT 24.6 seconds 08/27/2017 Pt Loy5394 INR 2.2 08/27/2017 Pt Gwe0539 Low Intensity - 1.5-2.0 08/27/2017 Pt Xty2241 Mod intensity - 2.0-3.0 08/27/2017 Pt Opw5026 Hi intensity - 3.0-4.0 08/27/2017 Pt Klf7192 PT 24.9 seconds 08/03/2017 Pt Oww7475 INR 2.3 08/03/2017 Pt Woh9418 Low Intensity - 1.5-2.0 08/03/2017 Pt Pgu2491 Mod intensity - 2.0-3.0 08/03/2017 Pt Lsf8168 Hi intensity - 3.0-4.0 08/03/2017 Pt Vwj6866 PT 24.4 seconds 06/17/2017 Pt Gog6096 INR 2.2 06/17/2017 Pt Axb5331 Low Intensity - 1.5-2.0 06/17/2017 Pt Bbh9098 Mod intensity - 2.0-3.0 06/17/2017 Pt Ozi5042 Hi intensity - 3.0-4.0 06/17/2017 Pt Asu2145 PT 26.8 seconds 06/01/2017 Pt Zqt5458 INR 2.5 06/01/2017 Pt Rja0963 Low Intensity - 1.5-2.0 06/01/2017 Pt Veo6790 Mod intensity - 2.0-3.0 06/01/2017 Pt Odv0538 Hi intensity - 3.0-4.0 06/01/2017 Pt Csr8358 PT 18.8 seconds 05/18/2017 Pt Pcc6947 INR 1.6 05/18/2017 Pt Zwt1949 Low Intensity - 1.5-2.0 05/18/2017 Pt Pwv0841 Mod intensity - 2.0-3.0 05/18/2017 Pt Hjy3570 Hi intensity - 3.0-4.0 05/18/2017 Pt Ncw4778 PT 18.6 seconds 04/27/2017 Pt Ddz6023 INR 1.6 04/27/2017 Pt Jsb9998 Low Intensity - 1.5-2.0 04/27/2017 Pt Pmt1717 Mod intensity - 2.0-3.0 04/27/2017 Pt Ont2079 Hi intensity - 3.0-4.0 04/27/2017 Pt Peq1999 PT 26.1 seconds 04/13/2017 Pt Gcn3532 INR 2.4 04/13/2017 Pt Hbe4259 Low Intensity - 1.5-2.0 04/13/2017 Pt Uol1114 Mod intensity - 2.0-3.0 04/13/2017 Pt Qsj0700 Hi intensity - 3.0-4.0 04/13/2017 Comp Metabolic Gne225 NA 140 mEq/L 03/17/2017 Comp Metabolic Nsz325 K 4.4 mEq/L 03/17/2017 Comp Metabolic Qoq974 CL 104 mEq/L 03/17/2017 Comp Metabolic Cbk046 CO2 30.0 mEq/L 03/17/2017 Comp Metabolic Igy296 ANION GAP 10 03/17/2017 Comp Metabolic Uyz627 GLUCOSE 122 mg/dL 03/17/2017 Comp Metabolic Jej081 Creat 0.9 mg/dL 03/17/2017 Comp Metabolic Epg719 eGFR 82 ml/min/1.73m2 03/17/2017 Comp Metabolic Uiy114 BUN 22 mg/dL 03/17/2017 Comp Metabolic Ila105 B/C Ratio 23.7 Ratio 03/17/2017 Comp Metabolic Cin959 CALCIUM 10.3 mg/dL 03/17/2017 Comp Metabolic Fob096 ALK PHOS 62 U/L 03/17/2017 Comp Metabolic Qva125 AST(SGOT) 19 U/L 03/17/2017 Comp Metabolic Soz974 ALT(SGPT) 21 U/L 03/17/2017 Comp Metabolic Xob607 BILI T 0.5 mg/dL 03/17/2017 Comp Metabolic Rmm182 ALBUMIN 4.1 g/dL 03/17/2017 Comp Metabolic Ojv280 TPRO 6.9 g/dL 03/17/2017 Comp Metabolic Msy491 GLOB 2.8 g/dL 03/17/2017 Comp Metabolic Vrw080 A/G Ratio 1.5 Ratio 03/17/2017 Comp Metabolic Dpv292 Osmo 284 mOsmo 03/17/2017 Lipid Ord30 CHOL [...] Ord30 C/HDL 2.1 Ratio 03/17/2017 Comp Metabolic Mim901 NA 140 mEq/L 03/17/2017 Comp Metabolic Zdh634 K 4.4 mEq/L 03/17/2017 Comp Metabolic Bec541 CL 104 mEq/L 03/17/2017 Comp Metabolic Fsp076 CO2 30.0 mEq/L 03/17/2017 Comp Metabolic Gxt235 ANION GAP 10 03/17/2017 Comp Metabolic Mki476 GLUCOSE 122 mg/dL 03/17/2017 Comp Metabolic Nsk496 Creat 0.9 mg/dL 03/17/2017 Comp Metabolic Ovl277 eGFR 82 ml/min/1.73m2 03/17/2017 Comp Metabolic Hxm107 BUN 22 mg/dL 03/17/2017 Comp Metabolic Nan148 B/C Ratio 23.7 Ratio 03/17/2017 Comp Metabolic Pyr491 CALCIUM 10.3 mg/dL 03/17/2017 Comp Metabolic Pcc638 ALK PHOS 62 U/L 03/17/2017 Comp Metabolic Zoy513 AST(SGOT) 19 U/L 03/17/2017 Comp Metabolic Jeh340 ALT(SGPT) 21 U/L 03/17/2017 Comp Metabolic Yqw664 BILI T 0.5 mg/dL 03/17/2017 Comp Metabolic Zgx440 ALBUMIN 4.1 g/dL 03/17/2017 Comp Metabolic Zhg279 TPRO 6.9 g/dL 03/17/2017 Comp Metabolic Hor540 GLOB 2.8 g/dL 03/17/2017 Comp Metabolic Qbu693 A/G Ratio 1.5 Ratio 03/17/2017 Comp Metabolic Kdu280 Osmo 284 mOsmo 03/17/2017 Pt Nfl4366 PT 23.7 seconds 03/12/2017 Pt Sxy8222 INR 2.1 03/12/2017 Pt Yyn4085 Low Intensity - 1.5-2.0 03/12/2017 Pt Rcx6886 Mod intensity - 2.0-3.0 03/12/2017 Pt Gft0482 Hi intensity - 3.0-4.0 03/12/2017 Pt Mvq0398 PT 21.3 seconds 02/10/2017 Pt Cql7129 INR 1.9 02/10/2017 Pt Vub8753 Low Intensity - 1.5-2.0 02/10/2017 Pt Wok0642 Mod intensity - 2.0-3.0 02/10/2017 Pt Zjj5515 Hi intensity - 3.0-4.0 02/10/2017 Pt Yfq8488 PT 21.4 seconds 01/27/2017 Pt Iko3751 INR 1.9 01/27/2017 Pt Jnx0216 Low Intensity - 1.5-2.0 01/27/2017 Pt Sxp1227 Mod intensity - 2.0-3.0 01/27/2017 Pt Iey3921 Hi intensity - 3.0-4.0 01/27/2017 Pt Vlb0635 PT 22.0 seconds 01/19/2017 Pt Hjw8623 INR 1.9 01/19/2017 Pt Ryr9885 Low Intensity - 1.5-2.0 01/19/2017 Pt Eim1833 Mod intensity - 2.0-3.0 01/19/2017 Pt Kyi1387 Hi intensity - 3.0-4.0 01/19/2017 Pt Onm6643 PT 28.3 seconds 01/05/2017 Pt Gmr9162 INR 2.6 01/05/2017 Pt Kxx6003 Low Intensity - 1.5-2.0 01/05/2017 Pt Uce7012 Mod intensity - 2.0-3.0 01/05/2017 Pt Cel9606 Hi intensity - 3.0-4.0 01/05/2017 Pt Zsw6310 PT 29.1 seconds 12/15/2016 Pt Zdq1345 INR 2.7 12/15/2016 Pt Kxv4074 Low Intensity - 1.5-2.0 12/15/2016 Pt Pum4493 Mod intensity - 2.0-3.0 12/15/2016 Pt Xmo3984 Hi intensity - 3.0-4.0 12/15/2016 Urine Culture Ucult Preliminary NO Growth Day 1 11/10/2016 Urine Culture Ucult Complete NO Growth Day 2 11/10/2016 Pt Xui1846 PT 23.7 seconds 11/07/2016 Pt Tqr8343 INR 2.1 11/07/2016 Pt Ama0050 Low Intensity - 1.5-2.0 11/07/2016 Pt Kxr2113 Mod intensity - 2.0-3.0 11/07/2016 Pt Ffm1399 Hi intensity - 3.0-4.0 11/07/2016 Pt Kbw6481 PT 27.1 seconds 10/13/2016 Pt Bfb4572 INR 2.7 10/13/2016 Pt Gfg4998 Low Intensity - 1.5-2.0 10/13/2016 Pt Wmo8522 Mod intensity - 2.0-3.0 10/13/2016 Pt Nwr9535 Hi intensity - 3.0-4.0 10/13/2016 Pt Avv6261 PT 26.3 seconds 09/23/2016 Pt Nch4733 INR 2.6 09/23/2016 Pt Nnd9454 Low Intensity - 1.5-2.0 09/23/2016 Pt Gey2884 Mod intensity - 2.0-3.0 09/23/2016 Pt Msq5927 Hi intensity - 3.0-4.0 09/23/2016 Pt Aol6767 PT 20.4 seconds 09/09/2016 Pt Lca7250 INR 1.8 09/09/2016 Pt Zrp7741 Low Intensity - 1.5-2.0 09/09/2016 Pt Hyv1016 Mod intensity - 2.0-3.0 09/09/2016 Pt Ttr4945 Hi intensity - 3.0-4.0 09/09/2016 Pt Jcc7227 PT 24.1 seconds 08/26/2016 Pt Xdj6864 INR 2.3 08/26/2016 Pt Djj2600 Low Intensity - 1.5-2.0 08/26/2016 Pt Isu2292 Mod intensity - 2.0-3.0 08/26/2016 Pt Vhy1542 Hi intensity - 3.0-4.0 08/26/2016 Pt Fwj5012 PT 26.1 seconds 08/12/2016 Pt Wuf5253 INR 2.6 08/12/2016 Pt Dwd4136 Low Intensity - 1.5-2.0 08/12/2016 Pt Rxc5570 Mod intensity - 2.0-3.0 08/12/2016 Pt Opx7940 Hi intensity - 3.0-4.0 08/12/2016 Pt Flf5931 PT 23.5 seconds 07/15/2016 Pt Slb1441 INR 2.2 07/15/2016 Pt Dzw8857 Low Intensity - 1.5-2.0 07/15/2016 Pt Adv7258 Mod intensity - 2.0-3.0 07/15/2016 Pt Kid1318 Hi intensity - 3.0-4.0 07/15/2016 Urine Culture Ucult Preliminary NO Growth Day 1 07/10/2016 Urine Culture Ucult Complete NO Growth Day 2 07/10/2016 Pt Lwx4539 PT 27.9 seconds 06/30/2016 Pt Rvu2402 INR 2.8 06/30/2016 Pt Qrw6030 Low Intensity - 1.5-2.0 06/30/2016 Pt Bby7196 Mod intensity - 2.0-3.0 06/30/2016 Pt Svw1134 Hi intensity - 3.0-4.0 06/30/2016 Pt Ynj3539 PT 23.7 seconds 06/12/2016 Pt Jlk0640 INR 2.3 06/12/2016 Pt Oto6119 Low Intensity - 1.5-2.0 06/12/2016 Pt Xas0240 Mod intensity - 2.0-3.0 06/12/2016 Pt Ibb9416 Hi intensity - 3.0-4.0 06/12/2016 Pt Sid8583 PT 36.5 seconds 06/06/2016 Pt Hdk9018 INR 4.0 06/06/2016 Pt Wsn9839 Low Intensity - 1.5-2.0 06/06/2016 Pt Sov6608 Mod intensity - 2.0-3.0 06/06/2016 Pt Qji2567 Hi intensity - 3.0-4.0 06/06/2016 Tibc Ord40 Iron 76 ug/dl 05/05/2016 Tibc Ord40 UIBC 210 ug/dL 05/05/2016 Tibc Ord40 TIBC 286 ug/dL 05/05/2016 Tibc Ord40 Fe-%Sat 26.6 % 05/05/2016 Pt Yoy7482 PT 29.0 seconds 05/05/2016 Pt Bec1646 INR 2.9 05/05/2016 Pt Xay8423 Low Intensity - 1.5-2.0 05/05/2016 Pt Uld4202 Mod intensity - 2.0-3.0 05/05/2016 Pt Ngx7222 Hi intensity - 3.0-4.0 05/05/2016 Ferritin Ord22 FERRITIN 32.7 ng/mL 05/05/2016 Pt Bbt7526 PT 31.1 seconds 04/08/2016 Pt Bum1142 INR 3.2 04/08/2016 Pt Uga6771 Low Intensity - 1.5-2.0 04/08/2016 Pt Yhw1566 Mod intensity - 2.0-3.0 04/08/2016 Pt Srx0788 Hi intensity - 3.0-4.0 04/08/2016 Cbc With Differential Ord2 WBC 6.64 K/ul 03/24/2016 Cbc With Differential Ord2 RBC 3.70 M/ul 03/24/2016 Cbc With Differential Ord2 HGB 12.0 g/dl 03/24/2016 Cbc With Differential Ord2 HCT 35.4 % 03/24/2016 Cbc With Differential Ord2 Neut% 45.5 % 03/24/2016 Cbc With Differential Ord2 MCV 95.7 fl 03/24/2016 Cbc With Differential Ord2 Lymph% 34.5 % 03/24/2016 Cbc With Differential Ord2 MCH 32.4 pg 03/24/2016 Cbc With Differential Ord2 [place]% 11.3 % 03/24/2016 Cbc With Differential Ord2 [...] 2.29 K/ul 03/24/2016 Cbc With Differential Ord2 [place] ABS# 0.8 K/ul 03/24/2016 Cbc With Differential Ord2 Eos ABS# 0.5 K/ul 03/24/2016 Cbc With Differential Ord2 Baso ABS# 0.0 K/ul 03/24/2016 Pt [id number] PT 17.3 seconds 03/24/2016 Pt Jtz8946 INR 1.5 03/24/2016 Pt Hkj9582 Low Intensity - 1.5-2.0 03/24/2016 Pt Uvm8733 Mod intensity - 2.0-3.0 03/24/2016 Pt Nhf8783 Hi intensity - 3.0-4.0 03/24/2016 Pt Coo4967 PT 17.8 seconds 03/12/2016 Pt Trn3798 INR 1.5 03/12/2016 Pt Dln8816 Low Intensity - 1.5-2.0 03/12/2016 Pt Rdn8702 Mod intensity - 2.0-3.0 03/12/2016 Pt Ssl9999 Hi intensity - 3.0-4.0 03/12/2016 Urine Culture Ucult Preliminary NO Growth Day 1 02/29/2016 Urine Culture Ucult Complete NO Growth Day 2 02/29/2016 Lipid Ord30 CHOL 129 mg/dL 02/21/2016 Lipid Ord30 HDL 59.0 mg/dl 02/21/2016 Lipid Ord30 TRIG 90 mg/dL 02/21/2016 Lipid Ord30 LDL 52 mg/dL 02/21/2016 Lipid Ord30 C/HDL 2.2 Ratio 02/21/2016 Comp Metabolic Wfi072 NA 136 mEq/L 02/21/2016 Comp Metabolic Ine427 K 4.4 mEq/L 02/21/2016 Comp Metabolic Ndv341 CL 102 mEq/L 02/21/2016 Comp Metabolic Ndq623 CO2 29.0 mEq/L 02/21/2016 Comp Metabolic Oeh055 ANION GAP 9 02/21/2016 Comp Metabolic Ros430 GLUCOSE 118 mg/dL 02/21/2016 Comp Metabolic Drn904 Creat 1.0 mg/dL 02/21/2016 Comp Metabolic Ifn266 eGFR 72 ml/min/1.73m2 02/21/2016 Comp Metabolic Kuk752 BUN 23 mg/dL 02/21/2016 Comp Metabolic Yat557 B/C Ratio 22.1 Ratio 02/21/2016 Comp Metabolic Apt354 CALCIUM 9.9 mg/dL 02/21/2016 Comp Metabolic Ipo281 ALK PHOS 57 U/L 02/21/2016 Comp Metabolic Ifg695 AST(SGOT) 17 U/L 02/21/2016 Comp Metabolic Vqg766 ALT(SGPT) 19 U/L 02/21/2016 Comp Metabolic Mrg853 BILI T 0.6 mg/dL 02/21/2016 Comp Metabolic Xfo214 ALBUMIN 3.9 g/dL 02/21/2016 Comp Metabolic Zos744 TPRO 6.9 g/dL 02/21/2016 Comp Metabolic Fnr057 GLOB 3.0 g/dL 02/21/2016 Comp Metabolic Phu514 A/G Ratio 1.3 Ratio 02/21/2016 Comp Metabolic Pjh504 Osmo 277 mOsmo 02/21/2016 Pt Dvd2075 PT 19.8 seconds 02/21/2016 Pt Jeg5363 INR 1.8 02/21/2016 Pt Paa7804 Low Intensity - 1.5-2.0 02/21/2016 Pt Ryi8893 Mod intensity - 2.0-3.0 02/21/2016 Pt Bbm9304 Hi intensity - 3.0-4.0 02/21/2016 Pt Urx7151 PT 24.1 seconds 01/15/2016 Pt Exg7801 INR 2.3 01/15/2016 Pt Hug8086 Low Intensity - 1.5-2.0 01/15/2016 Pt Wkz8819 Mod intensity - 2.0-3.0 01/15/2016 Pt Gsx2344 Hi intensity - 3.0-4.0 01/15/2016 Pt Bda4833 PT 26.5 seconds 01/03/2016 Pt Mnn3120 INR 2.6 01/03/2016 Pt Yze2349 Low Intensity - 1.5-2.0 01/03/2016 Pt Kpt3078 Mod intensity - 2.0-3.0 01/03/2016 Pt Ovu0323 Hi intensity - 3.0-4.0 01/03/2016 Pt Rgd4144 PT 15.3 seconds 11/30/2015 Pt Rru1416 INR 1.3 11/30/2015 Pt Ytw1115 Low Intensity - 1.5-2.0 11/30/2015 Pt Lkz1682 Mod intensity - 2.0-3.0 11/30/2015 Pt Qhk0132 Hi intensity - 3.0-4.0 11/30/2015 Review of Systems System Result Effective Dates Constitutional recent illness 06/16/2018 Constitutional chills 06/16/2018 Constitutional No diaphoresis 06/16/2018 Constitutional fever 06/16/2018 Eyes No eye erythema 06/16/2018 Ears/Nose/Throat/Neck nasal allergies Ears/Nose/Throat/Neck nasal discharge Ears/Nose/Throat/Neck postnasal drip Ears/Nose/Throat/Neck sinus congestion Ears/Nose/Throat/Neck sore throat 2018 Cardiovascular No chest pain/pressure Cardiovascular No dyspnea 06/16/2018 Respiratory No chest congestion 2018 Respiratory cough 06/16/2018 Respiratory No dyspnea 06/16/2018 Gastrointestinal No constipation 2018 Gastrointestinal No diarrhea 06/16/2018 Gastrointestinal No nausea 06/16/2018 Gastrointestinal No vomiting 06/16/2018 Dermatologic No rash 06/16/2018 Neurologic No alteration of consciousness 06/16/2018 Neurologic No mental status change 2018 Constitutional recent illness 04/23/2018 Constitutional No anorexia 04/23/2018 Constitutional No night sweats 2018 Constitutional No chills 04/23/2018 Constitutional No diaphoresis 04/23/2018 Constitutional fatigue 04/23/2018 Constitutional No fever 04/23/2018 Constitutional No insomnia 04/23/2018 Constitutional No malaise 04/23/2018 Constitutional No weight loss 04/23/2018 Constitutional No weight gain 04/23/2018 Eyes No eye discharge 04/23/2018 Eyes No eye erythema 04/23/2018 Ears/Nose/Throat/Neck nasal allergies Ears/Nose/Throat/Neck nasal discharge Ears/Nose/Throat/Neck No otalgia 2018 Ears/Nose/Throat/Neck No sinus congestion 04/23/2018 Ears/Nose/Throat/Neck sore throat 2018 Cardiovascular No chest pain/pressure Cardiovascular No dyspnea 04/23/2018 Cardiovascular No edema 04/23/2018 Respiratory productive sputum 04/23/2018 Respiratory cough 04/23/2018 Gastrointestinal No vomiting 04/23/2018 Gastrointestinal No nausea 04/23/2018 Gastrointestinal No diarrhea 04/23/2018 Genitourinary/Nephrology No dysuria 04/23 Musculoskeletal No joint complaint 2018 Musculoskeletal No arthralgia(s) 2018 Musculoskeletal No myalgias 04/23/2018 Dermatologic No rash 04/23/2018 Neurologic No alteration of consciousness 04/23/2018 Constitutional No recent illness 2018 Constitutional No chills 04/12/2018 Constitutional fatigue 04/12/2018 Constitutional No fever 04/12/2018 Constitutional No malaise 04/12/2018 Eyes No blindness 04/12/2018 Eyes No vision change 04/12/2018 Ears/Nose/Throat/Neck No dental pain 10/2018 Ears/Nose/Throat/Neck No dizziness 2018 Ears/Nose/Throat/Neck No dysphagia 2018 Ears/Nose/Throat/Neck No headache 2018 Ears/Nose/Throat/Neck No hearing loss 10/2018 Ears/Nose/Throat/Neck No nasal allergies 04/12/2018 Ears/Nose/Throat/Neck No sore throat 10/2018 Ears/Nose/Throat/Neck No postnasal drip 04/12/2018 Ears/Nose/Throat/Neck No sinus congestion 04/12/2018 Cardiovascular No chest pain/pressure 10/2018 Cardiovascular No dyspnea 04/12/2018 Cardiovascular No edema 04/12/2018 Cardiovascular No exercise intolerance Cardiovascular No fatigue 04/12/2018 Cardiovascular hypertension 04/12/2018 Cardiovascular No near-syncope/dizziness 04/12/2018 Respiratory No chest tightness 2018 Respiratory No cough 04/12/2018 Respiratory No dyspnea 04/12/2018 Respiratory No pedal edema 04/12/2018 Gastrointestinal No abdominal pain 2018 Gastrointestinal No constipation 2018 Gastrointestinal No diarrhea 04/12/2018 Gastrointestinal No gastroesophageal reflux 04/12/2018 Gastrointestinal No nausea 04/12/2018 Gastrointestinal No vomiting 04/12/2018 Genitourinary/Nephrology No dysuria 04/12 Genitourinary/Nephrology hematuria 2018 Genitourinary/Nephrology nocturia 2018 Genitourinary/Nephrology No urinary incontinence 04/12/2018 Musculoskeletal stiffness 04/12/2018 Musculoskeletal No swelling 04/12/2018 Musculoskeletal muscle weakness 2018 Musculoskeletal No myalgias 04/12/2018 Dermatologic No rash 04/12/2018 Neurologic No dizziness 04/12/2018 Neurologic No headache 04/12/2018 Neurologic No neck pain 04/12/2018 Neurologic No syncope 04/12/2018 Psychiatric No anxiety 04/12/2018 Psychiatric No depression 04/12/2018 Dermatologic No sores 04/12/2018 Constitutional No recent illness 2017 Constitutional No anorexia 03/08/2018 Constitutional No night sweats 2017 Constitutional No chills 03/08/2018 Constitutional No diaphoresis 03/08/2018 Constitutional No fatigue 03/08/2018 Constitutional No fever 03/08/2018 Constitutional No insomnia 03/08/2018 Constitutional No malaise 03/08/2018 Constitutional No weight loss 03/08/2018 Constitutional No weight gain 03/08/2018 Constitutional No recent illness 2017 Constitutional No anorexia 03/02/2018 Constitutional No night sweats 2017 Constitutional No fatigue 03/02/2018 Constitutional No diaphoresis 03/02/2018 Constitutional No chills 03/02/2018 Constitutional No fever 03/02/2018 Constitutional No insomnia 03/02/2018 Constitutional No malaise 03/02/2018 Constitutional No weight loss 03/02/2018 Constitutional No weight gain 03/02/2018 Musculoskeletal joint complaint 2017 Musculoskeletal swelling 02/26/2018 Constitutional No recent illness 2017 Constitutional No anorexia 02/26/2018 Constitutional No night sweats 2017 Constitutional No chills 02/26/2018 Constitutional No diaphoresis 02/26/2018 Constitutional No fatigue 02/26/2018 Constitutional No fever 02/26/2018 Constitutional No insomnia 02/26/2018 Constitutional No malaise 02/26/2018 Constitutional No weight gain 02/26/2018 Constitutional No weight loss 02/26/2018 Cardiovascular edema 02/26/2018 Dermatologic sores 02/26/2018 Constitutional No recent illness 2017 Constitutional No [...] Result Effective Dates Notes Full Exam - ENT Constitutional general appearance Overall: well nourished 06/16/2018 None Full Exam - ENT Constitutional general appearance Overall: well developed 06/16/2018 None Full Exam - ENT Constitutional general appearance Overall: in no acute distress 06/16/2018 None Full Exam - ENT Ears/Nose/Throat otoscopic exam Overall: external auditory canals normal 06/16/2018 None Full Exam - ENT Ears/Nose/Throat otoscopic exam Left tympanic membrane: air -fluid level 06/16/2018 None Full Exam - ENT Ears/Nose/Throat otoscopic exam Right tympanic membrane: air-fluid level 06/16/2018 None Full Exam - ENT Ears/Nose/Throat lips/ teeth/gingiva Overall: benign lips 06/16/2018 None Full Exam - ENT Ears/Nose/Throat oropharynx Overall: oral mucosa clear 06/16/2018 None Full Exam - ENT Ears/Nose/Throat oropharynx Posterior Pharynx: clear post nasal drainage 06/16/2018 None Full Exam - ENT Ears/Nose/Throat oropharynx Posterior Pharynx: erythema 06/16/2018 None Full Exam - ENT Respiratory inspection Overall: no retractions 06/16/2018 None Full Exam - ENT Respiratory inspection Overall: normal rate None Full Exam - ENT Respiratory auscultation Overall: breath sounds clear bilaterally 06/16/2018 None Full Exam - ENT Cardiovascular auscultation of heart Rate: normal rate 06/16/2018 None Full Exam - ENT Cardiovascular auscultation of heart Rhythm: regular rhythm 06/16/2018 None Full Exam - ENT Lymphatic palpation of lymph nodes Overall: anterior cervical chain benign 06/16/2018 None Full Exam - ENT Lymphatic palpation of lymph nodes Overall: posterior cervical chain benign 06/16/2018 None Full Exam - ENT Neurologic mood and affect Overall: normal mood 06/16/2018 None Full Exam - ENT Neurologic mood and affect Overall: normal affect 06/16/2018 None Full Exam - ENT Neurologic orientation Overall: oriented to person, place and time 06/16/2018 None Full Exam - ENT Ears/Nose/Throat nasal mucosa, septum, turbinates Left nasal cavity: scabbing 06/16/2018 None Full Exam - General 1994 Constitutional general appearance Development: well developed 04/23/2018 None Full Exam - General 1994 Constitutional general appearance Development: appears stated age 0104/23/2018 None Full Exam - General 1994 Constitutional general appearance Hygiene/Attention to Grooming: good hygiene 04/23/2018 None Full Exam - General 1995 Eyes conjunctiva /eyelids Overall: conjunctiva clear 04/23/2018 None Full Exam - General 1994 Eyes conjunctiva /eyelids Overall: cornea clear 04/23/2018 None Full Exam - General 1994 Eyes conjunctiva /eyelids Overall: eyelids normal 04/23/2018 None Full Exam - General 1994 Eyes pupils and irises Overall: pupils equal, round, reactive to light and accomodation 04/23/2018 None Full Exam - General 1994 Ears/Nose/Throat otoscopic exam External auditory canal: complete cerumen impaction 04/23/2018 None Full Exam - General 1994 Ears/Nose/Throat lips/teeth/gingiva Overall: benign lips 04/23/2018 None Full Exam - General 1995 Ears/Nose/Throat lips/teeth/gingiva Overall: normal dentition 04/23/2018 None Full Exam - General 1995 Ears/Nose/Throat oral cavity/pharynx/larynx Overall: oral mucosa clear 04/23/2018 None Full Exam - General 1994 Ears/Nose/Throat oral cavity/pharynx/larynx Overall: oropharyngeal mucosa clear 04/23/2018 None Full Exam - General 1995 Ears/Nose/Throat oral cavity/pharynx/larynx Overall: hypopharynx benign 04/23/2018 None Full Exam - General 1994 Ears/Nose/Throat oral cavity/pharynx/larynx Overall: no masses 04/23/2018 None Full Exam - General 1994 Respiratory auscultation Overall: breath sounds clear bilaterally 04/23/2018 None Full Exam - General 1994 Respiratory respiratory effort/rhythm Overall: no retractions 04/23/2018 None Full Exam - General 1994 Respiratory respiratory effort/rhythm Overall: normal rate 04/23/2018 None Full Exam - General 1994 Cardiovascular extremities Overall: no clubbing 04/23/2018 None Full Exam - General 1994 Cardiovascular auscultation of heart Overall: regular rate 04/23/2018 None Full Exam - General 1994 Cardiovascular auscultation of heart Overall: normal heart sounds 04/23/2018 None Full Exam - General 1994 Abdomen abdominal exam Overall: no tenderness 04/23/2018 None Full Exam - General 1994 Abdomen abdominal exam Overall: normal bowel sounds 04/23/2018 None Full Exam - General 1994 Musculoskeletal spine, ribs and pelvis Overall: spine benign 04/23/2018 None Full Exam - General 1994 Musculoskeletal spine, ribs and pelvis Overall: sacroiliac joint benign 04/23/2018 None Full Exam - General 1994 Musculoskeletal spine, ribs and pelvis Overall: good posture 04/23/2018 None Full Exam - General 1994 Musculoskeletal head and neck Overall: head atraumatic 04/23/2018 None Full Exam - General 1994 Musculoskeletal head and neck Overall: cervical spine benign 04/23/2018 None Full Exam - General 1994 Neurologic deep tendon reflexes Overall: deep tendon reflexes intact 04/23/2018 None Full Exam - General 1994 Neurologic cranial nerves Overall: crainial nerves 2 - 12 grossly intact 04/23/2018 None Full Exam - General 1994 Psychiatric orientation/consciousness Overall: oriented to person, place and time 04/23/2018 None Full Exam - General 1994 Psychiatric mood and affect Overall: normal mood and affect 04/23/2018 None Full Exam - General 1994 Constitutional general appearance Development: well developed 04/12/2018 None Full Exam - General 1994 Constitutional general appearance Development: appears stated age 0104/12/2018 None Full Exam - General 1994 Constitutional general appearance Hygiene/Attention to Grooming: good hygiene 04/12/2018 None Full Exam - General 1994 Eyes conjunctiva /eyelids Overall: conjunctiva clear 04/12/2018 None Full Exam - General 1994 Eyes conjunctiva /eyelids Overall: cornea clear 04/12/2018 None Full Exam - General 1994 Eyes conjunctiva /eyelids Overall: eyelids normal 04/12/2018 None Full Exam - General 1994 Eyes pupils and irises Overall: pupils equal, round, reactive to light and accomodation 04/12/2018 None Full Exam - General 1994 Ears/Nose/Throat otoscopic exam External auditory canal: complete cerumen impaction 04/12/2018 None Full Exam - General 1994 Ears/Nose/Throat lips/teeth/gingiva Overall: benign lips 04/12/2018 None Full Exam - General 1994 Ears/Nose/Throat lips/teeth/gingiva Overall: normal dentition 04/12/2018 None Full Exam - General 1995 Ears/Nose/Throat oral cavity/pharynx/larynx Overall: oral mucosa clear 04/12/2018 None Full Exam - General 1995 Ears/Nose/Throat oral cavity/pharynx/larynx Overall: oropharyngeal mucosa clear 04/12/2018 None Full Exam - General 1994 Ears/Nose/Throat oral cavity/pharynx/larynx Overall: hypopharynx benign 04/12/2018 None Full Exam - General 1994 Ears/Nose/Throat oral cavity/pharynx/larynx Overall: no masses 04/12/2018 None Full Exam - General 1994 Respiratory auscultation Overall: breath sounds clear bilaterally 04/12/2018 None Full Exam - General 1994 Respiratory respiratory effort/rhythm Overall: no retractions 04/12/2018 None Full Exam - General 1994 Respiratory respiratory effort/rhythm Overall: normal rate 04/12/2018 None Full Exam - General 1994 Cardiovascular extremities Overall: no clubbing 04/12/2018 None Full Exam - General 1994 Cardiovascular auscultation of heart Overall: regular rate 04/12/2018 None Full Exam - General 1994 Cardiovascular auscultation of heart Overall: normal heart sounds 04/12/2018 None Full Exam - General 1994 Abdomen abdominal exam Overall: no tenderness 04/12/2018 None Full Exam - General 1994 Abdomen abdominal exam Overall: normal bowel sounds 04/12/2018 None Full Exam - General 1994 Musculoskeletal spine, ribs and pelvis Overall: spine benign 04/12/2018 None Full Exam - General 1994 Musculoskeletal spine, ribs and pelvis Overall: sacroiliac joint benign 04/12/2018 None Full Exam - General 1994 Musculoskeletal spine, ribs and pelvis Overall: good posture 04/12/2018 None Full Exam - General 1994 Musculoskeletal head and neck Overall: head atraumatic 04/12/2018 None Full Exam - General 1994 Musculoskeletal head and neck Overall: cervical spine benign 04/12/2018 None Full Exam - General 1994 Neurologic deep tendon reflexes Overall: deep tendon reflexes intact 04/12/2018 None Full Exam - General 1994 Neurologic cranial nerves Overall: crainial nerves 2 - 12 grossly intact 04/12/2018 None Full Exam - General 1994 Psychiatric orientation/consciousness Overall: oriented to person, place and time 04/12/2018 None Full Exam - General 1994 Psychiatric mood and affect Overall: normal mood and affect 04/12/2018 None Full Exam - General 1994 Constitutional general appearance Development: well developed 03/08/2018 None Full Exam - General 1994 Constitutional general appearance Development: appears stated age 1203/08/2018 None Full Exam - General 1994 Constitutional general appearance Hygiene/Attention to Grooming: good hygiene 03/08/2018 None Full Exam - General 1994 Eyes conjunctiva /eyelids Overall: conjunctiva clear 03/08/2018 None Full Exam - General 1994 Eyes conjunctiva /eyelids Overall: cornea clear 03/08/2018 None Full Exam - General 1994 Eyes conjunctiva /eyelids Overall: eyelids normal 03/08/2018 None Full Exam - General 1994 Eyes pupils and irises Overall: pupils equal, round, reactive to light and accomodation 03/08/2018 None Full Exam - General 1994 Respiratory auscultation Overall: breath sounds clear bilaterally 03/08/2018 None Full Exam - General 1994 Respiratory respiratory effort/rhythm Overall: no retractions 03/08/2018 None Full Exam - General 1994 Respiratory respiratory effort/rhythm Overall: normal rate 03/08/2018 None Full Exam - General 1994 Cardiovascular extremities Overall: no clubbing 03/08/2018 None Full Exam - General 1994 Cardiovascular extremities Edema present: pitting 03/08/2018 None Full Exam - General 1994 Cardiovascular extremities Edema present: severity 1+ - 4 +: 2+ 03/08/2018 None Full Exam - General 1994 Cardiovascular extremities Edema present: bilateral 03/08/2018 None Full Exam - General 1994 Cardiovascular auscultation of heart Overall: regular rate 03/08/2018 None Full Exam - General 1994 Cardiovascular auscultation of heart Overall: normal heart sounds 03/08/2018 None Full Exam - General 1994 Musculoskeletal spine, ribs and pelvis Overall: spine benign 03/08/2018 None Full Exam - General 1994 Musculoskeletal spine, ribs and pelvis Overall: sacroiliac joint benign 03/08/2018 None Full Exam - General 1994 Musculoskeletal spine, ribs and pelvis Overall: good posture 03/08/2018 None Full Exam - General 1994 Musculoskeletal head and neck Overall: head atraumatic 03/08/2018 None Full Exam - General 1994 Musculoskeletal head and neck Overall: cervical spine benign 03/08/2018 None Full Exam - General 1994 Integument inspection of skin Location: right leg 03/08/2018 ulceration right calf 3cm x 1cm with surrounding erythema --Resolved Full Exam - General 1994 Psychiatric orientation/consciousness Overall: oriented to person, place and time 03/08/2018 None Full Exam - General 1994 Psychiatric mood and affect Overall: normal mood and affect 03/08/2018 None Full Exam - General 1994 Constitutional general appearance Development: well developed 03/02/2018 None Full Exam - General 1994 Constitutional general appearance Development: appears stated age 1103/02/2018 None Full Exam - General 1994 Constitutional general appearance Hygiene/Attention to Grooming: good hygiene 03/02/2018 None Full Exam - General 1994 Eyes conjunctiva /eyelids Overall: conjunctiva clear 03/02/2018 None Full Exam - General 1994 Eyes conjunctiva /eyelids Overall: cornea clear 03/02/2018 None Full Exam - General 1994 Eyes conjunctiva /eyelids Overall: eyelids normal 03/02/2018 None Full Exam - General 1994 Eyes pupils and irises Overall: pupils equal, round, reactive to light and accomodation 03/02/2018 None Full Exam - General 1994 Ears/Nose/Throat otoscopic exam External auditory canal: complete cerumen impaction 03/02/2018 None Full Exam - General 1994 Ears/Nose/Throat lips/teeth/gingiva Overall: benign lips 03/02/2018 None Full Exam - General 1994 Ears/Nose/Throat lips/teeth/gingiva Overall: normal dentition 03/02/2018 None Full Exam - General 1994 Ears/Nose/Throat oral cavity/pharynx/larynx Overall: oral mucosa clear 03/02/2018 None Full Exam - General 1994 Ears/Nose/Throat oral cavity/pharynx/larynx Overall: oropharyngeal mucosa clear 03/02/2018 None Full Exam - General 1994 Ears/Nose/Throat oral cavity/pharynx/larynx Overall: hypopharynx benign 03/02/2018 None Full Exam - General 1994 Ears/Nose/Throat oral cavity/pharynx/larynx Overall: no masses 03/02/2018 None Full Exam - General 1994 Respiratory auscultation Overall: breath sounds clear bilaterally 03/02/2018 None Full Exam - General 1994 Respiratory respiratory effort/rhythm Overall: no retractions 03/02/2018 None Full Exam - General 1994 Respiratory respiratory effort/rhythm Overall: normal rate 03/02/2018 None Full Exam - General 1994 Cardiovascular extremities Overall: no clubbing 03/02/2018 None Full Exam - General 1994 Cardiovascular extremities Edema present: pitting 03/02/2018 None Full Exam - General 1994 Cardiovascular extremities Edema present: severity 1+ - 4 +: 2+ 03/02/2018 None Full Exam - General 1994 Cardiovascular extremities Edema present: bilateral 03/02/2018 None Full Exam - General 1994 Cardiovascular auscultation of heart Overall: regular rate 03/02/2018 None Full Exam - General 1994 Cardiovascular auscultation of heart Overall: normal heart sounds 03/02/2018 None Full Exam - General 1994 Abdomen abdominal exam Overall: no tenderness 03/02/2018 None Full Exam - General 1994 Abdomen abdominal exam Overall: normal bowel sounds 03/02/2018 None Full Exam - General 1994 Musculoskeletal spine, ribs and pelvis Overall: spine benign 03/02/2018 None Full Exam - General 1994 Musculoskeletal spine, ribs and pelvis Overall: sacroiliac joint benign 03/02/2018 None Full Exam - General 1994 Musculoskeletal spine, ribs and pelvis Overall: good posture 03/02/2018 None Full Exam - General 1994 Musculoskeletal head and neck Overall: head atraumatic 03/02/2018 None Full Exam - General 1994 Musculoskeletal head and neck Overall: cervical spine benign 03/02/2018 None Full Exam - General 1994 Integument inspection of skin Location: right leg 03/02/2018 ulceration right calf 2.5cm x 1cm with fibrous tissue noted Full Exam - General 1994 Neurologic deep tendon reflexes Overall: deep tendon reflexes intact 03/02/2018 None Full Exam - General 1994 Neurologic cranial nerves Overall: crainial nerves 2 - 12 grossly intact 03/02/2018 None Full Exam - General 1994 Psychiatric orientation/consciousness Overall: oriented to person, place and time 03/02/2018 None Full Exam - General 1994 Psychiatric mood and affect Overall: normal mood and affect 03/02/2018 None Full Exam - General 1994 Constitutional general appearance Development: well developed 02/26/2018 None Full Exam - General 1994 Constitutional general appearance Development: appears stated age 1102/26/2018 None Full Exam - General 1994 Constitutional general appearance Hygiene/Attention to Grooming: good hygiene 02/26/2018 None Full Exam - General 1994 Eyes conjunctiva /eyelids Overall: conjunctiva clear 02/26/2018 None Full Exam - General 1994 Eyes conjunctiva /eyelids Overall: cornea clear 02/26/2018 None Full Exam - General 1994 Eyes conjunctiva /eyelids Overall: eyelids normal 02/26/2018 None Full Exam - General 1994 Eyes pupils and irises Overall: pupils equal, round, reactive to light and accomodation 02/26/2018 None Full Exam - General 1994 Ears/Nose/Throat otoscopic exam External auditory canal: complete cerumen impaction 02/26/2018 None Full Exam - General 1994 Ears/Nose/Throat lips/teeth/gingiva Overall: benign lips 02/26/2018 None Full Exam - General 1994 Ears/Nose/Throat lips/teeth/gingiva Overall: normal dentition 02/26/2018 None Full Exam - General 1994 Ears/Nose/Throat oral cavity/pharynx/larynx Overall: oral mucosa clear 02/26/2018 None Full Exam - General 1994 Ears/Nose/Throat oral cavity/pharynx/larynx Overall: oropharyngeal mucosa clear 02/26/2018 None Full Exam - General 1994 Ears/Nose/Throat oral cavity/pharynx/larynx Overall: hypopharynx benign 02/26/2018 None Full Exam - General 1994 Ears/Nose/Throat oral cavity/pharynx/larynx Overall: no masses 02/26/2018 None Full Exam - General 1994 Respiratory auscultation Overall: breath sounds clear bilaterally 02/26/2018 None Full Exam - General 1994 Respiratory respiratory effort/rhythm Overall: no retractions 02/26/2018 None Full Exam - General 1994 Respiratory respiratory effort/rhythm Overall: normal rate 02/26/2018 None Full Exam - General 1994 Cardiovascular extremities Overall: no clubbing 02/26/2018 None Full Exam - General 1994 Cardiovascular auscultation of heart Overall: regular rate 02/26/2018 None Full Exam - General 1994 Cardiovascular auscultation of heart Overall: normal heart sounds 02/26/2018 None Full Exam - General 1994 Abdomen abdominal exam Overall: no tenderness 02/26/2018 None Full Exam - General 1994 Abdomen abdominal exam Overall: normal bowel sounds 02/26/2018 None Full Exam - General 1994 Musculoskeletal spine, ribs and pelvis Overall: spine benign 02/26/2018 None Full Exam - General 1994 Musculoskeletal spine, ribs and pelvis Overall: sacroiliac joint benign 02/26/2018 None Full Exam - General 1994 Musculoskeletal spine, ribs and pelvis Overall: good posture 02/26/2018 None Full Exam - General 1994 Musculoskeletal head and neck Overall: head atraumatic 02/26/2018 None Full Exam - General 1994 Musculoskeletal head and neck Overall: cervical spine benign 02/26/2018 None Full Exam - General 1994 Neurologic deep tendon reflexes Overall: deep tendon reflexes intact 02/26/2018 None Full Exam - General 1994 Neurologic cranial nerves Overall: crainial nerves 2 - 12 grossly intact 02/26/2018 None Full Exam - General 1994 Psychiatric orientation/consciousness Overall: oriented to person, place and time 02/26/2018 None Full Exam - General 1994 Psychiatric mood and affect Overall: normal mood and affect 02/26/2018 None Full Exam - General 1994 Cardiovascular extremities Edema present: bilateral 02/26/2018 None Full Exam - General 1994 Cardiovascular extremities Edema present: severity 1+ - 4 +: 2+ 02/26/2018 None Full Exam - General 1994 Cardiovascular extremities Edema present: pitting 02/26/2018 None Full Exam - General 1994 Integument inspection of skin Location: right leg 02/26/2018 ulceration right calf 3cm x 1cm with surrounding erythema Full Exam - Dermatology Constitutional general appearance [...] impaction 12/15/2016 None Full Exam - General 1995 Ears/Nose/Throat lips/teeth/gingiva Overall: benign lips 12/15/2016 None [...] lips 07/08/2016 None Full Exam - General 1995 Ears/Nose/Throat oral cavity/pharynx/larynx Overall: oral mucosa clear [...] impaction 11/21/2015 None Procedures Procedure Codes Date THER/PROPH/DIAG INJ SC/IM CPT-4: 32744 06/16/2018 TRIAMCINOLONE ACET INJ NOS CPT-4: J3301 06/16/2018 TRIAMCINOLONE ACET INJ NOS CPT-4: J3301 04/23/2018 ADMIN INFLUENZA VIRUS VAC CPT-4: G0008 01/04/2018 FLU VACC PRSV FREE INC ANTIG Formatting Model/CDA Sections, Assigned to/Arabella Carballo CPT-4: [id number] 01/04/2018 URINALYSIS NONAUTO W/O SCOPE CPT-4: 45673 11/07/2016 URINALYSIS NONAUTO W/O SCOPE CPT-4: 35049 02/26/2016 ADMIN INFLUENZA VIRUS VAC CPT-4: G0008 01/03/2016 FLU VACC 4 ARIANNA 3 YRS PLUS IM SNOMED CT: [id number] CPT-4: 45160 01/03/2016 Vital Signs Date Vital 06/16/2018 Blood Pressure 1: 130/78 Code : 8480-6 Heart Rate 1: 85 bpm Height: 5'4" SpO2: 97% Temperature: 37.1 (C) / 98.8 (F) Weight: 04/23/2018 Blood Pressure 1: 118/64 Code : 8480-6 BMI: 35.0 Code : 91938-2 Heart Rate 1 : 88 bpm Height: 5'4" SpO2: 96% Temperature: 36.3 (C) / 97.4 (F) Weight: 204 lbs 04/12/2018 Blood Pressure 1: 144/76 Code : 8480-6 BMI: 35.0 Code : 51275-3 Heart Rate 1 : 75 bpm Height: 5'4" SpO2: 98% Weight: 204 lbs 03/08/2018 Blood Pressure 1: 124/70 Code : 8480-6 Heart Rate 1: 84 bpm Height: 5'4" SpO2: 92% Weight: 03/02/2018 Blood Pressure 1: 138/76 Code : 8480-6 Heart Rate 1: 87 bpm Height: 5'4" SpO2: 98% Weight: 02/26/2018 Blood Pressure 1: 148/68 Code : 8480-6 BMI: 35.0 Code : 20851-2 Heart Rate 1 : 80 bpm Height: 5'4" SpO2: 97% Weight: 204 lbs 01/28/2018 Blood Pressure 1: 150/60 Code : 8480-6 Heart Rate 1: 91 bpm SpO2: 92% 12/29/2017 Blood Pressure 1: 144/62 Code : 8480-6 BMI: 34.7 Code : 73791-2 Heart Rate 1 : 73 bpm Height: 5'4" SpO2: 97% Weight: 202 lbs 09/29/2017 Blood Pressure 1: 132/80 Code : 8480-6 Heart Rate 1: 76 bpm SpO2: 97% Weight: 204 lbs 08/11/2017 Blood Pressure 1: 132/66 Code : 8480-6 BMI: 35.0 Code : 82284-6 Heart Rate 1 : 81 bpm Height: 5'4" SpO2: 96% Weight: 204 lbs 03/16/2017 Blood Pressure 1: 132/70 Code : 8480-6 BMI: 34.5 Code : 41427-3 Heart Rate 1 : 78 bpm Height: 5'4" SpO2: 98% Weight: 201 lbs 12/15/2016 Blood Pressure 1: 140/80 Code : 8480-6 BMI: 34.2 Code : 15568-5 Heart Rate 1 : 69 bpm Height: 5'4" SpO2: 98% Weight: 199 lbs 11/07/2016 Blood Pressure 1: 158/82 Code : 8480-6 BMI: 34.7 Code : 14289-9 Heart Rate 1 : 76 bpm Height: 5'4" SpO2: 98% Weight: 202 lbs 10/14/2016 Blood Pressure 1: 140/80 Code : 8480-6 BMI: 34.0 Code : 30182-4 Heart Rate 1 : 79 bpm Height: 5'4" SpO2: 96% Weight: 198 lbs 09/10/2016 Blood Pressure 1: 158/80 Code : 8480-6 BMI: 34.3 Code : 63930-7 Heart Rate 1 : 75 bpm Height: 5'4" SpO2: 98% Weight: 200 lbs 07/08/2016 Blood Pressure 1: 160/74 Code : 8480-6 BMI: 35.2 Code : 74905-2 Heart Rate 1 : 94 bpm Height: 5'4" SpO2: 97% Weight: 205 lbs 06/16/2016 Blood Pressure 1: 138/76 Code : 8480-6 BMI: 35.0 Code : 76554-5 Heart Rate 1 : 68 bpm Height: 5'4" SpO2: 98% Weight: 204 lbs 01/31/2016 Blood Pressure 1: 136/64 Code : 8480-6 BMI: 33.6 Code : 91538-3 Heart Rate 1 : 92 bpm Height: 5'4" SpO2: 98% Weight: 196 lbs 01/03/2016 Blood Pressure 1: 142/68 Code : 8480-6 BMI: 33.8 Code : 92755-9 Heart Rate 1 : 80 bpm Height: 5'4" SpO2: 97% Weight: 197 lbs 11/30/2015 Blood Pressure 1: 158/80 Code : 8480-6 Heart Rate 1: 83 bpm SpO2: 98% 11/21/2015 Blood Pressure 1: 172/80 Code : 8480-6 BMI: 32.8 Code : 63609-7 Heart Rate 1 : 87 bpm Height: 5'4" SpO2: 98% Weight: 191 lbs Functional Status No Functional Status data History of Present Illness Symptom Name Status Result Effective Date Notes Location frontal sinuses 06/16/2018 None Quality constant None Quality fullness None Quality pressure None Onset and Resolution sudden in onset 06/16/2018 None Onset of Symptom 2 days ago 06/16/2018 None Frequency of Episodes daily 06/16/2018 None Location diffusely None Quality aching 2018 None Quality constant None Quality scratchy None Onset and Resolution sudden in onset 06/16/2018 None Onset of Symptom 2 days ago 06/16/2018 None Frequency of Episodes daily 06/16/2018 None Onset and Resolution sudden in onset 04/23/2018 None Onset of Symptom 2 days ago 04/23/2018 None Pertinent Findings cough 04/23/2018 None Pertinent Findings decreased energy level 04/23/2018 None Pertinent Findings fever 04/23/2018 None Quality intermittent 04/23/2018 None Severity mild 2018 None Frequency of Episodes decreasing 04/23/2018 None Timing of Episodes all day long 04/23/2018 None Significant Medical Conditions allergic rhinitis 04/23/2018 None Triggers no known associated factors 04/23/2018 None Alleviating Factors medication 04/23/2018 None Quality primary hypertension 04/12/2018 None Onset and Resolution ongoing 04/12/2018 None Onset of Symptom during adulthood 04/12/2018 None Blood Pressure Values not checking blood pressure at home 04/12/2018 - Planning to start Alleviating Factors medication 04/12/2018 None Exacerbating Factors stress 04/12/2018 None Pertinent Findings Denies dizziness 04/12/2018 None Pertinent Findings Denies dyspnea 04/12/2018 None Pertinent Findings edema 04/12/2018 in his left leg-- from a blood clot in 2006 and the right leg--improving Quality chronic 04/12 None Quality improving 06/2017 None Location right lower leg 03/08/2018 None Onset of Symptom 6 days ago 03/08/2018 None Frequency of Episodes decreasing 03/08/2018 None Significant Medical Conditions infection 03/08/2018 None Pertinent Findings Denies fever 03/08/2018 None Onset and Resolution resolved 03/08/2018 None skin lesion Onset and Resolution sudden in onset 03/02/2018 None skin lesion Severity moderate 03/02/2018 None skin lesion Significant Medical Conditions infection 03/02/2018 None skin lesion Location right lower leg 03/02/2018 None skin lesion Pertinent Findings Denies fever 03/02/2018 None skin lesion Quality acute 03/02/2018 None skin lesion Quality oozing 03/02/2018 None skin lesion Quality improving 03/02/2018 None skin lesion Onset of Symptom 6 days ago 03/02/2018 None skin lesion Frequency of Episodes decreasing 03/02/2018 None skin lesion Triggers stress 03/02/2018 (rubbing) skin lesion Quality erythematous 03/02/2018 None skin lesion Onset and Resolution sudden in onset 02/26/2018 None skin lesion Onset of Symptom 2 days ago 02/26/2018 None skin lesion Location right lower leg 02/26/2018 None skin lesion Quality enlarging 02/26/2018 None skin lesion Severity moderate 02/26/2018 None skin lesion Frequency of Episodes increasing 02/26/2018 None skin lesion Significant Medical Conditions infection 02/26/2018 None skin lesion Triggers no known associated factors 02/26/2018 None skin lesion Pertinent Findings Denies fever 02/26/2018 None foot pain Location on the left 01/28/2018 [...] Codes Date EST. 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 PATIENT, LEVEL III Diagnosis: Cough[ICD10: R05] Diagnosis: Acute upper respiratory infection, unspecified[ICD10: J06.9] Kelli Gallardo MD, [facility] CPT-4: 60923 04/23/2018 [id number] EST. PATIENT, LEVEL IV Diagnosis: Essential (primary) hypertension[ICD10: I10] Diagnosis: Malignant neoplasm of prostate[ICD10: C61] Diagnosis: Personal history of malignant neoplasm of prostate[ICD10: Z85.46] Diagnosis: [facility]FP (current) use of anticoagulants[ICD10: Z79.01] Pamela Gallardo MD, [facility] CPT-4: 00912 04/12/[id number]) 03560 EST. PATIENT, LEVEL II Diagnosis: Cellulitis of right lower limb[ICD10: L03.115] Kelli Gallardo MD [facility] CPT-4: 23458 03/08/2018 ([id number]) Miscellaneous no charge Diagnosis: Cellulitis of right lower limb[ICD10: L03.115] Kelli Gallardo MD [facility] CPT-4: 67945 03/02/2018 ([id number]) 10992 EST. PATIENT, LEVEL III Diagnosis: Cellulitis of right lower limb[ICD10: L03.115] Kelli Gallardo MD [facility] CPT-4: 44018 02/26/2018 83493 EST. PATIENT, LEVEL III Diagnosis: Cellulitis of left lower limb[ICD10: L03.116] Octavia Gallardo MD [facility] CPT-4: 97739 01/28/2018 ([id number]) 03461 EST. PATIENT, LEVEL III Diagnosis: Essential (primary) hypertension[ICD10: I10] Diagnosis: [facility]FP (current) use of anticoagulants[ICD10: Z79.01] Diagnosis: Nocturia[ICD10: R35.1] Pamela Gallardo MD [facility] CPT-4: 56754 12/29/2017 ([id number]) 41152 EST. PATIENT, LEVEL IV Diagnosis: Essential (primary) hypertension[ICD10: I10] Diagnosis: Urge incontinence[ICD10: N39.41] Pamela Gallardo MD [facility] CPT-4: 55256 09/29/2017 ([id number]) 12600 EST. PATIENT, LEVEL IV Diagnosis: Essential (primary) hypertension[ICD10: I10] Diagnosis: Mixed hyperlipidemia[ICD10: E78.2] Diagnosis: [facility]FP (current) use of anticoagulants[ICD10: Z79.01] Pamela Gallardo MD [facility] CPT-4: 33412 08/11/2017 ([id number]) 84954 EST. 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 PATIENT, LEVEL IV Diagnosis: Essential (primary) hypertension[ICD10: I10] Diagnosis: Mixed hyperlipidemia[ICD10: E78.2] Diagnosis: [facility]FP (current) use of anticoagulants[ICD10: Z79.01] Pamela Gallardo MD [facility] CPT-4: 45177 12/15/2016 ([id number]) 10729 EST. 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 PATIENT, LEVEL IV Diagnosis: Essential (primary) hypertension[ICD10: I10] Diagnosis: Mixed hyperlipidemia[ICD10: E78.2] Diagnosis: Gross hematuria[ICD10: R31.0] Pamela Gallardo MD, [facility] CPT- 4: 48308 10/14/2016 ([id number]) 81498 EST. PATIENT, LEVEL IV Diagnosis: Essential (primary) hypertension[ICD10: I10] Diagnosis: [facility]FP (current) use of anticoagulants[ICD10: Z79.01] Diagnosis: Mixed hyperlipidemia[ICD10: E78.2] Pamela Gallardo MD, [facility] CPT-4: 68797 09/10/2016 71813 EST. PATIENT, LEVEL III Diagnosis: Gross hematuria[ICD10: R31.0] Octavia Gallardo MD, [facility] CPT-4 : 18272 07/08/2016 ([id number]) 68076 EST. PATIENT, LEVEL IV Diagnosis: Essential (primary) hypertension[ICD10: I10] Diagnosis: Mixed hyperlipidemia[ICD10: E78.2] Diagnosis: [facility]FP (current) use of anticoagulants[ICD10: Z79.01] Pamela Gallardo MD [facility] CPT-4: 51340 06/16/2016 ([id number]) 60610 EST. PATIENT, LEVEL IV Diagnosis: Essential (primary) hypertension[ICD10: I10] Diagnosis: Mixed hyperlipidemia[ICD10: E78.2] Pamela Gallardo MD, [facility] CPT-4: 70544 01/31/2016 ([id number]) 04617 EST. PATIENT, LEVEL IV Diagnosis: Essential (primary) hypertension[ICD10: I10] Diagnosis: Mixed hyperlipidemia[ICD10: E78.2] Diagnosis: Encounter for immunization[ICD10: Z23] [facility] CPT-4: 92324 01/03/2016 ([id number]) Miscellaneous no charge Diagnosis: Essential (primary) hypertension[ICD10: I10] Octavia Gallardo MD, [facility] CPT-4: 03943 11/30/2015 ([id number]) OFFICE VISIT, NEW - LEVEL 4 Diagnosis: Essential (primary) hypertension[ICD10: I10] Diagnosis: Mixed hyperlipidemia[ICD10: E78.2] Diagnosis: Impacted cerumen, bilateral[ICD10: H61.23] Pamela Gallardo MD, [facility] CPT-4: 50218 11/21/2015 Plan of Care Planned Activity Notes Codes Status Date Visit Plan: URI - Pt advised to increase fluids, vitamin C. Discussed natural and expected course of this diagnosis and need to alert me if symptoms do not follow expected course, or if any worse. RX sent to patient' s pharmacy. Allergies - chronic - recommended pt to use allergy medication as prescribed. Pt has been counseled as to the appropriate use of the medication. Pt to call if allergy symptoms are not controlled with the medication. If using nasal spray, instructions as follows: Nasal spray- use twice daily, one spray per nostril twice daily, after 30 minutes, rinse out nose with saline spray.. Use opposite hand per nostril to spray in the nasal steroid allergy spray. 06/16/2018 Appointment: Octavia Zarate WPtel: [address] [place], [place] [id number] (30 min) Complex 06/16/2018 Patient Education: Patient Medication Summary Completed 06/16/2018 Visit Plan: URI - Pt advised to increase fluids, vitamin C. Discussed natural and expected course of this diagnosis and need to alert me if symptoms do not follow expected course, or if any worse. RX sent to patient' s pharmacy. 04/23/2018 Appointment: Kelli Mccullough WPtel: [phone] (15 min) Moderate 04/23/2018 Patient Education: Patient Medication Summary Completed 04/23/2018 Visit Plan: Hypertension - well controlled - continue with current medications, continue with no added salt diet. Pt has been encouraged to exercise daily. The pt has been advised to call the office if there are any acute concerns about change in blood pressure readings at home. Malignant neoplasm of prostate - agree with plans for patient to have chemotherapy through - Dr. Amin. Chronic Anticoagulant use - Pt has been counseled about the anticoagulant, need for serial monitoring, and need for the pt to alert the physician as to any new bruising, or acute bleeding. Therapeutic goal for INR is between 2.0 and 3.5. 04/12/2018 Appointment: Pamela Gallardo WPtel: [facility] (15 min) Moderate 04/12/2018 Patient Education: Patient Medication Summary Completed 04/12/2018 Visit Plan: Ulcer of right leg -healed-no further treatment indicated 03/08/2018 Appointment: Kelli Mccullough WPtel: [address] [place], [place] [phone] [place] (15 min) Moderate 03/08/2018 Patient Education: Patient Medication Summary Completed 03/08/2018 Visit Plan: Ulcer of leg -improved-continue wound care as directed-follow up in 1 week, sooner if needed 03/02/2018 Appointment: Kelli Mccullough WPtel: [address] [place], [place] [phone] [place] (15 min) Moderate 03/02/2018 Patient Education: Patient Medication Summary Completed 03/02/2018 Visit Plan: Cellulitis - continue with oral antibiotics as previously directed, return to clinic as previously directed, call for acute change in symptoms, worsening redness, warmth, discharge. 02/26/2018 Appointment: Kelli Mccullough WPtel: [phone] [phone] (15 min) Moderate 02/26/2018 Patient Education: Patient Medication Summary Completed 02/26/2018 Visit Plan: Cellulitis - pt is to follow up with his surgeon - continue with oral antibiotics as previously directed, return to clinic as previously directed, call for acute change in symptoms, worsening redness, warmth, discharge. 01/28/2018 Appointment: Octavia Zarate WPtel: [phone] [facility] (15 min) Moderate 01/28/2018 Patient Education: Patient [...] supportive care. 12/29/2017 Appointment: Pamela Gallardo WPtel: [phone] [phone] (15 min) Moderate 12/29/2017 Patient Education: Patient Medication Summary Completed 12/29/2017 Appointment: Pamela Gallardo WPtel: [phone] [facility] Same Day appointments 12/16/2017 Visit Plan: Hypertension [...] the pharmacy 09/29/2017 Appointment: Pamela Gallardo WPtel: [phone] [phone] (15 min) Moderate 09/29/2017 Patient Education: Patient [...] good 08/11/2017 Appointment: Pamela Gallardo WPtel: [phone] [phone] (15 min) Moderate 08/11/2017 Patient Education: Patient Medication Summary Completed 08/11/2017 Appointment: Pamela Gallardo WPtel: [phone] [phone] (15 min) Moderate 08/06/2017 Appointment: Pamela Gallardo WPtel: [phone] [phone] (15 min) Moderate 08/04/2017 Visit Plan: Hypertension [...] symptoms. 03/16/2017 Appointment: Pamela Gallardo WPtel: [phone] [phone] (15 min) Moderate 03/16/2017 Patient Education: Patient Medication Summary Completed 03/16/2017 Patient Education: Obesity Completed 03/16/2017 Appointment: Pamela Gallardo WPtel: [phone] (15 min) Moderate 12/30/2016 Visit Plan: Hypertension [...] labs today. 12/15/2016 Appointment: Pamela Gallardo WPtel: [facility] ([facility] min) Moderate 12/15/2016 Patient Education: Patient Medication Summary Completed 12/15/2016 Visit Plan: Iron deficiency foahny-wzdy-ggmrhl bleeding- INR has been stable-continue multivitamin with iron daily Hematuria-3+ blood in urine-check PT/INR today-culture urine 11/07/2016 Appointment: Kelli Mccullough WPtel: [phone] [phone] [place] (15 min) Moderate 11/07/2016 Patient Education: [...] to medications. 10/14/2016 Appointment: [phone] [place] (15 min) Moderate 10/14/2016 Patient Education: Patient Medication Summary Completed 10/14/2016 Patient Education: Obesity Completed 10/14/2016 App[facility]ment: [phone] [place] (15 min) Moderate 10/09/2016 Visit Plan: [...] concerns. 07/08/2016 [phone] ([facility] min) Moderate 07/08/2016 Patient Education: Patient [...] coumadin. 06/16/2016 Appointment: [phone] [place] (15 min) Moderate 06/16/2016 Patient Education: Patient Medication Summary Completed 06/16/2016 Patient Education: Obesity Completed 06/16/2016 Appointment: [phone] [place] (15 min) Moderate 05/22/2016 Patient Education: [...] to medications. 01/31/2016 Appointment: [phone] (15 min) Moderate 01/31/2016 Patient Education: Patient [...] to medications. 01/03/2016 Appointment: [phone] [place] (15 min) Moderate 01/03/2016 Patient Education: [...] to medications. 11/21/2015 Appointment: Pamela Gallardo WPtel: [address] [place], [place] [id number] New Patient 11/21/2015 Patient Education: Patient Medication [...] anemia - chronic but stable, monitor symptoms. . Ulcer of leg -improved-continue wound care as directed- follow up in 1 week, sooner if needed . Hypertension - well controlled - continue [...] assure normal liver response to medications. . URI - Pt advised to increase fluids, vitamin C. Discussed natural and expected course of this diagnosis and need to alert me if symptoms do not follow expected course, or if any worse. RX sent to patient's pharmacy. . Hypertension - well controlled - continue with current medications, continue with no added salt diet. Pt has been encouraged to exercise daily. The pt has been advised to call the office if there are any acute concerns about change in blood pressure readings at home. Malignant neoplasm of prostate - agree with plans for patient to have chemotherapy through - Dr. Amin. Chronic Anticoagulant use - Pt has been counseled about the anticoagulant, need for serial monitoring, and need for the pt to alert the physician as to any new bruising, or acute bleeding. Therapeutic goal for INR is between 2.0 and 3.5. . Hypertension - well controlled - continue [...] good Nocturia - continue with supportive care. steroid shot today flu swab today we will check your INR blood level today to see if we need to adjust your coumadin let me know if you are not feeling better tomorrow and we will add on an antibiotic if we need to . URI - Pt advised to increase fluids, vitamin C. Discussed natural and expected course of this diagnosis and need to alert me if symptoms do not follow expected course, or if any worse. RX sent to patient's pharmacy. Allergies - chronic - recommended pt to use allergy medication as prescribed. Pt has been counseled as to the appropriate use of the medication. Pt to call if allergy symptoms are not controlled with the medication. If using nasal spray, instructions as follows: Nasal spray- use twice daily, one spray per nostril twice daily, after 30 minutes, rinse out nose with saline spray.. Use opposite hand per nostril to spray in the nasal steroid allergy spray. Dr. Lincoln always kept INR close to [...] or with any questions or concerns. . Ulcer of right leg -healed-no further treatment indicated blood pressure is uncontrolled - i recommend [...] it to the pharmacy . Iron deficiency axstyg-vahx-fmjcoo bleeding-INR has been stable-continue multivitamin with iron [...] with current management - check labs today. CHANGE DRESSING DAILY -CLEANSE WITH STERILE SALINE AND APPLY MEDIHONEY TO WOUND AND COVER WITH NON STICK DRESSING CEPHALEXIN 500MG THREE TIMES DAILY ELEVATE LEGS USE COMPRESSION STOCKINGS ON IN THE MORNING AND OFF AT BEDTIME. Recommend using extra padding to keep boot from rubbing on leg. . Cellulitis - continue with oral antibiotics as previously directed, return to clinic as previously directed, call for acute change in symptoms, worsening redness, warmth, discharge. increase the coumadin to 5mg on tuesdays, [...]
--- OUTSIDE RECORDS SUMMARY | 2018-07-09 11:16 | XMS REPORT | CCD ---
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 Role Phone PP Unavailable CCM Unavailable Summary Purpose Interface Exchange Insurance Providers Payer name Policy type / Coverage type Covered libertarian ID Effective Begin Date Effective End Date WPS Medicare Part B Medicare Part B [id number] Unknown [facility] Medicare Part B [id number] Unknown Family history Father Diagnosis Age At [...] Unknown Retired 11/21/[address]: 3827085 Former smoker Quit September 2014 11/21/[address]: 823480 Currently drinks alcohol 11/21/2015 Has the patient ever used illegal drugs? 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: V58.61 ICD-10: [...] Fill Instructions lisinopril 20 mg tablet RxNorm: 630974 TAKE 1 TABLET BY MOUTH ONCE DAILY 07/05/2018 No Stop Date Active mupirocin 2 % topical ointment RxNorm: 684166 1 Application TOP BID 06/17/2018 No Stop Date Active amoxicillin 500 mg capsule RxNorm: 456964 1 Capsule(s) PO TID 06/17/2018 06/16/2018 Inactive amoxicillin 500 mg capsule RxNorm: 993167 1 Capsule(s) PO TID 06/17/2018 06/26/2018 Inactive Kenalog 40 mg/mL suspension for injection RxNorm: 4694359 Milliliter(s) Inj 06/16/2018 06/16/2018 Inactive Kenalog 40 mg/mL suspension for injection RxNorm: 1891604 Milliliter(s) Inj 04/23/2018 04/23/2018 Inactive Keflex 500 mg capsule RxNorm: 244029 1 Capsule(s) PO TID 201804/29/2018 Inactive Keflex 500 mg capsule RxNorm: 307887 1 Capsule(s) PO TID 201703/04/2018 Inactive Bactrim DS 800 mg-160 mg tablet RxNorm: 482771 1 Tablet(s) PO BID 01/28/2018 02/06/2018 Inactive warfarin 5 mg tablet RxNorm: 411261 1 Tablet(s) PO UD on Thursday - goal for INR is 2.3 12/25/2017 08/21/2018 Active warfarin 7.5 mg tablet RxNorm: 534171 1 Tablet(s) PO daily except Sat take 5mg 12/25/2017 12/19/2018 Active Lovenox 40 mg/0.4 mL subcutaneous syringe RxNorm: 680678 1 Milliliter(s) SQ BID 10/14/2017 No Stop Date Active Holding coumadin x 5 days. Start the day after stopping coumadin for procedure. Hold the day of surgery. The day after surgery resume BID x 4 days. Vesicare 10 mg tablet RxNorm: 095435 1 Tablet(s) PO QPM 2017 No Stop Date Active lisinopril 20 mg tablet RxNorm: 556559 TAKE ONE TABLET BY MOUTH ONCE DAILY 06/23/2017 07/04/2018 Inactive warfarin 5 mg tablet RxNorm: 159140 1 Tablet(s) PO UD on Thursday and - goal for INR is 2.3 02/11/2017 10/08/2017 Inactive lisinopril 20 mg tablet RxNorm: 828178 1 Tablet(s) PO daily 06/22/2017 Inactive warfarin 7.5 mg tablet RxNorm: 509831 1 Tablet(s) PO daily except 10/14/2016 10/08/2017 Inactive warfarin 5 mg tablet RxNorm: 284519 1 Tablet(s) PO UD on Thursday and - goal for INR is 2.3 10/14/2016 02/10/2017 Inactive warfarin 5 mg tablet RxNorm: 767347 1 Tablet(s) PO UD on Thursday10/14/2016 10/13/2016 Inactive warfarin 7.5 mg tablet RxNorm: 980865 1 Tablet(s) PO daily 10/13/2016 Inactive warfarin 7.5 mg tablet RxNorm: 995667 1 Tablet(s) PO daily 03/201708/17/2016 Inactive Norvasc 5 mg tablet RxNorm: 688091 1 Tablet(s) PO QPM 201512/14/2016 Inactive iron 65 mg RxNorm: 1 PO daily No Start Date Active aspirin 81 mg chewable tablet RxNorm: 584693 1 Tablet(s) PO daily No Start Date Active amlodipine 2.5 mg tablet RxNorm: 651033 1 Tablet(s) PO daily No Start Date Active PreserVision AREDS 2 oral RxNorm: 1481363 oral No Start Date Active prednisone 5 mg tablet RxNorm: 263891 1 Tablet(s) PO BID No Start Date Active Citracal + D3 (calcium phosphate) oral RxNorm: 4199531 oral No Start Date Active Centrum Silver tablet RxNorm: 1 Tablet(s) PO daily No Start Date Active Zytiga 500 mg tablet RxNorm: 1486243 2 Tablet(s) PO daily No Start Date Active Colace 100 mg capsule RxNorm: 0679905 1-2 Capsule(s) PO as needed constipation No Start Date Active Oriana-C ER 1,000 mg-200 mg tablet,extended release RxNorm: 652071 1 Tablet(s) PO BID No Start Date Active carvedilol 6.25 mg tablet RxNorm: 271456 1 Tablet(s) PO BID No Start Date Active Imodium A-D 2 mg tablet RxNorm: 996225 1 Tablet(s) PO as needed diarrhea No Start Date Active atorvastatin 20 mg tablet RxNorm: 153746 1 Tablet(s) PO daily No Start Date Active carvedilol 6.25 mg tablet RxNorm: 593117 1 Tablet(s) PO BID No Start Date Active Lupron Depot intramuscular RxNorm: 448805 intramuscular No Start Date Active Lovenox 40 mg/0.4 mL subcutaneous syringe RxNorm: 642866 1 Milliliter(s) SQ BID No Start Date 10/13/2017 Inactive Holding coumadin x 5 days. Start the day after stopping coumadin for procedure. Hold the day of surgery. The day after surgery resume BID x 4 days. warfarin 5 mg tablet RxNorm: 705320 1 Tablet(s) PO every other day No Start Date 10/13/2016 Inactive warfarin 7.5 mg tablet RxNorm: 946212 1 Tablet(s) PO every other day No Start Date 07/15/2016 Inactive lisinopril 20 mg tablet RxNorm: 034537 1 Tablet(s) PO daily No Start Date 12/28/2016 Inactive clopidogrel 75 mg tablet RxNorm: 452694 1 Tablet(s) PO daily No Start Date 03/10/2016 Inactive Medication Administered Medication Codes Instructions Start Date Status Kenalog 40 mg/mL suspension for injection RxNorm: 1270953 Milliliter 06/16/2018 No longer Active Kenalog 40 mg/mL suspension for injection RxNorm: 8746726 Milliliter 04/23/2018 No longer Active Immunizations Vaccine Codes Date Status Influenza CVX: 141 01/04/2018 completed Influenza CVX: 141 01/03/2016 completed Assessments Condition Codes Effective Dates Acute laryngopharyngitis ICD-10: J06.0 ICD-9: 465.0 06/16/2018 [facility] (current) use of anticoagulants ICD-10: Z79.01 ICD-9: [...] Code Item Item Code Result Date Pt Bpp8133 PT 19.1 seconds 06/29/2018 Pt Zmj9751 INR 1.7 06/29/2018 Pt Hwu3188 Low Intensity - 1.5-2.0 06/29/2018 Pt Gpk0589 Mod intensity - 2.0-3.0 06/29/2018 Pt Pey4283 Hi intensity - 3.0-4.0 06/29/2018 Pt Dco5659 PT 17.3 seconds 06/16/2018 Pt Tdb5818 INR 1.5 06/16/2018 Pt Zvj8069 Low Intensity - 1.5-2.0 06/16/2018 Pt Yyw4781 Mod intensity - 2.0-3.0 06/16/2018 Pt Uwm8500 Hi intensity - 3.0-4.0 06/16/2018 C A/B FLU 2968177 Influenza A Scr Negative 06/16/2018 C A/B FLU 9734231 Influenza B Scr Negative 06/16/2018 C A/B FLU 5302560 Influenza Intrp B AG: PRID:PT:NOSE:NOM:IF See Footnote 06/16/2018 Pt Lno8509 PT 14.3 seconds 06/11/2018 Pt Zky5643 INR 1.1 06/11/2018 Pt Pxe1483 Low Intensity - 1.5-2.0 06/11/2018 Pt Hmv6411 Mod intensity - 2.0-3.0 06/11/2018 Pt Yhx6804 Hi intensity - 3.0-4.0 06/11/2018 Pt Xvz4993 PT 25.1 seconds 05/06/2018 Pt Tnb6765 INR 2.3 05/06/2018 Pt Fta4821 Low Intensity - 1.5-2.0 05/06/2018 Pt Qet9782 Mod intensity - 2.0-3.0 05/06/2018 Pt Gdl6637 Hi intensity - 3.0-4.0 05/06/2018 Pt Uwi6178 PT 28.0 seconds 04/12/2018 Pt Qyn9594 INR 2.7 04/12/2018 Pt Eur6505 Low Intensity - 1.5-2.0 04/12/2018 Pt Ibh0883 Mod intensity - 2.0-3.0 04/12/2018 Pt Arg8845 Hi intensity - 3.0-4.0 04/12/2018 Pt Iff9781 PT 24.4 seconds 03/03/2018 Pt Xyk8568 INR 2.2 03/03/2018 Pt Jed9382 Low Intensity - 1.5-2.0 03/03/2018 Pt Wom5809 Mod intensity - 2.0-3.0 03/03/2018 Pt Cyf7759 Hi intensity - 3.0-4.0 03/03/2018 Pt Eeg0258 PT 28.9 seconds 02/15/2018 Pt Fux5484 INR 2.8 02/15/2018 Pt Cui3480 Low Intensity - 1.5-2.0 02/15/2018 Pt Glo4957 Mod intensity - 2.0-3.0 02/15/2018 Pt Qra1867 Hi intensity - 3.0-4.0 02/15/2018 Pt Lij1041 PT 27.2 seconds 02/02/2018 Pt Hua3858 INR 2.6 02/02/2018 Pt Glw7299 Low Intensity - 1.5-2.0 02/02/2018 Pt Nmq7778 Mod intensity - 2.0-3.0 02/02/2018 Pt Olh1826 Hi intensity - 3.0-4.0 02/02/2018 Pt Iyn8515 PT 18.2 seconds 01/28/2018 Pt Gtb9849 INR 1.6 01/28/2018 Pt Szk0845 Low Intensity - 1.5-2.0 01/28/2018 Pt Cwy9521 Mod intensity - 2.0-3.0 01/28/2018 Pt Rwq5569 Hi intensity - 3.0-4.0 01/28/2018 Pt Wls3275 PT 19.8 seconds 01/22/2018 Pt Whp7376 INR 1.7 01/22/2018 Pt Fvh6791 Low Intensity - 1.5-2.0 01/22/2018 Pt Uvy8045 Mod intensity - 2.0-3.0 01/22/2018 Pt Omx8139 Hi intensity - 3.0-4.0 01/22/2018 Pt Koy3230 PT 38.3 seconds 01/15/2018 Pt Gaj0496 INR 3.8 01/15/2018 Pt Tzk0721 Low Intensity - 1.5-2.0 01/15/2018 Pt Zge0446 Mod intensity - 2.0-3.0 01/15/2018 Pt Shv2500 Hi intensity - 3.0-4.0 01/15/2018 Pt Fco4982 PT 27.1 seconds 01/05/2018 Pt Ify0363 INR 2.5 01/05/2018 Pt Vkn8693 Low Intensity - 1.5-2.0 01/05/2018 Pt Ykm2767 Mod intensity - 2.0-3.0 01/05/2018 Pt Num5892 Hi intensity - 3.0-4.0 01/05/2018 Pt Lck4712 PT 27.2 seconds 12/25/2017 Pt Cay9496 INR 2.5 12/25/2017 Pt Mdz7541 Low Intensity - 1.5-2.0 12/25/2017 Pt Lxq8879 Mod intensity - 2.0-3.0 12/25/2017 Pt Kia8453 Hi intensity - 3.0-4.0 12/25/2017 Pt Wfe2928 PT 22.2 seconds 12/09/2017 Pt Ffg1824 INR 2.0 12/09/2017 Pt Bnz3045 Low Intensity - 1.5-2.0 12/09/2017 Pt Ohn1509 Mod intensity - 2.0-3.0 12/09/2017 Pt Ham6377 Hi intensity - 3.0-4.0 12/09/2017 Pt Apr5952 PT 20.5 seconds 11/27/2017 Pt Dku5502 INR 1.8 11/27/2017 Pt Nwi9393 Low Intensity - 1.5-2.0 11/27/2017 Pt Lfh9818 Mod intensity - 2.0-3.0 11/27/2017 Pt Ajr9236 Hi intensity - 3.0-4.0 11/27/2017 Pt Nha0655 PT 16.8 seconds 11/23/2017 Pt Emw5146 INR 1.4 11/23/2017 Pt Ndl3198 Low Intensity - 1.5-2.0 11/23/2017 Pt Cou4061 Mod intensity - 2.0-3.0 11/23/2017 Pt Wjj4298 Hi intensity - 3.0-4.0 11/23/2017 Pt Sxu5259 PT 13.4 seconds 11/20/2017 Pt Ope3928 INR 1.1 11/20/2017 Pt Usm3063 Low Intensity - 1.5-2.0 11/20/2017 Pt Gqp6776 Mod intensity - 2.0-3.0 11/20/2017 Pt Adz7608 Hi intensity - 3.0-4.0 11/20/2017 Pt Dge3382 PT 29.3 seconds 09/22/2017 Pt Mil2197 INR 2.7 09/22/2017 Pt Iem8254 Low Intensity - 1.5-2.0 09/22/2017 Pt Off9186 Mod intensity - 2.0-3.0 09/22/2017 Pt Wdg2856 Hi intensity - 3.0-4.0 09/22/2017 Pt Cvf2727 PT 24.6 seconds 08/27/2017 Pt Vnz8636 INR 2.2 08/27/2017 Pt Gbw5138 Low Intensity - 1.5-2.0 08/27/2017 Pt Xmc2992 Mod intensity - 2.0-3.0 08/27/2017 Pt Kts2767 Hi intensity - 3.0-4.0 08/27/2017 Pt Fat8693 PT 24.9 seconds 08/03/2017 Pt Ldj4971 INR 2.3 08/03/2017 Pt Wiw1153 Low Intensity - 1.5-2.0 08/03/2017 Pt Cem5429 Mod intensity - 2.0-3.0 08/03/2017 Pt Dby5583 Hi intensity - 3.0-4.0 08/03/2017 Pt Nhb3076 PT 24.4 seconds 06/17/2017 Pt Pms7536 INR 2.2 06/17/2017 Pt Gip9180 Low Intensity - 1.5-2.0 06/17/2017 Pt Giw6643 Mod intensity - 2.0-3.0 06/17/2017 Pt Ccm4282 Hi intensity - 3.0-4.0 06/17/2017 Pt Fgc1433 PT 26.8 seconds 06/01/2017 Pt Lse2273 INR 2.5 06/01/2017 Pt Qzx3662 Low Intensity - 1.5-2.0 06/01/2017 Pt Qmt2335 Mod intensity - 2.0-3.0 06/01/2017 Pt Qbv9234 Hi intensity - 3.0-4.0 06/01/2017 Pt Nmx3913 PT 18.8 seconds 05/18/2017 Pt Fue8780 INR 1.6 05/18/2017 Pt Qwn3260 Low Intensity - 1.5-2.0 05/18/2017 Pt Mmn9807 Mod intensity - 2.0-3.0 05/18/2017 Pt Axq6470 Hi intensity - 3.0-4.0 05/18/2017 Pt Tzj7968 PT 18.6 seconds 04/27/2017 Pt Jph2901 INR 1.6 04/27/2017 Pt Npy3334 Low Intensity - 1.5-2.0 04/27/2017 Pt Obw8311 Mod intensity - 2.0-3.0 04/27/2017 Pt Way0433 Hi intensity - 3.0-4.0 04/27/2017 Pt Zij8826 PT 26.1 seconds 04/13/2017 Pt Syi7449 INR 2.4 04/13/2017 Pt Jbn3898 Low Intensity - 1.5-2.0 04/13/2017 Pt Xel1819 Mod intensity - 2.0-3.0 04/13/2017 Pt Mao0855 Hi intensity - 3.0-4.0 04/13/2017 Comp Metabolic Nuf068 NA 140 mEq/L 03/17/2017 Comp Metabolic Xuu675 K 4.4 mEq/L 03/17/2017 Comp Metabolic Neh656 CL 104 mEq/L 03/17/2017 Comp Metabolic Agg640 CO2 30.0 mEq/L 03/17/2017 Comp Metabolic Yrv647 ANION GAP 10 03/17/2017 Comp Metabolic Geo654 GLUCOSE 122 mg/dL 03/17/2017 Comp Metabolic Yix096 Creat 0.9 mg/dL 03/17/2017 Comp Metabolic Icf152 eGFR 82 ml/min/1.73m2 03/17/2017 Comp Metabolic Hsr344 BUN 22 mg/dL 03/17/2017 Comp Metabolic Kes649 B/C Ratio 23.7 Ratio 03/17/2017 Comp Metabolic Bxl271 CALCIUM 10.3 mg/dL 03/17/2017 Comp Metabolic Cxi255 ALK PHOS 62 U/L 03/17/2017 Comp Metabolic Uzd764 AST(SGOT) 19 U/L 03/17/2017 Comp Metabolic Mgd469 ALT(SGPT) 21 U/L 03/17/2017 Comp Metabolic Zza996 BILI T 0.5 mg/dL 03/17/2017 Comp Metabolic Bgg724 ALBUMIN 4.1 g/dL 03/17/2017 Comp Metabolic Xqg308 TPRO 6.9 g/dL 03/17/2017 Comp Metabolic Hoh675 GLOB 2.8 g/dL 03/17/2017 Comp Metabolic Epq485 A/G Ratio 1.5 Ratio 03/17/2017 Comp Metabolic Wvh399 Osmo 284 mOsmo 03/17/2017 Lipid Ord30 CHOL [...] Ord30 C/HDL 2.1 Ratio 03/17/2017 Comp Metabolic Wob137 NA 140 mEq/L 03/17/2017 Comp Metabolic Qpo103 K 4.4 mEq/L 03/17/2017 Comp Metabolic Wgd784 CL 104 mEq/L 03/17/2017 Comp Metabolic Ole796 CO2 30.0 mEq/L 03/17/2017 Comp Metabolic Oep714 ANION GAP 10 03/17/2017 Comp Metabolic Vbg878 GLUCOSE 122 mg/dL 03/17/2017 Comp Metabolic Aiq121 Creat 0.9 mg/dL 03/17/2017 Comp Metabolic Dsd192 eGFR 82 ml/min/1.73m2 03/17/2017 Comp Metabolic Cnt780 BUN 22 mg/dL 03/17/2017 Comp Metabolic Ukl038 B/C Ratio 23.7 Ratio 03/17/2017 Comp Metabolic Nij539 CALCIUM 10.3 mg/dL 03/17/2017 Comp Metabolic Ona747 ALK PHOS 62 U/L 03/17/2017 Comp Metabolic Kbc296 AST(SGOT) 19 U/L 03/17/2017 Comp Metabolic Ojm680 ALT(SGPT) 21 U/L 03/17/2017 Comp Metabolic Tid934 BILI T 0.5 mg/dL 03/17/2017 Comp Metabolic Gaw465 ALBUMIN 4.1 g/dL 03/17/2017 Comp Metabolic Viw572 TPRO 6.9 g/dL 03/17/2017 Comp Metabolic Wdc827 GLOB 2.8 g/dL 03/17/2017 Comp Metabolic Mfu263 A/G Ratio 1.5 Ratio 03/17/2017 Comp Metabolic Ehj053 Osmo 284 mOsmo 03/17/2017 Pt Qki3653 PT 23.7 seconds 03/12/2017 Pt Awh7793 INR 2.1 03/12/2017 Pt Lxr1222 Low Intensity - 1.5-2.0 03/12/2017 Pt Ocd7834 Mod intensity - 2.0-3.0 03/12/2017 Pt Jzs0546 Hi intensity - 3.0-4.0 03/12/2017 Pt Ayw0401 PT 21.3 seconds 02/10/2017 Pt Usv1104 INR 1.9 02/10/2017 Pt Ciy9252 Low Intensity - 1.5-2.0 02/10/2017 Pt Ylt6363 Mod intensity - 2.0-3.0 02/10/2017 Pt Xou0066 Hi intensity - 3.0-4.0 02/10/2017 Pt Xke5172 PT 21.4 seconds 01/27/2017 Pt Ovt0286 INR 1.9 01/27/2017 Pt Phf1106 Low Intensity - 1.5-2.0 01/27/2017 Pt Aop2037 Mod intensity - 2.0-3.0 01/27/2017 Pt Cyb4447 Hi intensity - 3.0-4.0 01/27/2017 Pt Ljn0541 PT 22.0 seconds 01/19/2017 Pt Nnh5145 INR 1.9 01/19/2017 Pt Qto0075 Low Intensity - 1.5-2.0 01/19/2017 Pt Ltp6806 Mod intensity - 2.0-3.0 01/19/2017 Pt Cpc0498 Hi intensity - 3.0-4.0 01/19/2017 Pt Fkc3230 PT 28.3 seconds 01/05/2017 Pt Lsh3271 INR 2.6 01/05/2017 Pt Cxh6780 Low Intensity - 1.5-2.0 01/05/2017 Pt Jtl7768 Mod intensity - 2.0-3.0 01/05/2017 Pt Xhd8752 Hi intensity - 3.0-4.0 01/05/2017 Pt Tfz3571 PT 29.1 seconds 12/15/2016 Pt Btj2271 INR 2.7 12/15/2016 Pt Qrl1527 Low Intensity - 1.5-2.0 12/15/2016 Pt Vxs9110 Mod intensity - 2.0-3.0 12/15/2016 Pt Aqh1799 Hi intensity - 3.0-4.0 12/15/2016 Urine Culture Ucult Preliminary NO Growth Day 1 11/10/2016 Urine Culture Ucult Complete NO Growth Day 2 11/10/2016 Pt Ett7209 PT 23.7 seconds 11/07/2016 Pt Slh9943 INR 2.1 11/07/2016 Pt Fna2284 Low Intensity - 1.5-2.0 11/07/2016 Pt Tsn9581 Mod intensity - 2.0-3.0 11/07/2016 Pt Vbd7773 Hi intensity - 3.0-4.0 11/07/2016 Pt Odk7472 PT 27.1 seconds 10/13/2016 Pt Gns2070 INR 2.7 10/13/2016 Pt Pjk7384 Low Intensity - 1.5-2.0 10/13/2016 Pt Jut0526 Mod intensity - 2.0-3.0 10/13/2016 Pt Sab5800 Hi intensity - 3.0-4.0 10/13/2016 Pt Kji1340 PT 26.3 seconds 09/23/2016 Pt Ous9147 INR 2.6 09/23/2016 Pt Ogl0407 Low Intensity - 1.5-2.0 09/23/2016 Pt Xoi1070 Mod intensity - 2.0-3.0 09/23/2016 Pt Dri0738 Hi intensity - 3.0-4.0 09/23/2016 Pt Kaf2093 PT 20.4 seconds 09/09/2016 Pt Qzh8024 INR 1.8 09/09/2016 Pt Zpf8982 Low Intensity - 1.5-2.0 09/09/2016 Pt Kax3712 Mod intensity - 2.0-3.0 09/09/2016 Pt Txs3282 Hi intensity - 3.0-4.0 09/09/2016 Pt Dsw6132 PT 24.1 seconds 08/26/2016 Pt Rec3622 INR 2.3 08/26/2016 Pt Zmk2663 Low Intensity - 1.5-2.0 08/26/2016 Pt Vhp3240 Mod intensity - 2.0-3.0 08/26/2016 Pt Hsc8480 Hi intensity - 3.0-4.0 08/26/2016 Pt Hep9528 PT 26.1 seconds 08/12/2016 Pt Vai7501 INR 2.6 08/12/2016 Pt Cie9039 Low Intensity - 1.5-2.0 08/12/2016 Pt Mad5270 Mod intensity - 2.0-3.0 08/12/2016 Pt Xlw5638 Hi intensity - 3.0-4.0 08/12/2016 Pt Toj0803 PT 23.5 seconds 07/15/2016 Pt Emc4585 INR 2.2 07/15/2016 Pt Vls5256 Low Intensity - 1.5-2.0 07/15/2016 Pt Qdf3546 Mod intensity - 2.0-3.0 07/15/2016 Pt Bug7785 Hi intensity - 3.0-4.0 07/15/2016 Urine Culture Ucult Preliminary NO Growth Day 1 07/10/2016 Urine Culture Ucult Complete NO Growth Day 2 07/10/2016 Pt Cjn0709 PT 27.9 seconds 06/30/2016 Pt Bpv3310 INR 2.8 06/30/2016 Pt Cwr3496 Low Intensity - 1.5-2.0 06/30/2016 Pt Rsm6144 Mod intensity - 2.0-3.0 06/30/2016 Pt Lqb7752 Hi intensity - 3.0-4.0 06/30/2016 Pt Jgs2338 PT 23.7 seconds 06/12/2016 Pt Ryz1732 INR 2.3 06/12/2016 Pt Ayy1825 Low Intensity - 1.5-2.0 06/12/2016 Pt Oif3902 Mod intensity - 2.0-3.0 06/12/2016 Pt Kyg3804 Hi intensity - 3.0-4.0 06/12/2016 Pt Olz6410 PT 36.5 seconds 06/06/2016 Pt Ort2896 INR 4.0 06/06/2016 Pt Dqk4072 Low Intensity - 1.5-2.0 06/06/2016 Pt Los5448 Mod intensity - 2.0-3.0 06/06/2016 Pt Swt8502 Hi intensity - 3.0-4.0 06/06/2016 Tibc Ord40 Iron 76 ug/dl 05/05/2016 Tibc Ord40 UIBC 210 ug/dL 05/05/2016 Tibc Ord40 TIBC 286 ug/dL 05/05/2016 Tibc Ord40 Fe-%Sat 26.6 % 05/05/2016 Pt Qtk3387 PT 29.0 seconds 05/05/2016 Pt Dkx9807 INR 2.9 05/05/2016 Pt Rvj3782 Low Intensity - 1.5-2.0 05/05/2016 Pt Dbk9942 Mod intensity - 2.0-3.0 05/05/2016 Pt Mmt2491 Hi intensity - 3.0-4.0 05/05/2016 Ferritin Ord22 FERRITIN 32.7 ng/mL 05/05/2016 Pt Bkw2122 PT 31.1 seconds 04/08/2016 Pt Pot2104 INR 3.2 04/08/2016 Pt Mez7948 Low Intensity - 1.5-2.0 04/08/2016 Pt Exf5197 Mod intensity - 2.0-3.0 04/08/2016 Pt Qvt5865 Hi intensity - 3.0-4.0 04/08/2016 Cbc With [...] 32.4 pg 03/24/2016 Cbc With Differential Ord2 Dent% 11.3 % 03/24/2016 Cbc With Differential Ord2 [...] 2.29 K/ul 03/24/2016 Cbc With Differential Ord2 Dent ABS# 0.8 K/ul 03/24/2016 Cbc With Differential Ord2 Eos ABS# 0.5 K/ul 03/24/2016 Cbc With Differential Ord2 Baso ABS# 0.0 K/ul 03/24/2016 Pt Lkh0922 PT 17.3 seconds 03/24/2016 Pt Frs9608 INR 1.5 03/24/2016 Pt Ssc9925 Low Intensity - 1.5-2.0 03/24/2016 Pt Muk4946 Mod intensity - 2.0-3.0 03/24/2016 Pt Frf5461 Hi intensity - 3.0-4.0 03/24/2016 Pt Wbo4764 PT 17.8 seconds 03/12/2016 Pt Zgl3238 INR 1.5 03/12/2016 Pt Rww8454 Low Intensity - 1.5-2.0 03/12/2016 Pt Hwp8158 Mod intensity - 2.0-3.0 03/12/2016 Pt Iir5901 Hi intensity - 3.0-4.0 03/12/2016 Urine Culture Ucult Preliminary NO Growth Day 1 02/29/2016 Urine Culture Ucult Complete NO Growth Day 2 02/29/2016 Lipid Ord30 CHOL 129 mg/dL 02/21/2016 Lipid Ord30 HDL 59.0 mg/dl 02/21/2016 Lipid Ord30 TRIG 90 mg/dL 02/21/2016 Lipid Ord30 LDL 52 mg/dL 02/21/2016 Lipid Ord30 C/HDL 2.2 Ratio 02/21/2016 Comp Metabolic Hjx970 NA 136 mEq/L 02/21/2016 Comp Metabolic Grb907 K 4.4 mEq/L 02/21/2016 Comp Metabolic Ogq119 CL 102 mEq/L 02/21/2016 Comp Metabolic Ljk617 CO2 29.0 mEq/L 02/21/2016 Comp Metabolic Ffa319 ANION GAP 9 02/21/2016 Comp Metabolic Uio885 GLUCOSE 118 mg/dL 02/21/2016 Comp Metabolic Dkd823 Creat 1.0 mg/dL 02/21/2016 Comp Metabolic Xzp348 eGFR 72 ml/min/1.73m2 02/21/2016 Comp Metabolic Tvz838 BUN 23 mg/dL 02/21/2016 Comp Metabolic Lvp481 B/C Ratio 22.1 Ratio 02/21/2016 Comp Metabolic Ham514 CALCIUM 9.9 mg/dL 02/21/2016 Comp Metabolic Qdx596 ALK PHOS 57 U/L 02/21/2016 Comp Metabolic Mhx172 AST(SGOT) 17 U/L 02/21/2016 Comp Metabolic Stk504 ALT(SGPT) 19 U/L 02/21/2016 Comp Metabolic Qbh532 BILI T 0.6 mg/dL 02/21/2016 Comp Metabolic Ieh954 ALBUMIN 3.9 g/dL 02/21/2016 Comp Metabolic Bxt177 TPRO 6.9 g/dL 02/21/2016 Comp Metabolic Aaf328 GLOB 3.0 g/dL 02/21/2016 Comp Metabolic Jjq425 A/G Ratio 1.3 Ratio 02/21/2016 Comp Metabolic Mqa142 Osmo 277 mOsmo 02/21/2016 Pt Usl4034 PT 19.8 seconds 02/21/2016 Pt Wcv4628 INR 1.8 02/21/2016 Pt Rjo8991 Low Intensity - 1.5-2.0 02/21/2016 Pt Ywy5263 Mod intensity - 2.0-3.0 02/21/2016 Pt Jyv3805 Hi intensity - 3.0-4.0 02/21/2016 Pt Kfw1146 PT 24.1 seconds 01/15/2016 Pt Ukd3254 INR 2.3 01/15/2016 Pt Cqw3198 Low Intensity - 1.5-2.0 01/15/2016 Pt Wqq0077 Mod intensity - 2.0-3.0 01/15/2016 Pt Cch9735 Hi intensity - 3.0-4.0 01/15/2016 Pt Bay5294 PT 26.5 seconds 01/03/2016 Pt Xxd1561 INR 2.6 01/03/2016 Pt Lbf2056 Low Intensity - 1.5-2.0 01/03/2016 Pt Thw4432 Mod intensity - 2.0-3.0 01/03/2016 Pt Rmx0069 Hi intensity - 3.0-4.0 01/03/2016 Pt Aum1655 PT 15.3 seconds 11/30/2015 Pt Xvv8981 INR 1.3 11/30/2015 Pt Ycg4540 Low Intensity - 1.5-2.0 11/30/2015 Pt Jja1602 Mod intensity - 2.0-3.0 11/30/2015 Pt Wcz4953 Hi intensity - 3.0-4.0 11/30/2015 Review of [...] scabbing 06/16/2018 None Full Exam - General [facility] Constitutional general appearance Development: well developed 04/23/2018 None Full Exam - General 1994 Constitutional general appearance Development: appears stated age 0104/23/2018 None Full Exam - General 1994 Constitutional general appearance Hygiene/Attention to Grooming: good hygiene 04/23/2018 None Full Exam - General 1994 Eyes conjunctiva /eyelids Overall: conjunctiva clear 04/23/2018 [...] lips 04/23/2018 None Full Exam - General 1994 Ears/Nose/Throat lips/teeth/gingiva Overall: normal dentition 04/23/2018 None Full Exam - General 1994 Ears/Nose/Throat oral cavity/pharynx/larynx Overall: oral mucosa clear 04/23/2018 None Full Exam - General 1994 Ears/Nose/Throat oral cavity/pharynx/larynx Overall: oropharyngeal mucosa clear 04/23/2018 None Full Exam - General 1994 Ears/Nose/Throat oral cavity/pharynx/larynx Overall: hypopharynx benign 04/23/2018 [...] sounds 04/23/2018 None Full Exam - General 1995 Musculoskeletal spine, ribs and pelvis Overall: spine benign 04/23/2018 None Full Exam - General 1994 Musculoskeletal spine, ribs and pelvis Overall: sacroiliac joint benign 04/23/2018 None Full Exam - General 1995 Musculoskeletal spine, ribs and pelvis Overall: good [...] lips 04/12/2018 None Full Exam - General 1995 Ears/Nose/Throat lips/teeth/gingiva Overall: normal dentition 04/12/2018 None Full Exam - General 1994 [...] dentition 12/15/2016 None Full Exam - General 1995 [...] Procedure Codes Date THER/PROPH/DIAG INJ SC/IM CPT-4: 31796 06/16/2018 TRIAMCINOLONE ACET INJ NOS CPT-4: J3301 06/16/2018 TRIAMCINOLONE ACET INJ NOS CPT-4: J3301 04/23/2018 ADMIN INFLUENZA VIRUS VAC CPT-4: G0008 01/04/2018 FLU VACC PRSV FREE INC ANTIG Formatting Model/CDA Sections, Assigned to/Arabella Carballo CPT-4: [id number] 01/04/2018 URINALYSIS NONAUTO W/O SCOPE CPT-4: 97379 11/07/2016 URINALYSIS NONAUTO W/O SCOPE CPT-4: 78026 02/26/2016 ADMIN INFLUENZA VIRUS VAC CPT-4: G0008 01/03/2016 FLU VACC 4 ARIANNA 3 YRS PLUS IM SNOMED CT: [id number] CPT-4: 71793 01/03/2016 Vital Signs Date Vital 06/16/2018 Blood Pressure 1: 130/78 Code : 8480-6 Heart Rate 1: 85 bpm Height: 5'4" SpO2: 97% Temperature: 37.1 (C) / 98.8 (F) Weight: 04/23/2018 Blood Pressure 1: 118/64 Code : 8480-6 BMI: 35.0 Code : 82306-6 Heart Rate 1 : 88 bpm Height: 5'4" SpO2: 96% Temperature: 36.3 (C) / 97.4 (F) Weight: 204 lbs 04/12/2018 Blood Pressure 1: 144/76 Code : 8480-6 BMI: 35.0 Code : 98925-2 Heart Rate 1 : 75 bpm Height: 5'4" SpO2: 98% Weight: 204 lbs 03/08/2018 Blood Pressure 1: 124/70 Code : 8480-6 Heart Rate 1: 84 bpm Height: 5'4" SpO2: 92% Weight: 03/02/2018 Blood Pressure 1: 138/76 Code : 8480-6 Heart Rate 1: 87 bpm Height: 5'4" SpO2: 98% Weight: 02/26/2018 Blood Pressure 1: 148/68 Code : 8480-6 BMI: 35.0 Code : 81458-2 Heart Rate 1 : 80 bpm Height: 5'4" SpO2: 97% Weight: 204 lbs 01/28/2018 Blood Pressure 1: 150/60 Code : 8480-6 Heart Rate 1: 91 bpm SpO2: 92% 12/29/2017 Blood Pressure 1: 144/62 Code : 8480-6 BMI: 34.7 Code : 85179-6 Heart Rate 1 : 73 bpm Height: 5'4" SpO2: 97% Weight: 202 lbs 09/29/2017 Blood Pressure 1: 132/80 Code : 8480-6 Heart Rate 1: 76 bpm SpO2: 97% Weight: 204 lbs 08/11/2017 Blood Pressure 1: 132/66 Code : 8480-6 BMI: 35.0 Code : 74355-6 Heart Rate 1 : 81 bpm Height: 5'4" SpO2: 96% Weight: 204 lbs 03/16/2017 Blood Pressure 1: 132/70 Code : 8480-6 BMI: 34.5 Code : 47047-9 Heart Rate 1 : 78 bpm Height: 5'4" SpO2: 98% Weight: 201 lbs 12/15/2016 Blood Pressure 1: 140/80 Code : 8480-6 BMI: 34.2 Code : 07676-6 Heart Rate 1 : 69 bpm Height: 5'4" SpO2: 98% Weight: 199 lbs 11/07/2016 Blood Pressure 1: 158/82 Code : 8480-6 BMI: 34.7 Code : 13962-6 Heart Rate 1 : 76 bpm Height: 5'4" SpO2: 98% Weight: 202 lbs 10/14/2016 Blood Pressure 1: 140/80 Code : 8480-6 BMI: 34.0 Code : 60416-1 Heart Rate 1 : 79 bpm Height: 5'4" SpO2: 96% Weight: 198 lbs 09/10/2016 Blood Pressure 1: 158/80 Code : 8480-6 BMI: 34.3 Code : 17144-2 Heart Rate 1 : 75 bpm Height: 5'4" SpO2: 98% Weight: 200 lbs 07/08/2016 Blood Pressure 1: 160/74 Code : 8480-6 BMI: 35.2 Code : 18422-4 Heart Rate 1 : 94 bpm Height: 5'4" SpO2: 97% Weight: 205 lbs 06/16/2016 Blood Pressure 1: 138/76 Code : 8480-6 BMI: 35.0 Code : 64579-0 Heart Rate 1 : 68 bpm Height: 5'4" SpO2: 98% Weight: 204 lbs 01/31/2016 Blood Pressure 1: 136/64 Code : 8480-6 BMI: 33.6 Code : 49320-3 Heart Rate 1 : 92 bpm Height: 5'4" SpO2: 98% Weight: 196 lbs 01/03/2016 Blood Pressure 1: 142/68 Code : 8480-6 BMI: 33.8 Code : 96404-3 Heart Rate 1 : 80 bpm Height: 5'4" SpO2: 97% Weight: 197 lbs 11/30/2015 Blood Pressure 1: 158/80 Code : 8480-6 Heart Rate 1: 83 bpm SpO2: 98% 11/21/2015 Blood Pressure 1: 172/80 Code : 8480-6 BMI: 32.8 Code : 96395-4 Heart Rate 1 : 87 bpm Height: [...] J06.0] Diagnosis: Other allergic rhinitis[ICD10: J30.89] Diagnosis: FPC (current) use of anticoagulants[ICD10: Z79.01] Octavia Gallardo MD, [facility] CPT-4: 82471 06/16/2018 ([id number]) 42706 EST. PATIENT, LEVEL III Diagnosis: Cough[ICD10: R05] Diagnosis: Acute upper respiratory infection, unspecified[ICD10: J06.9] Kelli Gallardo MD, [facility] CPT-4: 36409 04/23/2018 ([id number]) 31586 EST. PATIENT, LEVEL IV Diagnosis: Essential (primary) hypertension[ICD10: I10] Diagnosis: Malignant neoplasm of prostate[ICD10: C61] Diagnosis: Personal history of malignant neoplasm of prostate[ICD10: Z85.46] Diagnosis: FPC (current) use of anticoagulants[ICD10: Z79.01] Pamela Gallardo MD, [facility] CPT-4: 91980 04/12/2018 ([id number]) 64631 EST. PATIENT, LEVEL II Diagnosis: Cellulitis of right lower limb[ICD10: L03.115] [facility] CPT-4: 69777 03/08/2018 ([id number]) Miscellaneous no charge Diagnosis: Cellulitis of right lower limb[ICD10: L03.115] [facility] CPT-4: 63529 03/02/2018 ([id number]) 61765 EST. PATIENT, LEVEL III Diagnosis: Cellulitis of right lower limb[ICD10: L03.115] Kelli Gallardo MD, [facility] CPT-4: 78479 02/26/2018 50696 EST. PATIENT, LEVEL III Diagnosis: Cellulitis of left lower limb[ICD10: L03.116] Octavia Elliot Gallardo MD, [facility] CPT-4: 26882 01/28/2018 ([id number]) 49821 EST. PATIENT, LEVEL III Diagnosis: Essential (primary) hypertension[ICD10: I10] Diagnosis: FPC (current) use of anticoagulants[ICD10: Z79.01] Diagnosis: Nocturia[ICD10: R35.1] Pamela Gallardo MD, [facility] CPT-4: 91275 12/29/2017 ([id number]) 33221 EST. PATIENT, LEVEL IV Diagnosis: Essential (primary) hypertension[ICD10: I10] Diagnosis: Urge incontinence[ICD10: N39.41] Pamela Gallardo MD, [facility] CPT-4: 27146 09/29/2017 ([id number]) 37809 EST. 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 PATIENT, LEVEL IV Diagnosis: Essential (primary) hypertension[ICD10: I10] Diagnosis: Mixed hyperlipidemia[ICD10: E78.2] Diagnosis: Gross hematuria[ICD10: R31.0] Pamela Gallardo MD, [facility] CPT- 4: 93534 10/14/2016 ([id number]) 93277 EST. PATIENT, LEVEL IV Diagnosis: Essential (primary) hypertension[ICD10: I10] Diagnosis: FPC (current) use of anticoagulants[ICD10: Z79.01] Diagnosis: Mixed hyperlipidemia[ICD10: E78.2] Pamela Gallardo MD, [facility] CPT-4: 92570 09/10/2016 19033 EST. PATIENT, LEVEL III Diagnosis: Gross hematuria[ICD10: R31.0] Octavia Elliot Gallardo MD, [facility] CPT-4 : 65668 07/08/2016 ([id number]) 94101 EST. PATIENT, LEVEL IV Diagnosis: Essential (primary) hypertension[ICD10: I10] Diagnosis: Mixed hyperlipidemia[ICD10: E78.2] Diagnosis: FPC (current) use of anticoagulants[ICD10: Z79.01] Pamela Gallardo MD, [facility] CPT-4: 37934 06/16/2016 ([id number]) 79005 EST. PATIENT, LEVEL IV Diagnosis: Essential (primary) hypertension[ICD10: I10] Diagnosis: Mixed hyperlipidemia[ICD10: E78.2] Pamela Gallardo MD, [facility] CPT-4: 41140 01/31/2016 ([id number]) 84594 EST. PATIENT, LEVEL IV Diagnosis: Essential (primary) hypertension[ICD10: I10] Diagnosis: Mixed hyperlipidemia[ICD10: E78.2] Diagnosis: Encounter for immunization[ICD10: Z23] Pamela Gallardo MD, [facility] CPT-4: 42574 01/03/2016 ([id number]) Miscellaneous no charge Diagnosis: Essential (primary) hypertension[ICD10: I10] [facility] CPT-4: 90344 11/30/2015 ([id number]) OFFICE VISIT, NEW - LEVEL 4 Diagnosis: Essential (primary) hypertension[ICD10: I10] Diagnosis: Mixed hyperlipidemia[ICD10: E78.2] Diagnosis: Impacted cerumen, bilateral[ICD10: H61.23] [facility] CPT-4: 63426 11/21/2015 Plan of Care Planned Activity Notes [...] allergy spray. 06/16/2018 Appointment: Octavia Zarate WPtel: [facility] (30 min) Complex 06/16/2018 Patient Education: Patient Medication Summary Completed 06/16/2018 Visit Plan: URI - Pt advised to increase fluids, vitamin C. Discussed natural and expected course of this diagnosis and need to alert me if symptoms do not follow expected course, or if any worse. RX sent to patient' s pharmacy. 04/23/2018 Appointment: Kelli Mccullough WPtel: [phone] (15 min) Moderate 04/23/2018 Patient Education: [...] plans for patient to have chemotherapy through [facility] - Dr. Amin. Chronic Anticoagulant use - Pt has been counseled about the anticoagulant, need for serial monitoring, and need for the pt to alert the physician as to any new bruising, or acute bleeding. Therapeutic goal for INR is between 2.0 and 3.5. 04/12/2018 Appointment: Pamela Gallardo WPtel: [id number] [place] (15 min) Moderate 04/12/2018 Patient Education: Patient Medication Summary Completed 04/12/2018 Visit Plan: Ulcer of right leg -healed-no further treatment indicated 03/08/2018 Appointment: Kelli Mccullough WPtel: [phone] [phone] [place] (15 min) Moderate 03/08/2018 Patient Education: Patient Medication Summary Completed 03/08/2018 Visit Plan: Ulcer of leg -improved-continue wound care as directed-follow up in 1 week, sooner if needed 03/02/2018 Appointment: Kelli Mccullough WPtel: [phone] [phone] [place] (15 min) Moderate 03/02/2018 Patient Education: Patient Medication Summary Completed 03/02/2018 Visit Plan: Cellulitis - continue with oral antibiotics as previously directed, return to clinic as previously directed, call for acute change in symptoms, worsening redness, warmth, discharge. 02/26/2018 Appointment: Kelli Mccullough WPtel: [phone] [phone] [place] (15 min) Moderate 02/26/2018 Patient Education: Patient Medication Summary Completed 02/26/2018 Visit Plan: Cellulitis - pt is to follow up with his surgeon - continue with oral antibiotics as previously directed, return to clinic as previously directed, call for acute change in symptoms, worsening redness, warmth, discharge. 01/28/2018 Appointment: Octavia Zarate WPtel: [phone] [facility] [place] (15 min) Moderate 01/28/2018 Patient Education: Patient [...] care. 12/29/2017 Appointment: Pamela Gallardo WPtel: [id number] (15 min) Moderate 12/29/2017 Patient Education: Patient Medication Summary Completed 12/29/2017 Appointment: Pamela Gallardo WPtel: [id number] Same Day appointments 12/16/2017 Visit Plan: Hypertension [...] Appointment: Pamela Gallardo WPtel: [phone] [id number] (15 min) Moderate 09/29/2017 Patient Education: Patient [...] INR good 08/11/2017 Appointment: Pam[facility] Gallardo [facility]el[phone] [place] (15 min) Moderate 08/11/2017 Patient Education: Patient Medication Summary Completed 08/11/2017 Appointment: Pamela Gallardo WPtel: [phone] [place] (15 min) Moderate 08/06/2017 Appointment: Pamela Gallardo WPtel: [phone] [place] (15 min) Moderate 08/04/2017 Visit Plan: Hypertension [...] monitor symptoms. 03/16/2017 Appointment: Pamela Gallardo WPtel: [id number] [place] (15 min) Moderate 03/16/2017 Patient Education: Patient Medication Summary Completed 03/16/2017 Patient Education: Obesity Completed 03/16/2017 Appointment: Pamela Gallardo WPtel: [phone] (15 min) Moderate 12/30/2016 Visit Plan: Hypertension [...] today. 12/15/2016 Appointment: Pamela Gallardo WPtel: [phone] (15 min) Moderate 12/15/2016 Patient Education: Patient Medication Summary Completed 12/15/2016 Visit Plan: Iron deficiency qioolh-glxm-cqpmxe bleeding- INR has been stable-continue multivitamin with iron daily Hematuria-3+ blood in urine-check PT/INR today-culture urine 11/07/2016 [facility]ment[phone] [place] (15 min) Moderate 11/07/2016 Patient [...] to medications. 10/14/2016 Appointment: Pamela Gallardo WPtel: [phone] [place] (15 min) Moderate 10/14/2016 Patient Education: Patient Medication Summary Completed 10/14/2016 Patient Education: Obesity Completed 10/14/2016 Appointment: Pamela Gallardo WPtel: [phone] [facility] [place] (15 min) Moderate 10/09/2016 Visit Plan: [...] concerns. 07/08/2016 Appointment: Octavia Zarate WPtel: [phone] [facility] (15 min) Moderate 07/08/2016 Patient Education: Patient [...] with coumadin. 06/16/2016 Appointment: Pamela Gallardo WPtel: [id number] (15 min) Moderate 06/16/2016 Patient Education: Patient Medication Summary Completed 06/16/2016 Patient Education: Obesity Completed 06/16/2016 Appointment: Pamela Gallardo WPtel: [id number] [place] (15 min) Moderate 05/22/2016 Patient Education: [...] Appointment: Pamela Gallardo WPtel: [phone] [id number] (15 min) Moderate 01/31/2016 Patient Education: Patient [...] medications. 01/03/2016 Appointment: Pamela Gallardo WPtel: [id number] (15 min) Moderate 01/03/2016 Patient Education: Patient [...] to medications. 11/21/2015 Appointment: Pamela Gallardo WPtel: [phone] New Patient 11/21/2015 Patient Education: Patient Medication Summary Completed 11/21/2015 Patient Education: Obesity Completed 11/21/2015 Instructions Comment vesicare 10mg one pill nightly - call [...] it to the pharmacy . Iron deficiency jnuner-czit-qgthcq bleeding-INR has been stable-continue multivitamin with iron [...] check labs serially - last INR good CHANGE DRESSING DAILY -CLEANSE WITH STERILE SALINE [...] INR is between 2.0 and 3.5. . URI - Pt advised to increase fluids, vitamin C. Discussed natural and expected course of this diagnosis and need to alert me if symptoms do not follow expected course, or if any worse. RX sent to patient's pharmacy. . Cellulitis - pt is to follow [...] assure normal liver response to medications. . Ulcer of leg -improved-continue wound care [...] spray in the nasal steroid allergy spray. . Hypertension - well controlled - continue [...]
--- OUTSIDE RECORDS SUMMARY | 2018-07-09 11:18 | XMS REPORT | CCD ---
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 ICD-9: V58.61 ICD-10: [...] Start Date Stop Date Status Fill Instructions mupirocin 2 % topical ointment RxNorm: 689420 1 Application TOP BID 06/17/2018 No Stop Date Active amoxicillin 500 mg capsule RxNorm: 296280 1 Capsule(s) PO TID 06/17/2018 06/16/2018 Inactive amoxicillin 500 mg capsule RxNorm: 612386 1 Capsule(s) PO TID 06/17/2018 06/26/2018 Inactive Kenalog 40 mg/mL suspension for injection RxNorm: 1307036 Milliliter(s) Inj 06/16/2018 06/16/2018 Inactive Kenalog 40 mg/mL suspension for injection RxNorm: 8189016 Milliliter(s) Inj 04/23/2018 04/23/2018 Inactive Keflex 500 mg capsule RxNorm: 669991 1 Capsule(s) PO TID 201804/29/2018 Inactive Keflex 500 mg capsule RxNorm: 203837 1 Capsule(s) PO TID 201703/04/2018 Inactive Bactrim DS 800 mg-160 mg tablet RxNorm: 832428 1 Tablet(s) PO BID 01/28/2018 02/06/2018 Inactive warfarin 5 mg tablet RxNorm: 528209 1 Tablet(s) PO UD on Thursday - goal for INR is 2.3 12/25/2017 08/21/2018 Active warfarin 7.5 mg tablet RxNorm: 564635 1 Tablet(s) PO daily except Sat take 5mg 12/25/2017 12/19/2018 Active Lovenox 40 mg/0.4 mL subcutaneous syringe RxNorm: 956227 1 Milliliter(s) SQ BID 10/14/2017 No Stop Date Active Holding coumadin x 5 days. Start the day after stopping coumadin for procedure. Hold the day of surgery. The day after surgery resume BID x 4 days. Vesicare 10 mg tablet RxNorm: 889824 1 Tablet(s) PO QPM 2017 No Stop Date Active lisinopril 20 mg tablet RxNorm: 325615 TAKE ONE TABLET BY MOUTH ONCE DAILY 06/23/2017 No Stop Date Active warfarin 5 mg tablet RxNorm: 165955 1 Tablet(s) PO UD on Thursday and - goal for INR is 2.3 02/11/2017 10/08/2017 Inactive lisinopril 20 mg tablet RxNorm: 221985 1 Tablet(s) PO daily 06/22/2017 Inactive warfarin 7.5 mg tablet RxNorm: 918812 1 Tablet(s) PO daily except 10/14/2016 10/08/2017 Inactive warfarin 5 mg tablet RxNorm: 739990 1 Tablet(s) PO UD on Thursday and - goal for INR is 2.3 10/14/2016 02/10/2017 Inactive warfarin 5 mg tablet RxNorm: 836927 1 Tablet(s) PO UD on Thursday10/14/2016 10/13/2016 Inactive warfarin 7.5 mg tablet RxNorm: 182964 1 Tablet(s) PO daily 10/13/2016 Inactive warfarin 7.5 mg tablet RxNorm: 077115 1 Tablet(s) PO daily 03/201708/17/2016 Inactive Norvasc 5 mg tablet RxNorm: 942623 1 Tablet(s) PO QPM 201512/14/2016 Inactive iron 65 mg RxNorm: 1 PO daily No Start Date Active aspirin 81 mg chewable tablet RxNorm: 793014 1 Tablet(s) PO daily No Start Date Active amlodipine 2.5 mg tablet RxNorm: 964719 1 Tablet(s) PO daily No Start Date Active PreserVision AREDS 2 oral RxNorm: 5023805 oral No Start Date Active prednisone 5 mg tablet RxNorm: 166431 1 Tablet(s) PO BID No Start Date Active Citracal + D3 (calcium phosphate) oral RxNorm: 9064801 oral No Start Date Active Centrum Silver tablet RxNorm: 1 Tablet(s) PO daily No Start Date Active Zytiga 500 mg tablet RxNorm: 1721147 2 Tablet(s) PO daily No Start Date Active Colace 100 mg capsule RxNorm: 8373996 1-2 Capsule(s) PO as needed constipation No Start Date Active Oriana-C ER 1,000 mg-200 mg tablet,extended release RxNorm: 181863 1 Tablet(s) PO BID No Start Date Active carvedilol 6.25 mg tablet RxNorm: 420221 1 Tablet(s) PO BID No Start Date Active Imodium A-D 2 mg tablet RxNorm: 534352 1 Tablet(s) PO as needed diarrhea No Start Date Active atorvastatin 20 mg tablet RxNorm: 092998 1 Tablet(s) PO daily No Start Date Active carvedilol 6.25 mg tablet RxNorm: 683609 1 Tablet(s) PO BID No Start Date Active Lupron Depot intramuscular RxNorm: 949223 intramuscular No Start Date Active Lovenox 40 mg/0.4 mL subcutaneous syringe RxNorm: 805074 1 Milliliter(s) SQ BID No Start Date 10/13/2017 Inactive Holding coumadin x 5 days. Start the day after stopping coumadin for procedure. Hold the day of surgery. The day after surgery resume BID x 4 days. warfarin 5 mg tablet RxNorm: 374724 1 Tablet(s) PO every other day No Start Date 10/13/2016 Inactive warfarin 7.5 mg tablet RxNorm: 834220 1 Tablet(s) PO every other day No Start Date 07/15/2016 Inactive lisinopril 20 mg tablet RxNorm: 065751 1 Tablet(s) PO daily No Start Date 12/28/2016 Inactive clopidogrel 75 mg tablet RxNorm: 131030 1 Tablet(s) PO daily No Start Date 03/10/2016 Inactive Medication Administered Medication Codes Instructions Start Date Status Kenalog 40 mg/mL suspension for injection RxNorm: 1096627 Milliliter 06/16/2018 No longer Active Kenalog 40 mg/mL suspension for injection RxNorm: 1524405 Milliliter 04/23/2018 No longer Active Immunizations Vaccine Codes Date Status Influenza CVX: 141 01/04/2018 completed Influenza CVX: 141 01/03/2016 completed Assessments Condition Codes Effective Dates Acute laryngopharyngitis ICD-10: J06.0 ICD-9: 465.0 06/16/2018 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 ICD-10: Z79.01 ICD-9: [...] Code Item Item Code Result Date Pt Krm8795 PT 19.1 seconds 06/29/2018 Pt Ewn0888 INR 1.7 06/29/2018 Pt Vix5460 Low Intensity - 1.5-2.0 06/29/2018 Pt Kfm2275 Mod intensity - 2.0-3.0 06/29/2018 Pt Unp4076 Hi intensity - 3.0-4.0 06/29/2018 Pt Xon9501 PT 17.3 seconds 06/16/2018 Pt Uji1727 INR 1.5 06/16/2018 Pt Rdy8274 Low Intensity - 1.5-2.0 06/16/2018 Pt Qxp5731 Mod intensity - 2.0-3.0 06/16/2018 Pt Uwu7684 Hi intensity - 3.0-4.0 06/16/2018 C A/B FLU 3339194 Influenza A Scr Negative 06/16/2018 C A/B FLU 2320435 Influenza B Scr Negative 06/16/2018 C A/B FLU 0196571 Influenza Intrp B AG: PRID:PT:NOSE:NOM:IF See Footnote 06/16/2018 Pt Zdf6909 PT 14.3 seconds 06/11/2018 Pt Ejs1860 INR 1.1 06/11/2018 Pt Tdu6066 Low Intensity - 1.5-2.0 06/11/2018 Pt Kce7001 Mod intensity - 2.0-3.0 06/11/2018 Pt Sky5786 Hi intensity - 3.0-4.0 06/11/2018 Pt Apd5044 PT 25.1 seconds 05/06/2018 Pt Avb1045 INR 2.3 05/06/2018 Pt Tgr3868 Low Intensity - 1.5-2.0 05/06/2018 Pt Sfz0871 Mod intensity - 2.0-3.0 05/06/2018 Pt Cry9518 Hi intensity - 3.0-4.0 05/06/2018 Pt Isb7903 PT 28.0 seconds 04/12/2018 Pt Ebz1207 INR 2.7 04/12/2018 Pt Ifm3235 Low Intensity - 1.5-2.0 04/12/2018 Pt Kzf1527 Mod intensity - 2.0-3.0 04/12/2018 Pt Isq2132 Hi intensity - 3.0-4.0 04/12/2018 Pt Zne0771 PT 24.4 seconds 03/03/2018 Pt Tpi7048 INR 2.2 03/03/2018 Pt Vyx3014 Low Intensity - 1.5-2.0 03/03/2018 Pt Paq0522 Mod intensity - 2.0-3.0 03/03/2018 Pt Doh8657 Hi intensity - 3.0-4.0 03/03/2018 Pt Lvu6396 PT 28.9 seconds 02/15/2018 Pt Jzc3151 INR 2.8 02/15/2018 Pt Jcv3010 Low Intensity - 1.5-2.0 02/15/2018 Pt Wvz9952 Mod intensity - 2.0-3.0 02/15/2018 Pt Nsy9343 Hi intensity - 3.0-4.0 02/15/2018 Pt Qmd8543 PT 27.2 seconds 02/02/2018 Pt Cyw5611 INR 2.6 02/02/2018 Pt Jdg0672 Low Intensity - 1.5-2.0 02/02/2018 Pt Csl8254 Mod intensity - 2.0-3.0 02/02/2018 Pt Wzv8670 Hi intensity - 3.0-4.0 02/02/2018 Pt Uba9595 PT 18.2 seconds 01/28/2018 Pt Fem3897 INR 1.6 01/28/2018 Pt Nau1618 Low Intensity - 1.5-2.0 01/28/2018 Pt Zeu5773 Mod intensity - 2.0-3.0 01/28/2018 Pt Ofq3797 Hi intensity - 3.0-4.0 01/28/2018 Pt Rvg0199 PT 19.8 seconds 01/22/2018 Pt Fnp5639 INR 1.7 01/22/2018 Pt Pji9045 Low Intensity - 1.5-2.0 01/22/2018 Pt Rfo5252 Mod intensity - 2.0-3.0 01/22/2018 Pt Qjn8695 Hi intensity - 3.0-4.0 01/22/2018 Pt Qgm5432 PT 38.3 seconds 01/15/2018 Pt Yrs0546 INR 3.8 01/15/2018 Pt Riy1736 Low Intensity - 1.5-2.0 01/15/2018 Pt Nmg7974 Mod intensity - 2.0-3.0 01/15/2018 Pt Fje6812 Hi intensity - 3.0-4.0 01/15/2018 Pt Poo6370 PT 27.1 seconds 01/05/2018 Pt Ijx3323 INR 2.5 01/05/2018 Pt Tcv1293 Low Intensity - 1.5-2.0 01/05/2018 Pt Buj5285 Mod intensity - 2.0-3.0 01/05/2018 Pt Eoe9942 Hi intensity - 3.0-4.0 01/05/2018 Pt Cfy6371 PT 27.2 seconds 12/25/2017 Pt Pha0285 INR 2.5 12/25/2017 Pt Lwi0904 Low Intensity - 1.5-2.0 12/25/2017 Pt Ypu5933 Mod intensity - 2.0-3.0 12/25/2017 Pt Oyn6027 Hi intensity - 3.0-4.0 12/25/2017 Pt Niq7440 PT 22.2 seconds 12/09/2017 Pt Eds9949 INR 2.0 12/09/2017 Pt Bck0971 Low Intensity - 1.5-2.0 12/09/2017 Pt Plx3481 Mod intensity - 2.0-3.0 12/09/2017 Pt Ffi4344 Hi intensity - 3.0-4.0 12/09/2017 Pt Zwa2214 PT 20.5 seconds 11/27/2017 Pt Iyp4878 INR 1.8 11/27/2017 Pt Isv1190 Low Intensity - 1.5-2.0 11/27/2017 Pt Ois4224 Mod intensity - 2.0-3.0 11/27/2017 Pt Jsn3065 Hi intensity - 3.0-4.0 11/27/2017 Pt Ety7236 PT 16.8 seconds 11/23/2017 Pt Ali9123 INR 1.4 11/23/2017 Pt Sjg1782 Low Intensity - 1.5-2.0 11/23/2017 Pt Oxn2815 Mod intensity - 2.0-3.0 11/23/2017 Pt Ijc0172 Hi intensity - 3.0-4.0 11/23/2017 Pt Oeu8166 PT 13.4 seconds 11/20/2017 Pt Bsr2159 INR 1.1 11/20/2017 Pt Lju2229 Low Intensity - 1.5-2.0 11/20/2017 Pt Xtt2157 Mod intensity - 2.0-3.0 11/20/2017 Pt Hkx4348 Hi intensity - 3.0-4.0 11/20/2017 Pt Itr1993 PT 29.3 seconds 09/22/2017 Pt Ggr0838 INR 2.7 09/22/2017 Pt Uff5050 Low Intensity - 1.5-2.0 09/22/2017 Pt Cpi9333 Mod intensity - 2.0-3.0 09/22/2017 Pt Jec6576 Hi intensity - 3.0-4.0 09/22/2017 Pt Jfu1888 PT 24.6 seconds 08/27/2017 Pt Kqz0820 INR 2.2 08/27/2017 Pt Pio2872 Low Intensity - 1.5-2.0 08/27/2017 Pt Uuh5476 Mod intensity - 2.0-3.0 08/27/2017 Pt Bnz0108 Hi intensity - 3.0-4.0 08/27/2017 Pt Ehc9895 PT 24.9 seconds 08/03/2017 Pt Hlf3828 INR 2.3 08/03/2017 Pt Yxp7543 Low Intensity - 1.5-2.0 08/03/2017 Pt Tmt9524 Mod intensity - 2.0-3.0 08/03/2017 Pt Xyn2637 Hi intensity - 3.0-4.0 08/03/2017 Pt Cwi1042 PT 24.4 seconds 06/17/2017 Pt Dnt6549 INR 2.2 06/17/2017 Pt Esz3493 Low Intensity - 1.5-2.0 06/17/2017 Pt Eug3780 Mod intensity - 2.0-3.0 06/17/2017 Pt Kqv5659 Hi intensity - 3.0-4.0 06/17/2017 Pt Pfv3434 PT 26.8 seconds 06/01/2017 Pt Phg8046 INR 2.5 06/01/2017 Pt Qct8805 Low Intensity - 1.5-2.0 06/01/2017 Pt Jib3482 Mod intensity - 2.0-3.0 06/01/2017 Pt Jla2807 Hi intensity - 3.0-4.0 06/01/2017 Pt Gpv0610 PT 18.8 seconds 05/18/2017 Pt Ewm6808 INR 1.6 05/18/2017 Pt Tpr0808 Low Intensity - 1.5-2.0 05/18/2017 Pt Egh3832 Mod intensity - 2.0-3.0 05/18/2017 Pt Axg4431 Hi intensity - 3.0-4.0 05/18/2017 Pt Igp6758 PT 18.6 seconds 04/27/2017 Pt Vvh1931 INR 1.6 04/27/2017 Pt Xls9064 Low Intensity - 1.5-2.0 04/27/2017 Pt Aiu3578 Mod intensity - 2.0-3.0 04/27/2017 Pt Zrq5011 Hi intensity - 3.0-4.0 04/27/2017 Pt Ibu2012 PT 26.1 seconds 04/13/2017 Pt Gog1297 INR 2.4 04/13/2017 Pt Flh5000 Low Intensity - 1.5-2.0 04/13/2017 Pt Mrj5209 Mod intensity - 2.0-3.0 04/13/2017 Pt Xha3845 Hi intensity - 3.0-4.0 04/13/2017 Comp Metabolic Hkj611 NA 140 mEq/L 03/17/2017 Comp Metabolic Tud487 K 4.4 mEq/L 03/17/2017 Comp Metabolic Dbo403 CL 104 mEq/L 03/17/2017 Comp Metabolic Lkj391 CO2 30.0 mEq/L 03/17/2017 Comp Metabolic Owz015 ANION GAP 10 03/17/2017 Comp Metabolic Fuu391 GLUCOSE 122 mg/dL 03/17/2017 Comp Metabolic Awj878 Creat 0.9 mg/dL 03/17/2017 Comp Metabolic Baq147 eGFR 82 ml/min/1.73m2 03/17/2017 Comp Metabolic Ekn429 BUN 22 mg/dL 03/17/2017 Comp Metabolic Eif764 B/C Ratio 23.7 Ratio 03/17/2017 Comp Metabolic Pjc569 CALCIUM 10.3 mg/dL 03/17/2017 Comp Metabolic Vjz565 ALK PHOS 62 U/L 03/17/2017 Comp Metabolic Imj141 AST(SGOT) 19 U/L 03/17/2017 Comp Metabolic Uff912 ALT(SGPT) 21 U/L 03/17/2017 Comp Metabolic Zmi453 BILI T 0.5 mg/dL 03/17/2017 Comp Metabolic Exk777 ALBUMIN 4.1 g/dL 03/17/2017 Comp Metabolic Xxv271 TPRO 6.9 g/dL 03/17/2017 Comp Metabolic Iad985 GLOB 2.8 g/dL 03/17/2017 Comp Metabolic Mex865 A/G Ratio 1.5 Ratio 03/17/2017 Comp Metabolic Ycm161 Osmo 284 mOsmo 03/17/2017 Lipid Ord30 CHOL [...] Ord30 C/HDL 2.1 Ratio 03/17/2017 Comp Metabolic Nvl108 NA 140 mEq/L 03/17/2017 Comp Metabolic Jfg927 K 4.4 mEq/L 03/17/2017 Comp Metabolic Lxx032 CL 104 mEq/L 03/17/2017 Comp Metabolic Gzp383 CO2 30.0 mEq/L 03/17/2017 Comp Metabolic Jkn693 ANION GAP 10 03/17/2017 Comp Metabolic Pos432 GLUCOSE 122 mg/dL 03/17/2017 Comp Metabolic Vyh116 Creat 0.9 mg/dL 03/17/2017 Comp Metabolic Fmy746 eGFR 82 ml/min/1.73m2 03/17/2017 Comp Metabolic Evk896 BUN 22 mg/dL 03/17/2017 Comp Metabolic Goh378 B/C Ratio 23.7 Ratio 03/17/2017 Comp Metabolic Liz290 CALCIUM 10.3 mg/dL 03/17/2017 Comp Metabolic Tji320 ALK PHOS 62 U/L 03/17/2017 Comp Metabolic Rev541 AST(SGOT) 19 U/L 03/17/2017 Comp Metabolic Fta143 ALT(SGPT) 21 U/L 03/17/2017 Comp Metabolic Mcc412 BILI T 0.5 mg/dL 03/17/2017 Comp Metabolic Uub824 ALBUMIN 4.1 g/dL 03/17/2017 Comp Metabolic Qjk123 TPRO 6.9 g/dL 03/17/2017 Comp Metabolic Nha588 GLOB 2.8 g/dL 03/17/2017 Comp Metabolic Zps357 A/G Ratio 1.5 Ratio 03/17/2017 Comp Metabolic Hlr016 Osmo 284 mOsmo 03/17/2017 Pt Uaa0900 PT 23.7 seconds 03/12/2017 Pt Eff4500 INR 2.1 03/12/2017 Pt Bjc4862 Low Intensity - 1.5-2.0 03/12/2017 Pt Bom4403 Mod intensity - 2.0-3.0 03/12/2017 Pt Xvh8780 Hi intensity - 3.0-4.0 03/12/2017 Pt Rsp5666 PT 21.3 seconds 02/10/2017 Pt Rfr8535 INR 1.9 02/10/2017 Pt Ovn1330 Low Intensity - 1.5-2.0 02/10/2017 Pt Oai3865 Mod intensity - 2.0-3.0 02/10/2017 Pt Dnw3875 Hi intensity - 3.0-4.0 02/10/2017 Pt Ccn8936 PT 21.4 seconds 01/27/2017 Pt Niv8622 INR 1.9 01/27/2017 Pt Dcs4725 Low Intensity - 1.5-2.0 01/27/2017 Pt Gcw3641 Mod intensity - 2.0-3.0 01/27/2017 Pt Lxk8244 Hi intensity - 3.0-4.0 01/27/2017 Pt Vuj2862 PT 22.0 seconds 01/19/2017 Pt Jko1260 INR 1.9 01/19/2017 Pt Hku9285 Low Intensity - 1.5-2.0 01/19/2017 Pt Gou7395 Mod intensity - 2.0-3.0 01/19/2017 Pt Aeh1239 Hi intensity - 3.0-4.0 01/19/2017 Pt Oiw6017 PT 28.3 seconds 01/05/2017 Pt Dic3352 INR 2.6 01/05/2017 Pt Nln0441 Low Intensity - 1.5-2.0 01/05/2017 Pt Hqb7033 Mod intensity - 2.0-3.0 01/05/2017 Pt Jzr9974 Hi intensity - 3.0-4.0 01/05/2017 Pt Wkz1676 PT 29.1 seconds 12/15/2016 Pt Vyp9713 INR 2.7 12/15/2016 Pt Lpx4236 Low Intensity - 1.5-2.0 12/15/2016 Pt Xbg9551 Mod intensity - 2.0-3.0 12/15/2016 Pt Ywr5382 Hi intensity - 3.0-4.0 12/15/2016 Urine Culture Ucult Preliminary NO Growth Day 1 11/10/2016 Urine Culture Ucult Complete NO Growth Day 2 11/10/2016 Pt Jtm7615 PT 23.7 seconds 11/07/2016 Pt Mzu2863 INR 2.1 11/07/2016 Pt Tqu0348 Low Intensity - 1.5-2.0 11/07/2016 Pt Yuh3895 Mod intensity - 2.0-3.0 11/07/2016 Pt Bro2514 Hi intensity - 3.0-4.0 11/07/2016 Pt Esp7798 PT 27.1 seconds 10/13/2016 Pt Fef6964 INR 2.7 10/13/2016 Pt Ojn4209 Low Intensity - 1.5-2.0 10/13/2016 Pt Ojb0668 Mod intensity - 2.0-3.0 10/13/2016 Pt Lic6046 Hi intensity - 3.0-4.0 10/13/2016 Pt Jgi3800 PT 26.3 seconds 09/23/2016 Pt Eko2262 INR 2.6 09/23/2016 Pt Gad9212 Low Intensity - 1.5-2.0 09/23/2016 Pt Zvm9191 Mod intensity - 2.0-3.0 09/23/2016 Pt Lls9683 Hi intensity - 3.0-4.0 09/23/2016 Pt Tkj6957 PT 20.4 seconds 09/09/2016 Pt Ehr4427 INR 1.8 09/09/2016 Pt Xvy4332 Low Intensity - 1.5-2.0 09/09/2016 Pt Sbo1467 Mod intensity - 2.0-3.0 09/09/2016 Pt Cnc9740 Hi intensity - 3.0-4.0 09/09/2016 Pt Uqt5929 PT 24.1 seconds 08/26/2016 Pt Jtt6181 INR 2.3 08/26/2016 Pt Pdr6251 Low Intensity - 1.5-2.0 08/26/2016 Pt Drx5680 Mod intensity - 2.0-3.0 08/26/2016 Pt Pop3892 Hi intensity - 3.0-4.0 08/26/2016 Pt Nnu8924 PT 26.1 seconds 08/12/2016 Pt Kvk3243 INR 2.6 08/12/2016 Pt Xnd8236 Low Intensity - 1.5-2.0 08/12/2016 Pt Yoe8235 Mod intensity - 2.0-3.0 08/12/2016 Pt Pgb2770 Hi intensity - 3.0-4.0 08/12/2016 Pt Hmv0447 PT 23.5 seconds 07/15/2016 Pt Ffo9872 INR 2.2 07/15/2016 Pt Lup0782 Low Intensity - 1.5-2.0 07/15/2016 Pt Nhg1703 Mod intensity - 2.0-3.0 07/15/2016 Pt Pqx5958 Hi intensity - 3.0-4.0 07/15/2016 Urine Culture Ucult Preliminary NO Growth Day 1 07/10/2016 Urine Culture Ucult Complete NO Growth Day 2 07/10/2016 Pt Fvz1141 PT 27.9 seconds 06/30/2016 Pt Neg1416 INR 2.8 06/30/2016 Pt Iiv1212 Low Intensity - 1.5-2.0 06/30/2016 Pt Czy2566 Mod intensity - 2.0-3.0 06/30/2016 Pt Ckz9033 Hi intensity - 3.0-4.0 06/30/2016 Pt Pfe6766 PT 23.7 seconds 06/12/2016 Pt Ayr1468 INR 2.3 06/12/2016 Pt Wny2704 Low Intensity - 1.5-2.0 06/12/2016 Pt Qhj9356 Mod intensity - 2.0-3.0 06/12/2016 Pt Qaf3746 Hi intensity - 3.0-4.0 06/12/2016 Pt Qmx5813 PT 36.5 seconds 06/06/2016 Pt Scj0391 INR 4.0 06/06/2016 Pt Vee4109 Low Intensity - 1.5-2.0 06/06/2016 Pt Ips0080 Mod intensity - 2.0-3.0 06/06/2016 Pt Zrn5513 Hi intensity - 3.0-4.0 06/06/2016 Tibc Ord40 Iron 76 ug/dl 05/05/2016 Tibc Ord40 UIBC 210 ug/dL 05/05/2016 Tibc Ord40 TIBC 286 ug/dL 05/05/2016 Tibc Ord40 Fe-%Sat 26.6 % 05/05/2016 Pt Wby9840 PT 29.0 seconds 05/05/2016 Pt Yqa3260 INR 2.9 05/05/2016 Pt Dhe5122 Low Intensity - 1.5-2.0 05/05/2016 Pt Uxt2743 Mod intensity - 2.0-3.0 05/05/2016 Pt Oyp1743 Hi intensity - 3.0-4.0 05/05/2016 Ferritin Ord22 FERRITIN 32.7 ng/mL 05/05/2016 Pt Chr0436 PT 31.1 seconds 04/08/2016 Pt Den1260 INR 3.2 04/08/2016 Pt Ebv3676 Low Intensity - 1.5-2.0 04/08/2016 Pt Sbf6934 Mod intensity - 2.0-3.0 04/08/2016 Pt Dox2293 Hi intensity - 3.0-4.0 04/08/2016 Cbc With [...] 32.4 pg 03/24/2016 Cbc With Differential Ord2 Louisa% 11.3 % 03/24/2016 Cbc With Differential Ord2 [...] 2.29 K/ul 03/24/2016 Cbc With Differential Ord2 Louisa ABS# 0.8 K/ul 03/24/2016 Cbc With Differential Ord2 Eos ABS# 0.5 K/ul 03/24/2016 Cbc With Differential Ord2 Baso ABS# 0.0 K/ul 03/24/2016 Pt Mvd1714 PT 17.3 seconds 03/24/2016 Pt Vqh7238 INR 1.5 03/24/2016 Pt Hfj5743 Low Intensity - 1.5-2.0 03/24/2016 Pt Fiw9881 Mod intensity - 2.0-3.0 03/24/2016 Pt Jsv8826 Hi intensity - 3.0-4.0 03/24/2016 Pt Acu2177 PT 17.8 seconds 03/12/2016 Pt Gri9791 INR 1.5 03/12/2016 Pt Mij9041 Low Intensity - 1.5-2.0 03/12/2016 Pt Nyd2187 Mod intensity - 2.0-3.0 03/12/2016 Pt Jsu9903 Hi intensity - 3.0-4.0 03/12/2016 Urine Culture Ucult Preliminary NO Growth Day 1 02/29/2016 Urine Culture Ucult Complete NO Growth Day 2 02/29/2016 Lipid Ord30 CHOL 129 mg/dL 02/21/2016 Lipid Ord30 HDL 59.0 mg/dl 02/21/2016 Lipid Ord30 TRIG 90 mg/dL 02/21/2016 Lipid Ord30 LDL 52 mg/dL 02/21/2016 Lipid Ord30 C/HDL 2.2 Ratio 02/21/2016 Comp Metabolic Fta342 NA 136 mEq/L 02/21/2016 Comp Metabolic Utg131 K 4.4 mEq/L 02/21/2016 Comp Metabolic Bxf265 CL 102 mEq/L 02/21/2016 Comp Metabolic Ehy679 CO2 29.0 mEq/L 02/21/2016 Comp Metabolic Xrh785 ANION GAP 9 02/21/2016 Comp Metabolic Flk690 GLUCOSE 118 mg/dL 02/21/2016 Comp Metabolic Sxs732 Creat 1.0 mg/dL 02/21/2016 Comp Metabolic Hwl582 eGFR 72 ml/min/1.73m2 02/21/2016 Comp Metabolic Xsu117 BUN 23 mg/dL 02/21/2016 Comp Metabolic Nzh500 B/C Ratio 22.1 Ratio 02/21/2016 Comp Metabolic Suj066 CALCIUM 9.9 mg/dL 02/21/2016 Comp Metabolic Uhb595 ALK PHOS 57 U/L 02/21/2016 Comp Metabolic Hyd186 AST(SGOT) 17 U/L 02/21/2016 Comp Metabolic Vfm365 ALT(SGPT) 19 U/L 02/21/2016 Comp Metabolic Nqu794 BILI T 0.6 mg/dL 02/21/2016 Comp Metabolic Cwu282 ALBUMIN 3.9 g/dL 02/21/2016 Comp Metabolic Exl284 TPRO 6.9 g/dL 02/21/2016 Comp Metabolic Mzt915 GLOB 3.0 g/dL 02/21/2016 Comp Metabolic Scy775 A/G Ratio 1.3 Ratio 02/21/2016 Comp Metabolic Suu376 Osmo 277 mOsmo 02/21/2016 Pt Bif8860 PT 19.8 seconds 02/21/2016 Pt Iuw1764 INR 1.8 02/21/2016 Pt Wbf7495 Low Intensity - 1.5-2.0 02/21/2016 Pt Bna2119 Mod intensity - 2.0-3.0 02/21/2016 Pt Nes1031 Hi intensity - 3.0-4.0 02/21/2016 Pt Plc3084 PT 24.1 seconds 01/15/2016 Pt Fiw9548 INR 2.3 01/15/2016 Pt Zba8956 Low Intensity - 1.5-2.0 01/15/2016 Pt Arw4922 Mod intensity - 2.0-3.0 01/15/2016 Pt Uhv3507 Hi intensity - 3.0-4.0 01/15/2016 Pt Kbx2564 PT 26.5 seconds 01/03/2016 Pt Knf6195 INR 2.6 01/03/2016 Pt Ixg3440 Low Intensity - 1.5-2.0 01/03/2016 Pt Fhw4053 Mod intensity - 2.0-3.0 01/03/2016 Pt Lhi5009 Hi intensity - 3.0-4.0 01/03/2016 Pt Fwh5802 PT 15.3 seconds 11/30/2015 Pt Onk5836 INR 1.3 11/30/2015 Pt Ycl0533 Low Intensity - 1.5-2.0 11/30/2015 Pt Ybw9343 Mod intensity - 2.0-3.0 11/30/2015 Pt Bvl9491 Hi intensity - 3.0-4.0 11/30/2015 Review of [...] impaction 04/23/2018 None Full Exam - General 1995 Ears/Nose/Throat lips/teeth/gingiva Overall: benign lips 04/23/2018 None [...] Procedure Codes Date THER/PROPH/DIAG INJ SC/IM CPT-4: 67843 06/16/2018 TRIAMCINOLONE ACET INJ NOS CPT-4: J3301 06/16/2018 TRIAMCINOLONE ACET INJ NOS CPT-4: J3301 04/23/2018 ADMIN INFLUENZA VIRUS VAC CPT-4: G0008 01/04/2018 FLU VACC PRSV FREE INC ANTIG Formatting Model/CDA Sections, Assigned to/Arabella Carballo CPT-4: [id number] 01/04/2018 URINALYSIS NONAUTO W/O SCOPE CPT-4: 43568 11/07/2016 URINALYSIS NONAUTO W/O SCOPE CPT-4: 79301 02/26/2016 ADMIN INFLUENZA VIRUS VAC CPT-4: G0008 01/03/2016 FLU VACC 4 ARIANNA 3 YRS PLUS IM SNOMED CT: [id number] CPT-4: 03510 01/03/2016 Vital Signs Date Vital 06/16/2018 Blood Pressure 1: 130/78 Code : 8480-6 Heart Rate 1: 85 bpm Height: 5'4" SpO2: 97% Temperature: 37.1 (C) / 98.8 (F) Weight: 04/23/2018 Blood Pressure 1: 118/64 Code : 8480-6 BMI: 35.0 Code : 76595-5 Heart Rate 1 : 88 bpm Height: 5'4" SpO2: 96% Temperature: 36.3 (C) / 97.4 (F) Weight: 204 lbs 04/12/2018 Blood Pressure 1: 144/76 Code : 8480-6 BMI: 35.0 Code : 40049-2 Heart Rate 1 : 75 bpm Height: 5'4" SpO2: 98% Weight: 204 lbs 03/08/2018 Blood Pressure 1: 124/70 Code : 8480-6 Heart Rate 1: 84 bpm Height: 5'4" SpO2: 92% Weight: 03/02/2018 Blood Pressure 1: 138/76 Code : 8480-6 Heart Rate 1: 87 bpm Height: 5'4" SpO2: 98% Weight: 02/26/2018 Blood Pressure 1: 148/68 Code : 8480-6 BMI: 35.0 Code : 17906-6 Heart Rate 1 : 80 bpm Height: 5'4" SpO2: 97% Weight: 204 lbs 01/28/2018 Blood Pressure 1: 150/60 Code : 8480-6 Heart Rate 1: 91 bpm SpO2: 92% 12/29/2017 Blood Pressure 1: 144/62 Code : 8480-6 BMI: 34.7 Code : 39969-1 Heart Rate 1 : 73 bpm Height: 5'4" SpO2: 97% Weight: 202 lbs 09/29/2017 Blood Pressure 1: 132/80 Code : 8480-6 Heart Rate 1: 76 bpm SpO2: 97% Weight: 204 lbs 08/11/2017 Blood Pressure 1: 132/66 Code : 8480-6 BMI: 35.0 Code : 12390-2 Heart Rate 1 : 81 bpm Height: 5'4" SpO2: 96% Weight: 204 lbs 03/16/2017 Blood Pressure 1: 132/70 Code : 8480-6 BMI: 34.5 Code : 43949-6 Heart Rate 1 : 78 bpm Height: 5'4" SpO2: 98% Weight: 201 lbs 12/15/2016 Blood Pressure 1: 140/80 Code : 8480-6 BMI: 34.2 Code : 78645-6 Heart Rate 1 : 69 bpm Height: 5'4" SpO2: 98% Weight: 199 lbs 11/07/2016 Blood Pressure 1: 158/82 Code : 8480-6 BMI: 34.7 Code : 50127-5 Heart Rate 1 : 76 bpm Height: 5'4" SpO2: 98% Weight: 202 lbs 10/14/2016 Blood Pressure 1: 140/80 Code : 8480-6 BMI: 34.0 Code : 12429-3 Heart Rate 1 : 79 bpm Height: 5'4" SpO2: 96% Weight: 198 lbs 09/10/2016 Blood Pressure 1: 158/80 Code : 8480-6 BMI: 34.3 Code : 87729-3 Heart Rate 1 : 75 bpm Height: 5'4" SpO2: 98% Weight: 200 lbs 07/08/2016 Blood Pressure 1: 160/74 Code : 8480-6 BMI: 35.2 Code : 85214-4 Heart Rate 1 : 94 bpm Height: 5'4" SpO2: 97% Weight: 205 lbs 06/16/2016 Blood Pressure 1: 138/76 Code : 8480-6 BMI: 35.0 Code : 66197-4 Heart Rate 1 : 68 bpm Height: 5'4" SpO2: 98% Weight: 204 lbs 01/31/2016 Blood Pressure 1: 136/64 Code : 8480-6 BMI: 33.6 Code : 50669-1 Heart Rate 1 : 92 bpm Height: 5'4" SpO2: 98% Weight: 196 lbs 01/03/2016 Blood Pressure 1: 142/68 Code : 8480-6 BMI: 33.8 Code : 95655-3 Heart Rate 1 : 80 bpm Height: 5'4" SpO2: 97% Weight: 197 lbs 11/30/2015 Blood Pressure 1: 158/80 Code : 8480-6 Heart Rate 1: 83 bpm SpO2: 98% 11/21/2015 Blood Pressure 1: 172/80 Code : 8480-6 BMI: 32.8 Code : 86965-2 Heart Rate 1 : 87 bpm Height: [...] J06.0] Diagnosis: Other allergic rhinitis[ICD10: J30.89] 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 PATIENT, LEVEL III Diagnosis: Cough[ICD10: R05] Diagnosis: Acute upper respiratory infection, unspecified[ICD10: J06.9] Kelli Gallardo MD, [facility] CPT-4: 75776 04/23/2018 ([id number]) 59575 EST. 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 PATIENT, LEVEL II Diagnosis: Cellulitis of right lower limb[ICD10: L03.115] [facility] CPT-4: 13310 03/08/2018 ([id number]) Miscellaneous no charge Diagnosis: Cellulitis of right lower limb[ICD10: L03.115] [facility] CPT-4: 34578 03/02/2018 ([id number]) 36011 EST. PATIENT, LEVEL III Diagnosis: Cellulitis of right lower limb[ICD10: L03.115] Kelli Gallardo MD, [facility] CPT-4: 56846 02/26/2018 93143 EST. PATIENT, LEVEL III Diagnosis: Cellulitis of left lower limb[ICD10: L03.116] Octavia Gallardo MD [facility] CPT-4: 08324 01/28/2018 ([id number]) 57409 EST. 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 PATIENT, LEVEL IV Diagnosis: Essential (primary) hypertension[ICD10: I10] Diagnosis: Urge incontinence[ICD10: N39.41] Pamela Gallardo MD [facility] CPT-4: 27639 09/29/2017 ([id number]) 99208 EST. PATIENT, LEVEL IV Diagnosis: Essential (primary) hypertension[ICD10: I10] Diagnosis: Mixed hyperlipidemia[ICD10: E78.2] Diagnosis: group home (current) use of anticoagulants[ICD10: Z79.01] Pamela Gallardo MD [facility] CPT-4: 11049 08/11/2017 ([id number]) 46572 EST. 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 PATIENT, LEVEL IV Diagnosis: Essential (primary) hypertension[ICD10: I10] Diagnosis: Mixed hyperlipidemia[ICD10: E78.2] Diagnosis: Gross hematuria[ICD10: R31.0] Pamela Gallardo MD, [facility] CPT- 4: 80978 10/14/2016 ([id number]) 66084 EST. PATIENT, LEVEL IV Diagnosis: Essential (primary) hypertension[ICD10: I10] Diagnosis: group home (current) use of anticoagulants[ICD10: Z79.01] Diagnosis: Mixed hyperlipidemia[ICD10: E78.2] Pamela Gallardo MD, [facility] CPT-4: 83747 09/10/2016 41213 EST. PATIENT, LEVEL III Diagnosis: Gross hematuria[ICD10: R31.0] Octavia Gallardo MD, [facility] CPT-4 : 40046 07/08/2016 ([id number]) 68670 EST. 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 PATIENT, LEVEL IV Diagnosis: Essential (primary) hypertension[ICD10: I10] Diagnosis: Mixed hyperlipidemia[ICD10: E78.2] Pamela Gallardo MD, [facility] CPT-4: 77766 01/31/2016 ([id number]) 71219 EST. PATIENT, LEVEL IV Diagnosis: Essential (primary) hypertension[ICD10: I10] Diagnosis: Mixed hyperlipidemia[ICD10: E78.2] Diagnosis: Encounter for immunization[ICD10: Z23] Pamela Gallardo MD, [facility] CPT-4: 22379 01/03/2016 ([id number]) Miscellaneous no charge Diagnosis: Essential (primary) hypertension[ICD10: I10] [facility] CPT-4: 88280 11/30/2015 ([id number]) OFFICE VISIT, NEW - LEVEL 4 Diagnosis: Essential (primary) hypertension[ICD10: I10] Diagnosis: Mixed hyperlipidemia[ICD10: E78.2] Diagnosis: Impacted cerumen, bilateral[ICD10: H61.23] [facility] CPT-4: 71456 11/21/2015 Plan of Care Planned Activity Notes [...] allergy spray. 06/16/2018 Appointment: [facility] ([facility] min) Complex 06/16/2018 Patient Education: Patient Medication Summary Completed 06/16/2018 Visit Plan: URI - Pt advised to increase fluids, vitamin C. Discussed natural and expected course of this diagnosis and need to alert me if symptoms do not follow expected course, or if any worse. RX sent to patient' s pharmacy. 04/23/2018 Appointment: Kelli Mccullough [phone] [place] (15 min) Moderate 04/23/2018 Patient Education: Patient [...] and 3.5. 04/12/2018 Appointment: Pamela Gallardo WPtel: [phone] [facility] (15 min) Moderate 04/12/2018 Patient Education: Patient Medication Summary Completed 04/12/2018 Visit Plan: Ulcer of right leg -healed-no further treatment indicated 03/08/2018 Appointment: Kelli Mccullough WPtel: [phone] [phone] [place] (15 min) Moderate 03/08/2018 Patient Education: Patient Medication Summary Completed 03/08/2018 Visit Plan: Ulcer of leg -improved-continue wound care as directed-follow up in 1 week, sooner if needed 03/02/2018 Appointment: Kelli Mccullough WPtel: [phone] [phone] [place] (15 min) Moderate 03/02/2018 Patient Education: Patient Medication Summary Completed 03/02/2018 Visit Plan: Cellulitis - continue with oral antibiotics as previously directed, return to clinic as previously directed, call for acute change in symptoms, worsening redness, warmth, discharge. 02/26/2018 Appointment: Kelli Mccullough WPtel: [phone] [phone] [place] (15 min) Moderate 02/26/2018 Patient Education: Patient Medication Summary Completed 02/26/2018 Visit Plan: Cellulitis - pt is to follow up with his surgeon - continue with oral antibiotics as previously directed, return to clinic as previously directed, call for acute change in symptoms, worsening redness, warmth, discharge. 01/28/2018 Appointment: Octavia Zarate WPtel: [phone] [facility] [place] (15 min) Moderate 01/28/2018 Patient Education: [...] supportive care. 12/29/2017 Appointment: Pamela Gallardo WPtel: [phone] [facility] (15 min) Moderate 12/29/2017 Patient Education: Patient Medication Summary Completed 12/29/2017 Appointment: Pamela Gallardo WPtel: [phone] [facility] Same Day appointments 12/16/2017 Visit Plan: Hypertension [...] the pharmacy 09/29/2017 Appointment: Pamela Gallardo WPtel: [facility] (15 min) Moderate 09/29/2017 Patient Education: [...] good 08/11/2017 Appointment: Pamela Gallardo WPtel: [phone] [facility] [place] (15 min) Moderate 08/11/2017 Patient Education: Patient Medication Summary Completed 08/11/2017 Appointment: Pamela Gallardo WPtel: [phone] [facility] [place] (15 min) Moderate 08/06/2017 Appointment: Pamela Gallardo WPtel: [phone] [facility] [place] (15 min) Moderate 08/04/2017 Visit Plan: [...] monitor symptoms. 03/16/2017 Appointment: Pamela Gallardo WPtel: [phone] [facility] [place] (15 min) Moderate 03/16/2017 Patient Education: Patient Medication Summary Completed 03/16/2017 Patient Education: Obesity Completed 03/16/2017 Appointment: Pamela Gallardo WPtel: [phone] [facility] [place] (15 min) Moderate 12/30/2016 Visit [...] today. 12/15/2016 Appointment: Pamela Gallardo WPtel: [phone] [facility] (15 min) Moderate 12/15/2016 Patient Education: Patient Medication Summary Completed 12/15/2016 Visit Plan: Iron deficiency gsqxri-yfzt-hgicrf bleeding- INR has been stable-continue multivitamin with iron daily Hematuria-3+ blood in urine-check PT/INR today-culture urine 11/07/2016 Appointment: Kelli Mccullough WPtel: [phone] [phone] [place] (15 min) Moderate 11/07/2016 Patient Education: [...] medications. 10/14/2016 Appointment: [phone] [place] ([facility] min) Moderate 10/14/2016 Patient Education: Patient Medication Summary Completed 10/14/2016 Patient Education: Obesity Completed 10/14/2016 App[facility]ment: [facility] [phone] [facility] [place] (15 min) Moderate 10/09/2016 Visit Plan: [...] concerns. 07/08/2016 Appointment: Octavia Zarate WPtel: [phone] [phone] (15 min) Moderate 07/08/2016 Patient Education: Patient [...] coumadin. 06/16/2016 Appointment: Pamela Gallardo WPtel: [phone] [facility] (15 min) Moderate 06/16/2016 Patient Education: Patient Medication Summary Completed 06/16/2016 Patient Education: Obesity Completed 06/16/2016 Appointment: Pamela Gallardo WPtel: [phone] [facility] (15 min) Moderate 05/22/2016 Patient Education: [...] medications. 01/31/2016 Appointment: Pamela Gallardo WPtel: [phone] [facility] (15 min) Moderate 01/31/2016 Patient [...] medications. 01/03/2016 Appointment: Pamela Gallardo WPtel: [phone] [facility] (15 min) Moderate 01/03/2016 Patient Education: Patient [...] to medications. 11/21/2015 Appointment: Pam[facility] Gallardo [facility] [facility] 11/21/2015 Patient Education: Patient [...] - chronic but stable, monitor symptoms. . Hypertension - well controlled - continue [...] it to the pharmacy . Iron deficiency izvfdj-gkhb-dzvhel bleeding-INR has been stable-continue multivitamin with iron [...]
--- OUTSIDE RECORDS SUMMARY | 2018-07-09 11:21 | XMS REPORT | CCD ---
Author Author [facility]ela [facility]ardo Organization [facility] Address [address] [place] [address] Phone Care Team Providers Care Director Corporate Communications Name Role Phone PP Unavailable CCM Unavailable Summary Purpose Interface Exchange Insurance Providers Payer name Policy type / Coverage type Covered republican ID Effective Begin Date Effective End Date WPS Medicare Part B Medicare Part B [id number] Unknown [facility] Medicare Part B [id number] Unknown Family history Father Diagnosis Age At [...] Unknown Retired 11/21/[address]: 3645256 Former smoker Quit September 2014 11/21/[address]: 225894 Currently drinks alcohol 11/21/2015 Has the patient ever used illegal drugs? 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 ICD-9: V58.61 ICD-10: [...] Instructions mupirocin 2 % topical ointment RxNorm: 372255 1 Application TOP BID 06/17/2018 No Stop Date Active amoxicillin 500 mg capsule RxNorm: 634732 1 Capsule(s) PO TID 06/17/2018 06/26/2018 Active amoxicillin 500 mg capsule RxNorm: 515863 1 Capsule(s) PO TID 06/17/2018 06/16/2018 Inactive Kenalog 40 mg/mL suspension for injection RxNorm: 0171635 Milliliter(s) Inj 06/16/2018 06/16/2018 Inactive Kenalog 40 mg/mL suspension for injection RxNorm: 5609944 Milliliter(s) Inj 04/23/2018 04/23/2018 Inactive Keflex 500 mg capsule RxNorm: 584623 1 Capsule(s) PO TID 201804/29/2018 Inactive Keflex 500 mg capsule RxNorm: 886165 1 Capsule(s) PO TID 201703/04/2018 Inactive Bactrim DS 800 mg-160 mg tablet RxNorm: 053079 1 Tablet(s) PO BID 01/28/2018 02/06/2018 Inactive warfarin 5 mg tablet RxNorm: 306080 1 Tablet(s) PO UD on Thursday - goal for INR is 2.3 12/25/2017 08/21/2018 Active warfarin 7.5 mg tablet RxNorm: 432913 1 Tablet(s) PO daily except Sat take 5mg 12/25/2017 12/19/2018 Active Lovenox 40 mg/0.4 mL subcutaneous syringe RxNorm: 910023 1 Milliliter(s) SQ BID 10/14/2017 No Stop Date Active Holding coumadin x 5 days. Start the day after stopping coumadin for procedure. Hold the day of surgery. The day after surgery resume BID x 4 days. Vesicare 10 mg tablet RxNorm: 250131 1 Tablet(s) PO QPM 2017 No Stop Date Active lisinopril 20 mg tablet RxNorm: 255414 TAKE ONE TABLET BY MOUTH ONCE DAILY 06/23/2017 No Stop Date Active warfarin 5 mg tablet RxNorm: 543356 1 Tablet(s) PO UD on Thursday and - goal for INR is 2.3 02/11/2017 10/08/2017 Inactive lisinopril 20 mg tablet RxNorm: 977432 1 Tablet(s) PO daily 06/22/2017 Inactive warfarin 7.5 mg tablet RxNorm: 383785 1 Tablet(s) PO daily except 10/14/2016 10/08/2017 Inactive warfarin 5 mg tablet RxNorm: 965878 1 Tablet(s) PO UD on Thursday and - goal for INR is 2.3 10/14/2016 02/10/2017 Inactive warfarin 5 mg tablet RxNorm: 338735 1 Tablet(s) PO UD on Thursday10/14/2016 10/13/2016 Inactive warfarin 7.5 mg tablet RxNorm: 236731 1 Tablet(s) PO daily 10/13/2016 Inactive warfarin 7.5 mg tablet RxNorm: 555188 1 Tablet(s) PO daily 03/201708/17/2016 Inactive Norvasc 5 mg tablet RxNorm: 909293 1 Tablet(s) PO QPM 201512/14/2016 Inactive iron 65 mg RxNorm: 1 PO daily No Start Date Active aspirin 81 mg chewable tablet RxNorm: 909396 1 Tablet(s) PO daily No Start Date Active amlodipine 2.5 mg tablet RxNorm: 671018 1 Tablet(s) PO daily No Start Date Active PreserVision AREDS 2 oral RxNorm: 9977135 oral No Start Date Active prednisone 5 mg tablet RxNorm: 668252 1 Tablet(s) PO BID No Start Date Active Citracal + D3 (calcium phosphate) oral RxNorm: 3383732 oral No Start Date Active Centrum Silver tablet RxNorm: 1 Tablet(s) PO daily No Start Date Active Zytiga 500 mg tablet RxNorm: 2376493 2 Tablet(s) PO daily No Start Date Active Colace 100 mg capsule RxNorm: 5308490 1-2 Capsule(s) PO as needed constipation No Start Date Active Oriana-C ER 1,000 mg-200 mg tablet,extended release RxNorm: 845596 1 Tablet(s) PO BID No Start Date Active carvedilol 6.25 mg tablet RxNorm: 600841 1 Tablet(s) PO BID No Start Date Active Imodium A-D 2 mg tablet RxNorm: 109486 1 Tablet(s) PO as needed diarrhea No Start Date Active atorvastatin 20 mg tablet RxNorm: 596475 1 Tablet(s) PO daily No Start Date Active carvedilol 6.25 mg tablet RxNorm: 572611 1 Tablet(s) PO BID No Start Date Active Lupron Depot intramuscular RxNorm: 378693 intramuscular No Start Date Active Lovenox 40 mg/0.4 mL subcutaneous syringe RxNorm: 788059 1 Milliliter(s) SQ BID No Start Date 10/13/2017 Inactive Holding coumadin x 5 days. Start the day after stopping coumadin for procedure. Hold the day of surgery. The day after surgery resume BID x 4 days. warfarin 5 mg tablet RxNorm: 944704 1 Tablet(s) PO every other day No Start Date 10/13/2016 Inactive warfarin 7.5 mg tablet RxNorm: 096246 1 Tablet(s) PO every other day No Start Date 07/15/2016 Inactive lisinopril 20 mg tablet RxNorm: 146726 1 Tablet(s) PO daily No Start Date 12/28/2016 Inactive clopidogrel 75 mg tablet RxNorm: 032047 1 Tablet(s) PO daily No Start Date 03/10/2016 Inactive Medication Administered Medication Codes Instructions Start Date Status Kenalog 40 mg/mL suspension for injection RxNorm: 5091442 Milliliter 06/16/2018 No longer Active Kenalog 40 mg/mL suspension for injection RxNorm: 1857058 Milliliter 04/23/2018 No longer Active Immunizations Vaccine Codes Date Status Influenza CVX: 141 01/04/2018 completed Influenza CVX: 141 01/03/2016 completed Assessments Condition Codes Effective Dates Acute laryngopharyngitis ICD-10: J06.0 ICD-9: 465.0 06/16/2018 [facility] (current) use of anticoagulants ICD-10: Z79.01 ICD-9: [...] Code Item Item Code Result Date Pt Iny0200 PT 17.3 seconds 06/16/2018 Pt Wkq9033 INR 1.5 06/16/2018 Pt Cqx1371 Low Intensity - 1.5-2.0 06/16/2018 Pt Ujv9272 Mod intensity - 2.0-3.0 06/16/2018 Pt Lba5281 Hi intensity - 3.0-4.0 06/16/2018 C A/B FLU 6084187 Influenza A Scr Negative 06/16/2018 C A/B FLU 5113935 Influenza B Scr Negative 06/16/2018 C A/B FLU 4263778 Influenza Intrp B AG: PRID:PT:NOSE:NOM:IF See Footnote 06/16/2018 Pt Yci2399 PT 14.3 seconds 06/11/2018 Pt Pkt2047 INR 1.1 06/11/2018 Pt Wpz2285 Low Intensity - 1.5-2.0 06/11/2018 Pt Zjn2827 Mod intensity - 2.0-3.0 06/11/2018 Pt Lem2328 Hi intensity - 3.0-4.0 06/11/2018 Pt Xni7696 PT 25.1 seconds 05/06/2018 Pt Lxl6534 INR 2.3 05/06/2018 Pt Fwr2124 Low Intensity - 1.5-2.0 05/06/2018 Pt Kze8548 Mod intensity - 2.0-3.0 05/06/2018 Pt Tvw0278 Hi intensity - 3.0-4.0 05/06/2018 Pt Hah1852 PT 28.0 seconds 04/12/2018 Pt Njz7402 INR 2.7 04/12/2018 Pt Dmp7219 Low Intensity - 1.5-2.0 04/12/2018 Pt Smf3786 Mod intensity - 2.0-3.0 04/12/2018 Pt Olm0491 Hi intensity - 3.0-4.0 04/12/2018 Pt Tfy0595 PT 24.4 seconds 03/03/2018 Pt Clo4053 INR 2.2 03/03/2018 Pt Fwo6445 Low Intensity - 1.5-2.0 03/03/2018 Pt Egy9121 Mod intensity - 2.0-3.0 03/03/2018 Pt Ecq2129 Hi intensity - 3.0-4.0 03/03/2018 Pt Bsh1726 PT 28.9 seconds 02/15/2018 Pt Lcj3240 INR 2.8 02/15/2018 Pt Irt8097 Low Intensity - 1.5-2.0 02/15/2018 Pt Yjn2201 Mod intensity - 2.0-3.0 02/15/2018 Pt Puu0947 Hi intensity - 3.0-4.0 02/15/2018 Pt Rpp8577 PT 27.2 seconds 02/02/2018 Pt Tzw6187 INR 2.6 02/02/2018 Pt Ctm8790 Low Intensity - 1.5-2.0 02/02/2018 Pt Dyp0730 Mod intensity - 2.0-3.0 02/02/2018 Pt Fcv0078 Hi intensity - 3.0-4.0 02/02/2018 Pt Bch5598 PT 18.2 seconds 01/28/2018 Pt Yxa4562 INR 1.6 01/28/2018 Pt Rex1723 Low Intensity - 1.5-2.0 01/28/2018 Pt Ohh1877 Mod intensity - 2.0-3.0 01/28/2018 Pt Uxp8405 Hi intensity - 3.0-4.0 01/28/2018 Pt Atk5004 PT 19.8 seconds 01/22/2018 Pt Sgt3949 INR 1.7 01/22/2018 Pt Orz2263 Low Intensity - 1.5-2.0 01/22/2018 Pt Fun2880 Mod intensity - 2.0-3.0 01/22/2018 Pt Ffd4700 Hi intensity - 3.0-4.0 01/22/2018 Pt Vve6815 PT 38.3 seconds 01/15/2018 Pt Pxv2093 INR 3.8 01/15/2018 Pt Cak7322 Low Intensity - 1.5-2.0 01/15/2018 Pt Agl9863 Mod intensity - 2.0-3.0 01/15/2018 Pt Gsw8005 Hi intensity - 3.0-4.0 01/15/2018 Pt Wtk8898 PT 27.1 seconds 01/05/2018 Pt Rpq8004 INR 2.5 01/05/2018 Pt Kcv3065 Low Intensity - 1.5-2.0 01/05/2018 Pt Bni9281 Mod intensity - 2.0-3.0 01/05/2018 Pt Nol1064 Hi intensity - 3.0-4.0 01/05/2018 Pt Jrh7115 PT 27.2 seconds 12/25/2017 Pt Nqz9021 INR 2.5 12/25/2017 Pt Xwx0317 Low Intensity - 1.5-2.0 12/25/2017 Pt Mvt0027 Mod intensity - 2.0-3.0 12/25/2017 Pt Jre7179 Hi intensity - 3.0-4.0 12/25/2017 Pt Irl4894 PT 22.2 seconds 12/09/2017 Pt Ycx4833 INR 2.0 12/09/2017 Pt Uvd0413 Low Intensity - 1.5-2.0 12/09/2017 Pt Yqq6719 Mod intensity - 2.0-3.0 12/09/2017 Pt Gmq2876 Hi intensity - 3.0-4.0 12/09/2017 Pt Xfp9686 PT 20.5 seconds 11/27/2017 Pt Yrp9325 INR 1.8 11/27/2017 Pt Heu7536 Low Intensity - 1.5-2.0 11/27/2017 Pt Avh3287 Mod intensity - 2.0-3.0 11/27/2017 Pt Vmf2136 Hi intensity - 3.0-4.0 11/27/2017 Pt Cxy0454 PT 16.8 seconds 11/23/2017 Pt Hbu5601 INR 1.4 11/23/2017 Pt Esn6701 Low Intensity - 1.5-2.0 11/23/2017 Pt Mzh3148 Mod intensity - 2.0-3.0 11/23/2017 Pt Gxn4974 Hi intensity - 3.0-4.0 11/23/2017 Pt Lrw4920 PT 13.4 seconds 11/20/2017 Pt Ycs3703 INR 1.1 11/20/2017 Pt Kdc0768 Low Intensity - 1.5-2.0 11/20/2017 Pt Wqy9181 Mod intensity - 2.0-3.0 11/20/2017 Pt Tcv3811 Hi intensity - 3.0-4.0 11/20/2017 Pt Axt2451 PT 29.3 seconds 09/22/2017 Pt Voe4994 INR 2.7 09/22/2017 Pt Fxb6703 Low Intensity - 1.5-2.0 09/22/2017 Pt Ppe5835 Mod intensity - 2.0-3.0 09/22/2017 Pt Zax0659 Hi intensity - 3.0-4.0 09/22/2017 Pt Vqp5364 PT 24.6 seconds 08/27/2017 Pt Vdq0273 INR 2.2 08/27/2017 Pt Ywl5856 Low Intensity - 1.5-2.0 08/27/2017 Pt Qxr3987 Mod intensity - 2.0-3.0 08/27/2017 Pt Pqf9342 Hi intensity - 3.0-4.0 08/27/2017 Pt Axe6575 PT 24.9 seconds 08/03/2017 Pt Zmg9065 INR 2.3 08/03/2017 Pt Ftr3105 Low Intensity - 1.5-2.0 08/03/2017 Pt Qqe7448 Mod intensity - 2.0-3.0 08/03/2017 Pt Nxw0301 Hi intensity - 3.0-4.0 08/03/2017 Pt Anm2430 PT 24.4 seconds 06/17/2017 Pt Ykv1200 INR 2.2 06/17/2017 Pt Gvu0993 Low Intensity - 1.5-2.0 06/17/2017 Pt Ezs1940 Mod intensity - 2.0-3.0 06/17/2017 Pt Klw6072 Hi intensity - 3.0-4.0 06/17/2017 Pt Zrn0482 PT 26.8 seconds 06/01/2017 Pt Wcv8270 INR 2.5 06/01/2017 Pt Cfb5978 Low Intensity - 1.5-2.0 06/01/2017 Pt Tbi0905 Mod intensity - 2.0-3.0 06/01/2017 Pt Bji8450 Hi intensity - 3.0-4.0 06/01/2017 Pt Ipc9642 PT 18.8 seconds 05/18/2017 Pt Tqv2226 INR 1.6 05/18/2017 Pt Dos6759 Low Intensity - 1.5-2.0 05/18/2017 Pt Ybe2339 Mod intensity - 2.0-3.0 05/18/2017 Pt Dju7849 Hi intensity - 3.0-4.0 05/18/2017 Pt Dkg6330 PT 18.6 seconds 04/27/2017 Pt Rif9978 INR 1.6 04/27/2017 Pt Eyl0607 Low Intensity - 1.5-2.0 04/27/2017 Pt Ykd3738 Mod intensity - 2.0-3.0 04/27/2017 Pt Ivz1105 Hi intensity - 3.0-4.0 04/27/2017 Pt Wvd3031 PT 26.1 seconds 04/13/2017 Pt Gag3187 INR 2.4 04/13/2017 Pt Gfs5986 Low Intensity - 1.5-2.0 04/13/2017 Pt Mnd8561 Mod intensity - 2.0-3.0 04/13/2017 Pt Bpt6881 Hi intensity - 3.0-4.0 04/13/2017 Comp Metabolic Lma828 NA 140 mEq/L 03/17/2017 Comp Metabolic Fbb004 K 4.4 mEq/L 03/17/2017 Comp Metabolic Vha078 CL 104 mEq/L 03/17/2017 Comp Metabolic Cyf376 CO2 30.0 mEq/L 03/17/2017 Comp Metabolic Cnk023 ANION GAP 10 03/17/2017 Comp Metabolic Cbu270 GLUCOSE 122 mg/dL 03/17/2017 Comp Metabolic Xkm565 Creat 0.9 mg/dL 03/17/2017 Comp Metabolic Ejc938 eGFR 82 ml/min/1.73m2 03/17/2017 Comp Metabolic Qky863 BUN 22 mg/dL 03/17/2017 Comp Metabolic Xwl894 B/C Ratio 23.7 Ratio 03/17/2017 Comp Metabolic Soe001 CALCIUM 10.3 mg/dL 03/17/2017 Comp Metabolic Trj615 ALK PHOS 62 U/L 03/17/2017 Comp Metabolic Mdc713 AST(SGOT) 19 U/L 03/17/2017 Comp Metabolic Jwr152 ALT(SGPT) 21 U/L 03/17/2017 Comp Metabolic Inb657 BILI T 0.5 mg/dL 03/17/2017 Comp Metabolic Bvd089 ALBUMIN 4.1 g/dL 03/17/2017 Comp Metabolic Bjs652 TPRO 6.9 g/dL 03/17/2017 Comp Metabolic Qgr529 GLOB 2.8 g/dL 03/17/2017 Comp Metabolic Jmu279 A/G Ratio 1.5 Ratio 03/17/2017 Comp Metabolic Rtx370 Osmo 284 mOsmo 03/17/2017 Lipid Ord30 CHOL [...] Ord30 C/HDL 2.1 Ratio 03/17/2017 Comp Metabolic Gdt965 NA 140 mEq/L 03/17/2017 Comp Metabolic Qeh707 K 4.4 mEq/L 03/17/2017 Comp Metabolic Gyu881 CL 104 mEq/L 03/17/2017 Comp Metabolic Gcz660 CO2 30.0 mEq/L 03/17/2017 Comp Metabolic Sxq097 ANION GAP 10 03/17/2017 Comp Metabolic Zsg166 GLUCOSE 122 mg/dL 03/17/2017 Comp Metabolic Ebb582 Creat 0.9 mg/dL 03/17/2017 Comp Metabolic Ixx167 eGFR 82 ml/min/1.73m2 03/17/2017 Comp Metabolic Pgs006 BUN 22 mg/dL 03/17/2017 Comp Metabolic Xwl143 B/C Ratio 23.7 Ratio 03/17/2017 Comp Metabolic Xnc793 CALCIUM 10.3 mg/dL 03/17/2017 Comp Metabolic Kic593 ALK PHOS 62 U/L 03/17/2017 Comp Metabolic Cfd689 AST(SGOT) 19 U/L 03/17/2017 Comp Metabolic Kgd630 ALT(SGPT) 21 U/L 03/17/2017 Comp Metabolic Pkl553 BILI T 0.5 mg/dL 03/17/2017 Comp Metabolic Jgl685 ALBUMIN 4.1 g/dL 03/17/2017 Comp Metabolic Erv817 TPRO 6.9 g/dL 03/17/2017 Comp Metabolic Jgn088 GLOB 2.8 g/dL 03/17/2017 Comp Metabolic Hmj308 A/G Ratio 1.5 Ratio 03/17/2017 Comp Metabolic Tdj215 Osmo 284 mOsmo 03/17/2017 Pt Gvb8530 PT 23.7 seconds 03/12/2017 Pt Rjh3303 INR 2.1 03/12/2017 Pt Vhd3391 Low Intensity - 1.5-2.0 03/12/2017 Pt Nny4294 Mod intensity - 2.0-3.0 03/12/2017 Pt Kdf5087 Hi intensity - 3.0-4.0 03/12/2017 Pt Owj7716 PT 21.3 seconds 02/10/2017 Pt Bnd6798 INR 1.9 02/10/2017 Pt Txi9649 Low Intensity - 1.5-2.0 02/10/2017 Pt Rgz1453 Mod intensity - 2.0-3.0 02/10/2017 Pt Ihl2066 Hi intensity - 3.0-4.0 02/10/2017 Pt Njm2720 PT 21.4 seconds 01/27/2017 Pt Ntd3359 INR 1.9 01/27/2017 Pt Gjt1173 Low Intensity - 1.5-2.0 01/27/2017 Pt Qel0945 Mod intensity - 2.0-3.0 01/27/2017 Pt Ryv7027 Hi intensity - 3.0-4.0 01/27/2017 Pt Rps6545 PT 22.0 seconds 01/19/2017 Pt Mum7482 INR 1.9 01/19/2017 Pt Ahw1212 Low Intensity - 1.5-2.0 01/19/2017 Pt Hbk7934 Mod intensity - 2.0-3.0 01/19/2017 Pt Hcw9405 Hi intensity - 3.0-4.0 01/19/2017 Pt Itt3079 PT 28.3 seconds 01/05/2017 Pt Jbu3791 INR 2.6 01/05/2017 Pt Xof3550 Low Intensity - 1.5-2.0 01/05/2017 Pt Mre1519 Mod intensity - 2.0-3.0 01/05/2017 Pt Ars3920 Hi intensity - 3.0-4.0 01/05/2017 Pt Dfj4184 PT 29.1 seconds 12/15/2016 Pt Awn1402 INR 2.7 12/15/2016 Pt Ghs4796 Low Intensity - 1.5-2.0 12/15/2016 Pt Buz9956 Mod intensity - 2.0-3.0 12/15/2016 Pt Syl8430 Hi intensity - 3.0-4.0 12/15/2016 Urine Culture Ucult Preliminary NO Growth Day 1 11/10/2016 Urine Culture Ucult Complete NO Growth Day 2 11/10/2016 Pt Tpe9069 PT 23.7 seconds 11/07/2016 Pt Gop7841 INR 2.1 11/07/2016 Pt Ely1666 Low Intensity - 1.5-2.0 11/07/2016 Pt Fnd1560 Mod intensity - 2.0-3.0 11/07/2016 Pt Kfo2277 Hi intensity - 3.0-4.0 11/07/2016 Pt Huw7991 PT 27.1 seconds 10/13/2016 Pt Imp7136 INR 2.7 10/13/2016 Pt Zjc6416 Low Intensity - 1.5-2.0 10/13/2016 Pt Scs0723 Mod intensity - 2.0-3.0 10/13/2016 Pt Dcm4013 Hi intensity - 3.0-4.0 10/13/2016 Pt Oap5650 PT 26.3 seconds 09/23/2016 Pt Ges1291 INR 2.6 09/23/2016 Pt Uys2288 Low Intensity - 1.5-2.0 09/23/2016 Pt Sgs2554 Mod intensity - 2.0-3.0 09/23/2016 Pt Xpo0660 Hi intensity - 3.0-4.0 09/23/2016 Pt Dfz0411 PT 20.4 seconds 09/09/2016 Pt Xwn7962 INR 1.8 09/09/2016 Pt Yac1809 Low Intensity - 1.5-2.0 09/09/2016 Pt Ger3503 Mod intensity - 2.0-3.0 09/09/2016 Pt Pgf8706 Hi intensity - 3.0-4.0 09/09/2016 Pt Fzo4817 PT 24.1 seconds 08/26/2016 Pt Dgn3846 INR 2.3 08/26/2016 Pt Jfu1497 Low Intensity - 1.5-2.0 08/26/2016 Pt Fiy1046 Mod intensity - 2.0-3.0 08/26/2016 Pt Pse5768 Hi intensity - 3.0-4.0 08/26/2016 Pt Etd2159 PT 26.1 seconds 08/12/2016 Pt Vao2352 INR 2.6 08/12/2016 Pt Fap0082 Low Intensity - 1.5-2.0 08/12/2016 Pt Tiu3531 Mod intensity - 2.0-3.0 08/12/2016 Pt Tse5217 Hi intensity - 3.0-4.0 08/12/2016 Pt Efs5940 PT 23.5 seconds 07/15/2016 Pt Utm6559 INR 2.2 07/15/2016 Pt Roo1372 Low Intensity - 1.5-2.0 07/15/2016 Pt Ytt8718 Mod intensity - 2.0-3.0 07/15/2016 Pt Wcx7214 Hi intensity - 3.0-4.0 07/15/2016 Urine Culture Ucult Preliminary NO Growth Day 1 07/10/2016 Urine Culture Ucult Complete NO Growth Day 2 07/10/2016 Pt Pdl0605 PT 27.9 seconds 06/30/2016 Pt Hpy8470 INR 2.8 06/30/2016 Pt Mgv0905 Low Intensity - 1.5-2.0 06/30/2016 Pt Iio3232 Mod intensity - 2.0-3.0 06/30/2016 Pt Qkh6646 Hi intensity - 3.0-4.0 06/30/2016 Pt Lkq7357 PT 23.7 seconds 06/12/2016 Pt Mjj0824 INR 2.3 06/12/2016 Pt Vmp8642 Low Intensity - 1.5-2.0 06/12/2016 Pt Gxx6331 Mod intensity - 2.0-3.0 06/12/2016 Pt Jfh6632 Hi intensity - 3.0-4.0 06/12/2016 Pt Awf7758 PT 36.5 seconds 06/06/2016 Pt Wza9067 INR 4.0 06/06/2016 Pt Ubv6257 Low Intensity - 1.5-2.0 06/06/2016 Pt Uup3902 Mod intensity - 2.0-3.0 06/06/2016 Pt Lzz7403 Hi intensity - 3.0-4.0 06/06/2016 Tibc Ord40 Iron 76 ug/dl 05/05/2016 Tibc Ord40 UIBC 210 ug/dL 05/05/2016 Tibc Ord40 TIBC 286 ug/dL 05/05/2016 Tibc Ord40 Fe-%Sat 26.6 % 05/05/2016 Pt Ego8350 PT 29.0 seconds 05/05/2016 Pt Aqy7155 INR 2.9 05/05/2016 Pt Ryo5305 Low Intensity - 1.5-2.0 05/05/2016 Pt Rri7675 Mod intensity - 2.0-3.0 05/05/2016 Pt Rvi2665 Hi intensity - 3.0-4.0 05/05/2016 Ferritin Ord22 FERRITIN 32.7 ng/mL 05/05/2016 Pt Tzt9361 PT 31.1 seconds 04/08/2016 Pt Avt6053 INR 3.2 04/08/2016 Pt Znk5890 Low Intensity - 1.5-2.0 04/08/2016 Pt Oez9611 Mod intensity - 2.0-3.0 04/08/2016 Pt Lsn4991 Hi intensity - 3.0-4.0 04/08/2016 Cbc With [...] 32.4 pg 03/24/2016 Cbc With Differential Ord2 [place]% 11.3 % 03/24/2016 Cbc With Differential Ord2 [...] 2.29 K/ul 03/24/2016 Cbc With Differential Ord2 [place] ABS# 0.8 K/ul 03/24/2016 Cbc With Differential Ord2 E[place] ABS# 0.5 K/ul 03/24/2016 Cbc With Differential Ord2 Baso ABS# 0.0 K/ul 03/24/2016 Pt Qld7919 PT 17.3 seconds 03/24/2016 Pt Kvf2094 INR 1.5 03/24/2016 Pt Fxe2062 Low Intensity - 1.5-2.0 03/24/2016 Pt Lhj2958 Mod intensity - 2.0-3.0 03/24/2016 Pt Sot8851 Hi intensity - 3.0-4.0 03/24/2016 Pt Zpg1098 PT 17.8 seconds 03/12/2016 Pt Ode8557 INR 1.5 03/12/2016 Pt Ucp5730 Low Intensity - 1.5-2.0 03/12/2016 Pt Pqx1933 Mod intensity - 2.0-3.0 03/12/2016 Pt Ldp0519 Hi intensity - 3.0-4.0 03/12/2016 Urine Culture Ucult Preliminary NO Growth Day 1 02/29/2016 Urine Culture Ucult Complete NO Growth Day 2 02/29/2016 Lipid Ord30 CHOL 129 mg/dL 02/21/2016 Lipid Ord30 HDL 59.0 mg/dl 02/21/2016 Lipid Ord30 TRIG 90 mg/dL 02/21/2016 Lipid Ord30 LDL 52 mg/dL 02/21/2016 Lipid Ord30 C/HDL 2.2 Ratio 02/21/2016 Comp Metabolic Acb747 NA 136 mEq/L 02/21/2016 Comp Metabolic Jcd765 K 4.4 mEq/L 02/21/2016 Comp Metabolic Tkl777 CL 102 mEq/L 02/21/2016 Comp Metabolic Pop719 CO2 29.0 mEq/L 02/21/2016 Comp Metabolic Gud185 ANION GAP 9 02/21/2016 Comp Metabolic Mho929 GLUCOSE 118 mg/dL 02/21/2016 Comp Metabolic Gzt071 Creat 1.0 mg/dL 02/21/2016 Comp Metabolic Nxc481 eGFR 72 ml/min/1.73m2 02/21/2016 Comp Metabolic Ouj014 BUN 23 mg/dL 02/21/2016 Comp Metabolic Prp675 B/C Ratio 22.1 Ratio 02/21/2016 Comp Metabolic Bwc536 CALCIUM 9.9 mg/dL 02/21/2016 Comp Metabolic Blf589 ALK PHOS 57 U/L 02/21/2016 Comp Metabolic Yec829 AST(SGOT) 17 U/L 02/21/2016 Comp Metabolic Gue420 ALT(SGPT) 19 U/L 02/21/2016 Comp Metabolic Owt134 BILI T 0.6 mg/dL 02/21/2016 Comp Metabolic Tao298 ALBUMIN 3.9 g/dL 02/21/2016 Comp Metabolic Skk169 TPRO 6.9 g/dL 02/21/2016 Comp Metabolic Ogh496 GLOB 3.0 g/dL 02/21/2016 Comp Metabolic Ggw857 A/G Ratio 1.3 Ratio 02/21/2016 Comp Metabolic Zre996 Osmo 277 mOsmo 02/21/2016 Pt Gop5661 PT 19.8 seconds 02/21/2016 Pt Scg0522 INR 1.8 02/21/2016 Pt Cwn0419 Low Intensity - 1.5-2.0 02/21/2016 Pt Crb3008 Mod intensity - 2.0-3.0 02/21/2016 Pt Jbc1699 Hi intensity - 3.0-4.0 02/21/2016 Pt Izp5757 PT 24.1 seconds 01/15/2016 Pt Hwc3554 INR 2.3 01/15/2016 Pt Hub2261 Low Intensity - 1.5-2.0 01/15/2016 Pt Wlj2343 Mod intensity - 2.0-3.0 01/15/2016 Pt Fim6683 Hi intensity - 3.0-4.0 01/15/2016 Pt Qyu3437 PT 26.5 seconds 01/03/2016 Pt Adg9769 INR 2.6 01/03/2016 Pt Jbi3553 Low Intensity - 1.5-2.0 01/03/2016 Pt Gby8234 Mod intensity - 2.0-3.0 01/03/2016 Pt Buh6477 Hi intensity - 3.0-4.0 01/03/2016 Pt Alf8981 PT 15.3 seconds 11/30/2015 Pt Zam9566 INR 1.3 11/30/2015 Pt Hlf7086 Low Intensity - 1.5-2.0 11/30/2015 Pt Oyq8967 Mod intensity - 2.0-3.0 11/30/2015 Pt Wtx6852 Hi intensity - 3.0-4.0 11/30/2015 Review of [...] benign 04/12/2018 None Full Exam - General 1995 Ears/Nose/Throat oral cavity/pharynx/larynx Overall: no masses 04/12/2018 [...] Procedure Codes Date THER/PROPH/DIAG INJ SC/IM CPT-4: 51811 06/16/2018 TRIAMCINOLONE ACET INJ NOS CPT-4: J3301 06/16/2018 TRIAMCINOLONE ACET INJ NOS CPT-4: J3301 04/23/2018 ADMIN INFLUENZA VIRUS VAC CPT-4: G0008 01/04/2018 FLU VACC PRSV FREE INC ANTIG Formatting Model/CDA Sections, Assigned to/Arabella Carballo CPT-4: 92609Iglxeyb 01/04/2018 URINALYSIS NONAUTO W/O SCOPE CPT-4: 95373 11/07/2016 URINALYSIS NONAUTO W/O SCOPE CPT-4: 26617 02/26/2016 ADMIN INFLUENZA VIRUS VAC CPT-4: G0008 01/03/2016 FLU VACC 4 ARIANNA 3 YRS PLUS IM SNOMED CT: [id number] CPT-4: 39639 01/03/2016 Vital Signs Date Vital 06/16/2018 Blood Pressure 1: 130/78 Code : 8480-6 Heart Rate 1: 85 bpm Height: 5'4" SpO2: 97% Temperature: 37.1 (C) / 98.8 (F) Weight: 04/23/2018 Blood Pressure 1: 118/64 Code : 8480-6 BMI: 35.0 Code : 92127-2 Heart Rate 1 : 88 bpm Height: 5'4" SpO2: 96% Temperature: 36.3 (C) / 97.4 (F) Weight: 204 lbs 04/12/2018 Blood Pressure 1: 144/76 Code : 8480-6 BMI: 35.0 Code : 22571-0 Heart Rate 1 : 75 bpm Height: 5'4" SpO2: 98% Weight: 204 lbs 03/08/2018 Blood Pressure 1: 124/70 Code : 8480-6 Heart Rate 1: 84 bpm Height: 5'4" SpO2: 92% Weight: 03/02/2018 Blood Pressure 1: 138/76 Code : 8480-6 Heart Rate 1: 87 bpm Height: 5'4" SpO2: 98% Weight: 02/26/2018 Blood Pressure 1: 148/68 Code : 8480-6 BMI: 35.0 Code : 53596-4 Heart Rate 1 : 80 bpm Height: 5'4" SpO2: 97% Weight: 204 lbs 01/28/2018 Blood Pressure 1: 150/60 Code : 8480-6 Heart Rate 1: 91 bpm SpO2: 92% 12/29/2017 Blood Pressure 1: 144/62 Code : 8480-6 BMI: 34.7 Code : 71026-3 Heart Rate 1 : 73 bpm Height: 5'4" SpO2: 97% Weight: 202 lbs 09/29/2017 Blood Pressure 1: 132/80 Code : 8480-6 Heart Rate 1: 76 bpm SpO2: 97% Weight: 204 lbs 08/11/2017 Blood Pressure 1: 132/66 Code : 8480-6 BMI: 35.0 Code : 46335-4 Heart Rate 1 : 81 bpm Height: 5'4" SpO2: 96% Weight: 204 lbs 03/16/2017 Blood Pressure 1: 132/70 Code : 8480-6 BMI: 34.5 Code : 03993-7 Heart Rate 1 : 78 bpm Height: 5'4" SpO2: 98% Weight: 201 lbs 12/15/2016 Blood Pressure 1: 140/80 Code : 8480-6 BMI: 34.2 Code : 74609-8 Heart Rate 1 : 69 bpm Height: 5'4" SpO2: 98% Weight: 199 lbs 11/07/2016 Blood Pressure 1: 158/82 Code : 8480-6 BMI: 34.7 Code : 67791-1 Heart Rate 1 : 76 bpm Height: 5'4" SpO2: 98% Weight: 202 lbs 10/14/2016 Blood Pressure 1: 140/80 Code : 8480-6 BMI: 34.0 Code : 61677-4 Heart Rate 1 : 79 bpm Height: 5'4" SpO2: 96% Weight: 198 lbs 09/10/2016 Blood Pressure 1: 158/80 Code : 8480-6 BMI: 34.3 Code : 10063-7 Heart Rate 1 : 75 bpm Height: 5'4" SpO2: 98% Weight: 200 lbs 07/08/2016 Blood Pressure 1: 160/74 Code : 8480-6 BMI: 35.2 Code : 43629-5 Heart Rate 1 : 94 bpm Height: 5'4" SpO2: 97% Weight: 205 lbs 06/16/2016 Blood Pressure 1: 138/76 Code : 8480-6 BMI: 35.0 Code : 06963-3 Heart Rate 1 : 68 bpm Height: 5'4" SpO2: 98% Weight: 204 lbs 01/31/2016 Blood Pressure 1: 136/64 Code : 8480-6 BMI: 33.6 Code : 30880-5 Heart Rate 1 : 92 bpm Height: 5'4" SpO2: 98% Weight: 196 lbs 01/03/2016 Blood Pressure 1: 142/68 Code : 8480-6 BMI: 33.8 Code : 61953-8 Heart Rate 1 : 80 bpm Height: 5'4" SpO2: 97% Weight: 197 lbs 11/30/2015 Blood Pressure 1: 158/80 Code : 8480-6 Heart Rate 1: 83 bpm SpO2: 98% 11/21/2015 Blood Pressure 1: 172/80 Code : 8480-6 BMI: 32.8 Code : 18563-3 Heart Rate 1 : 87 bpm Height: [...] Hospital Follow Up _ pain 09/29/2017 left [facility] Hospital Follow Up Quality acute 09/29/2017 [...] J06.0] Diagnosis: Other allergic rhinitis[ICD10: J30.89] Diagnosis: [facility] (current) use of anticoagulants[ICD10: Z79.01] Octavia Gallardo MD, [facility] CPT-4: 57747 06/16/2018 ([id number]) [id number] EST. PATIENT, LEVEL III Diagnosis: Cough[ICD10: R05] Diagnosis: Acute upper respiratory infection, unspecified[ICD10: J06.9] Kelli Gallardo MD, [facility] CPT-4: 46041 04/23/2018 ([id number]) 82779 EST. PATIENT, LEVEL IV Diagnosis: Essential (primary) hypertension[ICD10: I10] Diagnosis: Malignant neoplasm of prostate[ICD10: C61] Diagnosis: Personal history of malignant neoplasm of prostate[ICD10: Z85.46] Diagnosis: MCC (current) use of anticoagulants[ICD10: Z79.01] Pamela Gallardo MD, [facility] CPT-4: 45099 04/12/2018 ([id number]) 50036 EST. PATIENT, LEVEL II Diagnosis: Cellulitis of right lower limb[ICD10: L03.115] Kelli Gallardo MD, [facility] CPT-4: 75701 03/08/2018 ([id number]) Miscellaneous no charge Diagnosis: Cellulitis of right lower limb[ICD10: L03.115] Kelli Gallardo MD, [facility] CPT-4: 44484 03/02/2018 ([id number]) 12461 EST. PATIENT, LEVEL III Diagnosis: Cellulitis of right lower limb[ICD10: L03.115] Kelli Gallardo MD, [facility] CPT-4: 80458 02/26/2018 66089 EST. PATIENT, LEVEL III Diagnosis: Cellulitis of left lower limb[ICD10: L03.116] Octavia Gallardo MD, [facility] CPT-4: 05927 01/28/2018 ([id number]) 17638 EST. PATIENT, LEVEL III Diagnosis: Essential (primary) hypertension[ICD10: I10] Diagnosis: MCC (current) use of anticoagulants[ICD10: Z79.01] Diagnosis: Nocturia[ICD10: R35.1] Pamela Gallardo MD, [facility] CPT-4: 33768 12/29/2017 ([id number]) 57414 EST. PATIENT, LEVEL IV Diagnosis: Essential (primary) hypertension[ICD10: I10] Diagnosis: Urge incontinence[ICD10: N39.41] Pamela Gallardo MD [facility] CPT-4: 71484 09/29/2017 ([id number]) 42755 EST. PATIENT, LEVEL IV Diagnosis: Essential (primary) hypertension[ICD10: I10] Diagnosis: Mixed hyperlipidemia[ICD10: E78.2] Diagnosis: MCC (current) use of anticoagulants[ICD10: Z79.01] [facility] CPT-4: 02690 08/11/2017 ([id number]) 13222 EST. 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 PATIENT, LEVEL IV Diagnosis: Essential (primary) hypertension[ICD10: I10] Diagnosis: Mixed hyperlipidemia[ICD10: E78.2] Diagnosis: MCC (current) use of anticoagulants[ICD10: Z79.01] [facility] CPT-4: 56615 12/15/2016 ([id number]) 25843 EST. 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 PATIENT, LEVEL IV Diagnosis: Essential (primary) hypertension[ICD10: I10] Diagnosis: Mixed hyperlipidemia[ICD10: E78.2] Diagnosis: Gross hematuria[ICD10: R31.0] [facility] CPT- 4: 99888 10/14/2016 ([id number]) 46485 EST. 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 PATIENT, LEVEL III Diagnosis: Gross hematuria[ICD10: R31.0] [facility] CPT-4 : 41584 07/08/2016 ([id number]) 73273 EST. PATIENT, LEVEL IV Diagnosis: Essential (primary) hypertension[ICD10: I10] Diagnosis: Mixed hyperlipidemia[ICD10: E78.2] Diagnosis: MCC (current) use of anticoagulants[ICD10: Z79.01] Pamela Gallardo MD, [facility] CPT-4: 47182 06/16/2016 ([id number]) 98922 EST. PATIENT, LEVEL IV Diagnosis: Essential (primary) hypertension[ICD10: I10] Diagnosis: Mixed hyperlipidemia[ICD10: E78.2] [facility] CPT-4: 46599 01/31/2016 ([id number]) 20952 EST. PATIENT, LEVEL IV Diagnosis: Essential (primary) hypertension[ICD10: I10] Diagnosis: Mixed hyperlipidemia[ICD10: E78.2] Diagnosis: Encounter for immunization[ICD10: Z23] [facility] CPT-4: 31844 01/03/2016 ([id number]) Miscellaneous no charge Diagnosis: Essential (primary) hypertension[ICD10: I10] [facility] CPT-4: 79238 11/30/2015 ([id number]) OFFICE VISIT, NEW - LEVEL 4 Diagnosis: Essential (primary) hypertension[ICD10: I10] Diagnosis: Mixed hyperlipidemia[ICD10: E78.2] Diagnosis: Impacted cerumen, bilateral[ICD10: H61.23] [facility] CPT-4: 49858 11/21/2015 Plan of Care Planned Activity Notes [...] allergy spray. 06/16/2018 Appointment: Octavia Zarate WPtel: [facility] [place] [id number] (30 min) Complex 06/16/2018 Patient Education: Patient Medication Summary Completed 06/16/2018 Visit Plan: URI - Pt advised to increase fluids, vitamin C. Discussed natural and expected course of this diagnosis and need to alert me if symptoms do not follow expected course, or if any worse. RX sent to patient' s pharmacy. 04/23/2018 Appointment: Kelli Mccullough WPtel: [facility] [phone] [place] (15 min) Moderate 04/23/2018 Patient Education: [...] for patient to have chemotherapy through [facility]. Chronic Anticoagulant use - Pt has been counseled about the anticoagulant, need for serial monitoring, and need for the pt to alert the physician as to any new bruising, or acute bleeding. Therapeutic goal for INR is between 2.0 and 3.5. 04/12/2018 Appointment: Pamela Gallardo WPtel: [facility] [place] [place] (15 min) Moderate 04/12/2018 Patient Education: Patient Medication Summary Completed 04/12/2018 Visit Plan: Ulcer of right leg -healed-no further treatment indicated 03/08/2018 Appointment: Kelli Mccullough WPtel: [facility] [phone] (15 min) Moderate 03/08/2018 Patient Education: Patient Medication Summary Completed 03/08/2018 Visit Plan: Ulcer of leg -improved-continue wound care as directed-follow up in 1 week, sooner if needed 03/02/2018 Appointment: Kelli Mccullough WPtel: [facility] [phone] [place] (15 min) Moderate 03/02/2018 Patient Education: Patient Medication Summary Completed 03/02/2018 Visit Plan: Cellulitis - continue with oral antibiotics as previously directed, return to clinic as previously directed, call for acute change in symptoms, worsening redness, warmth, discharge. 02/26/2018 Appointment: Kelli Mccullough WPtel: [facility] [phone] [place] (15 min) Moderate 02/26/2018 Patient Education: Patient Medication Summary Completed 02/26/2018 Visit Plan: Cellulitis - pt is to follow up with his surgeon - continue with oral antibiotics as previously directed, return to clinic as previously directed, call for acute change in symptoms, worsening redness, warmth, discharge. 01/28/2018 Appointment: Oct[facility] Zarate [facility]Ptel[facility] [place] [place] ([facility] min) Moderate 01/28/2018 Patient Education: [...] supportive care. 12/29/2017 Appointment: Pamela Gallardo WPtel: [phone] [facility] (15 min) Moderate 12/29/2017 Patient Education: Patient Medication Summary Completed 12/29/2017 Appointment: Pamela Gallardo WPtel: [phone] [facility] Same Day appointments 12/16/2017 Visit Plan: Hypertension [...] the pharmacy 09/29/2017 Appointment: Pamela Gallardo WPtel: [facility] [place] [facility] (15 min) Moderate 09/29/2017 Patient Education: [...] INR good 08/11/2017 Appointment: Pamela Gallardo WPtel: [facility] [place] [place] (15 min) Moderate 08/11/2017 Patient Education: Patient Medication Summary Completed 08/11/2017 Appointment: Pamela Gallardo WPtel: [facility] [place] [facility] [place] (15 min) Moderate 08/06/2017 Appointment: Flora Gallardoy WPtel: [facility] [place] [place] (15 min) Moderate 08/04/2017 Visit Plan: [...] monitor symptoms. 03/16/2017 Appointment: Pamela Gallardo WPtel: [address] [place], [place] [phone] (15 min) Moderate 03/16/2017 Patient Education: Patient Medication Summary Completed 03/16/2017 Patient Education: Obesity Completed 03/16/2017 Appointment: Pamela Gallardo WPtel: [facility] [place] [place] (15 min) Moderate 12/30/2016 Visit Plan: [...] today. 12/15/2016 Appointment: Pamela Gallardo WPtel: [phone] [facility] [place] (15 min) Moderate 12/15/2016 Patient Education: Patient Medication Summary Completed 12/15/2016 Visit Plan: Iron deficiency sdrspe-vtwy-jyriyi bleeding- INR has been stable-continue multivitamin with iron daily Hematuria-3+ blood in urine-check PT/INR today-culture urine 11/07/2016 Appointment: Kelli Mccullough WPtel: [phone] [phone] [place] (15 min) Moderate 11/07/2016 Patient Education: [...] medications. 10/14/2016 [facility]ment[phone] [place] ([facility] min) Moderate 10/14/2016 Patient Education: Patient Medication Summary Completed 10/14/2016 Patient Education: Obesity Completed 10/14/2016 App[facility]ment: [phone] [facility] [place] (15 min) Moderate 10/09/2016 Visit Plan: [...] concerns. 07/08/2016 App[facility]ment[phone] [facility] [place] (15 min) Moderate 07/08/2016 Patient [...] coumadin. 06/16/2016 Appointment: Pamela Gallardo WPtel: [phone] [facility] [place] (15 min) Moderate 06/16/2016 Patient Education: Patient Medication Summary Completed 06/16/2016 Patient Education: Obesity Completed 06/16/2016 Appointment: Pamela Gallardo WPtel: [phone] [facility] [place] (15 min) Moderate 05/22/2016 Patient Education: [...] medications. 01/31/2016 Appointment: Pamela Gallardo WPtel: [phone] [facility] [place] (15 min) Moderate 01/31/2016 Patient Education: Patient [...] to medications. 01/03/2016 Appointment: Pamela Gallardo WPtel: [address] [place], [place] [id number] (15 min) Moderate 01/03/2016 Patient Education: Patient [...] medications. 11/21/2015 Appointment: [phone] [place] [facility] 11/21/2015 Patient Education: Patient Medication [...] worsen, or with any questions or concerns. steroid shot today flu swab today we [...] Chronic anticoagulation - continue with coumadin. . URI - Pt advised to increase fluids, vitamin C. Discussed natural and expected course of this diagnosis and need to alert me if symptoms do not follow expected course, or if any worse. RX sent to patient's pharmacy. increase the coumadin to 5mg on tuesdays, [...] to assure normal liver response to medications. blood pressure is uncontrolled - i recommend [...] patient to have chemotherapy through - Dr. Silveirachfield. Chronic Anticoagulant use - Pt has been counseled about the anticoagulant, need for serial monitoring, and need for the pt to alert the physician as to any new bruising, or acute bleeding. Therapeutic goal for INR is between 2.0 and 3.5. . Cellulitis - pt is to follow [...] of right leg -healed-no further treatment indicated vesicare 10mg one pill nightly - call [...] it to the pharmacy . Iron deficiency lxgtxd-vpbk-eesorp bleeding-INR has been stable-continue multivitamin with iron daily Hematuria-3+ blood in urine-check PT/INR today-culture urine
--- OUTSIDE RECORDS SUMMARY | 2018-07-09 11:24 | XMS REPORT | CCD ---
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 [employer] Name Role Phone PP Unavailable CCM Unavailable Summary Purpose Interface Exchange Insurance Providers Payer name Policy type / Coverage type Covered alliance party ID Effective Begin Date Effective End Date WPS Medicare Part B Medicare Part B [id number] Unknown [facility] Medicare Part B [id number] Unknown Family history Father Diagnosis Age At [...] Unknown Retired 11/21/[address]: 9906173 Former smoker Quit September 2014 11/21/[address]: 820332 Currently drinks alcohol 11/21/2015 Has the patient ever used illegal drugs? Unknown Has never used illegal drugs 11/21/2015 Allergies, Adverse Reactions, Alerts Substance Reaction Codes Entered Date Inactivated Date Status * NO KNOWN DRUG ALLERGIES Unknown 11/21/2015 No Inactive Date Active Past Medical History Illness Codes Condition Status Onset Date Resolved Date Acute laryngopharyngitis ICD-9: 465.0 ICD-10: J06.0 Active 06/16/2018 Unknown [facility] (current) use of anticoagulants ICD-9: V58.61 ICD-10: [...] laryngopharyngitis ICD-9: 465.0 ICD-10: J06.0 06/16/2018 Active [employer] (current) use of anticoagulants ICD-9: V58.61 ICD-10: [...] Instructions mupirocin 2 % topical ointment RxNorm: 301166 1 Application TOP BID 06/17/2018 No Stop Date Active amoxicillin 500 mg capsule RxNorm: 633458 1 Capsule(s) PO TID 06/17/2018 06/26/2018 Active amoxicillin 500 mg capsule RxNorm: 229817 1 Capsule(s) PO TID 06/17/2018 06/16/2018 Inactive Kenalog 40 mg/mL suspension for injection RxNorm: 4624618 Milliliter(s) Inj 06/16/2018 06/16/2018 Inactive Kenalog 40 mg/mL suspension for injection RxNorm: 5857901 Milliliter(s) Inj 04/23/2018 04/23/2018 Inactive Keflex 500 mg capsule RxNorm: 654081 1 Capsule(s) PO TID 201804/29/2018 Inactive Keflex 500 mg capsule RxNorm: 267833 1 Capsule(s) PO TID 201703/04/2018 Inactive Bactrim DS 800 mg-160 mg tablet RxNorm: 315995 1 Tablet(s) PO BID 01/28/2018 02/06/2018 Inactive warfarin 5 mg tablet RxNorm: 485129 1 Tablet(s) PO UD on Thursday - goal for INR is 2.3 12/25/2017 08/21/2018 Active warfarin 7.5 mg tablet RxNorm: 717141 1 Tablet(s) PO daily except Sat take 5mg 12/25/2017 12/19/2018 Active Lovenox 40 mg/0.4 mL subcutaneous syringe RxNorm: 226156 1 Milliliter(s) SQ BID 10/14/2017 No Stop Date Active Holding coumadin x 5 days. Start the day after stopping coumadin for procedure. Hold the day of surgery. The day after surgery resume BID x 4 days. Vesicare 10 mg tablet RxNorm: 038164 1 Tablet(s) PO QPM 2017 No Stop Date Active lisinopril 20 mg tablet RxNorm: 413773 TAKE ONE TABLET BY MOUTH ONCE DAILY 06/23/2017 No Stop Date Active warfarin 5 mg tablet RxNorm: 626882 1 Tablet(s) PO UD on Thursday and - goal for INR is 2.3 02/11/2017 10/08/2017 Inactive lisinopril 20 mg tablet RxNorm: 057721 1 Tablet(s) PO daily 06/22/2017 Inactive warfarin 7.5 mg tablet RxNorm: 710673 1 Tablet(s) PO daily except 10/14/2016 10/08/2017 Inactive warfarin 5 mg tablet RxNorm: 791570 1 Tablet(s) PO UD on Thursday and - goal for INR is 2.3 10/14/2016 02/10/2017 Inactive warfarin 5 mg tablet RxNorm: 121952 1 Tablet(s) PO UD on Thursday10/14/2016 10/13/2016 Inactive warfarin 7.5 mg tablet RxNorm: 209654 1 Tablet(s) PO daily 10/13/2016 Inactive warfarin 7.5 mg tablet RxNorm: 817219 1 Tablet(s) PO daily 03/201708/17/2016 Inactive Norvasc 5 mg tablet RxNorm: 271432 1 Tablet(s) PO QPM 201512/14/2016 Inactive iron 65 mg RxNorm: 1 PO daily No Start Date Active aspirin 81 mg chewable tablet RxNorm: 274795 1 Tablet(s) PO daily No Start Date Active amlodipine 2.5 mg tablet RxNorm: 084178 1 Tablet(s) PO daily No Start Date Active PreserVision AREDS 2 oral RxNorm: 5862840 oral No Start Date Active prednisone 5 mg tablet RxNorm: 495512 1 Tablet(s) PO BID No Start Date Active Citracal + D3 (calcium phosphate) oral RxNorm: 5904234 oral No Start Date Active Centrum Silver tablet RxNorm: 1 Tablet(s) PO daily No Start Date Active Zytiga 500 mg tablet RxNorm: 5868499 2 Tablet(s) PO daily No Start Date Active Colace 100 mg capsule RxNorm: 5598483 1-2 Capsule(s) PO as needed constipation No Start Date Active Oriana-C ER 1,000 mg-200 mg tablet,extended release RxNorm: 280395 1 Tablet(s) PO BID No Start Date Active carvedilol 6.25 mg tablet RxNorm: 512141 1 Tablet(s) PO BID No Start Date Active Imodium A-D 2 mg tablet RxNorm: 918664 1 Tablet(s) PO as needed diarrhea No Start Date Active atorvastatin 20 mg tablet RxNorm: 093719 1 Tablet(s) PO daily No Start Date Active carvedilol 6.25 mg tablet RxNorm: 759484 1 Tablet(s) PO BID No Start Date Active Lupron Depot intramuscular RxNorm: 148452 intramuscular No Start Date Active Lovenox 40 mg/0.4 mL subcutaneous syringe RxNorm: 764225 1 Milliliter(s) SQ BID No Start Date 10/13/2017 Inactive Holding coumadin x 5 days. Start the day after stopping coumadin for procedure. Hold the day of surgery. The day after surgery resume BID x 4 days. warfarin 5 mg tablet RxNorm: 231686 1 Tablet(s) PO every other day No Start Date 10/13/2016 Inactive warfarin 7.5 mg tablet RxNorm: 407950 1 Tablet(s) PO every other day No Start Date 07/15/2016 Inactive lisinopril 20 mg tablet RxNorm: 318474 1 Tablet(s) PO daily No Start Date 12/28/2016 Inactive clopidogrel 75 mg tablet RxNorm: 124793 1 Tablet(s) PO daily No Start Date 03/10/2016 Inactive Medication Administered Medication Codes Instructions Start Date Status Kenalog 40 mg/mL suspension for injection RxNorm: 6049787 Milliliter 06/16/2018 No longer Active Kenalog 40 mg/mL suspension for injection RxNorm: 7021574 Milliliter 04/23/2018 No longer Active Immunizations Vaccine Codes Date Status Influenza CVX: 141 01/04/2018 completed Influenza CVX: 141 01/03/2016 completed Assessments Condition Codes Effective Dates Acute laryngopharyngitis ICD-10: J06.0 ICD-9: 465.0 06/16/2018 [facility] (current) use of anticoagulants ICD-10: Z79.01 ICD-9: [...] Code Item Item Code Result Date Pt Hhw7507 PT 17.3 seconds 06/16/2018 Pt Zpb4693 INR 1.5 06/16/2018 Pt Xzi3505 Low Intensity - 1.5-2.0 06/16/2018 Pt Crb8984 Mod intensity - 2.0-3.0 06/16/2018 Pt Yrc5387 Hi intensity - 3.0-4.0 06/16/2018 C A/B FLU 0177232 Influenza A Scr Negative 06/16/2018 C A/B FLU 3859199 Influenza B Scr Negative 06/16/2018 C A/B FLU 6712674 Influenza Intrp B AG: PRID:PT:NOSE:NOM:IF See Footnote 06/16/2018 Pt Zln4676 PT 14.3 seconds 06/11/2018 Pt Buk5852 INR 1.1 06/11/2018 Pt Mzm0744 Low Intensity - 1.5-2.0 06/11/2018 Pt Mnz5699 Mod intensity - 2.0-3.0 06/11/2018 Pt Srv7489 Hi intensity - 3.0-4.0 06/11/2018 Pt Itb0914 PT 25.1 seconds 05/06/2018 Pt Vfc9849 INR 2.3 05/06/2018 Pt Sqx2380 Low Intensity - 1.5-2.0 05/06/2018 Pt Ccm8599 Mod intensity - 2.0-3.0 05/06/2018 Pt Axq4224 Hi intensity - 3.0-4.0 05/06/2018 Pt Vas4426 PT 28.0 seconds 04/12/2018 Pt Knu4157 INR 2.7 04/12/2018 Pt God0369 Low Intensity - 1.5-2.0 04/12/2018 Pt Ohm2132 Mod intensity - 2.0-3.0 04/12/2018 Pt Mwv9857 Hi intensity - 3.0-4.0 04/12/2018 Pt Ffc4932 PT 24.4 seconds 03/03/2018 Pt Csl7090 INR 2.2 03/03/2018 Pt Gbs7049 Low Intensity - 1.5-2.0 03/03/2018 Pt Kuy3164 Mod intensity - 2.0-3.0 03/03/2018 Pt Cdn5886 Hi intensity - 3.0-4.0 03/03/2018 Pt Hsg4211 PT 28.9 seconds 02/15/2018 Pt Ouq6572 INR 2.8 02/15/2018 Pt Act2459 Low Intensity - 1.5-2.0 02/15/2018 Pt Jrr6901 Mod intensity - 2.0-3.0 02/15/2018 Pt Kgm7857 Hi intensity - 3.0-4.0 02/15/2018 Pt Bfe4448 PT 27.2 seconds 02/02/2018 Pt Xde3364 INR 2.6 02/02/2018 Pt Gqq4649 Low Intensity - 1.5-2.0 02/02/2018 Pt Ach2009 Mod intensity - 2.0-3.0 02/02/2018 Pt Iuf7532 Hi intensity - 3.0-4.0 02/02/2018 Pt Lqu6870 PT 18.2 seconds 01/28/2018 Pt Mhu6429 INR 1.6 01/28/2018 Pt Bfn4227 Low Intensity - 1.5-2.0 01/28/2018 Pt Tnw4866 Mod intensity - 2.0-3.0 01/28/2018 Pt Ade1599 Hi intensity - 3.0-4.0 01/28/2018 Pt Imx6868 PT 19.8 seconds 01/22/2018 Pt Gam6491 INR 1.7 01/22/2018 Pt Vrm7384 Low Intensity - 1.5-2.0 01/22/2018 Pt Nox6619 Mod intensity - 2.0-3.0 01/22/2018 Pt Wfp3302 Hi intensity - 3.0-4.0 01/22/2018 Pt Ewb2961 PT 38.3 seconds 01/15/2018 Pt Gnd7404 INR 3.8 01/15/2018 Pt Muk5547 Low Intensity - 1.5-2.0 01/15/2018 Pt Ugc2187 Mod intensity - 2.0-3.0 01/15/2018 Pt Did6778 Hi intensity - 3.0-4.0 01/15/2018 Pt Ivl8039 PT 27.1 seconds 01/05/2018 Pt Yyr1968 INR 2.5 01/05/2018 Pt Oas3958 Low Intensity - 1.5-2.0 01/05/2018 Pt Kfx0241 Mod intensity - 2.0-3.0 01/05/2018 Pt Nxh8005 Hi intensity - 3.0-4.0 01/05/2018 Pt Whs2592 PT 27.2 seconds 12/25/2017 Pt Eqd2627 INR 2.5 12/25/2017 Pt Uxs0444 Low Intensity - 1.5-2.0 12/25/2017 Pt Qee9821 Mod intensity - 2.0-3.0 12/25/2017 Pt Rvm4752 Hi intensity - 3.0-4.0 12/25/2017 Pt Wld1199 PT 22.2 seconds 12/09/2017 Pt Ymx1368 INR 2.0 12/09/2017 Pt Yfx4613 Low Intensity - 1.5-2.0 12/09/2017 Pt Lky7235 Mod intensity - 2.0-3.0 12/09/2017 Pt Ybq5206 Hi intensity - 3.0-4.0 12/09/2017 Pt Qbp1357 PT 20.5 seconds 11/27/2017 Pt Pbl6904 INR 1.8 11/27/2017 Pt Uzv3372 Low Intensity - 1.5-2.0 11/27/2017 Pt Yhi0649 Mod intensity - 2.0-3.0 11/27/2017 Pt Mpi8393 Hi intensity - 3.0-4.0 11/27/2017 Pt Ete3446 PT 16.8 seconds 11/23/2017 Pt Sky0248 INR 1.4 11/23/2017 Pt Guv9775 Low Intensity - 1.5-2.0 11/23/2017 Pt Bed1650 Mod intensity - 2.0-3.0 11/23/2017 Pt Kqk6141 Hi intensity - 3.0-4.0 11/23/2017 Pt Wfw6900 PT 13.4 seconds 11/20/2017 Pt Vzc5499 INR 1.1 11/20/2017 Pt Goi4619 Low Intensity - 1.5-2.0 11/20/2017 Pt Osd7691 Mod intensity - 2.0-3.0 11/20/2017 Pt Xen3746 Hi intensity - 3.0-4.0 11/20/2017 Pt Qqs1679 PT 29.3 seconds 09/22/2017 Pt Hvx4610 INR 2.7 09/22/2017 Pt Xnn9655 Low Intensity - 1.5-2.0 09/22/2017 Pt Pue6091 Mod intensity - 2.0-3.0 09/22/2017 Pt Dyb1920 Hi intensity - 3.0-4.0 09/22/2017 Pt Wni8302 PT 24.6 seconds 08/27/2017 Pt Msf4123 INR 2.2 08/27/2017 Pt Kkl4397 Low Intensity - 1.5-2.0 08/27/2017 Pt Usj1900 Mod intensity - 2.0-3.0 08/27/2017 Pt Ica1575 Hi intensity - 3.0-4.0 08/27/2017 Pt Xjm5339 PT 24.9 seconds 08/03/2017 Pt Jvi0966 INR 2.3 08/03/2017 Pt Hqg2553 Low Intensity - 1.5-2.0 08/03/2017 Pt Fiy2722 Mod intensity - 2.0-3.0 08/03/2017 Pt Jfv1153 Hi intensity - 3.0-4.0 08/03/2017 Pt Zml3707 PT 24.4 seconds 06/17/2017 Pt Zbb9202 INR 2.2 06/17/2017 Pt Wlt0468 Low Intensity - 1.5-2.0 06/17/2017 Pt Rxm0924 Mod intensity - 2.0-3.0 06/17/2017 Pt Vhq8516 Hi intensity - 3.0-4.0 06/17/2017 Pt Zks0574 PT 26.8 seconds 06/01/2017 Pt Bra6930 INR 2.5 06/01/2017 Pt Nwf6533 Low Intensity - 1.5-2.0 06/01/2017 Pt Hee0637 Mod intensity - 2.0-3.0 06/01/2017 Pt Fxd9558 Hi intensity - 3.0-4.0 06/01/2017 Pt Rep1007 PT 18.8 seconds 05/18/2017 Pt Vjm9921 INR 1.6 05/18/2017 Pt Tpe1872 Low Intensity - 1.5-2.0 05/18/2017 Pt Wts5339 Mod intensity - 2.0-3.0 05/18/2017 Pt Xwo4573 Hi intensity - 3.0-4.0 05/18/2017 Pt Qqe9599 PT 18.6 seconds 04/27/2017 Pt Tyi7370 INR 1.6 04/27/2017 Pt Fhm0350 Low Intensity - 1.5-2.0 04/27/2017 Pt Rwk4291 Mod intensity - 2.0-3.0 04/27/2017 Pt Xnx6406 Hi intensity - 3.0-4.0 04/27/2017 Pt Qjn6280 PT 26.1 seconds 04/13/2017 Pt Ngy8464 INR 2.4 04/13/2017 Pt Qeh7223 Low Intensity - 1.5-2.0 04/13/2017 Pt Uoj1606 Mod intensity - 2.0-3.0 04/13/2017 Pt Oqi7872 Hi intensity - 3.0-4.0 04/13/2017 Comp Metabolic Iqs817 NA 140 mEq/L 03/17/2017 Comp Metabolic Ugw353 K 4.4 mEq/L 03/17/2017 Comp Metabolic Sor414 CL 104 mEq/L 03/17/2017 Comp Metabolic Mou749 CO2 30.0 mEq/L 03/17/2017 Comp Metabolic Syf852 ANION GAP 10 03/17/2017 Comp Metabolic Jzg100 GLUCOSE 122 mg/dL 03/17/2017 Comp Metabolic Gwl622 Creat 0.9 mg/dL 03/17/2017 Comp Metabolic Zem355 eGFR 82 ml/min/1.73m2 03/17/2017 Comp Metabolic Xex105 BUN 22 mg/dL 03/17/2017 Comp Metabolic Bdj732 B/C Ratio 23.7 Ratio 03/17/2017 Comp Metabolic Yet983 CALCIUM 10.3 mg/dL 03/17/2017 Comp Metabolic Adw249 ALK PHOS 62 U/L 03/17/2017 Comp Metabolic Acq813 AST(SGOT) 19 U/L 03/17/2017 Comp Metabolic Ueo375 ALT(SGPT) 21 U/L 03/17/2017 Comp Metabolic Ory617 BILI T 0.5 mg/dL 03/17/2017 Comp Metabolic Fcn147 ALBUMIN 4.1 g/dL 03/17/2017 Comp Metabolic Rhk389 TPRO 6.9 g/dL 03/17/2017 Comp Metabolic Kqh648 GLOB 2.8 g/dL 03/17/2017 Comp Metabolic Rvi890 A/G Ratio 1.5 Ratio 03/17/2017 Comp Metabolic Qni506 Osmo 284 mOsmo 03/17/2017 Lipid Ord30 CHOL [...] Ord30 C/HDL 2.1 Ratio 03/17/2017 Comp Metabolic Zmf440 NA 140 mEq/L 03/17/2017 Comp Metabolic Tgr463 K 4.4 mEq/L 03/17/2017 Comp Metabolic Vjy872 CL 104 mEq/L 03/17/2017 Comp Metabolic Fno328 CO2 30.0 mEq/L 03/17/2017 Comp Metabolic Bej454 ANION GAP 10 03/17/2017 Comp Metabolic Mnt139 GLUCOSE 122 mg/dL 03/17/2017 Comp Metabolic Gus047 Creat 0.9 mg/dL 03/17/2017 Comp Metabolic Dqh138 eGFR 82 ml/min/1.73m2 03/17/2017 Comp Metabolic Cfj890 BUN 22 mg/dL 03/17/2017 Comp Metabolic Mac296 B/C Ratio 23.7 Ratio 03/17/2017 Comp Metabolic Lum044 CALCIUM 10.3 mg/dL 03/17/2017 Comp Metabolic Enj832 ALK PHOS 62 U/L 03/17/2017 Comp Metabolic Yku714 AST(SGOT) 19 U/L 03/17/2017 Comp Metabolic Obk494 ALT(SGPT) 21 U/L 03/17/2017 Comp Metabolic Ehy598 BILI T 0.5 mg/dL 03/17/2017 Comp Metabolic Jna632 ALBUMIN 4.1 g/dL 03/17/2017 Comp Metabolic Eoe138 TPRO 6.9 g/dL 03/17/2017 Comp Metabolic Ivx683 GLOB 2.8 g/dL 03/17/2017 Comp Metabolic Qdb206 A/G Ratio 1.5 Ratio 03/17/2017 Comp Metabolic Ebu930 Osmo 284 mOsmo 03/17/2017 Pt Auk5547 PT 23.7 seconds 03/12/2017 Pt Cvq8810 INR 2.1 03/12/2017 Pt Bdw8010 Low Intensity - 1.5-2.0 03/12/2017 Pt Mfj3521 Mod intensity - 2.0-3.0 03/12/2017 Pt Fqa4352 Hi intensity - 3.0-4.0 03/12/2017 Pt Zix8020 PT 21.3 seconds 02/10/2017 Pt Vmb2630 INR 1.9 02/10/2017 Pt Ivw1605 Low Intensity - 1.5-2.0 02/10/2017 Pt Vmp5594 Mod intensity - 2.0-3.0 02/10/2017 Pt Cjf4909 Hi intensity - 3.0-4.0 02/10/2017 Pt Tvu1976 PT 21.4 seconds 01/27/2017 Pt Tjw4432 INR 1.9 01/27/2017 Pt Pax4725 Low Intensity - 1.5-2.0 01/27/2017 Pt Nyy8252 Mod intensity - 2.0-3.0 01/27/2017 Pt Ryb3985 Hi intensity - 3.0-4.0 01/27/2017 Pt Fnd2576 PT 22.0 seconds 01/19/2017 Pt Qgs1360 INR 1.9 01/19/2017 Pt Thg2702 Low Intensity - 1.5-2.0 01/19/2017 Pt Ixf4575 Mod intensity - 2.0-3.0 01/19/2017 Pt Uxp9184 Hi intensity - 3.0-4.0 01/19/2017 Pt Njd2890 PT 28.3 seconds 01/05/2017 Pt Czd3367 INR 2.6 01/05/2017 Pt Bne2567 Low Intensity - 1.5-2.0 01/05/2017 Pt Djj6078 Mod intensity - 2.0-3.0 01/05/2017 Pt Lqx4751 Hi intensity - 3.0-4.0 01/05/2017 Pt Ljn5278 PT 29.1 seconds 12/15/2016 Pt Wna4607 INR 2.7 12/15/2016 Pt Trr9004 Low Intensity - 1.5-2.0 12/15/2016 Pt Oci2816 Mod intensity - 2.0-3.0 12/15/2016 Pt Ztf8465 Hi intensity - 3.0-4.0 12/15/2016 Urine Culture Ucult Preliminary NO Growth Day 1 11/10/2016 Urine Culture Ucult Complete NO Growth Day 2 11/10/2016 Pt Xzt8732 PT 23.7 seconds 11/07/2016 Pt Wic4548 INR 2.1 11/07/2016 Pt Mhf1229 Low Intensity - 1.5-2.0 11/07/2016 Pt Xzq9778 Mod intensity - 2.0-3.0 11/07/2016 Pt Qkx6700 Hi intensity - 3.0-4.0 11/07/2016 Pt Fiu3543 PT 27.1 seconds 10/13/2016 Pt Wsx4914 INR 2.7 10/13/2016 Pt Tgy2887 Low Intensity - 1.5-2.0 10/13/2016 Pt Vme0828 Mod intensity - 2.0-3.0 10/13/2016 Pt Gkh2505 Hi intensity - 3.0-4.0 10/13/2016 Pt Sxj4544 PT 26.3 seconds 09/23/2016 Pt Jsp3303 INR 2.6 09/23/2016 Pt Zfl8107 Low Intensity - 1.5-2.0 09/23/2016 Pt Trx2366 Mod intensity - 2.0-3.0 09/23/2016 Pt Hyg3889 Hi intensity - 3.0-4.0 09/23/2016 Pt Oka9586 PT 20.4 seconds 09/09/2016 Pt Bxh7052 INR 1.8 09/09/2016 Pt Zcu3555 Low Intensity - 1.5-2.0 09/09/2016 Pt Khq9149 Mod intensity - 2.0-3.0 09/09/2016 Pt Zqp5425 Hi intensity - 3.0-4.0 09/09/2016 Pt Qtt2612 PT 24.1 seconds 08/26/2016 Pt Hhn7874 INR 2.3 08/26/2016 Pt Ous7544 Low Intensity - 1.5-2.0 08/26/2016 Pt Ahd1812 Mod intensity - 2.0-3.0 08/26/2016 Pt Wao5191 Hi intensity - 3.0-4.0 08/26/2016 Pt Zph2731 PT 26.1 seconds 08/12/2016 Pt Hjt7343 INR 2.6 08/12/2016 Pt Sxd7017 Low Intensity - 1.5-2.0 08/12/2016 Pt Ice6190 Mod intensity - 2.0-3.0 08/12/2016 Pt Cnw7955 Hi intensity - 3.0-4.0 08/12/2016 Pt Sfm8767 PT 23.5 seconds 07/15/2016 Pt Tjp0801 INR 2.2 07/15/2016 Pt Xsm1114 Low Intensity - 1.5-2.0 07/15/2016 Pt Bdf5090 Mod intensity - 2.0-3.0 07/15/2016 Pt Eno8055 Hi intensity - 3.0-4.0 07/15/2016 Urine Culture Ucult Preliminary NO Growth Day 1 07/10/2016 Urine Culture Ucult Complete NO Growth Day 2 07/10/2016 Pt Fef1838 PT 27.9 seconds 06/30/2016 Pt Vml1214 INR 2.8 06/30/2016 Pt Bcs1891 Low Intensity - 1.5-2.0 06/30/2016 Pt Byu2431 Mod intensity - 2.0-3.0 06/30/2016 Pt Qxe3668 Hi intensity - 3.0-4.0 06/30/2016 Pt Ssi3259 PT 23.7 seconds 06/12/2016 Pt Yeg0134 INR 2.3 06/12/2016 Pt Pvg2649 Low Intensity - 1.5-2.0 06/12/2016 Pt Vjk9622 Mod intensity - 2.0-3.0 06/12/2016 Pt Xhh3186 Hi intensity - 3.0-4.0 06/12/2016 Pt Dgg7877 PT 36.5 seconds 06/06/2016 Pt Gzh5990 INR 4.0 06/06/2016 Pt Luz0324 Low Intensity - 1.5-2.0 06/06/2016 Pt Alh6035 Mod intensity - 2.0-3.0 06/06/2016 Pt Oog1136 Hi intensity - 3.0-4.0 06/06/2016 Tibc Ord40 Iron 76 ug/dl 05/05/2016 Tibc Ord40 UIBC 210 ug/dL 05/05/2016 Tibc Ord40 TIBC 286 ug/dL 05/05/2016 Tibc Ord40 Fe-%Sat 26.6 % 05/05/2016 Pt Thq4402 PT 29.0 seconds 05/05/2016 Pt Ldc8409 INR 2.9 05/05/2016 Pt Brm8774 Low Intensity - 1.5-2.0 05/05/2016 Pt Uyb1563 Mod intensity - 2.0-3.0 05/05/2016 Pt Haa1291 Hi intensity - 3.0-4.0 05/05/2016 Ferritin Ord22 FERRITIN 32.7 ng/mL 05/05/2016 Pt Wdx3951 PT 31.1 seconds 04/08/2016 Pt Rtk0074 INR 3.2 04/08/2016 Pt Oko9684 Low Intensity - 1.5-2.0 04/08/2016 Pt Nrq6074 Mod intensity - 2.0-3.0 04/08/2016 Pt Nsf2137 Hi intensity - 3.0-4.0 04/08/2016 Cbc With [...] 32.4 pg 03/24/2016 Cbc With Differential Ord2 Davison% 11.3 % 03/24/2016 Cbc With Differential Ord2 [...] 2.29 K/ul 03/24/2016 Cbc With Differential Ord2 Davison ABS# 0.8 K/ul 03/24/2016 Cbc With Differential Ord2 Eos ABS# 0.5 K/ul 03/24/2016 Cbc With Differential Ord2 Baso ABS# 0.0 K/ul 03/24/2016 Pt Mom4952 PT 17.3 seconds 03/24/2016 Pt Kyn8200 INR 1.5 03/24/2016 Pt Rhj6066 Low Intensity - 1.5-2.0 03/24/2016 Pt Qiw5529 Mod intensity - 2.0-3.0 03/24/2016 Pt Cyp7335 Hi intensity - 3.0-4.0 03/24/2016 Pt Jfy1520 PT 17.8 seconds 03/12/2016 Pt Aht9909 INR 1.5 03/12/2016 Pt Nph5293 Low Intensity - 1.5-2.0 03/12/2016 Pt Sbz1113 Mod intensity - 2.0-3.0 03/12/2016 Pt Kub4959 Hi intensity - 3.0-4.0 03/12/2016 Urine Culture Ucult Preliminary NO Growth Day 1 02/29/2016 Urine Culture Ucult Complete NO Growth Day 2 02/29/2016 Lipid Ord30 CHOL 129 mg/dL 02/21/2016 Lipid Ord30 HDL 59.0 mg/dl 02/21/2016 Lipid Ord30 TRIG 90 mg/dL 02/21/2016 Lipid Ord30 LDL 52 mg/dL 02/21/2016 Lipid Ord30 C/HDL 2.2 Ratio 02/21/2016 Comp Metabolic Cbe536 NA 136 mEq/L 02/21/2016 Comp Metabolic Rul839 K 4.4 mEq/L 02/21/2016 Comp Metabolic Cur283 CL 102 mEq/L 02/21/2016 Comp Metabolic Hza220 CO2 29.0 mEq/L 02/21/2016 Comp Metabolic Znp674 ANION GAP 9 02/21/2016 Comp Metabolic Bkw901 GLUCOSE 118 mg/dL 02/21/2016 Comp Metabolic Psp693 Creat 1.0 mg/dL 02/21/2016 Comp Metabolic Mca744 eGFR 72 ml/min/1.73m2 02/21/2016 Comp Metabolic Zmi591 BUN 23 mg/dL 02/21/2016 Comp Metabolic Zzc573 B/C Ratio 22.1 Ratio 02/21/2016 Comp Metabolic Tfv386 CALCIUM 9.9 mg/dL 02/21/2016 Comp Metabolic Sxn832 ALK PHOS 57 U/L 02/21/2016 Comp Metabolic Zid791 AST(SGOT) 17 U/L 02/21/2016 Comp Metabolic Pyc215 ALT(SGPT) 19 U/L 02/21/2016 Comp Metabolic Ktv195 BILI T 0.6 mg/dL 02/21/2016 Comp Metabolic Ijv248 ALBUMIN 3.9 g/dL 02/21/2016 Comp Metabolic Ewb641 TPRO 6.9 g/dL 02/21/2016 Comp Metabolic Vdr427 GLOB 3.0 g/dL 02/21/2016 Comp Metabolic Mgc589 A/G Ratio 1.3 Ratio 02/21/2016 Comp Metabolic Kic017 Osmo 277 mOsmo 02/21/2016 Pt Abo8297 PT 19.8 seconds 02/21/2016 Pt Qtz1965 INR 1.8 02/21/2016 Pt Yhw4013 Low Intensity - 1.5-2.0 02/21/2016 Pt Xcl5454 Mod intensity - 2.0-3.0 02/21/2016 Pt Flh5826 Hi intensity - 3.0-4.0 02/21/2016 Pt Fck3891 PT 24.1 seconds 01/15/2016 Pt Qmf4353 INR 2.3 01/15/2016 Pt Ldj9255 Low Intensity - 1.5-2.0 01/15/2016 Pt Fej3558 Mod intensity - 2.0-3.0 01/15/2016 Pt Tkv8817 Hi intensity - 3.0-4.0 01/15/2016 Pt Jqk9209 PT 26.5 seconds 01/03/2016 Pt Yxx3194 INR 2.6 01/03/2016 Pt Pro7533 Low Intensity - 1.5-2.0 01/03/2016 Pt Ano5457 Mod intensity - 2.0-3.0 01/03/2016 Pt Vcp3317 Hi intensity - 3.0-4.0 01/03/2016 Pt Gbr8183 PT 15.3 seconds 11/30/2015 Pt Vdj1700 INR 1.3 11/30/2015 Pt Ddk7660 Low Intensity - 1.5-2.0 11/30/2015 Pt Qef7574 Mod intensity - 2.0-3.0 11/30/2015 Pt Hrp9337 Hi intensity - 3.0-4.0 11/30/2015 Review of [...] Procedure Codes Date THER/PROPH/DIAG INJ SC/IM CPT-4: 15178 06/16/2018 TRIAMCINOLONE ACET INJ NOS CPT-4: J3301 06/16/2018 TRIAMCINOLONE ACET INJ NOS CPT-4: J3301 04/23/2018 ADMIN INFLUENZA VIRUS VAC CPT-4: G0008 01/04/2018 FLU VACC PRSV FREE INC ANTIG Formatting Model/CDA Sections, Assigned to/Arabella Carballo CPT-4: 04216Mphhemp 01/04/2018 URINALYSIS NONAUTO W/O SCOPE CPT-4: 67419 11/07/2016 URINALYSIS NONAUTO W/O SCOPE CPT-4: 76099 02/26/2016 ADMIN INFLUENZA VIRUS VAC CPT-4: G0008 01/03/2016 FLU VACC 4 ARIANNA 3 YRS PLUS IM SNOMED CT: [id number] CPT-4: 29768 01/03/2016 Vital Signs Date Vital 06/16/2018 Blood Pressure 1: 130/78 Code : 8480-6 Heart Rate 1: 85 bpm Height: 5'4" SpO2: 97% Temperature: 37.1 (C) / 98.8 (F) Weight: 04/23/2018 Blood Pressure 1: 118/64 Code : 8480-6 BMI: 35.0 Code : 72681-0 Heart Rate 1 : 88 bpm Height: 5'4" SpO2: 96% Temperature: 36.3 (C) / 97.4 (F) Weight: 204 lbs 04/12/2018 Blood Pressure 1: 144/76 Code : 8480-6 BMI: 35.0 Code : 86434-0 Heart Rate 1 : 75 bpm Height: 5'4" SpO2: 98% Weight: 204 lbs 03/08/2018 Blood Pressure 1: 124/70 Code : 8480-6 Heart Rate 1: 84 bpm Height: 5'4" SpO2: 92% Weight: 03/02/2018 Blood Pressure 1: 138/76 Code : 8480-6 Heart Rate 1: 87 bpm Height: 5'4" SpO2: 98% Weight: 02/26/2018 Blood Pressure 1: 148/68 Code : 8480-6 BMI: 35.0 Code : 79551-9 Heart Rate 1 : 80 bpm Height: 5'4" SpO2: 97% Weight: 204 lbs 01/28/2018 Blood Pressure 1: 150/60 Code : 8480-6 Heart Rate 1: 91 bpm SpO2: 92% 12/29/2017 Blood Pressure 1: 144/62 Code : 8480-6 BMI: 34.7 Code : 19992-8 Heart Rate 1 : 73 bpm Height: 5'4" SpO2: 97% Weight: 202 lbs 09/29/2017 Blood Pressure 1: 132/80 Code : 8480-6 Heart Rate 1: 76 bpm SpO2: 97% Weight: 204 lbs 08/11/2017 Blood Pressure 1: 132/66 Code : 8480-6 BMI: 35.0 Code : 71346-5 Heart Rate 1 : 81 bpm Height: 5'4" SpO2: 96% Weight: 204 lbs 03/16/2017 Blood Pressure 1: 132/70 Code : 8480-6 BMI: 34.5 Code : 63287-2 Heart Rate 1 : 78 bpm Height: 5'4" SpO2: 98% Weight: 201 lbs 12/15/2016 Blood Pressure 1: 140/80 Code : 8480-6 BMI: 34.2 Code : 11814-2 Heart Rate 1 : 69 bpm Height: 5'4" SpO2: 98% Weight: 199 lbs 11/07/2016 Blood Pressure 1: 158/82 Code : 8480-6 BMI: 34.7 Code : 77542-0 Heart Rate 1 : 76 bpm Height: 5'4" SpO2: 98% Weight: 202 lbs 10/14/2016 Blood Pressure 1: 140/80 Code : 8480-6 BMI: 34.0 Code : 48899-8 Heart Rate 1 : 79 bpm Height: 5'4" SpO2: 96% Weight: 198 lbs 09/10/2016 Blood Pressure 1: 158/80 Code : 8480-6 BMI: 34.3 Code : 69366-9 Heart Rate 1 : 75 bpm Height: 5'4" SpO2: 98% Weight: 200 lbs 07/08/2016 Blood Pressure 1: 160/74 Code : 8480-6 BMI: 35.2 Code : 11088-9 Heart Rate 1 : 94 bpm Height: 5'4" SpO2: 97% Weight: 205 lbs 06/16/2016 Blood Pressure 1: 138/76 Code : 8480-6 BMI: 35.0 Code : 39977-5 Heart Rate 1 : 68 bpm Height: 5'4" SpO2: 98% Weight: 204 lbs 01/31/2016 Blood Pressure 1: 136/64 Code : 8480-6 BMI: 33.6 Code : 85491-6 Heart Rate 1 : 92 bpm Height: 5'4" SpO2: 98% Weight: 196 lbs 01/03/2016 Blood Pressure 1: 142/68 Code : 8480-6 BMI: 33.8 Code : 10257-3 Heart Rate 1 : 80 bpm Height: 5'4" SpO2: 97% Weight: 197 lbs 11/30/2015 Blood Pressure 1: 158/80 Code : 8480-6 Heart Rate 1: 83 bpm SpO2: 98% 11/21/2015 Blood Pressure 1: 172/80 Code : 8480-6 BMI: 32.8 Code : 89913-8 Heart Rate 1 : 87 bpm Height: [...] Hospital Follow Up _ pain 09/29/2017 left [facility] Hospital Follow Up Quality acute 09/29/2017 None [...] J06.0] Diagnosis: Other allergic rhinitis[ICD10: J30.89] Diagnosis: [facility] (current) use of anticoagulants[ICD10: Z79.01] Octavia Gallardo MD, [facility] CPT-4: 25471 06/16/2018 ([id number]) [id number] EST. PATIENT, LEVEL III Diagnosis: Cough[ICD10: R05] Diagnosis: Acute upper respiratory infection, unspecified[ICD10: J06.9] Kelli Gallardo MD, [facility] CPT-4: 97266 04/23/2018 ([id number]) [id number] EST. 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 PATIENT, LEVEL II Diagnosis: Cellulitis of right lower limb[ICD10: L03.115] Kelli Gallardo MD, [facility] CPT-4: 58088 03/08/2018 ([id number]) Miscellaneous no charge Diagnosis: Cellulitis of right lower limb[ICD10: L03.115] Kelli Gallardo MD, [facility] CPT-4: 51464 03/02/2018 ([id number]) 42671 EST. PATIENT, LEVEL III Diagnosis: Cellulitis of right lower limb[ICD10: L03.115] Kelli Gallardo MD, [facility] CPT-4: 19428 02/26/2018 [id number] EST. PATIENT, LEVEL III Diagnosis: Cellulitis of left lower limb[ICD10: L03.116] Octavia Gallardo MD, [facility] CPT-4: 65574 01/28/2018 ([id number]) 54760 EST. PATIENT, LEVEL III Diagnosis: Essential (primary) hypertension[ICD10: I10] Diagnosis: [facility]CI (current) use of anticoagulants[ICD10: Z79.01] Diagnosis: Nocturia[ICD10: R35.1] Pamela Gallardo MD, [facility] CPT-4: 80182 12/29/2017 ([id number]) 65024 EST. PATIENT, LEVEL IV Diagnosis: Essential (primary) hypertension[ICD10: I10] Diagnosis: Urge incontinence[ICD10: N39.41] Pamela Gallardo MD [facility] CPT-4: 90641 09/29/2017 ([id number]) 56744 EST. PATIENT, LEVEL IV Diagnosis: Essential (primary) hypertension[ICD10: I10] Diagnosis: Mixed hyperlipidemia[ICD10: E78.2] Diagnosis: [facility]CI (current) use of anticoagulants[ICD10: Z79.01] [facility] CPT-4: 19230 08/11/2017 ([id number]) 73777 EST. 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 PATIENT, LEVEL IV Diagnosis: Essential (primary) hypertension[ICD10: I10] Diagnosis: Mixed hyperlipidemia[ICD10: E78.2] Diagnosis: [facility]CI (current) use of anticoagulants[ICD10: Z79.01] [facility] CPT-4: 94608 12/15/2016 ([id number]) 24838 EST. 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 PATIENT, LEVEL IV Diagnosis: Essential (primary) hypertension[ICD10: I10] Diagnosis: Mixed hyperlipidemia[ICD10: E78.2] Diagnosis: Gross hematuria[ICD10: R31.0] [facility] CPT- 4: 30984 10/14/2016 ([id number]) 69457 EST. 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 PATIENT, LEVEL III Diagnosis: Gross hematuria[ICD10: R31.0] [facility] CPT-4 : 33641 07/08/2016 ([id number]) 19808 EST. PATIENT, LEVEL IV Diagnosis: Essential (primary) hypertension[ICD10: I10] Diagnosis: Mixed hyperlipidemia[ICD10: E78.2] Diagnosis: [facility]CI (current) use of anticoagulants[ICD10: Z79.01] Pamela Gallardo MD, [facility] CPT-4: 16425 06/16/2016 ([id number]) 89900 EST. PATIENT, LEVEL IV Diagnosis: Essential (primary) hypertension[ICD10: I10] Diagnosis: Mixed hyperlipidemia[ICD10: E78.2] [facility] CPT-4: 06480 01/31/2016 ([id number]) 94265 EST. PATIENT, LEVEL IV Diagnosis: Essential (primary) hypertension[ICD10: I10] Diagnosis: Mixed hyperlipidemia[ICD10: E78.2] Diagnosis: Encounter for immunization[ICD10: Z23] [facility] CPT-4: 88457 01/03/2016 ([id number]) Miscellaneous no charge Diagnosis: Essential (primary) hypertension[ICD10: I10] [facility] CPT-4: 95130 11/30/2015 ([id number]) OFFICE VISIT, NEW - LEVEL 4 Diagnosis: Essential (primary) hypertension[ICD10: I10] Diagnosis: Mixed hyperlipidemia[ICD10: E78.2] Diagnosis: Impacted cerumen, bilateral[ICD10: H61.23] [facility] CPT-4: 72867 11/21/2015 Plan of Care Planned Activity Notes [...] allergy spray. 06/16/2018 Appointment: Octavia Zarate WPtel: [facility] [place] (30 min) Complex 06/16/2018 Patient Education: Patient Medication Summary Completed 06/16/2018 Visit Plan: URI - Pt advised to increase fluids, vitamin C. Discussed natural and expected course of this diagnosis and need to alert me if symptoms do not follow expected course, or if any worse. RX sent to patient' s pharmacy. 04/23/2018 Appointment: Kelli Mccullough WPtel: [facility] [phone] [place] (15 min) Moderate 04/23/2018 Patient Education: [...] and 3.5. 04/12/2018 Appointment: Pamela Gallardo WPtel: [facility] [place] [facility] [place] (15 min) Moderate 04/12/2018 Patient Education: Patient Medication Summary Completed 04/12/2018 Visit Plan: Ulcer of right leg -healed-no further treatment indicated 03/08/2018 Appointment: Kelli Mccullough WPtel: [facility] [phone] (15 min) Moderate 03/08/2018 Patient Education: Patient Medication Summary Completed 03/08/2018 Visit Plan: Ulcer of leg -improved-continue wound care as directed-follow up in 1 week, sooner if needed 03/02/2018 Appointment: Kelli Mccullough WPtel: [facility] [phone] [place] (15 min) Moderate 03/02/2018 Patient Education: Patient Medication Summary Completed 03/02/2018 Visit Plan: Cellulitis - continue with oral antibiotics as previously directed, return to clinic as previously directed, call for acute change in symptoms, worsening redness, warmth, discharge. 02/26/2018 Appointment: Kelli Mccullough WPtel: [facility] [phone] [place] (15 min) Moderate 02/26/2018 Patient Education: Patient Medication Summary Completed 02/26/2018 Visit Plan: Cellulitis - pt is to follow up with his surgeon - continue with oral antibiotics as previously directed, return to clinic as previously directed, call for acute change in symptoms, worsening redness, warmth, discharge. 01/28/2018 Appointment: Octavia Zarate WPtel: [facility] [place] [place] (15 min) Moderate 01/28/2018 Patient Education: [...] supportive care. 12/29/2017 Appointment: Pamela Gallardo WPtel: [phone] [facility] (15 min) Moderate 12/29/2017 Patient Education: Patient Medication Summary Completed 12/29/2017 Appointment: Pamela Gallardo WPtel: [phone] [facility] Same Day appointments 12/16/2017 Visit Plan: [...] the pharmacy 09/29/2017 Appointment: Pamela Gallardo WPtel: [facility] [place] (15 min) Moderate 09/29/2017 Patient Education: Patient [...] INR good 08/11/2017 Appointment: Pamela Gallardo WPtel: [facility] [place] [place] (15 min) Moderate 08/11/2017 Patient Education: Patient Medication Summary Completed 08/11/2017 Appointment: Pamela Gallardo WPtel: [facility] [place] [place] (15 min) Moderate 08/06/2017 Appointment: Flora Gallardoy WPtel: [facility] [place] [facility] [place] (15 min) Moderate 08/04/2017 Visit Plan: [...] monitor symptoms. 03/16/2017 Appointment: Pamela Gallardo WPtel: [address] [place], [place] [phone] (15 min) Moderate 03/16/2017 Patient Education: Patient Medication Summary Completed 03/16/2017 Patient Education: Obesity Completed 03/16/2017 Appointment: Pamela Gallardo WPtel: [facility] [place] [place] (15 min) Moderate 12/30/2016 Visit Plan: [...] today. 12/15/2016 Appointment: Pamela Gallardo WPtel: [phone] [facility] [place] (15 min) Moderate 12/15/2016 Patient Education: Patient Medication Summary Completed 12/15/2016 Visit Plan: Iron deficiency [id number] bleeding- INR has been stable-continue multivitamin with iron daily Hematuria-3+ blood in urine-check PT/INR today-culture urine 11/07/2016 Appointment: Kelli Mccullough WPtel: [phone] [phone] [place] (15 min) Moderate 11/07/2016 [...] medications. 10/14/2016 App[facility]ment: [phone] [place] (15 min) Moderate 10/14/2016 Patient Education: Patient Medication Summary Completed 10/14/2016 Patient Education: Obesity Completed 10/14/2016 Appointment: [facility]Ptel[phone] [facility] [place] (15 min) Moderate 10/09/2016 Visit [...] concerns. 07/08/2016 Appointment: [phone] [place] (15 min) Moderate 07/08/2016 Patient Education: [...] with coumadin. 06/16/2016 Appointment: Pamela Gallardo WPtel: [phone] [facility] [place] (15 min) Moderate 06/16/2016 Patient Education: Patient Medication Summary Completed 06/16/2016 Patient Education: Obesity Completed 06/16/2016 Appointment: Pamela Gallardo WPtel: [phone] [facility] [place] (15 min) Moderate 05/22/2016 Patient Education: [...] to medications. 01/31/2016 Appointment: Pamela Gallardo WPtel: [phone] [facility] [place] (15 min) Moderate 01/31/2016 Patient Education: [...] to medications. 01/03/2016 Appointment: Pamela Gallardo WPtel: [address] [place], [place] [phone] (15 min) Moderate 01/03/2016 Patient Education: Patient [...] medications. 11/21/2015 Appointment: [facility]Ptel[phone] [facility] Patient 11/21/2015 Patient Education: Patient Medication Summary Completed 11/21/2015 Patient Education: Obesity Completed 11/21/2015 Instructions Comment . Ulcer of right leg -healed-no further treatment indicated Dr. Lincoln always kept INR close to [...] anemia - chronic but stable, monitor symptoms. steroid shot today flu swab today we [...] Chronic anticoagulation - continue with coumadin. . Ulcer of leg -improved-continue wound care [...] assure normal liver response to medications. . Cellulitis - pt is to follow up with his surgeon - continue with oral antibiotics as previously directed, return to clinic as previously directed, call for acute change in symptoms, worsening redness, warmth, discharge. . URI - Pt advised to increase [...] plans for patient to have chemotherapy through [facility] - Dr. Amin. Chronic Anticoagulant use - Pt has been counseled about the anticoagulant, need for serial monitoring, and need for the pt to alert the physician as to any new bruising, or acute bleeding. Therapeutic goal for INR is between 2.0 and 3.5. increase the coumadin to 5mg on tuesdays, [...] week - repeat INR in two weeks. CHANGE DRESSING DAILY -CLEANSE WITH STERILE SALINE [...] liver response to medications. . Iron deficiency [id number] bleeding-INR has been stable-continue multivitamin with iron daily Hematuria-3+ blood in urine-check PT/INR today-culture urine vesicare 10mg one pill nightly - call [...] a script for it to the pharmacy blood pressure is uncontrolled - i recommend [...]
--- OUTSIDE RECORDS SUMMARY | 2018-07-09 11:27 | XMS REPORT | CCD ---
Author Author [facility] Organization [facility] Address [address] [place] [address] Phone Care Team Providers Care Dietician Name Role Phone PP Unavailable CCM Unavailable Summary Purpose Interface Exchange Insurance Providers Payer name Policy type / Coverage type Covered green party ID Effective Begin Date Effective End Date WPS Medicare Part B Medicare Part B [id number] Unknown [facility] Medicare Part B [id number] Unknown Family history Father Diagnosis Age At [...] Unknown Retired 11/21/[address]: 8214075 Former smoker Quit September 2014 11/21/[address]: 825556 Currently drinks alcohol 11/21/2015 Has the patient ever used illegal drugs? 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 ICD-10: Z79.01 06/16/2016 Active Acute upper respiratory infection, unspecified ICD-9: [...] Start Date Stop Date Status Fill Instructions amoxicillin 500 mg capsule RxNorm: 413491 1 Capsule(s) PO TID 06/17/2018 06/26/2018 Active amoxicillin 500 mg capsule RxNorm: 133091 1 Capsule(s) PO TID 06/17/2018 06/16/2018 Inactive Kenalog 40 mg/mL suspension for injection RxNorm: 3088135 Milliliter(s) Inj 06/16/2018 06/16/2018 Inactive Kenalog 40 mg/mL suspension for injection RxNorm: 5729827 Milliliter(s) Inj 04/23/2018 04/23/2018 Inactive Keflex 500 mg capsule RxNorm: 992316 1 Capsule(s) PO TID 201804/29/2018 Inactive Keflex 500 mg capsule RxNorm: 704662 1 Capsule(s) PO TID 201703/04/2018 Inactive Bactrim DS 800 mg-160 mg tablet RxNorm: 903388 1 Tablet(s) PO BID 01/28/2018 02/06/2018 Inactive warfarin 5 mg tablet RxNorm: 433267 1 Tablet(s) PO UD on Thursday - goal for INR is 2.3 12/25/2017 08/21/2018 Active warfarin 7.5 mg tablet RxNorm: 624303 1 Tablet(s) PO daily except Sat take 5mg 12/25/2017 12/19/2018 Active Lovenox 40 mg/0.4 mL subcutaneous syringe RxNorm: 334717 1 Milliliter(s) SQ BID 10/14/2017 No Stop Date Active Holding coumadin x 5 days. Start the day after stopping coumadin for procedure. Hold the day of surgery. The day after surgery resume BID x 4 days. Vesicare 10 mg tablet RxNorm: 933394 1 Tablet(s) PO QPM 2017 No Stop Date Active lisinopril 20 mg tablet RxNorm: 476718 TAKE ONE TABLET BY MOUTH ONCE DAILY 06/23/2017 No Stop Date Active warfarin 5 mg tablet RxNorm: 821457 1 Tablet(s) PO UD on Thursday and - goal for INR is 2.3 02/11/2017 10/08/2017 Inactive lisinopril 20 mg tablet RxNorm: 369489 1 Tablet(s) PO daily 06/22/2017 Inactive warfarin 7.5 mg tablet RxNorm: 999965 1 Tablet(s) PO daily except 10/14/2016 10/08/2017 Inactive warfarin 5 mg tablet RxNorm: 134301 1 Tablet(s) PO UD on Thursday and - goal for INR is 2.3 10/14/2016 02/10/2017 Inactive warfarin 5 mg tablet RxNorm: 733171 1 Tablet(s) PO UD on Thursday10/14/2016 10/13/2016 Inactive warfarin 7.5 mg tablet RxNorm: 550672 1 Tablet(s) PO daily 10/13/2016 Inactive warfarin 7.5 mg tablet RxNorm: 446507 1 Tablet(s) PO daily 03/201708/17/2016 Inactive Norvasc 5 mg tablet RxNorm: 012403 1 Tablet(s) PO QPM 201512/14/2016 Inactive iron 65 mg RxNorm: 1 PO daily No Start Date Active aspirin 81 mg chewable tablet RxNorm: 977845 1 Tablet(s) PO daily No Start Date Active amlodipine 2.5 mg tablet RxNorm: 679726 1 Tablet(s) PO daily No Start Date Active PreserVision AREDS 2 oral RxNorm: 6890743 oral No Start Date Active prednisone 5 mg tablet RxNorm: 286435 1 Tablet(s) PO BID No Start Date Active Citracal + D3 (calcium phosphate) oral RxNorm: 0570417 oral No Start Date Active Centrum Silver tablet RxNorm: 1 Tablet(s) PO daily No Start Date Active Zytiga 500 mg tablet RxNorm: 8910536 2 Tablet(s) PO daily No Start Date Active Colace 100 mg capsule RxNorm: 1830349 1-2 Capsule(s) PO as needed constipation No Start Date Active Oriana-C ER 1,000 mg-200 mg tablet,extended release RxNorm: 977308 1 Tablet(s) PO BID No Start Date Active carvedilol 6.25 mg tablet RxNorm: 085396 1 Tablet(s) PO BID No Start Date Active Imodium A-D 2 mg tablet RxNorm: 898113 1 Tablet(s) PO as needed diarrhea No Start Date Active atorvastatin 20 mg tablet RxNorm: 771501 1 Tablet(s) PO daily No Start Date Active carvedilol 6.25 mg tablet RxNorm: 061070 1 Tablet(s) PO BID No Start Date Active Lupron Depot intramuscular RxNorm: 452722 intramuscular No Start Date Active Lovenox 40 mg/0.4 mL subcutaneous syringe RxNorm: 130347 1 Milliliter(s) SQ BID No Start Date 10/13/2017 Inactive Holding coumadin x 5 days. Start the day after stopping coumadin for procedure. Hold the day of surgery. The day after surgery resume BID x 4 days. warfarin 5 mg tablet RxNorm: 739630 1 Tablet(s) PO every other day No Start Date 10/13/2016 Inactive warfarin 7.5 mg tablet RxNorm: 571349 1 Tablet(s) PO every other day No Start Date 07/15/2016 Inactive lisinopril 20 mg tablet RxNorm: 981274 1 Tablet(s) PO daily No Start Date 12/28/2016 Inactive clopidogrel 75 mg tablet RxNorm: 247071 1 Tablet(s) PO daily No Start Date 03/10/2016 Inactive Medication Administered Medication Codes Instructions Start Date Status Kenalog 40 mg/mL suspension for injection RxNorm: 0716359 Milliliter 04/23/2018 No longer Active Immunizations Vaccine Codes Date Status Influenza CVX: 141 01/04/2018 completed Influenza CVX: 141 01/03/2016 completed Assessments Condition Codes Effective Dates Cough ICD-10: R05 ICD-9: 786.2 04/23/2018 Acute upper respiratory infection, unspecified ICD-10: J06.9 ICD-9: 465.9 04/23/2018 Personal history of malignant neoplasm of prostate ICD-10: Z85.46 ICD-9: V10.46 04/12/2018 Malignant neoplasm of prostate ICD-10: C61 ICD-9: 185 04/12/2018 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 ICD-9: V58.61 04/12/2018 Essential (primary) hypertension ICD-10: I10 ICD-9: [...] For Visit Effective Dates Notes sinus congestion 04/23/2018 hypertension 04/12/2018 skin lesion 03/08/2018 skin lesion 03/02/2018 skin lesion 02/26/2018 foot pain 01/28/2018 vaccination against influenza 01/04/2018 nocturia 12/29/2017 Hospital Follow Up 09/29/2017 hypertension 08/11/2017 hypertension 03/16/2017 hypertension 12/15/2016 anemia 11/07/2016 hypertension 10/14/2016 hypertension 09/10/2016 hematuria 07/08/2016 hypertension 06/16/2016 hypertension 01/31/2016 hypertension 01/03/2016 hypertension 11/21/2015 Results Observation Observation Code Item Item Code Result Date Pt Lgu9039 PT 14.3 seconds 06/11/2018 Pt Lct5203 INR 1.1 06/11/2018 Pt Mzw4977 Low Intensity - 1.5-2.0 06/11/2018 Pt Jkw9641 Mod intensity - 2.0-3.0 06/11/2018 Pt Owj3264 Hi intensity - 3.0-4.0 06/11/2018 Pt Xql7550 PT 25.1 seconds 05/06/2018 Pt Mjo5718 INR 2.3 05/06/2018 Pt Eag5948 Low Intensity - 1.5-2.0 05/06/2018 Pt Xda7767 Mod intensity - 2.0-3.0 05/06/2018 Pt Bek1982 Hi intensity - 3.0-4.0 05/06/2018 Pt Lad2725 PT 28.0 seconds 04/12/2018 Pt Sdm9555 INR 2.7 04/12/2018 Pt Cge4731 Low Intensity - 1.5-2.0 04/12/2018 Pt Hms2125 Mod intensity - 2.0-3.0 04/12/2018 Pt Oea8526 Hi intensity - 3.0-4.0 04/12/2018 Pt Fbq0140 PT 24.4 seconds 03/03/2018 Pt Flz8566 INR 2.2 03/03/2018 Pt Esb9962 Low Intensity - 1.5-2.0 03/03/2018 Pt Gmw7475 Mod intensity - 2.0-3.0 03/03/2018 Pt Wcm4993 Hi intensity - 3.0-4.0 03/03/2018 Pt Ipw8575 PT 28.9 seconds 02/15/2018 Pt Psh0607 INR 2.8 02/15/2018 Pt Tlh1103 Low Intensity - 1.5-2.0 02/15/2018 Pt Rim8617 Mod intensity - 2.0-3.0 02/15/2018 Pt Hmz0060 Hi intensity - 3.0-4.0 02/15/2018 Pt Hyc8641 PT 27.2 seconds 02/02/2018 Pt Ees4165 INR 2.6 02/02/2018 Pt Hik7495 Low Intensity - 1.5-2.0 02/02/2018 Pt Rga9203 Mod intensity - 2.0-3.0 02/02/2018 Pt Vjv7771 Hi intensity - 3.0-4.0 02/02/2018 Pt Uar6034 PT 18.2 seconds 01/28/2018 Pt Zgh2810 INR 1.6 01/28/2018 Pt Dic0079 Low Intensity - 1.5-2.0 01/28/2018 Pt Msi5763 Mod intensity - 2.0-3.0 01/28/2018 Pt Kqa4302 Hi intensity - 3.0-4.0 01/28/2018 Pt Lci9080 PT 19.8 seconds 01/22/2018 Pt Wlp0652 INR 1.7 01/22/2018 Pt Yxg3751 Low Intensity - 1.5-2.0 01/22/2018 Pt Lnz8830 Mod intensity - 2.0-3.0 01/22/2018 Pt Czh5479 Hi intensity - 3.0-4.0 01/22/2018 Pt Onm0225 PT 38.3 seconds 01/15/2018 Pt Eam2196 INR 3.8 01/15/2018 Pt Yrq6074 Low Intensity - 1.5-2.0 01/15/2018 Pt Cjd8122 Mod intensity - 2.0-3.0 01/15/2018 Pt Awm5452 Hi intensity - 3.0-4.0 01/15/2018 Pt Rwz0484 PT 27.1 seconds 01/05/2018 Pt Cjg4679 INR 2.5 01/05/2018 Pt Jsl9763 Low Intensity - 1.5-2.0 01/05/2018 Pt Yec1457 Mod intensity - 2.0-3.0 01/05/2018 Pt Xpa1505 Hi intensity - 3.0-4.0 01/05/2018 Pt Gfs6315 PT 27.2 seconds 12/25/2017 Pt Eju9534 INR 2.5 12/25/2017 Pt Mlo3168 Low Intensity - 1.5-2.0 12/25/2017 Pt Vki5808 Mod intensity - 2.0-3.0 12/25/2017 Pt Dfa9047 Hi intensity - 3.0-4.0 12/25/2017 Pt Fyf3248 PT 22.2 seconds 12/09/2017 Pt Vwd9469 INR 2.0 12/09/2017 Pt Pfr0303 Low Intensity - 1.5-2.0 12/09/2017 Pt Gbv8325 Mod intensity - 2.0-3.0 12/09/2017 Pt Ffm4652 Hi intensity - 3.0-4.0 12/09/2017 Pt Wqw8251 PT 20.5 seconds 11/27/2017 Pt Xqa6784 INR 1.8 11/27/2017 Pt Odt9644 Low Intensity - 1.5-2.0 11/27/2017 Pt Luw9714 Mod intensity - 2.0-3.0 11/27/2017 Pt Ykn8442 Hi intensity - 3.0-4.0 11/27/2017 Pt Uzt8583 PT 16.8 seconds 11/23/2017 Pt Ozl0281 INR 1.4 11/23/2017 Pt Jse2810 Low Intensity - 1.5-2.0 11/23/2017 Pt Vbq1187 Mod intensity - 2.0-3.0 11/23/2017 Pt Jco9596 Hi intensity - 3.0-4.0 11/23/2017 Pt Ucn2198 PT 13.4 seconds 11/20/2017 Pt Hpq6982 INR 1.1 11/20/2017 Pt Iuo5837 Low Intensity - 1.5-2.0 11/20/2017 Pt Ioe8329 Mod intensity - 2.0-3.0 11/20/2017 Pt Gmz5107 Hi intensity - 3.0-4.0 11/20/2017 Pt Dov4394 PT 29.3 seconds 09/22/2017 Pt Sef7858 INR 2.7 09/22/2017 Pt Xie8987 Low Intensity - 1.5-2.0 09/22/2017 Pt Rya9443 Mod intensity - 2.0-3.0 09/22/2017 Pt Vxx1008 Hi intensity - 3.0-4.0 09/22/2017 Pt Gvy3164 PT 24.6 seconds 08/27/2017 Pt Yvw8018 INR 2.2 08/27/2017 Pt Shy7843 Low Intensity - 1.5-2.0 08/27/2017 Pt Dnc5924 Mod intensity - 2.0-3.0 08/27/2017 Pt Sds2439 Hi intensity - 3.0-4.0 08/27/2017 Pt Gpz5859 PT 24.9 seconds 08/03/2017 Pt Cmg2051 INR 2.3 08/03/2017 Pt Kli8373 Low Intensity - 1.5-2.0 08/03/2017 Pt Chv9352 Mod intensity - 2.0-3.0 08/03/2017 Pt Cpy7397 Hi intensity - 3.0-4.0 08/03/2017 Pt Tri8116 PT 24.4 seconds 06/17/2017 Pt Xwm9992 INR 2.2 06/17/2017 Pt Nbb1940 Low Intensity - 1.5-2.0 06/17/2017 Pt Vwb7778 Mod intensity - 2.0-3.0 06/17/2017 Pt Olh8151 Hi intensity - 3.0-4.0 06/17/2017 Pt Utu1707 PT 26.8 seconds 06/01/2017 Pt Apg5652 INR 2.5 06/01/2017 Pt Odf9458 Low Intensity - 1.5-2.0 06/01/2017 Pt Bcq0454 Mod intensity - 2.0-3.0 06/01/2017 Pt Bop7515 Hi intensity - 3.0-4.0 06/01/2017 Pt Qam0288 PT 18.8 seconds 05/18/2017 Pt Efm6377 INR 1.6 05/18/2017 Pt Chn9848 Low Intensity - 1.5-2.0 05/18/2017 Pt Yuc7578 Mod intensity - 2.0-3.0 05/18/2017 Pt Gbw4527 Hi intensity - 3.0-4.0 05/18/2017 Pt Umd6103 PT 18.6 seconds 04/27/2017 Pt Wfb1021 INR 1.6 04/27/2017 Pt Dzs5825 Low Intensity - 1.5-2.0 04/27/2017 Pt Qey7396 Mod intensity - 2.0-3.0 04/27/2017 Pt Djl3371 Hi intensity - 3.0-4.0 04/27/2017 Pt Aey9052 PT 26.1 seconds 04/13/2017 Pt Nvf1941 INR 2.4 04/13/2017 Pt Kzr8933 Low Intensity - 1.5-2.0 04/13/2017 Pt Wnj3647 Mod intensity - 2.0-3.0 04/13/2017 Pt Uby1322 Hi intensity - 3.0-4.0 04/13/2017 Comp Metabolic Qme148 NA 140 mEq/L 03/17/2017 Comp Metabolic Elg603 K 4.4 mEq/L 03/17/2017 Comp Metabolic Gvr382 CL 104 mEq/L 03/17/2017 Comp Metabolic Zqs854 CO2 30.0 mEq/L 03/17/2017 Comp Metabolic Nor972 ANION GAP 10 03/17/2017 Comp Metabolic Yql085 GLUCOSE 122 mg/dL 03/17/2017 Comp Metabolic Ufk620 Creat 0.9 mg/dL 03/17/2017 Comp Metabolic Rdj020 eGFR 82 ml/min/1.73m2 03/17/2017 Comp Metabolic Nhj943 BUN 22 mg/dL 03/17/2017 Comp Metabolic Kjq048 B/C Ratio 23.7 Ratio 03/17/2017 Comp Metabolic Sxq869 CALCIUM 10.3 mg/dL 03/17/2017 Comp Metabolic Zrq210 ALK PHOS 62 U/L 03/17/2017 Comp Metabolic Jre314 AST(SGOT) 19 U/L 03/17/2017 Comp Metabolic Idl235 ALT(SGPT) 21 U/L 03/17/2017 Comp Metabolic Tol290 BILI T 0.5 mg/dL 03/17/2017 Comp Metabolic Lna638 ALBUMIN 4.1 g/dL 03/17/2017 Comp Metabolic Izs009 TPRO 6.9 g/dL 03/17/2017 Comp Metabolic Sri833 GLOB 2.8 g/dL 03/17/2017 Comp Metabolic Dud640 A/G Ratio 1.5 Ratio 03/17/2017 Comp Metabolic Bvr955 Osmo 284 mOsmo 03/17/2017 Lipid Ord30 CHOL [...] Ord30 C/HDL 2.1 Ratio 03/17/2017 Comp Metabolic Cqx668 NA 140 mEq/L 03/17/2017 Comp Metabolic Typ382 K 4.4 mEq/L 03/17/2017 Comp Metabolic Euo762 CL 104 mEq/L 03/17/2017 Comp Metabolic Ylm907 CO2 30.0 mEq/L 03/17/2017 Comp Metabolic Yya194 ANION GAP 10 03/17/2017 Comp Metabolic Roh717 GLUCOSE 122 mg/dL 03/17/2017 Comp Metabolic Mqc996 Creat 0.9 mg/dL 03/17/2017 Comp Metabolic Yap964 eGFR 82 ml/min/1.73m2 03/17/2017 Comp Metabolic Nhn610 BUN 22 mg/dL 03/17/2017 Comp Metabolic Bkn169 B/C Ratio 23.7 Ratio 03/17/2017 Comp Metabolic Pyg826 CALCIUM 10.3 mg/dL 03/17/2017 Comp Metabolic Zok258 ALK PHOS 62 U/L 03/17/2017 Comp Metabolic Ilr782 AST(SGOT) 19 U/L 03/17/2017 Comp Metabolic Org343 ALT(SGPT) 21 U/L 03/17/2017 Comp Metabolic Fkg172 BILI T 0.5 mg/dL 03/17/2017 Comp Metabolic Ziq057 ALBUMIN 4.1 g/dL 03/17/2017 Comp Metabolic Oae240 TPRO 6.9 g/dL 03/17/2017 Comp Metabolic Xni653 GLOB 2.8 g/dL 03/17/2017 Comp Metabolic Wwv996 A/G Ratio 1.5 Ratio 03/17/2017 Comp Metabolic Zwz133 Osmo 284 mOsmo 03/17/2017 Pt Rej1467 PT 23.7 seconds 03/12/2017 Pt Gww6199 INR 2.1 03/12/2017 Pt Efo3257 Low Intensity - 1.5-2.0 03/12/2017 Pt Jew4544 Mod intensity - 2.0-3.0 03/12/2017 Pt Unr1896 Hi intensity - 3.0-4.0 03/12/2017 Pt Agr3844 PT 21.3 seconds 02/10/2017 Pt Gec3840 INR 1.9 02/10/2017 Pt Xcl2686 Low Intensity - 1.5-2.0 02/10/2017 Pt Rtd0948 Mod intensity - 2.0-3.0 02/10/2017 Pt Eva9712 Hi intensity - 3.0-4.0 02/10/2017 Pt Nxd9431 PT 21.4 seconds 01/27/2017 Pt Uxw8303 INR 1.9 01/27/2017 Pt Xtx0918 Low Intensity - 1.5-2.0 01/27/2017 Pt Izz1374 Mod intensity - 2.0-3.0 01/27/2017 Pt Utw3295 Hi intensity - 3.0-4.0 01/27/2017 Pt Juk9111 PT 22.0 seconds 01/19/2017 Pt Xak5437 INR 1.9 01/19/2017 Pt Htn5127 Low Intensity - 1.5-2.0 01/19/2017 Pt Bur4447 Mod intensity - 2.0-3.0 01/19/2017 Pt Lsp0431 Hi intensity - 3.0-4.0 01/19/2017 Pt Blp1161 PT 28.3 seconds 01/05/2017 Pt Idn1394 INR 2.6 01/05/2017 Pt Ieh2623 Low Intensity - 1.5-2.0 01/05/2017 Pt Aga7055 Mod intensity - 2.0-3.0 01/05/2017 Pt Qxz6573 Hi intensity - 3.0-4.0 01/05/2017 Pt Ugt5121 PT 29.1 seconds 12/15/2016 Pt Wrj3908 INR 2.7 12/15/2016 Pt Fue6038 Low Intensity - 1.5-2.0 12/15/2016 Pt Atk7009 Mod intensity - 2.0-3.0 12/15/2016 Pt Vas1582 Hi intensity - 3.0-4.0 12/15/2016 Urine Culture Ucult Preliminary NO Growth Day 1 11/10/2016 Urine Culture Ucult Complete NO Growth Day 2 11/10/2016 Pt Bcs5079 PT 23.7 seconds 11/07/2016 Pt Gqc9306 INR 2.1 11/07/2016 Pt Zkv3853 Low Intensity - 1.5-2.0 11/07/2016 Pt Aoc7108 Mod intensity - 2.0-3.0 11/07/2016 Pt Leb1513 Hi intensity - 3.0-4.0 11/07/2016 Pt Gpb5342 PT 27.1 seconds 10/13/2016 Pt Qxl4439 INR 2.7 10/13/2016 Pt Vxl6014 Low Intensity - 1.5-2.0 10/13/2016 Pt Gdg5057 Mod intensity - 2.0-3.0 10/13/2016 Pt Spq6094 Hi intensity - 3.0-4.0 10/13/2016 Pt Wmg4190 PT 26.3 seconds 09/23/2016 Pt Cob4617 INR 2.6 09/23/2016 Pt Voc1433 Low Intensity - 1.5-2.0 09/23/2016 Pt Bhf5717 Mod intensity - 2.0-3.0 09/23/2016 Pt Dfj7436 Hi intensity - 3.0-4.0 09/23/2016 Pt Nrj3680 PT 20.4 seconds 09/09/2016 Pt Fii0662 INR 1.8 09/09/2016 Pt Sbn2844 Low Intensity - 1.5-2.0 09/09/2016 Pt Wip4943 Mod intensity - 2.0-3.0 09/09/2016 Pt Wou5764 Hi intensity - 3.0-4.0 09/09/2016 Pt Fwt5830 PT 24.1 seconds 08/26/2016 Pt Baw0085 INR 2.3 08/26/2016 Pt Rpc6292 Low Intensity - 1.5-2.0 08/26/2016 Pt Roe1628 Mod intensity - 2.0-3.0 08/26/2016 Pt Oiu8184 Hi intensity - 3.0-4.0 08/26/2016 Pt Zga0053 PT 26.1 seconds 08/12/2016 Pt Fuc6170 INR 2.6 08/12/2016 Pt Ptc5477 Low Intensity - 1.5-2.0 08/12/2016 Pt Mga0965 Mod intensity - 2.0-3.0 08/12/2016 Pt Oxg9160 Hi intensity - 3.0-4.0 08/12/2016 Pt Nei3184 PT 23.5 seconds 07/15/2016 Pt Hcf4939 INR 2.2 07/15/2016 Pt Yty8991 Low Intensity - 1.5-2.0 07/15/2016 Pt Xur1700 Mod intensity - 2.0-3.0 07/15/2016 Pt Wrm6249 Hi intensity - 3.0-4.0 07/15/2016 Urine Culture Ucult Preliminary NO Growth Day 1 07/10/2016 Urine Culture Ucult Complete NO Growth Day 2 07/10/2016 Pt Ydp1448 PT 27.9 seconds 06/30/2016 Pt Ttl9601 INR 2.8 06/30/2016 Pt Lnq9436 Low Intensity - 1.5-2.0 06/30/2016 Pt Kkk2053 Mod intensity - 2.0-3.0 06/30/2016 Pt Bir2579 Hi intensity - 3.0-4.0 06/30/2016 Pt Mkf7236 PT 23.7 seconds 06/12/2016 Pt Sft0147 INR 2.3 06/12/2016 Pt Pwx1460 Low Intensity - 1.5-2.0 06/12/2016 Pt Kzc4588 Mod intensity - 2.0-3.0 06/12/2016 Pt Fzm3833 Hi intensity - 3.0-4.0 06/12/2016 Pt Qph0027 PT 36.5 seconds 06/06/2016 Pt Ios8998 INR 4.0 06/06/2016 Pt Kts5140 Low Intensity - 1.5-2.0 06/06/2016 Pt Hmm9388 Mod intensity - 2.0-3.0 06/06/2016 Pt Bxe6800 Hi intensity - 3.0-4.0 06/06/2016 Tibc Ord40 Iron 76 ug/dl 05/05/2016 Tibc Ord40 UIBC 210 ug/dL 05/05/2016 Tibc Ord40 TIBC 286 ug/dL 05/05/2016 Tibc Ord40 Fe-%Sat 26.6 % 05/05/2016 Pt Smf7182 PT 29.0 seconds 05/05/2016 Pt Qck1623 INR 2.9 05/05/2016 Pt Fdf0235 Low Intensity - 1.5-2.0 05/05/2016 Pt Lnk5118 Mod intensity - 2.0-3.0 05/05/2016 Pt Vdy9431 Hi intensity - 3.0-4.0 05/05/2016 Ferritin Ord22 FERRITIN 32.7 ng/mL 05/05/2016 Pt Dsp2635 PT 31.1 seconds 04/08/2016 Pt Kxk7356 INR 3.2 04/08/2016 Pt Tee8004 Low Intensity - 1.5-2.0 04/08/2016 Pt Xkx5911 Mod intensity - 2.0-3.0 04/08/2016 Pt Xnr7850 Hi intensity - 3.0-4.0 04/08/2016 Cbc With [...] 32.4 pg 03/24/2016 Cbc With Differential Ord2 [place]% 11.3 % 03/24/2016 Cbc With Differential Ord2 [...] 2.29 K/ul 03/24/2016 Cbc With Differential Ord2 [place] ABS# 0.8 K/ul 03/24/2016 Cbc With Differential Ord2 Eos ABS# 0.5 K/ul 03/24/2016 Cbc With Differential Ord2 Baso ABS# 0.0 K/ul 03/24/2016 Pt Xrv1165 PT 17.3 seconds 03/24/2016 Pt Hfa1760 INR 1.5 03/24/2016 Pt Mqs7887 Low Intensity - 1.5-2.0 03/24/2016 Pt Pjo9292 Mod intensity - 2.0-3.0 03/24/2016 Pt Enl5262 Hi intensity - 3.0-4.0 03/24/2016 Pt Ftp4262 PT 17.8 seconds 03/12/2016 Pt Cnt8432 INR 1.5 03/12/2016 Pt Uyg9739 Low Intensity - 1.5-2.0 03/12/2016 Pt Kls7428 Mod intensity - 2.0-3.0 03/12/2016 Pt Lbr5016 Hi intensity - 3.0-4.0 03/12/2016 Urine Culture Ucult Preliminary NO Growth Day 1 02/29/2016 Urine Culture Ucult Complete NO Growth Day 2 02/29/2016 Lipid Ord30 CHOL 129 mg/dL 02/21/2016 Lipid Ord30 HDL 59.0 mg/dl 02/21/2016 Lipid Ord30 TRIG 90 mg/dL 02/21/2016 Lipid Ord30 LDL 52 mg/dL 02/21/2016 Lipid Ord30 C/HDL 2.2 Ratio 02/21/2016 Comp Metabolic Vxk721 NA 136 mEq/L 02/21/2016 Comp Metabolic Nzy028 K 4.4 mEq/L 02/21/2016 Comp Metabolic Stu416 CL 102 mEq/L 02/21/2016 Comp Metabolic Ahi374 CO2 29.0 mEq/L 02/21/2016 Comp Metabolic Kwv549 ANION GAP 9 02/21/2016 Comp Metabolic Lgq638 GLUCOSE 118 mg/dL 02/21/2016 Comp Metabolic Zrs409 Creat 1.0 mg/dL 02/21/2016 Comp Metabolic Iid488 eGFR 72 ml/min/1.73m2 02/21/2016 Comp Metabolic Iiv581 BUN 23 mg/dL 02/21/2016 Comp Metabolic Dka620 B/C Ratio 22.1 Ratio 02/21/2016 Comp Metabolic Vmu726 CALCIUM 9.9 mg/dL 02/21/2016 Comp Metabolic Xkx714 ALK PHOS 57 U/L 02/21/2016 Comp Metabolic Zqh035 AST(SGOT) 17 U/L 02/21/2016 Comp Metabolic Bmr907 ALT(SGPT) 19 U/L 02/21/2016 Comp Metabolic Zcp557 BILI T 0.6 mg/dL 02/21/2016 Comp Metabolic Rri872 ALBUMIN 3.9 g/dL 02/21/2016 Comp Metabolic Iuh212 TPRO 6.9 g/dL 02/21/2016 Comp Metabolic Kie482 GLOB 3.0 g/dL 02/21/2016 Comp Metabolic Uql742 A/G Ratio 1.3 Ratio 02/21/2016 Comp Metabolic Nmv925 Osmo 277 mOsmo 02/21/2016 Pt Jap8143 PT 19.8 seconds 02/21/2016 Pt Ycr4299 INR 1.8 02/21/2016 Pt Tgy6838 Low Intensity - 1.5-2.0 02/21/2016 Pt Mzs2990 Mod intensity - 2.0-3.0 02/21/2016 Pt Wmq9473 Hi intensity - 3.0-4.0 02/21/2016 Pt Lsz0624 PT 24.1 seconds 01/15/2016 Pt Imf8825 INR 2.3 01/15/2016 Pt Vla0870 Low Intensity - 1.5-2.0 01/15/2016 Pt Faj7892 Mod intensity - 2.0-3.0 01/15/2016 Pt Qyf4046 Hi intensity - 3.0-4.0 01/15/2016 Pt Iic8748 PT 26.5 seconds 01/03/2016 Pt Jbb3198 INR 2.6 01/03/2016 Pt Dhy5895 Low Intensity - 1.5-2.0 01/03/2016 Pt Lml4758 Mod intensity - 2.0-3.0 01/03/2016 Pt Ptt6988 Hi intensity - 3.0-4.0 01/03/2016 Pt Ysc9570 PT 15.3 seconds 11/30/2015 Pt Vbi0271 INR 1.3 11/30/2015 Pt Swn8917 Low Intensity - 1.5-2.0 11/30/2015 Pt Ucs9589 Mod intensity - 2.0-3.0 11/30/2015 Pt Dez5509 Hi intensity - 3.0-4.0 11/30/2015 Review of Systems System Result Effective Dates Constitutional recent illness 04/23/2018 Constitutional No anorexia [...] impaction 11/21/2015 None Procedures Procedure Codes Date TRIAMCINOLONE ACET INJ NOS CPT-4: J3301 04/23/2018 ADMIN INFLUENZA VIRUS VAC CPT-4: G0008 01/04/2018 FLU VACC PRSV FREE INC ANTIG Formatting Model/CDA Sections, Assigned to/Arabella Carballo CPT-4: 86299Uvtxaxr 01/04/2018 URINALYSIS NONAUTO W/O SCOPE CPT-4: 71859 11/07/2016 URINALYSIS NONAUTO W/O SCOPE CPT-4: 99997 02/26/2016 ADMIN INFLUENZA VIRUS VAC CPT-4: G0008 01/03/2016 FLU VACC 4 ARIANNA 3 YRS PLUS IM SNOMED CT: [id number] CPT-4: 71465 01/03/2016 Vital Signs Date Vital 04/23/2018 Blood Pressure 1: 118/64 Code : 8480-6 BMI: 35.0 Code : 90036-8 Heart Rate 1 : 88 bpm Height: 5'4" SpO2: 96% Temperature: 36.3 (C) / 97.4 (F) Weight: 204 lbs 04/12/2018 Blood Pressure 1: 144/76 Code : 8480-6 BMI: 35.0 Code : 47092-0 Heart Rate 1 : 75 bpm Height: 5'4" SpO2: 98% Weight: 204 lbs 03/08/2018 Blood Pressure 1: 124/70 Code : 8480-6 Heart Rate 1: 84 bpm Height: 5'4" SpO2: 92% Weight: 03/02/2018 Blood Pressure 1: 138/76 Code : 8480-6 Heart Rate 1: 87 bpm Height: 5'4" SpO2: 98% Weight: 02/26/2018 Blood Pressure 1: 148/68 Code : 8480-6 BMI: 35.0 Code : 48486-2 Heart Rate 1 : 80 bpm Height: 5'4" SpO2: 97% Weight: 204 lbs 01/28/2018 Blood Pressure 1: 150/60 Code : 8480-6 Heart Rate 1: 91 bpm SpO2: 92% 12/29/2017 Blood Pressure 1: 144/62 Code : 8480-6 BMI: 34.7 Code : 62370-5 Heart Rate 1 : 73 bpm Height: 5'4" SpO2: 97% Weight: 202 lbs 09/29/2017 Blood Pressure 1: 132/80 Code : 8480-6 Heart Rate 1: 76 bpm SpO2: 97% Weight: 204 lbs 08/11/2017 Blood Pressure 1: 132/66 Code : 8480-6 BMI: 35.0 Code : 94156-2 Heart Rate 1 : 81 bpm Height: 5'4" SpO2: 96% Weight: 204 lbs 03/16/2017 Blood Pressure 1: 132/70 Code : 8480-6 BMI: 34.5 Code : 06821-9 Heart Rate 1 : 78 bpm Height: 5'4" SpO2: 98% Weight: 201 lbs 12/15/2016 Blood Pressure 1: 140/80 Code : 8480-6 BMI: 34.2 Code : 05997-0 Heart Rate 1 : 69 bpm Height: 5'4" SpO2: 98% Weight: 199 lbs 11/07/2016 Blood Pressure 1: 158/82 Code : 8480-6 BMI: 34.7 Code : 50081-0 Heart Rate 1 : 76 bpm Height: 5'4" SpO2: 98% Weight: 202 lbs 10/14/2016 Blood Pressure 1: 140/80 Code : 8480-6 BMI: 34.0 Code : 19632-3 Heart Rate 1 : 79 bpm Height: 5'4" SpO2: 96% Weight: 198 lbs 09/10/2016 Blood Pressure 1: 158/80 Code : 8480-6 BMI: 34.3 Code : 99570-4 Heart Rate 1 : 75 bpm Height: 5'4" SpO2: 98% Weight: 200 lbs 07/08/2016 Blood Pressure 1: 160/74 Code : 8480-6 BMI: 35.2 Code : 97023-8 Heart Rate 1 : 94 bpm Height: 5'4" SpO2: 97% Weight: 205 lbs 06/16/2016 Blood Pressure 1: 138/76 Code : 8480-6 BMI: 35.0 Code : 77590-8 Heart Rate 1 : 68 bpm Height: 5'4" SpO2: 98% Weight: 204 lbs 01/31/2016 Blood Pressure 1: 136/64 Code : 8480-6 BMI: 33.6 Code : 09901-8 Heart Rate 1 : 92 bpm Height: 5'4" SpO2: 98% Weight: 196 lbs 01/03/2016 Blood Pressure 1: 142/68 Code : 8480-6 BMI: 33.8 Code : 19003-5 Heart Rate 1 : 80 bpm Height: 5'4" SpO2: 97% Weight: 197 lbs 11/30/2015 Blood Pressure 1: 158/80 Code : 8480-6 Heart Rate 1: 83 bpm SpO2: 98% 11/21/2015 Blood Pressure 1: 172/80 Code : 8480-6 BMI: 32.8 Code : 46519-6 Heart Rate 1 : 87 bpm Height: 5'4" SpO2: 98% Weight: 191 lbs Functional Status No Functional Status data History of Present Illness Symptom Name Status Result Effective Date Notes Onset and Resolution sudden in onset 04/23/2018 [...] data Encounters Encounter Performer Location Codes Date ([id number]) [id number] EST. PATIENT, LEVEL III Diagnosis: Cough[ICD10: R05] Diagnosis: Acute upper respiratory infection, unspecified[ICD10: J06.9] Kelli Gallardo MD, [facility] CPT-4: 77804 04/23/2018 ([id number]) 38623 EST. 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 PATIENT, LEVEL II Diagnosis: Cellulitis of right lower limb[ICD10: L03.115] [facility] CPT-4: 65812 03/08/2018 ([id number]) Miscellaneous no charge Diagnosis: Cellulitis of right lower limb[ICD10: L03.115] Kelli Gallardo MD, [facility] CPT-4: 45632 03/02/2018 ([id number]) 87066 EST. PATIENT, LEVEL III Diagnosis: Cellulitis of right lower limb[ICD10: L03.115] Kelli Gallardo MD, [facility] CPT-4: 46173 02/26/2018 17607 EST. PATIENT, LEVEL III Diagnosis: Cellulitis of left lower limb[ICD10: L03.116] Octavia Gallardo MD, [facility] CPT-4: 12085 01/28/2018 ([id number]) 42831 EST. PATIENT, LEVEL III Diagnosis: Essential (primary) hypertension[ICD10: I10] Diagnosis: [facility]FP (current) use of anticoagulants[ICD10: Z79.01] Diagnosis: Nocturia[ICD10: R35.1] Pamela Gallardo MD, [facility] CPT-4: 58839 12/29/2017 ([id number]) 05851 EST. PATIENT, LEVEL IV Diagnosis: Essential (primary) hypertension[ICD10: I10] Diagnosis: Urge incontinence[ICD10: N39.41] Pamela Gallardo MD, [facility] CPT-4: 50359 09/29/2017 ([id number]) 32227 EST. PATIENT, LEVEL IV Diagnosis: Essential (primary) hypertension[ICD10: I10] Diagnosis: Mixed hyperlipidemia[ICD10: E78.2] Diagnosis: [facility] (current) use of anticoagulants[ICD10: Z79.01] Pamela Gallardo MD, [facility] CPT-4: 89590 08/11/2017 ([id number]) 40022 EST. 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 CPT-4: 15738 03/16/2017 ([id number]) 93766 EST. PATIENT, LEVEL IV Diagnosis: Essential (primary) hypertension[ICD10: I10] Diagnosis: Mixed hyperlipidemia[ICD10: E78.2] Diagnosis: [facility] (current) use of anticoagulants[ICD10: Z79.01] Pamela Gallardo MD, [facility] CPT-4: 43247 12/15/2016 ([id number]) 78954 EST. 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 CPT-4: 90999 11/07/2016 ([id number]) 09899 EST. PATIENT, LEVEL IV Diagnosis: Essential (primary) hypertension[ICD10: I10] Diagnosis: Mixed hyperlipidemia[ICD10: E78.2] Diagnosis: Gross hematuria[ICD10: R31.0] Pamela Gallardo MD [facility] CPT- 4: 79720 10/14/2016 ([id number]) 77087 EST. 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 CPT-4: 22513 09/10/2016 22934 EST. PATIENT, LEVEL III Diagnosis: Gross hematuria[ICD10: R31.0] Octavia Gallardo MD, [facility] CPT-4 : 77729 07/08/2016 ([id number]) 23148 EST. PATIENT, LEVEL IV Diagnosis: Essential (primary) hypertension[ICD10: I10] Diagnosis: Mixed hyperlipidemia[ICD10: E78.2] Diagnosis: [facility] (current) use of anticoagulants[ICD10: Z79.01] Pamela Gallardo MD, [facility] CPT-4: 62829 06/16/2016 ([id number]) 84816 EST. PATIENT, LEVEL IV Diagnosis: Essential (primary) hypertension[ICD10: I10] Diagnosis: Mixed hyperlipidemia[ICD10: E78.2] Pamela Gallardo MD, [facility] CPT-4: 65648 01/31/2016 ([id number]) 94928 EST. PATIENT, LEVEL IV Diagnosis: Essential (primary) hypertension[ICD10: I10] Diagnosis: Mixed hyperlipidemia[ICD10: E78.2] Diagnosis: Encounter for immunization[ICD10: Z23] [facility] CPT-4: 80956 01/03/2016 ([id number]) Miscellaneous no charge Diagnosis: Essential (primary) hypertension[ICD10: I10] [facility] CPT-4: 14625 11/30/2015 ([id number]) OFFICE VISIT, NEW - LEVEL 4 Diagnosis: Essential (primary) hypertension[ICD10: I10] Diagnosis: Mixed hyperlipidemia[ICD10: E78.2] Diagnosis: Impacted cerumen, bilateral[ICD10: H61.23] [facility] CPT-4: 72740 11/21/2015 Plan of Care Planned Activity Notes Codes Status Date Appointment: Octavia Zarate WPtel: [phone] [id number] (30 min) Complex 06/16/2018 Visit Plan: URI - Pt advised to increase fluids, vitamin C. Discussed natural and expected course of this diagnosis and need to alert me if symptoms do not follow expected course, or if any worse. RX sent to patient' s pharmacy. 04/23/2018 Appointment: Kelli Mccullough WPtel: [phone] [place] (15 min) Moderate 04/23/2018 Patient Education: [...] and 3.5. 04/12/2018 Appointment: Pamela Gallardo WPtel: [phone] [facility] [place] (15 min) Moderate 04/12/2018 Patient Education: Patient Medication Summary Completed 04/12/2018 Visit Plan: Ulcer of right leg -healed-no further treatment indicated 03/08/2018 Appointment: Kelli Mccullough WPtel: [address] [place], [place] [phone] (15 min) Moderate 03/08/2018 Patient Education: Patient Medication Summary Completed 03/08/2018 Visit Plan: Ulcer of leg -improved-continue wound care as directed-follow up in 1 week, sooner if needed 03/02/2018 Appointment: Kelli Mccullough WPtel: [phone] (15 min) Moderate 03/02/2018 Patient Education: Patient Medication Summary Completed 03/02/2018 Visit Plan: Cellulitis - continue with oral antibiotics as previously directed, return to clinic as previously directed, call for acute change in symptoms, worsening redness, warmth, discharge. 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 01/28/2018 Appointment: Octavia Zarate WPtel: [address] [place], [place] [phone] (15 min) Moderate 01/28/2018 Patient Education: Patient [...] care. 12/29/2017 [facility]ment: [id number] ([facility]) Moderate 12/29/2017 Patient Education: Patient Medication Summary Completed 12/29/2017 Appointment: Pamela Gallardo WPtel: [phone] [facility] Same Day appointments 12/16/2017 Visit Plan: [...] pharmacy 09/29/2017 Appointment: Pamela Gallardo WPtel: [phone] [facility] (15 min) Moderate 09/29/2017 Patient Education: [...] good 08/11/2017 App[facility]ment[id number] ([facility] min) Moderate 08/11/2017 Patient Education: Patient Medication Summary Completed 08/11/2017 Appointment: Pamela Gallardo WPtel: [address] [place], [place] [phone] (15 min) Moderate 08/06/2017 Appointment: Pamela Gallardo WPtel: [phone] (15 min) Moderate 08/04/2017 Visit Plan: Hypertension [...] monitor symptoms. 03/16/2017 Appointment: Pamela Gallardo WPtel: [address] [place], [place] [phone] (15 min) Moderate 03/16/2017 Patient Education: Patient Medication Summary Completed 03/16/2017 Patient Education: Obesity Completed 03/16/2017 Appointment: Pamela Gallardo WPtel: [address] [place], [place] [id number] (15 min) Moderate 12/30/2016 Visit Plan: Hypertension [...] today. 12/15/2016 Appointment: Pamela Gallardo WPtel: [phone] [facility] [place] (15 min) Moderate 12/15/2016 Patient Education: Patient Medication Summary Completed 12/15/2016 Visit Plan: Iron deficiency uzdlmz-upqy-tccftt bleeding- INR has been stable-continue multivitamin with iron daily Hematuria-3+ blood in urine-check PT/INR today-culture urine 11/07/2016 Appointment: Kelli Mccullough WPtel: [phone] [phone] [place] (15 min) Moderate 11/07/2016 Patient [...] medications. 10/14/2016 Appointment: [phone] [place] (15 min) Moderate 10/14/2016 Patient Education: Patient Medication Summary Completed 10/14/2016 Patient Education: Obesity Completed 10/14/2016 Appointment: [phone] [place] (15 min) Moderate 10/09/2016 Visit Plan: [...] concerns. 07/08/2016 Appointment: [facility]arate [facility]el: [id number] [place] (15 min) Moderate 07/08/2016 Patient Education: [...] with coumadin. 06/16/2016 Appointment: Pamela Gallardo WPtel: [phone] [facility] (15 min) Moderate 06/16/2016 Patient Education: Patient Medication Summary Completed 06/16/2016 Patient Education: Obesity Completed 06/16/2016 Appointment: Pamela Gallardo WPtel: [facility] [place] (15 min) Moderate 05/22/2016 Patient [...] medications. 01/31/2016 Appointment: Pamela Gallardo WPtel: [phone] [facility] [place] (15 min) Moderate 01/31/2016 Patient [...] to medications. 01/03/2016 Appointment: Pamela Gallardo WPtel: [address] [place] [id number] (15 min) Moderate 01/03/2016 Patient Education: Patient [...] medications. 11/21/2015 Appointment: [id number] [facility] 11/21/2015 Patient Education: Patient Medication [...] liver response to medications. . Iron deficiency [id number] bleeding-INR has been stable-continue multivitamin with iron [...]
--- OUTSIDE RECORDS SUMMARY | 2018-07-09 11:30 | XMS REPORT | CCD ---
Author Author [facility]ela [facility] Organization [facility] Address [address] [place] [address] Phone Care Team Providers Care Compliance Administrator Name Role Phone PP Unavailable CCM Unavailable Summary Purpose Interface Exchange Insurance Providers Payer name Policy type / Coverage type Covered republican ID Effective Begin Date Effective End Date WPS Medicare Part B Medicare Part B [id number] Unknown [facility] Medicare Part B [id number] Unknown Family history Father Diagnosis Age At [...] Unknown Retired 11/21/[address]: 3711629 Former smoker Quit September 2014 11/21/[address]: 482140 Currently drinks alcohol 11/21/2015 Has the patient ever used illegal drugs? 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 ICD-9: V58.61 ICD-10: Z79.01 Active 06/16/2016 Unknown Malignant neoplasm of prostate ICD-9: 185 [...] Condition Codes Effective Dates Condition Status Acute upper respiratory infection, unspecified ICD-9: 465.9 ICD-10: J06.9 04/23/2018 Active Cough ICD-9: 786.2 ICD-10: R05 04/23/2018 Active Essential (primary) hypertension ICD-9: 401.1 ICD-10: I10 01/30/2016 Active USP (current) use of anticoagulants ICD-9: V58.61 ICD-10: Z79.01 06/16/2016 Active Malignant neoplasm of prostate ICD-9: 185 [...] Start Date Stop Date Status Fill Instructions Kenalog 40 mg/mL suspension for injection RxNorm: 9598685 Milliliter(s) Inj 04/23/2018 04/23/2018 Inactive Keflex 500 mg capsule RxNorm: 869986 1 Capsule(s) PO TID 201804/29/2018 Inactive Keflex 500 mg capsule RxNorm: 278793 1 Capsule(s) PO TID 201703/04/2018 Inactive Bactrim DS 800 mg-160 mg tablet RxNorm: 451069 1 Tablet(s) PO BID 01/28/2018 02/06/2018 Inactive warfarin 5 mg tablet RxNorm: 966611 1 Tablet(s) PO UD on Thursday - goal for INR is 2.3 12/25/2017 08/21/2018 Active warfarin 7.5 mg tablet RxNorm: 356864 1 Tablet(s) PO daily except Sat take 5mg 12/25/2017 12/19/2018 Active Lovenox 40 mg/0.4 mL subcutaneous syringe RxNorm: 792984 1 Milliliter(s) SQ BID 10/14/2017 No Stop Date Active Holding coumadin x 5 days. Start the day after stopping coumadin for procedure. Hold the day of surgery. The day after surgery resume BID x 4 days. Vesicare 10 mg tablet RxNorm: 170011 1 Tablet(s) PO QPM 2017 No Stop Date Active lisinopril 20 mg tablet RxNorm: 061264 TAKE ONE TABLET BY MOUTH ONCE DAILY 06/23/2017 No Stop Date Active warfarin 5 mg tablet RxNorm: 047361 1 Tablet(s) PO UD on Thursday and - goal for INR is 2.3 02/11/2017 10/08/2017 Inactive lisinopril 20 mg tablet RxNorm: 974307 1 Tablet(s) PO daily 06/22/2017 Inactive warfarin 7.5 mg tablet RxNorm: 358719 1 Tablet(s) PO daily except Thu10/14/2016 10/08/2017 Inactive warfarin 5 mg tablet RxNorm: 076869 1 Tablet(s) PO UD on Thursday and - goal for INR is 2.3 10/14/2016 02/10/2017 Inactive warfarin 5 mg tablet RxNorm: 021469 1 Tablet(s) PO UD on Thursday10/14/2016 10/13/2016 Inactive warfarin 7.5 mg tablet RxNorm: 599429 1 Tablet(s) PO daily 10/13/2016 Inactive warfarin 7.5 mg tablet RxNorm: 685622 1 Tablet(s) PO daily 03/201708/17/2016 Inactive Norvasc 5 mg tablet RxNorm: 108156 1 Tablet(s) PO QPM 201512/14/2016 Inactive iron 65 mg RxNorm: 1 PO daily No Start Date Active aspirin 81 mg chewable tablet RxNorm: 651809 1 Tablet(s) PO daily No Start Date Active amlodipine 2.5 mg tablet RxNorm: 629173 1 Tablet(s) PO daily No Start Date Active PreserVision AREDS 2 oral RxNorm: 1909221 oral No Start Date Active prednisone 5 mg tablet RxNorm: 011872 1 Tablet(s) PO BID No Start Date Active Citracal + D3 (calcium phosphate) oral RxNorm: 3988469 oral No Start Date Active Centrum Silver tablet RxNorm: 1 Tablet(s) PO daily No Start Date Active Zytiga 500 mg tablet RxNorm: 5128666 2 Tablet(s) PO daily No Start Date Active Colace 100 mg capsule RxNorm: 1854251 1-2 Capsule(s) PO as needed constipation No Start Date Active Oriana-C ER 1,000 mg-200 mg tablet,extended release RxNorm: 386084 1 Tablet(s) PO BID No Start Date Active carvedilol 6.25 mg tablet RxNorm: 152611 1 Tablet(s) PO BID No Start Date Active Imodium A-D 2 mg tablet RxNorm: 057052 1 Tablet(s) PO as needed diarrhea No Start Date Active atorvastatin 20 mg tablet RxNorm: 215068 1 Tablet(s) PO daily No Start Date Active carvedilol 6.25 mg tablet RxNorm: 568597 1 Tablet(s) PO BID No Start Date Active Lupron Depot intramuscular RxNorm: 257992 intramuscular No Start Date Active Lovenox 40 mg/0.4 mL subcutaneous syringe RxNorm: 199477 1 Milliliter(s) SQ BID No Start Date 10/13/2017 Inactive Holding coumadin x 5 days. Start the day after stopping coumadin for procedure. Hold the day of surgery. The day after surgery resume BID x 4 days. warfarin 5 mg tablet RxNorm: 958631 1 Tablet(s) PO every other day No Start Date 10/13/2016 Inactive warfarin 7.5 mg tablet RxNorm: 339610 1 Tablet(s) PO every other day No Start Date 07/15/2016 Inactive lisinopril 20 mg tablet RxNorm: 913598 1 Tablet(s) PO daily No Start Date 12/28/2016 Inactive clopidogrel 75 mg tablet RxNorm: 662398 1 Tablet(s) PO daily No Start Date 03/10/2016 Inactive Medication Administered Medication Codes Instructions Start Date Status Kenalog 40 mg/mL suspension for injection RxNorm: 6872585 Milliliter 04/23/2018 No longer Active Immunizations Vaccine Codes Date Status Influenza CVX: 141 01/04/2018 completed Influenza CVX: 141 01/03/2016 completed Assessments Condition Codes Effective Dates Cough ICD-10: R05 ICD-9: 786.2 04/23/2018 Acute upper respiratory infection, unspecified ICD-10: J06.9 ICD-9: 465.9 04/23/2018 Personal history of malignant neoplasm of prostate ICD-10: Z85.46 ICD-9: V10.46 04/12/2018 Malignant neoplasm of prostate ICD-10: C61 ICD-9: 185 04/12/2018 USP (current) use of anticoagulants ICD-10: Z79.01 ICD-9: [...] Code Item Item Code Result Date Pt Req1572 PT 14.3 seconds 06/11/2018 Pt Peh1741 INR 1.1 06/11/2018 Pt Gdn2555 Low Intensity - 1.5-2.0 06/11/2018 Pt God9234 Mod intensity - 2.0-3.0 06/11/2018 Pt Vne0926 Hi intensity - 3.0-4.0 06/11/2018 Pt Xyo9248 PT 25.1 seconds 05/06/2018 Pt Csx7336 INR 2.3 05/06/2018 Pt Jgc4995 Low Intensity - 1.5-2.0 05/06/2018 Pt Cch3110 Mod intensity - 2.0-3.0 05/06/2018 Pt Pfu2656 Hi intensity - 3.0-4.0 05/06/2018 Pt Dlj7729 PT 28.0 seconds 04/12/2018 Pt Mow9638 INR 2.7 04/12/2018 Pt Jdv9415 Low Intensity - 1.5-2.0 04/12/2018 Pt Uek6698 Mod intensity - 2.0-3.0 04/12/2018 Pt Dua1691 Hi intensity - 3.0-4.0 04/12/2018 Pt Byo7796 PT 24.4 seconds 03/03/2018 Pt Brk6503 INR 2.2 03/03/2018 Pt Pnd3186 Low Intensity - 1.5-2.0 03/03/2018 Pt Eei7291 Mod intensity - 2.0-3.0 03/03/2018 Pt Eat9962 Hi intensity - 3.0-4.0 03/03/2018 Pt Qfx9491 PT 28.9 seconds 02/15/2018 Pt Evx8737 INR 2.8 02/15/2018 Pt Ztm7511 Low Intensity - 1.5-2.0 02/15/2018 Pt Ral9132 Mod intensity - 2.0-3.0 02/15/2018 Pt Ugw4742 Hi intensity - 3.0-4.0 02/15/2018 Pt Xxj1013 PT 27.2 seconds 02/02/2018 Pt Iql9825 INR 2.6 02/02/2018 Pt Kpu1911 Low Intensity - 1.5-2.0 02/02/2018 Pt Gxu2197 Mod intensity - 2.0-3.0 02/02/2018 Pt Lmc3000 Hi intensity - 3.0-4.0 02/02/2018 Pt Jzp8225 PT 18.2 seconds 01/28/2018 Pt Qlq2892 INR 1.6 01/28/2018 Pt Nde3181 Low Intensity - 1.5-2.0 01/28/2018 Pt Jbg8284 Mod intensity - 2.0-3.0 01/28/2018 Pt Tny7680 Hi intensity - 3.0-4.0 01/28/2018 Pt Tkc3031 PT 19.8 seconds 01/22/2018 Pt Jlv1653 INR 1.7 01/22/2018 Pt Hsy8223 Low Intensity - 1.5-2.0 01/22/2018 Pt Ben5677 Mod intensity - 2.0-3.0 01/22/2018 Pt Gem9391 Hi intensity - 3.0-4.0 01/22/2018 Pt Onz9996 PT 38.3 seconds 01/15/2018 Pt Nxj7885 INR 3.8 01/15/2018 Pt Plx0535 Low Intensity - 1.5-2.0 01/15/2018 Pt Abi9320 Mod intensity - 2.0-3.0 01/15/2018 Pt Hyi1934 Hi intensity - 3.0-4.0 01/15/2018 Pt Oza5612 PT 27.1 seconds 01/05/2018 Pt Pwi3883 INR 2.5 01/05/2018 Pt Asg7408 Low Intensity - 1.5-2.0 01/05/2018 Pt Etu0015 Mod intensity - 2.0-3.0 01/05/2018 Pt Ysh0328 Hi intensity - 3.0-4.0 01/05/2018 Pt Vob9461 PT 27.2 seconds 12/25/2017 Pt Fhg7818 INR 2.5 12/25/2017 Pt Yyp1576 Low Intensity - 1.5-2.0 12/25/2017 Pt Zrc7590 Mod intensity - 2.0-3.0 12/25/2017 Pt Lfo4163 Hi intensity - 3.0-4.0 12/25/2017 Pt Zqb5572 PT 22.2 seconds 12/09/2017 Pt Wzc7286 INR 2.0 12/09/2017 Pt Gry5302 Low Intensity - 1.5-2.0 12/09/2017 Pt Ulr6716 Mod intensity - 2.0-3.0 12/09/2017 Pt Dbs8019 Hi intensity - 3.0-4.0 12/09/2017 Pt Qun2502 PT 20.5 seconds 11/27/2017 Pt Xag6171 INR 1.8 11/27/2017 Pt Wfz3393 Low Intensity - 1.5-2.0 11/27/2017 Pt Rai5781 Mod intensity - 2.0-3.0 11/27/2017 Pt Qel9851 Hi intensity - 3.0-4.0 11/27/2017 Pt Wsv3930 PT 16.8 seconds 11/23/2017 Pt Phj1853 INR 1.4 11/23/2017 Pt Egg6342 Low Intensity - 1.5-2.0 11/23/2017 Pt Ikj2935 Mod intensity - 2.0-3.0 11/23/2017 Pt Dos7969 Hi intensity - 3.0-4.0 11/23/2017 Pt Sxf1116 PT 13.4 seconds 11/20/2017 Pt Iok8102 INR 1.1 11/20/2017 Pt Lkv1792 Low Intensity - 1.5-2.0 11/20/2017 Pt Yib4857 Mod intensity - 2.0-3.0 11/20/2017 Pt Szn1435 Hi intensity - 3.0-4.0 11/20/2017 Pt Mad9740 PT 29.3 seconds 09/22/2017 Pt Qcu2217 INR 2.7 09/22/2017 Pt Hsc8559 Low Intensity - 1.5-2.0 09/22/2017 Pt Dzz9622 Mod intensity - 2.0-3.0 09/22/2017 Pt Adf7105 Hi intensity - 3.0-4.0 09/22/2017 Pt Fvr8250 PT 24.6 seconds 08/27/2017 Pt Dxc8465 INR 2.2 08/27/2017 Pt Jjv7373 Low Intensity - 1.5-2.0 08/27/2017 Pt Wnk7622 Mod intensity - 2.0-3.0 08/27/2017 Pt Vlh9880 Hi intensity - 3.0-4.0 08/27/2017 Pt Fmh4080 PT 24.9 seconds 08/03/2017 Pt Tzt9653 INR 2.3 08/03/2017 Pt Cwq8040 Low Intensity - 1.5-2.0 08/03/2017 Pt Ovw0858 Mod intensity - 2.0-3.0 08/03/2017 Pt Qfe0963 Hi intensity - 3.0-4.0 08/03/2017 Pt Rfi2596 PT 24.4 seconds 06/17/2017 Pt Lby7398 INR 2.2 06/17/2017 Pt Nhp5682 Low Intensity - 1.5-2.0 06/17/2017 Pt Chn5036 Mod intensity - 2.0-3.0 06/17/2017 Pt Lee7502 Hi intensity - 3.0-4.0 06/17/2017 Pt Lpc7257 PT 26.8 seconds 06/01/2017 Pt Hna8944 INR 2.5 06/01/2017 Pt Gyd7611 Low Intensity - 1.5-2.0 06/01/2017 Pt Vnd7740 Mod intensity - 2.0-3.0 06/01/2017 Pt Vhb8522 Hi intensity - 3.0-4.0 06/01/2017 Pt Nvc9826 PT 18.8 seconds 05/18/2017 Pt Grp6098 INR 1.6 05/18/2017 Pt Jgz3975 Low Intensity - 1.5-2.0 05/18/2017 Pt Vip3076 Mod intensity - 2.0-3.0 05/18/2017 Pt Ncs3216 Hi intensity - 3.0-4.0 05/18/2017 Pt Mok7005 PT 18.6 seconds 04/27/2017 Pt Mut4428 INR 1.6 04/27/2017 Pt Fcl8431 Low Intensity - 1.5-2.0 04/27/2017 Pt Vgt7064 Mod intensity - 2.0-3.0 04/27/2017 Pt Mvq4408 Hi intensity - 3.0-4.0 04/27/2017 Pt Bzr2707 PT 26.1 seconds 04/13/2017 Pt Ovk2089 INR 2.4 04/13/2017 Pt Coz4786 Low Intensity - 1.5-2.0 04/13/2017 Pt Yhg9043 Mod intensity - 2.0-3.0 04/13/2017 Pt Udv0621 Hi intensity - 3.0-4.0 04/13/2017 Comp Metabolic Kvm844 NA 140 mEq/L 03/17/2017 Comp Metabolic Hpc816 K 4.4 mEq/L 03/17/2017 Comp Metabolic Mny833 CL 104 mEq/L 03/17/2017 Comp Metabolic Weh183 CO2 30.0 mEq/L 03/17/2017 Comp Metabolic Dqe068 ANION GAP 10 03/17/2017 Comp Metabolic Qgd538 GLUCOSE 122 mg/dL 03/17/2017 Comp Metabolic Qay504 Creat 0.9 mg/dL 03/17/2017 Comp Metabolic Spl551 eGFR 82 ml/min/1.73m2 03/17/2017 Comp Metabolic Rvb159 BUN 22 mg/dL 03/17/2017 Comp Metabolic Lox515 B/C Ratio 23.7 Ratio 03/17/2017 Comp Metabolic Lgk515 CALCIUM 10.3 mg/dL 03/17/2017 Comp Metabolic Qnn602 ALK PHOS 62 U/L 03/17/2017 Comp Metabolic Lut781 AST(SGOT) 19 U/L 03/17/2017 Comp Metabolic Kgx426 ALT(SGPT) 21 U/L 03/17/2017 Comp Metabolic Gzl943 BILI T 0.5 mg/dL 03/17/2017 Comp Metabolic Nmt156 ALBUMIN 4.1 g/dL 03/17/2017 Comp Metabolic Syd649 TPRO 6.9 g/dL 03/17/2017 Comp Metabolic Seg901 GLOB 2.8 g/dL 03/17/2017 Comp Metabolic Ump874 A/G Ratio 1.5 Ratio 03/17/2017 Comp Metabolic Osv915 Osmo 284 mOsmo 03/17/2017 Lipid Ord30 CHOL [...] Ord30 C/HDL 2.1 Ratio 03/17/2017 Comp Metabolic Rms570 NA 140 mEq/L 03/17/2017 Comp Metabolic Vwt593 K 4.4 mEq/L 03/17/2017 Comp Metabolic Iay307 CL 104 mEq/L 03/17/2017 Comp Metabolic Eeu823 CO2 30.0 mEq/L 03/17/2017 Comp Metabolic Fld230 ANION GAP 10 03/17/2017 Comp Metabolic Vlo919 GLUCOSE 122 mg/dL 03/17/2017 Comp Metabolic Hhe069 Creat 0.9 mg/dL 03/17/2017 Comp Metabolic Wzs518 eGFR 82 ml/min/1.73m2 03/17/2017 Comp Metabolic Gel396 BUN 22 mg/dL 03/17/2017 Comp Metabolic Qzs741 B/C Ratio 23.7 Ratio 03/17/2017 Comp Metabolic Tsc295 CALCIUM 10.3 mg/dL 03/17/2017 Comp Metabolic Rot531 ALK PHOS 62 U/L 03/17/2017 Comp Metabolic Ogt267 AST(SGOT) 19 U/L 03/17/2017 Comp Metabolic Udj086 ALT(SGPT) 21 U/L 03/17/2017 Comp Metabolic Qlk641 BILI T 0.5 mg/dL 03/17/2017 Comp Metabolic Slw008 ALBUMIN 4.1 g/dL 03/17/2017 Comp Metabolic Xhk428 TPRO 6.9 g/dL 03/17/2017 Comp Metabolic Ygx939 GLOB 2.8 g/dL 03/17/2017 Comp Metabolic Xsr610 A/G Ratio 1.5 Ratio 03/17/2017 Comp Metabolic Zvn938 Osmo 284 mOsmo 03/17/2017 Pt Tne3224 PT 23.7 seconds 03/12/2017 Pt Enh1759 INR 2.1 03/12/2017 Pt Pnh5139 Low Intensity - 1.5-2.0 03/12/2017 Pt God4870 Mod intensity - 2.0-3.0 03/12/2017 Pt Ogr7454 Hi intensity - 3.0-4.0 03/12/2017 Pt Tpu3651 PT 21.3 seconds 02/10/2017 Pt Xio5326 INR 1.9 02/10/2017 Pt Rhr5106 Low Intensity - 1.5-2.0 02/10/2017 Pt Ttn2716 Mod intensity - 2.0-3.0 02/10/2017 Pt Voz6510 Hi intensity - 3.0-4.0 02/10/2017 Pt Nwk3404 PT 21.4 seconds 01/27/2017 Pt Ijh2094 INR 1.9 01/27/2017 Pt Mrv7803 Low Intensity - 1.5-2.0 01/27/2017 Pt Eot9987 Mod intensity - 2.0-3.0 01/27/2017 Pt Lfi5234 Hi intensity - 3.0-4.0 01/27/2017 Pt Hgt6657 PT 22.0 seconds 01/19/2017 Pt Ggz3778 INR 1.9 01/19/2017 Pt Biw3453 Low Intensity - 1.5-2.0 01/19/2017 Pt Oyr0828 Mod intensity - 2.0-3.0 01/19/2017 Pt Ngx7832 Hi intensity - 3.0-4.0 01/19/2017 Pt Gas5332 PT 28.3 seconds 01/05/2017 Pt Ebl5013 INR 2.6 01/05/2017 Pt Zkj3219 Low Intensity - 1.5-2.0 01/05/2017 Pt Pbg1244 Mod intensity - 2.0-3.0 01/05/2017 Pt Bmq7281 Hi intensity - 3.0-4.0 01/05/2017 Pt Dbu3395 PT 29.1 seconds 12/15/2016 Pt Jlw9370 INR 2.7 12/15/2016 Pt Rpg3796 Low Intensity - 1.5-2.0 12/15/2016 Pt Sbo8561 Mod intensity - 2.0-3.0 12/15/2016 Pt Cte5082 Hi intensity - 3.0-4.0 12/15/2016 Urine Culture Ucult Preliminary NO Growth Day 1 11/10/2016 Urine Culture Ucult Complete NO Growth Day 2 11/10/2016 Pt Gbw3128 PT 23.7 seconds 11/07/2016 Pt Gul7204 INR 2.1 11/07/2016 Pt Gas6513 Low Intensity - 1.5-2.0 11/07/2016 Pt Vjd6923 Mod intensity - 2.0-3.0 11/07/2016 Pt Pwu9367 Hi intensity - 3.0-4.0 11/07/2016 Pt Vkj2272 PT 27.1 seconds 10/13/2016 Pt Sub9273 INR 2.7 10/13/2016 Pt Hvz5122 Low Intensity - 1.5-2.0 10/13/2016 Pt Pug0677 Mod intensity - 2.0-3.0 10/13/2016 Pt Pvj2623 Hi intensity - 3.0-4.0 10/13/2016 Pt Kqt5500 PT 26.3 seconds 09/23/2016 Pt Vcl7549 INR 2.6 09/23/2016 Pt Pfk5227 Low Intensity - 1.5-2.0 09/23/2016 Pt Xpz3264 Mod intensity - 2.0-3.0 09/23/2016 Pt Ocz5312 Hi intensity - 3.0-4.0 09/23/2016 Pt Rha7148 PT 20.4 seconds 09/09/2016 Pt Frx2121 INR 1.8 09/09/2016 Pt Hmk3503 Low Intensity - 1.5-2.0 09/09/2016 Pt Brs4786 Mod intensity - 2.0-3.0 09/09/2016 Pt Eyd1719 Hi intensity - 3.0-4.0 09/09/2016 Pt Tnw4667 PT 24.1 seconds 08/26/2016 Pt Sig1750 INR 2.3 08/26/2016 Pt Dao5135 Low Intensity - 1.5-2.0 08/26/2016 Pt Euf7318 Mod intensity - 2.0-3.0 08/26/2016 Pt Gwp5864 Hi intensity - 3.0-4.0 08/26/2016 Pt Ltp7614 PT 26.1 seconds 08/12/2016 Pt Zto6831 INR 2.6 08/12/2016 Pt Cih3481 Low Intensity - 1.5-2.0 08/12/2016 Pt Ctk9675 Mod intensity - 2.0-3.0 08/12/2016 Pt Nuy7684 Hi intensity - 3.0-4.0 08/12/2016 Pt Tbx4999 PT 23.5 seconds 07/15/2016 Pt Irk9146 INR 2.2 07/15/2016 Pt Udi3624 Low Intensity - 1.5-2.0 07/15/2016 Pt Qfw7283 Mod intensity - 2.0-3.0 07/15/2016 Pt Knr5542 Hi intensity - 3.0-4.0 07/15/2016 Urine Culture Ucult Preliminary NO Growth Day 1 07/10/2016 Urine Culture Ucult Complete NO Growth Day 2 07/10/2016 Pt Joy0354 PT 27.9 seconds 06/30/2016 Pt Lap7836 INR 2.8 06/30/2016 Pt Huf1710 Low Intensity - 1.5-2.0 06/30/2016 Pt Hlx6051 Mod intensity - 2.0-3.0 06/30/2016 Pt Nyf7375 Hi intensity - 3.0-4.0 06/30/2016 Pt Hcs1421 PT 23.7 seconds 06/12/2016 Pt Fhu8956 INR 2.3 06/12/2016 Pt Mnj3685 Low Intensity - 1.5-2.0 06/12/2016 Pt Ecw0631 Mod intensity - 2.0-3.0 06/12/2016 Pt Ftm0060 Hi intensity - 3.0-4.0 06/12/2016 Pt Deo3401 PT 36.5 seconds 06/06/2016 Pt Ilw9149 INR 4.0 06/06/2016 Pt Unx9256 Low Intensity - 1.5-2.0 06/06/2016 Pt Spu4217 Mod intensity - 2.0-3.0 06/06/2016 Pt Djh5873 Hi intensity - 3.0-4.0 06/06/2016 Tibc Ord40 Iron 76 ug/dl 05/05/2016 Tibc Ord40 UIBC 210 ug/dL 05/05/2016 Tibc Ord40 TIBC 286 ug/dL 05/05/2016 Tibc Ord40 Fe-%Sat 26.6 % 05/05/2016 Pt Oti6189 PT 29.0 seconds 05/05/2016 Pt Klt7828 INR 2.9 05/05/2016 Pt Jkm6731 Low Intensity - 1.5-2.0 05/05/2016 Pt Con4313 Mod intensity - 2.0-3.0 05/05/2016 Pt Iih4155 Hi intensity - 3.0-4.0 05/05/2016 Ferritin Ord22 FERRITIN 32.7 ng/mL 05/05/2016 Pt Ees9663 PT 31.1 seconds 04/08/2016 Pt Gfy1324 INR 3.2 04/08/2016 Pt Loh6146 Low Intensity - 1.5-2.0 04/08/2016 Pt Vuc3685 Mod intensity - 2.0-3.0 04/08/2016 Pt Snh9737 Hi intensity - 3.0-4.0 04/08/2016 Cbc With [...] 32.4 pg 03/24/2016 Cbc With Differential Ord2 Rabun% 11.3 % 03/24/2016 Cbc With Differential Ord2 [...] 2.29 K/ul 03/24/2016 Cbc With Differential Ord2 Rabun ABS# 0.8 K/ul 03/24/2016 Cbc With Differential Ord2 Eos ABS# 0.5 K/ul 03/24/2016 Cbc With Differential Ord2 Baso ABS# 0.0 K/ul 03/24/2016 Pt Ggz5651 PT 17.3 seconds 03/24/2016 Pt Jyd3547 INR 1.5 03/24/2016 Pt Nqa1139 Low Intensity - 1.5-2.0 03/24/2016 Pt Mta6502 Mod intensity - 2.0-3.0 03/24/2016 Pt Tov9895 Hi intensity - 3.0-4.0 03/24/2016 Pt Olo9106 PT 17.8 seconds 03/12/2016 Pt Xpa0429 INR 1.5 03/12/2016 Pt Lol5595 Low Intensity - 1.5-2.0 03/12/2016 Pt Okp1847 Mod intensity - 2.0-3.0 03/12/2016 Pt Lht6226 Hi intensity - 3.0-4.0 03/12/2016 Urine Culture Ucult Preliminary NO Growth Day 1 02/29/2016 Urine Culture Ucult Complete NO Growth Day 2 02/29/2016 Lipid Ord30 CHOL 129 mg/dL 02/21/2016 Lipid Ord30 HDL 59.0 mg/dl 02/21/2016 Lipid Ord30 TRIG 90 mg/dL 02/21/2016 Lipid Ord30 LDL 52 mg/dL 02/21/2016 Lipid Ord30 C/HDL 2.2 Ratio 02/21/2016 Comp Metabolic Zim244 NA 136 mEq/L 02/21/2016 Comp Metabolic Dkg998 K 4.4 mEq/L 02/21/2016 Comp Metabolic Pup979 CL 102 mEq/L 02/21/2016 Comp Metabolic Unc620 CO2 29.0 mEq/L 02/21/2016 Comp Metabolic Qhz316 ANION GAP 9 02/21/2016 Comp Metabolic Wjc494 GLUCOSE 118 mg/dL 02/21/2016 Comp Metabolic Msz444 Creat 1.0 mg/dL 02/21/2016 Comp Metabolic Fkn360 eGFR 72 ml/min/1.73m2 02/21/2016 Comp Metabolic Dnm287 BUN 23 mg/dL 02/21/2016 Comp Metabolic Pzt060 B/C Ratio 22.1 Ratio 02/21/2016 Comp Metabolic Geh775 CALCIUM 9.9 mg/dL 02/21/2016 Comp Metabolic Khq459 ALK PHOS 57 U/L 02/21/2016 Comp Metabolic Mul485 AST(SGOT) 17 U/L 02/21/2016 Comp Metabolic Bsm117 ALT(SGPT) 19 U/L 02/21/2016 Comp Metabolic Pph149 BILI T 0.6 mg/dL 02/21/2016 Comp Metabolic Udq278 ALBUMIN 3.9 g/dL 02/21/2016 Comp Metabolic Wkt534 TPRO 6.9 g/dL 02/21/2016 Comp Metabolic Oaa047 GLOB 3.0 g/dL 02/21/2016 Comp Metabolic Cee275 A/G Ratio 1.3 Ratio 02/21/2016 Comp Metabolic Omn168 Osmo 277 mOsmo 02/21/2016 Pt Wdc4978 PT 19.8 seconds 02/21/2016 Pt Cob6639 INR 1.8 02/21/2016 Pt Lbi8512 Low Intensity - 1.5-2.0 02/21/2016 Pt Mty3147 Mod intensity - 2.0-3.0 02/21/2016 Pt Tin4368 Hi intensity - 3.0-4.0 02/21/2016 Pt Ydv4672 PT 24.1 seconds 01/15/2016 Pt Ser4947 INR 2.3 01/15/2016 Pt Vhi2677 Low Intensity - 1.5-2.0 01/15/2016 Pt Dth6572 Mod intensity - 2.0-3.0 01/15/2016 Pt Uqd2579 Hi intensity - 3.0-4.0 01/15/2016 Pt Avg7070 PT 26.5 seconds 01/03/2016 Pt Opt5747 INR 2.6 01/03/2016 Pt Wez0476 Low Intensity - 1.5-2.0 01/03/2016 Pt Rss0211 Mod intensity - 2.0-3.0 01/03/2016 Pt Cyo7481 Hi intensity - 3.0-4.0 01/03/2016 Pt Bmf1404 PT 15.3 seconds 11/30/2015 Pt Qaa3048 INR 1.3 11/30/2015 Pt Ngc5233 Low Intensity - 1.5-2.0 11/30/2015 Pt Vte8928 Mod intensity - 2.0-3.0 11/30/2015 Pt Qxr7817 Hi intensity - 3.0-4.0 11/30/2015 Review of [...] 04/12/2018 None Full Exam - General 1995 Eyes conjunctiva /eyelids Overall: cornea clear 04/12/2018 None Full Exam - General 1994 Eyes conjunctiva /eyelids Overall: eyelids normal 04/12/2018 None Full Exam - General 1994 Eyes pupils and irises Overall: pupils equal, round, reactive to light and accomodation 04/12/2018 None Full Exam - General 1995 Ears/Nose/Throat otoscopic exam External auditory canal: complete cerumen impaction 04/12/2018 None Full Exam - General 1995 Ears/Nose/Throat lips/teeth/gingiva Overall: benign lips 04/12/2018 None Full Exam - General 1995 Ears/Nose/Throat lips/teeth/gingiva Overall: normal dentition 04/12/2018 None Full Exam - General 1995 Ears/Nose/Throat oral cavity/pharynx/larynx Overall: oral mucosa clear 04/12/2018 None Full Exam - General 1995 Ears/Nose/Throat oral cavity/pharynx/larynx Overall: oropharyngeal mucosa clear 04/12/2018 None Full Exam - General 1995 Ears/Nose/Throat oral cavity/pharynx/larynx Overall: hypopharynx benign 04/12/2018 [...] clear 12/29/2017 None Full Exam - General 1995 Ears/Nose/Throat oral cavity/pharynx/larynx Overall: hypopharynx benign 12/29/2017 [...] Formatting Model/CDA Sections, Assigned to/Arabella Carballo CPT-4: [id number] 01/04/2018 URINALYSIS NONAUTO W/O SCOPE CPT-4: 59903 11/07/2016 URINALYSIS NONAUTO W/O SCOPE CPT-4: 96825 02/26/2016 ADMIN INFLUENZA VIRUS VAC CPT-4: G0008 01/03/2016 FLU VACC 4 ARIANNA 3 YRS PLUS IM SNOMED CT: [id number] CPT-4: 75097 01/03/2016 Vital Signs Date Vital 04/23/2018 Blood Pressure 1: 118/64 Code : 8480-6 BMI: 35.0 Code : 30650-3 Heart Rate 1 : 88 bpm Height: 5'4" SpO2: 96% Temperature: 36.3 (C) / 97.4 (F) Weight: 204 lbs 04/12/2018 Blood Pressure 1: 144/76 Code : 8480-6 BMI: 35.0 Code : 62589-1 Heart Rate 1 : 75 bpm Height: 5'4" SpO2: 98% Weight: 204 lbs 03/08/2018 Blood Pressure 1: 124/70 Code : 8480-6 Heart Rate 1: 84 bpm Height: 5'4" SpO2: 92% Weight: 03/02/2018 Blood Pressure 1: 138/76 Code : 8480-6 Heart Rate 1: 87 bpm Height: 5'4" SpO2: 98% Weight: 02/26/2018 Blood Pressure 1: 148/68 Code : 8480-6 BMI: 35.0 Code : 05263-0 Heart Rate 1 : 80 bpm Height: 5'4" SpO2: 97% Weight: 204 lbs 01/28/2018 Blood Pressure 1: 150/60 Code : 8480-6 Heart Rate 1: 91 bpm SpO2: 92% 12/29/2017 Blood Pressure 1: 144/62 Code : 8480-6 BMI: 34.7 Code : 05672-9 Heart Rate 1 : 73 bpm Height: 5'4" SpO2: 97% Weight: 202 lbs 09/29/2017 Blood Pressure 1: 132/80 Code : 8480-6 Heart Rate 1: 76 bpm SpO2: 97% Weight: 204 lbs 08/11/2017 Blood Pressure 1: 132/66 Code : 8480-6 BMI: 35.0 Code : 85642-8 Heart Rate 1 : 81 bpm Height: 5'4" SpO2: 96% Weight: 204 lbs 03/16/2017 Blood Pressure 1: 132/70 Code : 8480-6 BMI: 34.5 Code : 09503-5 Heart Rate 1 : 78 bpm Height: 5'4" SpO2: 98% Weight: 201 lbs 12/15/2016 Blood Pressure 1: 140/80 Code : 8480-6 BMI: 34.2 Code : 53951-4 Heart Rate 1 : 69 bpm Height: 5'4" SpO2: 98% Weight: 199 lbs 11/07/2016 Blood Pressure 1: 158/82 Code : 8480-6 BMI: 34.7 Code : 83951-7 Heart Rate 1 : 76 bpm Height: 5'4" SpO2: 98% Weight: 202 lbs 10/14/2016 Blood Pressure 1: 140/80 Code : 8480-6 BMI: 34.0 Code : 79139-4 Heart Rate 1 : 79 bpm Height: 5'4" SpO2: 96% Weight: 198 lbs 09/10/2016 Blood Pressure 1: 158/80 Code : 8480-6 BMI: 34.3 Code : 73262-3 Heart Rate 1 : 75 bpm Height: 5'4" SpO2: 98% Weight: 200 lbs 07/08/2016 Blood Pressure 1: 160/74 Code : 8480-6 BMI: 35.2 Code : 99754-1 Heart Rate 1 : 94 bpm Height: 5'4" SpO2: 97% Weight: 205 lbs 06/16/2016 Blood Pressure 1: 138/76 Code : 8480-6 BMI: 35.0 Code : 07581-2 Heart Rate 1 : 68 bpm Height: 5'4" SpO2: 98% Weight: 204 lbs 01/31/2016 Blood Pressure 1: 136/64 Code : 8480-6 BMI: 33.6 Code : 80297-9 Heart Rate 1 : 92 bpm Height: 5'4" SpO2: 98% Weight: 196 lbs 01/03/2016 Blood Pressure 1: 142/68 Code : 8480-6 BMI: 33.8 Code : 49378-8 Heart Rate 1 : 80 bpm Height: 5'4" SpO2: 97% Weight: 197 lbs 11/30/2015 Blood Pressure 1: 158/80 Code : 8480-6 Heart Rate 1: 83 bpm SpO2: 98% 11/21/2015 Blood Pressure 1: 172/80 Code : 8480-6 BMI: 32.8 Code : 60463-5 Heart Rate 1 : 87 bpm Height: [...] data Encounters Encounter Performer Location Codes Date ([id number]) [id number] EST. PATIENT, LEVEL III Diagnosis: Cough[ICD10: R05] Diagnosis: Acute upper respiratory infection, unspecified[ICD10: J06.9] Kelli Gallardo MD, [facility] CPT-4: 22937 04/23/2018 ([id number]) 22114 EST. 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 PATIENT, LEVEL II Diagnosis: Cellulitis of right lower limb[ICD10: L03.115] Kelli Gallardo MD, [facility] CPT-4: 69789 03/08/2018 ([id number]) Miscellaneous no charge Diagnosis: Cellulitis of right lower limb[ICD10: L03.115] Kelli Gallardo MD, [facility] CPT-4: 53017 03/02/2018 ([id number]) 87886 EST. PATIENT, LEVEL III Diagnosis: Cellulitis of right lower limb[ICD10: L03.115] Kelli Gallardo MD, [facility] CPT-4: 62735 02/26/2018 99437 EST. PATIENT, LEVEL III Diagnosis: Cellulitis of left lower limb[ICD10: L03.116] Octavia Gallardo MD, [facility] CPT-4: 88872 01/28/2018 ([id number]) 44776 EST. PATIENT, LEVEL III Diagnosis: Essential (primary) hypertension[ICD10: I10] Diagnosis: USP (current) use of anticoagulants[ICD10: Z79.01] Diagnosis: Nocturia[ICD10: R35.1] Pamela Gallarod MD, [facility] CPT-4: 73513 12/29/2017 ([id number]) 13346 EST. PATIENT, LEVEL IV Diagnosis: Essential (primary) hypertension[ICD10: I10] Diagnosis: Urge incontinence[ICD10: N39.41] Pamela Gallardo MD, [facility] CPT-4: 04279 09/29/2017 ([id number]) 94454 EST. 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 PATIENT, LEVEL IV Diagnosis: Essential (primary) hypertension[ICD10: I10] Diagnosis: Mixed hyperlipidemia[ICD10: E78.2] Diagnosis: USP (current) use of anticoagulants[ICD10: Z79.01] Pamela Gallardo MD, [facility] CPT-4: 31633 12/15/2016 ([id number]) 96259 EST. 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 PATIENT, LEVEL IV Diagnosis: Essential (primary) hypertension[ICD10: I10] Diagnosis: Mixed hyperlipidemia[ICD10: E78.2] Diagnosis: Gross hematuria[ICD10: R31.0] Pamela Gallardo MD [facility] CPT- 4: 68643 10/14/2016 ([id number]) 11215 EST. PATIENT, LEVEL IV Diagnosis: Essential (primary) hypertension[ICD10: I10] Diagnosis: USP (current) use of anticoagulants[ICD10: Z79.01] Diagnosis: Mixed hyperlipidemia[ICD10: E78.2] Pamela Gallardo MD [facility] CPT-4: 64954 09/10/2016 71715 EST. PATIENT, LEVEL III Diagnosis: Gross hematuria[ICD10: R31.0] Octavia Gallardo MD [facility] CPT-4 : 45201 07/08/2016 ([id number]) 84454 EST. PATIENT, LEVEL IV Diagnosis: Essential (primary) hypertension[ICD10: I10] Diagnosis: Mixed hyperlipidemia[ICD10: E78.2] Diagnosis: USP (current) use of anticoagulants[ICD10: Z79.01] Pamela Gallardo MD [facility] CPT-4: 81998 06/16/2016 ([id number]) 43707 EST. PATIENT, LEVEL IV Diagnosis: Essential (primary) hypertension[ICD10: I10] Diagnosis: Mixed hyperlipidemia[ICD10: E78.2] Pamela Gallardo MD [facility] CPT-4: 01424 01/31/2016 ([id number]) 64586 EST. PATIENT, LEVEL IV Diagnosis: Essential (primary) hypertension[ICD10: I10] Diagnosis: Mixed hyperlipidemia[ICD10: E78.2] Diagnosis: Encounter for immunization[ICD10: Z23] Pamela Gallardo MD [facility] CPT-4: 27940 01/03/2016 ([id number]) Miscellaneous no charge Diagnosis: Essential (primary) hypertension[ICD10: I10] Octavia Gallardo MD, [facility] CPT-4: 36918 11/30/2015 ([id number]) OFFICE VISIT, NEW - LEVEL 4 Diagnosis: Essential (primary) hypertension[ICD10: I10] Diagnosis: Mixed hyperlipidemia[ICD10: E78.2] Diagnosis: Impacted cerumen, bilateral[ICD10: H61.23] Pamela Gallardo MD, [facility] CPT-4: 02744 11/21/2015 Plan of Care Planned Activity Notes Codes Status Date Visit Plan: URI - Pt advised to increase fluids, vitamin C. Discussed natural and expected course of this diagnosis and need to alert me if symptoms do not follow expected course, or if any worse. RX sent to patient' s pharmacy. 04/23/2018 Appointment: Kelli Mccullough WPtel: [phone] (15 min) Moderate 04/23/2018 Patient Education: Patient [...] and 3.5. 04/12/2018 Appointment: Pamela Gallardo WPtel: [facility]9 [facility] (15 min) Moderate 04/12/2018 Patient Education: Patient Medication Summary Completed 04/12/2018 Visit Plan: Ulcer of right leg -healed-no further treatment indicated 03/08/2018 Appointment: Kelli Mccullough WPtel: [phone] (15 min) Moderate 03/08/2018 Patient Education: Patient Medication Summary Completed 03/08/2018 Visit Plan: Ulcer of leg -improved-continue wound care as directed-follow up in 1 week, sooner if needed 03/02/2018 Appointment: Kelli Mccullough WPtel: [phone] [phone] [place] (15 min) Moderate 03/02/2018 Patient Education: Patient Medication Summary Completed 03/02/2018 Visit Plan: Cellulitis - continue with oral antibiotics as previously directed, return to clinic as previously directed, call for acute change in symptoms, worsening redness, warmth, discharge. 02/26/2018 Appointment: Kelli Mccullough WPtel: [phone] [place] (15 min) Moderate 02/26/2018 Patient Education: Patient Medication Summary Completed 02/26/2018 Visit Plan: Cellulitis - pt is to follow up with his surgeon - continue with oral antibiotics as previously directed, return to clinic as previously directed, call for acute change in symptoms, worsening redness, warmth, discharge. 01/28/2018 Appointment: Octavia Zarate WPtel: [facility] (15 min) Moderate 01/28/2018 Patient Education: Patient [...] supportive care. 12/29/2017 Appointment: Pamela Gallardo WPtel: [facility] [place] (15 min) Moderate 12/29/2017 Patient Education: Patient Medication Summary Completed 12/29/2017 Appointment: Pamela Gallardo WPtel: [facility] Same Day appointments 12/16/2017 Visit Plan: Hypertension [...] for it to the pharmacy 09/29/2017 Appointment: Paulina Pamela WPtel: [phone] [facility] (15 min) Moderate 09/29/2017 Patient Education: Patient [...] good 08/11/2017 Appointment: Pamela Gallardo WPtel: [phone] [facility] (15 min) Moderate 08/11/2017 Patient Education: Patient Medication Summary Completed 08/11/2017 [phone] [place] (15 min) Moderate 08/06/2017 [facility]: [phone] (15 min) Moderate 08/04/2017 Visit Plan: [...] symptoms. 03/16/2017 Appointment: Pamela Gallardo WPtel: [phone] [facility] (15 min) Moderate 03/16/2017 Patient Education: Patient Medication Summary Completed 03/16/2017 Patient Education: Obesity Completed 03/16/2017 Appointment: Pamela Gallardo WPtel: [facility] [place] (15 min) Moderate 12/30/2016 Visit Plan: [...] today. 12/15/2016 Appointment: Pamela Gallardo WPtel: [phone] [facility] [place] (15 min) Moderate 12/15/2016 Patient Education: Patient Medication Summary Completed 12/15/2016 Visit Plan: Iron deficiency keysyi-tcvl-eoihiq bleeding- INR has been stable-continue multivitamin with iron daily Hematuria-3+ blood in urine-check PT/INR today-culture urine 11/07/2016 Appointment: Kelli Mccullough WPtel: [phone] [phone] (15 min) Moderate 11/07/2016 Patient Education: Patient [...] to medications. 10/14/2016 Appointment: Pamela Gallardo WPtel: [facility] (15 min) Moderate 10/14/2016 Patient Education: Patient Medication Summary Completed 10/14/2016 Patient Education: Obesity Completed 10/14/2016 [facility]ment: [phone] [place] (15 min) Moderate 10/09/2016 Visit [...] or concerns. 07/08/2016 Appointment: Octavia Zarate WPtel: [address] [place], [place] [address] (15 min) Moderate 07/08/2016 Patient Education: Patient [...] anticoagulation - continue with coumadin. 06/16/2016 Appointment: Paulina Pamela WPtel: [phone] [facility] (15 min) Moderate 06/16/2016 Patient Education: Patient Medication Summary Completed 06/16/2016 Patient Education: Obesity Completed 06/16/2016 [facility]ment: [phone] (15 min) Moderate 05/22/2016 Patient Education: [...] medications. 01/31/2016 App[facility]ment: [phone] (15 min) Moderate 01/31/2016 Patient Education: [...] medications. 01/03/2016 App[facility]ment: [phone] (15 min) Moderate 01/03/2016 Patient Education: [...] medications. 11/21/2015 App[facility]ment: [phone] [facility] 11/21/2015 Patient Education: Patient [...] medications. Chronic anticoagulation - continue with coumadin. increase the coumadin to 5mg on tuesdays, [...] it to the pharmacy . Iron deficiency hlwwew-dubl-aatsck bleeding-INR has been stable-continue multivitamin with iron [...]
--- OUTSIDE RECORDS SUMMARY | 2018-07-09 11:33 | XMS REPORT | CCD ---
Author Author [facility]ela [facility]ardo Organization [facility] Address [address] [place] [address] Phone Care Team Providers Care Pet Walker Name Role Phone PP Unavailable CCM Unavailable Summary Purpose Interface Exchange Insurance Providers Payer name Policy type / Coverage type Covered green party ID Effective Begin Date Effective End Date WPS Medicare Part B Medicare Part B [id number] Unknown [facility] Medicare Part B [id number] Unknown Family history Father Diagnosis Age At [...] Unknown Retired 11/21/[address]: 5001715 Former smoker Quit September 2014 11/21/[address]: 331182 Currently drinks alcohol 11/21/2015 Has the patient [...] ICD-9: 401.1 ICD-10: I10 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/2016 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 ICD-9: V58.61 ICD-10: [...] hypertension ICD-9: 401.1 ICD-10: I10 01/30/2016 Active retirement (current) use of anticoagulants ICD-9: V58.61 ICD-10: [...] Kenalog 40 mg/mL suspension for injection RxNorm: 6948746 Milliliter(s) Inj 04/23/2018 04/23/2018 Inactive Keflex 500 mg capsule RxNorm: 884888 1 Capsule(s) PO TID 201804/29/2018 Inactive Keflex 500 mg capsule RxNorm: 812067 1 Capsule(s) PO TID 201703/04/2018 Inactive Bactrim DS 800 mg-160 mg tablet RxNorm: 227379 1 Tablet(s) PO BID 01/28/2018 02/06/2018 Inactive warfarin 5 mg tablet RxNorm: 105069 1 Tablet(s) PO UD on Thursday - goal for INR is 2.3 12/25/2017 08/21/2018 Active warfarin 7.5 mg tablet RxNorm: 050804 1 Tablet(s) PO daily except Sat take 5mg 12/25/2017 12/19/2018 Active Lovenox 40 mg/0.4 mL subcutaneous syringe RxNorm: 747540 1 Milliliter(s) SQ BID 10/14/2017 No Stop Date Active Holding coumadin x 5 days. Start the day after stopping coumadin for procedure. Hold the day of surgery. The day after surgery resume BID x 4 days. Vesicare 10 mg tablet RxNorm: 317140 1 Tablet(s) PO QPM 2017 No Stop Date Active lisinopril 20 mg tablet RxNorm: 589732 TAKE ONE TABLET BY MOUTH ONCE DAILY 06/23/2017 No Stop Date Active warfarin 5 mg tablet RxNorm: 401646 1 Tablet(s) PO UD on Thursday and - goal for INR is 2.3 02/11/2017 10/08/2017 Inactive lisinopril 20 mg tablet RxNorm: 470299 1 Tablet(s) PO daily 06/22/2017 Inactive warfarin 7.5 mg tablet RxNorm: 345567 1 Tablet(s) PO daily except Thu10/14/2016 10/08/2017 Inactive warfarin 5 mg tablet RxNorm: 741327 1 Tablet(s) PO UD on Thursday and - goal for INR is 2.3 10/14/2016 02/10/2017 Inactive warfarin 5 mg tablet RxNorm: 784694 1 Tablet(s) PO UD on Thursday10/14/2016 10/13/2016 Inactive warfarin 7.5 mg tablet RxNorm: 830093 1 Tablet(s) PO daily 10/13/2016 Inactive warfarin 7.5 mg tablet RxNorm: 380841 1 Tablet(s) PO daily 03/201708/17/2016 Inactive Norvasc 5 mg tablet RxNorm: 339872 1 Tablet(s) PO QPM 201512/14/2016 Inactive iron 65 mg RxNorm: 1 PO daily No Start Date Active aspirin 81 mg chewable tablet RxNorm: 835200 1 Tablet(s) PO daily No Start Date Active amlodipine 2.5 mg tablet RxNorm: 586389 1 Tablet(s) PO daily No Start Date Active PreserVision AREDS 2 oral RxNorm: 7244691 oral No Start Date Active prednisone 5 mg tablet RxNorm: 111617 1 Tablet(s) PO BID No Start Date Active Citracal + D3 (calcium phosphate) oral RxNorm: 4794259 oral No Start Date Active Centrum Silver tablet RxNorm: 1 Tablet(s) PO daily No Start Date Active Zytiga 500 mg tablet RxNorm: 5494254 2 Tablet(s) PO daily No Start Date Active Colace 100 mg capsule RxNorm: 9003850 1-2 Capsule(s) PO as needed constipation No Start Date Active Oriana-C ER 1,000 mg-200 mg tablet,extended release RxNorm: 834520 1 Tablet(s) PO BID No Start Date Active carvedilol 6.25 mg tablet RxNorm: 713217 1 Tablet(s) PO BID No Start Date Active Imodium A-D 2 mg tablet RxNorm: 092156 1 Tablet(s) PO as needed diarrhea No Start Date Active atorvastatin 20 mg tablet RxNorm: 017152 1 Tablet(s) PO daily No Start Date Active carvedilol 6.25 mg tablet RxNorm: 886820 1 Tablet(s) PO BID No Start Date Active Lupron Depot intramuscular RxNorm: 047772 intramuscular No Start Date Active Lovenox 40 mg/0.4 mL subcutaneous syringe RxNorm: 320665 1 Milliliter(s) SQ BID No Start Date 10/13/2017 Inactive Holding coumadin x 5 days. Start the day after stopping coumadin for procedure. Hold the day of surgery. The day after surgery resume BID x 4 days. warfarin 5 mg tablet RxNorm: 176689 1 Tablet(s) PO every other day No Start Date 10/13/2016 Inactive warfarin 7.5 mg tablet RxNorm: 898721 1 Tablet(s) PO every other day No Start Date 07/15/2016 Inactive lisinopril 20 mg tablet RxNorm: 078823 1 Tablet(s) PO daily No Start Date 12/28/2016 Inactive clopidogrel 75 mg tablet RxNorm: 695946 1 Tablet(s) PO daily No Start Date 03/10/2016 Inactive Medication Administered Medication Codes Instructions Start Date Status Kenalog 40 mg/mL suspension for injection RxNorm: 5527322 Milliliter 04/23/2018 No longer Active Immunizations Vaccine Codes Date Status Influenza CVX: 141 01/04/2018 completed Influenza CVX: 141 01/03/2016 completed Assessments Condition Codes Effective Dates Acute upper respiratory infection, unspecified ICD-10: J06.9 ICD-9: 465.9 04/23/2018 Cough ICD-10: R05 ICD-9: 786.2 04/23/2018 Personal history of malignant neoplasm of prostate ICD-10: Z85.46 ICD-9: V10.46 04/12/2018 Malignant neoplasm of prostate ICD-10: C61 ICD-9: 185 04/12/2018 retirement (current) use of anticoagulants ICD-10: Z79.01 ICD-9: [...] Code Item Item Code Result Date Pt Htr2220 PT 25.1 seconds 05/06/2018 Pt Flq9838 INR 2.3 05/06/2018 Pt Dxx0648 Low Intensity - 1.5-2.0 05/06/2018 Pt Daa3148 Mod intensity - 2.0-3.0 05/06/2018 Pt Rcu9285 Hi intensity - 3.0-4.0 05/06/2018 Pt Jej4203 PT 28.0 seconds 04/12/2018 Pt Toq0985 INR 2.7 04/12/2018 Pt Bku3660 Low Intensity - 1.5-2.0 04/12/2018 Pt Ckc8701 Mod intensity - 2.0-3.0 04/12/2018 Pt Pnf2811 Hi intensity - 3.0-4.0 04/12/2018 Pt Ker5440 PT 24.4 seconds 03/03/2018 Pt Bjy1921 INR 2.2 03/03/2018 Pt Low Intensity - 1.5-2.0 03/03/2018 Pt Msj3536 Mod intensity - 2.0-3.0 03/03/2018 Pt Bpw0441 Hi intensity - 3.0-4.0 03/03/2018 Pt Mko4865 PT 28.9 seconds 02/15/2018 Pt Dzg5168 INR 2.8 02/15/2018 Pt Hzc9832 Low Intensity - 1.5-2.0 02/15/2018 Pt Qmc5284 Mod intensity - 2.0-3.0 02/15/2018 Pt Vza2780 Hi intensity - 3.0-4.0 02/15/2018 Pt Qyx7258 PT 27.2 seconds 02/02/2018 Pt Ejl6890 INR 2.6 02/02/2018 Pt Zjk9003 Low Intensity - 1.5-2.0 02/02/2018 Pt Piy5997 Mod intensity - 2.0-3.0 02/02/2018 Pt Isw9401 Hi intensity - 3.0-4.0 02/02/2018 Pt Pvw7489 PT 18.2 seconds 01/28/2018 Pt Jvl1300 INR 1.6 01/28/2018 Pt Hvr3262 Low Intensity - 1.5-2.0 01/28/2018 Pt Lqh4469 Mod intensity - 2.0-3.0 01/28/2018 Pt Bes8220 Hi intensity - 3.0-4.0 01/28/2018 Pt Xns2931 PT 19.8 seconds 01/22/2018 Pt Cyl5382 INR 1.7 01/22/2018 Pt Pqz4401 Low Intensity - 1.5-2.0 01/22/2018 Pt Uwx4161 Mod intensity - 2.0-3.0 01/22/2018 Pt Xor8975 Hi intensity - 3.0-4.0 01/22/2018 Pt Ait7960 PT 38.3 seconds 01/15/2018 Pt Fgf4726 INR 3.8 01/15/2018 Pt Yhu9662 Low Intensity - 1.5-2.0 01/15/2018 Pt Kzy5181 Mod intensity - 2.0-3.0 01/15/2018 Pt Wdk0490 Hi intensity - 3.0-4.0 01/15/2018 Pt Jpy4584 PT 27.1 seconds 01/05/2018 Pt Iws6810 INR 2.5 01/05/2018 Pt Jmh3411 Low Intensity - 1.5-2.0 01/05/2018 Pt Uwc9556 Mod intensity - 2.0-3.0 01/05/2018 Pt Emh1199 Hi intensity - 3.0-4.0 01/05/2018 Pt Kcg9988 PT 27.2 seconds 12/25/2017 Pt Zjc6541 INR 2.5 12/25/2017 Pt Oyl2716 Low Intensity - 1.5-2.0 12/25/2017 Pt Afo1691 Mod intensity - 2.0-3.0 12/25/2017 Pt Pea3804 Hi intensity - 3.0-4.0 12/25/2017 Pt Snj2895 PT 22.2 seconds 12/09/2017 Pt Jyt4026 INR 2.0 12/09/2017 Pt Lnu4156 Low Intensity - 1.5-2.0 12/09/2017 Pt Sdo3768 Mod intensity - 2.0-3.0 12/09/2017 Pt Hdr4482 Hi intensity - 3.0-4.0 12/09/2017 Pt Hdy3173 PT 20.5 seconds 11/27/2017 Pt Coh1212 INR 1.8 11/27/2017 Pt Zam4575 Low Intensity - 1.5-2.0 11/27/2017 Pt Ktf1334 Mod intensity - 2.0-3.0 11/27/2017 Pt Rwn3534 Hi intensity - 3.0-4.0 11/27/2017 Pt Bhf0870 PT 16.8 seconds 11/23/2017 Pt Jfi0077 INR 1.4 11/23/2017 Pt Nso4474 Low Intensity - 1.5-2.0 11/23/2017 Pt Ona6810 Mod intensity - 2.0-3.0 11/23/2017 Pt Zeb4311 Hi intensity - 3.0-4.0 11/23/2017 Pt Lnq8900 PT 13.4 seconds 11/20/2017 Pt Mwm5033 INR 1.1 11/20/2017 Pt Fft6690 Low Intensity - 1.5-2.0 11/20/2017 Pt Ykh5335 Mod intensity - 2.0-3.0 11/20/2017 Pt Iys4232 Hi intensity - 3.0-4.0 11/20/2017 Pt Sme4348 PT 29.3 seconds 09/22/2017 Pt Prm0795 INR 2.7 09/22/2017 Pt Sei3682 Low Intensity - 1.5-2.0 09/22/2017 Pt Twx1120 Mod intensity - 2.0-3.0 09/22/2017 Pt Uhc6352 Hi intensity - 3.0-4.0 09/22/2017 Pt Vpa3725 PT 24.6 seconds 08/27/2017 Pt Nxg6899 INR 2.2 08/27/2017 Pt Lyn5907 Low Intensity - 1.5-2.0 08/27/2017 Pt Vuz4778 Mod intensity - 2.0-3.0 08/27/2017 Pt Jlz3281 Hi intensity - 3.0-4.0 08/27/2017 Pt Jgk6260 PT 24.9 seconds 08/03/2017 Pt Kbq0774 INR 2.3 08/03/2017 Pt Mbk0388 Low Intensity - 1.5-2.0 08/03/2017 Pt Qmy2206 Mod intensity - 2.0-3.0 08/03/2017 Pt Odk8918 Hi intensity - 3.0-4.0 08/03/2017 Pt Pse3981 PT 24.4 seconds 06/17/2017 Pt Wzb4571 INR 2.2 06/17/2017 Pt Aiw4492 Low Intensity - 1.5-2.0 06/17/2017 Pt Okc7374 Mod intensity - 2.0-3.0 06/17/2017 Pt Vva8484 Hi intensity - 3.0-4.0 06/17/2017 Pt Lqx2054 PT 26.8 seconds 06/01/2017 Pt Pdx3279 INR 2.5 06/01/2017 Pt Znb3882 Low Intensity - 1.5-2.0 06/01/2017 Pt Ljy0151 Mod intensity - 2.0-3.0 06/01/2017 Pt Upn8725 Hi intensity - 3.0-4.0 06/01/2017 Pt Vgi9263 PT 18.8 seconds 05/18/2017 Pt Nyl0712 INR 1.6 05/18/2017 Pt Fqb5638 Low Intensity - 1.5-2.0 05/18/2017 Pt Ljz9255 Mod intensity - 2.0-3.0 05/18/2017 Pt Hlq9612 Hi intensity - 3.0-4.0 05/18/2017 Pt Hqd5159 PT 18.6 seconds 04/27/2017 Pt Mcf7517 INR 1.6 04/27/2017 Pt Xge8163 Low Intensity - 1.5-2.0 04/27/2017 Pt Drc4873 Mod intensity - 2.0-3.0 04/27/2017 Pt Upf7015 Hi intensity - 3.0-4.0 04/27/2017 Pt Oyp2242 PT 26.1 seconds 04/13/2017 Pt Vfj8114 INR 2.4 04/13/2017 Pt Ioe2674 Low Intensity - 1.5-2.0 04/13/2017 Pt Xdk7747 Mod intensity - 2.0-3.0 04/13/2017 Pt Fnz5223 Hi intensity - 3.0-4.0 04/13/2017 Lipid Ord30 CHOL 115 mg/dL 03/17/2017 Lipid Ord30 HDL 54.0 mg/dl 03/17/2017 Lipid Ord30 TRIG 94 mg/dL 03/17/2017 Lipid Ord30 LDL 42 mg/dL 03/17/2017 Lipid Ord30 C/HDL 2.1 Ratio 03/17/2017 Comp Metabolic Ccy606 NA 140 mEq/L 03/17/2017 Comp Metabolic Dyh665 K 4.4 mEq/L 03/17/2017 Comp Metabolic Squ929 CL 104 mEq/L 03/17/2017 Comp Metabolic Iuy189 CO2 30.0 mEq/L 03/17/2017 Comp Metabolic Bef631 ANION GAP 10 03/17/2017 Comp Metabolic Fzq723 GLUCOSE 122 mg/dL 03/17/2017 Comp Metabolic Gza978 Creat 0.9 mg/dL 03/17/2017 Comp Metabolic Ivh460 eGFR 82 ml/min/1.73m2 03/17/2017 Comp Metabolic Nlc098 BUN 22 mg/dL 03/17/2017 Comp Metabolic Pbn632 B/C Ratio 23.7 Ratio 03/17/2017 Comp Metabolic Bbc280 CALCIUM 10.3 mg/dL 03/17/2017 Comp Metabolic Hgo223 ALK PHOS 62 U/L 03/17/2017 Comp Metabolic Ohr633 AST(SGOT) 19 U/L 03/17/2017 Comp Metabolic Hmv654 ALT(SGPT) 21 U/L 03/17/2017 Comp Metabolic Viv062 BILI T 0.5 mg/dL 03/17/2017 Comp Metabolic Mgg286 ALBUMIN 4.1 g/dL 03/17/2017 Comp Metabolic Azt660 TPRO 6.9 g/dL 03/17/2017 Comp Metabolic Mqw530 GLOB 2.8 g/dL 03/17/2017 Comp Metabolic Yyr197 A/G Ratio 1.5 Ratio 03/17/2017 Comp Metabolic Hmk491 Osmo 284 mOsmo 03/17/2017 Comp Metabolic Het697 NA 140 mEq/L 03/17/2017 Comp Metabolic Cly377 K 4.4 mEq/L 03/17/2017 Comp Metabolic Vot276 CL 104 mEq/L 03/17/2017 Comp Metabolic Wyy321 CO2 30.0 mEq/L 03/17/2017 Comp Metabolic Wkb352 ANION GAP 10 03/17/2017 Comp Metabolic Hwg311 GLUCOSE 122 mg/dL 03/17/2017 Comp Metabolic Sye555 Creat 0.9 mg/dL 03/17/2017 Comp Metabolic Qvb167 eGFR 82 ml/min/1.73m2 03/17/2017 Comp Metabolic Tpv499 BUN 22 mg/dL 03/17/2017 Comp Metabolic Fzg607 B/C Ratio 23.7 Ratio 03/17/2017 Comp Metabolic Zzg430 CALCIUM 10.3 mg/dL 03/17/2017 Comp Metabolic Thi221 ALK PHOS 62 U/L 03/17/2017 Comp Metabolic Mdt907 AST(SGOT) 19 U/L 03/17/2017 Comp Metabolic Wcc785 ALT(SGPT) 21 U/L 03/17/2017 Comp Metabolic Qnu933 BILI T 0.5 mg/dL 03/17/2017 Comp Metabolic Ife334 ALBUMIN 4.1 g/dL 03/17/2017 Comp Metabolic Tak731 TPRO 6.9 g/dL 03/17/2017 Comp Metabolic Zzt394 GLOB 2.8 g/dL 03/17/2017 Comp Metabolic Xam898 A/G Ratio 1.5 Ratio 03/17/2017 Comp Metabolic Gqa027 Osmo 284 mOsmo 03/17/2017 Lipid Ord30 CHOL 115 mg/dL 03/17/2017 Lipid Ord30 HDL 54.0 mg/dl 03/17/2017 Lipid Ord30 TRIG 94 mg/dL 03/17/2017 Lipid Ord30 LDL 42 mg/dL 03/17/2017 Lipid Ord30 C/HDL 2.1 Ratio 03/17/2017 Pt Lzz0243 PT 23.7 seconds 03/12/2017 Pt Hsc5038 INR 2.1 03/12/2017 Pt Gyt1575 Low Intensity - 1.5-2.0 03/12/2017 Pt Elx2113 Mod intensity - 2.0-3.0 03/12/2017 Pt Tsa9096 Hi intensity - 3.0-4.0 03/12/2017 Pt Gkl3461 PT 21.3 seconds 02/10/2017 Pt Zln2187 INR 1.9 02/10/2017 Pt Blf5632 Low Intensity - 1.5-2.0 02/10/2017 Pt Vne6273 Mod intensity - 2.0-3.0 02/10/2017 Pt Rdw8821 Hi intensity - 3.0-4.0 02/10/2017 Pt Qxf6583 PT 21.4 seconds 01/27/2017 Pt Zgg2646 INR 1.9 01/27/2017 Pt Djx6934 Low Intensity - 1.5-2.0 01/27/2017 Pt Asi3713 Mod intensity - 2.0-3.0 01/27/2017 Pt Nmq2793 Hi intensity - 3.0-4.0 01/27/2017 Pt Fmi4479 PT 22.0 seconds 01/19/2017 Pt Bcr2044 INR 1.9 01/19/2017 Pt Qfi2434 Low Intensity - 1.5-2.0 01/19/2017 Pt Rbo4399 Mod intensity - 2.0-3.0 01/19/2017 Pt Uti9486 Hi intensity - 3.0-4.0 01/19/2017 Pt Yax7961 PT 28.3 seconds 01/05/2017 Pt Tbj5806 INR 2.6 01/05/2017 Pt Bia2763 Low Intensity - 1.5-2.0 01/05/2017 Pt Pke4509 Mod intensity - 2.0-3.0 01/05/2017 Pt Dch6639 Hi intensity - 3.0-4.0 01/05/2017 Pt Exp2401 PT 29.1 seconds 12/15/2016 Pt Aoc2525 INR 2.7 12/15/2016 Pt Swv1924 Low Intensity - 1.5-2.0 12/15/2016 Pt Rye3854 Mod intensity - 2.0-3.0 12/15/2016 Pt Yty5274 Hi intensity - 3.0-4.0 12/15/2016 Urine Culture Ucult Preliminary NO Growth Day 1 11/10/2016 Urine Culture Ucult Complete NO Growth Day 2 11/10/2016 Pt Xyx3376 PT 23.7 seconds 11/07/2016 Pt Vva0355 INR 2.1 11/07/2016 Pt Hdk0458 Low Intensity - 1.5-2.0 11/07/2016 Pt Upz0917 Mod intensity - 2.0-3.0 11/07/2016 Pt Gzj4384 Hi intensity - 3.0-4.0 11/07/2016 Pt Qqm5506 PT 27.1 seconds 10/13/2016 Pt Zxf5737 INR 2.7 10/13/2016 Pt Get0849 Low Intensity - 1.5-2.0 10/13/2016 Pt Lvn2042 Mod intensity - 2.0-3.0 10/13/2016 Pt Vbu0419 Hi intensity - 3.0-4.0 10/13/2016 Pt Doi2332 PT 26.3 seconds 09/23/2016 Pt Ame2734 INR 2.6 09/23/2016 Pt Cta7857 Low Intensity - 1.5-2.0 09/23/2016 Pt Azt2888 Mod intensity - 2.0-3.0 09/23/2016 Pt Hcp6571 Hi intensity - 3.0-4.0 09/23/2016 Pt Bml7919 PT 20.4 seconds 09/09/2016 Pt Xfb1434 INR 1.8 09/09/2016 Pt Frc8067 Low Intensity - 1.5-2.0 09/09/2016 Pt Esl6179 Mod intensity - 2.0-3.0 09/09/2016 Pt Jxb9736 Hi intensity - 3.0-4.0 09/09/2016 Pt Kal8453 PT 24.1 seconds 08/26/2016 Pt Upu8548 INR 2.3 08/26/2016 Pt Tin7413 Low Intensity - 1.5-2.0 08/26/2016 Pt Dbd7998 Mod intensity - 2.0-3.0 08/26/2016 Pt Qpd8801 Hi intensity - 3.0-4.0 08/26/2016 Pt Gis3520 PT 26.1 seconds 08/12/2016 Pt Hqp9868 INR 2.6 08/12/2016 Pt Rfm7644 Low Intensity - 1.5-2.0 08/12/2016 Pt Ccn2160 Mod intensity - 2.0-3.0 08/12/2016 Pt Yrw5614 Hi intensity - 3.0-4.0 08/12/2016 Pt Rnw4440 PT 23.5 seconds 07/15/2016 Pt Wui1878 INR 2.2 07/15/2016 Pt Dks6059 Low Intensity - 1.5-2.0 07/15/2016 Pt Zpp8458 Mod intensity - 2.0-3.0 07/15/2016 Pt Ewe2689 Hi intensity - 3.0-4.0 07/15/2016 Urine Culture Ucult Preliminary NO Growth Day 1 07/10/2016 Urine Culture Ucult Complete NO Growth Day 2 07/10/2016 Pt Qjb9416 PT 27.9 seconds 06/30/2016 Pt Qui9691 INR 2.8 06/30/2016 Pt Igy2318 Low Intensity - 1.5-2.0 06/30/2016 Pt Lal5069 Mod intensity - 2.0-3.0 06/30/2016 Pt Wdz8074 Hi intensity - 3.0-4.0 06/30/2016 Pt Gxw0843 PT 23.7 seconds 06/12/2016 Pt Efo8455 INR 2.3 06/12/2016 Pt Lwo8592 Low Intensity - 1.5-2.0 06/12/2016 Pt Uju6922 Mod intensity - 2.0-3.0 06/12/2016 Pt Wtn6623 Hi intensity - 3.0-4.0 06/12/2016 Pt Drd8918 PT 36.5 seconds 06/06/2016 Pt Dbs1629 INR 4.0 06/06/2016 Pt Gpy2286 Low Intensity - 1.5-2.0 06/06/2016 Pt Grq9257 Mod intensity - 2.0-3.0 06/06/2016 Pt Poq3617 Hi intensity - 3.0-4.0 06/06/2016 Pt Ezt2778 PT 29.0 seconds 05/05/2016 Pt Nng7524 INR 2.9 05/05/2016 Pt Cog5401 Low Intensity - 1.5-2.0 05/05/2016 Pt Saj6891 Mod intensity - 2.0-3.0 05/05/2016 Pt Tae9551 Hi intensity - 3.0-4.0 05/05/2016 Tibc Ord40 Iron 76 ug/dl 05/05/2016 Tibc Ord40 UIBC 210 ug/dL 05/05/2016 Tibc Ord40 TIBC 286 ug/dL 05/05/2016 Tibc Ord40 Fe-%Sat 26.6 % 05/05/2016 Ferritin Ord22 FERRITIN 32.7 ng/mL 05/05/2016 Pt Kkq1223 PT 31.1 seconds 04/08/2016 Pt Vhi5591 INR 3.2 04/08/2016 Pt Wdy6419 Low Intensity - 1.5-2.0 04/08/2016 Pt Nvi2568 Mod intensity - 2.0-3.0 04/08/2016 Pt Kxk7219 Hi intensity - 3.0-4.0 04/08/2016 Cbc With [...] 32.4 pg 03/24/2016 Cbc With Differential Ord2 Gilliam% 11.3 % 03/24/2016 Cbc With Differential Ord2 MCHC 33.9 pg 03/24/2016 Cbc With Differential Ord2 Eos% 8.1 % 03/24/2016 Cbc With Differential Ord2 Baso% 0.6 % 03/24/2016 Cbc With Differential Ord2 PLT 279 K/ul 03/24/2016 Cbc With Differential Ord2 RDW 14.3 % 03/24/2016 Cbc With Differential Ord2 Neut ABS# 3.02 K/ul 03/24/2016 Cbc With Differential Ord2 Lymph ABS# 2.29 K/ul 03/24/2016 Cbc With Differential Ord2 Gilliam ABS# 0.8 K/ul 03/24/2016 Cbc With Differential Ord2 Eos ABS# 0.5 K/ul 03/24/2016 Cbc With Differential Ord2 Baso ABS# 0.0 K/ul 03/24/2016 Pt Sqn3716 PT 17.3 seconds 03/24/2016 Pt Pys4958 INR 1.5 03/24/2016 Pt Jfc9677 Low Intensity - 1.5-2.0 03/24/2016 Pt Mww4241 Mod intensity - 2.0-3.0 03/24/2016 Pt Uve3636 Hi intensity - 3.0-4.0 03/24/2016 Pt Lsz1073 PT 17.8 seconds 03/12/2016 Pt Cgi2171 INR 1.5 03/12/2016 Pt Paf2454 Low Intensity - 1.5-2.0 03/12/2016 Pt Jvu2637 Mod intensity - 2.0-3.0 03/12/2016 Pt Qnn1133 Hi intensity - 3.0-4.0 03/12/2016 Urine Culture Ucult Complete NO Growth Day 2 02/29/2016 Urine Culture Ucult Preliminary NO Growth Day 1 02/29/2016 Comp Metabolic Vse881 NA 136 mEq/L 02/21/2016 Comp Metabolic Ywn223 K 4.4 mEq/L 02/21/2016 Comp Metabolic Tlt700 CL 102 mEq/L 02/21/2016 Comp Metabolic Zqt587 CO2 29.0 mEq/L 02/21/2016 Comp Metabolic Hnd335 ANION GAP 9 02/21/2016 Comp Metabolic Qmk699 GLUCOSE 118 mg/dL 02/21/2016 Comp Metabolic Sev117 Creat 1.0 mg/dL 02/21/2016 Comp Metabolic Ron066 eGFR 72 ml/min/1.73m2 02/21/2016 Comp Metabolic Las797 BUN 23 mg/dL 02/21/2016 Comp Metabolic Zrg846 B/C Ratio 22.1 Ratio 02/21/2016 Comp Metabolic Nim037 CALCIUM 9.9 mg/dL 02/21/2016 Comp Metabolic Jyd626 ALK PHOS 57 U/L 02/21/2016 Comp Metabolic Vdn203 AST(SGOT) 17 U/L 02/21/2016 Comp Metabolic Dtl992 ALT(SGPT) 19 U/L 02/21/2016 Comp Metabolic Pnv138 BILI T 0.6 mg/dL 02/21/2016 Comp Metabolic Orn686 ALBUMIN 3.9 g/dL 02/21/2016 Comp Metabolic Uuq959 TPRO 6.9 g/dL 02/21/2016 Comp Metabolic Ksk961 GLOB 3.0 g/dL 02/21/2016 Comp Metabolic Xse966 A/G Ratio 1.3 Ratio 02/21/2016 Comp Metabolic Cyt913 Osmo 277 mOsmo 02/21/2016 Lipid Ord30 CHOL 129 mg/dL 02/21/2016 Lipid Ord30 HDL 59.0 mg/dl 02/21/2016 Lipid Ord30 TRIG 90 mg/dL 02/21/2016 Lipid Ord30 LDL 52 mg/dL 02/21/2016 Lipid Ord30 C/HDL 2.2 Ratio 02/21/2016 Pt Osc3915 PT 19.8 seconds 02/21/2016 Pt Ulu3695 INR 1.8 02/21/2016 Pt Mvy4715 Low Intensity - 1.5-2.0 02/21/2016 Pt Ajp6513 Mod intensity - 2.0-3.0 02/21/2016 Pt Mby7598 Hi intensity - 3.0-4.0 02/21/2016 Pt Dur7622 PT 24.1 seconds 01/15/2016 Pt Mbm2197 INR 2.3 01/15/2016 Pt Wdr5580 Low Intensity - 1.5-2.0 01/15/2016 Pt Pji1876 Mod intensity - 2.0-3.0 01/15/2016 Pt Lxa8862 Hi intensity - 3.0-4.0 01/15/2016 Pt Uht8248 PT 26.5 seconds 01/03/2016 Pt Eaq5144 INR 2.6 01/03/2016 Pt Zjq3582 Low Intensity - 1.5-2.0 01/03/2016 Pt Drb1593 Mod intensity - 2.0-3.0 01/03/2016 Pt Eny3377 Hi intensity - 3.0-4.0 01/03/2016 Pt Dnd3765 PT 15.3 seconds 11/30/2015 Pt Qzj8195 INR 1.3 11/30/2015 Pt Rgy4595 Low Intensity - 1.5-2.0 11/30/2015 Pt Ivt4858 Mod intensity - 2.0-3.0 11/30/2015 Pt Tft7891 Hi intensity - 3.0-4.0 11/30/2015 Review of [...] Formatting Model/CDA Sections, Assigned to/Arabella Carballo CPT-4: 38451Rhznebp 01/04/2018 URINALYSIS NONAUTO W/O SCOPE CPT-4: 14165 11/07/2016 URINALYSIS NONAUTO W/O SCOPE CPT-4: 56733 02/26/2016 ADMIN INFLUENZA VIRUS VAC CPT-4: G0008 01/03/2016 FLU VACC 4 ARIANNA 3 YRS PLUS IM SNOMED CT: [id number] CPT-4: 57661 01/03/2016 Vital Signs Date Vital 04/23/2018 Blood Pressure 1: 118/64 Code : 8480-6 BMI: 35.0 Code : 10284-7 Heart Rate 1 : 88 bpm Height: 5'4" SpO2: 96% Temperature: 36.3 (C) / 97.4 (F) Weight: 204 lbs 04/12/2018 Blood Pressure 1: 144/76 Code : 8480-6 BMI: 35.0 Code : 81158-0 Heart Rate 1 : 75 bpm Height: 5'4" SpO2: 98% Weight: 204 lbs 03/08/2018 Blood Pressure 1: 124/70 Code : 8480-6 Heart Rate 1: 84 bpm Height: 5'4" SpO2: 92% Weight: 03/02/2018 Blood Pressure 1: 138/76 Code : 8480-6 Heart Rate 1: 87 bpm Height: 5'4" SpO2: 98% Weight: 02/26/2018 Blood Pressure 1: 148/68 Code : 8480-6 BMI: 35.0 Code : 96961-4 Heart Rate 1 : 80 bpm Height: 5'4" SpO2: 97% Weight: 204 lbs 01/28/2018 Blood Pressure 1: 150/60 Code : 8480-6 Heart Rate 1: 91 bpm SpO2: 92% 12/29/2017 Blood Pressure 1: 144/62 Code : 8480-6 BMI: 34.7 Code : 03556-1 Heart Rate 1 : 73 bpm Height: 5'4" SpO2: 97% Weight: 202 lbs 09/29/2017 Blood Pressure 1: 132/80 Code : 8480-6 Heart Rate 1: 76 bpm SpO2: 97% Weight: 204 lbs 08/11/2017 Blood Pressure 1: 132/66 Code : 8480-6 BMI: 35.0 Code : 67699-0 Heart Rate 1 : 81 bpm Height: 5'4" SpO2: 96% Weight: 204 lbs 03/16/2017 Blood Pressure 1: 132/70 Code : 8480-6 BMI: 34.5 Code : 22606-0 Heart Rate 1 : 78 bpm Height: 5'4" SpO2: 98% Weight: 201 lbs 12/15/2016 Blood Pressure 1: 140/80 Code : 8480-6 BMI: 34.2 Code : 37430-6 Heart Rate 1 : 69 bpm Height: 5'4" SpO2: 98% Weight: 199 lbs 11/07/2016 Blood Pressure 1: 158/82 Code : 8480-6 BMI: 34.7 Code : 59318-6 Heart Rate 1 : 76 bpm Height: 5'4" SpO2: 98% Weight: 202 lbs 10/14/2016 Blood Pressure 1: 140/80 Code : 8480-6 BMI: 34.0 Code : 27987-9 Heart Rate 1 : 79 bpm Height: 5'4" SpO2: 96% Weight: 198 lbs 09/10/2016 Blood Pressure 1: 158/80 Code : 8480-6 BMI: 34.3 Code : 31703-8 Heart Rate 1 : 75 bpm Height: 5'4" SpO2: 98% Weight: 200 lbs 07/08/2016 Blood Pressure 1: 160/74 Code : 8480-6 BMI: 35.2 Code : 98362-8 Heart Rate 1 : 94 bpm Height: 5'4" SpO2: 97% Weight: 205 lbs 06/16/2016 Blood Pressure 1: 138/76 Code : 8480-6 BMI: 35.0 Code : 47623-7 Heart Rate 1 : 68 bpm Height: 5'4" SpO2: 98% Weight: 204 lbs 01/31/2016 Blood Pressure 1: 136/64 Code : 8480-6 BMI: 33.6 Code : 10862-3 Heart Rate 1 : 92 bpm Height: 5'4" SpO2: 98% Weight: 196 lbs 01/03/2016 Blood Pressure 1: 142/68 Code : 8480-6 BMI: 33.8 Code : 39073-2 Heart Rate 1 : 80 bpm Height: 5'4" SpO2: 97% Weight: 197 lbs 11/30/2015 Blood Pressure 1: 158/80 Code : 8480-6 Heart Rate 1: 83 bpm SpO2: 98% 11/21/2015 Blood Pressure 1: 172/80 Code : 8480-6 BMI: 32.8 Code : 89745-8 Heart Rate 1 : 87 bpm Height: [...] Hospital Follow Up _ pain 09/29/2017 left [facility] Hospital Follow Up Quality acute 09/29/2017 [...] data Encounters Encounter Performer Location Codes Date ([id number]) [id number] EST. PATIENT, LEVEL III Diagnosis: Cough[ICD10: R05] Diagnosis: Acute upper respiratory infection, unspecified[ICD10: J06.9] Kelli Gallardo MD, [facility] CPT-4: 48906 04/23/2018 ([id number]) [id number] EST. 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 CPT-4: 33436 04/12/2018 ([id number]) 36060 EST. PATIENT, LEVEL II Diagnosis: Cellulitis of right lower limb[ICD10: L03.115] Kelli Gallardo MD, [facility] CPT-4: 06746 03/08/2018 ([id number]) Miscellaneous no charge Diagnosis: Cellulitis of right lower limb[ICD10: L03.115] Kelli Gallardo MD, [facility] CPT-4: 34659 03/02/2018 ([id number]) [id number] EST. PATIENT, LEVEL III Diagnosis: Cellulitis of right lower limb[ICD10: L03.115] Kelli Gallardo MD, [facility] CPT-4: 65781 02/26/2018 [id number] EST. PATIENT, LEVEL III Diagnosis: Cellulitis of left lower limb[ICD10: L03.116] Octavia Gallardo MD, [facility] CPT-4: 78669 01/28/2018 ([id number]) 28344 EST. PATIENT, LEVEL III Diagnosis: Essential (primary) hypertension[ICD10: I10] Diagnosis: retirement (current) use of anticoagulants[ICD10: Z79.01] Diagnosis: Nocturia[ICD10: R35.1] Pamela Gallardo MD, [facility] CPT-4: 84296 12/29/2017 ([id number]) 68389 EST. PATIENT, LEVEL IV Diagnosis: Essential (primary) hypertension[ICD10: I10] Diagnosis: Urge incontinence[ICD10: N39.41] Pamela Gallardo MD, [facility] CPT-4: 68121 09/29/2017 ([id number]) 72069 EST. PATIENT, LEVEL IV Diagnosis: Essential (primary) hypertension[ICD10: I10] Diagnosis: Mixed hyperlipidemia[ICD10: E78.2] Diagnosis: retirement (current) use of anticoagulants[ICD10: Z79.01] Pamela Gallardo MD, [facility] CPT-4: 69740 08/11/2017 ([id number]) 55658 EST. 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 CPT-4: 87434 03/16/2017 ([id number]) 04257 EST. PATIENT, LEVEL IV Diagnosis: Essential (primary) hypertension[ICD10: I10] Diagnosis: Mixed hyperlipidemia[ICD10: E78.2] Diagnosis: retirement (current) use of anticoagulants[ICD10: Z79.01] Pamela Gallardo MD, [facility] CPT-4: 50400 12/15/2016 ([id number]) 17758 EST. 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 CPT-4: 27834 11/07/2016 ([id number]) 78766 EST. PATIENT, LEVEL IV Diagnosis: Essential (primary) hypertension[ICD10: I10] Diagnosis: Mixed hyperlipidemia[ICD10: E78.2] Diagnosis: Gross hematuria[ICD10: R31.0] Pamela Gallardo MD, [facility] CPT- 4: 09058 10/14/2016 ([id number] 20401 EST. 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 CPT-4: 06008 09/10/2016 91117 EST. PATIENT, LEVEL III Diagnosis: Gross hematuria[ICD10: R31.0] Octavia Gallardo MD, [facility] CPT-4 : 89131 07/08/2016 ([id number]) 20148 EST. 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 CPT-4: 44919 06/16/2016 ([id number]) 36249 EST. PATIENT, LEVEL IV Diagnosis: Essential (primary) hypertension[ICD10: I10] Diagnosis: Mixed hyperlipidemia[ICD10: E78.2] Pamela Gallardo MD, [facility] CPT-4: 24324 01/31/2016 ([id number]) 47421 EST. PATIENT, LEVEL IV Diagnosis: Essential (primary) hypertension[ICD10: I10] Diagnosis: Mixed hyperlipidemia[ICD10: E78.2] Diagnosis: Encounter for immunization[ICD10: Z23] Pamela Gallardo MD, [facility] CPT-4: 55167 01/03/2016 ([id number]) Miscellaneous no charge Diagnosis: Essential (primary) hypertension[ICD10: I10] [facility] CPT-4: 28135 11/30/2015 ([id number]) OFFICE VISIT, NEW - LEVEL 4 Diagnosis: Essential (primary) hypertension[ICD10: I10] Diagnosis: Mixed hyperlipidemia[ICD10: E78.2] Diagnosis: Impacted cerumen, bilateral[ICD10: H61.23] [facility] CPT-4: 07288 11/21/2015 Plan of Care Planned Activity Notes Codes Status Date Visit Plan: URI - Pt advised to increase fluids, vitamin C. Discussed natural and expected course of this diagnosis and need to alert me if symptoms do not follow expected course, or if any worse. RX sent to patient' s pharmacy. 04/23/2018 Appointment: Kelli Mccullough WPtel: [facility]7 [phone] (15 min) Moderate 04/23/2018 Patient Education: [...] and 3.5. 04/12/2018 Appointment: Pamela Gallardo WPtel: [facility]3 [facility] (15 min) Moderate 04/12/2018 Patient Education: Patient Medication Summary Completed 04/12/2018 Visit Plan: Ulcer of right leg -healed-no further treatment indicated 03/08/2018 Appointment: Kelli Mccullough WPtel: [address] [place], [place] [phone] (15 min) Moderate 03/08/2018 Patient Education: Patient Medication Summary Completed 03/08/2018 Visit Plan: Ulcer of leg -improved-continue wound care as directed-follow up in 1 week, sooner if needed 03/02/2018 Appointment: Kelli Mccullough WPtel: [phone] (15 min) Moderate 03/02/2018 Patient Education: Patient Medication Summary Completed 03/02/2018 Visit Plan: Cellulitis - continue with oral antibiotics as previously directed, return to clinic as previously directed, call for acute change in symptoms, worsening redness, warmth, discharge. 02/26/2018 Appointment: Kelli Mcculloughl: [phone] [phone] [place] (15 min) Moderate 02/26/2018 Patient Education: Patient Medication Summary Completed 02/26/2018 Visit Plan: Cellulitis - pt is to follow up with his surgeon - continue with oral antibiotics as previously directed, return to clinic as previously directed, call for acute change in symptoms, worsening redness, warmth, discharge. 01/28/2018 Appointment: Octavia Zarate WPtel: [phone] [phone] (15 min) Moderate 01/28/2018 Patient Education: [...] supportive care. 12/29/2017 Appointment: Pamela Gallardo WPtel: [facility] (15 min) Moderate 12/29/2017 Patient Education: Patient Medication Summary Completed 12/29/2017 Appointment: Pamela Gallardo WPtel: [facility] Same Day appointments 12/16/2017 Visit Plan: [...] the pharmacy 09/29/2017 Appointment: Pamela Gallardo WPtel: [facility] (15 min) Moderate 09/29/2017 Patient Education: Patient [...] - last INR good 08/11/2017 Appointment: Pamela Gallardotel: [facility]5 [facility] (15 min) Moderate 08/11/2017 Patient Education: Patient Medication Summary Completed 08/11/2017 Appointment: Pamela Gallardotel: [facility]5 [facility] (15 min) Moderate 08/06/2017 Appointment: Pamela Gallardo WPtel: [facility]5 [facility] (15 min) Moderate 08/04/2017 Visit Plan: Hypertension [...] symptoms. 03/16/2017 Appointment: [phone] [facility] [place] (15 min) Moderate 03/16/2017 Patient Education: Patient Medication Summary Completed 03/16/2017 Patient Education: Obesity Completed 03/16/2017 Appointment: Pamela Gallardo WPtel: [phone] [facility] [place] (15 min) Moderate 12/30/2016 Visit [...] today. 12/15/2016 Appointment: [phone] [facility] [place] (15 min) Moderate 12/15/2016 Patient Education: Patient Medication Summary Completed 12/15/2016 Visit Plan: Iron deficiency hiyaec-kbsh-pumcel bleeding- INR has been stable-continue multivitamin with iron daily Hematuria-3+ blood in urine-check PT/INR today-culture urine 11/07/2016 Appointment: Kelli Mccullough WPtel: [phone] [phone] [place] (15 min) Moderate 11/07/2016 Patient [...] to medications. 10/14/2016 Appointment: Pamela Gallardo WPtel: [facility] (15 min) Moderate 10/14/2016 Patient Education: Patient Medication Summary Completed 10/14/2016 Patient Education: Obesity Completed 10/14/2016 Appointment: Pam[facility] [phone] [facility] (15 min) Moderate 10/09/2016 Visit Plan: Hypertension [...] or concerns. 07/08/2016 Appointment: Octavia Zarate [facility]el[facility] [phone] [facility] [place] (15 min) Moderate 07/08/2016 Patient Education: [...] with coumadin. 06/16/2016 Appointment: Pamela Gallardo [facility]Ptel: [phone] [facility] [place] (15 min) Moderate 06/16/2016 Patient Education: Patient Medication Summary Completed 06/16/2016 Patient Education: Obesity Completed 06/16/2016 Appointment: Pam[facility] [phone] [facility] (15 min) Moderate 05/22/2016 Patient Education: Patient [...] medications. 01/31/2016 Appointment: Pamela Gallardo [facility]: [phone] [facility] (15 min) Moderate 01/31/2016 Patient Education: Patient [...] to medications. 01/03/2016 Appointment: Pam[facility] Gallardo [facility] [phone] [facility] (15 min) Moderate 01/03/2016 Patient Education: Patient [...] medications. 11/21/2015 Appointment: Pam[facility]ardo [facility] [phone] [facility] New Patient 11/21/2015 Patient Education: Patient Medication [...] it to the pharmacy . Iron deficiency skruix-qvzy-gqizns bleeding-INR has been stable-continue multivitamin with iron [...] of right leg -healed-no further treatment indicated . URI - Pt advised to increase [...]
--- OUTSIDE RECORDS SUMMARY | 2018-07-09 11:37 | XMS REPORT | CCD ---
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 Name Role Phone PP Unavailable CCM Unavailable Summary Purpose Interface Exchange Insurance Providers Payer name Policy type / Coverage type Covered green party ID Effective Begin Date Effective End Date WPS Medicare Part B Medicare Part B [id number] Unknown [facility] Medicare Part B [id number] Unknown Family history Father Diagnosis Age At [...] Unknown Retired 11/21/[address]: 5785508 Former smoker Quit September 2014 11/21/[address]: 076129 Currently drinks alcohol 11/21/2015 Has the patient [...] ICD-9: 401.1 ICD-10: I10 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/2016 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: 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.61 [...] hypertension ICD-9: 401.1 ICD-10: I10 01/30/2016 Active custodial (current) use of anticoagulants ICD-9: V58.61 [...] Start Date Stop Date Status Fill Instructions Keflex 500 mg capsule RxNorm: 853453 1 Capsule(s) PO TID 201804/29/2018 Active Kenalog 40 mg/mL suspension for injection RxNorm: 6934283 Milliliter(s) Inj 04/23/2018 04/23/2018 Inactive Keflex 500 mg capsule RxNorm: 749897 1 Capsule(s) PO TID 201703/04/2018 Inactive Bactrim DS 800 mg-160 mg tablet RxNorm: 497881 1 Tablet(s) PO BID 01/28/2018 02/06/2018 Inactive warfarin 5 mg tablet RxNorm: 741144 1 Tablet(s) PO UD on Thursday - goal for INR is 2.3 12/25/2017 08/21/2018 Active warfarin 7.5 mg tablet RxNorm: 560242 1 Tablet(s) PO daily except Sat take 5mg 12/25/2017 12/19/2018 Active Lovenox 40 mg/0.4 mL subcutaneous syringe RxNorm: 229432 1 Milliliter(s) SQ BID 10/14/2017 No Stop Date Active Holding coumadin x 5 days. Start the day after stopping coumadin for procedure. Hold the day of surgery. The day after surgery resume BID x 4 days. Vesicare 10 mg tablet RxNorm: 679271 1 Tablet(s) PO QPM 2017 No Stop Date Active lisinopril 20 mg tablet RxNorm: 298136 TAKE ONE TABLET BY MOUTH ONCE DAILY 06/23/2017 No Stop Date Active warfarin 5 mg tablet RxNorm: 604496 1 Tablet(s) PO UD on Thursday and - goal for INR is 2.3 02/11/2017 10/08/2017 Inactive lisinopril 20 mg tablet RxNorm: 311355 1 Tablet(s) PO daily 06/22/2017 Inactive warfarin 7.5 mg tablet RxNorm: 934802 1 Tablet(s) PO daily except Thu10/14/2016 10/08/2017 Inactive warfarin 5 mg tablet RxNorm: 678056 1 Tablet(s) PO UD on Thursday and - goal for INR is 2.3 10/14/2016 02/10/2017 Inactive warfarin 5 mg tablet RxNorm: 091315 1 Tablet(s) PO UD on Thursday10/14/2016 10/13/2016 Inactive warfarin 7.5 mg tablet RxNorm: 380801 1 Tablet(s) PO daily 10/13/2016 Inactive warfarin 7.5 mg tablet RxNorm: 086384 1 Tablet(s) PO daily 03/201708/17/2016 Inactive Norvasc 5 mg tablet RxNorm: 172580 1 Tablet(s) PO QPM 201512/14/2016 Inactive aspirin 81 mg chewable tablet RxNorm: 760874 1 Tablet(s) PO daily No Start Date Active amlodipine 2.5 mg tablet RxNorm: 389130 1 Tablet(s) PO daily No Start Date Active PreserVision AREDS 2 oral RxNorm: 5866479 oral No Start Date Active Citracal + D3 (calcium phosphate) oral RxNorm: 4836833 oral No Start Date Active Centrum Silver tablet RxNorm: 1 Tablet(s) PO daily No Start Date Active Colace 100 mg capsule RxNorm: 2498371 1-2 Capsule(s) PO as needed constipation No Start Date Active Imodium A-D 2 mg tablet RxNorm: 748975 1 Tablet(s) PO as needed diarrhea No Start Date Active atorvastatin 20 mg tablet RxNorm: 915519 1 Tablet(s) PO daily No Start Date Active carvedilol 6.25 mg tablet RxNorm: 791283 1 Tablet(s) PO BID No Start Date Active Lupron Depot intramuscular RxNorm: 589256 intramuscular No Start Date Active Lovenox 40 mg/0.4 mL subcutaneous syringe RxNorm: 164180 1 Milliliter(s) SQ BID No Start Date 10/13/2017 Inactive Holding coumadin x 5 days. Start the day after stopping coumadin for procedure. Hold the day of surgery. The day after surgery resume BID x 4 days. warfarin 5 mg tablet RxNorm: 142198 1 Tablet(s) PO every other day No Start Date 10/13/2016 Inactive warfarin 7.5 mg tablet RxNorm: 567955 1 Tablet(s) PO every other day No Start Date 07/15/2016 Inactive lisinopril 20 mg tablet RxNorm: 728807 1 Tablet(s) PO daily No Start Date 12/28/2016 Inactive clopidogrel 75 mg tablet RxNorm: 628569 1 Tablet(s) PO daily No Start Date 03/10/2016 Inactive Medication Administered Medication Codes Instructions Start Date Status Kenalog 40 mg/mL suspension for injection RxNorm: 9174622 Milliliter 04/23/2018 No longer Active Immunizations Vaccine Codes Date Status Influenza CVX: 141 01/04/2018 completed Influenza CVX: 141 01/03/2016 completed Assessments Condition Codes Effective Dates Cough ICD-10: R05 ICD-9: 786.2 04/23/2018 Acute upper respiratory infection, unspecified ICD-10: J06.9 ICD-9: 465.9 04/23/2018 Malignant neoplasm of prostate ICD-10: C61 ICD-9: 185 04/12/2018 Essential (primary) hypertension ICD-10: I10 ICD-9: 401.1 04/12/2018 custodial (current) use of anticoagulants ICD-10: Z79.01 ICD-9: V58.61 04/12/2018 Personal history of malignant neoplasm of prostate ICD-10: Z85.46 ICD-9: V10.46 04/12/2018 Cellulitis of right lower limb ICD-10: [...] Code Item Item Code Result Date Pt Riy1031 PT 28.0 seconds 04/12/2018 Pt Sjy3023 INR 2.7 04/12/2018 Pt Rst0977 Low Intensity - 1.5-2.0 04/12/2018 Pt Cuh3524 Mod intensity - 2.0-3.0 04/12/2018 Pt Ayk6217 Hi intensity - 3.0-4.0 04/12/2018 Pt Dez7870 PT 24.4 seconds 03/03/2018 Pt Fvt4888 INR 2.2 03/03/2018 Pt Rtw6383 Low Intensity - 1.5-2.0 03/03/2018 Pt Kmq7497 Mod intensity - 2.0-3.0 03/03/2018 Pt Wrq8757 Hi intensity - 3.0-4.0 03/03/2018 Pt Nym8275 PT 28.9 seconds 02/15/2018 Pt Ugy3800 INR 2.8 02/15/2018 Pt Xcm2836 Low Intensity - 1.5-2.0 02/15/2018 Pt Mnb1556 Mod intensity - 2.0-3.0 02/15/2018 Pt Nkk6902 Hi intensity - 3.0-4.0 02/15/2018 Pt Sek4000 PT 27.2 seconds 02/02/2018 Pt Boo2476 INR 2.6 02/02/2018 Pt Gdz5842 Low Intensity - 1.5-2.0 02/02/2018 Pt Akr5796 Mod intensity - 2.0-3.0 02/02/2018 Pt Zdk9580 Hi intensity - 3.0-4.0 02/02/2018 Pt Ylo2547 PT 18.2 seconds 01/28/2018 Pt Xuo7034 INR 1.6 01/28/2018 Pt Iur2576 Low Intensity - 1.5-2.0 01/28/2018 Pt Ruf4785 Mod intensity - 2.0-3.0 01/28/2018 Pt Qpm7935 Hi intensity - 3.0-4.0 01/28/2018 Pt Mvj2726 PT 19.8 seconds 01/22/2018 Pt Suf3197 INR 1.7 01/22/2018 Pt Lrf8283 Low Intensity - 1.5-2.0 01/22/2018 Pt Mlr8594 Mod intensity - 2.0-3.0 01/22/2018 Pt Krc9429 Hi intensity - 3.0-4.0 01/22/2018 Pt Goo8266 PT 38.3 seconds 01/15/2018 Pt Xcq7044 INR 3.8 01/15/2018 Pt Bam4752 Low Intensity - 1.5-2.0 01/15/2018 Pt Aan7296 Mod intensity - 2.0-3.0 01/15/2018 Pt Khu6912 Hi intensity - 3.0-4.0 01/15/2018 Pt Gfr5913 PT 27.1 seconds 01/05/2018 Pt Dko2112 INR 2.5 01/05/2018 Pt Lgs8912 Low Intensity - 1.5-2.0 01/05/2018 Pt Ead7036 Mod intensity - 2.0-3.0 01/05/2018 Pt Pqh1178 Hi intensity - 3.0-4.0 01/05/2018 Pt Lrb4730 PT 27.2 seconds 12/25/2017 Pt Uuk4653 INR 2.5 12/25/2017 Pt Fym5308 Low Intensity - 1.5-2.0 12/25/2017 Pt Wmn3041 Mod intensity - 2.0-3.0 12/25/2017 Pt Yvh4962 Hi intensity - 3.0-4.0 12/25/2017 Pt Nvo0489 PT 22.2 seconds 12/09/2017 Pt Deu8944 INR 2.0 12/09/2017 Pt Lkm9840 Low Intensity - 1.5-2.0 12/09/2017 Pt Ecb6326 Mod intensity - 2.0-3.0 12/09/2017 Pt Izb7912 Hi intensity - 3.0-4.0 12/09/2017 Pt Xuv6790 PT 20.5 seconds 11/27/2017 Pt Hyb0346 INR 1.8 11/27/2017 Pt Yto5532 Low Intensity - 1.5-2.0 11/27/2017 Pt Lxk6213 Mod intensity - 2.0-3.0 11/27/2017 Pt Xhi5575 Hi intensity - 3.0-4.0 11/27/2017 Pt Dqs9909 PT 16.8 seconds 11/23/2017 Pt Qkq0301 INR 1.4 11/23/2017 Pt Val0423 Low Intensity - 1.5-2.0 11/23/2017 Pt Gvh8638 Mod intensity - 2.0-3.0 11/23/2017 Pt Sen0954 Hi intensity - 3.0-4.0 11/23/2017 Pt Aqj3330 PT 13.4 seconds 11/20/2017 Pt Jlb3426 INR 1.1 11/20/2017 Pt Dle2254 Low Intensity - 1.5-2.0 11/20/2017 Pt Eqz4427 Mod intensity - 2.0-3.0 11/20/2017 Pt Knj2618 Hi intensity - 3.0-4.0 11/20/2017 Pt Axe9010 PT 29.3 seconds 09/22/2017 Pt Art0540 INR 2.7 09/22/2017 Pt Rst2283 Low Intensity - 1.5-2.0 09/22/2017 Pt Ihj7475 Mod intensity - 2.0-3.0 09/22/2017 Pt Hkm3878 Hi intensity - 3.0-4.0 09/22/2017 Pt Dzg4814 PT 24.6 seconds 08/27/2017 Pt Zal6428 INR 2.2 08/27/2017 Pt Xeq4428 Low Intensity - 1.5-2.0 08/27/2017 Pt Dgl6174 Mod intensity - 2.0-3.0 08/27/2017 Pt Ehn1743 Hi intensity - 3.0-4.0 08/27/2017 Pt Ndo6615 PT 24.9 seconds 08/03/2017 Pt Ffl6916 INR 2.3 08/03/2017 Pt Pyf6071 Low Intensity - 1.5-2.0 08/03/2017 Pt Hgn7573 Mod intensity - 2.0-3.0 08/03/2017 Pt Pph7679 Hi intensity - 3.0-4.0 08/03/2017 Pt Rhg3407 PT 24.4 seconds 06/17/2017 Pt Cza1937 INR 2.2 06/17/2017 Pt Nmk4460 Low Intensity - 1.5-2.0 06/17/2017 Pt Bzq1669 Mod intensity - 2.0-3.0 06/17/2017 Pt Mjl7525 Hi intensity - 3.0-4.0 06/17/2017 Pt Lzv1650 PT 26.8 seconds 06/01/2017 Pt Qoh6319 INR 2.5 06/01/2017 Pt Ann2943 Low Intensity - 1.5-2.0 06/01/2017 Pt Ivj5408 Mod intensity - 2.0-3.0 06/01/2017 Pt Trp4124 Hi intensity - 3.0-4.0 06/01/2017 Pt Gjt2587 PT 18.8 seconds 05/18/2017 Pt Dto7962 INR 1.6 05/18/2017 Pt Ylc1305 Low Intensity - 1.5-2.0 05/18/2017 Pt Icv3383 Mod intensity - 2.0-3.0 05/18/2017 Pt Kdi0363 Hi intensity - 3.0-4.0 05/18/2017 Pt Wmq5290 PT 18.6 seconds 04/27/2017 Pt Qew7566 INR 1.6 04/27/2017 Pt Quc9342 Low Intensity - 1.5-2.0 04/27/2017 Pt Qbs7471 Mod intensity - 2.0-3.0 04/27/2017 Pt Uja6772 Hi intensity - 3.0-4.0 04/27/2017 Pt Day3339 PT 26.1 seconds 04/13/2017 Pt Tdm7863 INR 2.4 04/13/2017 Pt Mvc7524 Low Intensity - 1.5-2.0 04/13/2017 Pt Kfz9835 Mod intensity - 2.0-3.0 04/13/2017 Pt Hey5770 Hi intensity - 3.0-4.0 04/13/2017 Comp Metabolic Uqc024 NA 140 mEq/L 03/17/2017 Comp Metabolic Itz252 K 4.4 mEq/L 03/17/2017 Comp Metabolic Ekj061 CL 104 mEq/L 03/17/2017 Comp Metabolic Rao536 CO2 30.0 mEq/L 03/17/2017 Comp Metabolic Wjd759 ANION GAP 10 03/17/2017 Comp Metabolic Nai597 GLUCOSE 122 mg/dL 03/17/2017 Comp Metabolic Hbo959 Creat 0.9 mg/dL 03/17/2017 Comp Metabolic Nng287 eGFR 82 ml/min/1.73m2 03/17/2017 Comp Metabolic Xqn789 BUN 22 mg/dL 03/17/2017 Comp Metabolic Iwp069 B/C Ratio 23.7 Ratio 03/17/2017 Comp Metabolic Anc783 CALCIUM 10.3 mg/dL 03/17/2017 Comp Metabolic Pys010 ALK PHOS 62 U/L 03/17/2017 Comp Metabolic Igt830 AST(SGOT) 19 U/L 03/17/2017 Comp Metabolic Owe768 ALT(SGPT) 21 U/L 03/17/2017 Comp Metabolic Ack391 BILI T 0.5 mg/dL 03/17/2017 Comp Metabolic Pap866 ALBUMIN 4.1 g/dL 03/17/2017 Comp Metabolic Afh403 TPRO 6.9 g/dL 03/17/2017 Comp Metabolic Kty417 GLOB 2.8 g/dL 03/17/2017 Comp Metabolic Srz788 A/G Ratio 1.5 Ratio 03/17/2017 Comp Metabolic Obi667 Osmo 284 mOsmo 03/17/2017 Lipid Ord30 CHOL [...] Ord30 C/HDL 2.1 Ratio 03/17/2017 Comp Metabolic Utb929 NA 140 mEq/L 03/17/2017 Comp Metabolic Qbj507 K 4.4 mEq/L 03/17/2017 Comp Metabolic Nyk397 CL 104 mEq/L 03/17/2017 Comp Metabolic Mzk442 CO2 30.0 mEq/L 03/17/2017 Comp Metabolic Mtf750 ANION GAP 10 03/17/2017 Comp Metabolic Veg466 GLUCOSE 122 mg/dL 03/17/2017 Comp Metabolic Iuk040 Creat 0.9 mg/dL 03/17/2017 Comp Metabolic Jpx919 eGFR 82 ml/min/1.73m2 03/17/2017 Comp Metabolic Ccx478 BUN 22 mg/dL 03/17/2017 Comp Metabolic Wgs162 B/C Ratio 23.7 Ratio 03/17/2017 Comp Metabolic Naq251 CALCIUM 10.3 mg/dL 03/17/2017 Comp Metabolic Vwd553 ALK PHOS 62 U/L 03/17/2017 Comp Metabolic Rxi003 AST(SGOT) 19 U/L 03/17/2017 Comp Metabolic Hpl311 ALT(SGPT) 21 U/L 03/17/2017 Comp Metabolic Blh141 BILI T 0.5 mg/dL 03/17/2017 Comp Metabolic Vpl738 ALBUMIN 4.1 g/dL 03/17/2017 Comp Metabolic Zhz966 TPRO 6.9 g/dL 03/17/2017 Comp Metabolic Pis543 GLOB 2.8 g/dL 03/17/2017 Comp Metabolic Fkp561 A/G Ratio 1.5 Ratio 03/17/2017 Comp Metabolic Adt668 Osmo 284 mOsmo 03/17/2017 Pt Cxd9904 PT 23.7 seconds 03/12/2017 Pt Ygd4977 INR 2.1 03/12/2017 Pt Ccm3075 Low Intensity - 1.5-2.0 03/12/2017 Pt Vfm5742 Mod intensity - 2.0-3.0 03/12/2017 Pt Jpg3678 Hi intensity - 3.0-4.0 03/12/2017 Pt Tky6402 PT 21.3 seconds 02/10/2017 Pt Vyp6205 INR 1.9 02/10/2017 Pt Vry6448 Low Intensity - 1.5-2.0 02/10/2017 Pt Myj6331 Mod intensity - 2.0-3.0 02/10/2017 Pt Jkv1718 Hi intensity - 3.0-4.0 02/10/2017 Pt Kba4948 PT 21.4 seconds 01/27/2017 Pt Rgf6775 INR 1.9 01/27/2017 Pt Xol3539 Low Intensity - 1.5-2.0 01/27/2017 Pt Dvp5082 Mod intensity - 2.0-3.0 01/27/2017 Pt Cjj1128 Hi intensity - 3.0-4.0 01/27/2017 Pt Plp3995 PT 22.0 seconds 01/19/2017 Pt Gzt8465 INR 1.9 01/19/2017 Pt Gqj3796 Low Intensity - 1.5-2.0 01/19/2017 Pt Adm4206 Mod intensity - 2.0-3.0 01/19/2017 Pt Mmd4991 Hi intensity - 3.0-4.0 01/19/2017 Pt Htv2599 PT 28.3 seconds 01/05/2017 Pt Avd1586 INR 2.6 01/05/2017 Pt Vdw0872 Low Intensity - 1.5-2.0 01/05/2017 Pt Tsr9958 Mod intensity - 2.0-3.0 01/05/2017 Pt Rwd0542 Hi intensity - 3.0-4.0 01/05/2017 Pt Yqj6622 PT 29.1 seconds 12/15/2016 Pt Xyf3275 INR 2.7 12/15/2016 Pt Sij2573 Low Intensity - 1.5-2.0 12/15/2016 Pt Bem7482 Mod intensity - 2.0-3.0 12/15/2016 Pt Wqo6431 Hi intensity - 3.0-4.0 12/15/2016 Urine Culture Ucult Preliminary NO Growth Day 1 11/10/2016 Urine Culture Ucult Complete NO Growth Day 2 11/10/2016 Pt Hrt1499 PT 23.7 seconds 11/07/2016 Pt Kge7414 INR 2.1 11/07/2016 Pt Slp2201 Low Intensity - 1.5-2.0 11/07/2016 Pt Jwy4650 Mod intensity - 2.0-3.0 11/07/2016 Pt Wbu9547 Hi intensity - 3.0-4.0 11/07/2016 Pt Xft2700 PT 27.1 seconds 10/13/2016 Pt Vag0587 INR 2.7 10/13/2016 Pt Tym7200 Low Intensity - 1.5-2.0 10/13/2016 Pt Zhk3017 Mod intensity - 2.0-3.0 10/13/2016 Pt Lur5156 Hi intensity - 3.0-4.0 10/13/2016 Pt Acn0085 PT 26.3 seconds 09/23/2016 Pt Gwi9211 INR 2.6 09/23/2016 Pt Vic4951 Low Intensity - 1.5-2.0 09/23/2016 Pt Gqg3006 Mod intensity - 2.0-3.0 09/23/2016 Pt Czb8122 Hi intensity - 3.0-4.0 09/23/2016 Pt Dnf3135 PT 20.4 seconds 09/09/2016 Pt Uxp1641 INR 1.8 09/09/2016 Pt Pgo0328 Low Intensity - 1.5-2.0 09/09/2016 Pt Yck7765 Mod intensity - 2.0-3.0 09/09/2016 Pt Wcn8238 Hi intensity - 3.0-4.0 09/09/2016 Pt Fzl2647 PT 24.1 seconds 08/26/2016 Pt Ale0405 INR 2.3 08/26/2016 Pt Nqq2195 Low Intensity - 1.5-2.0 08/26/2016 Pt Gce6747 Mod intensity - 2.0-3.0 08/26/2016 Pt Zur5769 Hi intensity - 3.0-4.0 08/26/2016 Pt Eiv3168 PT 26.1 seconds 08/12/2016 Pt Xja0811 INR 2.6 08/12/2016 Pt Msx2932 Low Intensity - 1.5-2.0 08/12/2016 Pt Hiq4805 Mod intensity - 2.0-3.0 08/12/2016 Pt Kxr8984 Hi intensity - 3.0-4.0 08/12/2016 Pt Ifa8166 PT 23.5 seconds 07/15/2016 Pt Fqy5952 INR 2.2 07/15/2016 Pt Glh4590 Low Intensity - 1.5-2.0 07/15/2016 Pt Voc2206 Mod intensity - 2.0-3.0 07/15/2016 Pt Ros1205 Hi intensity - 3.0-4.0 07/15/2016 Urine Culture Ucult Preliminary NO Growth Day 1 07/10/2016 Urine Culture Ucult Complete NO Growth Day 2 07/10/2016 Pt Map2435 PT 27.9 seconds 06/30/2016 Pt Xsy0554 INR 2.8 06/30/2016 Pt Ceh2212 Low Intensity - 1.5-2.0 06/30/2016 Pt Bux2647 Mod intensity - 2.0-3.0 06/30/2016 Pt Jwd6221 Hi intensity - 3.0-4.0 06/30/2016 Pt Hpw5944 PT 23.7 seconds 06/12/2016 Pt Zcd9668 INR 2.3 06/12/2016 Pt Vjq9412 Low Intensity - 1.5-2.0 06/12/2016 Pt Hqf9590 Mod intensity - 2.0-3.0 06/12/2016 Pt Qye7140 Hi intensity - 3.0-4.0 06/12/2016 Pt Zlb3217 PT 36.5 seconds 06/06/2016 Pt Bus3422 INR 4.0 06/06/2016 Pt Kjg5980 Low Intensity - 1.5-2.0 06/06/2016 Pt Myr6163 Mod intensity - 2.0-3.0 06/06/2016 Pt Vtb9851 Hi intensity - 3.0-4.0 06/06/2016 Tibc Ord40 Iron 76 ug/dl 05/05/2016 Tibc Ord40 UIBC 210 ug/dL 05/05/2016 Tibc Ord40 TIBC 286 ug/dL 05/05/2016 Tibc Ord40 Fe-%Sat 26.6 % 05/05/2016 Pt Hfx6444 PT 29.0 seconds 05/05/2016 Pt Dbk7699 INR 2.9 05/05/2016 Pt Imw4401 Low Intensity - 1.5-2.0 05/05/2016 Pt Pfe9710 Mod intensity - 2.0-3.0 05/05/2016 Pt Kxv5803 Hi intensity - 3.0-4.0 05/05/2016 Ferritin Ord22 FERRITIN 32.7 ng/mL 05/05/2016 Pt Kxr3723 PT 31.1 seconds 04/08/2016 Pt Drc7508 INR 3.2 04/08/2016 Pt Jso3553 Low Intensity - 1.5-2.0 04/08/2016 Pt Edo4515 Mod intensity - 2.0-3.0 04/08/2016 Pt Ofz8957 Hi intensity - 3.0-4.0 04/08/2016 Cbc With [...] 34.5 % 03/24/2016 Cbc With Differential Ord2 [place]% 11.3 % 03/24/2016 Cbc With Differential Ord2 [...] 2.29 K/ul 03/24/2016 Cbc With Differential Ord2 [place] ABS# 0.8 K/ul 03/24/2016 Cbc With Differential Ord2 Eos ABS# 0.5 K/ul 03/24/2016 Cbc With Differential Ord2 Baso ABS# 0.0 K/ul 03/24/2016 Pt Diz9342 PT 17.3 seconds 03/24/2016 Pt Jrj6630 INR 1.5 03/24/2016 Pt Bln0258 Low Intensity - 1.5-2.0 03/24/2016 Pt Zin8575 Mod intensity - 2.0-3.0 03/24/2016 Pt Edj1844 Hi intensity - 3.0-4.0 03/24/2016 Pt Gkl6866 PT 17.8 seconds 03/12/2016 Pt Hab4048 INR 1.5 03/12/2016 Pt Gor6774 Low Intensity - 1.5-2.0 03/12/2016 Pt Giy9503 Mod intensity - 2.0-3.0 03/12/2016 Pt Uzx3044 Hi intensity - 3.0-4.0 03/12/2016 Urine Culture Ucult Preliminary NO Growth Day 1 02/29/2016 Urine Culture Ucult Complete NO Growth Day 2 02/29/2016 Lipid Ord30 CHOL 129 mg/dL 02/21/2016 Lipid Ord30 HDL 59.0 mg/dl 02/21/2016 Lipid Ord30 TRIG 90 mg/dL 02/21/2016 Lipid Ord30 LDL 52 mg/dL 02/21/2016 Lipid Ord30 C/HDL 2.2 Ratio 02/21/2016 Comp Metabolic Zxf509 NA 136 mEq/L 02/21/2016 Comp Metabolic Obc882 K 4.4 mEq/L 02/21/2016 Comp Metabolic Qyk737 CL 102 mEq/L 02/21/2016 Comp Metabolic Pqw153 CO2 29.0 mEq/L 02/21/2016 Comp Metabolic Yzr085 ANION GAP 9 02/21/2016 Comp Metabolic Eyz628 GLUCOSE 118 mg/dL 02/21/2016 Comp Metabolic Ycy456 Creat 1.0 mg/dL 02/21/2016 Comp Metabolic Vwq331 eGFR 72 ml/min/1.73m2 02/21/2016 Comp Metabolic Etq744 BUN 23 mg/dL 02/21/2016 Comp Metabolic Bgq675 B/C Ratio 22.1 Ratio 02/21/2016 Comp Metabolic Lgy351 CALCIUM 9.9 mg/dL 02/21/2016 Comp Metabolic Pqm066 ALK PHOS 57 U/L 02/21/2016 Comp Metabolic Vtn413 AST(SGOT) 17 U/L 02/21/2016 Comp Metabolic Ppn713 ALT(SGPT) 19 U/L 02/21/2016 Comp Metabolic Hdb319 BILI T 0.6 mg/dL 02/21/2016 Comp Metabolic Gzy757 ALBUMIN 3.9 g/dL 02/21/2016 Comp Metabolic Wgs037 TPRO 6.9 g/dL 02/21/2016 Comp Metabolic Cqw747 GLOB 3.0 g/dL 02/21/2016 Comp Metabolic Yty497 A/G Ratio 1.3 Ratio 02/21/2016 Comp Metabolic Hgq993 Osmo 277 mOsmo 02/21/2016 Pt Xvn0494 PT 19.8 seconds 02/21/2016 Pt Rax6030 INR 1.8 02/21/2016 Pt Tdz4331 Low Intensity - 1.5-2.0 02/21/2016 Pt Vwa3186 Mod intensity - 2.0-3.0 02/21/2016 Pt Anh2937 Hi intensity - 3.0-4.0 02/21/2016 Pt Zco6274 PT 24.1 seconds 01/15/2016 Pt Fdx1544 INR 2.3 01/15/2016 Pt Wer3568 Low Intensity - 1.5-2.0 01/15/2016 Pt Bxx4513 Mod intensity - 2.0-3.0 01/15/2016 Pt Ndr5503 Hi intensity - 3.0-4.0 01/15/2016 Pt Nwy1876 PT 26.5 seconds 01/03/2016 Pt Cwn1847 INR 2.6 01/03/2016 Pt Wpa7320 Low Intensity - 1.5-2.0 01/03/2016 Pt Ibi5910 Mod intensity - 2.0-3.0 01/03/2016 Pt Xpv5643 Hi intensity - 3.0-4.0 01/03/2016 Pt Jog1374 PT 15.3 seconds 11/30/2015 Pt Lrh4774 INR 1.3 11/30/2015 Pt Niy9580 Low Intensity - 1.5-2.0 11/30/2015 Pt Lph7539 Mod intensity - 2.0-3.0 11/30/2015 Pt Jky7278 Hi intensity - 3.0-4.0 11/30/2015 Review of [...] atraumatic 04/23/2018 None Full Exam - General 1995 Musculoskeletal head and neck Overall: cervical spine [...] Formatting Model/CDA Sections, Assigned to/Arabella Carballo CPT-4: 13184Whffdyt 01/04/2018 URINALYSIS NONAUTO W/O SCOPE CPT-4: 27634 11/07/2016 URINALYSIS NONAUTO W/O SCOPE CPT-4: 16175 02/26/2016 ADMIN INFLUENZA VIRUS VAC CPT-4: G0008 01/03/2016 FLU VACC 4 ARIANNA 3 YRS PLUS IM SNOMED CT: 60264220 CPT-4: 35164 01/03/2016 Vital Signs Date Vital 04/23/2018 Blood Pressure 1: 118/64 Code : 8480-6 BMI: 35.0 Code : 76449-8 Heart Rate 1 : 88 bpm Height: 5'4" SpO2: 96% Temperature: 36.3 (C) / 97.4 (F) Weight: 204 lbs 04/12/2018 Blood Pressure 1: 144/76 Code : 8480-6 BMI: 35.0 Code : 18751-8 Heart Rate 1 : 75 bpm Height: 5'4" SpO2: 98% Weight: 204 lbs 03/08/2018 Blood Pressure 1: 124/70 Code : 8480-6 Heart Rate 1: 84 bpm Height: 5'4" SpO2: 92% Weight: 03/02/2018 Blood Pressure 1: 138/76 Code : 8480-6 Heart Rate 1: 87 bpm Height: 5'4" SpO2: 98% Weight: 02/26/2018 Blood Pressure 1: 148/68 Code : 8480-6 BMI: 35.0 Code : 34518-0 Heart Rate 1 : 80 bpm Height: 5'4" SpO2: 97% Weight: 204 lbs 01/28/2018 Blood Pressure 1: 150/60 Code : 8480-6 Heart Rate 1: 91 bpm SpO2: 92% 12/29/2017 Blood Pressure 1: 144/62 Code : 8480-6 BMI: 34.7 Code : 73893-9 Heart Rate 1 : 73 bpm Height: 5'4" SpO2: 97% Weight: 202 lbs 09/29/2017 Blood Pressure 1: 132/80 Code : 8480-6 Heart Rate 1: 76 bpm SpO2: 97% Weight: 204 lbs 08/11/2017 Blood Pressure 1: 132/66 Code : 8480-6 BMI: 35.0 Code : 70985-8 Heart Rate 1 : 81 bpm Height: 5'4" SpO2: 96% Weight: 204 lbs 03/16/2017 Blood Pressure 1: 132/70 Code : 8480-6 BMI: 34.5 Code : 59567-3 Heart Rate 1 : 78 bpm Height: 5'4" SpO2: 98% Weight: 201 lbs 12/15/2016 Blood Pressure 1: 140/80 Code : 8480-6 BMI: 34.2 Code : 79686-2 Heart Rate 1 : 69 bpm Height: 5'4" SpO2: 98% Weight: 199 lbs 11/07/2016 Blood Pressure 1: 158/82 Code : 8480-6 BMI: 34.7 Code : 98176-9 Heart Rate 1 : 76 bpm Height: 5'4" SpO2: 98% Weight: 202 lbs 10/14/2016 Blood Pressure 1: 140/80 Code : 8480-6 BMI: 34.0 Code : 03214-6 Heart Rate 1 : 79 bpm Height: 5'4" SpO2: 96% Weight: 198 lbs 09/10/2016 Blood Pressure 1: 158/80 Code : 8480-6 BMI: 34.3 Code : 92399-2 Heart Rate 1 : 75 bpm Height: 5'4" SpO2: 98% Weight: 200 lbs 07/08/2016 Blood Pressure 1: 160/74 Code : 8480-6 BMI: 35.2 Code : 87701-4 Heart Rate 1 : 94 bpm Height: 5'4" SpO2: 97% Weight: 205 lbs 06/16/2016 Blood Pressure 1: 138/76 Code : 8480-6 BMI: 35.0 Code : 26341-2 Heart Rate 1 : 68 bpm Height: 5'4" SpO2: 98% Weight: 204 lbs 01/31/2016 Blood Pressure 1: 136/64 Code : 8480-6 BMI: 33.6 Code : 04537-6 Heart Rate 1 : 92 bpm Height: 5'4" SpO2: 98% Weight: 196 lbs 01/03/2016 Blood Pressure 1: 142/68 Code : 8480-6 BMI: 33.8 Code : 81772-2 Heart Rate 1 : 80 bpm Height: 5'4" SpO2: 97% Weight: 197 lbs 11/30/2015 Blood Pressure 1: 158/80 Code : 8480-6 Heart Rate 1: 83 bpm SpO2: 98% 11/21/2015 Blood Pressure 1: 172/80 Code : 8480-6 BMI: 32.8 Code : 32432-0 Heart Rate 1 : 87 bpm Height: [...] Hospital Follow Up _ pain 09/29/2017 left [facility] Hospital Follow Up Quality acute 09/29/2017 [...] data Encounters Encounter Performer Location Codes Date ([id number]) [id number] EST. PATIENT, LEVEL III Diagnosis: Cough[ICD10: R05] Diagnosis: Acute upper respiratory infection, unspecified[ICD10: J06.9] Kelli Gallardo MD, [facility] CPT-4: 87710 04/23/2018 ([id number]) 46131 EST. 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 PATIENT, LEVEL II Diagnosis: Cellulitis of right lower limb[ICD10: L03.115] Kelli Gallardo MD, [facility] CPT-4: 75017 03/08/2018 ([id number]) Miscellaneous no charge Diagnosis: Cellulitis of right lower limb[ICD10: L03.115] Kelli Gallardo MD, [facility] CPT-4: 10599 03/02/2018 ([id number]) 01512 EST. PATIENT, LEVEL III Diagnosis: Cellulitis of right lower limb[ICD10: L03.115] Kelli Gallardo MD, [facility] CPT-4: 68131 02/26/2018 [id number] EST. PATIENT, LEVEL III Diagnosis: Cellulitis of left lower limb[ICD10: L03.116] Octavia Gallardo MD, [facility] CPT-4: 24607 01/28/2018 ([id number]) 41224 EST. 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 PATIENT, LEVEL IV Diagnosis: Essential (primary) hypertension[ICD10: I10] Diagnosis: Urge incontinence[ICD10: N39.41] Pamela Gallardo MD, [facility] CPT-4: 38457 09/29/2017 ([id number]) 06800 EST. PATIENT, LEVEL IV Diagnosis: Essential (primary) hypertension[ICD10: I10] Diagnosis: Mixed hyperlipidemia[ICD10: E78.2] Diagnosis: custodial (current) use of anticoagulants[ICD10: Z79.01] Pamela Gallardo MD, [facility] CPT-4: 32210 08/11/2017 ([id number]) 65192 EST. 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 PATIENT, LEVEL IV Diagnosis: Essential (primary) hypertension[ICD10: I10] Diagnosis: Mixed hyperlipidemia[ICD10: E78.2] Diagnosis: Gross hematuria[ICD10: R31.0] Pamela Gallardo MD, [facility] CPT- 4: 97481 10/14/2016 ([id number]) 66449 EST. 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 PATIENT, LEVEL III Diagnosis: Gross hematuria[ICD10: R31.0] Octavia Gallardo MD, [facility] CPT-4 : 57720 07/08/2016 ([id number]) 89670 EST. 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 PATIENT, LEVEL IV Diagnosis: Essential (primary) hypertension[ICD10: I10] Diagnosis: Mixed hyperlipidemia[ICD10: E78.2] [facility] CPT-4: 80579 01/31/2016 ([id number]) 25469 EST. PATIENT, LEVEL IV Diagnosis: Essential (primary) hypertension[ICD10: I10] Diagnosis: Mixed hyperlipidemia[ICD10: E78.2] Diagnosis: Encounter for immunization[ICD10: Z23] [facility] CPT-4: 16984 01/03/2016 ([id number]) Miscellaneous no charge Diagnosis: Essential (primary) hypertension[ICD10: I10] [facility] CPT-4: 46170 11/30/2015 ([id number]) OFFICE VISIT, NEW - LEVEL 4 Diagnosis: Essential (primary) hypertension[ICD10: I10] Diagnosis: Mixed hyperlipidemia[ICD10: E78.2] Diagnosis: Impacted cerumen, bilateral[ICD10: H61.23] [facility] CPT-4: 71739 11/21/2015 Plan of Care Planned Activity Notes Codes Status Date Visit Plan: URI - Pt advised to increase fluids, vitamin C. Discussed natural and expected course of this diagnosis and need to alert me if symptoms do not follow expected course, or if any worse. RX sent to patient' s pharmacy. 04/23/2018 Appointment: Kelli Mccullough WPtel: [address] [place], [place] [phone] (15 min) Moderate 04/23/2018 Patient Education: Patient [...] and 3.5. 04/12/2018 Appointment: Pamela Gallardo WPtel: [phone] [facility] (15 min) Moderate 04/12/2018 Patient Education: Patient Medication Summary Completed 04/12/2018 Visit Plan: Ulcer of right leg -healed-no further treatment indicated 03/08/2018 Appointment: Kelli Mccullough WPtel: [phone] [place] (15 min) Moderate 03/08/2018 Patient Education: Patient Medication Summary Completed 03/08/2018 Visit Plan: Ulcer of leg -improved-continue wound care as directed-follow up in 1 week, sooner if needed 03/02/2018 Appointment: Kelli Mccullough WPtel: [phone] [place] (15 min) Moderate 03/02/2018 Patient Education: Patient Medication Summary Completed 03/02/2018 Visit Plan: Cellulitis - continue with oral antibiotics as previously directed, return to clinic as previously directed, call for acute change in symptoms, worsening redness, warmth, discharge. 02/26/2018 Appointment: Kelli Mccullough WPtel: [phone] [place] (15 min) Moderate 02/26/2018 Patient Education: Patient Medication Summary Completed 02/26/2018 Visit Plan: Cellulitis - pt is to follow up with his surgeon - continue with oral antibiotics as previously directed, return to clinic as previously directed, call for acute change in symptoms, worsening redness, warmth, discharge. 01/28/2018 Appointment: Octavia Zarate WPtel: [facility] [place] (15 min) Moderate 01/28/2018 Patient Education: [...] supportive care. 12/29/2017 Appointment: Pamela Gallardo WPtel: [phone] [facility] (15 min) Moderate 12/29/2017 Patient Education: Patient Medication Summary Completed 12/29/2017 Appointment: Pamela Gallardo WPtel: [facility] Same Day appointments 12/16/2017 Visit Plan: [...] the pharmacy 09/29/2017 Appointment: Pamela Gallardo WPtel: [facility] (15 min) Moderate 09/29/2017 Patient Education: [...] serially - last INR good 08/11/2017 [phone] [place] (15 min) Moderate 08/11/2017 Patient Education: Patient Medication Summary Completed 08/11/2017 App[facility]ment: [phone] [place] (15 min) Moderate 08/06/2017 App[facility]: [phone] [place] (15 min) Moderate 08/04/2017 Visit Plan: [...] monitor symptoms. 03/16/2017 Appointment: [phone] [place] (15 min) Moderate 03/16/2017 Patient Education: Patient Medication Summary Completed 03/16/2017 Patient Education: Obesity Completed 03/16/2017 Appointment: [phone] [place] (15 min) Moderate 12/30/2016 Visit [...] today. 12/15/2016 Appointment: [phone] [place] (15 min) Moderate 12/15/2016 Patient Education: Patient Medication Summary Completed 12/15/2016 Visit Plan: Iron deficiency [id number] bleeding- INR has been stable-continue multivitamin with iron daily Hematuria-3+ blood in urine-check PT/INR today-culture urine 11/07/2016 [facility]ment[phone] [place] (15 min) Moderate 11/07/2016 Patient Education: [...] medications. 10/14/2016 Appointment: [phone] [place] (15 min) Moderate 10/14/2016 Patient Education: Patient Medication Summary Completed 10/14/2016 Patient Education: Obesity Completed 10/14/2016 Appointment: [phone] [place] (15 min) Moderate 10/09/2016 Visit [...] concerns. 07/08/2016 Appointment: Octavia Zarate WPtel: [phone] [facility] (15 min) Moderate 07/08/2016 Patient Education: Patient [...] 06/16/2016 Appointment: Pamela Gallardo WPtel: [phone] [facility] (15 min) Moderate 06/16/2016 Patient Education: Patient Medication Summary Completed 06/16/2016 Patient Education: Obesity Completed 06/16/2016 Appointment: Pamela Gallardo WPtel: [phone] [facility] (15 min) Moderate 05/22/2016 Patient Education: Patient [...] medications. 01/31/2016 Appointment: [phone] (15 min) Moderate 01/31/2016 Patient Education: [...] medications. 01/03/2016 Appointment: [phone] [facility] (15 min) Moderate 01/03/2016 Patient Education: [...] medications. 11/21/2015 App[facility]ment: [phone] [facility] New Patient 11/21/2015 Patient Education: Patient Medication Summary Completed 11/21/2015 Patient Education: Obesity Completed 11/21/2015 Instructions Comment . URI - Pt advised to increase fluids, vitamin C. Discussed natural and expected course of this diagnosis and need to alert me if symptoms do not follow expected course, or if any worse. RX sent to patient's pharmacy. blood pressure is uncontrolled - i recommend [...] it to the pharmacy . Iron deficiency [id number]-[id number]-[id number] bleeding-INR has been stable-continue multivitamin with iron [...] of right leg -healed-no further treatment indicated increase the coumadin to 5mg on tuesdays, [...]
--- OUTSIDE RECORDS SUMMARY | 2018-07-09 11:40 | XMS REPORT | CCD ---
Author Author [facility] Organization [facility] Address [address] [place] [address] Phone Care Team Providers Care Regulatory Administrator Name Role Phone PP Unavailable CCM Unavailable Summary Purpose Interface Exchange Insurance Providers Payer name Policy type / Coverage type Covered alliance party ID Effective Begin Date Effective End Date WPS Medicare Part B Medicare Part B [id number] Unknown [facility] Medicare Part B [id number] Unknown Family history Father Diagnosis Age At [...] Unknown Retired 11/21/[address]: 0972241 Former smoker Quit September 2014 11/21/[address]: 407774 Currently drinks alcohol 11/21/2015 Has the patient [...] ICD-9: 401.1 ICD-10: I10 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/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-9: V58.61 ICD-10: [...] hypertension ICD-9: 401.1 ICD-10: I10 01/30/2016 Active 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 ICD-9: V58.61 ICD-10: [...] Kenalog 40 mg/mL suspension for injection RxNorm: 8677976 Milliliter(s) Inj 04/23/2018 04/23/2018 Inactive Keflex 500 mg capsule RxNorm: 811079 1 Capsule(s) PO TID 201804/29/2018 Active Keflex 500 mg capsule RxNorm: 631892 1 Capsule(s) PO TID 201703/04/2018 Inactive Bactrim DS 800 mg-160 mg tablet RxNorm: 619897 1 Tablet(s) PO BID 01/28/2018 02/06/2018 Inactive warfarin 5 mg tablet RxNorm: 878076 1 Tablet(s) PO UD on Thursday - goal for INR is 2.3 12/25/2017 08/21/2018 Active warfarin 7.5 mg tablet RxNorm: 293546 1 Tablet(s) PO daily except Sat take 5mg 12/25/2017 12/19/2018 Active Lovenox 40 mg/0.4 mL subcutaneous syringe RxNorm: 490177 1 Milliliter(s) SQ BID 10/14/2017 No Stop Date Active Holding coumadin x 5 days. Start the day after stopping coumadin for procedure. Hold the day of surgery. The day after surgery resume BID x 4 days. Vesicare 10 mg tablet RxNorm: 657347 1 Tablet(s) PO QPM 2017 No Stop Date Active lisinopril 20 mg tablet RxNorm: 023316 TAKE ONE TABLET BY MOUTH ONCE DAILY 06/23/2017 No Stop Date Active warfarin 5 mg tablet RxNorm: 261532 1 Tablet(s) PO UD on Thursday and - goal for INR is 2.3 02/11/2017 10/08/2017 Inactive lisinopril 20 mg tablet RxNorm: 063129 1 Tablet(s) PO daily 06/22/2017 Inactive warfarin 7.5 mg tablet RxNorm: 659715 1 Tablet(s) PO daily except Thu10/14/2016 10/08/2017 Inactive warfarin 5 mg tablet RxNorm: 067078 1 Tablet(s) PO UD on Thursday and - goal for INR is 2.3 10/14/2016 02/10/2017 Inactive warfarin 5 mg tablet RxNorm: 510031 1 Tablet(s) PO UD on Thursday10/14/2016 10/13/2016 Inactive warfarin 7.5 mg tablet RxNorm: 223437 1 Tablet(s) PO daily 10/13/2016 Inactive warfarin 7.5 mg tablet RxNorm: 851838 1 Tablet(s) PO daily 03/201708/17/2016 Inactive Norvasc 5 mg tablet RxNorm: 123251 1 Tablet(s) PO QPM 201512/14/2016 Inactive aspirin 81 mg chewable tablet RxNorm: 403751 1 Tablet(s) PO daily No Start Date Active amlodipine 2.5 mg tablet RxNorm: 347339 1 Tablet(s) PO daily No Start Date Active PreserVision AREDS 2 oral RxNorm: 7748172 oral No Start Date Active Citracal + D3 (calcium phosphate) oral RxNorm: 4613469 oral No Start Date Active Centrum Silver tablet RxNorm: 1 Tablet(s) PO daily No Start Date Active Colace 100 mg capsule RxNorm: 5293416 1-2 Capsule(s) PO as needed constipation No Start Date Active Imodium A-D 2 mg tablet RxNorm: 849946 1 Tablet(s) PO as needed diarrhea No Start Date Active atorvastatin 20 mg tablet RxNorm: 563993 1 Tablet(s) PO daily No Start Date Active carvedilol 6.25 mg tablet RxNorm: 081258 1 Tablet(s) PO BID No Start Date Active Lupron Depot intramuscular RxNorm: 072345 intramuscular No Start Date Active Lovenox 40 mg/0.4 mL subcutaneous syringe RxNorm: 241805 1 Milliliter(s) SQ BID No Start Date 10/13/2017 Inactive Holding coumadin x 5 days. Start the day after stopping coumadin for procedure. Hold the day of surgery. The day after surgery resume BID x 4 days. warfarin 5 mg tablet RxNorm: 926020 1 Tablet(s) PO every other day No Start Date 10/13/2016 Inactive warfarin 7.5 mg tablet RxNorm: 794319 1 Tablet(s) PO every other day No Start Date 07/15/2016 Inactive lisinopril 20 mg tablet RxNorm: 191187 1 Tablet(s) PO daily No Start Date 12/28/2016 Inactive clopidogrel 75 mg tablet RxNorm: 923364 1 Tablet(s) PO daily No Start Date 03/10/2016 Inactive Medication Administered Medication Codes Instructions Start Date Status Kenalog 40 mg/mL suspension for injection RxNorm: 2908663 Milliliter 04/23/2018 Active Immunizations Vaccine Codes Date Status Influenza CVX: 141 01/04/2018 completed Influenza CVX: 141 01/03/2016 completed Assessments Condition Codes Effective Dates Cough ICD-10: R05 ICD-9: 786.2 04/23/2018 Acute upper respiratory infection, unspecified ICD-10: J06.9 ICD-9: 465.9 04/23/2018 Personal history of malignant neoplasm of prostate ICD-10: Z85.46 ICD-9: V10.46 04/12/2018 Malignant neoplasm of prostate ICD-10: C61 ICD-9: 185 04/12/2018 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 ICD-10: Z79.01 ICD-9: [...] Code Item Item Code Result Date Pt Tpt9795 PT 28.0 seconds 04/12/2018 Pt Pad4978 INR 2.7 04/12/2018 Pt Vfp0263 Low Intensity - 1.5-2.0 04/12/2018 Pt Cua8759 Mod intensity - 2.0-3.0 04/12/2018 Pt Gqo2263 Hi intensity - 3.0-4.0 04/12/2018 Pt Kiz8963 PT 24.4 seconds 03/03/2018 Pt Duo7724 INR 2.2 03/03/2018 Pt Hhy9414 Low Intensity - 1.5-2.0 03/03/2018 Pt Yef9010 Mod intensity - 2.0-3.0 03/03/2018 Pt Pmg5596 Hi intensity - 3.0-4.0 03/03/2018 Pt Zfl6175 PT 28.9 seconds 02/15/2018 Pt Gjn9702 INR 2.8 02/15/2018 Pt Iar9105 Low Intensity - 1.5-2.0 02/15/2018 Pt Egl6312 Mod intensity - 2.0-3.0 02/15/2018 Pt Zoy6264 Hi intensity - 3.0-4.0 02/15/2018 Pt Rqz3531 PT 27.2 seconds 02/02/2018 Pt Eub9478 INR 2.6 02/02/2018 Pt Lfa0435 Low Intensity - 1.5-2.0 02/02/2018 Pt Eqd7775 Mod intensity - 2.0-3.0 02/02/2018 Pt Bsf8688 Hi intensity - 3.0-4.0 02/02/2018 Pt Njv2153 PT 18.2 seconds 01/28/2018 Pt Udp1039 INR 1.6 01/28/2018 Pt Ags9358 Low Intensity - 1.5-2.0 01/28/2018 Pt Fck6028 Mod intensity - 2.0-3.0 01/28/2018 Pt Qaw5085 Hi intensity - 3.0-4.0 01/28/2018 Pt Ssm4302 PT 19.8 seconds 01/22/2018 Pt Dlu9191 INR 1.7 01/22/2018 Pt Kdv6192 Low Intensity - 1.5-2.0 01/22/2018 Pt Jqo1656 Mod intensity - 2.0-3.0 01/22/2018 Pt Hve7056 Hi intensity - 3.0-4.0 01/22/2018 Pt Yam8150 PT 38.3 seconds 01/15/2018 Pt Rvf0874 INR 3.8 01/15/2018 Pt Dkt6411 Low Intensity - 1.5-2.0 01/15/2018 Pt Zly1640 Mod intensity - 2.0-3.0 01/15/2018 Pt Cfd0817 Hi intensity - 3.0-4.0 01/15/2018 Pt Aid8434 PT 27.1 seconds 01/05/2018 Pt Suo1316 INR 2.5 01/05/2018 Pt Jkb3888 Low Intensity - 1.5-2.0 01/05/2018 Pt Vxx1580 Mod intensity - 2.0-3.0 01/05/2018 Pt Mjv5850 Hi intensity - 3.0-4.0 01/05/2018 Pt Frx1813 PT 27.2 seconds 12/25/2017 Pt Yja4107 INR 2.5 12/25/2017 Pt Ogs7864 Low Intensity - 1.5-2.0 12/25/2017 Pt Ygx7119 Mod intensity - 2.0-3.0 12/25/2017 Pt Fov9942 Hi intensity - 3.0-4.0 12/25/2017 Pt Fjm5516 PT 22.2 seconds 12/09/2017 Pt Dgf4832 INR 2.0 12/09/2017 Pt Jgf4188 Low Intensity - 1.5-2.0 12/09/2017 Pt Drz1620 Mod intensity - 2.0-3.0 12/09/2017 Pt Tob6233 Hi intensity - 3.0-4.0 12/09/2017 Pt Two2938 PT 20.5 seconds 11/27/2017 Pt Yyz7122 INR 1.8 11/27/2017 Pt Fww6781 Low Intensity - 1.5-2.0 11/27/2017 Pt Mdq4100 Mod intensity - 2.0-3.0 11/27/2017 Pt Nck1785 Hi intensity - 3.0-4.0 11/27/2017 Pt Ryz1396 PT 16.8 seconds 11/23/2017 Pt Kct2328 INR 1.4 11/23/2017 Pt Xvy5650 Low Intensity - 1.5-2.0 11/23/2017 Pt Yyf4179 Mod intensity - 2.0-3.0 11/23/2017 Pt Afp3618 Hi intensity - 3.0-4.0 11/23/2017 Pt Qmz3962 PT 13.4 seconds 11/20/2017 Pt Vwe0390 INR 1.1 11/20/2017 Pt Blo6751 Low Intensity - 1.5-2.0 11/20/2017 Pt Csp0103 Mod intensity - 2.0-3.0 11/20/2017 Pt Rms8539 Hi intensity - 3.0-4.0 11/20/2017 Pt Evk3940 PT 29.3 seconds 09/22/2017 Pt Qre6320 INR 2.7 09/22/2017 Pt Ccw8936 Low Intensity - 1.5-2.0 09/22/2017 Pt Sza7444 Mod intensity - 2.0-3.0 09/22/2017 Pt Ayp2065 Hi intensity - 3.0-4.0 09/22/2017 Pt Aby7598 PT 24.6 seconds 08/27/2017 Pt Ajf1339 INR 2.2 08/27/2017 Pt Mgh7768 Low Intensity - 1.5-2.0 08/27/2017 Pt Mpt9545 Mod intensity - 2.0-3.0 08/27/2017 Pt Nne0666 Hi intensity - 3.0-4.0 08/27/2017 Pt Yhk1637 PT 24.9 seconds 08/03/2017 Pt Vdz1195 INR 2.3 08/03/2017 Pt Jaj4426 Low Intensity - 1.5-2.0 08/03/2017 Pt Rit0665 Mod intensity - 2.0-3.0 08/03/2017 Pt Cto6846 Hi intensity - 3.0-4.0 08/03/2017 Pt Xmh6888 PT 24.4 seconds 06/17/2017 Pt Idr7283 INR 2.2 06/17/2017 Pt Mvv9934 Low Intensity - 1.5-2.0 06/17/2017 Pt Tll7246 Mod intensity - 2.0-3.0 06/17/2017 Pt Ewo0808 Hi intensity - 3.0-4.0 06/17/2017 Pt Ktt3472 PT 26.8 seconds 06/01/2017 Pt Zju3874 INR 2.5 06/01/2017 Pt Ogn1949 Low Intensity - 1.5-2.0 06/01/2017 Pt Mhh2823 Mod intensity - 2.0-3.0 06/01/2017 Pt Mdu9934 Hi intensity - 3.0-4.0 06/01/2017 Pt Gfr2617 PT 18.8 seconds 05/18/2017 Pt Eqr5885 INR 1.6 05/18/2017 Pt Otm7315 Low Intensity - 1.5-2.0 05/18/2017 Pt Ifw6582 Mod intensity - 2.0-3.0 05/18/2017 Pt Wwf3899 Hi intensity - 3.0-4.0 05/18/2017 Pt Sef3804 PT 18.6 seconds 04/27/2017 Pt Lnv1452 INR 1.6 04/27/2017 Pt Ars9723 Low Intensity - 1.5-2.0 04/27/2017 Pt Fqb4826 Mod intensity - 2.0-3.0 04/27/2017 Pt Mxg9020 Hi intensity - 3.0-4.0 04/27/2017 Pt Ahz6723 PT 26.1 seconds 04/13/2017 Pt Gzr7602 INR 2.4 04/13/2017 Pt Rak7565 Low Intensity - 1.5-2.0 04/13/2017 Pt Pyg8241 Mod intensity - 2.0-3.0 04/13/2017 Pt Jgs5848 Hi intensity - 3.0-4.0 04/13/2017 Comp Metabolic Lgy226 NA 140 mEq/L 03/17/2017 Comp Metabolic Gis118 K 4.4 mEq/L 03/17/2017 Comp Metabolic Rfl973 CL 104 mEq/L 03/17/2017 Comp Metabolic Xkw295 CO2 30.0 mEq/L 03/17/2017 Comp Metabolic Tus908 ANION GAP 10 03/17/2017 Comp Metabolic Kky560 GLUCOSE 122 mg/dL 03/17/2017 Comp Metabolic Pwo574 Creat 0.9 mg/dL 03/17/2017 Comp Metabolic Coc453 eGFR 82 ml/min/1.73m2 03/17/2017 Comp Metabolic Cvy586 BUN 22 mg/dL 03/17/2017 Comp Metabolic Nqa865 B/C Ratio 23.7 Ratio 03/17/2017 Comp Metabolic Pci857 CALCIUM 10.3 mg/dL 03/17/2017 Comp Metabolic Hpo014 ALK PHOS 62 U/L 03/17/2017 Comp Metabolic Odu679 AST(SGOT) 19 U/L 03/17/2017 Comp Metabolic Ekj398 ALT(SGPT) 21 U/L 03/17/2017 Comp Metabolic Jux593 BILI T 0.5 mg/dL 03/17/2017 Comp Metabolic Ipe031 ALBUMIN 4.1 g/dL 03/17/2017 Comp Metabolic Cox129 TPRO 6.9 g/dL 03/17/2017 Comp Metabolic Mhh217 GLOB 2.8 g/dL 03/17/2017 Comp Metabolic Dcj072 A/G Ratio 1.5 Ratio 03/17/2017 Comp Metabolic Ipv493 Osmo 284 mOsmo 03/17/2017 Lipid Ord30 CHOL [...] Ord30 C/HDL 2.1 Ratio 03/17/2017 Comp Metabolic Mep555 NA 140 mEq/L 03/17/2017 Comp Metabolic Coo897 K 4.4 mEq/L 03/17/2017 Comp Metabolic Lto470 CL 104 mEq/L 03/17/2017 Comp Metabolic Wwr216 CO2 30.0 mEq/L 03/17/2017 Comp Metabolic Ppn789 ANION GAP 10 03/17/2017 Comp Metabolic Tfe112 GLUCOSE 122 mg/dL 03/17/2017 Comp Metabolic Lrz086 Creat 0.9 mg/dL 03/17/2017 Comp Metabolic Ars070 eGFR 82 ml/min/1.73m2 03/17/2017 Comp Metabolic Qwm308 BUN 22 mg/dL 03/17/2017 Comp Metabolic Seq938 B/C Ratio 23.7 Ratio 03/17/2017 Comp Metabolic Zfx429 CALCIUM 10.3 mg/dL 03/17/2017 Comp Metabolic Xba536 ALK PHOS 62 U/L 03/17/2017 Comp Metabolic Qts896 AST(SGOT) 19 U/L 03/17/2017 Comp Metabolic Vqv193 ALT(SGPT) 21 U/L 03/17/2017 Comp Metabolic Fal240 BILI T 0.5 mg/dL 03/17/2017 Comp Metabolic Uyb943 ALBUMIN 4.1 g/dL 03/17/2017 Comp Metabolic Zlg285 TPRO 6.9 g/dL 03/17/2017 Comp Metabolic Zgz327 GLOB 2.8 g/dL 03/17/2017 Comp Metabolic Yti957 A/G Ratio 1.5 Ratio 03/17/2017 Comp Metabolic Ckw660 Osmo 284 mOsmo 03/17/2017 Pt Tem8740 PT 23.7 seconds 03/12/2017 Pt Oxf6909 INR 2.1 03/12/2017 Pt Tis4315 Low Intensity - 1.5-2.0 03/12/2017 Pt Vwn6606 Mod intensity - 2.0-3.0 03/12/2017 Pt Zcu0832 Hi intensity - 3.0-4.0 03/12/2017 Pt Yhs4703 PT 21.3 seconds 02/10/2017 Pt Ynp1802 INR 1.9 02/10/2017 Pt Kti3724 Low Intensity - 1.5-2.0 02/10/2017 Pt Bfy1128 Mod intensity - 2.0-3.0 02/10/2017 Pt Mfg6961 Hi intensity - 3.0-4.0 02/10/2017 Pt Kvu8248 PT 21.4 seconds 01/27/2017 Pt Piy2013 INR 1.9 01/27/2017 Pt Lfu6073 Low Intensity - 1.5-2.0 01/27/2017 Pt Glg4416 Mod intensity - 2.0-3.0 01/27/2017 Pt Xjq9317 Hi intensity - 3.0-4.0 01/27/2017 Pt Fod5804 PT 22.0 seconds 01/19/2017 Pt Orj5071 INR 1.9 01/19/2017 Pt Ide4736 Low Intensity - 1.5-2.0 01/19/2017 Pt Fst7166 Mod intensity - 2.0-3.0 01/19/2017 Pt Nry4608 Hi intensity - 3.0-4.0 01/19/2017 Pt Cuu6073 PT 28.3 seconds 01/05/2017 Pt Mgs4560 INR 2.6 01/05/2017 Pt Lna8625 Low Intensity - 1.5-2.0 01/05/2017 Pt Bdb7611 Mod intensity - 2.0-3.0 01/05/2017 Pt Zlo8012 Hi intensity - 3.0-4.0 01/05/2017 Pt Jdm6881 PT 29.1 seconds 12/15/2016 Pt Nvr5525 INR 2.7 12/15/2016 Pt Smt1779 Low Intensity - 1.5-2.0 12/15/2016 Pt Zhr1178 Mod intensity - 2.0-3.0 12/15/2016 Pt Idu9096 Hi intensity - 3.0-4.0 12/15/2016 Urine Culture Ucult Preliminary NO Growth Day 1 11/10/2016 Urine Culture Ucult Complete NO Growth Day 2 11/10/2016 Pt Ysk8850 PT 23.7 seconds 11/07/2016 Pt Nqi3770 INR 2.1 11/07/2016 Pt Htf8024 Low Intensity - 1.5-2.0 11/07/2016 Pt Kib6465 Mod intensity - 2.0-3.0 11/07/2016 Pt Oxh7756 Hi intensity - 3.0-4.0 11/07/2016 Pt Ohv0917 PT 27.1 seconds 10/13/2016 Pt Ftz1027 INR 2.7 10/13/2016 Pt Uah5461 Low Intensity - 1.5-2.0 10/13/2016 Pt Bgk2650 Mod intensity - 2.0-3.0 10/13/2016 Pt Gju9890 Hi intensity - 3.0-4.0 10/13/2016 Pt Twh2445 PT 26.3 seconds 09/23/2016 Pt Hxt3771 INR 2.6 09/23/2016 Pt Mmu7291 Low Intensity - 1.5-2.0 09/23/2016 Pt Jca5644 Mod intensity - 2.0-3.0 09/23/2016 Pt Bth5262 Hi intensity - 3.0-4.0 09/23/2016 Pt Kjd3967 PT 20.4 seconds 09/09/2016 Pt Nia6528 INR 1.8 09/09/2016 Pt Ndw3310 Low Intensity - 1.5-2.0 09/09/2016 Pt Nib4227 Mod intensity - 2.0-3.0 09/09/2016 Pt Wmd7526 Hi intensity - 3.0-4.0 09/09/2016 Pt Yjn6475 PT 24.1 seconds 08/26/2016 Pt Ykr7373 INR 2.3 08/26/2016 Pt Trd4508 Low Intensity - 1.5-2.0 08/26/2016 Pt Zgg2591 Mod intensity - 2.0-3.0 08/26/2016 Pt Nqq1672 Hi intensity - 3.0-4.0 08/26/2016 Pt Uxy6551 PT 26.1 seconds 08/12/2016 Pt Bhf4813 INR 2.6 08/12/2016 Pt Mzo2153 Low Intensity - 1.5-2.0 08/12/2016 Pt Ewd9546 Mod intensity - 2.0-3.0 08/12/2016 Pt Hlq9649 Hi intensity - 3.0-4.0 08/12/2016 Pt Ggq5509 PT 23.5 seconds 07/15/2016 Pt Msf9745 INR 2.2 07/15/2016 Pt Wiz4821 Low Intensity - 1.5-2.0 07/15/2016 Pt Qqt9513 Mod intensity - 2.0-3.0 07/15/2016 Pt Evu9896 Hi intensity - 3.0-4.0 07/15/2016 Urine Culture Ucult Preliminary NO Growth Day 1 07/10/2016 Urine Culture Ucult Complete NO Growth Day 2 07/10/2016 Pt Oec3240 PT 27.9 seconds 06/30/2016 Pt Ywu7899 INR 2.8 06/30/2016 Pt Zjs4124 Low Intensity - 1.5-2.0 06/30/2016 Pt Zab8210 Mod intensity - 2.0-3.0 06/30/2016 Pt Ubw5376 Hi intensity - 3.0-4.0 06/30/2016 Pt Sau0677 PT 23.7 seconds 06/12/2016 Pt Xhz8337 INR 2.3 06/12/2016 Pt Rir2389 Low Intensity - 1.5-2.0 06/12/2016 Pt Gne7268 Mod intensity - 2.0-3.0 06/12/2016 Pt Xxm7500 Hi intensity - 3.0-4.0 06/12/2016 Pt Ejv4302 PT 36.5 seconds 06/06/2016 Pt Dfp4006 INR 4.0 06/06/2016 Pt Ofu1113 Low Intensity - 1.5-2.0 06/06/2016 Pt Geb9023 Mod intensity - 2.0-3.0 06/06/2016 Pt Wio2515 Hi intensity - 3.0-4.0 06/06/2016 Tibc Ord40 Iron 76 ug/dl 05/05/2016 Tibc Ord40 UIBC 210 ug/dL 05/05/2016 Tibc Ord40 TIBC 286 ug/dL 05/05/2016 Tibc Ord40 Fe-%Sat 26.6 % 05/05/2016 Pt Vac2930 PT 29.0 seconds 05/05/2016 Pt Akz1123 INR 2.9 05/05/2016 Pt Uri1970 Low Intensity - 1.5-2.0 05/05/2016 Pt Auo2543 Mod intensity - 2.0-3.0 05/05/2016 Pt Nlz2690 Hi intensity - 3.0-4.0 05/05/2016 Ferritin Ord22 FERRITIN 32.7 ng/mL 05/05/2016 Pt Gip4696 PT 31.1 seconds 04/08/2016 Pt Mpi2578 INR 3.2 04/08/2016 Pt Kwt6876 Low Intensity - 1.5-2.0 04/08/2016 Pt Czb3819 Mod intensity - 2.0-3.0 04/08/2016 Pt Kos3424 Hi intensity - 3.0-4.0 04/08/2016 Cbc With [...] 32.4 pg 03/24/2016 Cbc With Differential Ord2 [place]% 11.3 % 03/24/2016 Cbc With Differential Ord2 [...] 2.29 K/ul 03/24/2016 Cbc With Differential Ord2 [place] ABS# 0.8 K/ul 03/24/2016 Cbc With Differential Ord2 Eos ABS# 0.5 K/ul 03/24/2016 Cbc With Differential Ord2 Baso ABS# 0.0 K/ul 03/24/2016 Pt Xnl0461 PT 17.3 seconds 03/24/2016 Pt Vqd2560 INR 1.5 03/24/2016 Pt Wof3230 Low Intensity - 1.5-2.0 03/24/2016 Pt Kjz4086 Mod intensity - 2.0-3.0 03/24/2016 Pt Svj2479 Hi intensity - 3.0-4.0 03/24/2016 Pt Skk6793 PT 17.8 seconds 03/12/2016 Pt Qrq3414 INR 1.5 03/12/2016 Pt Oel6782 Low Intensity - 1.5-2.0 03/12/2016 Pt Uuy4217 Mod intensity - 2.0-3.0 03/12/2016 Pt Bql3643 Hi intensity - 3.0-4.0 03/12/2016 Urine Culture Ucult Complete NO Growth Day 2 02/29/2016 Urine Culture Ucult Preliminary NO Growth Day 1 02/29/2016 Lipid Ord30 CHOL 129 mg/dL 02/21/2016 Lipid Ord30 HDL 59.0 mg/dl 02/21/2016 Lipid Ord30 TRIG 90 mg/dL 02/21/2016 Lipid Ord30 LDL 52 mg/dL 02/21/2016 Lipid Ord30 C/HDL 2.2 Ratio 02/21/2016 Comp Metabolic Wqn123 NA 136 mEq/L 02/21/2016 Comp Metabolic Vss723 K 4.4 mEq/L 02/21/2016 Comp Metabolic Zjw302 CL 102 mEq/L 02/21/2016 Comp Metabolic Sgc886 CO2 29.0 mEq/L 02/21/2016 Comp Metabolic Lke920 ANION GAP 9 02/21/2016 Comp Metabolic Vqw703 GLUCOSE 118 mg/dL 02/21/2016 Comp Metabolic Mnd304 Creat 1.0 mg/dL 02/21/2016 Comp Metabolic Vsv626 eGFR 72 ml/min/1.73m2 02/21/2016 Comp Metabolic Ckt973 BUN 23 mg/dL 02/21/2016 Comp Metabolic Cgl973 B/C Ratio 22.1 Ratio 02/21/2016 Comp Metabolic Xkg827 CALCIUM 9.9 mg/dL 02/21/2016 Comp Metabolic Gmn760 ALK PHOS 57 U/L 02/21/2016 Comp Metabolic Ywx883 AST(SGOT) 17 U/L 02/21/2016 Comp Metabolic Woz646 ALT(SGPT) 19 U/L 02/21/2016 Comp Metabolic Vxm048 BILI T 0.6 mg/dL 02/21/2016 Comp Metabolic Tbk605 ALBUMIN 3.9 g/dL 02/21/2016 Comp Metabolic Apm678 TPRO 6.9 g/dL 02/21/2016 Comp Metabolic Qsc448 GLOB 3.0 g/dL 02/21/2016 Comp Metabolic Epj291 A/G Ratio 1.3 Ratio 02/21/2016 Comp Metabolic Alo805 Osmo 277 mOsmo 02/21/2016 Pt Chv7558 PT 19.8 seconds 02/21/2016 Pt Vqo0154 INR 1.8 02/21/2016 Pt Vuw0217 Low Intensity - 1.5-2.0 02/21/2016 Pt Dcc1593 Mod intensity - 2.0-3.0 02/21/2016 Pt Rkv0002 Hi intensity - 3.0-4.0 02/21/2016 Pt Hot2419 PT 24.1 seconds 01/15/2016 Pt Yew5009 INR 2.3 01/15/2016 Pt Xum4586 Low Intensity - 1.5-2.0 01/15/2016 Pt Crh5625 Mod intensity - 2.0-3.0 01/15/2016 Pt Vgw0521 Hi intensity - 3.0-4.0 01/15/2016 Pt Zka3075 PT 26.5 seconds 01/03/2016 Pt Iym4702 INR 2.6 01/03/2016 Pt Xar1338 Low Intensity - 1.5-2.0 01/03/2016 Pt Nnu7053 Mod intensity - 2.0-3.0 01/03/2016 Pt Pht5834 Hi intensity - 3.0-4.0 01/03/2016 Pt Qev7150 PT 15.3 seconds 11/30/2015 Pt Hke4940 INR 1.3 11/30/2015 Pt Wwn4873 Low Intensity - 1.5-2.0 11/30/2015 Pt Haa0571 Mod intensity - 2.0-3.0 11/30/2015 Pt Pex1093 Hi intensity - 3.0-4.0 11/30/2015 Review of [...] Ears/Nose/Throat/Neck No dental pain Ears/Nose/Throat/Neck No dizziness 08/17/ 2016 Ears/Nose/Throat/Neck No dysphagia 2015 Ears/Nose/Throat/Neck No headache [...] Formatting Model/CDA Sections, Assigned to/Arabella Carballo CPT-4: 54284Nanrskl 01/04/2018 URINALYSIS NONAUTO W/O SCOPE CPT-4: 79567 11/07/2016 URINALYSIS NONAUTO W/O SCOPE CPT-4: 65668 02/26/2016 ADMIN INFLUENZA VIRUS VAC CPT-4: G0008 01/03/2016 FLU VACC 4 ARIANNA 3 YRS PLUS IM SNOMED CT: 93991717 CPT-4: 05356 01/03/2016 Vital Signs Date Vital 04/23/2018 Blood Pressure 1: 118/64 Code : 8480-6 BMI: 35.0 Code : 16377-5 Heart Rate 1 : 88 bpm Height: 5'4" SpO2: 96% Temperature: 36.3 (C) / 97.4 (F) Weight: 204 lbs 04/12/2018 Blood Pressure 1: 144/76 Code : 8480-6 BMI: 35.0 Code : 79983-6 Heart Rate 1 : 75 bpm Height: 5'4" SpO2: 98% Weight: 204 lbs 03/08/2018 Blood Pressure 1: 124/70 Code : 8480-6 Heart Rate 1: 84 bpm Height: 5'4" SpO2: 92% Weight: 03/02/2018 Blood Pressure 1: 138/76 Code : 8480-6 Heart Rate 1: 87 bpm Height: 5'4" SpO2: 98% Weight: 02/26/2018 Blood Pressure 1: 148/68 Code : 8480-6 BMI: 35.0 Code : 64710-0 Heart Rate 1 : 80 bpm Height: 5'4" SpO2: 97% Weight: 204 lbs 01/28/2018 Blood Pressure 1: 150/60 Code : 8480-6 Heart Rate 1: 91 bpm SpO2: 92% 12/29/2017 Blood Pressure 1: 144/62 Code : 8480-6 BMI: 34.7 Code : 13148-6 Heart Rate 1 : 73 bpm Height: 5'4" SpO2: 97% Weight: 202 lbs 09/29/2017 Blood Pressure 1: 132/80 Code : 8480-6 Heart Rate 1: 76 bpm SpO2: 97% Weight: 204 lbs 08/11/2017 Blood Pressure 1: 132/66 Code : 8480-6 BMI: 35.0 Code : 53403-0 Heart Rate 1 : 81 bpm Height: 5'4" SpO2: 96% Weight: 204 lbs 03/16/2017 Blood Pressure 1: 132/70 Code : 8480-6 BMI: 34.5 Code : 77403-0 Heart Rate 1 : 78 bpm Height: 5'4" SpO2: 98% Weight: 201 lbs 12/15/2016 Blood Pressure 1: 140/80 Code : 8480-6 BMI: 34.2 Code : 54104-8 Heart Rate 1 : 69 bpm Height: 5'4" SpO2: 98% Weight: 199 lbs 11/07/2016 Blood Pressure 1: 158/82 Code : 8480-6 BMI: 34.7 Code : 80876-6 Heart Rate 1 : 76 bpm Height: 5'4" SpO2: 98% Weight: 202 lbs 10/14/2016 Blood Pressure 1: 140/80 Code : 8480-6 BMI: 34.0 Code : 78327-5 Heart Rate 1 : 79 bpm Height: 5'4" SpO2: 96% Weight: 198 lbs 09/10/2016 Blood Pressure 1: 158/80 Code : 8480-6 BMI: 34.3 Code : 98583-1 Heart Rate 1 : 75 bpm Height: 5'4" SpO2: 98% Weight: 200 lbs 07/08/2016 Blood Pressure 1: 160/74 Code : 8480-6 BMI: 35.2 Code : 82625-1 Heart Rate 1 : 94 bpm Height: 5'4" SpO2: 97% Weight: 205 lbs 06/16/2016 Blood Pressure 1: 138/76 Code : 8480-6 BMI: 35.0 Code : 20501-3 Heart Rate 1 : 68 bpm Height: 5'4" SpO2: 98% Weight: 204 lbs 01/31/2016 Blood Pressure 1: 136/64 Code : 8480-6 BMI: 33.6 Code : 23558-2 Heart Rate 1 : 92 bpm Height: 5'4" SpO2: 98% Weight: 196 lbs 01/03/2016 Blood Pressure 1: 142/68 Code : 8480-6 BMI: 33.8 Code : 99147-1 Heart Rate 1 : 80 bpm Height: 5'4" SpO2: 97% Weight: 197 lbs 11/30/2015 Blood Pressure 1: 158/80 Code : 8480-6 Heart Rate 1: 83 bpm SpO2: 98% 11/21/2015 Blood Pressure 1: 172/80 Code : 8480-6 BMI: 32.8 Code : 62631-2 Heart Rate 1 : 87 bpm Height: [...] data Encounters Encounter Performer Location Codes Date ([id number]) [id number] EST. PATIENT, LEVEL III Diagnosis: Cough[ICD10: R05] Diagnosis: Acute upper respiratory infection, unspecified[ICD10: J06.9] Kelli Gallardo MD, [facility] CPT-4: 16717 04/23/2018 ([id number]) [id number] EST. 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 PATIENT, LEVEL II Diagnosis: Cellulitis of right lower limb[ICD10: L03.115] Kelli Gallardo MD, [facility] CPT-4: 79301 03/08/2018 ([id number]) Miscellaneous no charge Diagnosis: Cellulitis of right lower limb[ICD10: L03.115] Kelli Gallardo MD, [facility] CPT-4: 23592 03/02/2018 ([id number]) [id number] EST. PATIENT, LEVEL III Diagnosis: Cellulitis of right lower limb[ICD10: L03.115] Kelli Gallardo MD, [facility] CPT-4: 30978 02/26/2018 [id number] EST. PATIENT, LEVEL III Diagnosis: Cellulitis of left lower limb[ICD10: L03.116] Octavia Gallardo MD, [facility] CPT-4: 99302 01/28/2018 ([id number]) [id number] EST. PATIENT, LEVEL III Diagnosis: Essential (primary) hypertension[ICD10: I10] Diagnosis: 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[ICD10: Z79.01] Diagnosis: Nocturia[ICD10: R35.1] Pamela Gallardo MD, [facility] CPT-4: 60123 12/29/2017 ([id number]) 53910 EST. PATIENT, LEVEL IV Diagnosis: Essential (primary) hypertension[ICD10: I10] Diagnosis: Urge incontinence[ICD10: N39.41] Pamela Gallardo MD, [facility] CPT-4: 40016 09/29/2017 ([id number]) [id number] EST. 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 PATIENT, LEVEL IV Diagnosis: Essential (primary) hypertension[ICD10: I10] Diagnosis: Mixed hyperlipidemia[ICD10: E78.2] Diagnosis: 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[ICD10: Z79.01] Pamela Gallardo MD, [facility] CPT-4: 18184 12/15/2016 ([id number]) 62895 EST. 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 PATIENT, LEVEL IV Diagnosis: Essential (primary) hypertension[ICD10: I10] Diagnosis: Mixed hyperlipidemia[ICD10: E78.2] Diagnosis: Gross hematuria[ICD10: R31.0] Pamela Gallardo MD, [facility] CPT- 4: 99147 10/14/2016 ([id number]) 41439 EST. PATIENT, LEVEL IV Diagnosis: Essential (primary) hypertension[ICD10: I10] Diagnosis: 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[ICD10: Z79.01] Diagnosis: Mixed hyperlipidemia[ICD10: E78.2] Pamela Gallardo MD, [facility] CPT-4: 13003 09/10/2016 [id number] EST. PATIENT, LEVEL III Diagnosis: Gross hematuria[ICD10: R31.0] Octavia Gallardo MD, [facility] CPT-4 : 35441 07/08/2016 ([id number]) 37701 EST. PATIENT, LEVEL IV Diagnosis: Essential (primary) hypertension[ICD10: I10] Diagnosis: Mixed hyperlipidemia[ICD10: E78.2] Diagnosis: 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[ICD10: Z79.01] Pamela Gallardo MD, [facility] CPT-4: 91551 06/16/2016 ([id number]) 17766 EST. PATIENT, LEVEL IV Diagnosis: Essential (primary) hypertension[ICD10: I10] Diagnosis: Mixed hyperlipidemia[ICD10: E78.2] [facility] CPT-4: 07699 01/31/2016 ([id number]) 71870 EST. PATIENT, LEVEL IV Diagnosis: Essential (primary) hypertension[ICD10: I10] Diagnosis: Mixed hyperlipidemia[ICD10: E78.2] Diagnosis: Encounter for immunization[ICD10: Z23] [facility] CPT-4: 29933 01/03/2016 ([id number]) Miscellaneous no charge Diagnosis: Essential (primary) hypertension[ICD10: I10] Octavia Gallardo MD, [facility] CPT-4: 70137 11/30/2015 ([id number]) OFFICE VISIT, NEW - LEVEL 4 Diagnosis: Essential (primary) hypertension[ICD10: I10] Diagnosis: Mixed hyperlipidemia[ICD10: E78.2] Diagnosis: Impacted cerumen, bilateral[ICD10: H61.23] Pamela Gallardo MD, [facility] CPT-4: 18220 11/21/2015 Plan of Care Planned Activity Notes Codes Status Date Visit Plan: URI - Pt advised to increase fluids, vitamin C. Discussed natural and expected course of this diagnosis and need to alert me if symptoms do not follow expected course, or if any worse. RX sent to patient' s pharmacy. 04/23/2018 Patient Education: Patient Medication Summary Completed [...] 3.5. 04/12/2018 Appointment: Pamela Gallardo WPtel: [phone] [facility] (15 min) Moderate 04/12/2018 Patient Education: Patient Medication Summary Completed 04/12/2018 Visit Plan: Ulcer of right leg -healed-no further treatment indicated 03/08/2018 Appointment: Kelli Mccullough WPtel: [facility]5 [phone] (15 min) Moderate 03/08/2018 Patient Education: Patient Medication Summary Completed 03/08/2018 Visit Plan: Ulcer of leg -improved-continue wound care as directed-follow up in 1 week, sooner if needed 03/02/2018 Appointment: Kelli Mccullough WPtel: [facility]3 [phone] (15 min) Moderate 03/02/2018 Patient Education: Patient Medication Summary Completed 03/02/2018 Visit Plan: Cellulitis - continue with oral antibiotics as previously directed, return to clinic as previously directed, call for acute change in symptoms, worsening redness, warmth, discharge. 02/26/2018 Appointment: Kelli Mccullough WPtel: [facility]3 [phone] (15 min) Moderate 02/26/2018 Patient Education: Patient Medication Summary Completed 02/26/2018 Visit Plan: Cellulitis - pt is to follow up with his surgeon - continue with oral antibiotics as previously directed, return to clinic as previously directed, call for acute change in symptoms, worsening redness, warmth, discharge. 01/28/2018 Appointment: Octavia Zarate WPtel: [facility] [place] (15 min) Moderate 01/28/2018 Patient Education: [...] supportive care. 12/29/2017 Appointment: Pamela Gallardo WPtel: [facility]5 [facility] (15 min) Moderate 12/29/2017 Patient Education: Patient Medication Summary Completed 12/29/2017 Appointment: Flora Gallardoy WPtel: [facility]5 [facility] Same Day appointments 12/16/2017 Visit Plan: [...] the pharmacy 09/29/2017 Appointment: Pamela Gallardo WPtel: [facility]5 [facility] (15 min) Moderate 09/29/2017 Patient Education: [...] serially - last INR good 08/11/2017 Appointment: Flora Gallardoy WPtel: [facility]2 [facility] (15 min) Moderate 08/11/2017 Patient Education: Patient Medication Summary Completed 08/11/2017 Appointment: Pamela Gallardo WPtel: [facility]5 [facility] (15 min) Moderate 08/06/2017 Appointment: Pamela Gallardo WPtel: [address] [place], [place] [id number] (15 min) Moderate 08/04/2017 Visit Plan: Hypertension [...] chronic but stable, monitor symptoms. 03/16/2017 Appointment: CrestonFlora trany WPtel: [address] [place], [place] [phone] (15 min) Moderate 03/16/2017 Patient Education: Patient Medication Summary Completed 03/16/2017 Patient Education: Obesity Completed 03/16/2017 Appointment: CrestonFlora trany WPtel: [address] [place], [place] [phone] (15 min) Moderate 12/30/2016 Visit Plan: Hypertension [...] labs today. 12/15/2016 Appointment: Pamela Gallardo WPtel: [phone] [facility] (15 min) Moderate 12/15/2016 Patient Education: Patient Medication Summary Completed 12/15/2016 Visit Plan: Iron deficiency ibbcit-dmsn-upvrxw bleeding- INR has been stable-continue multivitamin with iron daily Hematuria-3+ blood in urine-check PT/INR today-culture urine 11/07/2016 Appointment: Kelli Mccullough WPtel: [phone] [phone] [place] (15 min) Moderate 11/07/2016 Patient Education: [...] medications. 10/14/2016 Appointment: Pamela Gallardo WPtel: [phone] [facility] [place] (15 min) Moderate 10/14/2016 Patient Education: Patient Medication Summary Completed 10/14/2016 Patient Education: Obesity Completed 10/14/2016 [facility] [place] [phone] [place] (15 min) Moderate 10/09/2016 Visit Plan: [...] or concerns. 07/08/2016 Appointment: Oct[facility]arate [facility]Ptel[facility] [place] (15 min) Moderate 07/08/2016 Patient [...] coumadin. 06/16/2016 Appointment: Pamela Gallardo WPtel: [phone] [facility] (15 min) Moderate 06/16/2016 Patient Education: Patient Medication Summary Completed 06/16/2016 Patient Education: Obesity Completed 06/16/2016 Appointment: Pamela Gallardo WPtel: [phone] [facility] (15 min) Moderate 05/22/2016 Patient Education: [...] medications. 01/31/2016 [facility]ment: [phone] (15 min) Moderate 01/31/2016 Patient Education: Patient [...] to medications. 01/03/2016 App[facility]ment: [phone] (15 min) Moderate 01/03/2016 Patient Education: Patient [...] medications. 11/21/2015 Appointment: [phone] [facility] 11/21/2015 Patient Education: Patient Medication [...] Nocturia - continue with supportive care. . Cellulitis - pt is to follow [...] to have chemotherapy through [facility] - Dr. Sheafield. Chronic Anticoagulant use - Pt has been counseled about the anticoagulant, need for serial monitoring, and need for the pt to alert the physician as to any new bruising, or acute bleeding. Therapeutic goal for INR is between 2.0 and 3.5. blood pressure is uncontrolled - i recommend [...] to assure normal liver response to medications. increase the coumadin to 5mg on tuesdays, [...] worsen, or with any questions or concerns. vesicare 10mg one pill nightly - call [...] it to the pharmacy . Iron deficiency xaoyfv-smkr-ylybgo bleeding-INR has been stable-continue multivitamin with iron [...] - continue with coumadin. . Ulcer of right leg -healed-no further treatment indicated . Hypertension - well controlled - continue [...]
--- OUTSIDE RECORDS SUMMARY | 2018-07-09 11:43 | XMS REPORT | CCD ---
Author Author [facility] Organization [facility] Address [address] [place] [address] Phone Care Team Providers Care Team Psychologist Name Role Phone PP Unavailable CCM Unavailable Summary Purpose Interface Exchange Insurance Providers Payer name Policy type / Coverage type Covered republican ID Effective Begin Date Effective End Date WPS Medicare Part B Medicare Part B [id number] Unknown [facility] Medicare Part B [id number] Unknown Family history Father Diagnosis Age At [...] Unknown Retired 11/21/[address]: 8823020 Former smoker Quit September 2014 11/21/[address]: 116269 Currently drinks alcohol 11/21/2015 Has the patient [...] hypertension ICD-9: 401.1 ICD-10: I10 01/30/2016 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 Start the day after stopping coumadin for procedure. Hold the day of surgery. The day after surgery resume BID x 4 days. Vesicare 10 mg tablet RxNorm: 602138 1 Tablet(s) PO QPM 2017 No Stop Date Active lisinopril 20 mg tablet RxNorm: 901088 TAKE ONE TABLET BY MOUTH ONCE DAILY 06/23/2017 No Stop Date Active warfarin 5 mg tablet RxNorm: 579567 1 Tablet(s) PO UD on Thursday and - goal for INR is 2.3 02/11/2017 10/08/2017 Inactive lisinopril 20 mg tablet RxNorm: 702696 1 Tablet(s) PO daily 06/22/2017 Inactive warfarin 7.5 mg tablet RxNorm: 973549 1 Tablet(s) PO daily except Thu10/14/2016 10/08/2017 Inactive warfarin 5 mg tablet RxNorm: 580860 1 Tablet(s) PO UD on Thursday and - goal for INR is 2.3 10/14/2016 02/10/2017 Inactive warfarin 5 mg tablet RxNorm: 148929 1 Tablet(s) PO UD on Thursday10/14/2016 10/13/2016 Inactive warfarin 7.5 mg tablet RxNorm: 871609 1 Tablet(s) PO daily 10/13/2016 Inactive warfarin 7.5 mg tablet RxNorm: 619909 1 Tablet(s) PO daily 03/201708/17/2016 Inactive Norvasc 5 mg tablet RxNorm: 379108 1 Tablet(s) PO QPM 201512/14/2016 Inactive aspirin 81 mg chewable tablet RxNorm: 824906 1 Tablet(s) PO daily No Start Date Active amlodipine 2.5 mg tablet RxNorm: 356427 1 Tablet(s) PO daily No Start Date Active PreserVision AREDS 2 oral RxNorm: 9396002 oral No Start Date Active Citracal + D3 (calcium phosphate) oral RxNorm: 7792096 oral No Start Date Active Centrum Silver tablet RxNorm: 1 Tablet(s) PO daily No Start Date Active Colace 100 mg capsule RxNorm: 2390368 1-2 Capsule(s) PO as needed constipation No Start Date Active Imodium A-D 2 mg tablet RxNorm: 288267 1 Tablet(s) PO as needed diarrhea No Start Date Active atorvastatin 20 mg tablet RxNorm: 844684 1 Tablet(s) PO daily No Start Date Active carvedilol 6.25 mg tablet RxNorm: 815177 1 Tablet(s) PO BID No Start Date Active Lupron Depot intramuscular RxNorm: 220789 intramuscular No Start Date Active Lovenox 40 mg/0.4 mL subcutaneous syringe RxNorm: 806557 1 Milliliter(s) SQ BID No Start Date 10/13/2017 Inactive Holding coumadin x 5 days. Start the day after stopping coumadin for procedure. Hold the day of surgery. The day after surgery resume BID x 4 days. warfarin 5 mg tablet RxNorm: 633387 1 Tablet(s) PO every other day No Start Date 10/13/2016 Inactive warfarin 7.5 mg tablet RxNorm: 417489 1 Tablet(s) PO every other day No Start Date 07/15/2016 Inactive lisinopril 20 mg tablet RxNorm: 311736 1 Tablet(s) PO daily No Start Date 12/28/2016 Inactive clopidogrel 75 mg tablet RxNorm: 218621 1 Tablet(s) PO daily No Start Date 03/10/2016 Inactive Medication Administered No Medication Administered data Immunizations Vaccine Codes Date Status Influenza CVX: 141 01/04/2018 completed Influenza CVX: 141 01/03/2016 completed Assessments Condition Codes Effective Dates Personal history of malignant neoplasm of prostate ICD-10: Z85.46 ICD-9: V10.46 04/12/2018 Malignant neoplasm of prostate ICD-10: C61 ICD-9: 185 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: 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.01 ICD-9: [...] Reason For Visit Effective Dates Notes hypertension 04/12/2018 skin lesion 03/08/2018 skin lesion 03/02/2018 skin lesion 02/26/2018 foot pain 01/28/2018 vaccination against influenza 01/04/2018 nocturia 12/29/2017 Hospital Follow Up 09/29/2017 hypertension 08/11/2017 hypertension 03/16/2017 hypertension 12/15/2016 anemia 11/07/2016 hypertension 10/14/2016 hypertension 09/10/2016 hematuria 07/08/2016 hypertension 06/16/2016 hypertension 01/31/2016 hypertension 01/03/2016 hypertension 11/21/2015 Results Observation Observation Code Item Item Code Result Date Pt Iyb2154 PT 28.0 seconds 04/12/2018 Pt Qks9523 INR 2.7 04/12/2018 Pt Yss8916 Low Intensity - 1.5-2.0 04/12/2018 Pt Tqe9434 Mod intensity - 2.0-3.0 04/12/2018 Pt Yaw5936 Hi intensity - 3.0-4.0 04/12/2018 Pt Tsi9228 PT 24.4 seconds 03/03/2018 Pt Ukk0943 INR 2.2 03/03/2018 Pt Sua8497 Low Intensity - 1.5-2.0 03/03/2018 Pt Uvf5834 Mod intensity - 2.0-3.0 03/03/2018 Pt Ylm3430 Hi intensity - 3.0-4.0 03/03/2018 Pt Vxv7829 PT 28.9 seconds 02/15/2018 Pt Mjo5869 INR 2.8 02/15/2018 Pt Ocp8846 Low Intensity - 1.5-2.0 02/15/2018 Pt Sdu4398 Mod intensity - 2.0-3.0 02/15/2018 Pt Tkj3395 Hi intensity - 3.0-4.0 02/15/2018 Pt Huv6856 PT 27.2 seconds 02/02/2018 Pt Fag5253 INR 2.6 02/02/2018 Pt Gpc8223 Low Intensity - 1.5-2.0 02/02/2018 Pt Cxq1193 Mod intensity - 2.0-3.0 02/02/2018 Pt Xap7820 Hi intensity - 3.0-4.0 02/02/2018 Pt Ssl2378 PT 18.2 seconds 01/28/2018 Pt Grj1388 INR 1.6 01/28/2018 Pt Pgq3199 Low Intensity - 1.5-2.0 01/28/2018 Pt Dat1035 Mod intensity - 2.0-3.0 01/28/2018 Pt Lsz8703 Hi intensity - 3.0-4.0 01/28/2018 Pt Zse0870 PT 19.8 seconds 01/22/2018 Pt Cin1330 INR 1.7 01/22/2018 Pt Fge0732 Low Intensity - 1.5-2.0 01/22/2018 Pt Dek4478 Mod intensity - 2.0-3.0 01/22/2018 Pt Nie4425 Hi intensity - 3.0-4.0 01/22/2018 Pt Vki4829 PT 38.3 seconds 01/15/2018 Pt Qag7781 INR 3.8 01/15/2018 Pt Yzl7953 Low Intensity - 1.5-2.0 01/15/2018 Pt Efc8989 Mod intensity - 2.0-3.0 01/15/2018 Pt Jod1233 Hi intensity - 3.0-4.0 01/15/2018 Pt Glc6668 PT 27.1 seconds 01/05/2018 Pt Mjw3651 INR 2.5 01/05/2018 Pt Txj1296 Low Intensity - 1.5-2.0 01/05/2018 Pt Ezy9968 Mod intensity - 2.0-3.0 01/05/2018 Pt Gon0479 Hi intensity - 3.0-4.0 01/05/2018 Pt Zix6241 PT 27.2 seconds 12/25/2017 Pt Rsq8884 INR 2.5 12/25/2017 Pt Kid2900 Low Intensity - 1.5-2.0 12/25/2017 Pt Tyh6701 Mod intensity - 2.0-3.0 12/25/2017 Pt Qwu2335 Hi intensity - 3.0-4.0 12/25/2017 Pt Kch8285 PT 22.2 seconds 12/09/2017 Pt Fkh7047 INR 2.0 12/09/2017 Pt Rwe5620 Low Intensity - 1.5-2.0 12/09/2017 Pt Wgi2708 Mod intensity - 2.0-3.0 12/09/2017 Pt Fic0094 Hi intensity - 3.0-4.0 12/09/2017 Pt Fke5824 PT 20.5 seconds 11/27/2017 Pt Ivf6190 INR 1.8 11/27/2017 Pt Ayz2111 Low Intensity - 1.5-2.0 11/27/2017 Pt Ysn2885 Mod intensity - 2.0-3.0 11/27/2017 Pt Qza5702 Hi intensity - 3.0-4.0 11/27/2017 Pt Eve9050 PT 16.8 seconds 11/23/2017 Pt Xvc4373 INR 1.4 11/23/2017 Pt Iac6121 Low Intensity - 1.5-2.0 11/23/2017 Pt Jou6151 Mod intensity - 2.0-3.0 11/23/2017 Pt Quj1429 Hi intensity - 3.0-4.0 11/23/2017 Pt Dit6618 PT 13.4 seconds 11/20/2017 Pt Lop8404 INR 1.1 11/20/2017 Pt Kcj4694 Low Intensity - 1.5-2.0 11/20/2017 Pt Efo6013 Mod intensity - 2.0-3.0 11/20/2017 Pt Jle5233 Hi intensity - 3.0-4.0 11/20/2017 Pt Fwd2412 PT 29.3 seconds 09/22/2017 Pt Rea1314 INR 2.7 09/22/2017 Pt Ssp6289 Low Intensity - 1.5-2.0 09/22/2017 Pt Pon6916 Mod intensity - 2.0-3.0 09/22/2017 Pt Ovo7249 Hi intensity - 3.0-4.0 09/22/2017 Pt Vfr9665 PT 24.6 seconds 08/27/2017 Pt Kef5149 INR 2.2 08/27/2017 Pt Dto1870 Low Intensity - 1.5-2.0 08/27/2017 Pt Gvq6904 Mod intensity - 2.0-3.0 08/27/2017 Pt Yzq2791 Hi intensity - 3.0-4.0 08/27/2017 Pt Xbf0522 PT 24.9 seconds 08/03/2017 Pt Duc1444 INR 2.3 08/03/2017 Pt Yox5307 Low Intensity - 1.5-2.0 08/03/2017 Pt Gou8973 Mod intensity - 2.0-3.0 08/03/2017 Pt Ana5121 Hi intensity - 3.0-4.0 08/03/2017 Pt Iqb3050 PT 24.4 seconds 06/17/2017 Pt Aid7972 INR 2.2 06/17/2017 Pt Tli0338 Low Intensity - 1.5-2.0 06/17/2017 Pt Zpz8778 Mod intensity - 2.0-3.0 06/17/2017 Pt Scy5399 Hi intensity - 3.0-4.0 06/17/2017 Pt Gqc6403 PT 26.8 seconds 06/01/2017 Pt Hma5930 INR 2.5 06/01/2017 Pt Nsi5864 Low Intensity - 1.5-2.0 06/01/2017 Pt Kky2090 Mod intensity - 2.0-3.0 06/01/2017 Pt Mzu2073 Hi intensity - 3.0-4.0 06/01/2017 Pt Brc4133 PT 18.8 seconds 05/18/2017 Pt Kcn8344 INR 1.6 05/18/2017 Pt Xir9912 Low Intensity - 1.5-2.0 05/18/2017 Pt Fuv6261 Mod intensity - 2.0-3.0 05/18/2017 Pt Yhd9484 Hi intensity - 3.0-4.0 05/18/2017 Pt Wqx4446 PT 18.6 seconds 04/27/2017 Pt Pts7266 INR 1.6 04/27/2017 Pt Vqn6327 Low Intensity - 1.5-2.0 04/27/2017 Pt Rgt7110 Mod intensity - 2.0-3.0 04/27/2017 Pt Thb9260 Hi intensity - 3.0-4.0 04/27/2017 Pt Jwx0716 PT 26.1 seconds 04/13/2017 Pt Szp3412 INR 2.4 04/13/2017 Pt Sij1647 Low Intensity - 1.5-2.0 04/13/2017 Pt Vto0634 Mod intensity - 2.0-3.0 04/13/2017 Pt Vvv4881 Hi intensity - 3.0-4.0 04/13/2017 Comp Metabolic Gkn250 NA 140 mEq/L 03/17/2017 Comp Metabolic Kuc892 K 4.4 mEq/L 03/17/2017 Comp Metabolic Ebq364 CL 104 mEq/L 03/17/2017 Comp Metabolic Krr183 CO2 30.0 mEq/L 03/17/2017 Comp Metabolic Mhy885 ANION GAP 10 03/17/2017 Comp Metabolic Zua561 GLUCOSE 122 mg/dL 03/17/2017 Comp Metabolic Jrv662 Creat 0.9 mg/dL 03/17/2017 Comp Metabolic Ouf994 eGFR 82 ml/min/1.73m2 03/17/2017 Comp Metabolic Cqv071 BUN 22 mg/dL 03/17/2017 Comp Metabolic Tnz705 B/C Ratio 23.7 Ratio 03/17/2017 Comp Metabolic Upb399 CALCIUM 10.3 mg/dL 03/17/2017 Comp Metabolic Msw120 ALK PHOS 62 U/L 03/17/2017 Comp Metabolic Mxb692 AST(SGOT) 19 U/L 03/17/2017 Comp Metabolic Yye893 ALT(SGPT) 21 U/L 03/17/2017 Comp Metabolic Pcw443 BILI T 0.5 mg/dL 03/17/2017 Comp Metabolic Zqt575 ALBUMIN 4.1 g/dL 03/17/2017 Comp Metabolic Ied302 TPRO 6.9 g/dL 03/17/2017 Comp Metabolic Vme122 GLOB 2.8 g/dL 03/17/2017 Comp Metabolic Qky412 A/G Ratio 1.5 Ratio 03/17/2017 Comp Metabolic Xlz342 Osmo 284 mOsmo 03/17/2017 Lipid Ord30 CHOL [...] Ord30 C/HDL 2.1 Ratio 03/17/2017 Comp Metabolic Ina990 NA 140 mEq/L 03/17/2017 Comp Metabolic Fff684 K 4.4 mEq/L 03/17/2017 Comp Metabolic Iud493 CL 104 mEq/L 03/17/2017 Comp Metabolic Qzq119 CO2 30.0 mEq/L 03/17/2017 Comp Metabolic Aqf769 ANION GAP 10 03/17/2017 Comp Metabolic Vbq991 GLUCOSE 122 mg/dL 03/17/2017 Comp Metabolic Thh841 Creat 0.9 mg/dL 03/17/2017 Comp Metabolic Wvo808 eGFR 82 ml/min/1.73m2 03/17/2017 Comp Metabolic Dur511 BUN 22 mg/dL 03/17/2017 Comp Metabolic Eoc793 B/C Ratio 23.7 Ratio 03/17/2017 Comp Metabolic Hgb845 CALCIUM 10.3 mg/dL 03/17/2017 Comp Metabolic Azw946 ALK PHOS 62 U/L 03/17/2017 Comp Metabolic Tky193 AST(SGOT) 19 U/L 03/17/2017 Comp Metabolic Wjn187 ALT(SGPT) 21 U/L 03/17/2017 Comp Metabolic Wyx455 BILI T 0.5 mg/dL 03/17/2017 Comp Metabolic Xdz275 ALBUMIN 4.1 g/dL 03/17/2017 Comp Metabolic Pqn616 TPRO 6.9 g/dL 03/17/2017 Comp Metabolic Yyb347 GLOB 2.8 g/dL 03/17/2017 Comp Metabolic Ysi378 A/G Ratio 1.5 Ratio 03/17/2017 Comp Metabolic Kft971 Osmo 284 mOsmo 03/17/2017 Pt Fyp3033 PT 23.7 seconds 03/12/2017 Pt Dga4060 INR 2.1 03/12/2017 Pt Nag1832 Low Intensity - 1.5-2.0 03/12/2017 Pt Aqx8112 Mod intensity - 2.0-3.0 03/12/2017 Pt Naa8322 Hi intensity - 3.0-4.0 03/12/2017 Pt Hmv2811 PT 21.3 seconds 02/10/2017 Pt Bdy0539 INR 1.9 02/10/2017 Pt Nbh2327 Low Intensity - 1.5-2.0 02/10/2017 Pt Yul2755 Mod intensity - 2.0-3.0 02/10/2017 Pt Yex7292 Hi intensity - 3.0-4.0 02/10/2017 Pt Iwk6961 PT 21.4 seconds 01/27/2017 Pt Ylr1319 INR 1.9 01/27/2017 Pt Xnl6463 Low Intensity - 1.5-2.0 01/27/2017 Pt Mzt9230 Mod intensity - 2.0-3.0 01/27/2017 Pt Ghm2906 Hi intensity - 3.0-4.0 01/27/2017 Pt Mrd0710 PT 22.0 seconds 01/19/2017 Pt Pop7512 INR 1.9 01/19/2017 Pt Gav2056 Low Intensity - 1.5-2.0 01/19/2017 Pt Aky9901 Mod intensity - 2.0-3.0 01/19/2017 Pt Bgy9517 Hi intensity - 3.0-4.0 01/19/2017 Pt Ces2038 PT 28.3 seconds 01/05/2017 Pt Plp3456 INR 2.6 01/05/2017 Pt Fgw9903 Low Intensity - 1.5-2.0 01/05/2017 Pt Vkd2556 Mod intensity - 2.0-3.0 01/05/2017 Pt Pux4285 Hi intensity - 3.0-4.0 01/05/2017 Pt Cvb5993 PT 29.1 seconds 12/15/2016 Pt Dse3386 INR 2.7 12/15/2016 Pt Gby3931 Low Intensity - 1.5-2.0 12/15/2016 Pt Igo5240 Mod intensity - 2.0-3.0 12/15/2016 Pt Kql4921 Hi intensity - 3.0-4.0 12/15/2016 Urine Culture Ucult Preliminary NO Growth Day 1 11/10/2016 Urine Culture Ucult Complete NO Growth Day 2 11/10/2016 Pt Cxc7862 PT 23.7 seconds 11/07/2016 Pt Kny2609 INR 2.1 11/07/2016 Pt Zdw8300 Low Intensity - 1.5-2.0 11/07/2016 Pt Pyz7285 Mod intensity - 2.0-3.0 11/07/2016 Pt Teh6980 Hi intensity - 3.0-4.0 11/07/2016 Pt Tss4134 PT 27.1 seconds 10/13/2016 Pt Kgb1982 INR 2.7 10/13/2016 Pt Ics3103 Low Intensity - 1.5-2.0 10/13/2016 Pt Ane7054 Mod intensity - 2.0-3.0 10/13/2016 Pt Qgh1047 Hi intensity - 3.0-4.0 10/13/2016 Pt Bcs8056 PT 26.3 seconds 09/23/2016 Pt Fjv2139 INR 2.6 09/23/2016 Pt Gqn8551 Low Intensity - 1.5-2.0 09/23/2016 Pt Crd3584 Mod intensity - 2.0-3.0 09/23/2016 Pt Bhz0834 Hi intensity - 3.0-4.0 09/23/2016 Pt Cct9328 PT 20.4 seconds 09/09/2016 Pt Auk2387 INR 1.8 09/09/2016 Pt Bgx8754 Low Intensity - 1.5-2.0 09/09/2016 Pt Xbe7169 Mod intensity - 2.0-3.0 09/09/2016 Pt Vyb3375 Hi intensity - 3.0-4.0 09/09/2016 Pt Deq3070 PT 24.1 seconds 08/26/2016 Pt Fde2585 INR 2.3 08/26/2016 Pt Ery4137 Low Intensity - 1.5-2.0 08/26/2016 Pt Nqg7010 Mod intensity - 2.0-3.0 08/26/2016 Pt Scf1733 Hi intensity - 3.0-4.0 08/26/2016 Pt Jpi4095 PT 26.1 seconds 08/12/2016 Pt Vdp8891 INR 2.6 08/12/2016 Pt Mdq5407 Low Intensity - 1.5-2.0 08/12/2016 Pt Qjv0518 Mod intensity - 2.0-3.0 08/12/2016 Pt Kkt2986 Hi intensity - 3.0-4.0 08/12/2016 Pt Rit2154 PT 23.5 seconds 07/15/2016 Pt Ndx0264 INR 2.2 07/15/2016 Pt Cgy0802 Low Intensity - 1.5-2.0 07/15/2016 Pt Qyl7845 Mod intensity - 2.0-3.0 07/15/2016 Pt Iso4634 Hi intensity - 3.0-4.0 07/15/2016 Urine Culture Ucult Preliminary NO Growth Day 1 07/10/2016 Urine Culture Ucult Complete NO Growth Day 2 07/10/2016 Pt Xne5387 PT 27.9 seconds 06/30/2016 Pt Mfc9218 INR 2.8 06/30/2016 Pt Hho5394 Low Intensity - 1.5-2.0 06/30/2016 Pt Eww3270 Mod intensity - 2.0-3.0 06/30/2016 Pt Zgg9873 Hi intensity - 3.0-4.0 06/30/2016 Pt Koj7624 PT 23.7 seconds 06/12/2016 Pt Rno7553 INR 2.3 06/12/2016 Pt Krj7641 Low Intensity - 1.5-2.0 06/12/2016 Pt Nsj1525 Mod intensity - 2.0-3.0 06/12/2016 Pt Vki3646 Hi intensity - 3.0-4.0 06/12/2016 Pt Qkc9536 PT 36.5 seconds 06/06/2016 Pt Aon6569 INR 4.0 06/06/2016 Pt Jtv7827 Low Intensity - 1.5-2.0 06/06/2016 Pt Mrr0128 Mod intensity - 2.0-3.0 06/06/2016 Pt Koh5295 Hi intensity - 3.0-4.0 06/06/2016 Tibc Ord40 Iron 76 ug/dl 05/05/2016 Tibc Ord40 UIBC 210 ug/dL 05/05/2016 Tibc Ord40 TIBC 286 ug/dL 05/05/2016 Tibc Ord40 Fe-%Sat 26.6 % 05/05/2016 Pt Wsq4905 PT 29.0 seconds 05/05/2016 Pt Rrs7911 INR 2.9 05/05/2016 Pt Xhk1657 Low Intensity - 1.5-2.0 05/05/2016 Pt Ecq2613 Mod intensity - 2.0-3.0 05/05/2016 Pt Tel8529 Hi intensity - 3.0-4.0 05/05/2016 Ferritin Ord22 FERRITIN 32.7 ng/mL 05/05/2016 Pt Cpu9774 PT 31.1 seconds 04/08/2016 Pt Bqb0346 INR 3.2 04/08/2016 Pt Bip6224 Low Intensity - 1.5-2.0 04/08/2016 Pt Ico6893 Mod intensity - 2.0-3.0 04/08/2016 Pt Eki7475 Hi intensity - 3.0-4.0 04/08/2016 Cbc With [...] 32.4 pg 03/24/2016 Cbc With Differential Ord2 [place]% 11.3 % 03/24/2016 Cbc With Differential Ord2 [...] 2.29 K/ul 03/24/2016 Cbc With Differential Ord2 [place] ABS# 0.8 K/ul 03/24/2016 Cbc With Differential Ord2 Eos ABS# 0.5 K/ul 03/24/2016 Cbc With Differential Ord2 Baso ABS# 0.0 K/ul 03/24/2016 Pt Iar8952 PT 17.3 seconds 03/24/2016 Pt Rxh2788 INR 1.5 03/24/2016 Pt Pqq4542 Low Intensity - 1.5-2.0 03/24/2016 Pt Hiz8347 Mod intensity - 2.0-3.0 03/24/2016 Pt Lnc6630 Hi intensity - 3.0-4.0 03/24/2016 Pt Npc2123 PT 17.8 seconds 03/12/2016 Pt Wcu8417 INR 1.5 03/12/2016 Pt Kjl0326 Low Intensity - 1.5-2.0 03/12/2016 Pt Hwo3097 Mod intensity - 2.0-3.0 03/12/2016 Pt Ufk8552 Hi intensity - 3.0-4.0 03/12/2016 Urine Culture Ucult Complete NO Growth Day 2 02/29/2016 Urine Culture Ucult Preliminary NO Growth Day 1 02/29/2016 Lipid Ord30 CHOL 129 mg/dL 02/21/2016 Lipid Ord30 HDL 59.0 mg/dl 02/21/2016 Lipid Ord30 TRIG 90 mg/dL 02/21/2016 Lipid Ord30 LDL 52 mg/dL 02/21/2016 Lipid Ord30 C/HDL 2.2 Ratio 02/21/2016 Comp Metabolic Tyu148 NA 136 mEq/L 02/21/2016 Comp Metabolic Fjo772 K 4.4 mEq/L 02/21/2016 Comp Metabolic Rzt958 CL 102 mEq/L 02/21/2016 Comp Metabolic Euk079 CO2 29.0 mEq/L 02/21/2016 Comp Metabolic Ece815 ANION GAP 9 02/21/2016 Comp Metabolic Yfs466 GLUCOSE 118 mg/dL 02/21/2016 Comp Metabolic Aun939 Creat 1.0 mg/dL 02/21/2016 Comp Metabolic Euk165 eGFR 72 ml/min/1.73m2 02/21/2016 Comp Metabolic Rix847 BUN 23 mg/dL 02/21/2016 Comp Metabolic Zso863 B/C Ratio 22.1 Ratio 02/21/2016 Comp Metabolic Yqe536 CALCIUM 9.9 mg/dL 02/21/2016 Comp Metabolic Wwc035 ALK PHOS 57 U/L 02/21/2016 Comp Metabolic Lqs902 AST(SGOT) 17 U/L 02/21/2016 Comp Metabolic Fih398 ALT(SGPT) 19 U/L 02/21/2016 Comp Metabolic Bex174 BILI T 0.6 mg/dL 02/21/2016 Comp Metabolic Srg553 ALBUMIN 3.9 g/dL 02/21/2016 Comp Metabolic Yev538 TPRO 6.9 g/dL 02/21/2016 Comp Metabolic Rre853 GLOB 3.0 g/dL 02/21/2016 Comp Metabolic Ele232 A/G Ratio 1.3 Ratio 02/21/2016 Comp Metabolic Tie439 Osmo 277 mOsmo 02/21/2016 Pt Bcr0500 PT 19.8 seconds 02/21/2016 Pt Eoo5466 INR 1.8 02/21/2016 Pt Dnp2277 Low Intensity - 1.5-2.0 02/21/2016 Pt Cnc6729 Mod intensity - 2.0-3.0 02/21/2016 Pt Dlx3875 Hi intensity - 3.0-4.0 02/21/2016 Pt Ink6169 PT 24.1 seconds 01/15/2016 Pt Pie0651 INR 2.3 01/15/2016 Pt Gsn5772 Low Intensity - 1.5-2.0 01/15/2016 Pt Pyw4572 Mod intensity - 2.0-3.0 01/15/2016 Pt Ozy2198 Hi intensity - 3.0-4.0 01/15/2016 Pt Ysi0490 PT 26.5 seconds 01/03/2016 Pt Scv5677 INR 2.6 01/03/2016 Pt Wdp2271 Low Intensity - 1.5-2.0 01/03/2016 Pt Jpi6453 Mod intensity - 2.0-3.0 01/03/2016 Pt Thr8546 Hi intensity - 3.0-4.0 01/03/2016 Pt Eex5508 PT 15.3 seconds 11/30/2015 Pt Hcp2425 INR 1.3 11/30/2015 Pt Ttw5909 Low Intensity - 1.5-2.0 11/30/2015 Pt Rgx3107 Mod intensity - 2.0-3.0 11/30/2015 Pt Jqn8351 Hi intensity - 3.0-4.0 11/30/2015 Review of Systems System Result Effective Dates Constitutional No recent illness 2018 Constitutional No [...] Formatting Model/CDA Sections, Assigned to/Arabella Carballo CPT-4: [id number] 01/04/2018 URINALYSIS NONAUTO W/O SCOPE CPT-4: 79660 11/07/2016 URINALYSIS NONAUTO W/O SCOPE CPT-4: 79106 02/26/2016 ADMIN INFLUENZA VIRUS VAC CPT-4: G0008 01/03/2016 FLU VACC 4 ARIANNA 3 YRS PLUS IM SNOMED CT: [id number] CPT-4: 86362 01/03/2016 Vital Signs Date Vital 04/12/2018 Blood Pressure 1: 144/76 Code : 8480-6 BMI: 35.0 Code : 85685-3 Heart Rate 1 : 75 bpm Height: 5'4" SpO2: 98% Weight: 204 lbs 03/08/2018 Blood Pressure 1: 124/70 Code : 8480-6 Heart Rate 1: 84 bpm Height: 5'4" SpO2: 92% Weight: 03/02/2018 Blood Pressure 1: 138/76 Code : 8480-6 Heart Rate 1: 87 bpm Height: 5'4" SpO2: 98% Weight: 02/26/2018 Blood Pressure 1: 148/68 Code : 8480-6 BMI: 35.0 Code : 31234-1 Heart Rate 1 : 80 bpm Height: 5'4" SpO2: 97% Weight: 204 lbs 01/28/2018 Blood Pressure 1: 150/60 Code : 8480-6 Heart Rate 1: 91 bpm SpO2: 92% 12/29/2017 Blood Pressure 1: 144/62 Code : 8480-6 BMI: 34.7 Code : 36732-2 Heart Rate 1 : 73 bpm Height: 5'4" SpO2: 97% Weight: 202 lbs 09/29/2017 Blood Pressure 1: 132/80 Code : 8480-6 Heart Rate 1: 76 bpm SpO2: 97% Weight: 204 lbs 08/11/2017 Blood Pressure 1: 132/66 Code : 8480-6 BMI: 35.0 Code : 72014-1 Heart Rate 1 : 81 bpm Height: 5'4" SpO2: 96% Weight: 204 lbs 03/16/2017 Blood Pressure 1: 132/70 Code : 8480-6 BMI: 34.5 Code : 40410-3 Heart Rate 1 : 78 bpm Height: 5'4" SpO2: 98% Weight: 201 lbs 12/15/2016 Blood Pressure 1: 140/80 Code : 8480-6 BMI: 34.2 Code : 22993-0 Heart Rate 1 : 69 bpm Height: 5'4" SpO2: 98% Weight: 199 lbs 11/07/2016 Blood Pressure 1: 158/82 Code : 8480-6 BMI: 34.7 Code : 60414-7 Heart Rate 1 : 76 bpm Height: 5'4" SpO2: 98% Weight: 202 lbs 10/14/2016 Blood Pressure 1: 140/80 Code : 8480-6 BMI: 34.0 Code : 97712-6 Heart Rate 1 : 79 bpm Height: 5'4" SpO2: 96% Weight: 198 lbs 09/10/2016 Blood Pressure 1: 158/80 Code : 8480-6 BMI: 34.3 Code : 97332-0 Heart Rate 1 : 75 bpm Height: 5'4" SpO2: 98% Weight: 200 lbs 07/08/2016 Blood Pressure 1: 160/74 Code : 8480-6 BMI: 35.2 Code : 38149-7 Heart Rate 1 : 94 bpm Height: 5'4" SpO2: 97% Weight: 205 lbs 06/16/2016 Blood Pressure 1: 138/76 Code : 8480-6 BMI: 35.0 Code : 67001-5 Heart Rate 1 : 68 bpm Height: 5'4" SpO2: 98% Weight: 204 lbs 01/31/2016 Blood Pressure 1: 136/64 Code : 8480-6 BMI: 33.6 Code : 46425-0 Heart Rate 1 : 92 bpm Height: 5'4" SpO2: 98% Weight: 196 lbs 01/03/2016 Blood Pressure 1: 142/68 Code : 8480-6 BMI: 33.8 Code : 17953-0 Heart Rate 1 : 80 bpm Height: 5'4" SpO2: 97% Weight: 197 lbs 11/30/2015 Blood Pressure 1: 158/80 Code : 8480-6 Heart Rate 1: 83 bpm SpO2: 98% 11/21/2015 Blood Pressure 1: 172/80 Code : 8480-6 BMI: 32.8 Code : 96804-1 Heart Rate 1 : 87 bpm Height: 5'4" SpO2: 98% Weight: 191 lbs Functional Status No Functional Status data History of Present Illness Symptom Name Status Result Effective Date Notes Quality primary hypertension 04/12/2018 None Onset and [...] data Encounters Encounter Performer Location Codes Date ([id number]) [id number] EST. PATIENT, LEVEL IV Diagnosis: Essential (primary) hypertension[ICD10: I10] Diagnosis: Malignant neoplasm of prostate[ICD10: C61] Diagnosis: Personal history of malignant neoplasm of prostate[ICD10: Z85.46] Diagnosis: custodial (current) use of anticoagulants[ICD10: Z79.01] [facility] CPT-4: 62926 04/12/2018 ([id number]) 26776 EST. PATIENT, LEVEL II Diagnosis: Cellulitis of right lower limb[ICD10: L03.115] Kelli Gallardo MD [facility] CPT-4: 91543 03/08/2018 ([id number]) Miscellaneous no charge Diagnosis: Cellulitis of right lower limb[ICD10: L03.115] Kelli Gallardo MD [facility] CPT-4: 68806 03/02/2018 ([id number]) 50247 EST. PATIENT, LEVEL III Diagnosis: Cellulitis of right lower limb[ICD10: L03.115] Kelli Gallardo MD [facility] CPT-4: 86611 02/26/2018 [id number] EST. PATIENT, LEVEL III Diagnosis: Cellulitis of left lower limb[ICD10: L03.116] Octavia Gallardo MD [facility] CPT-4: 42438 01/28/2018 ([id number]) 01702 EST. PATIENT, LEVEL III Diagnosis: Essential (primary) hypertension[ICD10: I10] Diagnosis: custodial (current) use of anticoagulants[ICD10: Z79.01] Diagnosis: Nocturia[ICD10: R35.1] Pamela Gallardo MD, [facility] CPT-4: 28566 12/29/2017 ([id number]) 82486 EST. PATIENT, LEVEL IV Diagnosis: Essential (primary) hypertension[ICD10: I10] Diagnosis: Urge incontinence[ICD10: N39.41] Pamela Gallardo MD, [facility] CPT-4: 48279 09/29/2017 ([id number]) 81301 EST. PATIENT, LEVEL IV Diagnosis: Essential (primary) hypertension[ICD10: I10] Diagnosis: Mixed hyperlipidemia[ICD10: E78.2] Diagnosis: [employer] (current) use of anticoagulants[ICD10: Z79.01] Pamela Gallardo MD, [facility] CPT-4: 55743 08/11/2017 ([id number]) 22839 EST. 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 PATIENT, LEVEL IV Diagnosis: Essential (primary) hypertension[ICD10: I10] Diagnosis: Mixed hyperlipidemia[ICD10: E78.2] Diagnosis: [employer] (current) use of anticoagulants[ICD10: Z79.01] Pamela Gallardo MD, [facility] CPT-4: 88835 12/15/2016 ([id number]) 98877 EST. 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 PATIENT, LEVEL IV Diagnosis: Essential (primary) hypertension[ICD10: I10] Diagnosis: Mixed hyperlipidemia[ICD10: E78.2] Diagnosis: Gross hematuria[ICD10: R31.0] Pamela Gallardo MD, [facility] CPT- 4: 83222 10/14/2016 ([id number]) 72973 EST. PATIENT, LEVEL IV Diagnosis: Essential (primary) hypertension[ICD10: I10] Diagnosis: [employer] (current) use of anticoagulants[ICD10: Z79.01] Diagnosis: Mixed hyperlipidemia[ICD10: E78.2] Pamela Gallardo MD, [facility] CPT-4: 96183 09/10/2016 40084 EST. PATIENT, LEVEL III Diagnosis: Gross hematuria[ICD10: R31.0] Octavia Gallardo MD, [facility] CPT-4 : 40249 07/08/2016 ([id number]) 65514 EST. 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 PATIENT, LEVEL IV Diagnosis: Essential (primary) hypertension[ICD10: I10] Diagnosis: Mixed hyperlipidemia[ICD10: E78.2] [facility] CPT-4: 59146 01/31/2016 ([id number]) 59172 EST. PATIENT, LEVEL IV Diagnosis: Essential (primary) hypertension[ICD10: I10] Diagnosis: Mixed hyperlipidemia[ICD10: E78.2] Diagnosis: Encounter for immunization[ICD10: Z23] [facility] CPT-4: 60897 01/03/2016 ([id number]) Miscellaneous no charge Diagnosis: Essential (primary) hypertension[ICD10: I10] Octavia Gallardo MD, [facility] CPT-4: 60568 11/30/2015 ([id number]) OFFICE VISIT, NEW - LEVEL 4 Diagnosis: Essential (primary) hypertension[ICD10: I10] Diagnosis: Mixed hyperlipidemia[ICD10: E78.2] Diagnosis: Impacted cerumen, bilateral[ICD10: H61.23] [facility] CPT-4: 89411 11/21/2015 Plan of Care Planned Activity Notes [...] INR is between 2.0 and 3.5. 04/12/2018 Patient Education: Patient Medication Summary Completed 04/12/2018 Visit Plan: Ulcer of right leg -healed-no further treatment indicated 03/08/2018 Appointment: Kelli Mccullough WPtel: [address] [place], [place] [phone] (15 min) Moderate 03/08/2018 Patient Education: Patient Medication Summary Completed 03/08/2018 Visit Plan: Ulcer of leg -improved-continue wound care as directed-follow up in 1 week, sooner if needed 03/02/2018 Appointment: Kelli Mccullough WPtel: [address] [place], [place] [phone] (15 min) Moderate 03/02/2018 Patient Education: Patient Medication Summary Completed 03/02/2018 Visit Plan: Cellulitis - continue with oral antibiotics as previously directed, return to clinic as previously directed, call for acute change in symptoms, worsening redness, warmth, discharge. 02/26/2018 Appointment: Kelli Mccullough WPtel: [phone] (15 min) Moderate 02/26/2018 Patient Education: Patient Medication Summary Completed 02/26/2018 Visit Plan: Cellulitis - pt is to follow up with his surgeon - continue with oral antibiotics as previously directed, return to clinic as previously directed, call for acute change in symptoms, worsening redness, warmth, discharge. 01/28/2018 Appointment: Octavia Zarate WPtel: [facility] (15 min) Moderate 01/28/2018 Patient Education: [...] supportive care. 12/29/2017 Appointment: Pamela Gallardo WPtel: [facility]5 [facility] (15 min) Moderate 12/29/2017 Patient Education: Patient Medication Summary Completed 12/29/2017 Appointment: Pamela Gallardo WPtel: [facility]3 [facility]66[facility] Same Day appointments 12/16/2017 Visit Plan: Hypertension [...] INR good 08/11/2017 Appointment: Pamela Gallardo WPtel: [facility]5 [phone] (15 min) Moderate 08/11/2017 Patient Education: Patient Medication Summary Completed 08/11/2017 Appointment: Pamela Gallardo WPtel: [facility] [place] [place] (15 min) Moderate 08/06/2017 Appointment: Pamela Gallardo WPtel: [address] [place], [place] [id number] (15 min) Moderate 08/04/2017 Visit Plan: Hypertension [...] today. 12/15/2016 Appointment: Pamela Gallardo WPtel: [phone] [facility] [place] (15 min) Moderate 12/15/2016 Patient Education: Patient Medication Summary Completed 12/15/2016 Visit Plan: Iron deficiency devjeh-ottz-eggvso bleeding- INR has been stable-continue multivitamin with iron daily Hematuria-3+ blood in urine-check PT/INR today-culture urine 11/07/2016 Appointment: Kelli Mccullough WPtel: [phone] (15 min) Moderate 11/07/2016 Patient Education: [...] to medications. 10/14/2016 Appointment: Pamela Gallardo WPtel: [facility]5 [facility] (15 min) Moderate 10/14/2016 Patient Education: Patient Medication Summary Completed 10/14/2016 Patient Education: Obesity Completed 10/14/2016 Appointment: Pamela Gallardo WPtel: [facility]5 [facility] [place] (15 min) Moderate [...] or concerns. 07/08/2016 Appointment: Oct[facility]arate [facility]Ptel[facility] (15 min) Moderate 07/08/2016 Patient Education: [...] medications. 01/03/2016 Appointment: Pam[facility] Gallardo [facility]Ptel[phone] [place] (15 min) Moderate 01/03/2016 Patient Education: Patient [...] medications. 11/21/2015 Appointment: Pam[facility] Gallardo [facility]Ptel[phone] [place] New Patient 11/21/2015 Patient Education: Patient Medication [...] for INR is between 2.0 and 3.5. CHANGE DRESSING DAILY -CLEANSE WITH STERILE SALINE [...] current management - check labs today. . Iron deficiency nkkmjp-dobu-masqim bleeding-INR has been stable-continue multivitamin with iron [...] a script for it to the pharmacy increase the coumadin to 5mg on tuesdays, [...] medications. Chronic anticoagulation - continue with coumadin. Dr. Lincoln always kept INR close to [...]
[2018-07-09] MEDS ORDERED: L.E.T. SYRINGE 5 ML TOP ONE (11:45)
[2018-07-09] MEDS ORDERED: TRANEXAMIC ACID 100 MG/ML 10 ML INJECTION IV ONE (11:45)
--- OUTSIDE RECORDS SUMMARY | 2018-07-09 11:46 | XMS REPORT | CCD ---
Author Author [facility]ela [facility]ardo Organization [facility] Address [address] [place] [address] Phone Care Team Providers Care Sap Pp Consultant Name Role Phone PP Unavailable CCM Unavailable Summary Purpose Interface Exchange Insurance Providers Payer name Policy type / Coverage type Covered green party ID Effective Begin Date Effective End Date WPS Medicare Part B Medicare Part B [id number] Unknown [facility] Medicare Part B [id number] Unknown Family history Father Diagnosis Age At [...] Unknown Retired 11/21/[address]: 2744436 Former smoker Quit September 2014 11/21/[address]: 393912 Currently drinks alcohol 11/21/2015 Has the patient ever used illegal drugs? Unknown Has never used illegal drugs 11/21/2015 Allergies, Adverse Reactions, Alerts Substance Reaction Codes Entered Date Inactivated Date Status * NO KNOWN DRUG ALLERGIES Unknown 11/21/2015 No Inactive Date Active Past Medical History Illness Codes Condition Status Onset Date Resolved Date Cellulitis of right lower limb ICD-9: 682.6 ICD-10: L03.115 Active 02/26/2018 Unknown Cellulitis of left lower limb ICD-9: 682.7 ICD-10: L03.116 Active 01/28/2018 Unknown Encounter for immunization ICD-9: V04.81 ICD-10: Z23 Active 01/02/2016 Unknown Essential (primary) hypertension ICD-9: 401.1 ICD-10: I10 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/2016 Unknown 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 ICD-10: [...] Codes Effective Dates Condition Status Cellulitis of right lower limb ICD-9: 682.6 ICD-10: L03.115 02/26/2018 Active Cellulitis of left lower limb ICD-9: 682.7 ICD-10: L03.116 01/28/2018 Active Encounter for immunization ICD-9: V04.81 ICD-10: Z23 01/02/2016 Active Essential (primary) hypertension ICD-9: 401.1 ICD-10: I10 01/30/2016 Active long-term (current) use of anticoagulants ICD-9: V58.61 ICD-10: [...] Fill Instructions Keflex 500 mg capsule RxNorm: 388050 1 Capsule(s) PO TID 201703/04/2018 Inactive Bactrim DS 800 mg-160 mg tablet RxNorm: 909820 1 Tablet(s) PO BID 01/28/2018 02/06/2018 Inactive warfarin 5 mg tablet RxNorm: 945750 1 Tablet(s) PO UD on Thursday - goal for INR is 2.3 12/25/2017 08/21/2018 Active warfarin 7.5 mg tablet RxNorm: 022188 1 Tablet(s) PO daily except Sat take 5mg 12/25/2017 12/19/2018 Active Lovenox 40 mg/0.4 mL subcutaneous syringe RxNorm: 659464 1 Milliliter(s) SQ BID 10/14/2017 No Stop Date Active Holding coumadin x 5 days. Start the day after stopping coumadin for procedure. Hold the day of surgery. The day after surgery resume BID x 4 days. Vesicare 10 mg tablet RxNorm: 804165 1 Tablet(s) PO QPM 2017 No Stop Date Active lisinopril 20 mg tablet RxNorm: 326310 TAKE ONE TABLET BY MOUTH ONCE DAILY 06/23/2017 No Stop Date Active warfarin 5 mg tablet RxNorm: 338034 1 Tablet(s) PO UD on Thursday and - goal for INR is 2.3 02/11/2017 10/08/2017 Inactive lisinopril 20 mg tablet RxNorm: 789704 1 Tablet(s) PO daily 06/22/2017 Inactive warfarin 7.5 mg tablet RxNorm: 809733 1 Tablet(s) PO daily except 10/14/2016 10/08/2017 Inactive warfarin 5 mg tablet RxNorm: 479075 1 Tablet(s) PO UD on Thursday and - goal for INR is 2.3 10/14/2016 02/10/2017 Inactive warfarin 5 mg tablet RxNorm: 753987 1 Tablet(s) PO UD on Thursday10/14/2016 10/13/2016 Inactive warfarin 7.5 mg tablet RxNorm: 078886 1 Tablet(s) PO daily 10/13/2016 Inactive warfarin 7.5 mg tablet RxNorm: 736907 1 Tablet(s) PO daily 03/201708/17/2016 Inactive Norvasc 5 mg tablet RxNorm: 554666 1 Tablet(s) PO QPM 201512/14/2016 Inactive aspirin 81 mg chewable tablet RxNorm: 974945 1 Tablet(s) PO daily No Start Date Active amlodipine 2.5 mg tablet RxNorm: 799676 1 Tablet(s) PO daily No Start Date Active PreserVision AREDS 2 oral RxNorm: 6258011 oral No Start Date Active Citracal + D3 (calcium phosphate) oral RxNorm: 9427388 oral No Start Date Active Centrum Silver tablet RxNorm: 1 Tablet(s) PO daily No Start Date Active Colace 100 mg capsule RxNorm: 1964775 1-2 Capsule(s) PO as needed constipation No Start Date Active Imodium A-D 2 mg tablet RxNorm: 183001 1 Tablet(s) PO as needed diarrhea No Start Date Active atorvastatin 20 mg tablet RxNorm: 750400 1 Tablet(s) PO daily No Start Date Active carvedilol 6.25 mg tablet RxNorm: 823170 1 Tablet(s) PO BID No Start Date Active Lupron Depot intramuscular RxNorm: 745328 intramuscular No Start Date Active Lovenox 40 mg/0.4 mL subcutaneous syringe RxNorm: 218333 1 Milliliter(s) SQ BID No Start Date 10/13/2017 Inactive Holding coumadin x 5 days. Start the day after stopping coumadin for procedure. Hold the day of surgery. The day after surgery resume BID x 4 days. warfarin 5 mg tablet RxNorm: 465867 1 Tablet(s) PO every other day No Start Date 10/13/2016 Inactive warfarin 7.5 mg tablet RxNorm: 596629 1 Tablet(s) PO every other day No Start Date 07/15/2016 Inactive lisinopril 20 mg tablet RxNorm: 825886 1 Tablet(s) PO daily No Start Date 12/28/2016 Inactive clopidogrel 75 mg tablet RxNorm: 841771 1 Tablet(s) PO daily No Start Date 03/10/2016 Inactive Medication Administered No Medication Administered data Immunizations Vaccine Codes Date Status Influenza CVX: 141 01/04/2018 completed Influenza CVX: 141 01/03/2016 completed Assessments Condition Codes Effective Dates Cellulitis of right lower limb ICD-10: L03.115 ICD-9: 682.6 03/08/2018 Cellulitis of left lower limb ICD-10: L03.116 ICD-9: 682.7 01/28/2018 Encounter for immunization ICD-10: Z23 ICD-9: V04.81 01/04/2018 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 ICD-9: [...] Visit Reason For Visit Effective Dates Notes skin lesion 03/08/2018 skin lesion 03/02/2018 skin lesion 02/26/2018 foot pain 01/28/2018 vaccination against influenza 01/04/2018 nocturia 12/29/2017 Hospital Follow Up 09/29/2017 hypertension 08/11/2017 hypertension 03/16/2017 hypertension 12/15/2016 anemia 11/07/2016 hypertension 10/14/2016 hypertension 09/10/2016 hematuria 07/08/2016 hypertension 06/16/2016 hypertension 01/31/2016 hypertension 01/03/2016 hypertension 11/21/2015 Results Observation Observation Code Item Item Code Result Date Pt Lyy8151 PT 24.4 seconds 03/03/2018 Pt Mkk6158 INR 2.2 03/03/2018 Pt Dht6613 Low Intensity - 1.5-2.0 03/03/2018 Pt Woi1685 Mod intensity - 2.0-3.0 03/03/2018 Pt Foj1476 Hi intensity - 3.0-4.0 03/03/2018 Pt Iep8730 PT 28.9 seconds 02/15/2018 Pt Fmj5754 INR 2.8 02/15/2018 Pt Btp8130 Low Intensity - 1.5-2.0 02/15/2018 Pt Ise9150 Mod intensity - 2.0-3.0 02/15/2018 Pt Xbq2809 Hi intensity - 3.0-4.0 02/15/2018 Pt Efz8034 PT 27.2 seconds 02/02/2018 Pt Lcd1401 INR 2.6 02/02/2018 Pt Wzg6089 Low Intensity - 1.5-2.0 02/02/2018 Pt Eiw0094 Mod intensity - 2.0-3.0 02/02/2018 Pt Kev4295 Hi intensity - 3.0-4.0 02/02/2018 Pt Dgm2856 PT 18.2 seconds 01/28/2018 Pt Vvo1920 INR 1.6 01/28/2018 Pt Hif9827 Low Intensity - 1.5-2.0 01/28/2018 Pt Msn2452 Mod intensity - 2.0-3.0 01/28/2018 Pt Urg9687 Hi intensity - 3.0-4.0 01/28/2018 Pt Ewd1966 PT 19.8 seconds 01/22/2018 Pt Isc8905 INR 1.7 01/22/2018 Pt Fiw6165 Low Intensity - 1.5-2.0 01/22/2018 Pt Ivs7514 Mod intensity - 2.0-3.0 01/22/2018 Pt Fnn6525 Hi intensity - 3.0-4.0 01/22/2018 Pt Uam5402 PT 38.3 seconds 01/15/2018 Pt Jkg8181 INR 3.8 01/15/2018 Pt Gsw3678 Low Intensity - 1.5-2.0 01/15/2018 Pt Knk4955 Mod intensity - 2.0-3.0 01/15/2018 Pt Zgh2289 Hi intensity - 3.0-4.0 01/15/2018 Pt Mjd2470 PT 27.1 seconds 01/05/2018 Pt Ygl6758 INR 2.5 01/05/2018 Pt Pto7442 Low Intensity - 1.5-2.0 01/05/2018 Pt Ljn5617 Mod intensity - 2.0-3.0 01/05/2018 Pt Rcj0607 Hi intensity - 3.0-4.0 01/05/2018 Pt Leg6864 PT 27.2 seconds 12/25/2017 Pt Xym8993 INR 2.5 12/25/2017 Pt Hxj8277 Low Intensity - 1.5-2.0 12/25/2017 Pt Hrf9972 Mod intensity - 2.0-3.0 12/25/2017 Pt Zib9557 Hi intensity - 3.0-4.0 12/25/2017 Pt Pvh1465 PT 22.2 seconds 12/09/2017 Pt Wpc8019 INR 2.0 12/09/2017 Pt Trl8337 Low Intensity - 1.5-2.0 12/09/2017 Pt Orf9616 Mod intensity - 2.0-3.0 12/09/2017 Pt Iwn3447 Hi intensity - 3.0-4.0 12/09/2017 Pt Gne3825 PT 20.5 seconds 11/27/2017 Pt Pss8250 INR 1.8 11/27/2017 Pt Izo5436 Low Intensity - 1.5-2.0 11/27/2017 Pt Wxy9283 Mod intensity - 2.0-3.0 11/27/2017 Pt Wls3472 Hi intensity - 3.0-4.0 11/27/2017 Pt Zsp5115 PT 16.8 seconds 11/23/2017 Pt Yyc4456 INR 1.4 11/23/2017 Pt Fgz3376 Low Intensity - 1.5-2.0 11/23/2017 Pt Xzh6181 Mod intensity - 2.0-3.0 11/23/2017 Pt Sos9381 Hi intensity - 3.0-4.0 11/23/2017 Pt Dqd6590 PT 13.4 seconds 11/20/2017 Pt Qit2273 INR 1.1 11/20/2017 Pt Ryr4973 Low Intensity - 1.5-2.0 11/20/2017 Pt Dga5076 Mod intensity - 2.0-3.0 11/20/2017 Pt Btz4421 Hi intensity - 3.0-4.0 11/20/2017 Pt Vab0664 PT 29.3 seconds 09/22/2017 Pt Pnt1547 INR 2.7 09/22/2017 Pt Qvm2103 Low Intensity - 1.5-2.0 09/22/2017 Pt Jqn9496 Mod intensity - 2.0-3.0 09/22/2017 Pt Taq1430 Hi intensity - 3.0-4.0 09/22/2017 Pt Ccp7599 PT 24.6 seconds 08/27/2017 Pt Wkb1089 INR 2.2 08/27/2017 Pt Pcw5567 Low Intensity - 1.5-2.0 08/27/2017 Pt Kwv0939 Mod intensity - 2.0-3.0 08/27/2017 Pt Edq9291 Hi intensity - 3.0-4.0 08/27/2017 Pt Ocr1985 PT 24.9 seconds 08/03/2017 Pt Ene0917 INR 2.3 08/03/2017 Pt Lhr9152 Low Intensity - 1.5-2.0 08/03/2017 Pt Mlt3219 Mod intensity - 2.0-3.0 08/03/2017 Pt Lqx3758 Hi intensity - 3.0-4.0 08/03/2017 Pt Njn1194 PT 24.4 seconds 06/17/2017 Pt Emc5942 INR 2.2 06/17/2017 Pt Wks1526 Low Intensity - 1.5-2.0 06/17/2017 Pt Cxv9778 Mod intensity - 2.0-3.0 06/17/2017 Pt Idc8565 Hi intensity - 3.0-4.0 06/17/2017 Pt Cez5180 PT 26.8 seconds 06/01/2017 Pt Cux5377 INR 2.5 06/01/2017 Pt Ufb2939 Low Intensity - 1.5-2.0 06/01/2017 Pt Eun4125 Mod intensity - 2.0-3.0 06/01/2017 Pt Buk8448 Hi intensity - 3.0-4.0 06/01/2017 Pt Cap9897 PT 18.8 seconds 05/18/2017 Pt Rrd9731 INR 1.6 05/18/2017 Pt Trh4088 Low Intensity - 1.5-2.0 05/18/2017 Pt Dre3372 Mod intensity - 2.0-3.0 05/18/2017 Pt Ubg5816 Hi intensity - 3.0-4.0 05/18/2017 Pt Ece7077 PT 18.6 seconds 04/27/2017 Pt Dvh7291 INR 1.6 04/27/2017 Pt Yev5399 Low Intensity - 1.5-2.0 04/27/2017 Pt Bay1082 Mod intensity - 2.0-3.0 04/27/2017 Pt Wko4470 Hi intensity - 3.0-4.0 04/27/2017 Pt Pzc1115 PT 26.1 seconds 04/13/2017 Pt Gil9041 INR 2.4 04/13/2017 Pt Lzd2666 Low Intensity - 1.5-2.0 04/13/2017 Pt Icq0122 Mod intensity - 2.0-3.0 04/13/2017 Pt Nvy8121 Hi intensity - 3.0-4.0 04/13/2017 Comp Metabolic Hho695 NA 140 mEq/L 03/17/2017 Comp Metabolic Aoe672 K 4.4 mEq/L 03/17/2017 Comp Metabolic Bwh899 CL 104 mEq/L 03/17/2017 Comp Metabolic Iod703 CO2 30.0 mEq/L 03/17/2017 Comp Metabolic Waf344 ANION GAP 10 03/17/2017 Comp Metabolic Bqf866 GLUCOSE 122 mg/dL 03/17/2017 Comp Metabolic Iex423 Creat 0.9 mg/dL 03/17/2017 Comp Metabolic Ney729 eGFR 82 ml/min/1.73m2 03/17/2017 Comp Metabolic Ear223 BUN 22 mg/dL 03/17/2017 Comp Metabolic Wxo648 B/C Ratio 23.7 Ratio 03/17/2017 Comp Metabolic Jha535 CALCIUM 10.3 mg/dL 03/17/2017 Comp Metabolic Mxq719 ALK PHOS 62 U/L 03/17/2017 Comp Metabolic Fxs552 AST(SGOT) 19 U/L 03/17/2017 Comp Metabolic Fyw109 ALT(SGPT) 21 U/L 03/17/2017 Comp Metabolic Yje333 BILI T 0.5 mg/dL 03/17/2017 Comp Metabolic Vtb055 ALBUMIN 4.1 g/dL 03/17/2017 Comp Metabolic Los306 TPRO 6.9 g/dL 03/17/2017 Comp Metabolic Rgr636 GLOB 2.8 g/dL 03/17/2017 Comp Metabolic Kjp288 A/G Ratio 1.5 Ratio 03/17/2017 Comp Metabolic Kfu031 Osmo 284 mOsmo 03/17/2017 Lipid Ord30 CHOL 115 mg/dL 03/17/2017 Lipid Ord30 HDL 54.0 mg/dl 03/17/2017 Lipid Ord30 TRIG 94 mg/dL 03/17/2017 Lipid Ord30 LDL 42 mg/dL 03/17/2017 Lipid Ord30 C/HDL 2.1 Ratio 03/17/2017 Comp Metabolic Koa069 NA 140 mEq/L 03/17/2017 Comp Metabolic Aes794 K 4.4 mEq/L 03/17/2017 Comp Metabolic Hnp672 CL 104 mEq/L 03/17/2017 Comp Metabolic Ddw953 CO2 30.0 mEq/L 03/17/2017 Comp Metabolic Ovl057 ANION GAP 10 03/17/2017 Comp Metabolic Myu596 GLUCOSE 122 mg/dL 03/17/2017 Comp Metabolic Qzp449 Creat 0.9 mg/dL 03/17/2017 Comp Metabolic Deq649 eGFR 82 ml/min/1.73m2 03/17/2017 Comp Metabolic Efo071 BUN 22 mg/dL 03/17/2017 Comp Metabolic Luf827 B/C Ratio 23.7 Ratio 03/17/2017 Comp Metabolic Bbm546 CALCIUM 10.3 mg/dL 03/17/2017 Comp Metabolic Ldg938 ALK PHOS 62 U/L 03/17/2017 Comp Metabolic Clw975 AST(SGOT) 19 U/L 03/17/2017 Comp Metabolic Hkn107 ALT(SGPT) 21 U/L 03/17/2017 Comp Metabolic Hze135 BILI T 0.5 mg/dL 03/17/2017 Comp Metabolic Ljh114 ALBUMIN 4.1 g/dL 03/17/2017 Comp Metabolic Nmy298 TPRO 6.9 g/dL 03/17/2017 Comp Metabolic Eow944 GLOB 2.8 g/dL 03/17/2017 Comp Metabolic Gdh948 A/G Ratio 1.5 Ratio 03/17/2017 Comp Metabolic Wiy476 Osmo 284 mOsmo 03/17/2017 Lipid Ord30 CHOL 115 mg/dL 03/17/2017 Lipid Ord30 HDL 54.0 mg/dl 03/17/2017 Lipid Ord30 TRIG 94 mg/dL 03/17/2017 Lipid Ord30 LDL 42 mg/dL 03/17/2017 Lipid Ord30 C/HDL 2.1 Ratio 03/17/2017 Pt Cpn6304 PT 23.7 seconds 03/12/2017 Pt Ohl4778 INR 2.1 03/12/2017 Pt Pgp5650 Low Intensity - 1.5-2.0 03/12/2017 Pt Uwy1246 Mod intensity - 2.0-3.0 03/12/2017 Pt Wiw2052 Hi intensity - 3.0-4.0 03/12/2017 Pt Amq5952 PT 21.3 seconds 02/10/2017 Pt Qai4532 INR 1.9 02/10/2017 Pt Ukc2582 Low Intensity - 1.5-2.0 02/10/2017 Pt Lmp0731 Mod intensity - 2.0-3.0 02/10/2017 Pt Ody6863 Hi intensity - 3.0-4.0 02/10/2017 Pt Wko1228 PT 21.4 seconds 01/27/2017 Pt Suq4845 INR 1.9 01/27/2017 Pt Qex9349 Low Intensity - 1.5-2.0 01/27/2017 Pt Ltf2759 Mod intensity - 2.0-3.0 01/27/2017 Pt Dhx9927 Hi intensity - 3.0-4.0 01/27/2017 Pt Buy4030 PT 22.0 seconds 01/19/2017 Pt Uxh3849 INR 1.9 01/19/2017 Pt Hpz9936 Low Intensity - 1.5-2.0 01/19/2017 Pt Cll7589 Mod intensity - 2.0-3.0 01/19/2017 Pt Ucy1280 Hi intensity - 3.0-4.0 01/19/2017 Pt Ufb1336 PT 28.3 seconds 01/05/2017 Pt Ulh2052 INR 2.6 01/05/2017 Pt Lux9492 Low Intensity - 1.5-2.0 01/05/2017 Pt Xyy8575 Mod intensity - 2.0-3.0 01/05/2017 Pt Inc6558 Hi intensity - 3.0-4.0 01/05/2017 Pt Agw2071 PT 29.1 seconds 12/15/2016 Pt Lur3629 INR 2.7 12/15/2016 Pt Cbu9786 Low Intensity - 1.5-2.0 12/15/2016 Pt Ohz4292 Mod intensity - 2.0-3.0 12/15/2016 Pt Cvl6609 Hi intensity - 3.0-4.0 12/15/2016 Urine Culture Ucult Preliminary NO Growth Day 1 11/10/2016 Urine Culture Ucult Complete NO Growth Day 2 11/10/2016 Pt Gfb1152 PT 23.7 seconds 11/07/2016 Pt Fxz5306 INR 2.1 11/07/2016 Pt Qhm9104 Low Intensity - 1.5-2.0 11/07/2016 Pt Fld1584 Mod intensity - 2.0-3.0 11/07/2016 Pt Huy3916 Hi intensity - 3.0-4.0 11/07/2016 Pt Ccd5149 PT 27.1 seconds 10/13/2016 Pt Qkn5276 INR 2.7 10/13/2016 Pt Yry0162 Low Intensity - 1.5-2.0 10/13/2016 Pt Uhl0925 Mod intensity - 2.0-3.0 10/13/2016 Pt Lzx8127 Hi intensity - 3.0-4.0 10/13/2016 Pt Vxb2525 PT 26.3 seconds 09/23/2016 Pt Yil9088 INR 2.6 09/23/2016 Pt Bqu2345 Low Intensity - 1.5-2.0 09/23/2016 Pt Kyy6046 Mod intensity - 2.0-3.0 09/23/2016 Pt Lbt4401 Hi intensity - 3.0-4.0 09/23/2016 Pt Voh9927 PT 20.4 seconds 09/09/2016 Pt Cxp8554 INR 1.8 09/09/2016 Pt Lfj4881 Low Intensity - 1.5-2.0 09/09/2016 Pt Xan7903 Mod intensity - 2.0-3.0 09/09/2016 Pt Bhh8204 Hi intensity - 3.0-4.0 09/09/2016 Pt Ozo4449 PT 24.1 seconds 08/26/2016 Pt Kdz6095 INR 2.3 08/26/2016 Pt Idz2190 Low Intensity - 1.5-2.0 08/26/2016 Pt Dvy2141 Mod intensity - 2.0-3.0 08/26/2016 Pt Uta3694 Hi intensity - 3.0-4.0 08/26/2016 Pt Yry9482 PT 26.1 seconds 08/12/2016 Pt Cts6334 INR 2.6 08/12/2016 Pt Yzp3700 Low Intensity - 1.5-2.0 08/12/2016 Pt Lsd9510 Mod intensity - 2.0-3.0 08/12/2016 Pt Iuc5525 Hi intensity - 3.0-4.0 08/12/2016 Pt Dpg4506 PT 23.5 seconds 07/15/2016 Pt Vpx7953 INR 2.2 07/15/2016 Pt Ryd6466 Low Intensity - 1.5-2.0 07/15/2016 Pt Lyy4118 Mod intensity - 2.0-3.0 07/15/2016 Pt Aus7451 Hi intensity - 3.0-4.0 07/15/2016 Urine Culture Ucult Preliminary NO Growth Day 1 07/10/2016 Urine Culture Ucult Complete NO Growth Day 2 07/10/2016 Pt Zwf2483 PT 27.9 seconds 06/30/2016 Pt Wmu4687 INR 2.8 06/30/2016 Pt Kbv4194 Low Intensity - 1.5-2.0 06/30/2016 Pt Upf4566 Mod intensity - 2.0-3.0 06/30/2016 Pt Wzh6296 Hi intensity - 3.0-4.0 06/30/2016 Pt Zjz4502 PT 23.7 seconds 06/12/2016 Pt Qfl3317 INR 2.3 06/12/2016 Pt Vro6908 Low Intensity - 1.5-2.0 06/12/2016 Pt Vrw8815 Mod intensity - 2.0-3.0 06/12/2016 Pt Nfj1908 Hi intensity - 3.0-4.0 06/12/2016 Pt Yon0280 PT 36.5 seconds 06/06/2016 Pt Vvl2821 INR 4.0 06/06/2016 Pt Mvy5331 Low Intensity - 1.5-2.0 06/06/2016 Pt Kvo8011 Mod intensity - 2.0-3.0 06/06/2016 Pt Rio3883 Hi intensity - 3.0-4.0 06/06/2016 Tibc Ord40 Iron 76 ug/dl 05/05/2016 Tibc Ord40 UIBC 210 ug/dL 05/05/2016 Tibc Ord40 TIBC 286 ug/dL 05/05/2016 Tibc Ord40 Fe-%Sat 26.6 % 05/05/2016 Pt Sls8205 PT 29.0 seconds 05/05/2016 Pt Syt4114 INR 2.9 05/05/2016 Pt Nxe0340 Low Intensity - 1.5-2.0 05/05/2016 Pt Zqu8991 Mod intensity - 2.0-3.0 05/05/2016 Pt Nku8553 Hi intensity - 3.0-4.0 05/05/2016 Ferritin Ord22 FERRITIN 32.7 ng/mL 05/05/2016 Pt Wkj4160 PT 31.1 seconds 04/08/2016 Pt Eqr7889 INR 3.2 04/08/2016 Pt Teu0234 Low Intensity - 1.5-2.0 04/08/2016 Pt Omz3726 Mod intensity - 2.0-3.0 04/08/2016 Pt Dwl6578 Hi intensity - 3.0-4.0 04/08/2016 Pt Niy4058 PT 17.3 seconds 03/24/2016 Pt Cad9805 INR 1.5 03/24/2016 Pt Lux2165 Low Intensity - 1.5-2.0 03/24/2016 Pt Lvh4889 Mod intensity - 2.0-3.0 03/24/2016 Pt Tdf8117 Hi intensity - 3.0-4.0 03/24/2016 Cbc With [...] 32.4 pg 03/24/2016 Cbc With Differential Ord2 [place]% 11.3 % 03/24/2016 Cbc With Differential Ord2 [...] 2.29 K/ul 03/24/2016 Cbc With Differential Ord2 [place] ABS# 0.8 K/ul 03/24/2016 Cbc With Differential Ord2 Eos ABS# 0.5 K/ul 03/24/2016 Cbc With Differential Ord2 Baso ABS# 0.0 K/ul 03/24/2016 Pt Bzo1926 PT 17.8 seconds 03/12/2016 Pt Vca2973 INR 1.5 03/12/2016 Pt Yjf6124 Low Intensity - 1.5-2.0 03/12/2016 Pt Bqt5611 Mod intensity - 2.0-3.0 03/12/2016 Pt Zqc0746 Hi intensity - 3.0-4.0 03/12/2016 Urine Culture Ucult Preliminary NO Growth Day 1 02/29/2016 Urine Culture Ucult Complete NO Growth Day 2 02/29/2016 Lipid Ord30 CHOL 129 mg/dL 02/21/2016 Lipid Ord30 HDL 59.0 mg/dl 02/21/2016 Lipid Ord30 TRIG 90 mg/dL 02/21/2016 Lipid Ord30 LDL 52 mg/dL 02/21/2016 Lipid Ord30 C/HDL 2.2 Ratio 02/21/2016 Comp Metabolic Sbi042 NA 136 mEq/L 02/21/2016 Comp Metabolic Qxi890 K 4.4 mEq/L 02/21/2016 Comp Metabolic Ssr517 CL 102 mEq/L 02/21/2016 Comp Metabolic Rue193 CO2 29.0 mEq/L 02/21/2016 Comp Metabolic Egw434 ANION GAP 9 02/21/2016 Comp Metabolic Wwx829 GLUCOSE 118 mg/dL 02/21/2016 Comp Metabolic Jbc834 Creat 1.0 mg/dL 02/21/2016 Comp Metabolic Ual494 eGFR 72 ml/min/1.73m2 02/21/2016 Comp Metabolic Tlr427 BUN 23 mg/dL 02/21/2016 Comp Metabolic Xrm279 B/C Ratio 22.1 Ratio 02/21/2016 Comp Metabolic Tuf125 CALCIUM 9.9 mg/dL 02/21/2016 Comp Metabolic Uvc624 ALK PHOS 57 U/L 02/21/2016 Comp Metabolic Rxp489 AST(SGOT) 17 U/L 02/21/2016 Comp Metabolic Hkh899 ALT(SGPT) 19 U/L 02/21/2016 Comp Metabolic Qre431 BILI T 0.6 mg/dL 02/21/2016 Comp Metabolic Nro241 ALBUMIN 3.9 g/dL 02/21/2016 Comp Metabolic Uzd600 TPRO 6.9 g/dL 02/21/2016 Comp Metabolic Hum237 GLOB 3.0 g/dL 02/21/2016 Comp Metabolic Jxw809 A/G Ratio 1.3 Ratio 02/21/2016 Comp Metabolic Ssq769 Osmo 277 mOsmo 02/21/2016 Pt Vmg4002 PT 19.8 seconds 02/21/2016 Pt Pps8993 INR 1.8 02/21/2016 Pt Qew8817 Low Intensity - 1.5-2.0 02/21/2016 Pt Vhi0483 Mod intensity - 2.0-3.0 02/21/2016 Pt Wog0050 Hi intensity - 3.0-4.0 02/21/2016 Pt Ohl6698 PT 24.1 seconds 01/15/2016 Pt Hgq8994 INR 2.3 01/15/2016 Pt Ejf5613 Low Intensity - 1.5-2.0 01/15/2016 Pt Evp8406 Mod intensity - 2.0-3.0 01/15/2016 Pt Uvt9380 Hi intensity - 3.0-4.0 01/15/2016 Pt Vra5135 PT 26.5 seconds 01/03/2016 Pt Jcw6516 INR 2.6 01/03/2016 Pt Dgw2368 Low Intensity - 1.5-2.0 01/03/2016 Pt Qju4693 Mod intensity - 2.0-3.0 01/03/2016 Pt Lyx9119 Hi intensity - 3.0-4.0 01/03/2016 Pt Nat1416 PT 15.3 seconds 11/30/2015 Pt Agx0497 INR 1.3 11/30/2015 Pt Gqd6621 Low Intensity - 1.5-2.0 11/30/2015 Pt Ikq5661 Mod intensity - 2.0-3.0 11/30/2015 Pt Zcm3606 Hi intensity - 3.0-4.0 11/30/2015 Review of [...] clear 10/14/2016 None Full Exam - General 1995 Ears/Nose/Throat oral cavity/pharynx/larynx Overall: hypopharynx benign 10/14/2016 [...] impaction 06/16/2016 None Full Exam - General 1995 Ears/Nose/Throat lips/teeth/gingiva Overall: benign lips 06/16/2016 None [...] Formatting Model/CDA Sections, Assigned to/Arabella Carballo CPT-4: 55220Tstmkyp 01/04/2018 URINALYSIS NONAUTO W/O SCOPE CPT-4: 27762 11/07/2016 URINALYSIS NONAUTO W/O SCOPE CPT-4: 27865 02/26/2016 ADMIN INFLUENZA VIRUS VAC CPT-4: G0008 01/03/2016 FLU VACC 4 ARIANNA 3 YRS PLUS IM SNOMED CT: 58040627 CPT-4: 47013 01/03/2016 Vital Signs Date Vital 03/08/2018 Blood Pressure 1: 124/70 Code : 8480-6 Heart Rate 1: 84 bpm Height: 5'4" SpO2: 92% Weight: 03/02/2018 Blood Pressure 1: 138/76 Code : 8480-6 Heart Rate 1: 87 bpm Height: 5'4" SpO2: 98% Weight: 02/26/2018 Blood Pressure 1: 148/68 Code : 8480-6 BMI: 35.0 Code : 54820-5 Heart Rate 1 : 80 bpm Height: 5'4" SpO2: 97% Weight: 204 lbs 01/28/2018 Blood Pressure 1: 150/60 Code : 8480-6 Heart Rate 1: 91 bpm SpO2: 92% 12/29/2017 Blood Pressure 1: 144/62 Code : 8480-6 BMI: 34.7 Code : 47416-1 Heart Rate 1 : 73 bpm Height: 5'4" SpO2: 97% Weight: 202 lbs 09/29/2017 Blood Pressure 1: 132/80 Code : 8480-6 Heart Rate 1: 76 bpm SpO2: 97% Weight: 204 lbs 08/11/2017 Blood Pressure 1: 132/66 Code : 8480-6 BMI: 35.0 Code : 34673-2 Heart Rate 1 : 81 bpm Height: 5'4" SpO2: 96% Weight: 204 lbs 03/16/2017 Blood Pressure 1: 132/70 Code : 8480-6 BMI: 34.5 Code : 43464-8 Heart Rate 1 : 78 bpm Height: 5'4" SpO2: 98% Weight: 201 lbs 12/15/2016 Blood Pressure 1: 140/80 Code : 8480-6 BMI: 34.2 Code : 39399-7 Heart Rate 1 : 69 bpm Height: 5'4" SpO2: 98% Weight: 199 lbs 11/07/2016 Blood Pressure 1: 158/82 Code : 8480-6 BMI: 34.7 Code : 56659-5 Heart Rate 1 : 76 bpm Height: 5'4" SpO2: 98% Weight: 202 lbs 10/14/2016 Blood Pressure 1: 140/80 Code : 8480-6 BMI: 34.0 Code : 78844-3 Heart Rate 1 : 79 bpm Height: 5'4" SpO2: 96% Weight: 198 lbs 09/10/2016 Blood Pressure 1: 158/80 Code : 8480-6 BMI: 34.3 Code : 03131-7 Heart Rate 1 : 75 bpm Height: 5'4" SpO2: 98% Weight: 200 lbs 07/08/2016 Blood Pressure 1: 160/74 Code : 8480-6 BMI: 35.2 Code : 32615-9 Heart Rate 1 : 94 bpm Height: 5'4" SpO2: 97% Weight: 205 lbs 06/16/2016 Blood Pressure 1: 138/76 Code : 8480-6 BMI: 35.0 Code : 58522-6 Heart Rate 1 : 68 bpm Height: 5'4" SpO2: 98% Weight: 204 lbs 01/31/2016 Blood Pressure 1: 136/64 Code : 8480-6 BMI: 33.6 Code : 20673-8 Heart Rate 1 : 92 bpm Height: 5'4" SpO2: 98% Weight: 196 lbs 01/03/2016 Blood Pressure 1: 142/68 Code : 8480-6 BMI: 33.8 Code : 65639-1 Heart Rate 1 : 80 bpm Height: 5'4" SpO2: 97% Weight: 197 lbs 11/30/2015 Blood Pressure 1: 158/80 Code : 8480-6 Heart Rate 1: 83 bpm SpO2: 98% 11/21/2015 Blood Pressure 1: 172/80 Code : 8480-6 BMI: 32.8 Code : 52717-1 Heart Rate 1 : 87 bpm Height: 5'4" SpO2: 98% Weight: 191 lbs Functional Status No Functional Status data History of Present Illness Symptom Name Status Result Effective Date Notes Quality improving 06/2017 None Location right lower [...] Performer Location Codes Date EST. PATIENT, LEVEL II Diagnosis: Cellulitis of right lower limb[ICD10: L03.115] Kelli Gallardo MD, [facility] CPT-4: 42425 03/08/2018 ([id number]) Miscellaneous no charge Diagnosis: Cellulitis of right lower limb[ICD10: L03.115] Kelli Galalrdo MD, [facility] CPT-4: 66614 03/02/2018 ([id number]) [id number] EST. PATIENT, LEVEL III Diagnosis: Cellulitis of right lower limb[ICD10: L03.115] Kelli Gallardo MD, [facility] CPT-4: 87373 02/26/2018 [id number] EST. PATIENT, LEVEL III Diagnosis: Cellulitis of left lower limb[ICD10: L03.116] Octavia Gallardo MD, [facility] CPT-4: 19918 01/28/2018 ([id number]) [id number] EST. 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 PATIENT, LEVEL IV Diagnosis: Essential (primary) hypertension[ICD10: I10] Diagnosis: Urge incontinence[ICD10: N39.41] Pamela Gallardo MD [facility] CPT-4: 36185 09/29/2017 ([id number]) 80024 EST. PATIENT, LEVEL IV Diagnosis: Essential (primary) hypertension[ICD10: I10] Diagnosis: Mixed hyperlipidemia[ICD10: E78.2] Diagnosis: long-term (current) use of anticoagulants[ICD10: Z79.01] Pamela Gallardo MD [facility] CPT-4: 33086 08/11/2017 ([id number]) [id number] EST. PATIENT, LEVEL IV Diagnosis: Essential (primary) hypertension[ICD10: I10] Diagnosis: Mixed hyperlipidemia[ICD10: E78.2] Diagnosis: Iron deficiency anemia secondary to blood loss (chronic)[ICD10: D50.0 ] Diagnosis: Unsteadiness on feet[ICD10: R26.81] Pamela Gallardo MD, [facility] CPT-4: 28826 03/16/2017 ([id number]) 63588 EST. 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 PATIENT, LEVEL IV Diagnosis: Essential (primary) hypertension[ICD10: I10] Diagnosis: Mixed hyperlipidemia[ICD10: E78.2] Diagnosis: Gross hematuria[ICD10: R31.0] Pamela Gallardo MD, [facility] CPT- 4: 66180 10/14/2016 ([id number]) 39160 EST. 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 PATIENT, LEVEL III Diagnosis: Gross hematuria[ICD10: R31.0] [facility] CPT-4 : 43118 07/08/2016 ([id number]) 10934 EST. 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 PATIENT, LEVEL IV Diagnosis: Essential (primary) hypertension[ICD10: I10] Diagnosis: Mixed hyperlipidemia[ICD10: E78.2] [facility] CPT-4: 31195 01/31/2016 ([id number]) 45903 EST. PATIENT, LEVEL IV Diagnosis: Essential (primary) hypertension[ICD10: I10] Diagnosis: Mixed hyperlipidemia[ICD10: E78.2] Diagnosis: Encounter for immunization[ICD10: Z23] [facility] CPT-4: 85709 01/03/2016 ([id number]) Miscellaneous no charge Diagnosis: Essential (primary) hypertension[ICD10: I10] [facility] CPT-4: 15787 11/30/2015 ([id number]) OFFICE VISIT, NEW - LEVEL 4 Diagnosis: Essential (primary) hypertension[ICD10: I10] Diagnosis: Mixed hyperlipidemia[ICD10: E78.2] Diagnosis: Impacted cerumen, bilateral[ICD10: H61.23] [facility] CPT-4: 62056 11/21/2015 Plan of Care Planned Activity Notes Codes Status Date Visit Plan: Ulcer of right leg -healed-no further treatment indicated 03/08/2018 Appointment: Kelli Mccullough WPtel: [phone] [phone] (15 min) Moderate 03/08/2018 Patient Education: Patient Medication Summary Completed 03/08/2018 Visit Plan: Ulcer of leg -improved-continue wound care as directed-follow up in 1 week, sooner if needed 03/02/2018 Appointment: Kelli Mccullough WPtel: [phone] [phone] (15 min) Moderate 03/02/2018 Patient Education: Patient Medication Summary Completed 03/02/2018 Visit Plan: Cellulitis - continue with oral antibiotics as previously directed, return to clinic as previously directed, call for acute change in symptoms, worsening redness, warmth, discharge. 02/26/2018 Appointment: Kelli Mccullough WPtel: [phone] (15 min) Moderate 02/26/2018 Patient Education: Patient Medication Summary Completed 02/26/2018 Visit Plan: Cellulitis - pt is to follow up with his surgeon - continue with oral antibiotics as previously directed, return to clinic as previously directed, call for acute change in symptoms, worsening redness, warmth, discharge. 01/28/2018 Appointment: Octavia Zarate WPtel: [facility] (15 min) Moderate 01/28/2018 Patient Education: [...] care. 12/29/2017 Appointment: Pamela Gallardo WPtel: [phone] [phone] (15 min) Moderate 12/29/2017 Patient Education: Patient Medication Summary Completed 12/29/2017 Appointment: [id number] [facility] 12/16/2017 Visit Plan: Hypertension [...] pharmacy 09/29/2017 Appointment: [phone] (15 min) Moderate 09/29/2017 Patient Education: Patient [...] good 08/11/2017 Appointment: Pam[facility] Gallardo [phone] [place] (15 min) Moderate 08/11/2017 Patient Education: Patient Medication Summary Completed 08/11/2017 Appointment: Pam[facility] Gallardo [phone] [place] (15 min) Moderate 08/06/2017 Appointment: PaulinaaPmela [facility]Ptel[phone] (15 min) Moderate 08/04/2017 Visit Plan: Hypertension [...] monitor symptoms. 03/16/2017 Appointment: Pamela Gallardo WPtel: [facility] (15 min) Moderate 03/16/2017 Patient Education: Patient Medication Summary Completed 03/16/2017 Patient Education: Obesity Completed 03/16/2017 Appointment: Pamela Gallardo WPtel: [facility] (15 min) Moderate 12/30/2016 Visit Plan: Hypertension [...] labs today. 12/15/2016 Appointment: Pam[facility] Gallardo [phone] (15 min) Moderate 12/15/2016 Patient Education: Patient Medication Summary Completed 12/15/2016 Visit Plan: Iron deficiency ngpwvf-sndh-yzyonp bleeding- INR has been stable-continue multivitamin with iron daily Hematuria-3+ blood in urine-check PT/INR today-culture urine 11/07/2016 Appointment: Kelli Mccullough WPtel: [phone] [phone] [place] (15 min) Moderate 11/07/2016 Patient [...] to medications. 10/14/2016 Appointment: Pam[facility] Gallardo [facility]Ptel: [phone] [place] (15 min) Moderate 10/14/2016 Patient Education: Patient Medication Summary Completed 10/14/2016 Patient Education: Obesity Completed 10/14/2016 Appointment: Pam[facility] Gallardo [phone] [place] (15 min) Moderate 10/09/2016 Visit Plan: [...] or concerns. 07/08/2016 Appointment: Octavia Zarate WPtel: [address] [place], [place] [id number] [place] (15 min) Moderate 07/08/2016 Patient Education: [...] coumadin. 06/16/2016 Appointment: Pam[facility] Gallardo [facility]Ptel: [phone] [place] (15 min) Moderate 06/16/2016 Patient Education: Patient Medication Summary Completed 06/16/2016 Patient Education: Obesity Completed 06/16/2016 Appointment: Pamela Gallardo WPtel: [phone] [facility] [place] (15 min) Moderate 05/22/2016 Patient [...] medications. 01/31/2016 Appointment: Pam[facility] Gallardo [phone] [place] (15 min) Moderate 01/31/2016 Patient Education: [...] medications. 01/03/2016 Appointment: Pam[facility] Gallardo [facility]el[phone] (15 min) Moderate 01/03/2016 Patient Education: Patient [...] to medications. 11/21/2015 Appointment: Pamela Gallardo WPtel: [facility] [place] Patient 11/21/2015 Patient Education: Patient Medication [...] good Nocturia - continue with supportive care. blood pressure is uncontrolled - i recommend [...] it to the pharmacy . Iron deficiency fwjtmr-glzi-erubtt bleeding-INR has been stable-continue multivitamin with iron [...]
--- OUTSIDE RECORDS SUMMARY | 2018-07-09 11:49 | XMS REPORT | CCD ---
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 Role Phone PP Unavailable CCM Unavailable Summary Purpose Interface Exchange Insurance Providers Payer name Policy type / Coverage type Covered libertarian ID Effective Begin Date Effective End Date WPS Medicare Part B Medicare Part B [id number] Unknown [facility] Medicare Part B [id number] Unknown Family history Father Diagnosis Age At [...] Unknown Retired 11/21/[address]: 3358580 Former smoker Quit September 2014 11/21/[address]: 643736 Currently drinks alcohol 11/21/2015 Has the patient [...] ICD-9: 401.1 ICD-10: I10 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/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 ICD-9: [...] hypertension ICD-9: 401.1 ICD-10: I10 01/30/2016 Active correction (current) use of anticoagulants ICD-9: V58.61 [...] Fill Instructions Keflex 500 mg capsule RxNorm: 381676 1 Capsule(s) PO TID 201703/04/2018 Inactive Bactrim DS 800 mg-160 mg tablet RxNorm: 943978 1 Tablet(s) PO BID 01/28/2018 02/06/2018 Inactive warfarin 5 mg tablet RxNorm: 685521 1 Tablet(s) PO UD on Thursday - goal for INR is 2.3 12/25/2017 08/21/2018 Active warfarin 7.5 mg tablet RxNorm: 763483 1 Tablet(s) PO daily except Sat take 5mg 12/25/2017 12/19/2018 Active Lovenox 40 mg/0.4 mL subcutaneous syringe RxNorm: 959651 1 Milliliter(s) SQ BID 10/14/2017 No Stop Date Active Holding coumadin x 5 days. Start the day after stopping coumadin for procedure. Hold the day of surgery. The day after surgery resume BID x 4 days. Vesicare 10 mg tablet RxNorm: 974984 1 Tablet(s) PO QPM 2017 No Stop Date Active lisinopril 20 mg tablet RxNorm: 697497 TAKE ONE TABLET BY MOUTH ONCE DAILY 06/23/2017 No Stop Date Active warfarin 5 mg tablet RxNorm: 151710 1 Tablet(s) PO UD on Thursday and - goal for INR is 2.3 02/11/2017 10/08/2017 Inactive lisinopril 20 mg tablet RxNorm: 732771 1 Tablet(s) PO daily 06/22/2017 Inactive warfarin 7.5 mg tablet RxNorm: 506513 1 Tablet(s) PO daily except 10/14/2016 10/08/2017 Inactive warfarin 5 mg tablet RxNorm: 717203 1 Tablet(s) PO UD on Thursday and - goal for INR is 2.3 10/14/2016 02/10/2017 Inactive warfarin 5 mg tablet RxNorm: 833700 1 Tablet(s) PO UD on Thursday10/14/2016 10/13/2016 Inactive warfarin 7.5 mg tablet RxNorm: 895808 1 Tablet(s) PO daily 10/13/2016 Inactive warfarin 7.5 mg tablet RxNorm: 117084 1 Tablet(s) PO daily 03/201708/17/2016 Inactive Norvasc 5 mg tablet RxNorm: 907372 1 Tablet(s) PO QPM 201512/14/2016 Inactive aspirin 81 mg chewable tablet RxNorm: 165256 1 Tablet(s) PO daily No Start Date Active amlodipine 2.5 mg tablet RxNorm: 736160 1 Tablet(s) PO daily No Start Date Active PreserVision AREDS 2 oral RxNorm: 6546233 oral No Start Date Active Citracal + D3 (calcium phosphate) oral RxNorm: 7923861 oral No Start Date Active Centrum Silver tablet RxNorm: 1 Tablet(s) PO daily No Start Date Active Colace 100 mg capsule RxNorm: 6928792 1-2 Capsule(s) PO as needed constipation No Start Date Active Imodium A-D 2 mg tablet RxNorm: 774124 1 Tablet(s) PO as needed diarrhea No Start Date Active atorvastatin 20 mg tablet RxNorm: 370485 1 Tablet(s) PO daily No Start Date Active carvedilol 6.25 mg tablet RxNorm: 441382 1 Tablet(s) PO BID No Start Date Active Lupron Depot intramuscular RxNorm: 315233 intramuscular No Start Date Active Lovenox 40 mg/0.4 mL subcutaneous syringe RxNorm: 841121 1 Milliliter(s) SQ BID No Start Date 10/13/2017 Inactive Holding coumadin x 5 days. Start the day after stopping coumadin for procedure. Hold the day of surgery. The day after surgery resume BID x 4 days. warfarin 5 mg tablet RxNorm: 708482 1 Tablet(s) PO every other day No Start Date 10/13/2016 Inactive warfarin 7.5 mg tablet RxNorm: 856516 1 Tablet(s) PO every other day No Start Date 07/15/2016 Inactive lisinopril 20 mg tablet RxNorm: 344673 1 Tablet(s) PO daily No Start Date 12/28/2016 Inactive clopidogrel 75 mg tablet RxNorm: 097562 1 Tablet(s) PO daily No Start Date 03/10/2016 Inactive Medication Administered No Medication Administered data Immunizations Vaccine Codes Date Status Influenza CVX: 141 01/04/2018 completed Influenza CVX: 141 01/03/2016 completed Assessments Condition Codes Effective Dates Cellulitis of right lower limb ICD-10: L03.115 ICD-9: 682.6 03/08/2018 Cellulitis of left lower limb ICD-10: L03.116 ICD-9: 682.7 01/28/2018 Encounter for immunization ICD-10: Z23 ICD-9: V04.81 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: [...] Code Item Item Code Result Date Pt Fbs6427 PT 24.4 seconds 03/03/2018 Pt Gsq6211 INR 2.2 03/03/2018 Pt Dzs5420 Low Intensity - 1.5-2.0 03/03/2018 Pt Inb5210 Mod intensity - 2.0-3.0 03/03/2018 Pt Yxw7656 Hi intensity - 3.0-4.0 03/03/2018 Pt Eio0839 PT 28.9 seconds 02/15/2018 Pt Inn4035 INR 2.8 02/15/2018 Pt Wsf8959 Low Intensity - 1.5-2.0 02/15/2018 Pt Qds5108 Mod intensity - 2.0-3.0 02/15/2018 Pt Prm8517 Hi intensity - 3.0-4.0 02/15/2018 Pt Loc0673 PT 27.2 seconds 02/02/2018 Pt Gkm5742 INR 2.6 02/02/2018 Pt Afi3554 Low Intensity - 1.5-2.0 02/02/2018 Pt Cdy5554 Mod intensity - 2.0-3.0 02/02/2018 Pt Uei4993 Hi intensity - 3.0-4.0 02/02/2018 Pt Ndp6386 PT 18.2 seconds 01/28/2018 Pt Axi5452 INR 1.6 01/28/2018 Pt Ppg3822 Low Intensity - 1.5-2.0 01/28/2018 Pt Yiv1851 Mod intensity - 2.0-3.0 01/28/2018 Pt Fng1846 Hi intensity - 3.0-4.0 01/28/2018 Pt Mip2360 PT 19.8 seconds 01/22/2018 Pt Ezh4564 INR 1.7 01/22/2018 Pt Ast6487 Low Intensity - 1.5-2.0 01/22/2018 Pt Yiu0306 Mod intensity - 2.0-3.0 01/22/2018 Pt Bof7730 Hi intensity - 3.0-4.0 01/22/2018 Pt Lsa9681 PT 38.3 seconds 01/15/2018 Pt Pzm3924 INR 3.8 01/15/2018 Pt Zvz7473 Low Intensity - 1.5-2.0 01/15/2018 Pt Beu9572 Mod intensity - 2.0-3.0 01/15/2018 Pt Lfj0430 Hi intensity - 3.0-4.0 01/15/2018 Pt Pwy9976 PT 27.1 seconds 01/05/2018 Pt Bdx7979 INR 2.5 01/05/2018 Pt Mim9727 Low Intensity - 1.5-2.0 01/05/2018 Pt Yvg2567 Mod intensity - 2.0-3.0 01/05/2018 Pt Jyp6038 Hi intensity - 3.0-4.0 01/05/2018 Pt Ldg4580 PT 27.2 seconds 12/25/2017 Pt Uzh6130 INR 2.5 12/25/2017 Pt Ciy1238 Low Intensity - 1.5-2.0 12/25/2017 Pt Gqo5241 Mod intensity - 2.0-3.0 12/25/2017 Pt Acb8621 Hi intensity - 3.0-4.0 12/25/2017 Pt Iln0428 PT 22.2 seconds 12/09/2017 Pt Rot9483 INR 2.0 12/09/2017 Pt Llj2113 Low Intensity - 1.5-2.0 12/09/2017 Pt Nzo7664 Mod intensity - 2.0-3.0 12/09/2017 Pt Bfq9749 Hi intensity - 3.0-4.0 12/09/2017 Pt Rgp6348 PT 20.5 seconds 11/27/2017 Pt Xup7978 INR 1.8 11/27/2017 Pt Jox4889 Low Intensity - 1.5-2.0 11/27/2017 Pt Nhb1878 Mod intensity - 2.0-3.0 11/27/2017 Pt Phr5889 Hi intensity - 3.0-4.0 11/27/2017 Pt Iyc1176 PT 16.8 seconds 11/23/2017 Pt Wef9866 INR 1.4 11/23/2017 Pt Xwt7670 Low Intensity - 1.5-2.0 11/23/2017 Pt Kgs6001 Mod intensity - 2.0-3.0 11/23/2017 Pt Vle1673 Hi intensity - 3.0-4.0 11/23/2017 Pt Lkn3297 PT 13.4 seconds 11/20/2017 Pt Hyu0133 INR 1.1 11/20/2017 Pt Rwc1392 Low Intensity - 1.5-2.0 11/20/2017 Pt Ktp8713 Mod intensity - 2.0-3.0 11/20/2017 Pt Odp9029 Hi intensity - 3.0-4.0 11/20/2017 Pt Rkh3148 PT 29.3 seconds 09/22/2017 Pt Zbr1243 INR 2.7 09/22/2017 Pt Aoy8813 Low Intensity - 1.5-2.0 09/22/2017 Pt Mfp6148 Mod intensity - 2.0-3.0 09/22/2017 Pt Dun5919 Hi intensity - 3.0-4.0 09/22/2017 Pt Szs7352 PT 24.6 seconds 08/27/2017 Pt Kgy8364 INR 2.2 08/27/2017 Pt Xso4592 Low Intensity - 1.5-2.0 08/27/2017 Pt Nwx6236 Mod intensity - 2.0-3.0 08/27/2017 Pt Xbe5613 Hi intensity - 3.0-4.0 08/27/2017 Pt Vyg1900 PT 24.9 seconds 08/03/2017 Pt Tex9281 INR 2.3 08/03/2017 Pt Vtl0352 Low Intensity - 1.5-2.0 08/03/2017 Pt Qmn6073 Mod intensity - 2.0-3.0 08/03/2017 Pt Eoo9155 Hi intensity - 3.0-4.0 08/03/2017 Pt Gum7528 PT 24.4 seconds 06/17/2017 Pt Uzg5765 INR 2.2 06/17/2017 Pt Vxg1851 Low Intensity - 1.5-2.0 06/17/2017 Pt Jlc7557 Mod intensity - 2.0-3.0 06/17/2017 Pt Agk5748 Hi intensity - 3.0-4.0 06/17/2017 Pt Roh9621 PT 26.8 seconds 06/01/2017 Pt Tbv5546 INR 2.5 06/01/2017 Pt Oyk4019 Low Intensity - 1.5-2.0 06/01/2017 Pt Qye2973 Mod intensity - 2.0-3.0 06/01/2017 Pt Ezq3756 Hi intensity - 3.0-4.0 06/01/2017 Pt Isu6037 PT 18.8 seconds 05/18/2017 Pt Bgn3339 INR 1.6 05/18/2017 Pt [address]2357 Low Intensity - 1.5-2.0 05/18/2017 Pt Onr5273 Mod intensity - 2.0-3.0 05/18/2017 Pt Xvq3176 Hi intensity - 3.0-4.0 05/18/2017 Pt Snk9062 PT 18.6 seconds 04/27/2017 Pt Nzw2273 INR 1.6 04/27/2017 Pt Ksh0028 Low Intensity - 1.5-2.0 04/27/2017 Pt Cds1550 Mod intensity - 2.0-3.0 04/27/2017 Pt Abl4719 Hi intensity - 3.0-4.0 04/27/2017 Pt Vtv6160 PT 26.1 seconds 04/13/2017 Pt Jpf0553 INR 2.4 04/13/2017 Pt Hjh1988 Low Intensity - 1.5-2.0 04/13/2017 Pt Pxe0445 Mod intensity - 2.0-3.0 04/13/2017 Pt Wjy9184 Hi intensity - 3.0-4.0 04/13/2017 Comp Metabolic Xts561 NA 140 mEq/L 03/17/2017 Comp Metabolic Ufl518 K 4.4 mEq/L 03/17/2017 Comp Metabolic Yjd381 CL 104 mEq/L 03/17/2017 Comp Metabolic Oun026 CO2 30.0 mEq/L 03/17/2017 Comp Metabolic Ndc870 ANION GAP 10 03/17/2017 Comp Metabolic Rsp436 GLUCOSE 122 mg/dL 03/17/2017 Comp Metabolic Lmj866 Creat 0.9 mg/dL 03/17/2017 Comp Metabolic Iyc537 eGFR 82 ml/min/1.73m2 03/17/2017 Comp Metabolic Dmx725 BUN 22 mg/dL 03/17/2017 Comp Metabolic Cro717 B/C Ratio 23.7 Ratio 03/17/2017 Comp Metabolic Pao805 CALCIUM 10.3 mg/dL 03/17/2017 Comp Metabolic Wfo198 ALK PHOS 62 U/L 03/17/2017 Comp Metabolic Upq468 AST(SGOT) 19 U/L 03/17/2017 Comp Metabolic Eac066 ALT(SGPT) 21 U/L 03/17/2017 Comp Metabolic Eix355 BILI T 0.5 mg/dL 03/17/2017 Comp Metabolic Tgn537 ALBUMIN 4.1 g/dL 03/17/2017 Comp Metabolic Bha689 TPRO 6.9 g/dL 03/17/2017 Comp Metabolic Cno583 GLOB 2.8 g/dL 03/17/2017 Comp Metabolic Xlf076 A/G Ratio 1.5 Ratio 03/17/2017 Comp Metabolic Wsn585 Osmo 284 mOsmo 03/17/2017 Lipid Ord30 CHOL [...] Ord30 C/HDL 2.1 Ratio 03/17/2017 Comp Metabolic Wpn178 NA 140 mEq/L 03/17/2017 Comp Metabolic Jij248 K 4.4 mEq/L 03/17/2017 Comp Metabolic Zky381 CL 104 mEq/L 03/17/2017 Comp Metabolic Iac176 CO2 30.0 mEq/L 03/17/2017 Comp Metabolic Ids995 ANION GAP 10 03/17/2017 Comp Metabolic Qpg607 GLUCOSE 122 mg/dL 03/17/2017 Comp Metabolic Xhr022 Creat 0.9 mg/dL 03/17/2017 Comp Metabolic Iun121 eGFR 82 ml/min/1.73m2 03/17/2017 Comp Metabolic Fpa135 BUN 22 mg/dL 03/17/2017 Comp Metabolic Qbr772 B/C Ratio 23.7 Ratio 03/17/2017 Comp Metabolic Rzz054 CALCIUM 10.3 mg/dL 03/17/2017 Comp Metabolic Uwy548 ALK PHOS 62 U/L 03/17/2017 Comp Metabolic Qdk382 AST(SGOT) 19 U/L 03/17/2017 Comp Metabolic Eip898 ALT(SGPT) 21 U/L 03/17/2017 Comp Metabolic Hhc193 BILI T 0.5 mg/dL 03/17/2017 Comp Metabolic Xeh225 ALBUMIN 4.1 g/dL 03/17/2017 Comp Metabolic Mri993 TPRO 6.9 g/dL 03/17/2017 Comp Metabolic Ftb869 GLOB 2.8 g/dL 03/17/2017 Comp Metabolic Zle684 A/G Ratio 1.5 Ratio 03/17/2017 Comp Metabolic Fug296 Osmo 284 mOsmo 03/17/2017 Pt Bbc4133 PT 23.7 seconds 03/12/2017 Pt Sjs6415 INR 2.1 03/12/2017 Pt Czb0736 Low Intensity - 1.5-2.0 03/12/2017 Pt Jzo6383 Mod intensity - 2.0-3.0 03/12/2017 Pt Awd6836 Hi intensity - 3.0-4.0 03/12/2017 Pt Mns9769 PT 21.3 seconds 02/10/2017 Pt Jqr6308 INR 1.9 02/10/2017 Pt Jyx1947 Low Intensity - 1.5-2.0 02/10/2017 Pt Kky4021 Mod intensity - 2.0-3.0 02/10/2017 Pt Iqn7948 Hi intensity - 3.0-4.0 02/10/2017 Pt Edj4492 PT 21.4 seconds 01/27/2017 Pt Rdg0589 INR 1.9 01/27/2017 Pt Znv1702 Low Intensity - 1.5-2.0 01/27/2017 Pt Lwj7312 Mod intensity - 2.0-3.0 01/27/2017 Pt Nqg2292 Hi intensity - 3.0-4.0 01/27/2017 Pt Bkl6533 PT 22.0 seconds 01/19/2017 Pt Bif0900 INR 1.9 01/19/2017 Pt Izl9210 Low Intensity - 1.5-2.0 01/19/2017 Pt Abm4267 Mod intensity - 2.0-3.0 01/19/2017 Pt Gvv2682 Hi intensity - 3.0-4.0 01/19/2017 Pt Olt9959 PT 28.3 seconds 01/05/2017 Pt Lbl2340 INR 2.6 01/05/2017 Pt Jbi2772 Low Intensity - 1.5-2.0 01/05/2017 Pt Qyc5361 Mod intensity - 2.0-3.0 01/05/2017 Pt Vml4977 Hi intensity - 3.0-4.0 01/05/2017 Pt Ywl4901 PT 29.1 seconds 12/15/2016 Pt Nif5653 INR 2.7 12/15/2016 Pt Vfl0641 Low Intensity - 1.5-2.0 12/15/2016 Pt Tap7509 Mod intensity - 2.0-3.0 12/15/2016 Pt Ztw9613 Hi intensity - 3.0-4.0 12/15/2016 Urine Culture Ucult Preliminary NO Growth Day 1 11/10/2016 Urine Culture Ucult Complete NO Growth Day 2 11/10/2016 Pt Pim7988 PT 23.7 seconds 11/07/2016 Pt Rlq2102 INR 2.1 11/07/2016 Pt Dig7162 Low Intensity - 1.5-2.0 11/07/2016 Pt Yhp5725 Mod intensity - 2.0-3.0 11/07/2016 Pt Ail0664 Hi intensity - 3.0-4.0 11/07/2016 Pt Hjs1073 PT 27.1 seconds 10/13/2016 Pt Kja9433 INR 2.7 10/13/2016 Pt Opa5176 Low Intensity - 1.5-2.0 10/13/2016 Pt Hcf6224 Mod intensity - 2.0-3.0 10/13/2016 Pt Ids2777 Hi intensity - 3.0-4.0 10/13/2016 Pt Uvx6339 PT 26.3 seconds 09/23/2016 Pt Ukz5550 INR 2.6 09/23/2016 Pt Spg5014 Low Intensity - 1.5-2.0 09/23/2016 Pt Alc2157 Mod intensity - 2.0-3.0 09/23/2016 Pt Mbg8585 Hi intensity - 3.0-4.0 09/23/2016 Pt Cft7139 PT 20.4 seconds 09/09/2016 Pt Vrs6734 INR 1.8 09/09/2016 Pt Ncq8292 Low Intensity - 1.5-2.0 09/09/2016 Pt Dci6633 Mod intensity - 2.0-3.0 09/09/2016 Pt Mhi5072 Hi intensity - 3.0-4.0 09/09/2016 Pt Brr8413 PT 24.1 seconds 08/26/2016 Pt Ejp2293 INR 2.3 08/26/2016 Pt Rpm0163 Low Intensity - 1.5-2.0 08/26/2016 Pt Hwt1653 Mod intensity - 2.0-3.0 08/26/2016 Pt Lpi1845 Hi intensity - 3.0-4.0 08/26/2016 Pt Lyf3788 PT 26.1 seconds 08/12/2016 Pt Yhb2346 INR 2.6 08/12/2016 Pt Msk0155 Low Intensity - 1.5-2.0 08/12/2016 Pt Tha7838 Mod intensity - 2.0-3.0 08/12/2016 Pt Foy7254 Hi intensity - 3.0-4.0 08/12/2016 Pt Sxh2876 PT 23.5 seconds 07/15/2016 Pt Lfo0195 INR 2.2 07/15/2016 Pt Qek3549 Low Intensity - 1.5-2.0 07/15/2016 Pt Hxn2094 Mod intensity - 2.0-3.0 07/15/2016 Pt Fvm0946 Hi intensity - 3.0-4.0 07/15/2016 Urine Culture Ucult Preliminary NO Growth Day 1 07/10/2016 Urine Culture Ucult Complete NO Growth Day 2 07/10/2016 Pt Htw3831 PT 27.9 seconds 06/30/2016 Pt Zsn9875 INR 2.8 06/30/2016 Pt Ios8924 Low Intensity - 1.5-2.0 06/30/2016 Pt Jma3064 Mod intensity - 2.0-3.0 06/30/2016 Pt Ybv8881 Hi intensity - 3.0-4.0 06/30/2016 Pt Qir7673 PT 23.7 seconds 06/12/2016 Pt Ydw4503 INR 2.3 06/12/2016 Pt Isr5585 Low Intensity - 1.5-2.0 06/12/2016 Pt Odc5694 Mod intensity - 2.0-3.0 06/12/2016 Pt Vtk2107 Hi intensity - 3.0-4.0 06/12/2016 Pt Sab2665 PT 36.5 seconds 06/06/2016 Pt Rta3683 INR 4.0 06/06/2016 Pt Pdx1069 Low Intensity - 1.5-2.0 06/06/2016 Pt Mfv8494 Mod intensity - 2.0-3.0 06/06/2016 Pt Myl2391 Hi intensity - 3.0-4.0 06/06/2016 Tibc Ord40 Iron 76 ug/dl 05/05/2016 Tibc Ord40 UIBC 210 ug/dL 05/05/2016 Tibc Ord40 TIBC 286 ug/dL 05/05/2016 Tibc Ord40 Fe-%Sat 26.6 % 05/05/2016 Pt Bqo9447 PT 29.0 seconds 05/05/2016 Pt Ahh5394 INR 2.9 05/05/2016 Pt Wgx0058 Low Intensity - 1.5-2.0 05/05/2016 Pt Jie1594 Mod intensity - 2.0-3.0 05/05/2016 Pt Lco5949 Hi intensity - 3.0-4.0 05/05/2016 Ferritin Ord22 FERRITIN 32.7 ng/mL 05/05/2016 Pt Vdc4920 PT 31.1 seconds 04/08/2016 Pt Anl5292 INR 3.2 04/08/2016 Pt Rqq6081 Low Intensity - 1.5-2.0 04/08/2016 Pt Arw0403 Mod intensity - 2.0-3.0 04/08/2016 Pt Vsf4058 Hi intensity - 3.0-4.0 04/08/2016 Cbc With [...] 32.4 pg 03/24/2016 Cbc With Differential Ord2 [place]% 11.3 % 03/24/2016 Cbc With Differential Ord2 [...] 2.29 K/ul 03/24/2016 Cbc With Differential Ord2 [place] ABS# 0.8 K/ul 03/24/2016 Cbc With Differential Ord2 Eos ABS# 0.5 K/ul 03/24/2016 Cbc With Differential Ord2 Baso ABS# 0.0 K/ul 03/24/2016 Pt Srv4823 PT 17.3 seconds 03/24/2016 Pt Vgs0230 INR 1.5 03/24/2016 Pt Kta7180 Low Intensity - 1.5-2.0 03/24/2016 Pt Fmm3568 Mod intensity - 2.0-3.0 03/24/2016 Pt Sxw4120 Hi intensity - 3.0-4.0 03/24/2016 Pt Kro2668 PT 17.8 seconds 03/12/2016 Pt Sfc0377 INR 1.5 03/12/2016 Pt Rgy5652 Low Intensity - 1.5-2.0 03/12/2016 Pt Jnp4103 Mod intensity - 2.0-3.0 03/12/2016 Pt Poy7015 Hi intensity - 3.0-4.0 03/12/2016 Urine Culture Ucult Complete NO Growth Day 2 02/29/2016 Urine Culture Ucult Preliminary NO Growth Day 1 02/29/2016 Lipid Ord30 CHOL 129 mg/dL 02/21/2016 Lipid Ord30 HDL 59.0 mg/dl 02/21/2016 Lipid Ord30 TRIG 90 mg/dL 02/21/2016 Lipid Ord30 LDL 52 mg/dL 02/21/2016 Lipid Ord30 C/HDL 2.2 Ratio 02/21/2016 Comp Metabolic Jzw143 NA 136 mEq/L 02/21/2016 Comp Metabolic Blf141 K 4.4 mEq/L 02/21/2016 Comp Metabolic Yde423 CL 102 mEq/L 02/21/2016 Comp Metabolic Cfj936 CO2 29.0 mEq/L 02/21/2016 Comp Metabolic Mhx966 ANION GAP 9 02/21/2016 Comp Metabolic Xuk315 GLUCOSE 118 mg/dL 02/21/2016 Comp Metabolic Kns555 Creat 1.0 mg/dL 02/21/2016 Comp Metabolic Qkw447 eGFR 72 ml/min/1.73m2 02/21/2016 Comp Metabolic Rqg367 BUN 23 mg/dL 02/21/2016 Comp Metabolic Bkk169 B/C Ratio 22.1 Ratio 02/21/2016 Comp Metabolic Wgr675 CALCIUM 9.9 mg/dL 02/21/2016 Comp Metabolic Oog970 ALK PHOS 57 U/L 02/21/2016 Comp Metabolic Twi765 AST(SGOT) 17 U/L 02/21/2016 Comp Metabolic Sur649 ALT(SGPT) 19 U/L 02/21/2016 Comp Metabolic Zex567 BILI T 0.6 mg/dL 02/21/2016 Comp Metabolic Iqi856 ALBUMIN 3.9 g/dL 02/21/2016 Comp Metabolic Efh301 TPRO 6.9 g/dL 02/21/2016 Comp Metabolic Why103 GLOB 3.0 g/dL 02/21/2016 Comp Metabolic Qyf310 A/G Ratio 1.3 Ratio 02/21/2016 Comp Metabolic Dfz295 Osmo 277 mOsmo 02/21/2016 Pt Rww4178 PT 19.8 seconds 02/21/2016 Pt Feu2233 INR 1.8 02/21/2016 Pt Ttj3726 Low Intensity - 1.5-2.0 02/21/2016 Pt Atk3216 Mod intensity - 2.0-3.0 02/21/2016 Pt Lgx6157 Hi intensity - 3.0-4.0 02/21/2016 Pt Xqg8111 PT 24.1 seconds 01/15/2016 Pt Mvl4709 INR 2.3 01/15/2016 Pt Nfx4890 Low Intensity - 1.5-2.0 01/15/2016 Pt Jrl8564 Mod intensity - 2.0-3.0 01/15/2016 Pt Eno0769 Hi intensity - 3.0-4.0 01/15/2016 Pt Lrf0421 PT 26.5 seconds 01/03/2016 Pt Hym1351 INR 2.6 01/03/2016 Pt Yey0432 Low Intensity - 1.5-2.0 01/03/2016 Pt Fhd0473 Mod intensity - 2.0-3.0 01/03/2016 Pt Exl5819 Hi intensity - 3.0-4.0 01/03/2016 Pt Mhg4973 PT 15.3 seconds 11/30/2015 Pt Hmb1788 INR 1.3 11/30/2015 Pt Utv1526 Low Intensity - 1.5-2.0 11/30/2015 Pt Gmz0832 Mod intensity - 2.0-3.0 11/30/2015 Pt Jkb0850 Hi intensity - 3.0-4.0 11/30/2015 Review of [...] Formatting Model/CDA Sections, Assigned to/Arabella Carballo CPT-4: [id number] 01/04/2018 URINALYSIS NONAUTO W/O SCOPE CPT-4: 61410 11/07/2016 URINALYSIS NONAUTO W/O SCOPE CPT-4: 46880 02/26/2016 ADMIN INFLUENZA VIRUS VAC CPT-4: G0008 01/03/2016 FLU VACC 4 ARIANNA 3 YRS PLUS IM SNOMED CT: 30711240 CPT-4: 62326 01/03/2016 Vital Signs Date Vital 03/08/2018 Blood Pressure 1: 124/70 Code : 8480-6 Heart Rate 1: 84 bpm Height: 5'4" SpO2: 92% Weight: 03/02/2018 Blood Pressure 1: 138/76 Code : 8480-6 Heart Rate 1: 87 bpm Height: 5'4" SpO2: 98% Weight: 02/26/2018 Blood Pressure 1: 148/68 Code : 8480-6 BMI: 35.0 Code : 80387-7 Heart Rate 1 : 80 bpm Height: 5'4" SpO2: 97% Weight: 204 lbs 01/28/2018 Blood Pressure 1: 150/60 Code : 8480-6 Heart Rate 1: 91 bpm SpO2: 92% 12/29/2017 Blood Pressure 1: 144/62 Code : 8480-6 BMI: 34.7 Code : 13400-6 Heart Rate 1 : 73 bpm Height: 5'4" SpO2: 97% Weight: 202 lbs 09/29/2017 Blood Pressure 1: 132/80 Code : 8480-6 Heart Rate 1: 76 bpm SpO2: 97% Weight: 204 lbs 08/11/2017 Blood Pressure 1: 132/66 Code : 8480-6 BMI: 35.0 Code : 95586-9 Heart Rate 1 : 81 bpm Height: 5'4" SpO2: 96% Weight: 204 lbs 03/16/2017 Blood Pressure 1: 132/70 Code : 8480-6 BMI: 34.5 Code : 36510-5 Heart Rate 1 : 78 bpm Height: 5'4" SpO2: 98% Weight: 201 lbs 12/15/2016 Blood Pressure 1: 140/80 Code : 8480-6 BMI: 34.2 Code : 41348-7 Heart Rate 1 : 69 bpm Height: 5'4" SpO2: 98% Weight: 199 lbs 11/07/2016 Blood Pressure 1: 158/82 Code : 8480-6 BMI: 34.7 Code : 65182-7 Heart Rate 1 : 76 bpm Height: 5'4" SpO2: 98% Weight: 202 lbs 10/14/2016 Blood Pressure 1: 140/80 Code : 8480-6 BMI: 34.0 Code : 75730-5 Heart Rate 1 : 79 bpm Height: 5'4" SpO2: 96% Weight: 198 lbs 09/10/2016 Blood Pressure 1: 158/80 Code : 8480-6 BMI: 34.3 Code : 91735-0 Heart Rate 1 : 75 bpm Height: 5'4" SpO2: 98% Weight: 200 lbs 07/08/2016 Blood Pressure 1: 160/74 Code : 8480-6 BMI: 35.2 Code : 39055-9 Heart Rate 1 : 94 bpm Height: 5'4" SpO2: 97% Weight: 205 lbs 06/16/2016 Blood Pressure 1: 138/76 Code : 8480-6 BMI: 35.0 Code : 43702-6 Heart Rate 1 : 68 bpm Height: 5'4" SpO2: 98% Weight: 204 lbs 01/31/2016 Blood Pressure 1: 136/64 Code : 8480-6 BMI: 33.6 Code : 87450-3 Heart Rate 1 : 92 bpm Height: 5'4" SpO2: 98% Weight: 196 lbs 01/03/2016 Blood Pressure 1: 142/68 Code : 8480-6 BMI: 33.8 Code : 61881-3 Heart Rate 1 : 80 bpm Height: 5'4" SpO2: 97% Weight: 197 lbs 11/30/2015 Blood Pressure 1: 158/80 Code : 8480-6 Heart Rate 1: 83 bpm SpO2: 98% 11/21/2015 Blood Pressure 1: 172/80 Code : 8480-6 BMI: 32.8 Code : 67174-2 Heart Rate 1 : 87 bpm Height: [...] right lower limb[ICD10: L03.115] Kelli Gallardo MD, [facility] CPT-4: 31129 03/08/2018 ([id number]) Miscellaneous no charge Diagnosis: Cellulitis of right lower limb[ICD10: L03.115] Kelli Gallardo MD, [facility] CPT-4: 41051 03/02/2018 ([id number]) [id number] EST. PATIENT, LEVEL III Diagnosis: Cellulitis of right lower limb[ICD10: L03.115] Kelli Gallardo MD, [facility] CPT-4: 78871 02/26/2018 [id number] EST. PATIENT, LEVEL III Diagnosis: Cellulitis of left lower limb[ICD10: L03.116] Octavia Gallardo MD, [facility] CPT-4: 10711 01/28/2018 ([id number]) 57832 EST. 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 PATIENT, LEVEL IV Diagnosis: Essential (primary) hypertension[ICD10: I10] Diagnosis: Urge incontinence[ICD10: N39.41] Pamela Gallardo MD [facility] CPT-4: 12361 09/29/2017 ([id number]) 16434 EST. PATIENT, LEVEL IV Diagnosis: Essential (primary) hypertension[ICD10: I10] Diagnosis: Mixed hyperlipidemia[ICD10: E78.2] Diagnosis: correction (current) use of anticoagulants[ICD10: Z79.01] Pamela Gallardo MD [facility] CPT-4: 22643 08/11/2017 ([id number]) 86774 EST. 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 PATIENT, LEVEL IV Diagnosis: Essential (primary) hypertension[ICD10: I10] Diagnosis: Mixed hyperlipidemia[ICD10: E78.2] Diagnosis: Gross hematuria[ICD10: R31.0] Pamela Gallardo MD, [facility] CPT- 4: 44245 10/14/2016 ([id number]) 32861 EST. 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 PATIENT, LEVEL III Diagnosis: Gross hematuria[ICD10: R31.0] [facility] CPT-4 : 36321 07/08/2016 ([id number]) 96954 EST. 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 PATIENT, LEVEL IV Diagnosis: Essential (primary) hypertension[ICD10: I10] Diagnosis: Mixed hyperlipidemia[ICD10: E78.2] [facility] CPT-4: 49409 01/31/2016 ([id number]) 52472 EST. PATIENT, LEVEL IV Diagnosis: Essential (primary) hypertension[ICD10: I10] Diagnosis: Mixed hyperlipidemia[ICD10: E78.2] Diagnosis: Encounter for immunization[ICD10: Z23] [facility] CPT-4: 62331 01/03/2016 ([id number]) Miscellaneous no charge Diagnosis: Essential (primary) hypertension[ICD10: I10] [facility] CPT-4: 85879 11/30/2015 ([id number]) OFFICE VISIT, NEW - LEVEL 4 Diagnosis: Essential (primary) hypertension[ICD10: I10] Diagnosis: Mixed hyperlipidemia[ICD10: E78.2] Diagnosis: Impacted cerumen, bilateral[ICD10: H61.23] [facility] CPT-4: 79652 11/21/2015 Plan of Care Planned Activity Notes Codes Status Date Visit Plan: Ulcer of right leg -healed-no further treatment indicated 03/08/2018 Patient Education: Patient Medication Summary Completed 03/08/2018 Visit Plan: Ulcer of leg -improved-continue wound care as directed-follow up in 1 week, sooner if needed 03/02/2018 Appointment: Kelli Mccullough WPtel: [phone] [phone] (15 min) Moderate 03/02/2018 Patient Education: Patient Medication Summary Completed 03/02/2018 Visit Plan: Cellulitis - continue with oral antibiotics as previously directed, return to clinic as previously directed, call for acute change in symptoms, worsening redness, warmth, discharge. 02/26/2018 Appointment: Kelli Mccullough WPtel: [phone] (15 min) Moderate 02/26/2018 Patient Education: Patient Medication Summary Completed 02/26/2018 Visit Plan: Cellulitis - pt is to follow up with his surgeon - continue with oral antibiotics as previously directed, return to clinic as previously directed, call for acute change in symptoms, worsening redness, warmth, discharge. 01/28/2018 Appointment: Octavia Zarate WPtel: [facility]5 [phone] (15 min) Moderate 01/28/2018 Patient Education: Patient [...] supportive care. 12/29/2017 Appointment: Pamela Gallardo WPtel: [facility]1 [facility] (15 min) Moderate 12/29/2017 Patient Education: Patient Medication Summary Completed 12/29/2017 Appointment: Pamela Gallardo WPtel: [facility]5 [facility] Same Day appointments 12/16/2017 Visit Plan: [...] pharmacy 09/29/2017 [phone] ([facility]) Moderate 09/29/2017 Patient Education: Patient [...] good 08/11/2017 Appointment: [phone] [place] (15 min) Moderate 08/11/2017 Patient Education: Patient Medication Summary Completed 08/11/2017 [facility]ment: [phone] [place] (15 min) Moderate 08/06/2017 App[facility]ment: [phone] [place] (15 min) Moderate 08/04/2017 Visit Plan: [...] symptoms. 03/16/2017 [facility]: [phone] [place] (15 min) Moderate 03/16/2017 Patient Education: Patient Medication Summary Completed 03/16/2017 Patient Education: Obesity Completed 03/16/2017 [facility]: [phone] ([place] min) Moderate 12/30/2016 Visit Plan: Hypertension [...] today. 12/15/2016 [facility]ment: [phone] [place] (15 min) Moderate 12/15/2016 Patient Education: Patient Medication Summary Completed 12/15/2016 Visit Plan: Iron deficiency socujn-emas-hlonti bleeding- INR has been stable-continue multivitamin with iron daily Hematuria-3+ blood in urine-check PT/INR today-culture urine 11/07/2016 Appointment: Kelli Mccullough WPtel: [phone] [phone] [place] (15 min) Moderate 11/07/2016 Patient Education: [...] to medications. 10/14/2016 Appointment: Pamela Gallardo WPtel: [phone] [facility] [place] (15 min) Moderate 10/14/2016 Patient Education: Patient Medication Summary Completed 10/14/2016 Patient Education: Obesity Completed 10/14/2016 [facility]ment: [phone] [place] (15 min) [...] or concerns. 07/08/2016 App[facility]ment[facility] ([facility]) Moderate 07/08/2016 Patient Education: [...] coumadin. 06/16/2016 Appointment: Pamela Gallardo WPtel: [phone] [facility] (15 min) Moderate 06/16/2016 Patient Education: Patient Medication Summary Completed 06/16/2016 Patient Education: Obesity Completed 06/16/2016 Appointment: Pamela Gallardo WPtel: [phone] [facility] (15 min) Moderate 05/22/2016 Patient Education: [...] to medications. 01/31/2016 Appointment: Pamela Gallardo WPtel: [phone] [facility] (15 min) Moderate 01/31/2016 Patient Education: [...] medications. 01/03/2016 App[facility]ment: [phone] ([place] min) Moderate 01/03/2016 Patient Education: Patient [...] medications. 11/21/2015 [facility]ment[phone] [facility] 11/21/2015 Patient Education: Patient Medication [...] liver response to medications. . Iron deficiency immppm-mtus-[id number] bleeding-INR has been stable-continue multivitamin with iron [...]
--- OUTSIDE RECORDS SUMMARY | 2018-07-09 11:52 | XMS REPORT | CCD ---
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 Name Role Phone PP Unavailable CCM Unavailable Summary Purpose Interface Exchange Insurance Providers Payer name Policy type / Coverage type Covered constitution party ID Effective Begin Date Effective End Date WPS Medicare Part B Medicare Part B [id number] Unknown [facility] Medicare Part B [id number] Unknown Family history Father Diagnosis Age At [...] Unknown Retired 11/21/[address]: 9886794 Former smoker Quit September 2014 11/21/[address]: 415909 Currently drinks alcohol 11/21/2015 Has the patient [...] ICD-9: 401.1 ICD-10: I10 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/2016 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 Start the day after stopping coumadin for procedure. Hold the day of surgery. The day after surgery resume BID x 4 days. Vesicare 10 mg tablet RxNorm: 148452 1 Tablet(s) PO QPM 2017 No Stop Date Active lisinopril 20 mg tablet RxNorm: 393368 TAKE ONE TABLET BY MOUTH ONCE DAILY 06/23/2017 No Stop Date Active warfarin 5 mg tablet RxNorm: 490353 1 Tablet(s) PO UD on Thursday and - goal for INR is 2.3 02/11/2017 10/08/2017 Inactive lisinopril 20 mg tablet RxNorm: 511305 1 Tablet(s) PO daily 06/22/2017 Inactive warfarin 7.5 mg tablet RxNorm: 767001 1 Tablet(s) PO daily except 10/14/2016 10/08/2017 Inactive warfarin 5 mg tablet RxNorm: 241680 1 Tablet(s) PO UD on Thursday and - goal for INR is 2.3 10/14/2016 02/10/2017 Inactive warfarin 5 mg tablet RxNorm: 952303 1 Tablet(s) PO UD on Thursday10/14/2016 10/13/2016 Inactive warfarin 7.5 mg tablet RxNorm: 521185 1 Tablet(s) PO daily 10/13/2016 Inactive warfarin 7.5 mg tablet RxNorm: 789147 1 Tablet(s) PO daily 03/201708/17/2016 Inactive Norvasc 5 mg tablet RxNorm: 719327 1 Tablet(s) PO QPM 201512/14/2016 Inactive aspirin 81 mg chewable tablet RxNorm: 237290 1 Tablet(s) PO daily No Start Date Active amlodipine 2.5 mg tablet RxNorm: 769677 1 Tablet(s) PO daily No Start Date Active PreserVision AREDS 2 oral RxNorm: 1831203 oral No Start Date Active Citracal + D3 (calcium phosphate) oral RxNorm: 2166264 oral No Start Date Active Centrum Silver tablet RxNorm: 1 Tablet(s) PO daily No Start Date Active Colace 100 mg capsule RxNorm: 3304901 1-2 Capsule(s) PO as needed constipation No Start Date Active Imodium A-D 2 mg tablet RxNorm: 445678 1 Tablet(s) PO as needed diarrhea No Start Date Active atorvastatin 20 mg tablet RxNorm: 078288 1 Tablet(s) PO daily No Start Date Active carvedilol 6.25 mg tablet RxNorm: 408461 1 Tablet(s) PO BID No Start Date Active Lupron Depot intramuscular RxNorm: 777102 intramuscular No Start Date Active Lovenox 40 mg/0.4 mL subcutaneous syringe RxNorm: 143242 1 Milliliter(s) SQ BID No Start Date 10/13/2017 Inactive Holding coumadin x 5 days. Start the day after stopping coumadin for procedure. Hold the day of surgery. The day after surgery resume BID x 4 days. warfarin 5 mg tablet RxNorm: 167514 1 Tablet(s) PO every other day No Start Date 10/13/2016 Inactive warfarin 7.5 mg tablet RxNorm: 902349 1 Tablet(s) PO every other day No Start Date 07/15/2016 Inactive lisinopril 20 mg tablet RxNorm: 185062 1 Tablet(s) PO daily No Start Date 12/28/2016 Inactive clopidogrel 75 mg tablet RxNorm: 737722 1 Tablet(s) PO daily No Start Date 03/10/2016 Inactive Medication Administered No Medication Administered data Immunizations Vaccine Codes Date Status Influenza CVX: 141 01/04/2018 completed Influenza CVX: 141 01/03/2016 completed Assessments Condition Codes Effective Dates Cellulitis of right lower limb ICD-10: L03.115 ICD-9: 682.6 03/02/2018 Cellulitis of left lower limb ICD-10: L03.116 ICD-9: 682.7 01/28/2018 Encounter for immunization ICD-10: Z23 ICD-9: 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.81 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 [...] For Visit Effective Dates Notes skin lesion 03/02/2018 skin lesion 02/26/2018 foot pain 01/28/2018 vaccination against influenza 01/04/2018 nocturia 12/29/2017 Hospital Follow Up 09/29/2017 hypertension 08/11/2017 hypertension 03/16/2017 hypertension 12/15/2016 anemia 11/07/2016 hypertension 10/14/2016 hypertension 09/10/2016 hematuria 07/08/2016 hypertension 06/16/2016 hypertension 01/31/2016 hypertension 01/03/2016 hypertension 11/21/2015 Results Observation Observation Code Item Item Code Result Date Pt [id number] PT 24.4 seconds 03/03/2018 Pt Gyf0780 INR 2.2 03/03/2018 Pt Mtc3691 Low Intensity - 1.5-2.0 03/03/2018 Pt Oea2106 Mod intensity - 2.0-3.0 03/03/2018 Pt Kus9130 Hi intensity - 3.0-4.0 03/03/2018 Pt Eqz6272 PT 28.9 seconds 02/15/2018 Pt Yhh9237 INR 2.8 02/15/2018 Pt Xaz3256 Low Intensity - 1.5-2.0 02/15/2018 Pt Sma9295 Mod intensity - 2.0-3.0 02/15/2018 Pt Bih1787 Hi intensity - 3.0-4.0 02/15/2018 Pt Uqx4120 PT 27.2 seconds 02/02/2018 Pt Jev5325 INR 2.6 02/02/2018 Pt Hay9004 Low Intensity - 1.5-2.0 02/02/2018 Pt Qpz0292 Mod intensity - 2.0-3.0 02/02/2018 Pt Aoy4682 Hi intensity - 3.0-4.0 02/02/2018 Pt Soo0503 PT 18.2 seconds 01/28/2018 Pt Kbg8826 INR 1.6 01/28/2018 Pt Kha5980 Low Intensity - 1.5-2.0 01/28/2018 Pt Qgw7730 Mod intensity - 2.0-3.0 01/28/2018 Pt Bby8975 Hi intensity - 3.0-4.0 01/28/2018 Pt Aly9416 PT 19.8 seconds 01/22/2018 Pt Vme4031 INR 1.7 01/22/2018 Pt Orn4778 Low Intensity - 1.5-2.0 01/22/2018 Pt Hoc1729 Mod intensity - 2.0-3.0 01/22/2018 Pt Dqw3759 Hi intensity - 3.0-4.0 01/22/2018 Pt Bcc4291 PT 38.3 seconds 01/15/2018 Pt Gtv3492 INR 3.8 01/15/2018 Pt Oua4915 Low Intensity - 1.5-2.0 01/15/2018 Pt Iwo7979 Mod intensity - 2.0-3.0 01/15/2018 Pt Rag2461 Hi intensity - 3.0-4.0 01/15/2018 Pt Joa7560 PT 27.1 seconds 01/05/2018 Pt Tlm2518 INR 2.5 01/05/2018 Pt Jkt9608 Low Intensity - 1.5-2.0 01/05/2018 Pt Cem6081 Mod intensity - 2.0-3.0 01/05/2018 Pt Oni1017 Hi intensity - 3.0-4.0 01/05/2018 Pt Cht4891 PT 27.2 seconds 12/25/2017 Pt Dwi1657 INR 2.5 12/25/2017 Pt Bhe4599 Low Intensity - 1.5-2.0 12/25/2017 Pt Dcu8238 Mod intensity - 2.0-3.0 12/25/2017 Pt Evk2988 Hi intensity - 3.0-4.0 12/25/2017 Pt Qor8831 PT 22.2 seconds 12/09/2017 Pt Glg1893 INR 2.0 12/09/2017 Pt Mud2073 Low Intensity - 1.5-2.0 12/09/2017 Pt Oho5442 Mod intensity - 2.0-3.0 12/09/2017 Pt Uyp9749 Hi intensity - 3.0-4.0 12/09/2017 Pt Oes0274 PT 20.5 seconds 11/27/2017 Pt Rwo1908 INR 1.8 11/27/2017 Pt Alg4315 Low Intensity - 1.5-2.0 11/27/2017 Pt Lre9471 Mod intensity - 2.0-3.0 11/27/2017 Pt Cia1752 Hi intensity - 3.0-4.0 11/27/2017 Pt Fvr3486 PT 16.8 seconds 11/23/2017 Pt Wim9208 INR 1.4 11/23/2017 Pt Spt1817 Low Intensity - 1.5-2.0 11/23/2017 Pt Ebh3779 Mod intensity - 2.0-3.0 11/23/2017 Pt Byn8961 Hi intensity - 3.0-4.0 11/23/2017 Pt Rjx4288 PT 13.4 seconds 11/20/2017 Pt Egu1367 INR 1.1 11/20/2017 Pt Bzb9210 Low Intensity - 1.5-2.0 11/20/2017 Pt Gge0413 Mod intensity - 2.0-3.0 11/20/2017 Pt Mpc5560 Hi intensity - 3.0-4.0 11/20/2017 Pt Tep1546 PT 29.3 seconds 09/22/2017 Pt Lze2677 INR 2.7 09/22/2017 Pt Wss1902 Low Intensity - 1.5-2.0 09/22/2017 Pt Vrm8836 Mod intensity - 2.0-3.0 09/22/2017 Pt Dfe2563 Hi intensity - 3.0-4.0 09/22/2017 Pt Avy1279 PT 24.6 seconds 08/27/2017 Pt Ibj8893 INR 2.2 08/27/2017 Pt Ldw6998 Low Intensity - 1.5-2.0 08/27/2017 Pt Obp2736 Mod intensity - 2.0-3.0 08/27/2017 Pt Zyk8031 Hi intensity - 3.0-4.0 08/27/2017 Pt Njt9751 PT 24.9 seconds 08/03/2017 Pt Uzg1681 INR 2.3 08/03/2017 Pt Hka0097 Low Intensity - 1.5-2.0 08/03/2017 Pt Jud4006 Mod intensity - 2.0-3.0 08/03/2017 Pt Hql9370 Hi intensity - 3.0-4.0 08/03/2017 Pt Xhp0715 PT 24.4 seconds 06/17/2017 Pt Ehl2123 INR 2.2 06/17/2017 Pt Ukk2590 Low Intensity - 1.5-2.0 06/17/2017 Pt Hya5226 Mod intensity - 2.0-3.0 06/17/2017 Pt Ual0255 Hi intensity - 3.0-4.0 06/17/2017 Pt Sfx1756 PT 26.8 seconds 06/01/2017 Pt Vqt9302 INR 2.5 06/01/2017 Pt Wxt2212 Low Intensity - 1.5-2.0 06/01/2017 Pt Qof4535 Mod intensity - 2.0-3.0 06/01/2017 Pt Jgz6705 Hi intensity - 3.0-4.0 06/01/2017 Pt Lmy7248 PT 18.8 seconds 05/18/2017 Pt Rfe0740 INR 1.6 05/18/2017 Pt Pxr8040 Low Intensity - 1.5-2.0 05/18/2017 Pt Mwz6397 Mod intensity - 2.0-3.0 05/18/2017 Pt Gjp9625 Hi intensity - 3.0-4.0 05/18/2017 Pt Baz3319 PT 18.6 seconds 04/27/2017 Pt Vvw2360 INR 1.6 04/27/2017 Pt Hra4823 Low Intensity - 1.5-2.0 04/27/2017 Pt Mnv5687 Mod intensity - 2.0-3.0 04/27/2017 Pt Zsx3244 Hi intensity - 3.0-4.0 04/27/2017 Pt Kdg7208 PT 26.1 seconds 04/13/2017 Pt Jww9949 INR 2.4 04/13/2017 Pt Sqw1925 Low Intensity - 1.5-2.0 04/13/2017 Pt Uil1807 Mod intensity - 2.0-3.0 04/13/2017 Pt Rkt2375 Hi intensity - 3.0-4.0 04/13/2017 Lipid Ord30 CHOL 115 mg/dL 03/17/2017 Lipid Ord30 HDL 54.0 mg/dl 03/17/2017 Lipid Ord30 TRIG 94 mg/dL 03/17/2017 Lipid Ord30 LDL 42 mg/dL 03/17/2017 Lipid Ord30 C/HDL 2.1 Ratio 03/17/2017 Comp Metabolic Osx624 NA 140 mEq/L 03/17/2017 Comp Metabolic Tna316 K 4.4 mEq/L 03/17/2017 Comp Metabolic Ffs704 CL 104 mEq/L 03/17/2017 Comp Metabolic Arz432 CO2 30.0 mEq/L 03/17/2017 Comp Metabolic Hwl943 ANION GAP 10 03/17/2017 Comp Metabolic Ddd657 GLUCOSE 122 mg/dL 03/17/2017 Comp Metabolic Xac154 Creat 0.9 mg/dL 03/17/2017 Comp Metabolic Joa956 eGFR 82 ml/min/1.73m2 03/17/2017 Comp Metabolic Ggb699 BUN 22 mg/dL 03/17/2017 Comp Metabolic Ojt652 B/C Ratio 23.7 Ratio 03/17/2017 Comp Metabolic Uqe890 CALCIUM 10.3 mg/dL 03/17/2017 Comp Metabolic Vpp192 ALK PHOS 62 U/L 03/17/2017 Comp Metabolic Not963 AST(SGOT) 19 U/L 03/17/2017 Comp Metabolic Kiv371 ALT(SGPT) 21 U/L 03/17/2017 Comp Metabolic Kfz901 BILI T 0.5 mg/dL 03/17/2017 Comp Metabolic Kzw863 ALBUMIN 4.1 g/dL 03/17/2017 Comp Metabolic Nhg302 TPRO 6.9 g/dL 03/17/2017 Comp Metabolic Chu575 GLOB 2.8 g/dL 03/17/2017 Comp Metabolic Tkr829 A/G Ratio 1.5 Ratio 03/17/2017 Comp Metabolic Jmo065 Osmo 284 mOsmo 03/17/2017 Comp Metabolic Cvu588 NA 140 mEq/L 03/17/2017 Comp Metabolic Lqs879 K 4.4 mEq/L 03/17/2017 Comp Metabolic Bbw243 CL 104 mEq/L 03/17/2017 Comp Metabolic Mow263 CO2 30.0 mEq/L 03/17/2017 Comp Metabolic Ieq753 ANION GAP 10 03/17/2017 Comp Metabolic Kkq973 GLUCOSE 122 mg/dL 03/17/2017 Comp Metabolic Hxd620 Creat 0.9 mg/dL 03/17/2017 Comp Metabolic Jqp181 eGFR 82 ml/min/1.73m2 03/17/2017 Comp Metabolic Lmm090 BUN 22 mg/dL 03/17/2017 Comp Metabolic Rrb028 B/C Ratio 23.7 Ratio 03/17/2017 Comp Metabolic Cty429 CALCIUM 10.3 mg/dL 03/17/2017 Comp Metabolic Dos700 ALK PHOS 62 U/L 03/17/2017 Comp Metabolic Laa631 AST(SGOT) 19 U/L 03/17/2017 Comp Metabolic Kpi511 ALT(SGPT) 21 U/L 03/17/2017 Comp Metabolic Exl335 BILI T 0.5 mg/dL 03/17/2017 Comp Metabolic Owx982 ALBUMIN 4.1 g/dL 03/17/2017 Comp Metabolic Djd934 TPRO 6.9 g/dL 03/17/2017 Comp Metabolic Obz544 GLOB 2.8 g/dL 03/17/2017 Comp Metabolic Sft925 A/G Ratio 1.5 Ratio 03/17/2017 Comp Metabolic Kdv738 Osmo 284 mOsmo 03/17/2017 Lipid Ord30 CHOL 115 mg/dL 03/17/2017 Lipid Ord30 HDL 54.0 mg/dl 03/17/2017 Lipid Ord30 TRIG 94 mg/dL 03/17/2017 Lipid Ord30 LDL 42 mg/dL 03/17/2017 Lipid Ord30 C/HDL 2.1 Ratio 03/17/2017 Pt Jsu6550 PT 23.7 seconds 03/12/2017 Pt Ojy7065 INR 2.1 03/12/2017 Pt Chz6358 Low Intensity - 1.5-2.0 03/12/2017 Pt Ewl9505 Mod intensity - 2.0-3.0 03/12/2017 Pt Oop2344 Hi intensity - 3.0-4.0 03/12/2017 Pt Syk3879 PT 21.3 seconds 02/10/2017 Pt Fha3980 INR 1.9 02/10/2017 Pt Phy7587 Low Intensity - 1.5-2.0 02/10/2017 Pt Pma1821 Mod intensity - 2.0-3.0 02/10/2017 Pt Hjr0418 Hi intensity - 3.0-4.0 02/10/2017 Pt Awh6385 PT 21.4 seconds 01/27/2017 Pt Bdx2407 INR 1.9 01/27/2017 Pt Tac5630 Low Intensity - 1.5-2.0 01/27/2017 Pt Map0580 Mod intensity - 2.0-3.0 01/27/2017 Pt Fpq5836 Hi intensity - 3.0-4.0 01/27/2017 Pt Ica6620 PT 22.0 seconds 01/19/2017 Pt Kvd4033 INR 1.9 01/19/2017 Pt Ogm3439 Low Intensity - 1.5-2.0 01/19/2017 Pt Wnr8435 Mod intensity - 2.0-3.0 01/19/2017 Pt Iog6573 Hi intensity - 3.0-4.0 01/19/2017 Pt Igf5528 PT 28.3 seconds 01/05/2017 Pt Xrt1259 INR 2.6 01/05/2017 Pt Zak6701 Low Intensity - 1.5-2.0 01/05/2017 Pt Jhz3245 Mod intensity - 2.0-3.0 01/05/2017 Pt Irg9950 Hi intensity - 3.0-4.0 01/05/2017 Pt Ubi5396 PT 29.1 seconds 12/15/2016 Pt Dcw2006 INR 2.7 12/15/2016 Pt Smh5892 Low Intensity - 1.5-2.0 12/15/2016 Pt Fht0397 Mod intensity - 2.0-3.0 12/15/2016 Pt Kll2355 Hi intensity - 3.0-4.0 12/15/2016 Urine Culture Ucult Preliminary NO Growth Day 1 11/10/2016 Urine Culture Ucult Complete NO Growth Day 2 11/10/2016 Pt Cwy0722 PT 23.7 seconds 11/07/2016 Pt Qbl5171 INR 2.1 11/07/2016 Pt Xgq3988 Low Intensity - 1.5-2.0 11/07/2016 Pt Juz0365 Mod intensity - 2.0-3.0 11/07/2016 Pt Cwk3770 Hi intensity - 3.0-4.0 11/07/2016 Pt Snf3102 PT 27.1 seconds 10/13/2016 Pt Hsh9882 INR 2.7 10/13/2016 Pt Zcu8093 Low Intensity - 1.5-2.0 10/13/2016 Pt Onv0669 Mod intensity - 2.0-3.0 10/13/2016 Pt Dbb6817 Hi intensity - 3.0-4.0 10/13/2016 Pt Oaa1700 PT 26.3 seconds 09/23/2016 Pt Zdk3271 INR 2.6 09/23/2016 Pt Agz4956 Low Intensity - 1.5-2.0 09/23/2016 Pt Swk6616 Mod intensity - 2.0-3.0 09/23/2016 Pt Znd2266 Hi intensity - 3.0-4.0 09/23/2016 Pt Ucl7373 PT 20.4 seconds 09/09/2016 Pt Xuf2059 INR 1.8 09/09/2016 Pt Eyy6883 Low Intensity - 1.5-2.0 09/09/2016 Pt Lxg0133 Mod intensity - 2.0-3.0 09/09/2016 Pt Ohn8513 Hi intensity - 3.0-4.0 09/09/2016 Pt Wvn7016 PT 24.1 seconds 08/26/2016 Pt Yps7043 INR 2.3 08/26/2016 Pt Igy2936 Low Intensity - 1.5-2.0 08/26/2016 Pt Vda0330 Mod intensity - 2.0-3.0 08/26/2016 Pt Fum4879 Hi intensity - 3.0-4.0 08/26/2016 Pt Zin1925 PT 26.1 seconds 08/12/2016 Pt Fwg0018 INR 2.6 08/12/2016 Pt Yil8299 Low Intensity - 1.5-2.0 08/12/2016 Pt Jwd3903 Mod intensity - 2.0-3.0 08/12/2016 Pt Noi1498 Hi intensity - 3.0-4.0 08/12/2016 Pt Ffq3853 PT 23.5 seconds 07/15/2016 Pt Qaf0574 INR 2.2 07/15/2016 Pt Rsw9676 Low Intensity - 1.5-2.0 07/15/2016 Pt Eqn2670 Mod intensity - 2.0-3.0 07/15/2016 Pt Gmk0063 Hi intensity - 3.0-4.0 07/15/2016 Urine Culture Ucult Preliminary NO Growth Day 1 07/10/2016 Urine Culture Ucult Complete NO Growth Day 2 07/10/2016 Pt Qlm3432 PT 27.9 seconds 06/30/2016 Pt Jlk7194 INR 2.8 06/30/2016 Pt Myy6087 Low Intensity - 1.5-2.0 06/30/2016 Pt Xyx6115 Mod intensity - 2.0-3.0 06/30/2016 Pt Icd8569 Hi intensity - 3.0-4.0 06/30/2016 Pt Wgt9703 PT 23.7 seconds 06/12/2016 Pt Nfk2208 INR 2.3 06/12/2016 Pt Fff2472 Low Intensity - 1.5-2.0 06/12/2016 Pt Ijm4297 Mod intensity - 2.0-3.0 06/12/2016 Pt Xru7026 Hi intensity - 3.0-4.0 06/12/2016 Pt Tgm8048 PT 36.5 seconds 06/06/2016 Pt Fzt6887 INR 4.0 06/06/2016 Pt Boe2973 Low Intensity - 1.5-2.0 06/06/2016 Pt Yqe5216 Mod intensity - 2.0-3.0 06/06/2016 Pt Mvz2171 Hi intensity - 3.0-4.0 06/06/2016 Tibc Ord40 Iron 76 ug/dl 05/05/2016 Tibc Ord40 UIBC 210 ug/dL 05/05/2016 Tibc Ord40 TIBC 286 ug/dL 05/05/2016 Tibc Ord40 Fe-%Sat 26.6 % 05/05/2016 Pt Zqe5300 PT 29.0 seconds 05/05/2016 Pt Kkp2292 INR 2.9 05/05/2016 Pt Zta6327 Low Intensity - 1.5-2.0 05/05/2016 Pt Zuz8805 Mod intensity - 2.0-3.0 05/05/2016 Pt Asr3707 Hi intensity - 3.0-4.0 05/05/2016 Ferritin Ord22 FERRITIN 32.7 ng/mL 05/05/2016 Pt Caf8523 PT 31.1 seconds 04/08/2016 Pt Ebl7037 INR 3.2 04/08/2016 Pt Tfn9284 Low Intensity - 1.5-2.0 04/08/2016 Pt Lmd9324 Mod intensity - 2.0-3.0 04/08/2016 Pt Keu0592 Hi intensity - 3.0-4.0 04/08/2016 Cbc With [...] 95.7 fl 03/24/2016 Cbc With Differential Ord2 [place]% 11.3 % 03/24/2016 Cbc With Differential Ord2 [...] 2.29 K/ul 03/24/2016 Cbc With Differential Ord2 [place] ABS# 0.8 K/ul 03/24/2016 Cbc With Differential Ord2 Eos ABS# 0.5 K/ul 03/24/2016 Cbc With Differential Ord2 Baso ABS# 0.0 K/ul 03/24/2016 Pt Tzf1601 PT 17.3 seconds 03/24/2016 Pt Pdo1668 INR 1.5 03/24/2016 Pt Rmu2217 Low Intensity - 1.5-2.0 03/24/2016 Pt Kfw5023 Mod intensity - 2.0-3.0 03/24/2016 Pt Ral4857 Hi intensity - 3.0-4.0 03/24/2016 Pt Yfy0721 PT 17.8 seconds 03/12/2016 Pt Bin5834 INR 1.5 03/12/2016 Pt Lfp5529 Low Intensity - 1.5-2.0 03/12/2016 Pt Bhn9603 Mod intensity - 2.0-3.0 03/12/2016 Pt Adz4797 Hi intensity - 3.0-4.0 03/12/2016 Urine Culture Ucult Complete NO Growth Day 2 02/29/2016 Urine Culture Ucult Preliminary NO Growth Day 1 02/29/2016 Lipid Ord30 CHOL 129 mg/dL 02/21/2016 Lipid Ord30 HDL 59.0 mg/dl 02/21/2016 Lipid Ord30 TRIG 90 mg/dL 02/21/2016 Lipid Ord30 LDL 52 mg/dL 02/21/2016 Lipid Ord30 C/HDL 2.2 Ratio 02/21/2016 Comp Metabolic Ugn441 NA 136 mEq/L 02/21/2016 Comp Metabolic Elg837 K 4.4 mEq/L 02/21/2016 Comp Metabolic Oca222 CL 102 mEq/L 02/21/2016 Comp Metabolic Dem344 CO2 29.0 mEq/L 02/21/2016 Comp Metabolic Ymw524 ANION GAP 9 02/21/2016 Comp Metabolic Szz023 GLUCOSE 118 mg/dL 02/21/2016 Comp Metabolic Snu376 Creat 1.0 mg/dL 02/21/2016 Comp Metabolic Nyq458 eGFR 72 ml/min/1.73m2 02/21/2016 Comp Metabolic Kzh496 BUN 23 mg/dL 02/21/2016 Comp Metabolic Xvd404 B/C Ratio 22.1 Ratio 02/21/2016 Comp Metabolic Itb021 CALCIUM 9.9 mg/dL 02/21/2016 Comp Metabolic Qmy585 ALK PHOS 57 U/L 02/21/2016 Comp Metabolic Gje980 AST(SGOT) 17 U/L 02/21/2016 Comp Metabolic Ctt387 ALT(SGPT) 19 U/L 02/21/2016 Comp Metabolic Jqq380 BILI T 0.6 mg/dL 02/21/2016 Comp Metabolic Yyv488 ALBUMIN 3.9 g/dL 02/21/2016 Comp Metabolic Ldu521 TPRO 6.9 g/dL 02/21/2016 Comp Metabolic Gla667 GLOB 3.0 g/dL 02/21/2016 Comp Metabolic Jib563 A/G Ratio 1.3 Ratio 02/21/2016 Comp Metabolic Rpv175 Osmo 277 mOsmo 02/21/2016 Pt Qfx7868 PT 19.8 seconds 02/21/2016 Pt Jnd3107 INR 1.8 02/21/2016 Pt Iql6605 Low Intensity - 1.5-2.0 02/21/2016 Pt Bkt0556 Mod intensity - 2.0-3.0 02/21/2016 Pt Qnb2046 Hi intensity - 3.0-4.0 02/21/2016 Pt Ftq3311 PT 24.1 seconds 01/15/2016 Pt Xhi2101 INR 2.3 01/15/2016 Pt Ghq8425 Low Intensity - 1.5-2.0 01/15/2016 Pt Ipw4528 Mod intensity - 2.0-3.0 01/15/2016 Pt Dct7250 Hi intensity - 3.0-4.0 01/15/2016 Pt Tvc7051 PT 26.5 seconds 01/03/2016 Pt Xlx0519 INR 2.6 01/03/2016 Pt Sra8253 Low Intensity - 1.5-2.0 01/03/2016 Pt Vxp5588 Mod intensity - 2.0-3.0 01/03/2016 Pt Oio7329 Hi intensity - 3.0-4.0 01/03/2016 Pt Mfh9652 PT 15.3 seconds 11/30/2015 Pt Ely4546 INR 1.3 11/30/2015 Pt Lel2157 Low Intensity - 1.5-2.0 11/30/2015 Pt Kht5038 Mod intensity - 2.0-3.0 11/30/2015 Pt Mvw9025 Hi intensity - 3.0-4.0 11/30/2015 Review of [...] Formatting Model/CDA Sections, Assigned to/Arabella Carballo CPT-4: 08752Ivoaqpx 01/04/2018 URINALYSIS NONAUTO W/O SCOPE CPT-4: 37114 11/07/2016 URINALYSIS NONAUTO W/O SCOPE CPT-4: 27688 02/26/2016 ADMIN INFLUENZA VIRUS VAC CPT-4: G0008 01/03/2016 FLU VACC 4 ARIANNA 3 YRS PLUS IM SNOMED CT: 32502054 CPT-4: 91210 01/03/2016 Vital Signs Date Vital 03/02/2018 Blood Pressure 1: 138/76 Code : 8480-6 Heart Rate 1: 87 bpm Height: 5'4" SpO2: 98% Weight: 02/26/2018 Blood Pressure 1: 148/68 Code : 8480-6 BMI: 35.0 Code : 14021-8 Heart Rate 1 : 80 bpm Height: 5'4" SpO2: 97% Weight: 204 lbs 01/28/2018 Blood Pressure 1: 150/60 Code : 8480-6 Heart Rate 1: 91 bpm SpO2: 92% 12/29/2017 Blood Pressure 1: 144/62 Code : 8480-6 BMI: 34.7 Code : 31874-4 Heart Rate 1 : 73 bpm Height: 5'4" SpO2: 97% Weight: 202 lbs 09/29/2017 Blood Pressure 1: 132/80 Code : 8480-6 Heart Rate 1: 76 bpm SpO2: 97% Weight: 204 lbs 08/11/2017 Blood Pressure 1: 132/66 Code : 8480-6 BMI: 35.0 Code : 82817-0 Heart Rate 1 : 81 bpm Height: 5'4" SpO2: 96% Weight: 204 lbs 03/16/2017 Blood Pressure 1: 132/70 Code : 8480-6 BMI: 34.5 Code : 86740-8 Heart Rate 1 : 78 bpm Height: 5'4" SpO2: 98% Weight: 201 lbs 12/15/2016 Blood Pressure 1: 140/80 Code : 8480-6 BMI: 34.2 Code : 81364-3 Heart Rate 1 : 69 bpm Height: 5'4" SpO2: 98% Weight: 199 lbs 11/07/2016 Blood Pressure 1: 158/82 Code : 8480-6 BMI: 34.7 Code : 60086-0 Heart Rate 1 : 76 bpm Height: 5'4" SpO2: 98% Weight: 202 lbs 10/14/2016 Blood Pressure 1: 140/80 Code : 8480-6 BMI: 34.0 Code : 49746-3 Heart Rate 1 : 79 bpm Height: 5'4" SpO2: 96% Weight: 198 lbs 09/10/2016 Blood Pressure 1: 158/80 Code : 8480-6 BMI: 34.3 Code : 46447-2 Heart Rate 1 : 75 bpm Height: 5'4" SpO2: 98% Weight: 200 lbs 07/08/2016 Blood Pressure 1: 160/74 Code : 8480-6 BMI: 35.2 Code : 04220-7 Heart Rate 1 : 94 bpm Height: 5'4" SpO2: 97% Weight: 205 lbs 06/16/2016 Blood Pressure 1: 138/76 Code : 8480-6 BMI: 35.0 Code : 87424-7 Heart Rate 1 : 68 bpm Height: 5'4" SpO2: 98% Weight: 204 lbs 01/31/2016 Blood Pressure 1: 136/64 Code : 8480-6 BMI: 33.6 Code : 24271-6 Heart Rate 1 : 92 bpm Height: 5'4" SpO2: 98% Weight: 196 lbs 01/03/2016 Blood Pressure 1: 142/68 Code : 8480-6 BMI: 33.8 Code : 40865-7 Heart Rate 1 : 80 bpm Height: 5'4" SpO2: 97% Weight: 197 lbs 11/30/2015 Blood Pressure 1: 158/80 Code : 8480-6 Heart Rate 1: 83 bpm SpO2: 98% 11/21/2015 Blood Pressure 1: 172/80 Code : 8480-6 BMI: 32.8 Code : 31441-5 Heart Rate 1 : 87 bpm Height: 5'4" SpO2: 98% Weight: 191 lbs Functional Status No Functional Status data History of Present Illness Symptom Name Status Result Effective Date Notes skin lesion Onset and Resolution sudden in [...] data Encounters Encounter Performer Location Codes Date ([id number]) Miscellaneous no charge Diagnosis: Cellulitis of right lower limb[ICD10: L03.115] [facility] CPT-4: 05698 03/02/2018 ([id number]) 32915 EST. PATIENT, LEVEL III Diagnosis: Cellulitis of right lower limb[ICD10: L03.115] Kelli Gallardo MD, [facility] CPT-4: 61681 02/26/2018 [id number] EST. PATIENT, LEVEL III Diagnosis: Cellulitis of left lower limb[ICD10: L03.116] Octavia Gallardo MD, [facility] CPT-4: 94848 01/28/2018 ([id number]) 88416 EST. PATIENT, LEVEL III Diagnosis: Essential (primary) hypertension[ICD10: I10] Diagnosis: custodial (current) use of anticoagulants[ICD10: Z79.01] Diagnosis: Nocturia[ICD10: R35.1] Pamela Gallardo MD, [facility] CPT-4: 02870 12/29/2017 ([id number]) 47193 EST. PATIENT, LEVEL IV Diagnosis: Essential (primary) hypertension[ICD10: I10] Diagnosis: Urge incontinence[ICD10: N39.41] Pamela Gallardo MD, [facility] CPT-4: 26409 09/29/2017 ([id number]) 05221 EST. PATIENT, LEVEL IV Diagnosis: Essential (primary) hypertension[ICD10: I10] Diagnosis: Mixed hyperlipidemia[ICD10: E78.2] Diagnosis: custodial (current) use of anticoagulants[ICD10: Z79.01] Pamela Gallardo MD, [facility] CPT-4: 68150 08/11/2017 ([id number]) 60049 EST. 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 PATIENT, LEVEL IV Diagnosis: Essential (primary) hypertension[ICD10: I10] Diagnosis: Mixed hyperlipidemia[ICD10: E78.2] Diagnosis: Gross hematuria[ICD10: R31.0] Pamela Gallardo MD [facility] CPT- 4: 27903 10/14/2016 ([id number]) 11480 EST. PATIENT, LEVEL IV Diagnosis: Essential (primary) hypertension[ICD10: I10] Diagnosis: custodial (current) use of anticoagulants[ICD10: Z79.01] Diagnosis: Mixed hyperlipidemia[ICD10: E78.2] Pamela Gallardo MD, [facility] CPT-4: 08123 09/10/2016 [id number] EST. PATIENT, LEVEL III Diagnosis: Gross hematuria[ICD10: R31.0] Octavia Gallardo MD, [facility] CPT-4 : 30589 07/08/2016 ([id number]) 37008 EST. 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 PATIENT, LEVEL IV Diagnosis: Essential (primary) hypertension[ICD10: I10] Diagnosis: Mixed hyperlipidemia[ICD10: E78.2] Pamela Gallardo MD, [facility] CPT-4: 09439 01/31/2016 ([id number]) 22522 EST. PATIENT, LEVEL IV Diagnosis: Essential (primary) hypertension[ICD10: I10] Diagnosis: Mixed hyperlipidemia[ICD10: E78.2] Diagnosis: Encounter for immunization[ICD10: Z23] [facility] CPT-4: 77538 01/03/2016 ([id number]) Miscellaneous no charge Diagnosis: Essential (primary) hypertension[ICD10: I10] [facility] CPT-4: 18973 11/30/2015 ([id number]) OFFICE VISIT, NEW - LEVEL 4 Diagnosis: Essential (primary) hypertension[ICD10: I10] Diagnosis: Mixed hyperlipidemia[ICD10: E78.2] Diagnosis: Impacted cerumen, bilateral[ICD10: H61.23] [facility] CPT-4: 56680 11/21/2015 Plan of Care Planned Activity Notes Codes Status Date Visit Plan: Ulcer of leg -improved-continue wound care as directed-follow up in 1 week, sooner if needed 03/02/2018 Appointment: Kelli Mccullough WPtel: [facility]7 [facility] [place] [address] (15 min) Moderate 03/02/2018 Patient Education: Patient Medication Summary Completed 03/02/2018 Visit Plan: Cellulitis - continue with oral antibiotics as previously directed, return to clinic as previously directed, call for acute change in symptoms, worsening redness, warmth, discharge. 02/26/2018 Appointment: Kelli Mccullough WPtel: [facility]5 [phone] (15 min) Moderate 02/26/2018 Patient Education: Patient Medication Summary Completed 02/26/2018 Visit Plan: Cellulitis - pt is to follow up with his surgeon - continue with oral antibiotics as previously directed, return to clinic as previously directed, call for acute change in symptoms, worsening redness, warmth, discharge. 01/28/2018 Appointment: Octavia Zarate WPtel: [facility]5 [facility]66[facility] (15 min) Moderate 01/28/2018 Patient Education: [...] supportive care. 12/29/2017 Appointment: Pamela Gallardo WPtel: [phone] [phone] (15 min) Moderate 12/29/2017 Patient Education: Patient Medication Summary Completed 12/29/2017 Appointment: Pamela Gallardo WPtel: [phone] [id number] Same Day appointments 12/16/2017 Visit Plan: Hypertension [...] the pharmacy 09/29/2017 Appointment: Pamela Gallardo WPtel: [id number] (15 min) Moderate 09/29/2017 Patient Education: Patient [...] good 08/11/2017 [phone] [place] (15 min) Moderate 08/11/2017 Patient Education: Patient Medication Summary Completed 08/11/2017 Appointment[facility] [place] [phone] [place] (15 min) Moderate 08/06/2017 Appointment: [phone] [place] (15 min) Moderate 08/04/2017 Visit Plan: [...] symptoms. 03/16/2017 App[facility]ment: [phone] [place] (15 min) Moderate 03/16/2017 Patient Education: Patient Medication Summary Completed 03/16/2017 Patient Education: Obesity Completed 03/16/2017 [facility]ment: [phone] [place] (15 min) Moderate 12/30/2016 [...] today. 12/15/2016 [facility]ment: [phone] [place] (15 min) Moderate 12/15/2016 Patient Education: Patient Medication Summary Completed 12/15/2016 Visit Plan: Iron deficiency qyeyzd-hjkx-thjwob bleeding- INR has been stable-continue multivitamin with iron daily Hematuria-3+ blood in urine-check PT/INR today-culture urine 11/07/2016 Appointment: K[facility]ccullough [facility]el[phone] [place] (15 min) Moderate 11/07/2016 Patient Education: [...] medications. 10/14/2016 App[facility]ment: [phone] [place] (15 min) Moderate 10/14/2016 Patient Education: Patient Medication Summary Completed 10/14/2016 Patient Education: Obesity Completed 10/14/2016 [facility]: [phone] [place] (15 min) Moderate 10/09/2016 [...] Zarate WPtel: [phone] [facility] (15 min) Moderate 07/08/2016 Patient Education: [...] coumadin. 06/16/2016 Appointment: Pamela Gallardo WPtel: [phone] [phone] (15 min) Moderate 06/16/2016 Patient Education: Patient Medication Summary Completed 06/16/2016 Patient Education: Obesity Completed 06/16/2016 Appointment: Pamela Gallardo WPtel: [phone] [facility] (15 min) Moderate 05/22/2016 Patient Education: Patient [...] medications. 01/31/2016 App[facility]ment: [phone] (15 min) Moderate 01/31/2016 Patient [...] medications. 01/03/2016 App[facility]ment: [phone] (15 min) Moderate 01/03/2016 Patient Education: [...] medications. 11/21/2015 App[facility]ment: [phone] [facility] 11/21/2015 Patient Education: Patient [...] week - repeat INR in two weeks. blood pressure is uncontrolled - i recommend [...] with current management - check labs today. vesicare 10mg one pill nightly - call [...] it to the pharmacy . Iron deficiency knwxry-yoag-qvmlls bleeding-INR has been stable-continue multivitamin with iron [...]
--- OUTSIDE RECORDS SUMMARY | 2018-07-09 11:54 | XMS REPORT | CCD ---
Author Author [facility] Organization [facility] Address [address] [place] [address] Phone Care Team Providers Care Chief Fundraising Officer Name Role Phone PP Unavailable CCM Unavailable Summary Purpose Interface Exchange Insurance Providers Payer name Policy type / Coverage type Covered green party ID Effective Begin Date Effective End Date WPS Medicare Part B Medicare Part B [id number] Unknown 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 ICD-9: V58.61 ICD-10: [...] hypertension ICD-9: 401.1 ICD-10: I10 01/30/2016 Active half-way (current) use of anticoagulants ICD-9: V58.61 ICD-10: [...] Fill Instructions Keflex 500 mg capsule RxNorm: 733783 1 Capsule(s) PO TID 201703/04/2018 Active Bactrim DS 800 mg-160 mg tablet RxNorm: 933693 1 Tablet(s) PO BID 01/28/2018 02/06/2018 Inactive warfarin 5 mg tablet RxNorm: 568410 1 Tablet(s) PO UD on Thursday - goal for INR is 2.3 12/25/2017 08/21/2018 Active warfarin 7.5 mg tablet RxNorm: 750326 1 Tablet(s) PO daily except Sat take 5mg 12/25/2017 12/19/2018 Active Lovenox 40 mg/0.4 mL subcutaneous syringe RxNorm: 565001 1 Milliliter(s) SQ BID 10/14/2017 No Stop Date Active Holding coumadin x 5 days. Start the day after stopping coumadin for procedure. Hold the day of surgery. The day after surgery resume BID x 4 days. Vesicare 10 mg tablet RxNorm: 647627 1 Tablet(s) PO QPM 2017 No Stop Date Active lisinopril 20 mg tablet RxNorm: 911889 TAKE ONE TABLET BY MOUTH ONCE DAILY 06/23/2017 No Stop Date Active warfarin 5 mg tablet RxNorm: 032723 1 Tablet(s) PO UD on Thursday and - goal for INR is 2.3 02/11/2017 10/08/2017 Inactive lisinopril 20 mg tablet RxNorm: 931373 1 Tablet(s) PO daily 06/22/2017 Inactive warfarin 7.5 mg tablet RxNorm: 946290 1 Tablet(s) PO daily except 10/14/2016 10/08/2017 Inactive warfarin 5 mg tablet RxNorm: 297027 1 Tablet(s) PO UD on Thursday and - goal for INR is 2.3 10/14/2016 02/10/2017 Inactive warfarin 5 mg tablet RxNorm: 458022 1 Tablet(s) PO UD on Thursday10/14/2016 10/13/2016 Inactive warfarin 7.5 mg tablet RxNorm: 045064 1 Tablet(s) PO daily 10/13/2016 Inactive warfarin 7.5 mg tablet RxNorm: 354516 1 Tablet(s) PO daily 03/201708/17/2016 Inactive Norvasc 5 mg tablet RxNorm: 210300 1 Tablet(s) PO QPM 201512/14/2016 Inactive aspirin 81 mg chewable tablet RxNorm: 653945 1 Tablet(s) PO daily No Start Date Active amlodipine 2.5 mg tablet RxNorm: 235164 1 Tablet(s) PO daily No Start Date Active PreserVision AREDS 2 oral RxNorm: 2223282 oral No Start Date Active Citracal + D3 (calcium phosphate) oral RxNorm: 8154471 oral No Start Date Active Centrum Silver tablet RxNorm: 1 Tablet(s) PO daily No Start Date Active Colace 100 mg capsule RxNorm: 0182774 1-2 Capsule(s) PO as needed constipation No Start Date Active Imodium A-D 2 mg tablet RxNorm: 033155 1 Tablet(s) PO as needed diarrhea No Start Date Active atorvastatin 20 mg tablet RxNorm: 706524 1 Tablet(s) PO daily No Start Date Active carvedilol 6.25 mg tablet RxNorm: 896384 1 Tablet(s) PO BID No Start Date Active Lupron Depot intramuscular RxNorm: 657253 intramuscular No Start Date Active Lovenox 40 mg/0.4 mL subcutaneous syringe RxNorm: 063117 1 Milliliter(s) SQ BID No Start Date 10/13/2017 Inactive Holding coumadin x 5 days. Start the day after stopping coumadin for procedure. Hold the day of surgery. The day after surgery resume BID x 4 days. warfarin 5 mg tablet RxNorm: 018868 1 Tablet(s) PO every other day No Start Date 10/13/2016 Inactive warfarin 7.5 mg tablet RxNorm: 119227 1 Tablet(s) PO every other day No Start Date 07/15/2016 Inactive lisinopril 20 mg tablet RxNorm: 935886 1 Tablet(s) PO daily No Start Date 12/28/2016 Inactive clopidogrel 75 mg tablet RxNorm: 018699 1 Tablet(s) PO daily No Start Date 03/10/2016 Inactive Medication Administered No Medication Administered data Immunizations Vaccine Codes Date Status Influenza CVX: 141 01/04/2018 completed Influenza CVX: 141 01/03/2016 completed Assessments Condition Codes Effective Dates Cellulitis of right lower limb ICD-10: L03.115 ICD-9: 682.6 03/02/2018 Cellulitis of left lower limb ICD-10: L03.116 ICD-9: 682.7 01/28/2018 Encounter for immunization ICD-10: Z23 ICD-9: 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 ICD-10: Z79.01 ICD-9: [...] Code Item Item Code Result Date Pt Zvk1373 PT 28.9 seconds 02/15/2018 Pt Isx6589 INR 2.8 02/15/2018 Pt Kqm9166 Low Intensity - 1.5-2.0 02/15/2018 Pt Ycv0534 Mod intensity - 2.0-3.0 02/15/2018 Pt Bdp0104 Hi intensity - 3.0-4.0 02/15/2018 Pt Znu2206 PT 27.2 seconds 02/02/2018 Pt Kqf1054 INR 2.6 02/02/2018 Pt Zhp0005 Low Intensity - 1.5-2.0 02/02/2018 Pt Rnj4833 Mod intensity - 2.0-3.0 02/02/2018 Pt Djj7175 Hi intensity - 3.0-4.0 02/02/2018 Pt Xzb1765 PT 18.2 seconds 01/28/2018 Pt Jkt4369 INR 1.6 01/28/2018 Pt Lxq7324 Low Intensity - 1.5-2.0 01/28/2018 Pt Kwx7454 Mod intensity - 2.0-3.0 01/28/2018 Pt Ypf2010 Hi intensity - 3.0-4.0 01/28/2018 Pt Gcy6230 PT 19.8 seconds 01/22/2018 Pt Ckx1416 INR 1.7 01/22/2018 Pt Ooo5815 Low Intensity - 1.5-2.0 01/22/2018 Pt Oqd9340 Mod intensity - 2.0-3.0 01/22/2018 Pt Apy4071 Hi intensity - 3.0-4.0 01/22/2018 Pt Ydq1599 PT 38.3 seconds 01/15/2018 Pt Yqr4525 INR 3.8 01/15/2018 Pt Zbd1694 Low Intensity - 1.5-2.0 01/15/2018 Pt Jrj8555 Mod intensity - 2.0-3.0 01/15/2018 Pt Oze5271 Hi intensity - 3.0-4.0 01/15/2018 Pt Bge3206 PT 27.1 seconds 01/05/2018 Pt Fvd7377 INR 2.5 01/05/2018 Pt Bxs5044 Low Intensity - 1.5-2.0 01/05/2018 Pt Aet0155 Mod intensity - 2.0-3.0 01/05/2018 Pt Rws4208 Hi intensity - 3.0-4.0 01/05/2018 Pt Dqg9982 PT 27.2 seconds 12/25/2017 Pt Zcz8906 INR 2.5 12/25/2017 Pt Bll5063 Low Intensity - 1.5-2.0 12/25/2017 Pt Jbu6412 Mod intensity - 2.0-3.0 12/25/2017 Pt Wqe2244 Hi intensity - 3.0-4.0 12/25/2017 Pt Ukn1876 PT 22.2 seconds 12/09/2017 Pt Ocf6307 INR 2.0 12/09/2017 Pt Whf6195 Low Intensity - 1.5-2.0 12/09/2017 Pt Vcs4271 Mod intensity - 2.0-3.0 12/09/2017 Pt Mtj9524 Hi intensity - 3.0-4.0 12/09/2017 Pt Vue0645 PT 20.5 seconds 11/27/2017 Pt Vff1386 INR 1.8 11/27/2017 Pt Akx2179 Low Intensity - 1.5-2.0 11/27/2017 Pt Eei7248 Mod intensity - 2.0-3.0 11/27/2017 Pt Ppv8396 Hi intensity - 3.0-4.0 11/27/2017 Pt Pkb3414 PT 16.8 seconds 11/23/2017 Pt Nwc4834 INR 1.4 11/23/2017 Pt Ptg4545 Low Intensity - 1.5-2.0 11/23/2017 Pt Hfs5222 Mod intensity - 2.0-3.0 11/23/2017 Pt Fre4966 Hi intensity - 3.0-4.0 11/23/2017 Pt Kzt8002 PT 13.4 seconds 11/20/2017 Pt Agl4690 INR 1.1 11/20/2017 Pt Mtq7757 Low Intensity - 1.5-2.0 11/20/2017 Pt Bnu9482 Mod intensity - 2.0-3.0 11/20/2017 Pt Nkt2957 Hi intensity - 3.0-4.0 11/20/2017 Pt Omp4410 PT 29.3 seconds 09/22/2017 Pt Kyo5268 INR 2.7 09/22/2017 Pt Hli5794 Low Intensity - 1.5-2.0 09/22/2017 Pt Ope1728 Mod intensity - 2.0-3.0 09/22/2017 Pt Inr5693 Hi intensity - 3.0-4.0 09/22/2017 Pt Aqy5792 PT 24.6 seconds 08/27/2017 Pt Qqj0190 INR 2.2 08/27/2017 Pt Qsv5033 Low Intensity - 1.5-2.0 08/27/2017 Pt Lue4411 Mod intensity - 2.0-3.0 08/27/2017 Pt Fgf2411 Hi intensity - 3.0-4.0 08/27/2017 Pt Xcq6991 PT 24.9 seconds 08/03/2017 Pt Bcb3371 INR 2.3 08/03/2017 Pt Tne6638 Low Intensity - 1.5-2.0 08/03/2017 Pt Qup8008 Mod intensity - 2.0-3.0 08/03/2017 Pt Ulr1372 Hi intensity - 3.0-4.0 08/03/2017 Pt Bzx3854 PT 24.4 seconds 06/17/2017 Pt Xax2195 INR 2.2 06/17/2017 Pt Mgw7844 Low Intensity - 1.5-2.0 06/17/2017 Pt Evl7697 Mod intensity - 2.0-3.0 06/17/2017 Pt Eht7556 Hi intensity - 3.0-4.0 06/17/2017 Pt Ojs7112 PT 26.8 seconds 06/01/2017 Pt Qnw0427 INR 2.5 06/01/2017 Pt Kvv8002 Low Intensity - 1.5-2.0 06/01/2017 Pt Fed1245 Mod intensity - 2.0-3.0 06/01/2017 Pt Ckd3400 Hi intensity - 3.0-4.0 06/01/2017 Pt Pyg3796 PT 18.8 seconds 05/18/2017 Pt Nsz5927 INR 1.6 05/18/2017 Pt Gsp2133 Low Intensity - 1.5-2.0 05/18/2017 Pt Tqz4114 Mod intensity - 2.0-3.0 05/18/2017 Pt Xpq3434 Hi intensity - 3.0-4.0 05/18/2017 Pt Gis4316 PT 18.6 seconds 04/27/2017 Pt Scg4993 INR 1.6 04/27/2017 Pt Pkw5185 Low Intensity - 1.5-2.0 04/27/2017 Pt Zbr0639 Mod intensity - 2.0-3.0 04/27/2017 Pt Kzj9926 Hi intensity - 3.0-4.0 04/27/2017 Pt Ect5121 PT 26.1 seconds 04/13/2017 Pt Hmq7752 INR 2.4 04/13/2017 Pt Rqp2487 Low Intensity - 1.5-2.0 04/13/2017 Pt Pyn3281 Mod intensity - 2.0-3.0 04/13/2017 Pt Hlv4371 Hi intensity - 3.0-4.0 04/13/2017 Comp Metabolic Nvc264 NA 140 mEq/L 03/17/2017 Comp Metabolic Hcz180 K 4.4 mEq/L 03/17/2017 Comp Metabolic Qse507 CL 104 mEq/L 03/17/2017 Comp Metabolic Ify477 CO2 30.0 mEq/L 03/17/2017 Comp Metabolic Ytr841 ANION GAP 10 03/17/2017 Comp Metabolic Vrv544 GLUCOSE 122 mg/dL 03/17/2017 Comp Metabolic Cuw090 Creat 0.9 mg/dL 03/17/2017 Comp Metabolic Yaf569 eGFR 82 ml/min/1.73m2 03/17/2017 Comp Metabolic Wrn552 BUN 22 mg/dL 03/17/2017 Comp Metabolic Laz025 B/C Ratio 23.7 Ratio 03/17/2017 Comp Metabolic Let110 CALCIUM 10.3 mg/dL 03/17/2017 Comp Metabolic Tnr769 ALK PHOS 62 U/L 03/17/2017 Comp Metabolic Xdp052 AST(SGOT) 19 U/L 03/17/2017 Comp Metabolic Nnk834 ALT(SGPT) 21 U/L 03/17/2017 Comp Metabolic Kco869 BILI T 0.5 mg/dL 03/17/2017 Comp Metabolic Acc667 ALBUMIN 4.1 g/dL 03/17/2017 Comp Metabolic Dvz961 TPRO 6.9 g/dL 03/17/2017 Comp Metabolic Gdq052 GLOB 2.8 g/dL 03/17/2017 Comp Metabolic Sxp796 A/G Ratio 1.5 Ratio 03/17/2017 Comp Metabolic Llx966 Osmo 284 mOsmo 03/17/2017 Lipid Ord30 CHOL [...] Ord30 C/HDL 2.1 Ratio 03/17/2017 Comp Metabolic Bnk225 NA 140 mEq/L 03/17/2017 Comp Metabolic Mmc455 K 4.4 mEq/L 03/17/2017 Comp Metabolic Aeh052 CL 104 mEq/L 03/17/2017 Comp Metabolic Oll812 CO2 30.0 mEq/L 03/17/2017 Comp Metabolic Abm549 ANION GAP 10 03/17/2017 Comp Metabolic Xkp681 GLUCOSE 122 mg/dL 03/17/2017 Comp Metabolic Cns162 Creat 0.9 mg/dL 03/17/2017 Comp Metabolic Etp654 eGFR 82 ml/min/1.73m2 03/17/2017 Comp Metabolic Fmz874 BUN 22 mg/dL 03/17/2017 Comp Metabolic Dbk727 B/C Ratio 23.7 Ratio 03/17/2017 Comp Metabolic Myl743 CALCIUM 10.3 mg/dL 03/17/2017 Comp Metabolic Fsa588 ALK PHOS 62 U/L 03/17/2017 Comp Metabolic Zbh963 AST(SGOT) 19 U/L 03/17/2017 Comp Metabolic Itw184 ALT(SGPT) 21 U/L 03/17/2017 Comp Metabolic Tbc668 BILI T 0.5 mg/dL 03/17/2017 Comp Metabolic Con150 ALBUMIN 4.1 g/dL 03/17/2017 Comp Metabolic Igm604 TPRO 6.9 g/dL 03/17/2017 Comp Metabolic Ihj600 GLOB 2.8 g/dL 03/17/2017 Comp Metabolic Mpc311 A/G Ratio 1.5 Ratio 03/17/2017 Comp Metabolic Oal381 Osmo 284 mOsmo 03/17/2017 Pt Evp2190 PT 23.7 seconds 03/12/2017 Pt Mny3931 INR 2.1 03/12/2017 Pt Enx0432 Low Intensity - 1.5-2.0 03/12/2017 Pt Yvx6258 Mod intensity - 2.0-3.0 03/12/2017 Pt Mhw1583 Hi intensity - 3.0-4.0 03/12/2017 Pt Bqe6528 PT 21.3 seconds 02/10/2017 Pt Wlm6568 INR 1.9 02/10/2017 Pt Mie1295 Low Intensity - 1.5-2.0 02/10/2017 Pt Ojr0326 Mod intensity - 2.0-3.0 02/10/2017 Pt Aow9297 Hi intensity - 3.0-4.0 02/10/2017 Pt Shh6169 PT 21.4 seconds 01/27/2017 Pt Ugv3717 INR 1.9 01/27/2017 Pt Bqo9869 Low Intensity - 1.5-2.0 01/27/2017 Pt Yno4555 Mod intensity - 2.0-3.0 01/27/2017 Pt Lpn4459 Hi intensity - 3.0-4.0 01/27/2017 Pt Ujo9507 PT 22.0 seconds 01/19/2017 Pt Pcm6289 INR 1.9 01/19/2017 Pt Mgh0712 Low Intensity - 1.5-2.0 01/19/2017 Pt Qib0836 Mod intensity - 2.0-3.0 01/19/2017 Pt Spf3475 Hi intensity - 3.0-4.0 01/19/2017 Pt Wcd5404 PT 28.3 seconds 01/05/2017 Pt Ygv4002 INR 2.6 01/05/2017 Pt Bua2949 Low Intensity - 1.5-2.0 01/05/2017 Pt Hsv8091 Mod intensity - 2.0-3.0 01/05/2017 Pt Wtb0053 Hi intensity - 3.0-4.0 01/05/2017 Pt Yov8118 PT 29.1 seconds 12/15/2016 Pt Pwo0292 INR 2.7 12/15/2016 Pt Cvq6498 Low Intensity - 1.5-2.0 12/15/2016 Pt Fdj9274 Mod intensity - 2.0-3.0 12/15/2016 Pt Vmg4968 Hi intensity - 3.0-4.0 12/15/2016 Urine Culture Ucult Preliminary NO Growth Day 1 11/10/2016 Urine Culture Ucult Complete NO Growth Day 2 11/10/2016 Pt Qej1566 PT 23.7 seconds 11/07/2016 Pt Lzk3292 INR 2.1 11/07/2016 Pt Sej6889 Low Intensity - 1.5-2.0 11/07/2016 Pt Gcl6861 Mod intensity - 2.0-3.0 11/07/2016 Pt Ifs0080 Hi intensity - 3.0-4.0 11/07/2016 Pt Mdt5148 PT 27.1 seconds 10/13/2016 Pt Fvo0460 INR 2.7 10/13/2016 Pt Ize1399 Low Intensity - 1.5-2.0 10/13/2016 Pt Vqo9800 Mod intensity - 2.0-3.0 10/13/2016 Pt Bvi3214 Hi intensity - 3.0-4.0 10/13/2016 Pt Xqu3616 PT 26.3 seconds 09/23/2016 Pt Isu4285 INR 2.6 09/23/2016 Pt Lhn0259 Low Intensity - 1.5-2.0 09/23/2016 Pt Dfi9071 Mod intensity - 2.0-3.0 09/23/2016 Pt Jvb4144 Hi intensity - 3.0-4.0 09/23/2016 Pt Chu5991 PT 20.4 seconds 09/09/2016 Pt Zyl9313 INR 1.8 09/09/2016 Pt Rxz9899 Low Intensity - 1.5-2.0 09/09/2016 Pt Zdg0341 Mod intensity - 2.0-3.0 09/09/2016 Pt Fpm6529 Hi intensity - 3.0-4.0 09/09/2016 Pt Pgl8799 PT 24.1 seconds 08/26/2016 Pt Gky0150 INR 2.3 08/26/2016 Pt Ftp5934 Low Intensity - 1.5-2.0 08/26/2016 Pt Nxs1846 Mod intensity - 2.0-3.0 08/26/2016 Pt Vlc1033 Hi intensity - 3.0-4.0 08/26/2016 Pt Nwj8504 PT 26.1 seconds 08/12/2016 Pt Jne7797 INR 2.6 08/12/2016 Pt Hqi5902 Low Intensity - 1.5-2.0 08/12/2016 Pt Csa5483 Mod intensity - 2.0-3.0 08/12/2016 Pt Dse6445 Hi intensity - 3.0-4.0 08/12/2016 Pt Sdb1877 PT 23.5 seconds 07/15/2016 Pt Vmf8494 INR 2.2 07/15/2016 Pt Myz1225 Low Intensity - 1.5-2.0 07/15/2016 Pt Fxd8561 Mod intensity - 2.0-3.0 07/15/2016 Pt Ouo2791 Hi intensity - 3.0-4.0 07/15/2016 Urine Culture Ucult Complete NO Growth Day 2 07/10/2016 Urine Culture Ucult Preliminary NO Growth Day 1 07/10/2016 Pt Mqg2276 PT 27.9 seconds 06/30/2016 Pt Qag3102 INR 2.8 06/30/2016 Pt Fre0727 Low Intensity - 1.5-2.0 06/30/2016 Pt Rvm5790 Mod intensity - 2.0-3.0 06/30/2016 Pt Wwc4678 Hi intensity - 3.0-4.0 06/30/2016 Pt Kao6919 PT 23.7 seconds 06/12/2016 Pt Ujv5040 INR 2.3 06/12/2016 Pt Hra1225 Low Intensity - 1.5-2.0 06/12/2016 Pt Uaa8417 Mod intensity - 2.0-3.0 06/12/2016 Pt Ruo2020 Hi intensity - 3.0-4.0 06/12/2016 Pt Snm2532 PT 36.5 seconds 06/06/2016 Pt Rvj2649 INR 4.0 06/06/2016 Pt Tan4938 Low Intensity - 1.5-2.0 06/06/2016 Pt Wpl7004 Mod intensity - 2.0-3.0 06/06/2016 Pt Kuy3334 Hi intensity - 3.0-4.0 06/06/2016 Tibc Ord40 Iron 76 ug/dl 05/05/2016 Tibc Ord40 UIBC 210 ug/dL 05/05/2016 Tibc Ord40 TIBC 286 ug/dL 05/05/2016 Tibc Ord40 Fe-%Sat 26.6 % 05/05/2016 Pt Vro9284 PT 29.0 seconds 05/05/2016 Pt Mhd5951 INR 2.9 05/05/2016 Pt Tqc1776 Low Intensity - 1.5-2.0 05/05/2016 Pt Pnl8401 Mod intensity - 2.0-3.0 05/05/2016 Pt Ysz9980 Hi intensity - 3.0-4.0 05/05/2016 Ferritin Ord22 FERRITIN 32.7 ng/mL 05/05/2016 Pt Kui2480 PT 31.1 seconds 04/08/2016 Pt Mhj0875 INR 3.2 04/08/2016 Pt Zdb9038 Low Intensity - 1.5-2.0 04/08/2016 Pt Tdi0047 Mod intensity - 2.0-3.0 04/08/2016 Pt Yce5777 Hi intensity - 3.0-4.0 04/08/2016 Cbc With [...] 34.5 % 03/24/2016 Cbc With Differential Ord2 Kemper% 11.3 % 03/24/2016 Cbc With Differential Ord2 MCH 32.4 pg 03/24/2016 Cbc With Differential Ord2 Eos% 8.1 % 03/24/2016 Cbc With Differential Ord2 MCHC 33.9 pg 03/24/2016 Cbc With Differential Ord2 PLT 279 K/ul 03/24/2016 Cbc With Differential Ord2 Baso% 0.6 % 03/24/2016 Cbc With Differential Ord2 Neut ABS# 3.02 K/ul 03/24/2016 Cbc With Differential Ord2 RDW 14.3 % 03/24/2016 Cbc With Differential Ord2 Lymph ABS# 2.29 K/ul 03/24/2016 Cbc With Differential Ord2 Kemper ABS# 0.8 K/ul 03/24/2016 Cbc With Differential Ord2 Eos ABS# 0.5 K/ul 03/24/2016 Cbc With Differential Ord2 Baso ABS# 0.0 K/ul 03/24/2016 Pt Mao0554 PT 17.3 seconds 03/24/2016 Pt Hmm1812 INR 1.5 03/24/2016 Pt Rcb5172 Low Intensity - 1.5-2.0 03/24/2016 Pt Kvk9626 Mod intensity - 2.0-3.0 03/24/2016 Pt Rfm9722 Hi intensity - 3.0-4.0 03/24/2016 Pt Ojb1828 PT 17.8 seconds 03/12/2016 Pt Ome8988 INR 1.5 03/12/2016 Pt Jue0735 Low Intensity - 1.5-2.0 03/12/2016 Pt Khm6691 Mod intensity - 2.0-3.0 03/12/2016 Pt Ntr0514 Hi intensity - 3.0-4.0 03/12/2016 Urine Culture Ucult Preliminary NO Growth Day 1 02/29/2016 Urine Culture Ucult Complete NO Growth Day 2 02/29/2016 Lipid Ord30 CHOL 129 mg/dL 02/21/2016 Lipid Ord30 HDL 59.0 mg/dl 02/21/2016 Lipid Ord30 TRIG 90 mg/dL 02/21/2016 Lipid Ord30 LDL 52 mg/dL 02/21/2016 Lipid Ord30 C/HDL 2.2 Ratio 02/21/2016 Comp Metabolic Fcl423 NA 136 mEq/L 02/21/2016 Comp Metabolic Goi605 K 4.4 mEq/L 02/21/2016 Comp Metabolic Slq699 CL 102 mEq/L 02/21/2016 Comp Metabolic Pfc209 CO2 29.0 mEq/L 02/21/2016 Comp Metabolic Osf764 ANION GAP 9 02/21/2016 Comp Metabolic Uyq055 GLUCOSE 118 mg/dL 02/21/2016 Comp Metabolic Jrz691 Creat 1.0 mg/dL 02/21/2016 Comp Metabolic Dyc229 eGFR 72 ml/min/1.73m2 02/21/2016 Comp Metabolic Sbv106 BUN 23 mg/dL 02/21/2016 Comp Metabolic Elo886 B/C Ratio 22.1 Ratio 02/21/2016 Comp Metabolic Zgm775 CALCIUM 9.9 mg/dL 02/21/2016 Comp Metabolic Kal614 ALK PHOS 57 U/L 02/21/2016 Comp Metabolic Asb267 AST(SGOT) 17 U/L 02/21/2016 Comp Metabolic Qoj531 ALT(SGPT) 19 U/L 02/21/2016 Comp Metabolic Bvp479 BILI T 0.6 mg/dL 02/21/2016 Comp Metabolic Pku153 ALBUMIN 3.9 g/dL 02/21/2016 Comp Metabolic Iir554 TPRO 6.9 g/dL 02/21/2016 Comp Metabolic Zxu823 GLOB 3.0 g/dL 02/21/2016 Comp Metabolic Iwn285 A/G Ratio 1.3 Ratio 02/21/2016 Comp Metabolic Xgj721 Osmo 277 mOsmo 02/21/2016 Pt Ixc2612 PT 19.8 seconds 02/21/2016 Pt Aoq0983 INR 1.8 02/21/2016 Pt Fem9159 Low Intensity - 1.5-2.0 02/21/2016 Pt Ioa1149 Mod intensity - 2.0-3.0 02/21/2016 Pt Tcy2013 Hi intensity - 3.0-4.0 02/21/2016 Pt Rbz0065 PT 24.1 seconds 01/15/2016 Pt Yev2192 INR 2.3 01/15/2016 Pt Rtg1897 Low Intensity - 1.5-2.0 01/15/2016 Pt Udo8501 Mod intensity - 2.0-3.0 01/15/2016 Pt Jez5011 Hi intensity - 3.0-4.0 01/15/2016 Pt Fog8943 PT 26.5 seconds 01/03/2016 Pt Ela1437 INR 2.6 01/03/2016 Pt Cws7641 Low Intensity - 1.5-2.0 01/03/2016 Pt Anp1095 Mod intensity - 2.0-3.0 01/03/2016 Pt Lkl1881 Hi intensity - 3.0-4.0 01/03/2016 Pt Lds6759 PT 15.3 seconds 11/30/2015 Pt Ytf3489 INR 1.3 11/30/2015 Pt Jeh6435 Low Intensity - 1.5-2.0 11/30/2015 Pt Khf2264 Mod intensity - 2.0-3.0 11/30/2015 Pt Jvp0823 Hi intensity - 3.0-4.0 11/30/2015 Review of [...] Formatting Model/CDA Sections, Assigned to/Arabella Carballo CPT-4: 20171Aaqyuoq 01/04/2018 URINALYSIS NONAUTO W/O SCOPE CPT-4: 24663 11/07/2016 URINALYSIS NONAUTO W/O SCOPE CPT-4: 53462 02/26/2016 ADMIN INFLUENZA VIRUS VAC CPT-4: G0008 01/03/2016 FLU VACC 4 ARIANNA 3 YRS PLUS IM SNOMED CT: 60411883 CPT-4: 56674 01/03/2016 Vital Signs Date Vital 03/02/2018 Blood Pressure 1: 138/76 Code : 8480-6 Heart Rate 1: 87 bpm Height: 5'4" SpO2: 98% Weight: 02/26/2018 Blood Pressure 1: 148/68 Code : 8480-6 BMI: 35.0 Code : 25731-3 Heart Rate 1 : 80 bpm Height: 5'4" SpO2: 97% Weight: 204 lbs 01/28/2018 Blood Pressure 1: 150/60 Code : 8480-6 Heart Rate 1: 91 bpm SpO2: 92% 12/29/2017 Blood Pressure 1: 144/62 Code : 8480-6 BMI: 34.7 Code : 55791-8 Heart Rate 1 : 73 bpm Height: 5'4" SpO2: 97% Weight: 202 lbs 09/29/2017 Blood Pressure 1: 132/80 Code : 8480-6 Heart Rate 1: 76 bpm SpO2: 97% Weight: 204 lbs 08/11/2017 Blood Pressure 1: 132/66 Code : 8480-6 BMI: 35.0 Code : 65393-6 Heart Rate 1 : 81 bpm Height: 5'4" SpO2: 96% Weight: 204 lbs 03/16/2017 Blood Pressure 1: 132/70 Code : 8480-6 BMI: 34.5 Code : 78633-8 Heart Rate 1 : 78 bpm Height: 5'4" SpO2: 98% Weight: 201 lbs 12/15/2016 Blood Pressure 1: 140/80 Code : 8480-6 BMI: 34.2 Code : 36784-0 Heart Rate 1 : 69 bpm Height: 5'4" SpO2: 98% Weight: 199 lbs 11/07/2016 Blood Pressure 1: 158/82 Code : 8480-6 BMI: 34.7 Code : 46186-0 Heart Rate 1 : 76 bpm Height: 5'4" SpO2: 98% Weight: 202 lbs 10/14/2016 Blood Pressure 1: 140/80 Code : 8480-6 BMI: 34.0 Code : 03689-0 Heart Rate 1 : 79 bpm Height: 5'4" SpO2: 96% Weight: 198 lbs 09/10/2016 Blood Pressure 1: 158/80 Code : 8480-6 BMI: 34.3 Code : 42501-5 Heart Rate 1 : 75 bpm Height: 5'4" SpO2: 98% Weight: 200 lbs 07/08/2016 Blood Pressure 1: 160/74 Code : 8480-6 BMI: 35.2 Code : 92690-8 Heart Rate 1 : 94 bpm Height: 5'4" SpO2: 97% Weight: 205 lbs 06/16/2016 Blood Pressure 1: 138/76 Code : 8480-6 BMI: 35.0 Code : 42915-9 Heart Rate 1 : 68 bpm Height: 5'4" SpO2: 98% Weight: 204 lbs 01/31/2016 Blood Pressure 1: 136/64 Code : 8480-6 BMI: 33.6 Code : 15326-8 Heart Rate 1 : 92 bpm Height: 5'4" SpO2: 98% Weight: 196 lbs 01/03/2016 Blood Pressure 1: 142/68 Code : 8480-6 BMI: 33.8 Code : 48418-2 Heart Rate 1 : 80 bpm Height: 5'4" SpO2: 97% Weight: 197 lbs 11/30/2015 Blood Pressure 1: 158/80 Code : 8480-6 Heart Rate 1: 83 bpm SpO2: 98% 11/21/2015 Blood Pressure 1: 172/80 Code : 8480-6 BMI: 32.8 Code : 36908-3 Heart Rate 1 : 87 bpm Height: [...] data Encounters Encounter Performer Location Codes Date ([id number]) Miscellaneous no charge Diagnosis: Cellulitis of right lower limb[ICD10: L03.115] [facility] CPT-4: 34251 03/02/2018 ([id number]) [id number] EST. PATIENT, LEVEL III Diagnosis: Cellulitis of right lower limb[ICD10: L03.115] [facility] CPT-4: 98574 02/26/2018 [id number] EST. PATIENT, LEVEL III Diagnosis: Cellulitis of left lower limb[ICD10: L03.116] Octavia Gallardo MD, [facility] CPT-4: 17553 01/28/2018 ([id number]) 28418 EST. 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 PATIENT, LEVEL IV Diagnosis: Essential (primary) hypertension[ICD10: I10] Diagnosis: Urge incontinence[ICD10: N39.41] Pamela Gallardo MD [facility] CPT-4: 84379 09/29/2017 ([id number]) 60451 EST. 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 PATIENT, LEVEL IV Diagnosis: Essential (primary) hypertension[ICD10: I10] Diagnosis: Mixed hyperlipidemia[ICD10: E78.2] Diagnosis: Gross hematuria[ICD10: R31.0] Pamela Gallardo MD [facility] CPT- 4: 66105 10/14/2016 ([id number]) 50677 EST. PATIENT, LEVEL IV Diagnosis: Essential (primary) hypertension[ICD10: I10] Diagnosis: half-way (current) use of anticoagulants[ICD10: Z79.01] Diagnosis: Mixed hyperlipidemia[ICD10: E78.2] Pamela Gallardo MD [facility] CPT-4: 95361 09/10/2016 78082 EST. PATIENT, LEVEL III Diagnosis: Gross hematuria[ICD10: R31.0] Octavia Gallardo MD [facility] CPT-4 : 82348 07/08/2016 ([id number]) 90866 EST. PATIENT, LEVEL IV Diagnosis: Essential (primary) hypertension[ICD10: I10] Diagnosis: Mixed hyperlipidemia[ICD10: E78.2] Diagnosis: half-way (current) use of anticoagulants[ICD10: Z79.01] Pamela Gallardo MD, [facility] CPT-4: 40012 06/16/2016 ([id number]) 31245 EST. PATIENT, LEVEL IV Diagnosis: Essential (primary) hypertension[ICD10: I10] Diagnosis: Mixed hyperlipidemia[ICD10: E78.2] Pamela Gallardo MD [facility] CPT-4: 16192 01/31/2016 ([id number]) 58534 EST. PATIENT, LEVEL IV Diagnosis: Essential (primary) hypertension[ICD10: I10] Diagnosis: Mixed hyperlipidemia[ICD10: E78.2] Diagnosis: Encounter for immunization[ICD10: Z23] Pamela Gallardo MD, [facility] CPT-4: 38808 01/03/2016 ([id number]) Miscellaneous no charge Diagnosis: Essential (primary) hypertension[ICD10: I10] Octavia Gallardo MD, [facility] CPT-4: 17925 11/30/2015 ([id number]) OFFICE VISIT, NEW - LEVEL 4 Diagnosis: Essential (primary) hypertension[ICD10: I10] Diagnosis: Mixed hyperlipidemia[ICD10: E78.2] Diagnosis: Impacted cerumen, bilateral[ICD10: H61.23] Pamela Gallardo MD, [facility] CPT-4: 72143 11/21/2015 Plan of Care Planned Activity Notes Codes Status Date Visit Plan: Ulcer of leg -improved-continue wound care as directed-follow up in 1 week, sooner if needed 03/02/2018 Patient Education: Patient Medication Summary Completed 03/02/2018 Visit Plan: Cellulitis - continue with oral antibiotics as previously directed, return to clinic as previously directed, call for acute change in symptoms, worsening redness, warmth, discharge. 02/26/2018 Appointment: Kelli Mccullough WPtel: [facility]8 [phone] (15 min) Moderate 02/26/2018 Patient Education: Patient Medication Summary Completed 02/26/2018 Visit Plan: Cellulitis - pt is to follow up with his surgeon - continue with oral antibiotics as previously directed, return to clinic as previously directed, call for acute change in symptoms, worsening redness, warmth, discharge. 01/28/2018 Appointment: Octavia Zarate WPtel: [facility]5 [facility] (15 min) Moderate 01/28/2018 Patient Education: [...] Appointment: Pamela Gallardo WPtel: [facility]4 [facility] (15 min) Moderate 12/29/2017 Patient Education: Patient Medication Summary Completed 12/29/2017 Appointment: [phone] [facility] 12/16/2017 Visit Plan: Hypertension [...] pharmacy 09/29/2017 Appointment: Pam[phone] (15 min) Moderate 09/29/2017 Patient Education: Patient [...] good 08/11/2017 Appointment: Pam[facility]ardo [phone] [facility] [place] (15 min) Moderate 08/11/2017 Patient Education: Patient Medication Summary Completed 08/11/2017 Appointment: Pam[phone] [facility] (15 min) Moderate 08/06/2017 Appointment: [phone] [facility] (15 min) Moderate 08/04/2017 Visit Plan: Hypertension [...] symptoms. 03/16/2017 Appointment: Pam[facility] Gallardo [facility]el[facility] [phone] [facility] [place] (15 min) Moderate 03/16/2017 Patient Education: Patient Medication Summary Completed 03/16/2017 Patient Education: Obesity Completed 03/16/2017 Appointment: Pam[facility]ardo [phone] [facility] (15 min) Moderate 12/30/2016 Visit Plan: Hypertension [...] today. 12/15/2016 Appointment: Pamela Gallardo WPtel: [phone] [facility] [place] (15 min) Moderate 12/15/2016 Patient Education: Patient Medication Summary Completed 12/15/2016 Visit Plan: Iron deficiency ibrwcj-vvpr-cflziy bleeding- INR has been stable-continue multivitamin with iron daily Hematuria-3+ blood in urine-check PT/INR today-culture urine 11/07/2016 Appointment: [phone] [place] (15 min) Moderate 11/07/2016 Patient Education: [...] to medications. 10/14/2016 Appointment: Pam[facility]ardo [facility]el[facility] [phone] [facility] [place] (15 min) Moderate 10/14/2016 Patient Education: Patient Medication Summary Completed 10/14/2016 Patient Education: Obesity Completed 10/14/2016 Appointment: Pam[facility] Gallardo [facility]el[facility] [phone] [facility] [place] (15 min) Moderate 10/09/2016 Visit Plan: [...] or concerns. 07/08/2016 Appointment: Octavia Zarate WPtel: [address] [place], [place] [address] [place] (15 min) Moderate 07/08/2016 Patient Education: [...] - continue with coumadin. 06/16/2016 Appointment: Pamela Gallarod WPtel: [facility]8 [facility] (15 min) Moderate 06/16/2016 Patient Education: Patient Medication Summary Completed 06/16/2016 Patient Education: Obesity Completed 06/16/2016 Appointment: Pamela Gallardo WPtel: [phone] [facility] (15 min) Moderate 05/22/2016 Patient Education: [...] to medications. 01/31/2016 Appointment: Pamela Gallardo WPtel: [facility]7 [facility] [place] (15 min) Moderate 01/31/2016 Patient [...] medications. 01/03/2016 Appointment: Pam[facility] Gallardo [facility]Ptel[facility] [phone] [facility] (15 min) Moderate 01/03/2016 Patient Education: Patient [...] medications. 11/21/2015 Appointment: Pam[facility] Gallardo [facility]el[phone] [facility] New Patient 11/21/2015 Patient Education: Patient Medication [...] any questions or concerns. . Iron deficiency wjsgjo-vjdn-ijhxky bleeding-INR has been stable-continue multivitamin with iron daily Hematuria-3+ blood in urine-check PT/INR today-culture urine
--- OUTSIDE RECORDS SUMMARY | 2018-07-09 11:57 | XMS REPORT | CCD ---
Author Author [facility] Organization [facility] Address [address] [place] [address] Phone Care Team Providers Care Survey Interviewer Name Role Phone PP Unavailable CCM Unavailable Summary Purpose Interface Exchange Insurance Providers Payer name Policy type / Coverage type Covered democrat ID Effective Begin Date Effective End Date WPS Medicare Part B Medicare Part B [id number] Unknown [facility] Medicare Part B [id number] Unknown Family history Father Diagnosis Age At [...] Unknown Retired 11/21/[address]: 3836694 Former smoker Quit September 2014 11/21/[address]: 868992 Currently drinks alcohol 11/21/2015 Has the patient [...] ICD-9: 401.1 ICD-10: I10 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/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 [...] hypertension ICD-9: 401.1 ICD-10: I10 01/30/2016 Active [facility] (current) use of anticoagulants ICD-9: V58.61 [...] Fill Instructions Keflex 500 mg capsule RxNorm: 068455 1 Capsule(s) PO TID 201703/04/2018 Active Bactrim DS 800 mg-160 mg tablet RxNorm: 991282 1 Tablet(s) PO BID 01/28/2018 02/06/2018 Inactive warfarin 5 mg tablet RxNorm: 162206 1 Tablet(s) PO UD on Thursday - goal for INR is 2.3 12/25/2017 08/21/2018 Active warfarin 7.5 mg tablet RxNorm: 851191 1 Tablet(s) PO daily except Sat take 5mg 12/25/2017 12/19/2018 Active Lovenox 40 mg/0.4 mL subcutaneous syringe RxNorm: 519624 1 Milliliter(s) SQ BID 10/14/2017 No Stop Date Active Holding coumadin x 5 days. Start the day after stopping coumadin for procedure. Hold the day of surgery. The day after surgery resume BID x 4 days. Vesicare 10 mg tablet RxNorm: 548547 1 Tablet(s) PO QPM 2017 No Stop Date Active lisinopril 20 mg tablet RxNorm: 885686 TAKE ONE TABLET BY MOUTH ONCE DAILY 06/23/2017 No Stop Date Active warfarin 5 mg tablet RxNorm: 869965 1 Tablet(s) PO UD on Thursday and - goal for INR is 2.3 02/11/2017 10/08/2017 Inactive lisinopril 20 mg tablet RxNorm: 193984 1 Tablet(s) PO daily 06/22/2017 Inactive warfarin 7.5 mg tablet RxNorm: 847573 1 Tablet(s) PO daily except 10/14/2016 10/08/2017 Inactive warfarin 5 mg tablet RxNorm: 600761 1 Tablet(s) PO UD on Thursday and - goal for INR is 2.3 10/14/2016 02/10/2017 Inactive warfarin 5 mg tablet RxNorm: 867046 1 Tablet(s) PO UD on Thursday10/14/2016 10/13/2016 Inactive warfarin 7.5 mg tablet RxNorm: 893661 1 Tablet(s) PO daily 10/13/2016 Inactive warfarin 7.5 mg tablet RxNorm: 068501 1 Tablet(s) PO daily 03/201708/17/2016 Inactive Norvasc 5 mg tablet RxNorm: 588847 1 Tablet(s) PO QPM 201512/14/2016 Inactive aspirin 81 mg chewable tablet RxNorm: 509920 1 Tablet(s) PO daily No Start Date Active amlodipine 2.5 mg tablet RxNorm: 368161 1 Tablet(s) PO daily No Start Date Active PreserVision AREDS 2 oral RxNorm: 6555154 oral No Start Date Active Citracal + D3 (calcium phosphate) oral RxNorm: 4963838 oral No Start Date Active Centrum Silver tablet RxNorm: 1 Tablet(s) PO daily No Start Date Active Colace 100 mg capsule RxNorm: 3589882 1-2 Capsule(s) PO as needed constipation No Start Date Active Imodium A-D 2 mg tablet RxNorm: 164010 1 Tablet(s) PO as needed diarrhea No Start Date Active atorvastatin 20 mg tablet RxNorm: 067907 1 Tablet(s) PO daily No Start Date Active carvedilol 6.25 mg tablet RxNorm: 186136 1 Tablet(s) PO BID No Start Date Active Lupron Depot intramuscular RxNorm: 624535 intramuscular No Start Date Active Lovenox 40 mg/0.4 mL subcutaneous syringe RxNorm: 512434 1 Milliliter(s) SQ BID No Start Date 10/13/2017 Inactive Holding coumadin x 5 days. Start the day after stopping coumadin for procedure. Hold the day of surgery. The day after surgery resume BID x 4 days. warfarin 5 mg tablet RxNorm: 024678 1 Tablet(s) PO every other day No Start Date 10/13/2016 Inactive warfarin 7.5 mg tablet RxNorm: 814534 1 Tablet(s) PO every other day No Start Date 07/15/2016 Inactive lisinopril 20 mg tablet RxNorm: 893871 1 Tablet(s) PO daily No Start Date 12/28/2016 Inactive clopidogrel 75 mg tablet RxNorm: 613269 1 Tablet(s) PO daily No Start Date [...] Code Item Item Code Result Date Pt Wsv1995 PT 28.9 seconds 02/15/2018 Pt Bbe9630 INR 2.8 02/15/2018 Pt Hik7810 Low Intensity - 1.5-2.0 02/15/2018 Pt Ekn2299 Mod intensity - 2.0-3.0 02/15/2018 Pt Del9455 Hi intensity - 3.0-4.0 02/15/2018 Pt Uga2076 PT 27.2 seconds 02/02/2018 Pt Eax7548 INR 2.6 02/02/2018 Pt Ncp4521 Low Intensity - 1.5-2.0 02/02/2018 Pt Nfo2745 Mod intensity - 2.0-3.0 02/02/2018 Pt Phu0985 Hi intensity - 3.0-4.0 02/02/2018 Pt Bvd4351 PT 18.2 seconds 01/28/2018 Pt Khm1444 INR 1.6 01/28/2018 Pt Ofb4180 Low Intensity - 1.5-2.0 01/28/2018 Pt Igi6955 Mod intensity - 2.0-3.0 01/28/2018 Pt Zzx4781 Hi intensity - 3.0-4.0 01/28/2018 Pt Pwx3301 PT 19.8 seconds 01/22/2018 Pt Rkh2232 INR 1.7 01/22/2018 Pt Kfr3041 Low Intensity - 1.5-2.0 01/22/2018 Pt Tlr6350 Mod intensity - 2.0-3.0 01/22/2018 Pt Bcz3202 Hi intensity - 3.0-4.0 01/22/2018 Pt Mpb1317 PT 38.3 seconds 01/15/2018 Pt Xul3217 INR 3.8 01/15/2018 Pt Amy4473 Low Intensity - 1.5-2.0 01/15/2018 Pt Iax4424 Mod intensity - 2.0-3.0 01/15/2018 Pt Rfp8022 Hi intensity - 3.0-4.0 01/15/2018 Pt Sys2880 PT 27.1 seconds 01/05/2018 Pt Hdj8316 INR 2.5 01/05/2018 Pt Dvb8075 Low Intensity - 1.5-2.0 01/05/2018 Pt Odt4399 Mod intensity - 2.0-3.0 01/05/2018 Pt Nmg5511 Hi intensity - 3.0-4.0 01/05/2018 Pt Rxu5469 PT 27.2 seconds 12/25/2017 Pt Dek4322 INR 2.5 12/25/2017 Pt Mdd9338 Low Intensity - 1.5-2.0 12/25/2017 Pt Gmj8991 Mod intensity - 2.0-3.0 12/25/2017 Pt Eww0660 Hi intensity - 3.0-4.0 12/25/2017 Pt Fic3246 PT 22.2 seconds 12/09/2017 Pt Qxy5955 INR 2.0 12/09/2017 Pt Hrf0717 Low Intensity - 1.5-2.0 12/09/2017 Pt Sfi0900 Mod intensity - 2.0-3.0 12/09/2017 Pt Cyv4093 Hi intensity - 3.0-4.0 12/09/2017 Pt Jfo7073 PT 20.5 seconds 11/27/2017 Pt Ppq4531 INR 1.8 11/27/2017 Pt Wya1361 Low Intensity - 1.5-2.0 11/27/2017 Pt Mgo3482 Mod intensity - 2.0-3.0 11/27/2017 Pt Hzp6692 Hi intensity - 3.0-4.0 11/27/2017 Pt Kpi7786 PT 16.8 seconds 11/23/2017 Pt Qqd0578 INR 1.4 11/23/2017 Pt Vby2385 Low Intensity - 1.5-2.0 11/23/2017 Pt Fqe3167 Mod intensity - 2.0-3.0 11/23/2017 Pt Vew7575 Hi intensity - 3.0-4.0 11/23/2017 Pt Nnn8931 PT 13.4 seconds 11/20/2017 Pt Jif2138 INR 1.1 11/20/2017 Pt Rgo5717 Low Intensity - 1.5-2.0 11/20/2017 Pt Ojs3531 Mod intensity - 2.0-3.0 11/20/2017 Pt Vhq7585 Hi intensity - 3.0-4.0 11/20/2017 Pt Vdp4772 PT 29.3 seconds 09/22/2017 Pt Bch1969 INR 2.7 09/22/2017 Pt Zcq1505 Low Intensity - 1.5-2.0 09/22/2017 Pt Cgv7152 Mod intensity - 2.0-3.0 09/22/2017 Pt Itb4949 Hi intensity - 3.0-4.0 09/22/2017 Pt Wzk5816 PT 24.6 seconds 08/27/2017 Pt Mib5918 INR 2.2 08/27/2017 Pt Mml6120 Low Intensity - 1.5-2.0 08/27/2017 Pt Vue5905 Mod intensity - 2.0-3.0 08/27/2017 Pt Spn8000 Hi intensity - 3.0-4.0 08/27/2017 Pt Dwg1216 PT 24.9 seconds 08/03/2017 Pt Dqt4231 INR 2.3 08/03/2017 Pt Rjn7704 Low Intensity - 1.5-2.0 08/03/2017 Pt Bwa8918 Mod intensity - 2.0-3.0 08/03/2017 Pt Iwp8432 Hi intensity - 3.0-4.0 08/03/2017 Pt Uip9710 PT 24.4 seconds 06/17/2017 Pt Jbo3416 INR 2.2 06/17/2017 Pt Ubd4321 Low Intensity - 1.5-2.0 06/17/2017 Pt Jds1532 Mod intensity - 2.0-3.0 06/17/2017 Pt Bju5549 Hi intensity - 3.0-4.0 06/17/2017 Pt Bqs1380 PT 26.8 seconds 06/01/2017 Pt Qxl1857 INR 2.5 06/01/2017 Pt Vji2359 Low Intensity - 1.5-2.0 06/01/2017 Pt Lww6302 Mod intensity - 2.0-3.0 06/01/2017 Pt Mcn4204 Hi intensity - 3.0-4.0 06/01/2017 Pt Rgz2552 PT 18.8 seconds 05/18/2017 Pt Old4952 INR 1.6 05/18/2017 Pt Oqn6916 Low Intensity - 1.5-2.0 05/18/2017 Pt Hfn5230 Mod intensity - 2.0-3.0 05/18/2017 Pt Zig4106 Hi intensity - 3.0-4.0 05/18/2017 Pt Lpz9730 PT 18.6 seconds 04/27/2017 Pt Vbo9043 INR 1.6 04/27/2017 Pt Efg0488 Low Intensity - 1.5-2.0 04/27/2017 Pt Klv8947 Mod intensity - 2.0-3.0 04/27/2017 Pt Hze2636 Hi intensity - 3.0-4.0 04/27/2017 Pt Eyg2572 PT 26.1 seconds 04/13/2017 Pt Qhz5312 INR 2.4 04/13/2017 Pt Ztq3358 Low Intensity - 1.5-2.0 04/13/2017 Pt Axe5829 Mod intensity - 2.0-3.0 04/13/2017 Pt Qjq5383 Hi intensity - 3.0-4.0 04/13/2017 Comp Metabolic Hul659 NA 140 mEq/L 03/17/2017 Comp Metabolic Fuo869 K 4.4 mEq/L 03/17/2017 Comp Metabolic Kjw622 CL 104 mEq/L 03/17/2017 Comp Metabolic Wtd038 CO2 30.0 mEq/L 03/17/2017 Comp Metabolic Dwk520 ANION GAP 10 03/17/2017 Comp Metabolic Lcn250 GLUCOSE 122 mg/dL 03/17/2017 Comp Metabolic Ove770 Creat 0.9 mg/dL 03/17/2017 Comp Metabolic Fys042 eGFR 82 ml/min/1.73m2 03/17/2017 Comp Metabolic Yuc518 BUN 22 mg/dL 03/17/2017 Comp Metabolic Byl625 B/C Ratio 23.7 Ratio 03/17/2017 Comp Metabolic Zdy130 CALCIUM 10.3 mg/dL 03/17/2017 Comp Metabolic Yyd016 ALK PHOS 62 U/L 03/17/2017 Comp Metabolic Vxn919 AST(SGOT) 19 U/L 03/17/2017 Comp Metabolic Ozz642 ALT(SGPT) 21 U/L 03/17/2017 Comp Metabolic Vqy398 BILI T 0.5 mg/dL 03/17/2017 Comp Metabolic Waq961 ALBUMIN 4.1 g/dL 03/17/2017 Comp Metabolic Dwv821 TPRO 6.9 g/dL 03/17/2017 Comp Metabolic Lso636 GLOB 2.8 g/dL 03/17/2017 Comp Metabolic Tip705 A/G Ratio 1.5 Ratio 03/17/2017 Comp Metabolic Ocg560 Osmo 284 mOsmo 03/17/2017 Lipid Ord30 CHOL [...] Ord30 C/HDL 2.1 Ratio 03/17/2017 Comp Metabolic Jfy583 NA 140 mEq/L 03/17/2017 Comp Metabolic Iya326 K 4.4 mEq/L 03/17/2017 Comp Metabolic Rfl057 CL 104 mEq/L 03/17/2017 Comp Metabolic Dry546 CO2 30.0 mEq/L 03/17/2017 Comp Metabolic Ppq558 ANION GAP 10 03/17/2017 Comp Metabolic Akt563 GLUCOSE 122 mg/dL 03/17/2017 Comp Metabolic Bip432 Creat 0.9 mg/dL 03/17/2017 Comp Metabolic Cfd218 eGFR 82 ml/min/1.73m2 03/17/2017 Comp Metabolic Czk739 BUN 22 mg/dL 03/17/2017 Comp Metabolic Ixo535 B/C Ratio 23.7 Ratio 03/17/2017 Comp Metabolic Nvj239 CALCIUM 10.3 mg/dL 03/17/2017 Comp Metabolic Wxh135 ALK PHOS 62 U/L 03/17/2017 Comp Metabolic Kde392 AST(SGOT) 19 U/L 03/17/2017 Comp Metabolic Zyt054 ALT(SGPT) 21 U/L 03/17/2017 Comp Metabolic Fdm728 BILI T 0.5 mg/dL 03/17/2017 Comp Metabolic Xar140 ALBUMIN 4.1 g/dL 03/17/2017 Comp Metabolic Eue545 TPRO 6.9 g/dL 03/17/2017 Comp Metabolic Vwc657 GLOB 2.8 g/dL 03/17/2017 Comp Metabolic Dwl504 A/G Ratio 1.5 Ratio 03/17/2017 Comp Metabolic Rvh673 Osmo 284 mOsmo 03/17/2017 Pt Tbx7805 PT 23.7 seconds 03/12/2017 Pt Hwo3286 INR 2.1 03/12/2017 Pt Dcp8547 Low Intensity - 1.5-2.0 03/12/2017 Pt Isz7249 Mod intensity - 2.0-3.0 03/12/2017 Pt Ucq9550 Hi intensity - 3.0-4.0 03/12/2017 Pt Iod7891 PT 21.3 seconds 02/10/2017 Pt Vhm4999 INR 1.9 02/10/2017 Pt Kjp7814 Low Intensity - 1.5-2.0 02/10/2017 Pt Txs1899 Mod intensity - 2.0-3.0 02/10/2017 Pt Cdb6288 Hi intensity - 3.0-4.0 02/10/2017 Pt Yjo7649 PT 21.4 seconds 01/27/2017 Pt Xfr5749 INR 1.9 01/27/2017 Pt Ork4961 Low Intensity - 1.5-2.0 01/27/2017 Pt Xid0760 Mod intensity - 2.0-3.0 01/27/2017 Pt Alp6976 Hi intensity - 3.0-4.0 01/27/2017 Pt Pmh3158 PT 22.0 seconds 01/19/2017 Pt Rye1214 INR 1.9 01/19/2017 Pt Qct9191 Low Intensity - 1.5-2.0 01/19/2017 Pt Bri3651 Mod intensity - 2.0-3.0 01/19/2017 Pt Hxo7712 Hi intensity - 3.0-4.0 01/19/2017 Pt Okh1140 PT 28.3 seconds 01/05/2017 Pt Iau6162 INR 2.6 01/05/2017 Pt Qwd0521 Low Intensity - 1.5-2.0 01/05/2017 Pt Bid7464 Mod intensity - 2.0-3.0 01/05/2017 Pt Hxw4683 Hi intensity - 3.0-4.0 01/05/2017 Pt Erc3937 PT 29.1 seconds 12/15/2016 Pt Tgu2205 INR 2.7 12/15/2016 Pt Cyj0434 Low Intensity - 1.5-2.0 12/15/2016 Pt Xtv6700 Mod intensity - 2.0-3.0 12/15/2016 Pt Oqd2041 Hi intensity - 3.0-4.0 12/15/2016 Urine Culture Ucult Preliminary NO Growth Day 1 11/10/2016 Urine Culture Ucult Complete NO Growth Day 2 11/10/2016 Pt Sdu5128 PT 23.7 seconds 11/07/2016 Pt Bbj8343 INR 2.1 11/07/2016 Pt Daw4992 Low Intensity - 1.5-2.0 11/07/2016 Pt Lun4971 Mod intensity - 2.0-3.0 11/07/2016 Pt Act1877 Hi intensity - 3.0-4.0 11/07/2016 Pt Mlj2683 PT 27.1 seconds 10/13/2016 Pt Azc5796 INR 2.7 10/13/2016 Pt Fil3621 Low Intensity - 1.5-2.0 10/13/2016 Pt Yzw7200 Mod intensity - 2.0-3.0 10/13/2016 Pt Plt4320 Hi intensity - 3.0-4.0 10/13/2016 Pt Yjx5298 PT 26.3 seconds 09/23/2016 Pt Ojq5196 INR 2.6 09/23/2016 Pt Nfd5359 Low Intensity - 1.5-2.0 09/23/2016 Pt Jqi7192 Mod intensity - 2.0-3.0 09/23/2016 Pt Fyk4088 Hi intensity - 3.0-4.0 09/23/2016 Pt Orl6242 PT 20.4 seconds 09/09/2016 Pt Xhb6489 INR 1.8 09/09/2016 Pt Omu4006 Low Intensity - 1.5-2.0 09/09/2016 Pt Fsj8253 Mod intensity - 2.0-3.0 09/09/2016 Pt Sws2490 Hi intensity - 3.0-4.0 09/09/2016 Pt Vrr9962 PT 24.1 seconds 08/26/2016 Pt Yte9536 INR 2.3 08/26/2016 Pt Eqr1831 Low Intensity - 1.5-2.0 08/26/2016 Pt Xse4104 Mod intensity - 2.0-3.0 08/26/2016 Pt Ouz9481 Hi intensity - 3.0-4.0 08/26/2016 Pt Obk5963 PT 26.1 seconds 08/12/2016 Pt Ggb7711 INR 2.6 08/12/2016 Pt Hdy7244 Low Intensity - 1.5-2.0 08/12/2016 Pt Ppc5046 Mod intensity - 2.0-3.0 08/12/2016 Pt Oui8266 Hi intensity - 3.0-4.0 08/12/2016 Pt Ucz1471 PT 23.5 seconds 07/15/2016 Pt Ftv4643 INR 2.2 07/15/2016 Pt Gos6571 Low Intensity - 1.5-2.0 07/15/2016 Pt Jfg6175 Mod intensity - 2.0-3.0 07/15/2016 Pt Jja5636 Hi intensity - 3.0-4.0 07/15/2016 Urine Culture Ucult Preliminary NO Growth Day 1 07/10/2016 Urine Culture Ucult Complete NO Growth Day 2 07/10/2016 Pt Zpd8111 PT 27.9 seconds 06/30/2016 Pt Xbr3162 INR 2.8 06/30/2016 Pt Uyo6750 Low Intensity - 1.5-2.0 06/30/2016 Pt Ogu4104 Mod intensity - 2.0-3.0 06/30/2016 Pt Mqh1449 Hi intensity - 3.0-4.0 06/30/2016 Pt Whl3314 PT 23.7 seconds 06/12/2016 Pt Qec7628 INR 2.3 06/12/2016 Pt Veh1594 Low Intensity - 1.5-2.0 06/12/2016 Pt Bvu9738 Mod intensity - 2.0-3.0 06/12/2016 Pt Qua7336 Hi intensity - 3.0-4.0 06/12/2016 Pt Xet1986 PT 36.5 seconds 06/06/2016 Pt Ayk2134 INR 4.0 06/06/2016 Pt Ydq6589 Low Intensity - 1.5-2.0 06/06/2016 Pt Iwj2234 Mod intensity - 2.0-3.0 06/06/2016 Pt Pyi7723 Hi intensity - 3.0-4.0 06/06/2016 Tibc Ord40 Iron 76 ug/dl 05/05/2016 Tibc Ord40 UIBC 210 ug/dL 05/05/2016 Tibc Ord40 TIBC 286 ug/dL 05/05/2016 Tibc Ord40 Fe-%Sat 26.6 % 05/05/2016 Pt Imj4538 PT 29.0 seconds 05/05/2016 Pt Imq2019 INR 2.9 05/05/2016 Pt Whn8154 Low Intensity - 1.5-2.0 05/05/2016 Pt Xey1238 Mod intensity - 2.0-3.0 05/05/2016 Pt Bxl1280 Hi intensity - 3.0-4.0 05/05/2016 Ferritin Ord22 FERRITIN 32.7 ng/mL 05/05/2016 Pt Wgd5360 PT 31.1 seconds 04/08/2016 Pt Sst0546 INR 3.2 04/08/2016 Pt Brf2437 Low Intensity - 1.5-2.0 04/08/2016 Pt Bwi9749 Mod intensity - 2.0-3.0 04/08/2016 Pt Rsq8365 Hi intensity - 3.0-4.0 04/08/2016 Cbc With [...] 32.4 pg 03/24/2016 Cbc With Differential Ord2 Leon% 11.3 % 03/24/2016 Cbc With Differential Ord2 [...] 2.29 K/ul 03/24/2016 Cbc With Differential Ord2 Leon ABS# 0.8 K/ul 03/24/2016 Cbc With Differential Ord2 Eos ABS# 0.5 K/ul 03/24/2016 Cbc With Differential Ord2 Baso ABS# 0.0 K/ul 03/24/2016 Pt Psz4927 PT 17.3 seconds 03/24/2016 Pt Pcr9331 INR 1.5 03/24/2016 Pt Hmn0647 Low Intensity - 1.5-2.0 03/24/2016 Pt Jdo6957 Mod intensity - 2.0-3.0 03/24/2016 Pt Mtg1580 Hi intensity - 3.0-4.0 03/24/2016 Pt Xfk0116 PT 17.8 seconds 03/12/2016 Pt Hlf8146 INR 1.5 03/12/2016 Pt Cny8925 Low Intensity - 1.5-2.0 03/12/2016 Pt Saw2109 Mod intensity - 2.0-3.0 03/12/2016 Pt Hyk7146 Hi intensity - 3.0-4.0 03/12/2016 Urine Culture Ucult Preliminary NO Growth Day 1 02/29/2016 Urine Culture Ucult Complete NO Growth Day 2 02/29/2016 Lipid Ord30 CHOL 129 mg/dL 02/21/2016 Lipid Ord30 HDL 59.0 mg/dl 02/21/2016 Lipid Ord30 TRIG 90 mg/dL 02/21/2016 Lipid Ord30 LDL 52 mg/dL 02/21/2016 Lipid Ord30 C/HDL 2.2 Ratio 02/21/2016 Comp Metabolic Czz463 NA 136 mEq/L 02/21/2016 Comp Metabolic Vdx266 K 4.4 mEq/L 02/21/2016 Comp Metabolic Bql721 CL 102 mEq/L 02/21/2016 Comp Metabolic Qsp760 CO2 29.0 mEq/L 02/21/2016 Comp Metabolic Xvr302 ANION GAP 9 02/21/2016 Comp Metabolic Dgx450 GLUCOSE 118 mg/dL 02/21/2016 Comp Metabolic Vsg861 Creat 1.0 mg/dL 02/21/2016 Comp Metabolic Tkf732 eGFR 72 ml/min/1.73m2 02/21/2016 Comp Metabolic Xkj145 BUN 23 mg/dL 02/21/2016 Comp Metabolic Qad164 B/C Ratio 22.1 Ratio 02/21/2016 Comp Metabolic Ygp587 CALCIUM 9.9 mg/dL 02/21/2016 Comp Metabolic Gxf989 ALK PHOS 57 U/L 02/21/2016 Comp Metabolic Cup098 AST(SGOT) 17 U/L 02/21/2016 Comp Metabolic Gtg534 ALT(SGPT) 19 U/L 02/21/2016 Comp Metabolic Fpt541 BILI T 0.6 mg/dL 02/21/2016 Comp Metabolic Nnk270 ALBUMIN 3.9 g/dL 02/21/2016 Comp Metabolic Vqi323 TPRO 6.9 g/dL 02/21/2016 Comp Metabolic Wbt299 GLOB 3.0 g/dL 02/21/2016 Comp Metabolic Jgf553 A/G Ratio 1.3 Ratio 02/21/2016 Comp Metabolic Odt001 Osmo 277 mOsmo 02/21/2016 Pt Hmu0728 PT 19.8 seconds 02/21/2016 Pt Qai5186 INR 1.8 02/21/2016 Pt Cyn1520 Low Intensity - 1.5-2.0 02/21/2016 Pt Iun5446 Mod intensity - 2.0-3.0 02/21/2016 Pt Sox1162 Hi intensity - 3.0-4.0 02/21/2016 Pt Ybd1537 PT 24.1 seconds 01/15/2016 Pt Gom2361 INR 2.3 01/15/2016 Pt Rir5256 Low Intensity - 1.5-2.0 01/15/2016 Pt Zhd8695 Mod intensity - 2.0-3.0 01/15/2016 Pt Mce0994 Hi intensity - 3.0-4.0 01/15/2016 Pt Mbi3746 PT 26.5 seconds 01/03/2016 Pt Zqh8137 INR 2.6 01/03/2016 Pt Vok6667 Low Intensity - 1.5-2.0 01/03/2016 Pt Clx4468 Mod intensity - 2.0-3.0 01/03/2016 Pt Tsg7273 Hi intensity - 3.0-4.0 01/03/2016 Pt Fsq0697 PT 15.3 seconds 11/30/2015 Pt Fie5938 INR 1.3 11/30/2015 Pt Pae0071 Low Intensity - 1.5-2.0 11/30/2015 Pt Gfq5484 Mod intensity - 2.0-3.0 11/30/2015 Pt Caz5031 Hi intensity - 3.0-4.0 11/30/2015 Review of [...] Formatting Model/CDA Sections, Assigned to/Arabella Carballo CPT-4: 45178Vluanuo 01/04/2018 URINALYSIS NONAUTO W/O SCOPE CPT-4: 61619 11/07/2016 URINALYSIS NONAUTO W/O SCOPE CPT-4: 12929 02/26/2016 ADMIN INFLUENZA VIRUS VAC CPT-4: G0008 01/03/2016 FLU VACC 4 ARIANNA 3 YRS PLUS IM SNOMED CT: 80689808 CPT-4: 37409 01/03/2016 Vital Signs Date Vital 03/02/2018 Blood Pressure 1: 138/76 Code : 8480-6 Heart Rate 1: 87 bpm Height: 5'4" SpO2: 98% Weight: 02/26/2018 Blood Pressure 1: 148/68 Code : 8480-6 BMI: 35.0 Code : 35802-8 Heart Rate 1 : 80 bpm Height: 5'4" SpO2: 97% Weight: 204 lbs 01/28/2018 Blood Pressure 1: 150/60 Code : 8480-6 Heart Rate 1: 91 bpm SpO2: 92% 12/29/2017 Blood Pressure 1: 144/62 Code : 8480-6 BMI: 34.7 Code : 37589-3 Heart Rate 1 : 73 bpm Height: 5'4" SpO2: 97% Weight: 202 lbs 09/29/2017 Blood Pressure 1: 132/80 Code : 8480-6 Heart Rate 1: 76 bpm SpO2: 97% Weight: 204 lbs 08/11/2017 Blood Pressure 1: 132/66 Code : 8480-6 BMI: 35.0 Code : 84411-0 Heart Rate 1 : 81 bpm Height: 5'4" SpO2: 96% Weight: 204 lbs 03/16/2017 Blood Pressure 1: 132/70 Code : 8480-6 BMI: 34.5 Code : 86395-2 Heart Rate 1 : 78 bpm Height: 5'4" SpO2: 98% Weight: 201 lbs 12/15/2016 Blood Pressure 1: 140/80 Code : 8480-6 BMI: 34.2 Code : 94559-9 Heart Rate 1 : 69 bpm Height: 5'4" SpO2: 98% Weight: 199 lbs 11/07/2016 Blood Pressure 1: 158/82 Code : 8480-6 BMI: 34.7 Code : 06840-5 Heart Rate 1 : 76 bpm Height: 5'4" SpO2: 98% Weight: 202 lbs 10/14/2016 Blood Pressure 1: 140/80 Code : 8480-6 BMI: 34.0 Code : 81015-7 Heart Rate 1 : 79 bpm Height: 5'4" SpO2: 96% Weight: 198 lbs 09/10/2016 Blood Pressure 1: 158/80 Code : 8480-6 BMI: 34.3 Code : 64478-9 Heart Rate 1 : 75 bpm Height: 5'4" SpO2: 98% Weight: 200 lbs 07/08/2016 Blood Pressure 1: 160/74 Code : 8480-6 BMI: 35.2 Code : 03623-5 Heart Rate 1 : 94 bpm Height: 5'4" SpO2: 97% Weight: 205 lbs 06/16/2016 Blood Pressure 1: 138/76 Code : 8480-6 BMI: 35.0 Code : 45975-7 Heart Rate 1 : 68 bpm Height: 5'4" SpO2: 98% Weight: 204 lbs 01/31/2016 Blood Pressure 1: 136/64 Code : 8480-6 BMI: 33.6 Code : 10612-0 Heart Rate 1 : 92 bpm Height: 5'4" SpO2: 98% Weight: 196 lbs 01/03/2016 Blood Pressure 1: 142/68 Code : 8480-6 BMI: 33.8 Code : 34693-2 Heart Rate 1 : 80 bpm Height: 5'4" SpO2: 97% Weight: 197 lbs 11/30/2015 Blood Pressure 1: 158/80 Code : 8480-6 Heart Rate 1: 83 bpm SpO2: 98% 11/21/2015 Blood Pressure 1: 172/80 Code : 8480-6 BMI: 32.8 Code : 24980-0 Heart Rate 1 : 87 bpm Height: [...] data Encounters Encounter Performer Location Codes Date ([id number]) Miscellaneous no charge Diagnosis: Cellulitis of right lower limb[ICD10: L03.115] [facility] CPT-4: 41603 03/02/2018 ([id number]) [id number] EST. PATIENT, LEVEL III Diagnosis: Cellulitis of right lower limb[ICD10: L03.115] [facility] CPT-4: 45701 02/26/2018 [id number] EST. PATIENT, LEVEL III Diagnosis: Cellulitis of left lower limb[ICD10: L03.116] Octavia Gallardo MD, [facility] CPT-4: 70449 01/28/2018 ([id number]) [id number] EST. 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 CPT-4: 40961 12/29/2017 ([id number]) [id number] EST. PATIENT, LEVEL IV Diagnosis: Essential (primary) hypertension[ICD10: I10] Diagnosis: Urge incontinence[ICD10: N39.41] Pamela Gallardo MD [facility] CPT-4: 98463 09/29/2017 ([id number]) 28669 EST. 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 CPT-4: 28671 08/11/2017 ([id number]) 90609 EST. 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 CPT-4: 18492 03/16/2017 ([id number]) 21862 EST. 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 CPT-4: 45884 12/15/2016 ([id number]) 32161 EST. 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 CPT-4: 17569 11/07/2016 ([id number]) 82680 EST. PATIENT, LEVEL IV Diagnosis: Essential (primary) hypertension[ICD10: I10] Diagnosis: Mixed hyperlipidemia[ICD10: E78.2] Diagnosis: Gross hematuria[ICD10: R31.0] Pamela Gallardo MD [facility] CPT- 4: 61794 10/14/2016 ([id number]) 43147 EST. PATIENT, LEVEL IV Diagnosis: Essential (primary) hypertension[ICD10: I10] Diagnosis: [facility] (current) use of anticoagulants[ICD10: Z79.01] Diagnosis: Mixed hyperlipidemia[ICD10: E78.2] Pamela Gallardo MD [facility] CPT-4: 23705 09/10/2016 28065 EST. PATIENT, LEVEL III Diagnosis: Gross hematuria[ICD10: R31.0] Octavia Gallardo MD [facility] CPT-4 : 99116 07/08/2016 ([id number]) 02367 EST. PATIENT, LEVEL IV Diagnosis: Essential (primary) hypertension[ICD10: I10] Diagnosis: Mixed hyperlipidemia[ICD10: E78.2] Diagnosis: [facility] (current) use of anticoagulants[ICD10: Z79.01] Pamela Gallardo MD, [facility] CPT-4: 03024 06/16/2016 ([id number]) 26521 EST. PATIENT, LEVEL IV Diagnosis: Essential (primary) hypertension[ICD10: I10] Diagnosis: Mixed hyperlipidemia[ICD10: E78.2] Pamela Gallardo MD [facility] CPT-4: 76715 01/31/2016 ([id number]) 99546 EST. PATIENT, LEVEL IV Diagnosis: Essential (primary) hypertension[ICD10: I10] Diagnosis: Mixed hyperlipidemia[ICD10: E78.2] Diagnosis: Encounter for immunization[ICD10: Z23] Pamela Gallardo MD, [facility] CPT-4: 98690 01/03/2016 ([id number]) Miscellaneous no charge Diagnosis: Essential (primary) hypertension[ICD10: I10] Octavia Gallardo MD, [facility] CPT-4: 84256 11/30/2015 ([id number]) OFFICE VISIT, NEW - LEVEL 4 Diagnosis: Essential (primary) hypertension[ICD10: I10] Diagnosis: Mixed hyperlipidemia[ICD10: E78.2] Diagnosis: Impacted cerumen, bilateral[ICD10: H61.23] Pamela Gallardo MD, [facility] CPT-4: 22746 11/21/2015 Plan of Care Planned Activity Notes [...] discharge. 02/26/2018 Appointment: Kelli Mccullough WPtel: [phone] (15 min) Moderate 02/26/2018 Patient Education: Patient Medication Summary Completed 02/26/2018 Visit Plan: Cellulitis - pt is to follow up with his surgeon - continue with oral antibiotics as previously directed, return to clinic as previously directed, call for acute change in symptoms, worsening redness, warmth, discharge. 01/28/2018 Appointment: Octavia Zarate WPtel: [facility] [place] (15 min) Moderate 01/28/2018 Patient [...] care. 12/29/2017 Appointment: Pamela Gallardo WPtel: [facility]1 [facility] (15 min) Moderate 12/29/2017 Patient Education: Patient Medication Summary Completed 12/29/2017 Appointment: [id number] [facility] 12/16/2017 Visit Plan: Hypertension [...] pharmacy 09/29/2017 Appointment: Pam[phone] (15 min) Moderate 09/29/2017 Patient Education: Patient [...] good 08/11/2017 Appointment: Pam[facility]ardo [facility]el[phone] [place] (15 min) Moderate 08/11/2017 Patient Education: Patient Medication Summary Completed 08/11/2017 Appointment: Pam[facility] Gallardo [facility]el[phone] (15 min) Moderate 08/06/2017 Appointment: Pam[phone] (15 min) Moderate 08/04/2017 Visit Plan: Hypertension [...] symptoms. 03/16/2017 Appointment: Pam[facility] Gallardo [facility]el[phone] [place] (15 min) Moderate 03/16/2017 Patient Education: Patient Medication Summary Completed 03/16/2017 Patient Education: Obesity Completed 03/16/2017 Appointment: Pam[facility] Gallardo [facility]el[phone] (15 min) Moderate 12/30/2016 Visit Plan: Hypertension [...] today. 12/15/2016 Appointment: Pamela Gallardo WPtel: [phone] [facility] [place] (15 min) Moderate 12/15/2016 Patient Education: Patient Medication Summary Completed 12/15/2016 Visit Plan: Iron deficiency rcbspf-zsdn-dioawm bleeding- INR has been stable-continue multivitamin with iron daily Hematuria-3+ blood in urine-check PT/INR today-culture urine 11/07/2016 Appointment: K[facility]ull[place]uh [phone] [place] (15 min) Moderate 11/07/2016 Patient Education: [...] medications. 10/14/2016 Appointment: Pam[phone] [place] (15 min) Moderate 10/14/2016 Patient Education: Patient Medication Summary Completed 10/14/2016 Patient Education: Obesity Completed 10/14/2016 Appointment: Pam[facility]ardo [facility]el[phone] [place] (15 min) Moderate 10/09/2016 Visit Plan: [...] or concerns. 07/08/2016 Appointment: Octavia Zarate WPtel: [address] [place], [place] [address] [place] (15 min) Moderate 07/08/2016 Patient Education: [...] with coumadin. 06/16/2016 Appointment: Pamela Gallardo WPtel: [facility]7 [facility] (15 min) Moderate 06/16/2016 Patient Education: Patient Medication Summary Completed 06/16/2016 Patient Education: Obesity Completed 06/16/2016 Appointment: Pamela Gallardo WPtel: [phone] [facility] (15 min) Moderate 05/22/2016 Patient Education: [...] to medications. 01/31/2016 Appointment: Pamela Gallardo WPtel: [facility]4 [facility] [place] (15 min) Moderate 01/31/2016 Patient [...] medications. 01/03/2016 Appointment: Pam[phone] (15 min) Moderate 01/03/2016 Patient Education: Patient [...] medications. 11/21/2015 Appointment: Pam[facility]ardo [facility]el[phone] New Patient 11/21/2015 Patient Education: Patient Medication [...] liver response to medications. . Iron deficiency nousjs-vyaf-jhackr bleeding-INR has been stable-continue multivitamin with iron [...]
--- OUTSIDE RECORDS SUMMARY | 2018-07-09 12:10 | XMS REPORT | Continuity of Care Document ---
Author Author [facility] Organization [facility] Address Unknown Phone Unavailable Allergies Active [...] LEYVA, EUBANKS-RUBEN Ot V10.05 04/12/2014 STEVE LEYVA, EUBANKS-RBUEN Ot V10.46 04/12/2014 STEVE LEYVA, EUBANKS-RUBEN Ot [...] LEYVA, EUBANKS-RUBEN Ot V10.46 04/18/2014 STEVE LEYVA, EUBANKS-RUBNE Ot V12.51 04/18/2014 STEVE LEYVA, EUBANKS-RUBEN Ot [...] QUYEN S Ot 414.01 CORONARY ATHEROSCLEROSIS OF [place] CORON 09/20/2014 QUYEN RAMIREZ MD S Ot [...] LEYVA, CHA-RUBEN Ot V58.69 11/08/2014 STEVE LEYVA, CAH-RUBEN Ot V67.1 11/22/2014 STEVE LEYVA, CHA-RUBEN Ot 401.9 11/22/2014 STEVE LEYVA, CHA-RUBEN Ot V10.05 11/22/2014 STEVE LEYVA, CHA-RUBEN Ot V10.46 11/22/2014 STEVE LEYVA, CHA-RUBEN Ot [...] INI 04/27/[address] IN [facility] NON-INSTITUT (PRIVATE 04/27/2015 Ot Y99.8 OTHER EXTERNAL CAUSE STATUS 04/27/2015 Ot Z79.01 RETIREMENT ( CURRENT) USE OF ANTICOAGULANT 06/26/2015 STEVE LEYVA, REECE Ot Z08 06/26/2015 STEVE LEYVA, REECE Ot Z85.038 06/26/2015 STEVE LEYVA, CHA-RUBEN Ot Z85.46 07/04/2015 STEVE LEYVA, CHA-RUBEN Ot Z08 07/04/2015 STEVE LEYVA, HCA-RUBEN Ot Z85.038 07/04/2015 STEVE LEYVA, CHA-RUBEN Ot Z85.46 08/12/2015 STEVE LEYVA, REECE Ot D64.9 ANEMIA, UNSPECIFIED 08/12/2015 STEVE LEYVA, REECE Ot Z08 ENCNTR FOR FOLLOW-UP EXAM AFTER TRTMT FO 08/12/2015 REECE WILSON MD Ot 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 08/12/2015 REECE WILSON [...] 12/27/2015 JOSE ALEJANDRO DONALDSON MD Ot Z79.01 RETIREMENT (CURRENT) USE OF ANTICOAGULANT 01/02/2016 REECE WILSON [...] FO 01/27/2016 REECE WILSON MD, Ot 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 01/27/2016 REECE WILSON [...] FO 01/28/2016 REECE WILSON MD, Ot 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 01/28/2016 REECE WILSON [...] 02/20/2016 JOSE ALEJANDRO DONALDSON MD Ot Z79.01 RETIREMENT (CURRENT) USE OF ANTICOAGULANT 02/21/2016 JOSE ALEJANDRO DONALDSON MD, Ot E78.2 MIXED HYPERLIPIDEMIA 02/21/2016 JOSE ALEJANDRO DONALDSON MD Ot I10 ESSENTIAL (PRIMARY) HYPERTENSION 02/21/2016 JOSE ALEJANDRO DONALDSON MD, Ot Z79.01 RETIREMENT (CURRENT) USE OF ANTICOAGULANT 02/21/2016 TJ FLOWER [...] FLOWER APRN Ot Y92.[address] IN [facility] NON-INSTIT[facility] (PRIVATE 02/21/2016 TJ FLOWER APRN Ot Y93.9 ACTIVITY, UNSPECIFIED 02/21/2016 TJ FLOWER APRN Ot Y99.8 OTHER EXTERNAL CAUSE STATUS 02/21/2016 TJ FLOWER APRN Ot 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 02/21/2016 TJ FLOWER APRN Ot Z79.899 OTHER 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 OPERATOR (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 THERAPY 02/21/2016 TJ FLOWER APRN [...] PROJECTED 02/22/2016 TJ FLOWER APRN Ot Y92.[address] [facility] [address] [facility] 02/22/2016 TJ FLOWER APRN Ot Y93.9 ACTIVITY, UNSPECIFIED 02/22/2016 TJ FLOWER APRN Ot Y99.8 OTHER EXTERNAL CAUSE STATUS 02/22/2016 TJ FLOWER APRN Ot 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 02/22/2016 TJ FLOWER APRN Ot Z79.899 OTHER RETIREMENT (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 THERAPY 02/22/2016 TJ FLOWER APRN [...] 02/22/2016 JOSE ALEJANDRO DONALDSON MD Ot Z79.01 RETIREMENT (CURRENT) USE OF ANTICOAGULANT 02/27/2016 TJ FLOWER [...] PROJECTED 02/27/2016 TJ FLOWER APRN Ot Y92.[address] [facility] [address] IN [facility] NON-INSTIT[facility] (PRIVATE 02/27/2016 TJ FLOWER APRN Ot Y93.9 ACTIVITY, UNSPECIFIED 02/27/2016 TJ FLOWER APRN Ot Y99.8 OTHER EXTERNAL CAUSE STATUS 02/27/2016 TJ FLOWER APRN Ot 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 02/27/2016 TJ FLOWER APRN Ot Z79.899 OTHER RETIREMENT (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 THERAPY 02/27/2016 TJ FLOWER APRN [...] FO 11/12/2016 REECE WILSON MD, Ot 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 11/12/2016 REECE WILSON MD Ot Z79.899 OTHER RETIREMENT (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 THERAPY 11/12/2016 REECE WILSON MD, [...] FO 12/01/2016 REECE WILSON MD, Ot Z79.01 RETIREMENT (CURRENT) USE OF ANTICOAGULANT 12/01/2016 REECE WILSON MD Ot Z79.899 OTHER RETIREMENT (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 THERAPY 12/01/2016 REECE WILSON MD [...] FO 12/09/2016 REECE WILSON MD Ot 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 12/09/2016 REECE WILSON MD Ot Z79.899 OTHER RETIREMENT (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 THERAPY 12/09/2016 REECE WILSON MD [...] I10 ESSENTIAL (PRIMARY) HYPERTENSION 12/22/2016 JOSE ALEJANDRO DONALSDON MD Ot 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 12/22/2016 REECE WILSON MD Ot C79.51 SECONDARY MALIGNANT NEOPLASM OF BONE 12/22/2016 REECE WILSON MD Ot D64.9 ANEMIA, UNSPECIFIED 12/22/2016 REECE WILSON MD Ot E83.52 HYPERCALCEMIA 12/22/2016 REECE WILSON MD Ot Z08 ENCNTR FOR FOLLOW-UP EXAM AFTER TRTMT FO 12/22/2016 REECE WILSON MD Ot Z79.01 RETIREMENT (CURRENT) USE OF ANTICOAGULANT 12/22/2016 REECE WILSON MD Ot Z79.899 OTHER RETIREMENT (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 THERAPY 12/22/2016 REECE WILSON MD [...] ENCOUNTER 12/22/2016 TJ FLOWER APRN Ot Z79.01 RETIREMENT (CURRENT) USE OF ANTICOAGULANT 12/22/2016 TJ FLOWER [...] ENCOUNTER 12/28/2016 TJ FLOWER APRN Ot 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 12/28/2016 TJ FLOWER [...] FO 01/03/2017 REECE WILSON MD, Ot 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 01/03/2017 REECE WILSON MD Ot Z79.899 OTHER RETIREMENT (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 THERAPY 01/03/2017 REECE WILSON MD [...] FO 02/09/2017 REECE WILSON MD Ot 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 02/09/2017 REECE WILSON MD Ot Z79.899 OTHER RETIREMENT (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 THERAPY 02/09/2017 REECE WILSON MD [...] FO 03/02/2017 REECE WILSON MD, Ot Z79.01 RETIREMENT (CURRENT) USE OF ANTICOAGULANT 03/02/2017 REECE WILSON MD Ot Z79.899 OTHER 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 OPERATOR (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 THERAPY 03/02/2017 REECE WILSON MD, [...] FO 03/05/2017 REECE WILSON MD, Ot 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 03/05/2017 REECE WILSON MD Ot Z79.899 OTHER RETIREMENT (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 THERAPY 03/05/2017 REECE WILSON MD [...] FO 04/16/2017 REECE WILSON MD, Ot Z79.01 RETIREMENT (CURRENT) USE OF ANTICOAGULANT 04/16/2017 REECE WILSON MD, Ot Z79.899 OTHER 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 OPERATOR (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 THERAPY 04/16/2017 REECE WILSON MD, [...] 07/17/2017 JOSE ALEJANDRO DONALDSON MD Ot Z79.01 RETIREMENT (CURRENT) USE OF ANTICOAGULANT 08/25/2017 REECE WILSON MD Ot C61 MALIGNANT NEOPLASM OF PROSTATE 08/25/2017 REECE WILSON MD, Ot C79.51 SECONDARY MALIGNANT NEOPLASM OF BONE 08/25/2017 REECE WILSON MD, Ot D64.9 ANEMIA, UNSPECIFIED 08/25/2017 REECE WILSON MD, Ot E83.52 HYPERCALCEMIA 08/25/2017 REECE WILSON MD, Ot 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 08/25/2017 REECE WILSON MD, Ot Z79.899 OTHER 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 OPERATOR (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 THERAPY 08/25/2017 REECE WILSON MD, [...] HYPERCALCEMIA 09/02/2017 REECE WILSON MD, Ot 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 09/02/2017 REECE WILSON MD, Ot Z79.899 OTHER RETIREMENT (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 THERAPY 09/02/2017 REECE WILSON MD, [...] 09/21/2017 JOSE ALEJANDRO DONALDSON MD Ot Z79.01 RETIREMENT (CURRENT) USE OF ANTICOAGULANT 09/21/2017 REECE WILSON MD Ot C61 MALIGNANT NEOPLASM OF PROSTATE 09/21/2017 REECE WILSON MD Ot C79.51 SECONDARY MALIGNANT NEOPLASM OF BONE 09/21/2017 REECE WILSON MD Ot D64.9 ANEMIA, UNSPECIFIED 09/21/2017 REECE WILSON MD Ot E83.52 HYPERCALCEMIA 09/21/2017 REECE WILSON MD, Ot 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 09/21/2017 REECE WILSON MD, Ot Z79.899 OTHER 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 OPERATOR (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 THERAPY 09/21/2017 REECE WILSON MD [...] AG 09/21/2017 TJ FLOWER APRN Ot 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 09/21/2017 TJ FLOWER [...] AG 09/23/2017 TJ FLOWER APRN Ot 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 09/23/2017 TJ FLOWER [...] HYPERCALCEMIA 10/15/2017 REECE WILSON MD Ot 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 10/15/2017 REECE WILSON MD Ot Z79.899 OTHER RETIREMENT (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 THERAPY 10/15/2017 REECE WILSON MD, [...] NE 11/17/2017 ORTIZ HONEYCUTT DO Ot 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 11/17/2017 ORTIZ HONEYCUTT DO Ot Z79.82 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 11/17/2017 ORTIZ HONEYCUTT [...] ENCOUNTER FOR SCREENING FOR MALIGNANT NE 11/26/2017 ORTIZ HONEYCUTT DO Ot 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 11/26/2017 ORTIZ HONEYCUTT DO Ot Z79.82 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 11/26/2017 ORTIZ HONEYCUTT [...] NEC, 01/12/2018 NALDO GLEASON MD Ot 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 01/12/2018 NALDO GLEASON MD Ot 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.82 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 01/12/2018 NALDO GLEASON [...] NEC, 01/13/2018 NALDO GLEASON MD Ot 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 01/13/2018 NALDO GLEASON MD Ot Z79.82 RETIREMENT (CURRENT) USE OF ASPIRIN 01/13/2018 NALDO GLEASON [...] OTHER SPECIFIED POSTPROCEDURAL STATES 01/14/2018 TJ FLOWER DEVELOPMENTAL EDUCATION INSTRUCTOR Ot 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 01/14/2018 TJ FLOWER DEVELOPMENTAL EDUCATION INSTRUCTOR Ot X58.XXXD EXPOSURE TO OTHER SPECIFIED FACTORS, [...] NEC, 01/21/2018 NALDO GLEASON MD, Ot 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 01/21/2018 NALDO GLEASON MD, Ot Z79.82 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 01/21/2018 NALDO GLEASON MD Ot Z80.0 FAMILY HISTORY [...] MD, Ot Z98.890 OTHER SPECIFIED POSTPROCEDURAL STATES 02/20/2018 MARYBEL REYNOLDS MD, Ot F41.9 ANXIETY DISORDER, UNSPECIFIED 02/20/2018 MARYBEL REYNOLDS MD, Ot I10 ESSENTIAL (PRIMARY) HYPERTENSION 02/20/2018 MARYBEL REYNOLDS MD, Ot M79.671 PAIN IN RIGHT FOOT 02/20/2018 MARYBEL REYNOLDS MD, Ot S82.831A OTH FRACTURE OF UPPER AND LOWER END OF R 02/20/2018 MARYBEL REYNOLDS MD, Ot W01.0XXA FALL SAME LEV FROM SLIP/TRIP W/O STRIKE 02/20/2018 MARYBEL REYNOLDS MD Ot X50.1XXA OVEREXERTION FROM PROLONGED STATIC OR AW 02/20/2018 MARYBEL REYNOLDS MD Ot Z79.01 RETIREMENT (CURRENT) USE OF ANTICOAGULANT 02/20/2018 MARYBEL REYNOLDS MD, Ot Z79.82 RETIREMENT (CURRENT) USE OF ASPIRIN 02/20/2018 MARYBEL REYNOLDS MD, Ot Z80.0 FAMILY HISTORY OF MALIGNANT NEOPLASM OF 02/20/2018 MARYBEL REYNOLDS MD, Ot Z85.038 PERSONAL HISTORY OF MALIGNANT NEOPLASM O 02/20/2018 MARYBEL REYNOLDS MD, Ot Z85.46 PERSONAL HISTORY OF MALIGNANT NEOPLASM O 02/20/2018 MARYBEL REYNOLDS MD, Ot Z87.19 PERSONAL HISTORY OF OTHER DISEASES OF TH 02/20/2018 MARYBEL REYNOLDS MD Ot Z87.891 PERSONAL HISTORY OF NICOTINE DEPENDENCE 02/20/2018 MARYBEL REYNOLDS MD, Ot Z90.49 ACQUIRED ABSENCE OF OTHER SPECIFIED PART 02/20/2018 MARYBEL REYNOLDS MD, Ot Z98.890 OTHER SPECIFIED POSTPROCEDURAL STATES 02/22/2018 MARYBEL REYNOLDS MD, Ot F41.9 ANXIETY DISORDER, UNSPECIFIED 02/22/2018 MARYBEL REYNOLDS MD, Ot I10 ESSENTIAL (PRIMARY) HYPERTENSION 02/22/2018 MARYBEL REYNOLDS MD Ot M79.671 PAIN IN RIGHT FOOT 02/22/2018 MARYBEL REYNOLDS MD, Ot S82.831A OTH FRACTURE OF UPPER AND LOWER END OF R 02/22/2018 MARYBEL REYNOLDS MD Ot W01.0XXA FALL SAME LEV FROM SLIP/TRIP W/O STRIKE 02/22/2018 MARYBEL REYNOLDS MD, Ot X50.1XXA OVEREXERTION FROM PROLONGED STATIC OR AW 02/22/2018 MARYBEL REYNOLDS MD Ot 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 02/22/2018 MARYBEL REYNOLDS MD Ot Z79.82 RETIREMENT (CURRENT) USE OF ASPIRIN 02/22/2018 MARYBEL REYNOLDS MD Ot Z80.0 FAMILY HISTORY OF MALIGNANT NEOPLASM OF 02/22/2018 MARYBEL REYNOLDS MD, Ot Z85.038 PERSONAL HISTORY OF MALIGNANT NEOPLASM O 02/22/2018 MARYBEL REYNOLDS MD, Ot Z85.46 PERSONAL HISTORY OF MALIGNANT NEOPLASM O 02/22/2018 MARYBEL REYNOLDS MD, Ot Z87.19 PERSONAL HISTORY OF OTHER DISEASES OF TH 02/22/2018 MARYBEL REYNOLDS MD, Ot Z87.891 PERSONAL HISTORY OF NICOTINE DEPENDENCE 02/22/2018 MARYBEL REYNOLDS MD, Ot Z90.49 ACQUIRED ABSENCE OF OTHER SPECIFIED PART 02/22/2018 MARYBEL REYNOLDS MD Ot Z98.890 OTHER SPECIFIED POSTPROCEDURAL STATES 03/01/2018 REECE WILSON MD, Ot C61 MALIGNANT NEOPLASM OF PROSTATE 03/01/2018 REECE WILSON MD, Ot C79.51 SECONDARY MALIGNANT NEOPLASM OF BONE 03/01/2018 REECE WILSON MD, Ot D64.9 ANEMIA, UNSPECIFIED 03/01/2018 REECE WILSON MD Ot E83.52 HYPERCALCEMIA 03/01/2018 REECE WILSON MD, Ot Z79.01 RETIREMENT (CURRENT) USE OF ANTICOAGULANT 03/01/2018 REECE WILSON MD, Ot Z79.899 OTHER 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 OPERATOR (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 THERAPY 03/01/2018 REECE IWLSON MD, Ot Z85.038 PERSONAL HISTORY OF MALIGNANT NEOPLASM O 03/01/2018 REECE WILSON MD, Ot Z86.718 PERSONAL HISTORY OF OTHER VENOUS THROMBO 03/01/2018 REECE WILSON MD, Ot Z90.49 ACQUIRED ABSENCE OF OTHER SPECIFIED PART 04/19/2018 REECE WILSON MD, Ot MALIGNANT NEOPLASM OF PROSTATE 04/19/2018 REECE WILSON MD, Ot C79.51 SECONDARY MALIGNANT NEOPLASM OF BONE 04/19/2018 REECE WILSON MD, Ot D64.9 ANEMIA, UNSPECIFIED 04/19/2018 REECE WILSON MD, Ot E83.52 HYPERCALCEMIA 04/19/2018 REECE WILSON MD, Ot 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 04/19/2018 REECE WILSON MD, Ot Z79.899 OTHER RETIREMENT (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 THERAPY 04/19/2018 REECE WILSON MD, Ot Z85.038 PERSONAL HISTORY OF MALIGNANT NEOPLASM O 04/19/2018 REECE WILSON MD, Ot Z86.718 PERSONAL HISTORY OF OTHER VENOUS THROMBO 04/19/2018 REECE WILSON MD Ot Z90.49 ACQUIRED ABSENCE OF OTHER SPECIFIED PART 04/20/2018 REECE WILSON MD, Ot C61 MALIGNANT NEOPLASM OF PROSTATE 04/20/2018 REECE WILSON MD, Ot C79.51 SECONDARY MALIGNANT NEOPLASM OF BONE 04/20/2018 REECE WILSON MD, Ot D64.9 ANEMIA, UNSPECIFIED 04/20/2018 REECE WILSON MD, Ot E83.52 HYPERCALCEMIA 04/20/2018 REECE WILSON MD, Ot 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 Type Provider Facility Loc./Unit Complaint [id number] 04/20/2018 00:11:00 04/20/2018 23:59:59 CLS Preadmit REECE WILSON MD [facility] ONC [id number] 01/26/2018 14:13:00 04/19/2018 00:01:00 DIS Outpatient REECE WILSON MD [facility] ONC [id number] 02/20/2018 09:06:00 02/20/2018 10:10:00 DIS Emergency MARYBEL REYNOLDS MD [facility] ER FALL,RIGHT FOOT PAIN [id number] 01/14/2018 11:24:00 01/14/2018 11:57:00 DIS Emergency TJ FLOWER APRN [facility] ER WOUND CHECK [id number] 01/11/2018 22:08:00 01/12/2018 00:45:00 DIS Emergency NALDO GLEASON MD [facility] ER TOE INJURY [id number] 10/27/2017 09:30:00 10/27/2017 23:59:59 CLS Outpatient ORTIZ HONEYCUTT DO [facility] ENDO SCREENING/HX COLON CANCER [id number] 2017 12:47:00 10/15/2017 00:01:00 DIS Outpatient REECE WILSON MD [facility] ONC [id number] 09/21/2017 12:05:00 09/21/2017 14:24:00 DIS Emergency TJ FLOWER APRN [facility] ER FALL/LEFT SIDE PAIN [id number] 01/16/2017 10:19:00 04/16/2017 00:01:00 DIS Outpatient REECE WILSON MD [facility] ONC [id number] 10/28/2016 10:06:00 01/03/2017 00:01:00 DIS Outpatient REECE WILSON MD [facility] ONC [id number] 12/22/2016 12:47:00 12/22/2016 13:42:00 DIS Emergency TJ FLOWER DEVELOPMENTAL EDUCATION INSTRUCTOR [facility] ER FALL/LEFT ARM LAC [id number] 04/29/2016 08:45:00 07/16/2016 00:01:00 DIS Outpatient REECE WILSON MD [facility] ONC [id number] 02/21/2016 00:08:00 02/21/2016 23:59:59 CLS Preadmit JOSE ALEJANDRO DONALDSON MD [facility] LAB HTN,HYPERLIPIDEMIA [id number] 02/21/2016 18:00:00 02/21/2016 18:51:00 DIS Emergency TJ FLOWER APRN [facility] ER TOE INJ [id number] 12/26/2015 08:39:00 02/20/2016 00:01:00 DIS Outpatient JOSE ALEJANDRO DONALDSON MD [facility] LAB HTN,HYPERLIPIDEMIA [id number] 11/07/2015 13:12:00 01/27/2016 00:01:00 DIS Outpatient REECE WILSON MD [facility] ONC [id number] 05/28/2015 12:39:00 08/12/2015 00:01:00 DIS Outpatient REECE WILSON MD [facility] ONC [id number] 04/06/2015 11:00:00 04/06/2015 23:59:59 CLS Preadmit OTHER, UNLISTED [facility] CR STENT [id number] 02/26/2015 12:01:00 04/05/2015 00:01:00 DIS Outpatient OTHER, UNLISTED [facility] CR STENT [id number] 01/03/2015 11:43:00 01/03/2015 00:01:00 DIS Outpatient OTHER, UNLISTED [facility] CR STENT [id number] 11/14/2014 12:39:00 01/03/2015 00:01:00 DIS Outpatient REECE WILSON MD [facility] ONC LAB [id number] 09/08/2014 19:35:00 09/20/2014 15:15:00 DIS Inpatient QUYEN RAMIREZ MD [facility] SURGICAL GI BLEED [id number] 09/01/2014 13:25:00 09/03/2014 11:05:00 DIS Inpatient QUYEN RAMIREZ MD [facility] SURGICAL LOWER GI BLEED [id number] 04/18/2014 13:14:00 07/16/2014 00:01:00 DIS Outpatient REECE WILSON MD [facility] ONC LAB [id number] 01/09/2014 12:17:00 01/09/2014 23:59:59 CLS Outpatient SVITLANA SIMMONS MD [facility] RAD REDNESS, NODULES LEFT UPPER INNER THIGH [id number] 10/11/2013 13:19:00 01/01/2014 00:01:00 DIS Outpatient REECE WILSON MD [facility] ONC LAB [id number] 11/25/2013 22:50:00 11/29/2013 17:00:00 DIS Inpatient QUYEN RAMIREZ MD [facility] SURGICAL LOWER GI BLEED [id number] 09/24/2013 07:45:00 09/24/2013 09:53:00 DIS Emergency SVITLANA SIMMONS MD [facility] ER CONFUSION, DIFFICULTY WALKING [id number] 03/22/2013 09:16:00 06/14/2013 00:01:00 DIS Outpatient REECE WILSON MD [facility] ONC LAB [id number] 09/20/2012 09:16:00 12/14/2012 00:01:00 DIS Outpatient REECE WILSON MD [facility] ONC LAB [id number] 10/23/2012 09:06:00 10/23/2012 23:59:59 CLS Outpatient [id number] 09/01/2012 07:54:00 09/01/2012 23:59:59 CLS Outpatient PETER HARDY MD [facility] SDC HX POLYPS [id number] 08/25/2012 07:18:00 08/25/2012 23:59:59 CLS Outpatient PETER HARDY MD [facility] PREOP HX POLYPS [id number] 07/09/2018 11:02:00 ACT Emergency NALDO GLEASON MD [facility] ER DENTAL PAIN/BLEEDING [id number] 04/27/2015 18:16:00 Document Registration [id number] 01/19/2012 08:51:00 Document Registration [id number] 09/25/2011 05:51:00 Document Registration [id number] 09/22/2011 07:43:00 Document Registration [id number] 09/16/2011 10:49:00 Document Registration [id number] 01/14/2011 08:50:00 Document Registration [id number] 07/09/2010 09:11:00 Document Registration [id number] 07/08/2010 06:42:00 Document Registration [id number] 01/15/2015 13:25:27 ACT Document Registration [id number] 12/11/2016 23:49:04 12/11/2016 23:59:59 CLS Outpatient
--- NOTE | 2018-07-09 12:11 | ED EENT ---
History of Present Illness General Chief Complaint: Dental Problems/Pain Stated Complaint: DENTAL PAIN/BLEEDING Nursing Triage Note: PATIENT HERE FOR CONCERNS BLEEDING THAT NEVER STOPPED AFTER A DENTAL EXTRACTION BY DR. ARRIAGA YESTERDAY. Source: patient Exam Limitations: no limitations History of Present Illness Date Seen by Provider: Jul 09, 2018 Time Seen by Provider: 11:20 Allergies and Home Medications Allergies Coded Allergies: NKANo Known Allergies (Verified Allergy, Unknown, 01/22/06) Home Medications Amlodipine Besylate 2.5 Mg Tablet, 2.5 MG PO DAILY, (Reported) Ascorbate Calcium/Bioflavonoid 1 Each Tablet, 1 EACH PO BID, (Reported) Aspirin 81 Mg Tablet.dr, 81 MG PO DAILY, (Reported) Atorvastatin Calcium 20 Mg Tablet, 20 MG PO DAILY, (Reported) Calcium Crb&Cit/D3/Min34/Ana 1 Each Tablet, 1 EACH PO BID, (Reported) Carvedilol 6.25 Mg Tablet, 6.25 MG PO BID, (Reported) Docusate Sodium 100 Mg Tablet, 100 MG PO DAILY PRN for CONSTIPATION-1ST LINE, ( Reported) Hydrocodone/Acetaminophen 1 Each Tablet, 0.5-1 EACH PO Q4-6HR PRN for PAIN- MODERATE Prescribed by: NALDO SIFUENTES on 01/12/18 0020 Lisinopril 20 Mg Tablet, 20 MG PO DAILY, (Reported) Multivit-Min/FA/Lycopen/Lutein 1 Each Tablet, 1 EACH PO DAILY, (Reported) Sulfamethoxazole/Trimethoprim 1 Each Tablet, 1 EACH PO BID Prescribed by: NALDO SIFUENTES on 01/12/18 0024 Warfarin Sodium 7.5 Mg Tablet, 7.5 MG PO SuMoTuWeThFr, (Reported) Warfarin Sodium 5 Mg Tablet, 5 MG PO Sa, (Reported) Patient Home Medication List Home Medication List Reviewed: Yes Review of Systems Review of Systems Constitutional: see HPI; No chills, No fever Mouth: see HPI, bloody discharge All Other Systems Reviewed Negative Unless Noted: Yes Past Vzcnwsi-Tonfyc-Nvppog Hx Past Med/Social Hx: Reviewed Nursing Past Med/Soc Hx Patient Social History Alcohol Use: Occasionally Uses Number of Drinks Today: BB Alcohol Beverage of Choice: [place] Recreational Drug Use: No Smoking Status: Former Smoker Type Used: Cigarettes Former Smoker, Quit: Oct 10, 2014 2nd Hand Smoke Exposure: No Recent Foreign Travel: No Contact w/Someone Who Travel: No Recent Infectious Disease Expo: No Recent Hopitalizations: No Immunizations Up To Date Tetanus Booster (TDap): Unknown Date of Influenza Vaccine: Jan 04, 2011 Seasonal Allergies Seasonal Allergies: No Past Medical History Surgeries: Yes (PROSTATE, HERNIA REPAIR, Colon resection x2) Abdominal, Prostatectomy Respiratory: No (SMOKER/CIGARS) Currently Using CPAP: No Currently Using BIPAP: No Cardiac: Yes Deep Vein Thrombosis, Hypertension Neurological: No Reproductive Disorders: No Sexually Transmitted Disease: No HIV/AIDS: No Gastrointestinal: Yes (Hernia repair, Colon resection) Gastrointestinal Bleed, Diverticulosis Musculoskeletal: No Endocrine: No Cancer: Yes Prostate, Colon Did You Recieve Any Treatments: Yes What Type of Treatment Did You: Radiation, Surgical Intervention Psychosocial: Yes Anxiety Integumentary: No Blood Disorders: Yes (hx of SEPSIS, hx of dvt) Family Medical History Reviewed Nursing Family Hx Cancer of mouth 19 FATHER (PT UNSURE OF TYPE OF CANCER FATHER HAD) Diabetes mellitus 19 MOTHER G8 BROTHER Physical Exam Vital Signs Vital Signs - First Documented 07/09/18 11:15 Temp 97.4 Pulse 98 Resp 18 B/P (MAP) 122/97 (105) Pulse Ox 98 O2 Delivery Room Air Height, Weight, BMI Height: 5'4.00" Weight: 200lbs. 0oz. [id number]; 28.12 BMI Method:Stated General Appearance: WD/WN, no apparent distress Eyes: bilateral eye normal inspection, bilateral eye PERRL, bilateral eye EOMI Mouth/Throat: other (bleeding at site of dental extraction. see images.) Cardiovascular: normal peripheral pulses, regular rate, rhythm, no edema, no gallop, no JVD, no murmur Respiratory: chest non-tender, lungs clear, normal breath sounds, no respiratory distress, no accessory muscle use Neurologic/Psychiatric: alert, normal mood/affect, oriented x 3 Skin: normal color, warm/dry Progress/Results/Core Measures Results/Orders My Orders Medications Given in ED Vital Signs/I&O Blood Pressure Mean: 105 Progress Progress Note : Time: 12:11 Progress Note The bleeding has stopped after having TXA and LET solution applied topically to the area with a 2 x 2 gauze. The patient's INR was 3 yesterday. The coag machine is down at currently at the hospital so I am unable to repeat the patient's INR. I will recommend holding his Coumadin for 2 days. He has an appointment with Dr. ARRIAGA on Thursday morning. He agrees with plan of care, plans for discharge, return precautions were given. Departure Impression Primary Impression: dental bleeding post extraction Disposition: HOME, SELF-CARE Condition: Stable/Unchanged Departure-Patient Inst. Decision time for Depature: 12:43 Referrals: NETO ARRIAGA DDS, HOLLY A MD (PCP/Family) Primary Care Physician Patient Instructions: Dental Pain (DC) Add. Discharge Instructions: Hold your Coumadin for one day and resume as previously prescribed on Thursday. Return back to the emergency room for worsening symptoms, return of bleeding, or any other concerns as needed. Keep your appointment with Dr. ARRIAGA as scheduled on Thursday. Consume a diet of soft room temperature foods chewing on the right side of your mouth. All discharge instructions reviewed with patient and/or family. Voiced understanding. Images Mouth/Nose 1 - Progress 1. Dental extraction. ASHOK VU Jul 09, 2018 12:11
[2018-07-09 13:00] VITALS: BP 122/97
== END 2018-07-09 13:00 | disposition home or self-care (01) ==
LOC: EDUNIT# 11:01 → ER 11:02
DX: K91.840 Postprocedural hemorrhage of a digestive system organ or structure following a digestive system procedure (principal); F41.9 Anxiety disorder, unspecified; I10 Essential (primary) hypertension; Z85.038 Personal history of other malignant neoplasm of large intestine; Z85.46 Personal history of malignant neoplasm of prostate; Z86.19 Personal history of other infectious and parasitic diseases; Z92.21 Personal history of antineoplastic chemotherapy; Z87.19 Personal history of other diseases of the digestive system; Z79.82 Long term (current) use of aspirin; Z70.1 Counseling related to patient's sexual behavior and orientation; Z98.890 Other specified postprocedural states; Z87.891 Personal history of nicotine dependence; Z90.49 Acquired absence of other specified parts of digestive tract; Z90.79 Acquired absence of other genital organ(s); Z86.718 Personal history of other venous thrombosis and embolism
CPT/HCPCS: 99282

== ENCOUNTER 2018-11-04 13:50 | Outpatient (CLI) | payer MEDICARE | END 2018-11-04 14:50 | disposition home or self-care (01) | LOC: RAD 13:50 | PROVIDERS: ATTEND Nurse Practitioner Family | DX: G47.33 Obstructive sleep apnea (adult) (pediatric) (principal); G47.10 Hypersomnia, unspecified; G47.00 Insomnia, unspecified; G47.69 Other sleep related movement disorders ==

== ENCOUNTER 2018-11-20 20:40 | Outpatient (CLI) | payer MEDICARE | END 2018-11-21 06:00 | disposition home or self-care (01) | LOC: SLEEP 20:40 | PROVIDERS: ATTEND Otolaryngology Otolaryngology/Facial Plastic Surgery | DX: G47.33 Obstructive sleep apnea (adult) (pediatric) (principal) | CPT/HCPCS: 95811 ==

== ENCOUNTER 2018-12-27 08:16 | Emergency (ER) | payer MEDICARE ==
[~2018-12-27] VITALS: Ht 162 cm; Wt 96.3 kg
--- NOTE | 2018-12-27 09:02 | ED Upper Extremity ---
General Chief Complaint: Trauma-Non Activation Stated Complaint: FALL Nursing Triage Note: AMB TO ROOM REPORTS FELL YESTERDAY BRUSING UNDER R EYE AND R SIDE OF FACE.BRUSING ON R ARM WITH SKIN TEAR. . Nursing Sepsis Screen: No Definite Risk Source: patient Exam Limitations: no limitations (NALDO LARA MED STUDENT) History of Present Illness Date Seen by Provider: Dec 27, 2018 Time Seen by Provider: 08:50 Initial Comments The patient is wd/wn 88 y/o male who is here with a chief complaint of right arm pain. He reports that he fell yesterday while getting up and hit his arm and his head. The fall was not witnessed and he does not believe that he lost conciousness. He denies nausea, vomiting, diarrhea, vision changes, confusion, or headache. He states that he can still move his arm with minimal pain and he has no loss of sensation. Pain/Injury Location: right arm Method of Injury: fell (NALDO LARA MED STUDENT) Onset: yesterday Pain/Injury Location: right arm Method of Injury: fell Modifying Factors: Improves With Immobilization, Improves With Rest (MARYBEL REYNOLDS MD) Allergies and Home Medications Allergies Coded Allergies: NKANo Known Allergies (Verified Allergy, Unknown, 01/22/06) Home Medications Amlodipine Besylate 2.5 Mg Tablet, 2.5 MG PO DAILY, (Reported) Ascorbate Calcium/Bioflavonoid 1 Each Tablet, 1 EACH PO BID, (Reported) Aspirin 81 Mg Tablet.dr, 81 MG PO DAILY, (Reported) Atorvastatin Calcium 20 Mg Tablet, 20 MG PO DAILY, (Reported) Calcium Crb&Cit/D3/Min34/Ana 1 Each Tablet, 1 EACH PO BID, (Reported) Carvedilol 6.25 Mg Tablet, 6.25 MG PO BID, (Reported) Docusate Sodium 100 Mg Tablet, 100 MG PO DAILY PRN for CONSTIPATION-1ST LINE, (Reported) Hydrocodone/Acetaminophen 1 Each Tablet, 0.5-1 EACH PO Q4-6HR PRN for PAIN- MODERATE Prescribed by: NALDO SIFUENTES on 01/12/18 0020 Lisinopril 20 Mg Tablet, 20 MG PO DAILY, (Reported) Multivit-Min/FA/Lycopen/Lutein 1 Each Tablet, 1 EACH PO DAILY, (Reported) Warfarin Sodium 7.5 Mg Tablet, 7.5 MG PO SuMoTuWeThFr, (Reported) Warfarin Sodium 5 Mg Tablet, 5 MG PO Sa, (Reported) Patient Home Medication List Home Medication List Reviewed: Yes (MARYBEL REYNOLDS MD) Review of Systems Constitutional: No dizziness, No fever EENTM: No blurred vision, No double vision Respiratory: No cough, No short of breath Cardiovascular: No chest pain, No palpitations (NALDO LARA) Constitutional: see HPI EENTM: no symptoms reported Respiratory: no symptoms reported Cardiovascular: no symptoms reported Musculoskeletal: see HPI, joint pain, joint swelling, muscle pain Skin: change in color, lesions Psychiatric/Neurological: Denies Headache, Denies Numbness, Denies Weakness (MARYBEL REYNOLDS MD) Past Yrokfbv-Zoecah-Jtjhcd Hx Past Med/Social Hx: Reviewed Nursing Past Med/Soc Hx (MARYBEL REYNOLDS MD) Patient Social History Alcohol Use: Occasionally Uses Number of Drinks Today: BB Alcohol Beverage of Choice: [place] Recreational Drug Use: No Smoking Status: Never a Smoker Type Used: Cigarettes Former Smoker, Quit: Oct 10, 2014 2nd Hand Smoke Exposure: No Recent Foreign Travel: No Contact w/Someone Who Travel: No Recent Infectious Disease Expo: No Recent Hopitalizations: No (NALDO LARA) Immunizations Up To Date Tetanus Booster (TDap): Unknown Date of Influenza Vaccine: Jan 04, 2011 (NALDO LARA) Seasonal Allergies Seasonal Allergies: No (NALDO LARA) Past Medical History Surgeries: Yes (PROSTATE, HERNIA REPAIR, Colon resection x2) Abdominal, Prostatectomy Respiratory: No (SMOKER/CIGARS) Currently Using CPAP: No Currently Using BIPAP: No Cardiac: Yes Deep Vein Thrombosis, Hypertension Neurological: No Reproductive Disorders: No Sexually Transmitted Disease: No HIV/AIDS: No Gastrointestinal: Yes (Hernia repair, Colon resection) Gastrointestinal Bleed, Diverticulosis Musculoskeletal: No Endocrine: No Cancer: Yes Prostate, Colon Did You Recieve Any Treatments: Yes What Type of Treatment Did You: Radiation, Surgical Intervention Psychosocial: Yes Anxiety Integumentary: No Blood Disorders: Yes (hx of SEPSIS, hx of dvt) (NALDO LARA) Family Medical History Reviewed Nursing Family Hx (MARYBEL REYNOLDS MD) Cancer of mouth 19 FATHER (PT UNSURE OF TYPE OF CANCER FATHER HAD) Diabetes mellitus 19 MOTHER G8 BROTHER Physical Exam Vital Signs Vital Signs - First Documented 12/27/18 08:19 Temp 36.7 Pulse 91 Resp 18 B/P (MAP) 138/75 (96) Pulse Ox 97 O2 Delivery Room Air (MARYBEL REYNOLDS MD) Vital Signs Capillary Refill : Less Than 3 Seconds (NALDO LARA MED STUDENT) Height, Weight, BMI Height: 5'4.00" Weight: 200lbs. 0oz. 90.936627vu; 36.00 BMI Method:Stated General Appearance: WD/WN, no apparent distress HEENT: PERRL/EOMI, TMs normal; No photophobia Cardiovascular: regular rate, rhythm, no murmur Respiratory: lungs clear, normal breath sounds Elbow/Forearm: Right, abrasions, asymmetry, ecchymosis, pain Wrist: Yes normal inspection, Yes no evidence of injury Hand: normal inspection, no evidence of injury Neurologic/Tendon: normal sensation, normal motor functions Neurologic/Psychiatric: alert, normal mood/affect, oriented x 3 Skin: normal color, warm/dry (NALDO LARA MED STUDENT) General Appearance: no apparent distress Neck: non-tender, full range of motion, supple Cardiovascular: regular rate, rhythm, no murmur Respiratory: lungs clear, normal breath sounds Elbow/Forearm: normal ROM, Right, ecchymosis, pain, soft tissue tenderness, swelling Wrist: Yes normal inspection, Yes no evidence of injury Hand: normal inspection, no evidence of injury, Right Neurologic/Tendon: normal sensation, normal motor functions Neurologic/Psychiatric: alert, oriented x 3 Skin: warm/dry, ecchymosis (large ecchymosis noted to the right forearm from the elbow to the mid forearm. Ecchymosis noted of her right cheek and right brow without skin tear.), other (moderate-sized skin tear to the right forearm lateral aspect) (MARYBEL REYNOLDS MD) Progress/Results/Core Measures Results/Orders My Orders Orders - MARYBEL REYNOLDS MD Ct Head/Cervical Spine Wo (12/27/18 08:50) Forearm, Right, 2 Views (12/27/18 08:50) Elbow, Right, 3 Views (12/27/18 08:50) (MARYBEL REYNOLDS MD) Vital Signs/I&O 12/27/18 08:19 Temp 36.7 Pulse 91 Resp 18 B/P (MAP) 138/75 (96) Pulse Ox 97 O2 Delivery Room Air (MARYBEL REYNOLDS MD) Blood Pressure Mean: 96 Progress Progress Note : Time: 09:00 Progress Note The patient is resting comfortably in the exam room. He states that his pain is under control and does not need medication at this time. He will be evaluated for possible fracture of right forearm with plain radiograph. CT of head and cervical spine to rule out any cranial hemorrhage or cervical fractures. (NALDO LARA MED STUDENT) Progress Note : Progress Note I have seen and evaluated the patient and agree with above except as indicated. Have directed the plan of care. Patient is here for fall yesterday that seems to be mechanical. He is unsure of loss of consciousness. Does report hitting his head and has obvious bruising to the face. Also has significant bruising with skin tear to the right forearm/elbow area. Retains range of motion. Patient is on warfarin. INR this morning was 3.0 with PTT of 31.1 per mag lab. We will check CT of the head and neck as well as x-ray of the right elbow and forearm. Skin tear wound cleaned and dressed by nursing. Monitor patient. (MARYBEL REYNOLDS MD) Diagnostic Imaging Diagonstic Imaging: Xray Plain Films/CT/US/NM/MRI: forearm Comments [facility] [place], [place] NAME: KYLEDOMITILA Gould [facility] REC#: [id number] PT STATUS: REG ER : 1930 PHYSICIAN: MARYBEL REYNOLDS MD ADMIT DATE: 12/27/18/ER Draft Date of Exam:12/27/18 FOREARM, RIGHT, 2 VIEWS INDICATION: Right forearm pain. AP and lateral views of the right forearm are obtained. FINDINGS: No fracture or acute bony abnormality is seen. There is no destructive bony lesion. IMPRESSION: Negative right forearm. Dictated on workstation # [id number] Dict: 12/27/18924 Trans: 12/27/18928 [id number] Interpreted by: QUYEN GOETZ MD Electronically signed by: Reviewed: Reviewed by Tx Diagonstic Imaging: Xray Plain Films/CT/US/NM/MRI: elbow Comments [facility], [place] NAME: DOMITILA WRIGHT [facility] REC#: [id number] PT STATUS: REG ER : 1930 PHYSICIAN: MARYBEL REYNOLDS MD ADMIT DATE: 12/27/18/ER Draft Date of Exam:12/27/18 ELBOW, RIGHT, 3 VIEWS INDICATION: Fall with bruising and pain to the right elbow. TIME OF EXAM: 9:19 AM Three views of the right elbow were obtained. FINDINGS: Alignment is normal. Joint spaces are well maintained. No fracture, dislocation or effusion is seen. IMPRESSION: No acute abnormality is detected. Dictated on workstation # [id number] Dict: 12/27/18940 Trans: 12/27/1844 [id number] Interpreted by: LELA WATKINS MD Electronically signed by: Reviewed: Reviewed by Tx Diagonstic Imaging: CT Plain Films/CT/US/NM/MRI: c-spine, head Comments [facility] [place] [place] NAME: DOMITILA WRIGHT [facility] REC#: [id number] PT STATUS: REG ER : 1930 PHYSICIAN: MARYBEL REYNOLDS MD ADMIT DATE: 12/27/18/ER Draft Date of Exam:12/27/18 CT HEAD/CERVICAL SPINE WO PROCEDURE: CT head and CT cervical spine without contrast. TECHNIQUE: Multiple contiguous axial images were obtained through the brain and cervical spine without the use of intravenous contrast. Sagittal and coronal reformations through the cervical spine were then performed. Auto Exposure Controls were utilized during the CT exam to meet ALARA standards for radiation dose reduction. INDICATION: Fall with bruising to the left cheek and eye. Correlation is made with prior head CT from 09/01/2014. CT head: FINDINGS: The ventricles and sulci remain prominent, consistent with the patient's age. No sulcal effacement or midline shift is detected. No acute intra-axial or extra-axial hemorrhage is detected. Cisterns are patent. The visualized paranasal sinuses are clear. IMPRESSION: Age-related atrophy. No acute intracranial process is detected. CT cervical spine: FINDINGS: Curvature of the cervical spine is normal. Minimal anterolisthesis of C4 on C5 is noted. No fracture or subluxation is identified. Prevertebral tissues are within normal limits. Odontoid is intact. There are multilevel facet arthropathy seen. There is sclerosis involving the right-sided C6 facet, nonspecific. IMPRESSION: Cervical spondylosis. No acute fracture is detected. Dictated on workstation # [id number] Dict: 12/27/18 09 Trans: 12/27/18 0925 KB [id number] Interpreted by: LELA WATKINS MD Electronically signed by: (MARYBEL REYNOLDS MD) Departure Impression Primary Impression: Minor head injury Qualified Codes: S09.90XA - Unspecified injury of head, initial encounter Additional Impressions: Facial contusion Qualified Codes: S00.83XA - Contusion of other part of head, initial encounter Contusion of right arm Qualified Codes: S40.021A - Contusion of right upper arm, initial encounter Skin tear of right upper extremity Disposition: 01 HOME, SELF-CARE Condition: Improved Departure-Patient Inst. Decision time for Depature: 09:54 (MARYBEL REYNOLDS MD) Referrals: JOSE ALEJANDRO DONALDSON MD (PCP/Family) Primary Care Physician Patient Instructions: Skin Abrasions, Contusion (DC), Minor Head Injury Add. Discharge Instructions: All discharge instructions reviewed with patient and/or family. Voiced understanding. Keep dressing in place over the skin tear on the right forearm for the next several days. You may use ice packs 20 minutes per hour over area is concerned as needed to reduce swelling and pain. Return for worse pain especially pain of the forearm or pain of the right arm with movement of the arm, elbow or hand. Return for worse pain otherwise, vision or balance problems, vomiting, weakness, breathing problems or other concerns as needed. Continue home medications as previously prescribed. Your INR (warfarin level) was 3.0 this morning. Copy Copies To 1: JOSE ALEJANDRO DONALDSON MD, JOSHUA K MED STUDENT Dec 27, 2018 09:02 MARYBEL REYNOLDS MD Dec 27, 2018 09:50
--- NOTE | 2018-12-27 09:26 | Diagnostic Imaging Report ---
PROCEDURE: CT head and CT cervical spine without contrast. TECHNIQUE: Multiple contiguous axial images were obtained through the brain and cervical spine without the use of intravenous contrast. Sagittal and coronal reformations through the cervical spine were then performed. Auto Exposure Controls were utilized during the CT exam to meet ALARA standards for radiation dose reduction. INDICATION: Fall with bruising to the left cheek and eye. Correlation is made with prior head CT from 09/01/2014. CT head: FINDINGS: The ventricles and sulci remain prominent, consistent with the patient's age. No sulcal effacement or midline shift is detected. No acute intra-axial or extra-axial hemorrhage is detected. Cisterns are patent. The visualized paranasal sinuses are clear. IMPRESSION: Age-related atrophy. No acute intracranial process is detected. CT cervical spine: FINDINGS: Curvature of the cervical spine is normal. Minimal anterolisthesis of C4 on C5 is noted. No fracture or subluxation is identified. Prevertebral tissues are within normal limits. Odontoid is intact. There are multilevel facet arthropathy seen. There is sclerosis involving the right-sided C6 facet, nonspecific. IMPRESSION: Cervical spondylosis. No acute fracture is detected. Dictated by: Dictated on workstation # [id number]
--- NOTE | 2018-12-27 09:29 | Diagnostic Imaging Report ---
INDICATION: Right forearm pain. AP and lateral views of the right forearm are obtained. FINDINGS: No fracture or acute bony abnormality is seen. There is no destructive bony lesion. IMPRESSION: Negative right forearm. Dictated by: Dictated on workstation # [id number]
--- NOTE | 2018-12-27 09:44 | Diagnostic Imaging Report ---
INDICATION: Fall with bruising and pain to the right elbow. TIME OF EXAM: 9:19 AM Three views of the right elbow were obtained. FINDINGS: Alignment is normal. Joint spaces are well maintained. No fracture, dislocation or effusion is seen. IMPRESSION: No acute abnormality is detected. Dictated by: Dictated on workstation # [id number]
[2018-12-27 10:13] VITALS: BP 138/75
== END 2018-12-27 10:13 | disposition home or self-care (01) ==
LOC: EDUNIT# 08:16 → ER 08:17
DX: S09.90XA Unspecified injury of head, initial encounter (principal); S51.811A Laceration without foreign body of right forearm, initial encounter; S00.83XA Contusion of other part of head, initial encounter; S40.021A Contusion of right upper arm, initial encounter; I10 Essential (primary) hypertension; F41.9 Anxiety disorder, unspecified; Z85.46 Personal history of malignant neoplasm of prostate; Z85.038 Personal history of other malignant neoplasm of large intestine; Z86.718 Personal history of other venous thrombosis and embolism; Z79.82 Long term (current) use of aspirin; Z79.01 Long term (current) use of anticoagulants; Z87.891 Personal history of nicotine dependence; Z90.79 Acquired absence of other genital organ(s); Z90.49 Acquired absence of other specified parts of digestive tract; Z80.8 Family history of malignant neoplasm of other organs or systems; W18.39XA Other fall on same level, initial encounter
CPT/HCPCS: 70450; 72125; 73080; 73090

== ENCOUNTER 2018-12-27 18:22 | Emergency (ER) | payer MEDICARE ==
[~2018-12-27] VITALS: Ht 162 cm; Wt 96.3 kg
--- NOTE | 2018-12-27 18:34 | ED Suture Removal/Wound Check ---
Suture/Wound Re-check Suture Removal/Wound Recheck : Suture Removal/Wound Recheck: Dry/sterile dressing-appl General Appearance: WD/WN, no apparent distress Neuro/Tendon: normal sensation Skin Exam: normal color, warm/dry, other (patient here for redressing of skin tear on right dorsal surface of the forearm. He was putting on his shirt when he removed the previous dressing by accident. Dressing was changed. OpSite was put over skin tear.) Physical Exam Vital Signs Capillary Refill : General Appearance: WD/WN, no apparent distress Cardiovascular: normal peripheral pulses, regular rate, rhythm, no edema, no gallop, no JVD, no murmur Respiratory: chest non-tender, lungs clear, normal breath sounds, no respiratory distress, no accessory muscle use Neurologic/Psychiatric: alert, normal mood/affect, oriented x 3 Skin: normal color, warm/dry Skin Problem Location: upper extremities Skin Problem Character: other (the skin tear to the dorsal wrist the right forearm.) Departure Impression Primary Impression: Visit for wound check Disposition: 01 HOME, SELF-CARE Condition: Stable/Unchanged Departure-Patient Inst. Decision time for Depature: 18:33 Referrals: JOSE ALEJANDRO GALLARDO MD (PCP/Family) Primary Care Physician Patient Instructions: Wound Care (DC) Add. Discharge Instructions: Watch for signs of infection such as increased redness, swelling, drainage, pain. Follow-up with Dr. Gallardo's office within 1 week for recheck. You may use Tylenol as directed by the bottle for pain relief. Return back to the emergency room for worsening symptoms or concerns as needed. All discharge instructions reviewed with patient and/or family. Voiced understanding. ASHOK VU Dec 27, 2018 18:34
[2018-12-27 18:37] VITALS: BP 151/81
== END 2018-12-27 18:32 | disposition home or self-care (01) ==
LOC: EDUNIT# 18:22 → ER 18:23
DX: S51.811D Laceration without foreign body of right forearm, subsequent encounter (principal); W19.XXXD Unspecified fall, subsequent encounter

== ENCOUNTER 2018-12-29 13:19 | Emergency (ER) | payer MEDICARE ==
[~2018-12-29] VITALS: Ht 162 cm; Wt 96.3 kg
--- NOTE | 2018-12-29 14:26 | ED General ---
General Chief Complaint: Skin/Wound Problems Stated Complaint: R ARM WOUND BLEEDING Nursing Triage Note: PT FELL ON THURSDAY AND WAS SEEN HERE IN THE ER. CC TODAY OF HEMOTOMA ON RT ARM FROM THE fall, OP SITE IN PLACE, BLEEDING IS CONTROLED BY OP SITE. Nursing Sepsis Screen: No Definite Risk Source of Information: Patient, Spouse Exam Limitations: No Limitations (NALDO LARA MED STUDENT) History of Present Illness Date Seen by Provider: Dec 29, 2018 Time Seen by Provider: 14:00 Initial Comments The patient is a wd/wn 88 y/o male who is here with a chief complaint of arm pain and swelling. He was seen here 2 days ago for the same problem. The patient states that since then the swelling has increased and the wound on his forearm has now become painful at 3/10. He also reports that it feels "hot and tight". He denies fever, chills, nausea, vomiting, diarrhea, or shortness of breath. Timing/Duration: 3-4 Days Severity: Mild Modifying Factors: worse with Movement Associated Systoms: No Chest Pain, No Fever/Chills (NALDO LARA MED STUDENT) Timing/Duration: 3-4 Days Severity: Mild Modifying Factors: worse with Movement; improves with Rest Associated Systoms: No Chest Pain; Fever/Chills; No Nausea/Vomiting, No Shor tness of Air, No Weakness (MARYBEL REYNOLDS MD) Allergies and Home Medications Allergies Coded Allergies: NKANo Known Allergies (Verified Allergy, Unknown, 01/22/06) Home Medications Amlodipine Besylate 2.5 Mg Tablet, 2.5 MG PO DAILY, (Reported) Ascorbate Calcium/Bioflavonoid 1 Each Tablet, 1 EACH PO BID, (Reported) Aspirin 81 Mg Tablet.dr, 81 MG PO DAILY, (Reported) Atorvastatin Calcium 20 Mg Tablet, 20 MG PO DAILY, (Reported) Calcium Crb&Cit/D3/Min34/Ana 1 Each Tablet, 1 EACH PO BID, (Reported) Carvedilol 6.25 Mg Tablet, 6.25 MG PO BID, (Reported) Docusate Sodium 100 Mg Tablet, 100 MG PO DAILY PRN for CONSTIPATION-1ST LINE, (Reported) Hydrocodone/Acetaminophen 1 Each Tablet, 0.5-1 EACH PO Q4-6HR PRN for PAIN- MODERATE Prescribed by: NALDO SIFUENTES on 01/12/18 0020 Lisinopril 20 Mg Tablet, 20 MG PO DAILY, (Reported) Multivit-Min/FA/Lycopen/Lutein 1 Each Tablet, 1 EACH PO DAILY, (Reported) Warfarin Sodium 7.5 Mg Tablet, 7.5 MG PO SuMoTuWeThFr, (Reported) Warfarin Sodium 5 Mg Tablet, 5 MG PO Sa, (Reported) Patient Home Medication List Home Medication List Reviewed: Yes (MARYBEL REYNOLDS MD) Review of Systems Review of Systems Constitutional: No chills, No fever EENTM: No blurred vision, No double vision Respiratory: No cough, No short of breath Cardiovascular: No chest pain, No palpitations Gastrointestinal: No abdominal pain, No diarrhea, No nausea, No vomiting Musculoskeletal: No back pain; muscle pain Skin: change in color, lumps (NALDO LARA STUDENT) Constitutional: see HPI EENTM: no symptoms reported Respiratory: no symptoms reported Cardiovascular: No chest pain, No palpitations; other (hx DVT and on watfarin) Gastrointestinal: no symptoms reported Genitourinary: no symptoms reported Musculoskeletal: see HPI, muscle pain; No muscle weakness Skin: change in color, lesions, lumps Psychiatric/Neurological: Denies Numbness, Denies Paresthesia, Denies Weakness Hematologic/Lymphatic: No Symptoms Reported (MARYBEL REYNOLDS MD) All Other Systems Reviewed Negative Unless Noted: Yes (MARYBEL REYNOLDS MD) Past Mynduwy-Rhfnsq-Ayafvx Hx Past Med/Social Hx: Reviewed Nursing Past Med/Soc Hx (MARYBEL REYNOLDS MD) Patient Social History Alcohol Use: Occasionally Uses Number of Drinks Today: BB Alcohol Beverage of Choice: [place] Recreational Drug Use: No Smoking Status: Former Smoker Type Used: Cigarettes Former Smoker, Quit: Oct 10, 2014 2nd Hand Smoke Exposure: No Recent Foreign Travel: No Contact w/Someone Who Travel: No Recent Infectious Disease Expo: No Recent Hopitalizations: No Physical Abuse: No Sexual Abuse: No Mistreated: No Fear: No (NALDO LARA STUDENT) Immunizations Up To Date Tetanus Booster (TDap): Unknown Date of Influenza Vaccine: Jan 04, 2011 (NALDO LARA STUDENT) Seasonal Allergies Seasonal Allergies: No (ETCHESON,NALDO K MED STUDENT) Past Medical History Surgeries: Yes (PROSTATE, HERNIA REPAIR, Colon resection x2) Abdominal, Prostatectomy Respiratory: No (SMOKER/CIGARS) Currently Using CPAP: No Currently Using BIPAP: No Cardiac: Yes Deep Vein Thrombosis, Hypertension Neurological: No Reproductive Disorders: No Sexually Transmitted Disease: No HIV/AIDS: No Gastrointestinal: Yes (Hernia repair, Colon resection) Gastrointestinal Bleed, Diverticulosis Musculoskeletal: No Endocrine: No Cancer: Yes Prostate, Colon Did You Recieve Any Treatments: Yes What Type of Treatment Did You: Radiation, Surgical Intervention Psychosocial: Yes Anxiety Integumentary: No Blood Disorders: Yes (hx of SEPSIS, hx of dvt) (NALDO LARA MED STUDENT) Family Medical History Reviewed Nursing Family Hx (MARYBEL REYNOLDS MD) Cancer of mouth 19 FATHER (PT UNSURE OF TYPE OF CANCER FATHER HAD) Diabetes mellitus 19 MOTHER G8 BROTHER Physical Exam-Suspected Sepsis Physical Exam Vital Signs Vital Signs - First Documented 12/29/18 13:26 Temp 37.8 Pulse 75 Resp 20 B/P (MAP) 152/82 (105) Pulse Ox 96 O2 Delivery Room Air (MARYBEL REYNOLDS MD) Vital Signs Capillary Refill : Less Than 3 Seconds (NALDO LARA MED STUDENT) Blood Pressure Mean: 105 Height, Weight, BMI Height: 5'4.00" Weight: 200lbs. 0oz. 90.545093rx; 36.00 BMI Method:Stated General Appearance: No Apparent Distress, WD/WN HEENT: Pharynx Normal, Moist Mucous Membranes Respiratory: Chest Non Tender, Lungs Clear, Normal Breath Sounds Cardiovascular: Regular Rate, Rhythm, No Edema, No Murmur Gastrointestinal: Normal Bowel Sounds, Non Tender, Soft Back: Normal Inspection, No CVA Tenderness, No Vertebral Tenderness Extremity: Normal Range of Motion, Swelling Neurologic/Psychiatric: Alert, Oriented x3, No Motor/Sensory Deficits, Normal Mood/Affect Skin: normal color (NALDO LARA STUDENT) Focused Exam Lactate Level 12/29/18 14:25: Lactic Acid Level 0.70 (MARYBEL REYNOLDS MD) Lactic Acid Level Laboratory Tests Test 12/29/18 14:25 Lactic Acid Level 0.70 MMOL/L (0.50-2.00) (MARYBEL REYNOLDS MD) Progress/Results/Core Measures Suspected Sepsis Recent Fever Within 48 Hours: No Infection Criteria Present: None New/Unexplained Altered Menta: No Sepsis Screen: No Definite Risk SIRS Temperature: Pulse: 75 Respiratory Rate: 20 Blood Pressure 152 /82 Mean: 105 (NALDO LARA MED STUDENT) Results/Orders Lab Results Laboratory Tests Test 12/29/18 14:25 Range/Units White Blood Count 5.9 4.3-11.0 10^3/uL Red Blood Count 3.76 L 4.35-5.85 10^6/uL Hemoglobin 11.8 L 13.3-17.7 G/DL Hematocrit 35 L 40-54 % Mean Corpuscular Volume 94 80-99 FL Mean Corpuscular Hemoglobin 31 25-34 PG Mean Corpuscular Hemoglobin Concent 33 32-36 G/DL Red Cell Distribution Width 14.9 H 10.0-14.5 % Platelet Count 208 130-400 10^3/uL Mean Platelet Volume 9.6 7.4-10.4 FL Neutrophils (%) (Auto) 76 H 42-75 % Lymphocytes (%) (Auto) 14 12-44 % Monocytes (%) (Auto) 8 0-12 % Eosinophils (%) (Auto) 2 0-10 % Basophils (%) (Auto) 0 0-10 % Neutrophils # (Auto) 4.5 1.8-7.8 X 10^3 Lymphocytes # (Auto) 0.8 L 1.0-4.0 X 10^3 Monocytes # (Auto) 0.5 0.0-1.0 X 10^3 Eosinophils # (Auto) 0.1 0.0-0.3 10^3/uL Basophils # (Auto) 0.0 0.0-0.1 10^3/uL Prothrombin Time 33.9 H 12.2-14.7 SEC INR Comment 3.2 H 0.8-1.4 Activated Partial Thromboplast Time 44 H 24-35 SEC Urine Color YELLOW Urine Clarity CLEAR Urine pH 6 5-9 Urine Specific [place] 1.015 L 1.016-1.022 Urine Protein NEGATIVE NEGATIVE Urine Glucose (UA) NEGATIVE NEGATIVE Urine Ketones 2+ H NEGATIVE Urine Nitrite NEGATIVE NEGATIVE Urine Bilirubin NEGATIVE NEGATIVE Urine Urobilinogen NORMAL NORMAL MG/DL Urine Leukocyte Esterase NEGATIVE NEGATIVE Urine RBC (Auto) 1+ H NEGATIVE Urine RBC RARE /HPF Urine WBC RARE /HPF Urine Squamous Epithelial Cells RARE /HPF Urine Crystals NONE /LPF Urine Bacteria NEGATIVE /HPF Urine Casts NONE /LPF Urine Mucus NEGATIVE /LPF Urine Culture Indicated NO Sodium Level 141 135-145 MMOL/L Potassium Level 3.8 3.6-5.0 MMOL/L Chloride Level 107 98-107 MMOL/L Carbon Dioxide Level 25 21-32 MMOL/L Anion Gap 9 5-14 MMOL/L Blood Urea Nitrogen 21 H 7-18 MG/DL Creatinine 0.97 0.60-1.30 MG/DL Estimat Glomerular Filtration Rate > 60 BUN/Creatinine Ratio 22 Glucose Level 109 H 70-105 MG/DL Lactic Acid Level 0.70 0.50-2.00 MMOL/L Calcium Level 10.0 8.5-10.1 MG/DL Corrected Calcium 10.0 8.5-10.1 MG/DL Total Bilirubin 0.7 0.1-1.0 MG/DL Aspartate Amino Transf (AST/SGOT) 17 5-34 U/L Alanine Aminotransferase (ALT/SGPT) 21 0-55 U/L Alkaline Phosphatase 48 40-136 U/L C-Reactive Protein High Sensitivity 0.60 H 0.00-0.50 MG/DL Total Protein 6.6 6.4-8.2 GM/DL Albumin 4.0 3.2-4.5 GM/DL (MARYBEL REYNOLDS MD) My Orders Orders - MARYBEL REYNOLDS MD Cbc With Automated Diff (12/29/18 13:49) Comprehensive Metabolic Panel (12/29/18 13:49) Blood Culture (12/29/18 13:49) Sputum Culture (12/29/18 13:49) Urinalysis (12/29/18 13:49) Urine Culture (12/29/18 13:49) Protime With Inr (12/29/18 13:49) Partial Thromboplastin Time (12/29/18 13:49) Chest 1 View, Ap/Pa Only (12/29/18 13:49) Ed Iv/Invasive Line Start (12/29/18 13:49) Vital Signs Adult Sepsis Patie Q15M (12/29/18 13:49) O2 (12/29/18 13:49) Remove Rings In Anticipation O (12/29/18 13:49) Lactic Acid Analyzer (12/29/18 13:49) Hs C Reactive Protein (12/29/18 14:25) Cephalexin Capsule (Keflex Capsule) (12/29/18 16:27) (MARYBEL REYNOLDS MD) Vital Signs/I&O 12/29/18 13:26 Temp 37.8 Pulse 75 Resp 20 B/P (MAP) 152/82 (105) Pulse Ox 96 O2 Delivery Room Air (MARYBEL REYNOLDS MD) Vital Signs/I&O Capillary Refill : Less Than 3 Seconds (NALDO LARA MED STUDENT) Blood Pressure Mean: 105 Progress Note : Time: 14:20 Progress Note The patient is resting comfortably in the exam room. He will be evaluated for suspected sepsis with standard protocol. (NALDO LARA STUDENT) Progress Note : Progress Note I have seen and evaluated the patient and agree with above except as indicated. I have directed the plan of care. Patient is here with reports of increasing hematoma to the right forearm. Note some pain now. Retains range of motion. Wou nd is warm and palpable hematoma noted under skin. No foul-smelling drainage but is covered with Tegaderm. Plan is for IV, labs, blood cultures and lactic acid as well as chest x-ray and UA per sepsis protocol given his fever. Concerns about possible cellulitis near wound or involving the hematoma. Monitor patient. 1615: Labs reviewed. No significant findings for infection. Patient overall feeling fine. I have discussed the case with Dr. Harley regarding the hematoma that may need draining and my concerns for possibility for infection. We will initiate patient on cephalexin as the least concerning in combination with warfarin. Current INR is 3.2. Dr. Harley will see the patient in office on Thursday at 11:30 AM. I have also discussed the case with Dr. Ptael and she will continue to follow. We discussed Bactrim versus cephalexin but I have concerns with Bactrim related to increase INR. Discharged home with return precautions. Patient family verbalize understanding instructions and agreement with plan. (MARYBEL REYNOLDS MD) Diagnostic Imaging Diagonstic Imaging: Xray Plain Films/CT/US/NM/MRI: chest Comments NAME: DOMITILA WRIGHT MED REC#: [id number] PT STATUS: REG ER : 1930 PHYSICIAN: MARYBEL REYNOLDS MD ADMIT DATE: 12/29/18/ER Draft Date of Exam:12/29/18 CHEST 1 VIEW, AP/PA ONLY INDICATION: Fall with hematoma of the right arm. TIME OF EXAM: 02:43 p.m. COMPARISON: Comparison is made with prior chest from 09/19/2014. FINDINGS: The heart is enlarged. The lungs are clear. The pulmonary vascularity is normal. No infiltrate, effusion, or pneumothorax is detected. IMPRESSION: No acute cardiopulmonary process is detected. Dictated on workstation # [id number] Dict: 12/29/18 1458 Trans: 12/29/18 1502 [id number] Interpreted by: LELA WATKINS MD Electronically signed by: (MARYBEL REYNOLDS MD) Departure Impression Primary Impression: Traumatic hematoma of right forearm Qualified Codes: S50.11XD - Contusion of right forearm, subsequent encounter Additional Impression: Soft tissue infection Disposition: 01 HOME, SELF-CARE Condition: Stable Departure-Patient Inst. Decision time for Depature: 16:31 (MARYBEL REYNOLDS MD) Referrals: JOSE ALEJANDRO GALLARDO MD (PCP/Family) Primary Care Physician Patient Instructions: Cellulitis (Skin Infection), Adult (DC), Contusion (DC) Add. Discharge Instructions: All discharge instructions reviewed with patient and/or family. Voiced understanding. You need to follow-up with Dr. Harley at his office at 11:30 AM on Thursday12/31/18. Please ensure that you make this appointment. Take medications as directed. Follow-up with Dr. Gallardo is well within the next few days for recheck and further evaluation. Return for worse pain, fever, vomiting, weakness, breathing problems or other concerns as needed. Scripts Cephalexin (Cephalexin) 500 Mg Tablet 500 MG PO TID, #20 TAB 0 Refills Prov: MARYBEL REYNOLDS MD 12/29/18 Copy Copies To 1: PETER HARLEY MD Copies To 2: JOSE ALEJANDRO GALLARDO MD, JOSHUA K MED STUDENT Dec 29, 2018 14:26 MARYBEL REYNOLDS MD Dec 29, 2018 14:57
[2018-12-29 14:40] LABS: BASOPHILS % (AUTO) 0 % (0-10); EOSINOPHILS # (AUTO) 0.1 10^3/uL (0.0-0.3); EOSINOPHILS % (AUTO) 2 % (0-10); HEMATOCRIT 35 % (40-54); HEMOGLOBIN 11.8 G/DL (13.3-17.7); LYMPHOCYTES # (AUTO) 0.8 X 10^3 (1.0-4.0); LYMPHOCYTES % (AUTO) 14 % (12-44); MEAN CORPUSCULAR HEMOGLOBIN 31 PG (25-34); MEAN CORPUSCULAR HGB CONC 33 G/DL (32-36); MEAN CORPUSCULAR VOLUME 94 FL (80-99); MEAN PLATELET VOLUME 9.6 FL (7.4-10.4); MONOCYTES # (AUTO) 0.5 X 10^3 (0.0-1.0); MONOCYTES % (AUTO) 8 % (0-12); NEUTROPHILS # (AUTO) 4.5 X 10^3 (1.8-7.8); NEUTROPHILS % (AUTO) 76 % (42-75); PLATELET COUNT 208 10^3/uL (130-400); RED CELL DISTRIBUTION WIDTH 14.9 % (10.0-14.5); WHITE BLOOD COUNT 5.9 10^3/uL (4.3-11.0)
[2018-12-29 14:46] LABS: BILIRUBIN,URINE NEGATIVE (NEGATIVE); CLARITY,URINE CLEAR; COLOR,URINE YELLOW; GLUCOSE, URINE (UA) NEGATIVE (NEGATIVE); KETONES,URINE 2+ (NEGATIVE); LEUKOCYTE ESTERASE ,URINE NEGATIVE (NEGATIVE); NITRITE,URINE NEGATIVE (NEGATIVE); PH,URINE 6 (5-9); PROTEIN,URINE NEGATIVE (NEGATIVE); UROBILINOGEN,URINE NORMAL (NORMAL)
[2018-12-29 14:54] LABS: BACTERIA,URINE NEGATIVE /HPF; RBC,URINE RARE /HPF; SQUAMOUS EPITHELIAL CELL,UR RARE /HPF; WBC,URINE RARE /HPF
[2018-12-29 14:56] LABS: INR 3.2 (0.8-1.4); PROTHROMBIN TIME PATIENT 33.9 SEC (12.2-14.7)
--- NOTE | 2018-12-29 15:03 | Diagnostic Imaging Report ---
INDICATION: Fall with hematoma of the right arm. TIME OF EXAM: 02:43 p.m. COMPARISON: Comparison is made with prior chest from 09/19/2014. FINDINGS: The heart is enlarged. The lungs are clear. The pulmonary vascularity is normal. No infiltrate, effusion, or pneumothorax is detected. IMPRESSION: No acute cardiopulmonary process is detected. Dictated by: Dictated on workstation # [id number]
[2018-12-29 15:07] LABS: ALANINE AMINOTRANSFERASE 21 U/L (0-55); ALKALINE PHOSPHATASE 48 U/L (40-136); BILIRUBIN,TOTAL 0.7 MG/DL (0.1-1.0); BUN/CREATININE RATIO 22; CARBON DIOXIDE 25 MMOL/L (21-32); CHLORIDE 107 MMOL/L (98-107); CREATININE SERUM 0.97 MG/DL (0.60-1.30); GFR ESTIMATED > 60; GLUCOSE 109 MG/DL (70-105); POTASSIUM 3.8 MMOL/L (3.6-5.0); SODIUM 141 MMOL/L (135-145); TOTAL PROTEIN 6.6 GM/DL (6.4-8.2)
[2018-12-29] MEDS ORDERED: CEPHALEXIN 250 MG (KEFLEX) CAP PO STA (16:27)
[2018-12-29] MEDS ORDERED: CEPH500T PO (16:34)
[2018-12-29 16:58] VITALS: BP 156/94
== END 2018-12-29 16:58 | disposition home or self-care (01) ==
LOC: EDUNIT# 13:19 → ER 13:20
DX: S50.11XD Contusion of right forearm, subsequent encounter (principal); L08.9 Local infection of the skin and subcutaneous tissue, unspecified; I10 Essential (primary) hypertension; F41.9 Anxiety disorder, unspecified; Z85.46 Personal history of malignant neoplasm of prostate; Z85.038 Personal history of other malignant neoplasm of large intestine; Z79.82 Long term (current) use of aspirin; Z79.01 Long term (current) use of anticoagulants; Z87.891 Personal history of nicotine dependence; Z90.79 Acquired absence of other genital organ(s); Z90.49 Acquired absence of other specified parts of digestive tract; Z80.8 Family history of malignant neoplasm of other organs or systems; W19.XXXD Unspecified fall, subsequent encounter
CPT/HCPCS: 36415; 71045; 80053; 81000; 83605; 85025; 85610; 85730; 86141; 87040; 87088

== ENCOUNTER 2019-05-18 14:01 | Emergency (ER) | payer MEDICARE ==
[~2019-05-18] VITALS: Ht 162 cm; Wt 92.7 kg
[~2019-05-18 14:01] MED LIST changes: +CEPH500T PO
--- NOTE | 2019-05-18 14:18 | ED Head Injury ---
General Chief Complaint: Trauma-Non Activation Stated Complaint: HEAD INJ Nursing Triage Note: AMB TO TRIAGE WITHOUT DIFFICULTY. COMPLAINS OF TRIPPING ON THE SIDEWALK AND FALLING AND HITTING THE RIGHT SIDE OF HIS HEAD. COMPLAINS OF PAIN IN HIS HEAD ET NO NECK PAIN. DENIES LOC. PT IS ON COUMADIN. Source: patient Exam Limitations: no limitations History of Present Illness Date Seen by Provider: May 18, 2019 Time Seen by Provider: 14:17 Initial Comments To ER with reports of a head injury. He tripped while walking off the street onto a curb, landed backwards striking the back of his head on concrete. No loss of consciousness no neck pain, no nausea no vomiting no confusion no headache. He is on warfarin. Occurred: just prior to arrival Severity: moderate Location: occipital Method of Injury: direct blow Loss of Consciousness: no loss of consciousness Associated Systoms: No Headaches, No Nausea/Vomiting Allergies and Home Medications Allergies Coded Allergies: NKANo Known Allergies (Verified Allergy, Unknown, 01/22/06) Home Medications Amlodipine Besylate 2.5 Mg Tablet, 2.5 MG PO DAILY, (Reported) Ascorbate Calcium/Bioflavonoid 1 Each Tablet, 1 EACH PO BID, (Reported) Aspirin 81 Mg Tablet.dr, 81 MG PO DAILY, (Reported) Atorvastatin Calcium 20 Mg Tablet, 20 MG PO DAILY, (Reported) Calcium Crb&Cit/D3/Min34/Ana 1 Each Tablet, 1 EACH PO BID, (Reported) Carvedilol 6.25 Mg Tablet, 6.25 MG PO BID, (Reported) Cephalexin 500 Mg Tablet, 500 MG PO TID Prescribed by: MARYBEL REYNOLDS on 12/29/18 1634 Docusate Sodium 100 Mg Tablet, 100 MG PO DAILY PRN for CONSTIPATION-1ST LINE, (Reported) Hydrocodone/Acetaminophen 1 Each Tablet, 0.5-1 EACH PO Q4-6HR PRN for PAIN- MODERATE Prescribed by: NALDO SIFUENTES on 01/12/18 0020 Lisinopril 20 Mg Tablet, 20 MG PO DAILY, (Reported) Multivit-Min/FA/Lycopen/Lutein 1 Each Tablet, 1 EACH PO DAILY, (Reported) Warfarin Sodium 7.5 Mg Tablet, 7.5 MG PO SuMoTuWeThFr, (Reported) Warfarin Sodium 5 Mg Tablet, 5 MG PO Sa, (Reported) Patient Home Medication List Home Medication List Reviewed: Yes Review of Systems Review of Systems Constitutional: see HPI Eyes: No Symptoms Reported Ears, Nose, Mouth, Throat: no symptoms reported Respiratory: no symptoms reported Cardiovascular: no symptoms reported Genitourinary: no symptoms reported Musculoskeletal: no symptoms reported Skin: no symptoms reported Psychiatric/Neurological: No Symptoms Reported; Denies Cognitive Dysfunction, Denies Headache Endocrine: No Symptoms Reported Past Bksbguw-Kbktnk-Toouwz Hx Patient Social History Alcohol Use: Occasionally Uses Number of Drinks Today: BB Alcohol Beverage of Choice: [place] Recreational Drug Use: No Smoking Status: Former Smoker Type Used: Cigarettes Former Smoker, Quit: Oct 10, 2014 2nd Hand Smoke Exposure: No Recent Foreign Travel: No Contact w/Someone Who Travel: No Recent Infectious Disease Expo: No Recent Hopitalizations: No Immunizations Up To Date Tetanus Booster (TDap): Unknown Date of Influenza Vaccine: Jan 04, 2011 Seasonal Allergies Seasonal Allergies: No Past Medical History Surgeries: Yes (PROSTATE, HERNIA REPAIR, Colon resection x2) Abdominal, Prostatectomy Respiratory: No (SMOKER/CIGARS) Currently Using CPAP: No Currently Using BIPAP: No Cardiac: Yes Deep Vein Thrombosis, Hypertension Neurological: No Reproductive Disorders: No Sexually Transmitted Disease: No HIV/AIDS: No Gastrointestinal: Yes (Hernia repair, Colon resection) Gastrointestinal Bleed, Diverticulosis Musculoskeletal: No Endocrine: No Cancer: Yes Prostate, Colon Did You Recieve Any Treatments: Yes What Type of Treatment Did You: Radiation, Surgical Intervention Psychosocial: Yes Anxiety Integumentary: No Blood Disorders: Yes (hx of SEPSIS, hx of dvt) Family Medical History Cancer of mouth 19 FATHER (PT UNSURE OF TYPE OF CANCER FATHER HAD) Diabetes mellitus 19 MOTHER G8 BROTHER Physical Exam Vital Signs Vital Signs - First Documented 05/18/19 14:03 Temp 36.8 Pulse 70 Resp 16 B/P (MAP) 178/73 (108) Pulse Ox 96 O2 Delivery Room Air Capillary Refill : Less Than 3 Seconds Height, Weight, BMI Height: 5'4.00" Weight: 200lbs. 0oz. 90.828323wy; 35.00 BMI Method:Stated General Appearance: WD/WN, no apparent distress HEENT: PERRL/EOMI, normal ENT inspection, TMs normal, other (alert and oriented GCS 15 there is no scalp laceration or palpable scalp hematoma.) Neck: non-tender, full range of motion Respiratory: no respiratory distress, no accessory muscle use Extremities: normal range of motion, non-tender Psychiatric: alert, oriented x 3 Crainal Nerves: normal hearing, normal speech, PERRL Skin: normal color, warm/dry Alli Coma Score Best Eye Response: (4) Open Spontaneously Best Verbal Response: (5) Oriented Best Motor Response: (6) Obeys Commands Alli Total: 15 Progress/Results/Core Measures Results/Orders Lab Results Laboratory Tests Test 05/18/19 15:37 Range/Units Prothrombin Time 13.3 12.2-14.7 SEC INR Comment 1.0 0.8-1.4 My Orders Orders - TJ FLOWER APRN Protime With Inr (05/18/19 14:35) Vital Signs/I&O 05/18/19 14:03 Temp 36.8 Pulse 70 Resp 16 B/P (MAP) 178/73 (108) Pulse Ox 96 O2 Delivery Room Air Blood Pressure Mean: 108 Departure Communication (Admissions) NAME: DOMITILA WRIGHT [facility] REC#: [id number] PT STATUS: REG ER : 1930 PHYSICIAN: JENNIFER KAMARA MD ADMIT DATE: 05/18/19/ER Draft Date of Exam:05/18/19 CT HEAD/CERVICAL SPINE WO PROCEDURE: CT head and CT cervical spine without contrast. TECHNIQUE: Multiple contiguous axial images were obtained through the brain and cervical spine without the use of intravenous contrast. Sagittal and coronal reformations through the cervical spine were then performed. Auto Exposure Controls were utilized during the CT exam to meet ALARA standards for radiation dose reduction. All CT scans use one or more of the following dose optimizing techniques: automated exposure control, MA and/or KvP adjustment based on patient size and exam type or iterative reconstruction. INDICATION: Trauma, fall and hit right side of head. COMPARISON: CT head and cervical spine from 12/27/2018. FINDINGS: CT head: No hyperdense hemorrhage or space-occupying mass. No hydrocephalus or midline shift. Global atrophy is unchanged. Chronic periventricular white matter hypoattenuation favors chronic small vessel ischemic disease. No skull fracture. Paranasal sinuses and mastoid air cells are clear. Bilateral cataract surgery has likely been performed. Globes are intact. CT cervical spine: No acute fracture or traumatic malalignment. However, there are multiple new sclerotic lesions throughout the cervical vertebral bodies and posterior elements most compatible with blastic metastases. No spinal stenosis. Heterogeneous thyroid is without discrete nodule. No cervical lymphadenopathy. Visualized lung apices are clear. IMPRESSION: 1. No acute intracranial hemorrhage or skull fracture. 2. No fracture or traumatic malalignment in cervical spine. 3. 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 These are new since CT cervical spine from 12/27/2018 and are suspicious for prostate cancer metastases. Nonemergent nuclear medicine whole-body bone scan is suggested for further delineation of the extent of metastatic disease. 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 Decision time for Depature: 16:09 Referrals: JOSE ALEJANDRO DONALDSON MD (PCP/Family) Primary Care Physician Patient Instructions: Bone Metastasis Add. Discharge Instructions: 1. Return to ER for any concerns 2. Follow-up with your doctor within 24-48 hours for recheck, it is possible to have a delayed intracranial bleed, for this reason he needs to be rechecked in about 24-48 hours. If she develop any nausea vomiting confusion or headache you need to return to the emergency room in the interim. Follow-up with oncology at [facility] in regards to the bony lesions in your cervical spine. All discharge instructions reviewed with patient and/or family. Voiced understanding. Copy Copies To 1: JOSE ALEJANDRO DONALDSON MD, PETER J APRN May 18, 2019 14:18
--- NOTE | 2019-05-18 16:00 | Diagnostic Imaging Report ---
PROCEDURE: CT head and CT cervical spine without contrast. TECHNIQUE: Multiple contiguous axial images were obtained through the brain and cervical spine without the use of intravenous contrast. Sagittal and coronal reformations through the cervical spine were then performed. Auto Exposure Controls were utilized during the CT exam to meet ALARA standards for radiation dose reduction. All CT scans use one or more of the following dose optimizing techniques: automated exposure control, MA and/or KvP adjustment based on patient size and exam type or iterative reconstruction. INDICATION: Trauma, fall and hit right side of head. COMPARISON: CT head and cervical spine from 12/27/2018. FINDINGS: CT head: No hyperdense hemorrhage or space-occupying mass. No hydrocephalus or midline shift. Global atrophy is unchanged. Chronic periventricular white matter hypoattenuation favors chronic small vessel ischemic disease. No skull fracture. Paranasal sinuses and mastoid air cells are clear. Bilateral cataract surgery has likely been performed. Globes are intact. CT cervical spine: No acute fracture or traumatic malalignment. However, there are multiple new sclerotic lesions throughout the cervical vertebral bodies and posterior elements most compatible with blastic metastases. No spinal stenosis. Heterogeneous thyroid is without discrete nodule. No cervical lymphadenopathy. Visualized lung apices are clear. IMPRESSION: 1. No acute intracranial hemorrhage or skull fracture. 2. No fracture or traumatic malalignment in cervical spine. 3. 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 These are new since CT cervical spine from 12/27/2018 and are suspicious for prostate cancer metastases. Nonemergent nuclear medicine whole-body bone scan is suggested for further delineation of the extent of metastatic disease. Dictated by: Dictated on workstation # [id number]
[2019-05-18 16:12] LABS: PROTHROMBIN TIME PATIENT 13.3 SEC (12.2-14.7)
[2019-05-18 16:32] VITALS: BP 178/69
== END 2019-05-18 16:32 | disposition home or self-care (01) ==
LOC: EDUNIT# 14:01 → ER 14:02
DX: S09.90XA Unspecified injury of head, initial encounter (principal); C18.9 Malignant neoplasm of colon, unspecified; C61 Malignant neoplasm of prostate; C79.51 Secondary malignant neoplasm of bone; I10 Essential (primary) hypertension; R40.2142 Coma scale, eyes open, spontaneous, at arrival to emergency department; R40.2252 Coma scale, best verbal response, oriented, at arrival to emergency department; R40.2362 Coma scale, best motor response, obeys commands, at arrival to emergency department; Z86.718 Personal history of other venous thrombosis and embolism; Z79.82 Long term (current) use of aspirin; Z79.01 Long term (current) use of anticoagulants; Z77.22 Contact with and (suspected) exposure to environmental tobacco smoke (acute) (chronic); Z87.891 Personal history of nicotine dependence; Z87.19 Personal history of other diseases of the digestive system; Z80.8 Family history of malignant neoplasm of other organs or systems; W01.198A Fall on same level from slipping, tripping and stumbling with subsequent striking against other object, initial encounter
CPT/HCPCS: 36415; 70450; 72125; 85610

== ENCOUNTER 2020-03-12 07:56 | Outpatient (CLI) | payer OTHER, MEDICARE ==
[~2020-03-12] VITALS: Ht 162 cm; Wt 92.7 kg
[2020-03-12] VITALS (7 sets, daily range): BP systolic 102–112; BP diastolic 49–68
[~2020-03-12 07:56] MED LIST changes: +ACHD5005 PO; -HYDR-3812 PO; +WARF7.5T3 PO; -WARF7.5T49 PO
[2020-03-12] MEDS ORDERED: NS IV 500 ML 500 ML ONE (08:15)
[2020-03-12] MEDS ORDERED: NS IV 500 ML 500 ML IV ONE (08:45)
[2020-03-12] MEDS ORDERED: FUROSEMIDE 40 MG/4 ML INJ (LASIX) IV ONE (08:45)
[2020-03-12] MEDS ORDERED: FUROSEMIDE 40 MG/4 ML INJ (LASIX) ONE (11:53)
[2020-03-12 15:22] LABS: HEMOGLOBIN 7.8 g/dL (13.3-17.7)
== END 2020-03-12 14:55 | disposition home or self-care (01) ==
LOC: SDC 07:56
PROVIDERS: ATTEND Nurse Practitioner Family
DX: D64.9 Anemia, unspecified (principal)
CPT/HCPCS: 36430; 85014; 85018; 86850; 86900; 86901; 86920; P9016; 36415